=== PATIENT | female | born 1985 | race African-American/Black ===

== ENCOUNTER 2019-12-24 08:39 | Emergency (ER) | payer BC, SELFPAY ==
--- NOTE | 2019-12-24 08:52 | ECG_ITS ---
Test Reason : TACHY Blood Pressure : / mmHG Vent. Rate : 100 BPM Atrial Rate : 100 BPM P-R Int : 132 ms QRS Dur : 088 ms QT Int : 336 ms P-R-T Axes : 047 010 002 degrees QTc Int : 433 ms Sinus tachycardia Minimal voltage criteria for LVH, may be normal variant Nonspecific T wave abnormality RSR' or QR pattern in V1 suggests right ventricular conduction delay Abnormal ECG No previous ECGs available Referred By: Lidya Guo Electronically Signed By:OTIS PHELPS MD
--- NOTE | 2019-12-24 08:58 | ED.DIZZY ---
HPI - Dizziness General Chief Complaint: Dizziness Stated Complaint: TACHYCARDIA AND DIZZINESS X'S 4 HOURS Time Seen by Provider: 12/24/19 08:52 Source: patient Mode of arrival: ambulatory Limitations: no limitations History of Present Illness HPI Narrative: 34-year-old female with a past medical history mental health here with feelings of dizziness, palpitations since waking. The patient on arrival tells me she is feeling improved. Per EMS reports when they arrived the patient had a heart rate of 120 was very anxious appearing. The patient on arrival here has a heart rate of 100. She tells me her dizziness is improved. She had no associated chest pain or shortness of breath or headache with her symptoms. MD elicited complaint: dizziness Onset (ago): hour(s) Timing: awoke with symptoms Severity: mild Description: lightheadedness History of similar symptoms: No Exacerbating factors: change in body position Relieving factors: remaining still, rest and lying down Associated symptoms: palpatations Related Data Allergies Allergy/AdvReac Type Severity Reaction Status Date / Time haloperidol [From HALDOL] AdvReac Unknown EYES Unverified 11/03/19 19:18 ROLLED BACK Review of Systems Review of Systems: Yes all other systems are reviewed and are negative Constitutional: Constitutional: Reports no additional constitutional complaints, Denies body ache(s), Denies chills, Denies fever(s), Denies headache(s) and Denies weakness Eyes: Eyes: Reports no additional eye complaints and Denies change in vision ENT: Reports system reviewed and no additional complaints, except as documented, Reports dizziness, Denies headache(s), Denies nasal congestion, Denies nasal discharge and Denies neck pain Cardiovascular: Cardiovascular: Reports no additional cardiovascular complaints, Denies chest pain, Denies leg edema, Reports palpitations and Denies dyspnea Respiratory: Respiratory: Reports no additional respiratory complaints, Denies cough and Denies dyspnea Gastrointestinal: Gastrointestinal: Reports no additional gastrointestinal complaints, Denies abdominal pain, Denies diarrhea, Denies nausea and Denies vomiting Genitourinary: Genitourinary: Reports no additional female genitourinary complaints and Denies urinary incontinence Musculoskeletal: Musculoskeletal: Reports no additional musculoskeletal complaints, Denies back pain, Denies arthralgias, Denies joint swelling, Denies neck pain, Denies numbness and Denies tingling Integumentary/Breasts: Skin/Breast: Reports system reviewed and no additional complaints, except as docu and Denies rash Neurologic: Reports system reviewed and no additional complaints, except as documented, Denies Abnormal speech present, Reports dizziness, Denies headache(s), Denies numbness, Denies tingling and Denies weakness Endocrine: Endocrine: Reports palpitations PMFSH Past Medical History Attestation statement: The following information was validated with the patient. Source: obtained from family and nursing notes reviewed Medical History Psychosis Social History Social History Smoking Status: Never smoker Use of substances other than those prescribed or required for medical reasons: No Advance Directives: No Advance Directives Information Provided: No Physical Exam Vital Signs: Vital Signs: Last Vital Signs Temp 98.6 F 12/24/19 08:59 Pulse 96 12/24/19 10:20 Resp 20 12/24/19 08:59 BP 112/74 12/24/19 10:20 Pulse Ox 99 12/24/19 10:20 Body Mass Index 34.3 Const: General: cooperative, healthy appearing, comfortable and no acute distress Orientation/consciousness: patient oriented x3 Limitations: no limitations HENMT: Head: Yes normal to inspection Ears: hearing grossly normal bilaterally General nose exam: Normal external nose present Face and sinus: Yes normal facial exam Mouth: Normal oral and palatal mucosa present Throat: Yes posterior oropharynx normal Eyes: General: appearance normal, both eyes and all related structures Pupils: Equal, round and reactive pupils present Neck: Neck: Yes normal visual inspection Chest: Chest palpation & inspection: normal inspection of the chest Resp: Effort & Inspection: normal respiratory effort Auscultation: clear to auscultation bilaterally Cardio: Rate: regular rate Rhythm: regular rhythm Peripheral pulses: Peripheral pulses 2+ throughout GI: Inspection: Yes normal to inspection Palpation (GI): Soft to palpation and nontender Auscultation: normal bowel sounds Back/Spine/Pelvis: Thoracic/Lumbar Spine: thoracic and lumbar spine normal to inspection Skin: General skin exam: no rashes or lesions noted Neuro: General: patient oriented x3, Normal light touch and pain sensation, no focal motor deficits and normal sensation to monofilament Cranial nerves: Yes CN's II-XII intact bilaterally and Yes Equal, round and reactive pupils present Cognition (Neuro): normal cognition Speech: No Abnormal speech present Gait exam (Neuro): Normal gait present Motor exam (neuro): 5/5 motor strength present throughout Sensory Exam: Normal double simultaneous stimulation for sensation Coordination: [id number] test normal, [id number] test normal and tandem gait normal Extrem: General: Yes normal to inspection Course Course Course Narrative: 34-year-old female here with dizziness and palpitations which began with waking. On arrival symptoms are improving. The patient has a normal exam. Stable vital signs. Normal neuro exam. Will check labs, UA, urine , EKG, orthostatic vital signs. 1030- labs reviewed and unremarkable with the exception of mildly elevated TSH. Free T4 pending. UA and negative. EKG shows normal sinus rhythm. Orthostatic vital signs are negative. 1200-free T4 negative. Patient feeling improved and tolerating p.o.. Reviewed findings with the lab with the patient. She can follow-up outpatient with her primary care doctor. Reviewed worrisome signs and symptoms and when to return to the emergency department. Comfortable discharge home. MDM - Dizziness MDM Narrative Medical decision making narrative: ACS, orthostatic hypotension, anxiety, electrolyte abnormality, anemia, thyroid disease, tachycarrythmia Less likely ACS with unremarkable EKG and negative troponin, less likely orthostatic hypotension with negative orthostatics, less likely electrolyte abnormality/anemia with normal labs. Less likely tachyarrhythmia with no tachy or abnormal rhythms noted on machine cementer and folder while in the emergency department for 3-4 hours. May be hypothyroidism with abnormal TSH but free t4 normal so patient can followup with PCP. Medical Records Attestation: I reviewed the patient's medical records. Lab Data Attestation: I reviewed the patient's lab results. Result diagrams: 12/24/19 09:31 12/24/19 09:32 Labs: Lab Results 12/24/19 12/24/19 12/24/19 Range/Units 09:31 09:32 09:32 WBC 7.1 (4.8-10.8) X10*3/uL RBC 4.36 (4.20-5.50) X10*6/uL Hgb 13.1 (12.0-16.0) g/dl Hct 39.7 (37-47) % MCV 91.1 (80-98) fL MCH 30.0 (27.0-33.0) pg MCHC 33.0 (31.0-35.0) g/dl RDW 14.1 (11.0-16.0) % Plt Count 231 (160-400) X10*3/uL MPV 9.9 (9.4-12.3) fL Immature Gran % (Auto) 0.3 (0.0-0.4) % Neut % (Auto) 58.8 (45-73) % Lymph % (Auto) 31.7 (20-40) % [place] % (Auto) 7.1 (2-11) % Eos % (Auto) 1.4 (0-4) % Baso % (Auto) 0.7 (0-2) % Lymph # (Auto) 2.2 (1.2-4.9) X10*3/uL [place] # (Auto) 0.5 (0.1-1.2) X10*3/uL Eos # (Auto) 0.1 (0.0-0.4) X10*3/uL Baso # (Auto) 0.1 (0.0-0.2) X10*3/uL Abs Immat Gran (auto) 0.02 (0.00-0.03) X10*3/uL Absolute Neuts (auto) 4.2 (2.0-8.3) X10*3/uL Absolute Nucleated RBC 0.000 (0.0-0.012) X10*3/uL Nucleated RBC % (auto) 0.0 (0.0-0.2) /100WBC Sodium 139 (135-145) mmol/L Potassium 3.7 (3.3-5.1) mmol/l Chloride 106 (96-108) mmol/L Carbon Dioxide 24 (22-29) mmol/L Anion Gap 13 (12-20) BUN 15 (9-16) mg/dL Creatinine 0.92 (0.5-1.4) mg/dL Estim Creat Clear Calc 94.9 Estimated GFR > 60 Random Glucose 113 (60-115) mg/dL Calcium 8.2 L (8.4-10.2) mg/dL Magnesium 2.1 (1.6-2.6) mg/dL Total Bilirubin 0.3 (0.0-1.0) mg/dL Direct Bilirubin < 0.2 (0.0-0.5) mg/dL AST 12 (5-31) U/L ALT 15 (0-31) U/L Alkaline Phosphatase 72 (39-117) U/L Troponin I High Sens < 3.5 (<3.5-17.0) ng/L Total Protein 6.3 L (6.5-8.0) g/dL Albumin 4.1 (3.5-5.0) g/dL TSH 4.91 H (0.32-4.0) uIU/mL Free T4 0.97 (0.71-1.85) ng/dL Urine Color Urine Appearance Urine pH (5.0-8.0) Ur Specific [place] (1.005-1.025) Urine Protein (NEG-TRACE) MG/DL Urine Glucose (UA) (NEG) MG/DL Urine Ketones (NEG) MG/DL Urine Blood (NEG) Urine Nitrite (NEG) Ur Leukocyte Esterase (NEG) Urine RBC (0) /HPF Urine WBC (0-4) /HPF Ur Squamous Epith Cells /LPF Urine Bacteria /LPF Urine Test (NEGATIVE) 12/24/19 Range/Units 09:51 WBC (4.8-10.8) X10*3/uL RBC (4.20-5.50) X10*6/uL Hgb (12.0-16.0) g/dl Hct (37-47) % MCV (80-98) fL MCH (27.0-33.0) pg MCHC (31.0-35.0) g/dl RDW (11.0-16.0) % Plt Count (160-400) X10*3/uL MPV (9.4-12.3) fL Immature Gran % (Auto) (0.0-0.4) % Neut % (Auto) (45-73) % Lymph % (Auto) (20-40) % [place] % (Auto) (2-11) % Eos % (Auto) (0-4) % Baso % (Auto) (0-2) % Lymph # (Auto) (1.2-4.9) X10*3/uL [place] # (Auto) (0.1-1.2) X10*3/uL Eos # (Auto) (0.0-0.4) X10*3/uL Baso # (Auto) (0.0-0.2) X10*3/uL Abs Immat Gran (auto) (0.00-0.03) X10*3/uL Absolute Neuts (auto) (2.0-8.3) X10*3/uL Absolute Nucleated RBC (0.0-0.012) X10*3/uL Nucleated RBC % (auto) (0.0-0.2) /100WBC Sodium (135-145) mmol/L Potassium (3.3-5.1) mmol/l Chloride (96-108) mmol/L Carbon Dioxide (22-29) mmol/L Anion Gap (12-20) BUN (9-16) mg/dL Creatinine (0.5-1.4) mg/dL Estim Creat Clear Calc Estimated GFR Random Glucose (60-115) mg/dL Calcium (8.4-10.2) mg/dL Magnesium (1.6-2.6) mg/dL Total Bilirubin (0.0-1.0) mg/dL Direct Bilirubin (0.0-0.5) mg/dL AST (5-31) U/L ALT (0-31) U/L Alkaline Phosphatase (39-117) U/L Troponin I High Sens (<3.5-17.0) ng/L Total Protein (6.5-8.0) g/dL Albumin (3.5-5.0) g/dL TSH (0.32-4.0) uIU/mL Free T4 (0.71-1.85) ng/dL Urine Color YELLOW Urine Appearance HAZY Urine pH 5.5 (5.0-8.0) Ur Specific [place] >= 1.030 H (1.005-1.025) Urine Protein NEG (NEG-TRACE) MG/DL Urine Glucose (UA) NEG (NEG) MG/DL Urine Ketones NEG (NEG) MG/DL Urine Blood TRACE (NEG) Urine Nitrite NEG (NEG) Ur Leukocyte Esterase NEG (NEG) Urine RBC 0-2 (0) /HPF Urine WBC 1-4 (0-4) /HPF Ur Squamous Epith Cells 3+ /LPF Urine Bacteria NONE /LPF Urine Test NEGATIVE (NEGATIVE) ECG Data Attestation: I personally reviewed and interpreted this ECG as follows: ECG interpretation date: 12/24/19 Interpretation: Normal sinus rhythm with a rate of 100. Normal p.r., normal QRS, normal QT, nonspecific T-wave abnormality. Discharge Plan Discharge Clinical Impression: Dizziness Patient Disposition: Home, Self-Care Instructions: Dizziness (ED) Additional Instructions: Change positions slowly Your thyroid test today was slightly abnormal. Please follow-up with your PCP in regards to this. Referrals: Lilli Grissom DO [Primary Care Provider] - 2 days Interventions: ED Discharge Assessment Last Done: 12/24/19 11:52
[2019-12-24 08:59] VITALS: BP 114/76; BP 119/75; PULSE 102; RESP 20; TEMP 37; O2SAT 97; O2SAT 98; BMI 34.3
[2019-12-24 09:36] VITALS: BP 106/66; PULSE 98
[2019-12-24 09:37] VITALS: BP 111/79; PULSE 96
[2019-12-24 09:37] LABS: MANUAL DIFF FLAG NO
[2019-12-24 09:38] VITALS: BP 122/74; PULSE 104
[2019-12-24 09:38] LABS: Basophils Absolute Auto 0.1 X10*3/uL (0.0-0.2); Basophils Percent Auto 0.7 % (0-2); Eosinophils Absolute Auto 0.1 X10*3/uL (0.0-0.4); Eosinophils Percent Auto 1.4 % (0-4); Hematocrit 39.7 % (37-47); Hemoglobin 13.1 g/dl (12.0-16.0); Imm Gran Abs Auto 0.02 X10*3/uL (0.00-0.03); Imm Gran Pct Auto 0.3 % (0.0-0.4); Lymphocytes Absolute Auto 2.2 X10*3/uL (1.2-4.9); Lymphocytes Percent Auto 31.7 % (20-40); Mean Corpuscular Volume 91.1 fL (80-98); Mean Platelet Volume 9.9 fL (9.4-12.3); Monocytes Absolute Auto 0.5 X10*3/uL (0.1-1.2); Monocytes Percent Auto 7.1 % (2-11); Neutrophils Absolute Auto 4.2 X10*3/uL (2.0-8.3); Neutrophils Percent Auto 58.8 % (45-73); Platelet Count 231 X10*3/uL (160-400); Red Blood Count 4.36 X10*6/uL (4.20-5.50); Red Cell Distribution Width 14.1 % (11.0-16.0); White Blood Count 7.1 X10*3/uL (4.8-10.8)
[2019-12-24 09:59] LABS: Glucose Urine UA NEG (NEG); Leukocyte Esterase Urine NEG (NEG); Nitrite Urine NEG (NEG); PH 5.5 (5.0-8.0); Specific Gravity - Urine >= 1.030 (1.005-1.025); Urine Blood TRACE (NEG); Urine Ketones NEG (NEG); Urine Protein NEG (NEG-TRACE)
[2019-12-24 10:01] LABS: Alanine Aminotransferase 15 U/L (0-31); Albumin Level 4.1 g/dL (3.5-5.0); Alkaline Phosphatase 72 U/L (39-117); Anion Gap 13 (12-20); Aspartate Amino Transferase 12 U/L (5-31); Bilirubin Direct < 0.2 mg/dL (0.0-0.5); Bilirubin Total 0.3 mg/dL (0.0-1.0); Blood Urea Nitrogen 15 mg/dL (9-16); Calcium 8.2 mg/dL (8.4-10.2); Carbon Dioxide 24 mmol/L (22-29); Chloride 106 mmol/L (96-108); Creatinine Clr Calc Pharmacy 94.9; Estimated Glomerular Filt Rate > 60; Glucose Random 113 mg/dL (60-115); Magnesium 2.1 mg/dL (1.6-2.6); Potassium 3.7 mmol/l (3.3-5.1); Sodium 139 mmol/L (135-145); Total Protein 6.3 g/dL (6.5-8.0)
[2019-12-24 10:04] LABS: Appearance Urine HAZY; Color Urine YELLOW
[2019-12-24 10:06] LABS: UPreg QC Valid YES; Urine Pregnancy NEGATIVE (NEGATIVE)
[2019-12-24 10:08] LABS: Troponin-I High Sensitivity < 3.5 ng/L (<3.5-17.0)
[2019-12-24 10:11] LABS: RBC Urine 0-2 /HPF (0); Squamous Epithelial Cell Urine 3+ /LPF
[2019-12-24 10:20] VITALS: BP 112/74; PULSE 96; O2SAT 99
[2019-12-24 10:22] LABS: Thyroid Stimulating Hormone 4.91 uIU/mL (0.32-4.0)
--- NOTE | 2019-12-24 10:55 | PC.NURSE ---
PT RESTING IN THE STRETCHER, ALERT AND ORIENTED, SKIN PATRICK FOR ETHNICITY. PT DENIES DIXZINESS/PAIN AT THIS TIME.
[2019-12-24 11:43] LABS: Free T4 (Free Thyroxine) 0.97 ng/dL (0.71-1.85)
[2019-12-24 12:00] VITALS: BP 102/58; PULSE 90; RESP 18; O2SAT 100
== END 2019-12-24 12:01 | disposition home or self-care (01) ==
PROVIDERS: Nurse Practitioner Family; Emergency Provider Emergency Medicine; PCP Internal Medicine
DX: R00.0 Tachycardia, unspecified (principal); R42 Dizziness and giddiness; R00.2 Palpitations
CPT/HCPCS: 36415; 80048; 80076; 81001; 81003; 81025; 83735; 84439; 84443; 84484; 85025; 93005; 99283; 99284

== ENCOUNTER 2020-03-16 14:56 | Outpatient (REF) | payer BC, SELFPAY ==
[2020-03-16 17:11] LABS: Hematocrit 43.2 % (37-47); Hemoglobin 14.4 g/dl (12.0-16.0); Mean Corpuscular HGB Conc 33.3 g/dl (31.0-35.0); Mean Corpuscular Hemoglobin 30.6 pg (27.0-33.0); Mean Corpuscular Volume 91.9 fL (80-98); Mean Platelet Volume 10.7 fL (9.4-12.3); NRBC Pct Auto 0.2 /100WBC (0.0-0.2); Neut%MD 37.3 %; Neutrophils Absolute Auto 3.9 X10*3/uL (2.0-8.3); Platelet Count 291 X10*3/uL (160-400); Red Cell Distribution Width 13.6 % (11.0-16.0); WBCANC 10.3 X10*3/uL; White Blood Count 10.3 X10*3/uL (4.8-10.8)
[2020-03-16 17:46] LABS: Atypical Lymph Absolute Manual 0.9 x10*3/uL; Atypical Lymphs Percent Manual 9 % (0-6); Band Neutrophils Percent 0 % (3-5); Lymphocytes Absolute Manual 4.6 X10*3/uL (0.6-4.8); Lymphocytes Percent Manual 45 % (20-40); Monocytes Absolute Manual 0.8 X10*3/uL (0.0-1.2); Monocytes Percent Manual 8 % (2-11); Neutrophils Absolute Manual 3.9 X10*3/uL (2.2-7.9); Neutrophils Percent Manual 38 % (45-73)
[2020-03-16 17:47] LABS: Large Platelet PRESENT; Platelet Estimate NORMAL (NORMAL); Platelet Morphology Comment NOTED; RBC Morphology NORMAL
== END 2020-03-16 14:57 | disposition home or self-care (01) ==
LOC: HO.HMGCLR 14:56
PROVIDERS: PCP Internal Medicine; Visit Provider Psychiatry & Neurology Psychiatry
DX: Z51.81 Encounter for therapeutic drug level monitoring (principal)
CPT/HCPCS: 36415; 85007; 85025; 85027; 85048

== ENCOUNTER 2020-03-23 08:40 | Outpatient (REF) | payer BC, SELFPAY ==
[2020-03-23 11:12] LABS: MANUAL DIFF FLAG NO
[2020-03-23 11:45] LABS: Basophils Absolute Auto 0.1 X10*3/uL (0.0-0.2); Basophils Percent Auto 0.6 % (0-2); Eosinophils Absolute Auto 0.1 X10*3/uL (0.0-0.4); Eosinophils Percent Auto 1.6 % (0-4); Hematocrit 41.7 % (37-47); Hemoglobin 13.7 g/dl (12.0-16.0); Imm Gran Abs Auto 0.03 X10*3/uL (0.00-0.03); Imm Gran Pct Auto 0.3 % (0.0-0.4); Lymphocytes Absolute Auto 4.2 X10*3/uL (1.2-4.9); Lymphocytes Percent Auto 48.8 % (20-40); Mean Corpuscular HGB Conc 32.9 g/dl (31.0-35.0); Mean Corpuscular Volume 91.2 fL (80-98); Mean Platelet Volume 11.1 fL (9.4-12.3); Monocytes Absolute Auto 0.6 X10*3/uL (0.1-1.2); Monocytes Percent Auto 6.6 % (2-11); Neutrophils Absolute Auto 3.6 X10*3/uL (2.0-8.3); Neutrophils Percent Auto 42.1 % (45-73); Platelet Count 270 X10*3/uL (160-400); Red Blood Count 4.57 X10*6/uL (4.20-5.50); Red Cell Distribution Width 14.1 % (11.0-16.0); White Blood Count 8.6 X10*3/uL (4.8-10.8)
== END 2020-03-23 08:41 | disposition home or self-care (01) ==
LOC: HO.HMGCLR 08:40
PROVIDERS: PCP Internal Medicine; Visit Provider Psychiatry & Neurology Psychiatry
DX: Z51.81 Encounter for therapeutic drug level monitoring (principal)
CPT/HCPCS: 36415; 85025; 85048

== ENCOUNTER 2020-03-30 08:42 | Outpatient (REF) | payer BC, SELFPAY ==
[2020-03-30 11:20] LABS: MANUAL DIFF FLAG NO
[2020-03-30 11:28] LABS: Basophils Absolute Auto 0.1 X10*3/uL (0.0-0.2); Basophils Percent Auto 0.7 % (0-2); Eosinophils Absolute Auto 0.2 X10*3/uL (0.0-0.4); Eosinophils Percent Auto 2.9 % (0-4); Hematocrit 39.5 % (37-47); Hemoglobin 12.9 g/dl (12.0-16.0); Imm Gran Abs Auto 0.03 X10*3/uL (0.00-0.03); Imm Gran Pct Auto 0.4 % (0.0-0.4); Lymphocytes Absolute Auto 3.3 X10*3/uL (1.2-4.9); Lymphocytes Percent Auto 46.2 % (20-40); Mean Corpuscular HGB Conc 32.7 g/dl (31.0-35.0); Mean Corpuscular Hemoglobin 29.9 pg (27.0-33.0); Mean Corpuscular Volume 91.4 fL (80-98); Mean Platelet Volume 11.1 fL (9.4-12.3); Monocytes Absolute Auto 0.4 X10*3/uL (0.1-1.2); Monocytes Percent Auto 5.9 % (2-11); NRBC Pct Auto 0.3 /100WBC (0.0-0.2); Neut%MD 43.9 %; Neutrophils Absolute Auto 3.1 X10*3/uL (2.0-8.3); Neutrophils Percent Auto 43.9 % (45-73); Platelet Count 236 X10*3/uL (160-400); Red Blood Count 4.32 X10*6/uL (4.20-5.50); Red Cell Distribution Width 14.8 % (11.0-16.0); WBCANC 7.2 X10*3/uL; White Blood Count 7.2 X10*3/uL (4.8-10.8)
== END 2020-03-30 08:43 | disposition home or self-care (01) ==
LOC: HO.HMGCLR 08:42
PROVIDERS: Visit Provider Psychiatry & Neurology Psychiatry
DX: Z51.81 Encounter for therapeutic drug level monitoring (principal)
CPT/HCPCS: 36415; 85025; 85048

== ENCOUNTER 2020-04-06 09:38 | Outpatient (REF) | payer BC, SELFPAY ==
[2020-04-06 11:08] LABS: MANUAL DIFF FLAG NO
[2020-04-06 11:15] LABS: Basophils Absolute Auto 0.1 X10*3/uL (0.0-0.2); Basophils Percent Auto 0.8 % (0-2); Eosinophils Absolute Auto 0.2 X10*3/uL (0.0-0.4); Eosinophils Percent Auto 2.8 % (0-4); Hemoglobin 13.2 g/dl (12.0-16.0); Imm Gran Abs Auto 0.02 X10*3/uL (0.00-0.03); Imm Gran Pct Auto 0.3 % (0.0-0.4); Lymphocytes Absolute Auto 2.9 X10*3/uL (1.2-4.9); Lymphocytes Percent Auto 45.9 % (20-40); Mean Corpuscular HGB Conc 32.2 g/dl (31.0-35.0); Mean Corpuscular Hemoglobin 29.9 pg (27.0-33.0); Mean Corpuscular Volume 92.8 fL (80-98); Monocytes Absolute Auto 0.5 X10*3/uL (0.1-1.2); Monocytes Percent Auto 7.2 % (2-11); NRBC Pct Auto 0.3 /100WBC (0.0-0.2); Neutrophils Absolute Auto 2.8 X10*3/uL (2.0-8.3); Platelet Count 267 X10*3/uL (160-400); Red Blood Count 4.42 X10*6/uL (4.20-5.50); Red Cell Distribution Width 15.1 % (11.0-16.0); White Blood Count 6.4 X10*3/uL (4.8-10.8)
== END 2020-04-06 09:39 | disposition home or self-care (01) ==
LOC: HO.HMGCLR 09:38
PROVIDERS: PCP Internal Medicine; Visit Provider Psychiatry & Neurology Psychiatry
DX: Z51.81 Encounter for therapeutic drug level monitoring (principal)
CPT/HCPCS: 36415; 85025

== ENCOUNTER 2020-04-13 09:16 | Outpatient (REF) | payer BC, SELFPAY ==
[2020-04-13 11:12] LABS: MANUAL DIFF FLAG NO
[2020-04-13 11:27] LABS: Basophils Absolute Auto 0.1 X10*3/uL (0.0-0.2); Basophils Percent Auto 0.6 % (0-2); Eosinophils Absolute Auto 0.2 X10*3/uL (0.0-0.4); Eosinophils Percent Auto 2.2 % (0-4); Hematocrit 39.5 % (37-47); Hemoglobin 12.9 g/dl (12.0-16.0); Imm Gran Abs Auto 0.03 X10*3/uL (0.00-0.03); Imm Gran Pct Auto 0.4 % (0.0-0.4); Lymphocytes Absolute Auto 3.1 X10*3/uL (1.2-4.9); Lymphocytes Percent Auto 39.9 % (20-40); Mean Corpuscular HGB Conc 32.7 g/dl (31.0-35.0); Mean Corpuscular Hemoglobin 30.4 pg (27.0-33.0); Mean Corpuscular Volume 92.9 fL (80-98); Monocytes Absolute Auto 0.5 X10*3/uL (0.1-1.2); Neutrophils Percent Auto 50.9 % (45-73); Platelet Count 290 X10*3/uL (160-400); Red Blood Count 4.25 X10*6/uL (4.20-5.50); Red Cell Distribution Width 14.7 % (11.0-16.0); White Blood Count 7.8 X10*3/uL (4.8-10.8)
== END 2020-04-13 09:17 | disposition home or self-care (01) ==
LOC: HO.HMGCLR 09:16
PROVIDERS: PCP Internal Medicine; Visit Provider Psychiatry & Neurology Psychiatry
DX: Z51.81 Encounter for therapeutic drug level monitoring (principal)
CPT/HCPCS: 36415; 85025

== ENCOUNTER 2020-04-20 09:00 | Outpatient (REF) | payer BC, SELFPAY ==
[2020-04-20 11:16] LABS: MANUAL DIFF FLAG NO
[2020-04-20 11:30] LABS: Neut%MD 45.5 %; Neutrophils Absolute Auto 3.5 X10*3/uL (2.0-8.3); WBCANC 7.6 X10*3/uL
[2020-04-20 11:34] LABS: Basophils Absolute Auto 0.1 X10*3/uL (0.0-0.2); Basophils Percent Auto 0.8 % (0-2); Eosinophils Absolute Auto 0.2 X10*3/uL (0.0-0.4); Eosinophils Percent Auto 2.4 % (0-4); Hematocrit 40.2 % (37-47); Imm Gran Abs Auto 0.03 X10*3/uL (0.00-0.03); Imm Gran Pct Auto 0.4 % (0.0-0.4); Lymphocytes Absolute Auto 3.3 X10*3/uL (1.2-4.9); Lymphocytes Percent Auto 43.7 % (20-40); Mean Corpuscular HGB Conc 32.3 g/dl (31.0-35.0); Mean Corpuscular Volume 92.6 fL (80-98); Monocytes Absolute Auto 0.6 X10*3/uL (0.1-1.2); Monocytes Percent Auto 7.2 % (2-11); Neutrophils Absolute Auto 3.5 X10*3/uL (2.0-8.3); Neutrophils Percent Auto 45.5 % (45-73); Platelet Count 320 X10*3/uL (160-400); Red Blood Count 4.34 X10*6/uL (4.20-5.50); Red Cell Distribution Width 14.6 % (11.0-16.0); White Blood Count 7.6 X10*3/uL (4.8-10.8)
== END 2020-04-20 09:01 | disposition home or self-care (01) ==
LOC: HO.HMGCLR 09:00
PROVIDERS: PCP Internal Medicine; Visit Provider Psychiatry & Neurology Psychiatry
DX: Z51.81 Encounter for therapeutic drug level monitoring (principal)
CPT/HCPCS: 36415; 85025; 85048

== ENCOUNTER 2020-04-27 08:49 | Outpatient (REF) | payer BC, SELFPAY ==
[2020-04-27 11:02] LABS: MANUAL DIFF FLAG NO
[2020-04-27 11:14] LABS: Basophils Absolute Auto 0.1 X10*3/uL (0.0-0.2); Basophils Percent Auto 0.9 % (0-2); Eosinophils Absolute Auto 0.2 X10*3/uL (0.0-0.4); Eosinophils Percent Auto 2.4 % (0-4); Hematocrit 38.8 % (37-47); Hemoglobin 12.7 g/dl (12.0-16.0); Imm Gran Abs Auto 0.02 X10*3/uL (0.00-0.03); Imm Gran Pct Auto 0.3 % (0.0-0.4); Lymphocytes Absolute Auto 3.5 X10*3/uL (1.2-4.9); Lymphocytes Percent Auto 49.4 % (20-40); Mean Corpuscular HGB Conc 32.7 g/dl (31.0-35.0); Mean Corpuscular Hemoglobin 30.1 pg (27.0-33.0); Mean Corpuscular Volume 91.9 fL (80-98); Mean Platelet Volume 11.2 fL (9.4-12.3); Monocytes Absolute Auto 0.4 X10*3/uL (0.1-1.2); Monocytes Percent Auto 6.2 % (2-11); Neutrophils Absolute Auto 2.9 X10*3/uL (2.0-8.3); Neutrophils Percent Auto 40.8 % (45-73); Platelet Count 288 X10*3/uL (160-400); Red Blood Count 4.22 X10*6/uL (4.20-5.50); Red Cell Distribution Width 14.5 % (11.0-16.0); White Blood Count 7.1 X10*3/uL (4.8-10.8)
== END 2020-04-27 08:50 | disposition home or self-care (01) ==
LOC: HO.HMGCLR 08:49
PROVIDERS: PCP Internal Medicine; Visit Provider Psychiatry & Neurology Psychiatry
DX: Z51.81 Encounter for therapeutic drug level monitoring (principal)
CPT/HCPCS: 36415; 85025

== ENCOUNTER 2020-05-04 10:32 | Outpatient (REF) | payer BC, SELFPAY ==
[2020-05-04 11:43] LABS: MANUAL DIFF FLAG NO
[2020-05-04 11:59] LABS: Basophils Absolute Auto 0.1 X10*3/uL (0.0-0.2); Eosinophils Absolute Auto 0.2 X10*3/uL (0.0-0.4); Eosinophils Percent Auto 2.9 % (0-4); Hematocrit 39.7 % (37-47); Hemoglobin 12.7 g/dl (12.0-16.0); Imm Gran Abs Auto 0.03 X10*3/uL (0.00-0.03); Imm Gran Pct Auto 0.4 % (0.0-0.4); Lymphocytes Percent Auto 41.1 % (20-40); Mean Corpuscular Hemoglobin 29.6 pg (27.0-33.0); Mean Corpuscular Volume 92.5 fL (80-98); Monocytes Absolute Auto 0.4 X10*3/uL (0.1-1.2); Monocytes Percent Auto 5.9 % (2-11); Neut%MD 48.7 %; Neutrophils Absolute Auto 3.5 X10*3/uL (2.0-8.3); Neutrophils Percent Auto 48.7 % (45-73); Platelet Count 273 X10*3/uL (160-400); Red Blood Count 4.29 X10*6/uL (4.20-5.50); Red Cell Distribution Width 14.5 % (11.0-16.0); WBCANC 7.3 X10*3/uL; White Blood Count 7.3 X10*3/uL (4.8-10.8)
== END 2020-05-04 10:33 | disposition home or self-care (01) ==
LOC: HO.HMGCLR 10:32
PROVIDERS: Visit Provider Psychiatry & Neurology Psychiatry
DX: Z51.81 Encounter for therapeutic drug level monitoring (principal)
CPT/HCPCS: 36415; 85025; 85048

== ENCOUNTER 2020-05-11 09:16 | Outpatient (REF) | payer BC, SELFPAY ==
[2020-05-11 11:10] LABS: MANUAL DIFF FLAG NO
[2020-05-11 11:20] LABS: Basophils Absolute Auto 0.1 X10*3/uL (0.0-0.2); Basophils Percent Auto 0.8 % (0-2); Eosinophils Absolute Auto 0.3 X10*3/uL (0.0-0.4); Eosinophils Percent Auto 3.6 % (0-4); Hematocrit 39.4 % (37-47); Hemoglobin 12.7 g/dl (12.0-16.0); Imm Gran Abs Auto 0.02 X10*3/uL (0.00-0.03); Imm Gran Pct Auto 0.3 % (0.0-0.4); Lymphocytes Absolute Auto 3.2 X10*3/uL (1.2-4.9); Lymphocytes Percent Auto 40.7 % (20-40); Mean Corpuscular HGB Conc 32.2 g/dl (31.0-35.0); Mean Corpuscular Hemoglobin 29.9 pg (27.0-33.0); Mean Corpuscular Volume 92.7 fL (80-98); Monocytes Absolute Auto 0.6 X10*3/uL (0.1-1.2); Monocytes Percent Auto 7.9 % (2-11); NRBC Pct Auto 0.4 /100WBC (0.0-0.2); Neutrophils Absolute Auto 3.7 X10*3/uL (2.0-8.3); Neutrophils Percent Auto 46.7 % (45-73); Platelet Count 270 X10*3/uL (160-400); Red Blood Count 4.25 X10*6/uL (4.20-5.50); Red Cell Distribution Width 14.5 % (11.0-16.0); White Blood Count 7.8 X10*3/uL (4.8-10.8)
== END 2020-05-11 09:17 | disposition home or self-care (01) ==
LOC: HO.HMGCLR 09:16
PROVIDERS: PCP Internal Medicine; Visit Provider Psychiatry & Neurology Psychiatry
DX: Z51.81 Encounter for therapeutic drug level monitoring (principal)
CPT/HCPCS: 36415; 85025

== ENCOUNTER 2020-05-18 11:02 | Outpatient (REF) | payer BC, SELFPAY ==
[2020-05-18 13:49] LABS: MANUAL DIFF FLAG NO
[2020-05-18 13:55] LABS: Basophils Absolute Auto 0.1 X10*3/uL (0.0-0.2); Basophils Percent Auto 0.7 % (0-2); Eosinophils Absolute Auto 0.2 X10*3/uL (0.0-0.4); Hematocrit 40.7 % (37-47); Hemoglobin 13.1 g/dl (12.0-16.0); Imm Gran Abs Auto 0.02 X10*3/uL (0.00-0.03); Imm Gran Pct Auto 0.3 % (0.0-0.4); Lymphocytes Absolute Auto 2.8 X10*3/uL (1.2-4.9); Lymphocytes Percent Auto 41.3 % (20-40); Mean Corpuscular HGB Conc 32.2 g/dl (31.0-35.0); Mean Corpuscular Hemoglobin 29.9 pg (27.0-33.0); Mean Corpuscular Volume 92.9 fL (80-98); Mean Platelet Volume 11.2 fL (9.4-12.3); Monocytes Absolute Auto 0.5 X10*3/uL (0.1-1.2); Monocytes Percent Auto 7.9 % (2-11); Neutrophils Absolute Auto 3.1 X10*3/uL (2.0-8.3); Neutrophils Percent Auto 46.8 % (45-73); Platelet Count 279 X10*3/uL (160-400); Red Blood Count 4.38 X10*6/uL (4.20-5.50); Red Cell Distribution Width 14.6 % (11.0-16.0); White Blood Count 6.7 X10*3/uL (4.8-10.8)
== END 2020-05-18 11:03 | disposition home or self-care (01) ==
LOC: HO.HMGCLR 11:02
PROVIDERS: PCP Internal Medicine; Visit Provider Psychiatry & Neurology Psychiatry
DX: Z51.81 Encounter for therapeutic drug level monitoring (principal)
CPT/HCPCS: 36415; 85025

== ENCOUNTER 2020-05-25 08:42 | Outpatient (REF) | payer BC, SELFPAY ==
[2020-05-25 11:17] LABS: MANUAL DIFF FLAG NO
[2020-05-25 11:39] LABS: Basophils Absolute Auto 0.1 X10*3/uL (0.0-0.2); Basophils Percent Auto 0.9 % (0-2); Eosinophils Absolute Auto 0.2 X10*3/uL (0.0-0.4); Eosinophils Percent Auto 2.9 % (0-4); Hemoglobin 13.1 g/dl (12.0-16.0); Imm Gran Abs Auto 0.02 X10*3/uL (0.00-0.03); Imm Gran Pct Auto 0.3 % (0.0-0.4); Lymphocytes Absolute Auto 3.2 X10*3/uL (1.2-4.9); Lymphocytes Percent Auto 49.9 % (20-40); Mean Corpuscular HGB Conc 32.8 g/dl (31.0-35.0); Mean Corpuscular Volume 91.5 fL (80-98); Mean Platelet Volume 11.4 fL (9.4-12.3); Monocytes Absolute Auto 0.5 X10*3/uL (0.1-1.2); Monocytes Percent Auto 6.9 % (2-11); Neutrophils Absolute Auto 2.5 X10*3/uL (2.0-8.3); Neutrophils Percent Auto 39.1 % (45-73); Platelet Count 293 X10*3/uL (160-400); Red Blood Count 4.37 X10*6/uL (4.20-5.50); Red Cell Distribution Width 14.2 % (11.0-16.0); White Blood Count 6.5 X10*3/uL (4.8-10.8)
== END 2020-05-25 08:43 | disposition home or self-care (01) ==
LOC: HO.HMGCLR 08:42
PROVIDERS: Visit Provider Psychiatry & Neurology Psychiatry
DX: Z51.81 Encounter for therapeutic drug level monitoring (principal)
CPT/HCPCS: 36415; 85025; 85048

== ENCOUNTER 2020-06-01 08:37 | Outpatient (REF) | payer BC, SELFPAY ==
[2020-06-01 11:18] LABS: MANUAL DIFF FLAG NO
[2020-06-01 11:28] LABS: Basophils Absolute Auto 0.1 X10*3/uL (0.0-0.2); Basophils Percent Auto 0.8 % (0-2); Eosinophils Absolute Auto 0.2 X10*3/uL (0.0-0.4); Eosinophils Percent Auto 2.5 % (0-4); Hematocrit 41.3 % (37-47); Hemoglobin 13.2 g/dl (12.0-16.0); Imm Gran Abs Auto 0.03 X10*3/uL (0.00-0.03); Imm Gran Pct Auto 0.4 % (0.0-0.4); Lymphocytes Absolute Auto 3.7 X10*3/uL (1.2-4.9); Lymphocytes Percent Auto 48.9 % (20-40); Mean Corpuscular Hemoglobin 29.7 pg (27.0-33.0); Mean Corpuscular Volume 92.8 fL (80-98); Monocytes Absolute Auto 0.5 X10*3/uL (0.1-1.2); Monocytes Percent Auto 7.1 % (2-11); Neutrophils Absolute Auto 3.1 X10*3/uL (2.0-8.3); Neutrophils Percent Auto 40.3 % (45-73); Platelet Count 294 X10*3/uL (160-400); Red Blood Count 4.45 X10*6/uL (4.20-5.50); Red Cell Distribution Width 14.1 % (11.0-16.0); White Blood Count 7.6 X10*3/uL (4.8-10.8)
== END 2020-06-01 08:38 | disposition home or self-care (01) ==
LOC: HO.HMGCLR 08:37
PROVIDERS: Visit Provider Psychiatry & Neurology Psychiatry
DX: Z51.81 Encounter for therapeutic drug level monitoring (principal)
CPT/HCPCS: 36415; 85025

== ENCOUNTER 2020-06-08 11:14 | Outpatient (REF) | payer BC, SELFPAY ==
[2020-06-08 14:03] LABS: MANUAL DIFF FLAG NO
[2020-06-08 14:09] LABS: Basophils Absolute Auto 0.1 X10*3/uL (0.0-0.2); Basophils Percent Auto 0.7 % (0-2); Eosinophils Absolute Auto 0.2 X10*3/uL (0.0-0.4); Eosinophils Percent Auto 2.4 % (0-4); Hematocrit 40.7 % (37-47); Hemoglobin 13.1 g/dl (12.0-16.0); Imm Gran Abs Auto 0.02 X10*3/uL (0.00-0.03); Imm Gran Pct Auto 0.3 % (0.0-0.4); Lymphocytes Absolute Auto 2.6 X10*3/uL (1.2-4.9); Lymphocytes Percent Auto 35.6 % (20-40); Mean Corpuscular HGB Conc 32.2 g/dl (31.0-35.0); Mean Corpuscular Hemoglobin 29.7 pg (27.0-33.0); Mean Corpuscular Volume 92.3 fL (80-98); Mean Platelet Volume 11.1 fL (9.4-12.3); Monocytes Absolute Auto 0.5 X10*3/uL (0.1-1.2); Monocytes Percent Auto 7.2 % (2-11); Neutrophils Absolute Auto 3.9 X10*3/uL (2.0-8.3); Neutrophils Percent Auto 53.8 % (45-73); Platelet Count 281 X10*3/uL (160-400); Red Blood Count 4.41 X10*6/uL (4.20-5.50); Red Cell Distribution Width 14.1 % (11.0-16.0); White Blood Count 7.2 X10*3/uL (4.8-10.8)
== END 2020-06-08 11:15 | disposition home or self-care (01) ==
LOC: HO.HMGCLR 11:14
PROVIDERS: Visit Provider Psychiatry & Neurology Psychiatry
DX: Z51.81 Encounter for therapeutic drug level monitoring (principal); Z79.899 Other long term (current) drug therapy
CPT/HCPCS: 36415; 85025

== ENCOUNTER → 2020-06-12 13:17 | Outpatient (BNVA) | payer BC, SELFPAY | PROVIDERS: PCP Internal Medicine; Visit Provider Dietitian, Registered | DX: E66.9 Obesity, unspecified (principal) | CPT/HCPCS: 97802 ==

== ENCOUNTER 2020-06-15 09:26 | Outpatient (REF) | payer BC, SELFPAY ==
[2020-06-15 11:28] LABS: MANUAL DIFF FLAG NO
[2020-06-15 11:40] LABS: Basophils Absolute Auto 0.1 X10*3/uL (0.0-0.2); Basophils Percent Auto 0.7 % (0-2); Eosinophils Absolute Auto 0.2 X10*3/uL (0.0-0.4); Eosinophils Percent Auto 2.9 % (0-4); Hematocrit 40.8 % (37-47); Hemoglobin 13.2 g/dl (12.0-16.0); Imm Gran Abs Auto 0.04 X10*3/uL (0.00-0.03); Imm Gran Pct Auto 0.5 % (0.0-0.4); Lymphocytes Absolute Auto 2.9 X10*3/uL (1.2-4.9); Mean Corpuscular HGB Conc 32.4 g/dl (31.0-35.0); Mean Corpuscular Hemoglobin 29.9 pg (27.0-33.0); Mean Corpuscular Volume 92.5 fL (80-98); Mean Platelet Volume 11.1 fL (9.4-12.3); Monocytes Absolute Auto 0.5 X10*3/uL (0.1-1.2); Monocytes Percent Auto 6.4 % (2-11); Neutrophils Absolute Auto 3.8 X10*3/uL (2.0-8.3); Neutrophils Percent Auto 50.5 % (45-73); Platelet Count 268 X10*3/uL (160-400); Red Blood Count 4.41 X10*6/uL (4.20-5.50); Red Cell Distribution Width 14.4 % (11.0-16.0); White Blood Count 7.5 X10*3/uL (4.8-10.8)
== END 2020-06-15 09:27 | disposition home or self-care (01) ==
LOC: HO.HMGCLR 09:26
PROVIDERS: PCP Internal Medicine; Visit Provider Psychiatry & Neurology Psychiatry
DX: Z51.81 Encounter for therapeutic drug level monitoring (principal)
CPT/HCPCS: 36415; 85025; 85048

== ENCOUNTER 2020-06-22 08:40 | Outpatient (REF) | payer BC, SELFPAY ==
[2020-06-22 11:39] LABS: MANUAL DIFF FLAG NO
[2020-06-22 12:00] LABS: Basophils Absolute Auto 0.1 X10*3/uL (0.0-0.2); Basophils Percent Auto 0.9 % (0-2); Eosinophils Absolute Auto 0.2 X10*3/uL (0.0-0.4); Eosinophils Percent Auto 2.6 % (0-4); Hematocrit 40.3 % (37-47); Imm Gran Abs Auto 0.02 X10*3/uL (0.00-0.03); Imm Gran Pct Auto 0.3 % (0.0-0.4); Lymphocytes Absolute Auto 3.5 X10*3/uL (1.2-4.9); Lymphocytes Percent Auto 50.6 % (20-40); Mean Corpuscular HGB Conc 32.3 g/dl (31.0-35.0); Mean Corpuscular Hemoglobin 29.7 pg (27.0-33.0); Mean Platelet Volume 11.4 fL (9.4-12.3); Monocytes Absolute Auto 0.4 X10*3/uL (0.1-1.2); Monocytes Percent Auto 5.4 % (2-11); Neutrophils Absolute Auto 2.8 X10*3/uL (2.0-8.3); Neutrophils Percent Auto 40.2 % (45-73); Platelet Count 276 X10*3/uL (160-400); Red Blood Count 4.38 X10*6/uL (4.20-5.50); White Blood Count 6.9 X10*3/uL (4.8-10.8)
== END 2020-06-22 08:41 | disposition home or self-care (01) ==
LOC: HO.HMGCLR 08:40
PROVIDERS: PCP Internal Medicine; Visit Provider Psychiatry & Neurology Psychiatry
DX: Z51.81 Encounter for therapeutic drug level monitoring (principal)
CPT/HCPCS: 36415; 85025; 85048

== ENCOUNTER 2020-06-29 08:23 | Outpatient (REF) | payer BC, SELFPAY ==
[2020-06-29 11:15] LABS: MANUAL DIFF FLAG NO
[2020-06-29 11:26] LABS: Basophils Absolute Auto 0.1 X10*3/uL (0.0-0.2); Basophils Percent Auto 0.9 % (0-2); Eosinophils Absolute Auto 0.2 X10*3/uL (0.0-0.4); Eosinophils Percent Auto 2.8 % (0-4); Hematocrit 40.6 % (37-47); Hemoglobin 12.8 g/dl (12.0-16.0); Imm Gran Abs Auto 0.02 X10*3/uL (0.00-0.03); Imm Gran Pct Auto 0.3 % (0.0-0.4); Lymphocytes Absolute Auto 3.1 X10*3/uL (1.2-4.9); Lymphocytes Percent Auto 48.3 % (20-40); Mean Corpuscular HGB Conc 31.5 g/dl (31.0-35.0); Mean Corpuscular Volume 92.1 fL (80-98); Mean Platelet Volume 11.5 fL (9.4-12.3); Monocytes Absolute Auto 0.4 X10*3/uL (0.1-1.2); Neutrophils Absolute Auto 2.6 X10*3/uL (2.0-8.3); Neutrophils Percent Auto 40.7 % (45-73); Platelet Count 269 X10*3/uL (160-400); Red Blood Count 4.41 X10*6/uL (4.20-5.50); Red Cell Distribution Width 14.1 % (11.0-16.0); White Blood Count 6.3 X10*3/uL (4.8-10.8)
== END 2020-06-29 08:24 | disposition home or self-care (01) ==
LOC: HO.HMGCLR 08:23
PROVIDERS: PCP Internal Medicine; Visit Provider Psychiatry & Neurology Psychiatry
DX: Z51.81 Encounter for therapeutic drug level monitoring (principal); Z79.899 Other long term (current) drug therapy
CPT/HCPCS: 36415; 85025

== ENCOUNTER 2020-07-07 13:17 | Outpatient (REF) | payer BC, SELFPAY ==
[2020-07-07 15:07] LABS: MANUAL DIFF FLAG NO
[2020-07-07 15:10] LABS: Basophils Absolute Auto 0.1 X10*3/uL (0.0-0.2); Basophils Percent Auto 0.8 % (0-2); Eosinophils Absolute Auto 0.2 X10*3/uL (0.0-0.4); Eosinophils Percent Auto 2.9 % (0-4); Hemoglobin 12.8 g/dl (12.0-16.0); Imm Gran Abs Auto 0.02 X10*3/uL (0.00-0.03); Imm Gran Pct Auto 0.3 % (0.0-0.4); Lymphocytes Absolute Auto 3.1 X10*3/uL (1.2-4.9); Mean Corpuscular HGB Conc 32.8 g/dl (31.0-35.0); Mean Corpuscular Volume 91.3 fL (80-98); Mean Platelet Volume 11.3 fL (9.4-12.3); Monocytes Absolute Auto 0.4 X10*3/uL (0.1-1.2); Monocytes Percent Auto 6.4 % (2-11); Neut%MD 42.6 %; Neutrophils Absolute Auto 2.8 X10*3/uL (2.0-8.3); Neutrophils Percent Auto 42.6 % (45-73); Platelet Count 257 X10*3/uL (160-400); Red Blood Count 4.27 X10*6/uL (4.20-5.50); Red Cell Distribution Width 14.2 % (11.0-16.0); WBCANC 6.6 X10*3/uL; White Blood Count 6.6 X10*3/uL (4.8-10.8)
== END 2020-07-07 13:18 | disposition home or self-care (01) ==
LOC: HO.HMGCLR 13:17
PROVIDERS: PCP Internal Medicine; Visit Provider Psychiatry & Neurology Psychiatry
DX: Z51.81 Encounter for therapeutic drug level monitoring (principal); Z79.899 Other long term (current) drug therapy
CPT/HCPCS: 36415; 85025; 85048

== ENCOUNTER 2020-07-13 10:10 | Outpatient (REF) | payer BC, SELFPAY ==
[2020-07-13 11:34] LABS: MANUAL DIFF FLAG NO
[2020-07-13 11:54] LABS: Basophils Percent Auto 0.6 % (0-2); Eosinophils Absolute Auto 0.2 X10*3/uL (0.0-0.4); Eosinophils Percent Auto 2.6 % (0-4); Hematocrit 38.3 % (37-47); Hemoglobin 12.5 g/dl (12.0-16.0); Imm Gran Abs Auto 0.03 X10*3/uL (0.00-0.03); Imm Gran Pct Auto 0.4 % (0.0-0.4); Lymphocytes Absolute Auto 2.9 X10*3/uL (1.2-4.9); Lymphocytes Percent Auto 42.3 % (20-40); Mean Corpuscular HGB Conc 32.6 g/dl (31.0-35.0); Mean Corpuscular Hemoglobin 29.6 pg (27.0-33.0); Mean Corpuscular Volume 90.8 fL (80-98); Mean Platelet Volume 11.3 fL (9.4-12.3); Monocytes Absolute Auto 0.4 X10*3/uL (0.1-1.2); Monocytes Percent Auto 5.4 % (2-11); Neut%MD 48.7 %; Neutrophils Absolute Auto 3.3 X10*3/uL (2.0-8.3); Neutrophils Percent Auto 48.7 % (45-73); Platelet Count 246 X10*3/uL (160-400); Red Blood Count 4.22 X10*6/uL (4.20-5.50); Red Cell Distribution Width 14.5 % (11.0-16.0); WBCANC 6.8 X10*3/uL; White Blood Count 6.8 X10*3/uL (4.8-10.8)
== END 2020-07-13 10:11 | disposition home or self-care (01) ==
LOC: HO.HMGCLR 10:10
PROVIDERS: PCP Internal Medicine; Visit Provider Psychiatry & Neurology Psychiatry
DX: Z79.899 Other long term (current) drug therapy (principal)
CPT/HCPCS: 36415; 85025; 85048

== ENCOUNTER 2020-07-21 13:26 | Outpatient (REF) | payer BC, SELFPAY ==
[2020-07-21 15:09] LABS: MANUAL DIFF FLAG NO
[2020-07-21 15:12] LABS: Basophils Percent Auto 0.6 % (0-2); Eosinophils Absolute Auto 0.2 X10*3/uL (0.0-0.4); Eosinophils Percent Auto 3.3 % (0-4); Hematocrit 39.2 % (37-47); Hemoglobin 12.6 g/dl (12.0-16.0); Imm Gran Abs Auto 0.02 X10*3/uL (0.00-0.03); Imm Gran Pct Auto 0.3 % (0.0-0.4); Lymphocytes Absolute Auto 2.9 X10*3/uL (1.2-4.9); Lymphocytes Percent Auto 43.8 % (20-40); Mean Corpuscular HGB Conc 32.1 g/dl (31.0-35.0); Mean Corpuscular Hemoglobin 29.3 pg (27.0-33.0); Mean Corpuscular Volume 91.2 fL (80-98); Mean Platelet Volume 11.4 fL (9.4-12.3); Monocytes Absolute Auto 0.5 X10*3/uL (0.1-1.2); Monocytes Percent Auto 7.2 % (2-11); Neutrophils Percent Auto 44.8 % (45-73); Platelet Count 247 X10*3/uL (160-400); Red Cell Distribution Width 14.8 % (11.0-16.0); White Blood Count 6.7 X10*3/uL (4.8-10.8)
== END 2020-07-21 13:27 | disposition home or self-care (01) ==
LOC: HO.HMGCLR 13:26
PROVIDERS: Visit Provider Psychiatry & Neurology Psychiatry
DX: Z79.899 Other long term (current) drug therapy (principal)
CPT/HCPCS: 36415; 85025

== ENCOUNTER 2020-07-27 08:17 | Outpatient (REF) | payer BC, SELFPAY ==
[2020-07-27 11:08] LABS: MANUAL DIFF FLAG NO
[2020-07-27 11:31] LABS: Basophils Absolute Auto 0.1 X10*3/uL (0.0-0.2); Basophils Percent Auto 1.1 % (0-2); Eosinophils Absolute Auto 0.3 X10*3/uL (0.0-0.4); Eosinophils Percent Auto 3.5 % (0-4); Hematocrit 41.8 % (37-47); Hemoglobin 13.4 g/dl (12.0-16.0); Imm Gran Abs Auto 0.02 X10*3/uL (0.00-0.03); Imm Gran Pct Auto 0.3 % (0.0-0.4); Lymphocytes Absolute Auto 3.6 X10*3/uL (1.2-4.9); Mean Corpuscular HGB Conc 32.1 g/dl (31.0-35.0); Mean Corpuscular Hemoglobin 29.4 pg (27.0-33.0); Mean Corpuscular Volume 91.7 fL (80-98); Monocytes Absolute Auto 0.5 X10*3/uL (0.1-1.2); Monocytes Percent Auto 6.4 % (2-11); Neutrophils Absolute Auto 3.1 X10*3/uL (2.0-8.3); Neutrophils Percent Auto 40.7 % (45-73); Platelet Count 275 X10*3/uL (160-400); Red Blood Count 4.56 X10*6/uL (4.20-5.50); Red Cell Distribution Width 14.7 % (11.0-16.0); White Blood Count 7.5 X10*3/uL (4.8-10.8)
== END 2020-07-27 08:18 | disposition home or self-care (01) ==
LOC: HO.HMGCLR 08:17
PROVIDERS: PCP Internal Medicine; Visit Provider Psychiatry & Neurology Psychiatry
DX: Z79.899 Other long term (current) drug therapy (principal)
CPT/HCPCS: 36415; 85025

== ENCOUNTER 2020-08-03 10:51 | Outpatient (REF) | payer BC, SELFPAY ==
[2020-08-03 14:00] LABS: MANUAL DIFF FLAG NO
[2020-08-03 14:08] LABS: Basophils Absolute Auto 0.1 X10*3/uL (0.0-0.2); Eosinophils Absolute Auto 0.2 X10*3/uL (0.0-0.4); Eosinophils Percent Auto 2.7 % (0-4); Hematocrit 41.6 % (37-47); Hemoglobin 13.3 g/dl (12.0-16.0); Imm Gran Abs Auto 0.02 X10*3/uL (0.00-0.03); Imm Gran Pct Auto 0.3 % (0.0-0.4); Lymphocytes Absolute Auto 3.4 X10*3/uL (1.2-4.9); Lymphocytes Percent Auto 49.4 % (20-40); Mean Corpuscular Hemoglobin 29.1 pg (27.0-33.0); Mean Platelet Volume 11.3 fL (9.4-12.3); Monocytes Absolute Auto 0.4 X10*3/uL (0.1-1.2); Monocytes Percent Auto 6.3 % (2-11); Neutrophils Absolute Auto 2.8 X10*3/uL (2.0-8.3); Neutrophils Percent Auto 40.3 % (45-73); Platelet Count 320 X10*3/uL (160-400); Red Blood Count 4.57 X10*6/uL (4.20-5.50); Red Cell Distribution Width 14.6 % (11.0-16.0)
== END 2020-08-03 10:52 | disposition home or self-care (01) ==
LOC: HO.HMGCLR 10:51
PROVIDERS: PCP Internal Medicine; Visit Provider Psychiatry & Neurology Psychiatry
DX: Z79.899 Other long term (current) drug therapy (principal)
CPT/HCPCS: 36415; 85025; 85048

== ENCOUNTER 2020-08-10 10:36 | Outpatient (REF) | payer BC, SELFPAY ==
[2020-08-10 14:00] LABS: MANUAL DIFF FLAG NO
[2020-08-10 14:12] LABS: Basophils Absolute Auto 0.1 X10*3/uL (0.0-0.2); Basophils Percent Auto 1.1 % (0-2); Eosinophils Absolute Auto 0.2 X10*3/uL (0.0-0.4); Eosinophils Percent Auto 3.4 % (0-4); Hematocrit 41.4 % (37-47); Hemoglobin 13.4 g/dl (12.0-16.0); Imm Gran Abs Auto 0.03 X10*3/uL (0.00-0.03); Imm Gran Pct Auto 0.4 % (0.0-0.4); Lymphocytes Absolute Auto 3.4 X10*3/uL (1.2-4.9); Lymphocytes Percent Auto 49.1 % (20-40); Mean Corpuscular HGB Conc 32.4 g/dl (31.0-35.0); Mean Corpuscular Hemoglobin 29.6 pg (27.0-33.0); Mean Corpuscular Volume 91.6 fL (80-98); Mean Platelet Volume 11.3 fL (9.4-12.3); Monocytes Absolute Auto 0.5 X10*3/uL (0.1-1.2); Monocytes Percent Auto 6.4 % (2-11); Neutrophils Absolute Auto 2.8 X10*3/uL (2.0-8.3); Neutrophils Percent Auto 39.6 % (45-73); Platelet Count 280 X10*3/uL (160-400); Red Blood Count 4.52 X10*6/uL (4.20-5.50); Red Cell Distribution Width 14.6 % (11.0-16.0)
== END 2020-08-10 10:37 | disposition home or self-care (01) ==
LOC: HO.HMGCLR 10:36
PROVIDERS: PCP Internal Medicine; Visit Provider Psychiatry & Neurology Psychiatry
DX: Z51.81 Encounter for therapeutic drug level monitoring (principal); Z79.899 Other long term (current) drug therapy
CPT/HCPCS: 36415; 85025

== ENCOUNTER 2020-08-17 14:50 | Outpatient (REF) | payer BC, SELFPAY ==
[2020-08-17 16:33] LABS: MANUAL DIFF FLAG NO
[2020-08-17 16:36] LABS: Basophils Absolute Auto 0.1 X10*3/uL (0.0-0.2); Basophils Percent Auto 0.8 % (0-2); Eosinophils Absolute Auto 0.2 X10*3/uL (0.0-0.4); Eosinophils Percent Auto 2.8 % (0-4); Hematocrit 42.1 % (37-47); Hemoglobin 13.4 g/dl (12.0-16.0); Imm Gran Abs Auto 0.04 X10*3/uL (0.00-0.03); Imm Gran Pct Auto 0.6 % (0.0-0.4); Lymphocytes Absolute Auto 2.3 X10*3/uL (1.2-4.9); Lymphocytes Percent Auto 36.3 % (20-40); Mean Corpuscular HGB Conc 31.8 g/dl (31.0-35.0); Mean Corpuscular Hemoglobin 29.1 pg (27.0-33.0); Mean Corpuscular Volume 91.5 fL (80-98); Mean Platelet Volume 10.9 fL (9.4-12.3); Monocytes Absolute Auto 0.4 X10*3/uL (0.1-1.2); Monocytes Percent Auto 5.9 % (2-11); Neutrophils Absolute Auto 3.4 X10*3/uL (2.0-8.3); Neutrophils Percent Auto 53.6 % (45-73); Platelet Count 254 X10*3/uL (160-400); Red Cell Distribution Width 14.6 % (11.0-16.0); White Blood Count 6.4 X10*3/uL (4.8-10.8)
== END 2020-08-17 14:51 | disposition home or self-care (01) ==
LOC: HO.HMGCLR 14:50
PROVIDERS: Visit Provider Psychiatry & Neurology Psychiatry
DX: Z51.81 Encounter for therapeutic drug level monitoring (principal); Z79.899 Other long term (current) drug therapy
CPT/HCPCS: 36415; 85025

== ENCOUNTER 2020-08-24 11:12 | Outpatient (REF) | payer BC, SELFPAY ==
[2020-08-24 13:56] LABS: MANUAL DIFF FLAG NO
[2020-08-24 14:07] LABS: Basophils Absolute Auto 0.1 X10*3/uL (0.0-0.2); Eosinophils Absolute Auto 0.2 X10*3/uL (0.0-0.4); Eosinophils Percent Auto 2.9 % (0-4); Hematocrit 40.6 % (37-47); Hemoglobin 13.1 g/dl (12.0-16.0); Imm Gran Abs Auto 0.01 X10*3/uL (0.00-0.03); Imm Gran Pct Auto 0.2 % (0.0-0.4); Lymphocytes Absolute Auto 2.8 X10*3/uL (1.2-4.9); Lymphocytes Percent Auto 47.5 % (20-40); Mean Corpuscular HGB Conc 32.3 g/dl (31.0-35.0); Mean Corpuscular Hemoglobin 29.4 pg (27.0-33.0); Mean Platelet Volume 11.1 fL (9.4-12.3); Monocytes Absolute Auto 0.4 X10*3/uL (0.1-1.2); Monocytes Percent Auto 6.7 % (2-11); Neut%MD 41.7 %; Neutrophils Absolute Auto 2.5 X10*3/uL (2.0-8.3); Neutrophils Percent Auto 41.7 % (45-73); Platelet Count 259 X10*3/uL (160-400); Red Blood Count 4.46 X10*6/uL (4.20-5.50); Red Cell Distribution Width 14.6 % (11.0-16.0); WBCANC 5.9 X10*3/uL; White Blood Count 5.9 X10*3/uL (4.8-10.8)
== END 2020-08-24 11:13 | disposition home or self-care (01) ==
LOC: HO.HMGCLR 11:12
PROVIDERS: Visit Provider Psychiatry & Neurology Psychiatry
DX: Z51.81 Encounter for therapeutic drug level monitoring (principal); Z79.899 Other long term (current) drug therapy
CPT/HCPCS: 36415; 85025

== ENCOUNTER 2020-08-31 14:08 | Outpatient (REF) | payer BC, SELFPAY ==
[2020-08-31 16:52] LABS: MANUAL DIFF FLAG NO
[2020-08-31 16:55] LABS: Basophils Absolute Auto 0.1 X10*3/uL (0.0-0.2); Basophils Percent Auto 0.8 % (0-2); Eosinophils Absolute Auto 0.2 X10*3/uL (0.0-0.4); Eosinophils Percent Auto 2.5 % (0-4); Hematocrit 40.5 % (37-47); Hemoglobin 13.4 g/dl (12.0-16.0); Imm Gran Abs Auto 0.01 X10*3/uL (0.00-0.03); Imm Gran Pct Auto 0.2 % (0.0-0.4); Lymphocytes Absolute Auto 2.7 X10*3/uL (1.2-4.9); Mean Corpuscular HGB Conc 33.1 g/dl (31.0-35.0); Mean Corpuscular Hemoglobin 29.5 pg (27.0-33.0); Mean Corpuscular Volume 89.2 fL (80-98); Mean Platelet Volume 11.4 fL (9.4-12.3); Monocytes Absolute Auto 0.5 X10*3/uL (0.1-1.2); Monocytes Percent Auto 7.6 % (2-11); Neut%MD 46.9 %; Neutrophils Percent Auto 46.9 % (45-73); Platelet Count 277 X10*3/uL (160-400); Red Blood Count 4.54 X10*6/uL (4.20-5.50); Red Cell Distribution Width 14.4 % (11.0-16.0); WBCANC 6.3 X10*3/uL; White Blood Count 6.3 X10*3/uL (4.8-10.8)
== END 2020-08-31 14:09 | disposition home or self-care (01) ==
LOC: HO.HMGCLR 14:08
PROVIDERS: PCP Internal Medicine; Visit Provider Psychiatry & Neurology Psychiatry
DX: Z51.81 Encounter for therapeutic drug level monitoring (principal)
CPT/HCPCS: 36415; 85025

== ENCOUNTER 2020-09-08 14:13 | Outpatient (REF) | payer BC, SELFPAY ==
[2020-09-08 16:32] LABS: MANUAL DIFF FLAG NO
[2020-09-08 16:41] LABS: Basophils Absolute Auto 0.1 X10*3/uL (0.0-0.2); Basophils Percent Auto 1.1 % (0-2); Eosinophils Absolute Auto 0.2 X10*3/uL (0.0-0.4); Eosinophils Percent Auto 2.8 % (0-4); Hematocrit 40.9 % (37-47); Hemoglobin 13.5 g/dl (12.0-16.0); Imm Gran Abs Auto 0.01 X10*3/uL (0.00-0.03); Imm Gran Pct Auto 0.2 % (0.0-0.4); Lymphocytes Absolute Auto 2.7 X10*3/uL (1.2-4.9); Lymphocytes Percent Auto 41.3 % (20-40); Mean Corpuscular Hemoglobin 29.6 pg (27.0-33.0); Mean Corpuscular Volume 89.7 fL (80-98); Mean Platelet Volume 11.2 fL (9.4-12.3); Monocytes Absolute Auto 0.4 X10*3/uL (0.1-1.2); Monocytes Percent Auto 6.7 % (2-11); Neutrophils Absolute Auto 3.1 X10*3/uL (2.0-8.3); Neutrophils Percent Auto 47.9 % (45-73); Platelet Count 270 X10*3/uL (160-400); Red Blood Count 4.56 X10*6/uL (4.20-5.50); Red Cell Distribution Width 14.4 % (11.0-16.0); White Blood Count 6.5 X10*3/uL (4.8-10.8)
== END 2020-09-08 14:14 | disposition home or self-care (01) ==
LOC: HO.HMGCLR 14:13
PROVIDERS: PCP Internal Medicine; Visit Provider Psychiatry & Neurology Psychiatry
DX: Z51.81 Encounter for therapeutic drug level monitoring (principal)
CPT/HCPCS: 36415; 85025

== ENCOUNTER 2020-09-15 14:25 | Outpatient (REF) | payer BC, SELFPAY ==
[2020-09-15 15:26] LABS: MANUAL DIFF FLAG NO
[2020-09-15 15:29] LABS: Basophils Absolute Auto 0.1 X10*3/uL (0.0-0.2); Basophils Percent Auto 0.7 % (0-2); Eosinophils Absolute Auto 0.2 X10*3/uL (0.0-0.4); Eosinophils Percent Auto 2.8 % (0-4); Hematocrit 40.7 % (37-47); Hemoglobin 13.1 g/dl (12.0-16.0); Imm Gran Abs Auto 0.03 X10*3/uL (0.00-0.03); Imm Gran Pct Auto 0.4 % (0.0-0.4); Lymphocytes Absolute Auto 2.9 X10*3/uL (1.2-4.9); Lymphocytes Percent Auto 38.3 % (20-40); Mean Corpuscular HGB Conc 32.2 g/dl (31.0-35.0); Mean Corpuscular Hemoglobin 28.9 pg (27.0-33.0); Mean Corpuscular Volume 89.6 fL (80-98); Mean Platelet Volume 11.3 fL (9.4-12.3); Monocytes Absolute Auto 0.5 X10*3/uL (0.1-1.2); Monocytes Percent Auto 7.1 % (2-11); Neut%MD 50.7 %; Neutrophils Absolute Auto 3.9 X10*3/uL (2.0-8.3); Neutrophils Percent Auto 50.7 % (45-73); Platelet Count 272 X10*3/uL (160-400); Red Blood Count 4.54 X10*6/uL (4.20-5.50); Red Cell Distribution Width 14.2 % (11.0-16.0); WBCANC 7.6 X10*3/uL; White Blood Count 7.6 X10*3/uL (4.8-10.8)
== END 2020-09-15 14:26 | disposition home or self-care (01) ==
LOC: HO.HMGCLDS 14:25
PROVIDERS: PCP Internal Medicine; Visit Provider Psychiatry & Neurology Psychiatry
DX: Z51.81 Encounter for therapeutic drug level monitoring (principal); Z79.899 Other long term (current) drug therapy
CPT/HCPCS: 36415; 85025

== ENCOUNTER 2020-09-22 14:23 | Outpatient (REF) | payer BC, SELFPAY ==
[2020-09-22 15:40] LABS: MANUAL DIFF FLAG NO
[2020-09-22 15:43] LABS: Basophils Absolute Auto 0.1 X10*3/uL (0.0-0.2); Eosinophils Absolute Auto 0.2 X10*3/uL (0.0-0.4); Hematocrit 37.3 % (37-47); Hemoglobin 12.2 g/dl (12.0-16.0); Imm Gran Abs Auto 0.03 X10*3/uL (0.00-0.03); Imm Gran Pct Auto 0.4 % (0.0-0.4); Lymphocytes Percent Auto 42.8 % (20-40); Mean Corpuscular HGB Conc 32.7 g/dl (31.0-35.0); Mean Corpuscular Hemoglobin 29.6 pg (27.0-33.0); Mean Corpuscular Volume 90.5 fL (80-98); Monocytes Absolute Auto 0.5 X10*3/uL (0.1-1.2); Monocytes Percent Auto 6.9 % (2-11); NRBC Pct Auto 0.4 /100WBC (0.0-0.2); Neut%MD 45.9 %; Neutrophils Absolute Auto 3.2 X10*3/uL (2.0-8.3); Neutrophils Percent Auto 45.9 % (45-73); Platelet Count 278 X10*3/uL (160-400); Red Blood Count 4.12 X10*6/uL (4.20-5.50); Red Cell Distribution Width 15.1 % (11.0-16.0); WBCANC 7.1 X10*3/uL; White Blood Count 7.1 X10*3/uL (4.8-10.8)
== END 2020-09-22 14:24 | disposition home or self-care (01) ==
LOC: HO.HMGCLR 14:23
PROVIDERS: PCP Internal Medicine; Visit Provider Psychiatry & Neurology Psychiatry
DX: Z51.81 Encounter for therapeutic drug level monitoring (principal); Z79.899 Other long term (current) drug therapy
CPT/HCPCS: 36415; 85025

== ENCOUNTER 2020-09-28 14:14 | Outpatient (REF) | payer BC, SELFPAY ==
[2020-09-28 16:22] LABS: MANUAL DIFF FLAG NO
[2020-09-28 16:25] LABS: Basophils Percent Auto 0.6 % (0-2); Eosinophils Absolute Auto 0.2 X10*3/uL (0.0-0.4); Eosinophils Percent Auto 2.4 % (0-4); Hematocrit 38.3 % (37-47); Hemoglobin 12.5 g/dl (12.0-16.0); Imm Gran Abs Auto 0.02 X10*3/uL (0.00-0.03); Imm Gran Pct Auto 0.3 % (0.0-0.4); Lymphocytes Absolute Auto 2.6 X10*3/uL (1.2-4.9); Lymphocytes Percent Auto 37.8 % (20-40); Mean Corpuscular HGB Conc 32.6 g/dl (31.0-35.0); Mean Corpuscular Hemoglobin 29.6 pg (27.0-33.0); Mean Corpuscular Volume 90.5 fL (80-98); Monocytes Absolute Auto 0.5 X10*3/uL (0.1-1.2); Monocytes Percent Auto 6.8 % (2-11); NRBC Pct Auto 0.3 /100WBC (0.0-0.2); Neut%MD 52.1 %; Neutrophils Absolute Auto 3.5 X10*3/uL (2.0-8.3); Neutrophils Percent Auto 52.1 % (45-73); Platelet Count 280 X10*3/uL (160-400); Red Blood Count 4.23 X10*6/uL (4.20-5.50); Red Cell Distribution Width 15.5 % (11.0-16.0); WBCANC 6.8 X10*3/uL; White Blood Count 6.8 X10*3/uL (4.8-10.8)
== END 2020-09-28 14:15 | disposition home or self-care (01) ==
LOC: HO.HMGCLR 14:14
PROVIDERS: PCP Internal Medicine; Visit Provider Psychiatry & Neurology Psychiatry
DX: Z51.81 Encounter for therapeutic drug level monitoring (principal)
CPT/HCPCS: 36415; 85025

== ENCOUNTER 2020-10-06 14:17 | Outpatient (REF) | payer BC, SELFPAY ==
[2020-10-06 15:22] LABS: MANUAL DIFF FLAG NO
[2020-10-06 15:24] LABS: Basophils Absolute Auto 0.1 X10*3/uL (0.0-0.2); Basophils Percent Auto 0.8 % (0-2); Eosinophils Absolute Auto 0.2 X10*3/uL (0.0-0.4); Eosinophils Percent Auto 3.3 % (0-4); Hematocrit 39.1 % (37-47); Hemoglobin 12.7 g/dl (12.0-16.0); Imm Gran Abs Auto 0.02 X10*3/uL (0.00-0.03); Imm Gran Pct Auto 0.3 % (0.0-0.4); Lymphocytes Absolute Auto 2.9 X10*3/uL (1.2-4.9); Lymphocytes Percent Auto 47.8 % (20-40); Mean Corpuscular HGB Conc 32.5 g/dl (31.0-35.0); Mean Corpuscular Hemoglobin 29.5 pg (27.0-33.0); Mean Corpuscular Volume 90.7 fL (80-98); Mean Platelet Volume 11.2 fL (9.4-12.3); Monocytes Absolute Auto 0.4 X10*3/uL (0.1-1.2); Monocytes Percent Auto 6.3 % (2-11); Neutrophils Absolute Auto 2.5 X10*3/uL (2.0-8.3); Neutrophils Percent Auto 41.5 % (45-73); Platelet Count 261 X10*3/uL (160-400); Red Blood Count 4.31 X10*6/uL (4.20-5.50); Red Cell Distribution Width 14.9 % (11.0-16.0)
== END 2020-10-06 14:18 | disposition home or self-care (01) ==
LOC: HO.HMGCLR 14:17
PROVIDERS: PCP Internal Medicine; Visit Provider Psychiatry & Neurology Psychiatry
DX: Z51.81 Encounter for therapeutic drug level monitoring (principal)
CPT/HCPCS: 36415; 85025

== ENCOUNTER 2020-10-12 14:14 | Outpatient (REF) | payer BC, SELFPAY ==
[2020-10-12 16:21] LABS: MANUAL DIFF FLAG NO
[2020-10-12 16:31] LABS: Basophils Absolute Auto 0.1 X10*3/uL (0.0-0.2); Basophils Percent Auto 1.2 % (0-2); Eosinophils Absolute Auto 0.2 X10*3/uL (0.0-0.4); Eosinophils Percent Auto 3.5 % (0-4); Hematocrit 40.9 % (37-47); Hemoglobin 13.2 g/dl (12.0-16.0); Imm Gran Abs Auto 0.02 X10*3/uL (0.00-0.03); Imm Gran Pct Auto 0.3 % (0.0-0.4); Lymphocytes Absolute Auto 2.7 X10*3/uL (1.2-4.9); Lymphocytes Percent Auto 44.6 % (20-40); Mean Corpuscular HGB Conc 32.3 g/dl (31.0-35.0); Mean Corpuscular Hemoglobin 29.2 pg (27.0-33.0); Mean Corpuscular Volume 90.5 fL (80-98); Mean Platelet Volume 11.5 fL (9.4-12.3); Monocytes Absolute Auto 0.4 X10*3/uL (0.1-1.2); Monocytes Percent Auto 6.4 % (2-11); Neutrophils Absolute Auto 2.7 X10*3/uL (2.0-8.3); Platelet Count 275 X10*3/uL (160-400); Red Blood Count 4.52 X10*6/uL (4.20-5.50); Red Cell Distribution Width 14.7 % (11.0-16.0); White Blood Count 6.1 X10*3/uL (4.8-10.8)
== END 2020-10-12 14:15 | disposition home or self-care (01) ==
LOC: HO.HMGCLR 14:14
PROVIDERS: PCP Internal Medicine; Visit Provider Psychiatry & Neurology Psychiatry
DX: Z51.81 Encounter for therapeutic drug level monitoring (principal); Z79.899 Other long term (current) drug therapy
CPT/HCPCS: 36415; 85025

== ENCOUNTER 2020-10-19 08:34 | Outpatient (REF) | payer BC, SELFPAY ==
[2020-10-19 11:19] LABS: MANUAL DIFF FLAG NO
[2020-10-19 11:26] LABS: Basophils Absolute Auto 0.1 X10*3/uL (0.0-0.2); Basophils Percent Auto 0.8 % (0-2); Eosinophils Absolute Auto 0.2 X10*3/uL (0.0-0.4); Eosinophils Percent Auto 2.9 % (0-4); Hematocrit 41.7 % (37-47); Hemoglobin 13.5 g/dl (12.0-16.0); Imm Gran Abs Auto 0.03 X10*3/uL (0.00-0.03); Imm Gran Pct Auto 0.4 % (0.0-0.4); Lymphocytes Absolute Auto 3.5 X10*3/uL (1.2-4.9); Lymphocytes Percent Auto 48.1 % (20-40); Mean Corpuscular HGB Conc 32.4 g/dl (31.0-35.0); Mean Corpuscular Hemoglobin 29.2 pg (27.0-33.0); Mean Corpuscular Volume 90.3 fL (80-98); Mean Platelet Volume 11.4 fL (9.4-12.3); Monocytes Absolute Auto 0.5 X10*3/uL (0.1-1.2); Monocytes Percent Auto 7.1 % (2-11); Neut%MD 40.7 %; Neutrophils Percent Auto 40.7 % (45-73); Platelet Count 281 X10*3/uL (160-400); Red Blood Count 4.62 X10*6/uL (4.20-5.50); Red Cell Distribution Width 14.6 % (11.0-16.0); WBCANC 7.3 X10*3/uL; White Blood Count 7.3 X10*3/uL (4.8-10.8)
== END 2020-10-19 08:35 | disposition home or self-care (01) ==
LOC: HO.HMGCLR 08:34
PROVIDERS: PCP Internal Medicine; Visit Provider Psychiatry & Neurology Psychiatry
DX: Z51.81 Encounter for therapeutic drug level monitoring (principal); Z79.899 Other long term (current) drug therapy
CPT/HCPCS: 36415; 85025

== ENCOUNTER 2020-10-27 14:21 | Outpatient (REF) | payer BC, SELFPAY ==
[2020-10-27 15:24] LABS: MANUAL DIFF FLAG NO
[2020-10-27 15:27] LABS: Basophils Absolute Auto 0.1 X10*3/uL (0.0-0.2); Basophils Percent Auto 0.9 % (0-2); Eosinophils Absolute Auto 0.2 X10*3/uL (0.0-0.4); Eosinophils Percent Auto 2.8 % (0-4); Hematocrit 40.7 % (37-47); Hemoglobin 13.3 g/dl (12.0-16.0); Imm Gran Abs Auto 0.01 X10*3/uL (0.00-0.03); Imm Gran Pct Auto 0.2 % (0.0-0.4); Lymphocytes Absolute Auto 2.9 X10*3/uL (1.2-4.9); Lymphocytes Percent Auto 45.2 % (20-40); Mean Corpuscular HGB Conc 32.7 g/dl (31.0-35.0); Mean Corpuscular Hemoglobin 29.3 pg (27.0-33.0); Mean Corpuscular Volume 89.6 fL (80-98); Mean Platelet Volume 11.4 fL (9.4-12.3); Monocytes Absolute Auto 0.4 X10*3/uL (0.1-1.2); Monocytes Percent Auto 6.6 % (2-11); Neutrophils Absolute Auto 2.8 X10*3/uL (2.0-8.3); Neutrophils Percent Auto 44.3 % (45-73); Platelet Count 271 X10*3/uL (160-400); Red Blood Count 4.54 X10*6/uL (4.20-5.50); Red Cell Distribution Width 14.8 % (11.0-16.0); White Blood Count 6.3 X10*3/uL (4.8-10.8)
== END 2020-10-27 14:22 | disposition home or self-care (01) ==
LOC: HO.HMGCLR 14:21
PROVIDERS: PCP Internal Medicine; Visit Provider Psychiatry & Neurology Psychiatry
DX: Z51.81 Encounter for therapeutic drug level monitoring (principal)
CPT/HCPCS: 36415; 85025

== ENCOUNTER 2020-11-03 14:18 | Outpatient (REF) | payer BC, SELFPAY ==
[2020-11-03 15:28] LABS: MANUAL DIFF FLAG NO
[2020-11-03 15:29] LABS: Basophils Absolute Auto 0.1 X10*3/uL (0.0-0.2); Basophils Percent Auto 0.8 % (0-2); Eosinophils Absolute Auto 0.2 X10*3/uL (0.0-0.4); Eosinophils Percent Auto 2.8 % (0-4); Hematocrit 40.3 % (37-47); Hemoglobin 13.3 g/dl (12.0-16.0); Imm Gran Abs Auto 0.02 X10*3/uL (0.00-0.03); Imm Gran Pct Auto 0.3 % (0.0-0.4); Lymphocytes Absolute Auto 2.8 X10*3/uL (1.2-4.9); Lymphocytes Percent Auto 45.2 % (20-40); Mean Corpuscular Hemoglobin 29.8 pg (27.0-33.0); Mean Corpuscular Volume 90.2 fL (80-98); Mean Platelet Volume 11.1 fL (9.4-12.3); Monocytes Absolute Auto 0.5 X10*3/uL (0.1-1.2); Monocytes Percent Auto 7.8 % (2-11); Neutrophils Absolute Auto 2.6 X10*3/uL (2.0-8.3); Neutrophils Percent Auto 43.1 % (45-73); Platelet Count 248 X10*3/uL (160-400); Red Blood Count 4.47 X10*6/uL (4.20-5.50); Red Cell Distribution Width 14.9 % (11.0-16.0); White Blood Count 6.1 X10*3/uL (4.8-10.8)
== END 2020-11-03 14:19 | disposition home or self-care (01) ==
LOC: HO.HMGCLR 14:18
PROVIDERS: PCP Internal Medicine; Visit Provider Psychiatry & Neurology Psychiatry
DX: Z51.81 Encounter for therapeutic drug level monitoring (principal); Z79.899 Other long term (current) drug therapy
CPT/HCPCS: 36415; 85025

== ENCOUNTER 2020-11-10 14:08 | Outpatient (REF) | payer BC, SELFPAY ==
[2020-11-10 16:04] LABS: MANUAL DIFF FLAG NO
[2020-11-10 16:23] LABS: Basophils Percent Auto 0.6 % (0-2); Eosinophils Absolute Auto 0.2 X10*3/uL (0.0-0.4); Eosinophils Percent Auto 2.8 % (0-4); Hematocrit 40.4 % (37-47); Hemoglobin 13.4 g/dl (12.0-16.0); Imm Gran Abs Auto 0.02 X10*3/uL (0.00-0.03); Imm Gran Pct Auto 0.3 % (0.0-0.4); Lymphocytes Absolute Auto 3.1 X10*3/uL (1.2-4.9); Lymphocytes Percent Auto 47.5 % (20-40); Mean Corpuscular HGB Conc 33.2 g/dl (31.0-35.0); Mean Corpuscular Hemoglobin 29.5 pg (27.0-33.0); Mean Platelet Volume 11.4 fL (9.4-12.3); Monocytes Absolute Auto 0.4 X10*3/uL (0.1-1.2); Monocytes Percent Auto 6.5 % (2-11); Neut%MD 42.3 %; Neutrophils Absolute Auto 2.8 X10*3/uL (2.0-8.3); Neutrophils Percent Auto 42.3 % (45-73); Platelet Count 262 X10*3/uL (160-400); Red Blood Count 4.54 X10*6/uL (4.20-5.50); Red Cell Distribution Width 14.6 % (11.0-16.0); WBCANC 6.5 X10*3/uL; White Blood Count 6.5 X10*3/uL (4.8-10.8)
== END 2020-11-10 14:09 | disposition home or self-care (01) ==
LOC: HO.HMGCLDS 14:08
PROVIDERS: PCP Internal Medicine; Visit Provider Psychiatry & Neurology Psychiatry
DX: Z51.81 Encounter for therapeutic drug level monitoring (principal); Z79.899 Other long term (current) drug therapy
CPT/HCPCS: 36415; 85025

== ENCOUNTER 2020-11-17 14:12 | Outpatient (REF) | payer BC, SELFPAY ==
[2020-11-17 15:42] LABS: MANUAL DIFF FLAG NO
[2020-11-17 15:46] LABS: Basophils Percent Auto 0.6 % (0-2); Eosinophils Absolute Auto 0.2 X10*3/uL (0.0-0.4); Eosinophils Percent Auto 2.8 % (0-4); Hematocrit 40.4 % (37-47); Hemoglobin 13.3 g/dl (12.0-16.0); Imm Gran Abs Auto 0.02 X10*3/uL (0.00-0.03); Imm Gran Pct Auto 0.3 % (0.0-0.4); Lymphocytes Absolute Auto 3.1 X10*3/uL (1.2-4.9); Lymphocytes Percent Auto 46.5 % (20-40); Mean Corpuscular HGB Conc 32.9 g/dl (31.0-35.0); Mean Corpuscular Hemoglobin 29.2 pg (27.0-33.0); Mean Corpuscular Volume 88.6 fL (80-98); Mean Platelet Volume 11.7 fL (9.4-12.3); Monocytes Absolute Auto 0.5 X10*3/uL (0.1-1.2); Neutrophils Absolute Auto 2.9 X10*3/uL (2.0-8.3); Neutrophils Percent Auto 42.8 % (45-73); Platelet Count 266 X10*3/uL (160-400); Red Blood Count 4.56 X10*6/uL (4.20-5.50); Red Cell Distribution Width 14.7 % (11.0-16.0); White Blood Count 6.8 X10*3/uL (4.8-10.8)
== END 2020-11-17 14:13 | disposition home or self-care (01) ==
LOC: HO.HMGCLR 14:12
PROVIDERS: PCP Internal Medicine; Visit Provider Psychiatry & Neurology Psychiatry
DX: Z51.81 Encounter for therapeutic drug level monitoring (principal)
CPT/HCPCS: 36415; 85025

== ENCOUNTER 2020-11-23 08:44 | Outpatient (REF) | payer BC, SELFPAY ==
[2020-11-23 11:26] LABS: MANUAL DIFF FLAG NO
[2020-11-23 11:32] LABS: Basophils Absolute Auto 0.1 X10*3/uL (0.0-0.2); Basophils Percent Auto 0.9 % (0-2); Eosinophils Absolute Auto 0.2 X10*3/uL (0.0-0.4); Eosinophils Percent Auto 2.6 % (0-4); Hematocrit 40.3 % (37-47); Hemoglobin 13.2 g/dl (12.0-16.0); Imm Gran Abs Auto 0.02 X10*3/uL (0.00-0.03); Imm Gran Pct Auto 0.3 % (0.0-0.4); Lymphocytes Absolute Auto 3.2 X10*3/uL (1.2-4.9); Lymphocytes Percent Auto 47.6 % (20-40); Mean Corpuscular HGB Conc 32.8 g/dl (31.0-35.0); Mean Corpuscular Hemoglobin 29.3 pg (27.0-33.0); Mean Corpuscular Volume 89.6 fL (80-98); Mean Platelet Volume 11.5 fL (9.4-12.3); Monocytes Absolute Auto 0.5 X10*3/uL (0.1-1.2); Monocytes Percent Auto 6.9 % (2-11); Neut%MD 41.7 %; Neutrophils Absolute Auto 2.8 X10*3/uL (2.0-8.3); Neutrophils Percent Auto 41.7 % (45-73); Platelet Count 275 X10*3/uL (160-400); Red Cell Distribution Width 14.8 % (11.0-16.0); WBCANC 6.6 X10*3/uL; White Blood Count 6.6 X10*3/uL (4.8-10.8)
== END 2020-11-23 08:45 | disposition home or self-care (01) ==
LOC: HO.HMGCLR 08:44
PROVIDERS: PCP Internal Medicine; Visit Provider Psychiatry & Neurology Psychiatry
DX: Z51.81 Encounter for therapeutic drug level monitoring (principal); Z79.899 Other long term (current) drug therapy
CPT/HCPCS: 36415; 85025

== ENCOUNTER 2020-11-30 08:39 | Outpatient (REF) | payer BC, SELFPAY ==
[2020-11-30 11:25] LABS: MANUAL DIFF FLAG NO
[2020-11-30 11:32] LABS: Basophils Absolute Auto 0.1 X10*3/uL (0.0-0.2); Basophils Percent Auto 0.8 % (0-2); Eosinophils Absolute Auto 0.2 X10*3/uL (0.0-0.4); Eosinophils Percent Auto 2.8 % (0-4); Hematocrit 38.2 % (37-47); Hemoglobin 12.6 g/dl (12.0-16.0); Imm Gran Abs Auto 0.02 X10*3/uL (0.00-0.03); Imm Gran Pct Auto 0.3 % (0.0-0.4); Lymphocytes Percent Auto 46.7 % (20-40); Mean Corpuscular Hemoglobin 29.5 pg (27.0-33.0); Mean Corpuscular Volume 89.5 fL (80-98); Mean Platelet Volume 11.7 fL (9.4-12.3); Monocytes Absolute Auto 0.4 X10*3/uL (0.1-1.2); Monocytes Percent Auto 6.8 % (2-11); Neut%MD 42.6 %; Neutrophils Absolute Auto 2.8 X10*3/uL (2.0-8.3); Neutrophils Percent Auto 42.6 % (45-73); Platelet Count 256 X10*3/uL (160-400); Red Blood Count 4.27 X10*6/uL (4.20-5.50); Red Cell Distribution Width 14.6 % (11.0-16.0); WBCANC 6.5 X10*3/uL; White Blood Count 6.5 X10*3/uL (4.8-10.8)
== END 2020-11-30 08:40 | disposition home or self-care (01) ==
LOC: HO.HMGCLR 08:39
PROVIDERS: PCP Internal Medicine; Visit Provider Psychiatry & Neurology Psychiatry
DX: Z51.81 Encounter for therapeutic drug level monitoring (principal); Z79.899 Other long term (current) drug therapy
CPT/HCPCS: 36415; 85025

== ENCOUNTER 2020-12-07 08:44 | Outpatient (REF) | payer BC, SELFPAY ==
[2020-12-07 11:25] LABS: MANUAL DIFF FLAG NO
[2020-12-07 11:36] LABS: Basophils Absolute Auto 0.1 X10*3/uL (0.0-0.2); Basophils Percent Auto 0.7 % (0-2); Eosinophils Absolute Auto 0.2 X10*3/uL (0.0-0.4); Eosinophils Percent Auto 2.3 % (0-4); Hematocrit 39.9 % (37-47); Hemoglobin 12.8 g/dl (12.0-16.0); Imm Gran Abs Auto 0.03 X10*3/uL (0.00-0.03); Imm Gran Pct Auto 0.4 % (0.0-0.4); Lymphocytes Absolute Auto 3.2 X10*3/uL (1.2-4.9); Lymphocytes Percent Auto 42.6 % (20-40); Mean Corpuscular HGB Conc 32.1 g/dl (31.0-35.0); Mean Corpuscular Volume 90.3 fL (80-98); Mean Platelet Volume 11.8 fL (9.4-12.3); Monocytes Absolute Auto 0.5 X10*3/uL (0.1-1.2); Monocytes Percent Auto 6.4 % (2-11); Neutrophils Absolute Auto 3.6 X10*3/uL (2.0-8.3); Neutrophils Percent Auto 47.6 % (45-73); Platelet Count 244 X10*3/uL (160-400); Red Blood Count 4.42 X10*6/uL (4.20-5.50); Red Cell Distribution Width 14.9 % (11.0-16.0); White Blood Count 7.5 X10*3/uL (4.8-10.8)
== END 2020-12-07 08:45 | disposition home or self-care (01) ==
LOC: HO.HMGCLR 08:44
PROVIDERS: PCP Internal Medicine; Visit Provider Psychiatry & Neurology Psychiatry
DX: Z51.81 Encounter for therapeutic drug level monitoring (principal); Z79.899 Other long term (current) drug therapy
CPT/HCPCS: 36415; 85025

== ENCOUNTER 2020-12-15 14:10 | Outpatient (REF) | payer BC, SELFPAY ==
[2020-12-15 15:12] LABS: MANUAL DIFF FLAG NO
[2020-12-15 15:16] LABS: Basophils Absolute Auto 0.1 X10*3/uL (0.0-0.2); Basophils Percent Auto 0.7 % (0-2); Eosinophils Absolute Auto 0.2 X10*3/uL (0.0-0.4); Eosinophils Percent Auto 2.3 % (0-4); Hematocrit 41.1 % (37.0-47.0); Hemoglobin 13.6 g/dl (12.0-16.0); Imm Gran Abs Auto 0.03 X10*3/uL (0.00-0.03); Imm Gran Pct Auto 0.4 % (0.0-0.4); Lymphocytes Absolute Auto 3.1 X10*3/uL (1.2-4.9); Lymphocytes Percent Auto 40.2 % (20-40); Mean Corpuscular HGB Conc 33.1 g/dl (31.0-35.0); Mean Corpuscular Hemoglobin 29.7 pg (27.0-33.0); Mean Corpuscular Volume 89.7 fL (80.0-98.0); Mean Platelet Volume 11.4 fL (9.4-12.3); Monocytes Absolute Auto 0.6 X10*3/uL (0.1-1.2); Monocytes Percent Auto 7.3 % (2-11); Neut%MD 49.1 %; Neutrophils Absolute Auto 3.76 x10*3/uL (2.0-8.3); Neutrophils Percent Auto 49.1 % (45-73); Platelet Count 262 X10*3/uL (160-400); Red Blood Count 4.58 X10*6/uL (4.20-5.50); Red Cell Distribution Width 14.8 % (11.0-16.0); WBCANC 7.7 X10*3/uL; White Blood Count 7.7 X10*3/uL (4.8-10.8)
== END 2020-12-15 14:11 | disposition home or self-care (01) ==
LOC: HO.HMGCLR 14:10
PROVIDERS: PCP Internal Medicine; Visit Provider Psychiatry & Neurology Psychiatry
DX: Z51.81 Encounter for therapeutic drug level monitoring (principal); Z79.899 Other long term (current) drug therapy
CPT/HCPCS: 36415; 85025

== ENCOUNTER 2020-12-22 14:07 | Outpatient (REF) | payer BC, SELFPAY ==
[2020-12-22 15:26] LABS: MANUAL DIFF FLAG NO
[2020-12-22 15:27] LABS: Basophils Absolute Auto 0.1 X10*3/uL (0.0-0.2); Basophils Percent Auto 0.8 % (0-2); Eosinophils Absolute Auto 0.1 X10*3/uL (0.0-0.4); Eosinophils Percent Auto 2.2 % (0-4); Hematocrit 41.2 % (37.0-47.0); Hemoglobin 13.5 g/dl (12.0-16.0); Imm Gran Abs Auto 0.02 X10*3/uL (0.00-0.03); Imm Gran Pct Auto 0.3 % (0.0-0.4); Lymphocytes Absolute Auto 2.7 X10*3/uL (1.2-4.9); Lymphocytes Percent Auto 42.3 % (20-40); Mean Corpuscular HGB Conc 32.8 g/dl (31.0-35.0); Mean Corpuscular Hemoglobin 29.3 pg (27.0-33.0); Mean Corpuscular Volume 89.4 fL (80.0-98.0); Mean Platelet Volume 11.3 fL (9.4-12.3); Monocytes Absolute Auto 0.4 X10*3/uL (0.1-1.2); Monocytes Percent Auto 6.6 % (2-11); Neut%MD 47.8 %; Neutrophils Absolute Auto 3.1 x10*3/uL (2.0-8.3); Neutrophils Percent Auto 47.8 % (45-73); Platelet Count 282 X10*3/uL (160-400); Red Blood Count 4.61 X10*6/uL (4.20-5.50); Red Cell Distribution Width 14.4 % (11.0-16.0); WBCANC 6.4 X10*3/uL; White Blood Count 6.4 X10*3/uL (4.8-10.8)
== END 2020-12-22 14:08 | disposition home or self-care (01) ==
LOC: HO.HMGCLR 14:07
PROVIDERS: PCP Internal Medicine; Visit Provider Psychiatry & Neurology Psychiatry
DX: Z51.81 Encounter for therapeutic drug level monitoring (principal); Z79.899 Other long term (current) drug therapy
CPT/HCPCS: 36415; 85025

== ENCOUNTER 2020-12-29 12:58 | Outpatient (REF) | payer BC, SELFPAY ==
[2020-12-29 14:11] LABS: MANUAL DIFF FLAG NO
[2020-12-29 14:12] LABS: Basophils Percent Auto 0.4 % (0-2); Eosinophils Absolute Auto 0.1 X10*3/uL (0.0-0.4); Eosinophils Percent Auto 1.2 % (0-4); Hematocrit 38.8 % (37.0-47.0); Imm Gran Abs Auto 0.05 X10*3/uL (0.00-0.03); Imm Gran Pct Auto 0.5 % (0.0-0.4); Lymphocytes Absolute Auto 2.4 X10*3/uL (1.2-4.9); Lymphocytes Percent Auto 22.7 % (20-40); Mean Corpuscular HGB Conc 33.5 g/dl (31.0-35.0); Mean Corpuscular Hemoglobin 29.7 pg (27.0-33.0); Mean Corpuscular Volume 88.8 fL (80.0-98.0); Mean Platelet Volume 11.6 fL (9.4-12.3); Monocytes Absolute Auto 0.5 X10*3/uL (0.1-1.2); Monocytes Percent Auto 5.2 % (2-11); Neutrophils Absolute Auto 7.3 x10*3/uL (2.0-8.3); Platelet Count 270 X10*3/uL (160-400); Red Blood Count 4.37 X10*6/uL (4.20-5.50); Red Cell Distribution Width 14.4 % (11.0-16.0); White Blood Count 10.4 X10*3/uL (4.8-10.8)
== END 2020-12-29 12:59 | disposition home or self-care (01) ==
LOC: HO.HMGCLR 12:58
PROVIDERS: PCP Internal Medicine; Visit Provider Psychiatry & Neurology Psychiatry
DX: Z51.81 Encounter for therapeutic drug level monitoring (principal); Z79.899 Other long term (current) drug therapy
CPT/HCPCS: 36415; 85025

== ENCOUNTER 2021-01-12 14:20 | Outpatient (REF) | payer BC, SELFPAY ==
[2021-01-12 15:28] LABS: MANUAL DIFF FLAG NO
[2021-01-12 15:31] LABS: Basophils Absolute Auto 0.1 X10*3/uL (0.0-0.2); Basophils Percent Auto 0.6 % (0-2); Eosinophils Absolute Auto 0.2 X10*3/uL (0.0-0.4); Eosinophils Percent Auto 2.4 % (0-4); Hematocrit 42.4 % (37.0-47.0); Hemoglobin 13.8 g/dl (12.0-16.0); Imm Gran Abs Auto 0.03 X10*3/uL (0.00-0.03); Imm Gran Pct Auto 0.4 % (0.0-0.4); Lymphocytes Absolute Auto 3.7 X10*3/uL (1.2-4.9); Lymphocytes Percent Auto 43.8 % (20-40); Mean Corpuscular HGB Conc 32.5 g/dl (31.0-35.0); Mean Corpuscular Hemoglobin 29.3 pg (27.0-33.0); Mean Platelet Volume 11.5 fL (9.4-12.3); Monocytes Absolute Auto 0.4 X10*3/uL (0.1-1.2); Monocytes Percent Auto 5.3 % (2-11); NRBC Pct Auto 0.2 /100WBC (0.0-0.2); Neut%MD 47.5 %; Neutrophils Percent Auto 47.5 % (45-73); Platelet Count 263 X10*3/uL (160-400); Red Blood Count 4.71 X10*6/uL (4.20-5.50); Red Cell Distribution Width 14.4 % (11.0-16.0); WBCANC 8.3 X10*3/uL; White Blood Count 8.3 X10*3/uL (4.8-10.8)
== END 2021-01-12 14:21 | disposition home or self-care (01) ==
LOC: HO.HMGCLR 14:20
PROVIDERS: PCP Internal Medicine; Visit Provider Psychiatry & Neurology Psychiatry
DX: Z79.899 Other long term (current) drug therapy (principal)
CPT/HCPCS: 36415; 85025

== ENCOUNTER 2021-01-26 14:14 | Outpatient (REF) | payer BC, SELFPAY ==
[2021-01-26 15:08] LABS: MANUAL DIFF FLAG NO
[2021-01-26 15:34] LABS: Basophils Percent Auto 0.4 % (0-2); Eosinophils Absolute Auto 0.2 X10*3/uL (0.0-0.4); Eosinophils Percent Auto 3.2 % (0-4); Hematocrit 40.5 % (37.0-47.0); Hemoglobin 13.2 g/dl (12.0-16.0); Imm Gran Abs Auto 0.03 X10*3/uL (0.00-0.03); Imm Gran Pct Auto 0.4 % (0.0-0.4); Lymphocytes Percent Auto 43.6 % (20-40); Mean Corpuscular HGB Conc 32.6 g/dl (31.0-35.0); Mean Corpuscular Hemoglobin 29.7 pg (27.0-33.0); Mean Platelet Volume 11.2 fL (9.4-12.3); Monocytes Absolute Auto 0.4 X10*3/uL (0.1-1.2); Monocytes Percent Auto 6.5 % (2-11); Neut%MD 45.9 %; Neutrophils Absolute Auto 3.1 x10*3/uL (2.0-8.3); Neutrophils Percent Auto 45.9 % (45-73); Platelet Count 277 X10*3/uL (160-400); Red Blood Count 4.45 X10*6/uL (4.20-5.50); Red Cell Distribution Width 14.6 % (11.0-16.0); WBCANC 6.8 X10*3/uL; White Blood Count 6.8 X10*3/uL (4.8-10.8)
== END 2021-01-26 14:15 | disposition home or self-care (01) ==
LOC: HO.HMGCLR 14:14
PROVIDERS: PCP Internal Medicine; Visit Provider Psychiatry & Neurology Psychiatry
DX: Z51.81 Encounter for therapeutic drug level monitoring (principal); Z79.899 Other long term (current) drug therapy
CPT/HCPCS: 36415; 85025

== ENCOUNTER 2021-02-11 11:18 | Outpatient (REF) | payer BC, SELFPAY ==
[2021-02-11 14:00] LABS: MANUAL DIFF FLAG NO
[2021-02-11 14:07] LABS: Basophils Percent Auto 0.6 % (0-2); Eosinophils Absolute Auto 0.2 X10*3/uL (0.0-0.4); Hematocrit 39.3 % (37.0-47.0); Hemoglobin 12.6 g/dl (12.0-16.0); Imm Gran Abs Auto 0.07 X10*3/uL (0.00-0.03); Imm Gran Pct Auto 1.1 % (0.0-0.4); Lymphocytes Absolute Auto 2.9 X10*3/uL (1.2-4.9); Lymphocytes Percent Auto 42.9 % (20-40); Mean Corpuscular HGB Conc 32.1 g/dl (31.0-35.0); Mean Corpuscular Hemoglobin 29.1 pg (27.0-33.0); Mean Corpuscular Volume 90.8 fL (80.0-98.0); Mean Platelet Volume 11.6 fL (9.4-12.3); Monocytes Absolute Auto 0.5 X10*3/uL (0.1-1.2); Monocytes Percent Auto 6.8 % (2-11); NRBC Pct Auto 0.3 /100WBC (0.0-0.2); Neutrophils Percent Auto 45.6 % (45-73); Platelet Count 280 X10*3/uL (160-400); Red Blood Count 4.33 X10*6/uL (4.20-5.50); Red Cell Distribution Width 14.1 % (11.0-16.0); White Blood Count 6.6 X10*3/uL (4.8-10.8)
== END 2021-02-11 11:19 | disposition home or self-care (01) ==
LOC: HO.HMGCLR 11:18
PROVIDERS: PCP Internal Medicine; Visit Provider Psychiatry & Neurology Psychiatry
DX: Z51.81 Encounter for therapeutic drug level monitoring (principal); Z79.01 Long term (current) use of anticoagulants
CPT/HCPCS: 36415; 85025

== ENCOUNTER 2021-02-23 14:07 | Outpatient (REF) | payer BC, SELFPAY ==
[2021-02-23 15:12] LABS: MANUAL DIFF FLAG NO
[2021-02-23 15:13] LABS: Basophils Absolute Auto 0.1 X10*3/uL (0.0-0.2); Basophils Percent Auto 0.9 % (0-2); Eosinophils Absolute Auto 0.2 X10*3/uL (0.0-0.4); Eosinophils Percent Auto 2.3 % (0-4); Hematocrit 41.3 % (37.0-47.0); Hemoglobin 13.4 g/dl (12.0-16.0); Imm Gran Abs Auto 0.02 X10*3/uL (0.00-0.03); Imm Gran Pct Auto 0.3 % (0.0-0.4); Lymphocytes Percent Auto 42.5 % (20-40); Mean Corpuscular HGB Conc 32.4 g/dl (31.0-35.0); Mean Corpuscular Hemoglobin 29.4 pg (27.0-33.0); Mean Corpuscular Volume 90.6 fL (80.0-98.0); Mean Platelet Volume 11.3 fL (9.4-12.3); Monocytes Absolute Auto 0.5 X10*3/uL (0.1-1.2); Monocytes Percent Auto 6.4 % (2-11); Neut%MD 47.6 %; Neutrophils Absolute Auto 3.4 x10*3/uL (2.0-8.3); Neutrophils Percent Auto 47.6 % (45-73); Platelet Count 270 X10*3/uL (160-400); Red Blood Count 4.56 X10*6/uL (4.20-5.50); Red Cell Distribution Width 14.4 % (11.0-16.0)
== END 2021-02-23 14:08 | disposition home or self-care (01) ==
LOC: HO.HMGCLDS 14:07
PROVIDERS: PCP Internal Medicine; Visit Provider Psychiatry & Neurology Psychiatry
DX: Z51.81 Encounter for therapeutic drug level monitoring (principal)
CPT/HCPCS: 36415; 85025

== ENCOUNTER 2021-03-23 14:14 | Outpatient (REF) | payer BC, SELFPAY ==
[2021-03-23 15:16] LABS: MANUAL DIFF FLAG NO
[2021-03-23 15:36] LABS: Basophils Absolute Auto 0.1 X10*3/uL (0.0-0.2); Basophils Percent Auto 1.1 % (0-2); Eosinophils Absolute Auto 0.2 X10*3/uL (0.0-0.4); Eosinophils Percent Auto 2.3 % (0-4); Hematocrit 43.1 % (37.0-47.0); Hemoglobin 13.9 g/dl (12.0-16.0); Imm Gran Abs Auto 0.02 X10*3/uL (0.00-0.03); Imm Gran Pct Auto 0.3 % (0.0-0.4); Lymphocytes Absolute Auto 2.8 X10*3/uL (1.2-4.9); Lymphocytes Percent Auto 42.6 % (20-40); Mean Corpuscular HGB Conc 32.3 g/dl (31.0-35.0); Mean Platelet Volume 11.5 fL (9.4-12.3); Monocytes Absolute Auto 0.4 X10*3/uL (0.1-1.2); Monocytes Percent Auto 6.2 % (2-11); Neutrophils Absolute Auto 3.1 x10*3/uL (2.0-8.3); Neutrophils Percent Auto 47.5 % (45-73); Platelet Count 287 X10*3/uL (160-400); Red Blood Count 4.79 X10*6/uL (4.20-5.50); Red Cell Distribution Width 14.3 % (11.0-16.0); White Blood Count 6.5 X10*3/uL (4.8-10.8)
== END 2021-03-23 14:15 | disposition home or self-care (01) ==
LOC: HO.HMGCLDS 14:14
PROVIDERS: Visit Provider Psychiatry & Neurology Psychiatry
DX: Z51.81 Encounter for therapeutic drug level monitoring (principal)
CPT/HCPCS: 36415; 85025

== ENCOUNTER 2021-04-20 14:03 | Outpatient (REF) | payer BC, SELFPAY ==
[2021-04-20 15:31] LABS: MANUAL DIFF FLAG NO
[2021-04-20 15:33] LABS: Basophils Absolute Auto 0.1 X10*3/uL (0.0-0.2); Basophils Percent Auto 0.9 % (0-2); Eosinophils Absolute Auto 0.2 X10*3/uL (0.0-0.4); Eosinophils Percent Auto 2.7 % (0-4); Hematocrit 40.3 % (37.0-47.0); Hemoglobin 13.4 g/dl (12.0-16.0); Imm Gran Abs Auto 0.02 X10*3/uL (0.00-0.03); Imm Gran Pct Auto 0.3 % (0.0-0.4); Lymphocytes Absolute Auto 2.9 X10*3/uL (1.2-4.9); Lymphocytes Percent Auto 44.6 % (20-40); Mean Corpuscular HGB Conc 33.3 g/dl (31.0-35.0); Mean Corpuscular Hemoglobin 29.3 pg (27.0-33.0); Mean Corpuscular Volume 88.2 fL (80.0-98.0); Mean Platelet Volume 11.7 fL (9.4-12.3); Monocytes Absolute Auto 0.4 X10*3/uL (0.1-1.2); Monocytes Percent Auto 6.1 % (2-11); Neutrophils Percent Auto 45.4 % (45-73); Platelet Count 273 X10*3/uL (160-400); Red Blood Count 4.57 X10*6/uL (4.20-5.50); Red Cell Distribution Width 14.6 % (11.0-16.0); White Blood Count 6.6 X10*3/uL (4.8-10.8)
== END 2021-04-20 14:04 | disposition home or self-care (01) ==
LOC: HO.HMGCLR 14:03
PROVIDERS: Visit Provider Psychiatry & Neurology Psychiatry
DX: Z79.899 Other long term (current) drug therapy (principal)
CPT/HCPCS: 36415; 85025

== ENCOUNTER 2021-05-18 13:18 | Outpatient (REF) | payer BC, SELFPAY ==
[2021-05-18 15:55] LABS: MANUAL DIFF FLAG NO
[2021-05-18 15:59] LABS: Basophils Absolute Auto 0.1 X10*3/uL (0.0-0.2); Eosinophils Absolute Auto 0.2 X10*3/uL (0.0-0.4); Eosinophils Percent Auto 2.7 % (0-4); Hematocrit 41.3 % (37.0-47.0); Hemoglobin 13.6 g/dl (12.0-16.0); Imm Gran Abs Auto 0.02 X10*3/uL (0.00-0.03); Imm Gran Pct Auto 0.3 % (0.0-0.4); Lymphocytes Percent Auto 44.2 % (20-40); Mean Corpuscular HGB Conc 32.9 g/dl (31.0-35.0); Mean Corpuscular Hemoglobin 29.8 pg (27.0-33.0); Mean Corpuscular Volume 90.4 fL (80.0-98.0); Mean Platelet Volume 11.9 fL (9.4-12.3); Monocytes Absolute Auto 0.4 X10*3/uL (0.1-1.2); Neutrophils Absolute Auto 3.1 x10*3/uL (2.0-8.3); Neutrophils Percent Auto 45.8 % (45-73); Platelet Count 261 X10*3/uL (160-400); Red Blood Count 4.57 X10*6/uL (4.20-5.50); Red Cell Distribution Width 14.7 % (11.0-16.0); White Blood Count 6.7 X10*3/uL (4.8-10.8)
[2021-05-18 16:10] LABS: Cholesterol 282 mg/dL; HDL Cholesterol 41 mg/dL; LDL Cholesterol Calculated 168 mg/dl; Triglycerides 366 mg/dL
[2021-05-18 16:24] LABS: Estimated Average Glucose 126 mg/dL; Hemoglobin A1C 148.8127 umol/L
== END 2021-05-18 13:19 | disposition home or self-care (01) ==
LOC: HO.HMGCLR 13:18
PROVIDERS: Visit Provider Psychiatry & Neurology Psychiatry
DX: Z51.81 Encounter for therapeutic drug level monitoring (principal); Z79.899 Other long term (current) drug therapy
CPT/HCPCS: 36415; 80061; 83036; 85025

== ENCOUNTER 2021-06-15 14:06 | Outpatient (REF) | payer BC, SELFPAY ==
[2021-06-15 15:47] LABS: MANUAL DIFF FLAG NO
[2021-06-15 16:01] LABS: Basophils Percent Auto 0.7 % (0-2); Eosinophils Absolute Auto 0.2 X10*3/uL (0.0-0.4); Eosinophils Percent Auto 3.6 % (0-4); Hematocrit 41.2 % (37.0-47.0); Hemoglobin 13.6 g/dl (12.0-16.0); Imm Gran Abs Auto 0.03 X10*3/uL (0.00-0.03); Imm Gran Pct Auto 0.5 % (0.0-0.4); Lymphocytes Absolute Auto 2.7 X10*3/uL (1.2-4.9); Mean Corpuscular Hemoglobin 28.9 pg (27.0-33.0); Mean Corpuscular Volume 87.7 fL (80.0-98.0); Mean Platelet Volume 11.2 fL (9.4-12.3); Monocytes Absolute Auto 0.4 X10*3/uL (0.1-1.2); Monocytes Percent Auto 6.4 % (2-11); Neutrophils Absolute Auto 2.4 x10*3/uL (2.0-8.3); Neutrophils Percent Auto 41.8 % (45-73); Platelet Count 291 X10*3/uL (160-400); Red Cell Distribution Width 14.4 % (11.0-16.0); White Blood Count 5.8 X10*3/uL (4.8-10.8)
== END 2021-06-15 14:07 | disposition home or self-care (01) ==
LOC: HO.HMGCLR 14:06
PROVIDERS: PCP Internal Medicine; Visit Provider Psychiatry & Neurology Psychiatry
DX: Z51.81 Encounter for therapeutic drug level monitoring (principal); Z79.899 Other long term (current) drug therapy
CPT/HCPCS: 36415; 85025

== ENCOUNTER 2021-07-16 08:31 | Outpatient (REF) | payer BC, SELFPAY ==
[2021-07-16 11:21] LABS: MANUAL DIFF FLAG NO
[2021-07-16 11:35] LABS: Basophils Absolute Auto 0.1 X10*3/uL (0.0-0.2); Eosinophils Absolute Auto 0.2 X10*3/uL (0.0-0.4); Eosinophils Percent Auto 2.8 % (0-4); Hematocrit 41.3 % (37.0-47.0); Hemoglobin 13.2 g/dl (12.0-16.0); Imm Gran Abs Auto 0.02 X10*3/uL (0.00-0.03); Imm Gran Pct Auto 0.3 % (0.0-0.4); Lymphocytes Absolute Auto 4.3 X10*3/uL (1.2-4.9); Lymphocytes Percent Auto 53.8 % (20-40); Mean Corpuscular Hemoglobin 28.5 pg (27.0-33.0); Mean Corpuscular Volume 89.2 fL (80.0-98.0); Mean Platelet Volume 11.1 fL (9.4-12.3); Monocytes Absolute Auto 0.4 X10*3/uL (0.1-1.2); Monocytes Percent Auto 5.6 % (2-11); Neutrophils Absolute Auto 2.9 x10*3/uL (2.0-8.3); Neutrophils Percent Auto 36.5 % (45-73); Platelet Count 263 X10*3/uL (160-400); Red Blood Count 4.63 X10*6/uL (4.20-5.50); Red Cell Distribution Width 14.9 % (11.0-16.0); White Blood Count 7.9 X10*3/uL (4.8-10.8)
== END 2021-07-16 08:32 | disposition home or self-care (01) ==
LOC: HO.HMGCLR 08:31
PROVIDERS: Visit Provider Psychiatry & Neurology Psychiatry
DX: Z51.81 Encounter for therapeutic drug level monitoring (principal)
CPT/HCPCS: 36415; 85025

== ENCOUNTER 2021-08-10 14:07 | Outpatient (REF) | payer BC, SELFPAY ==
[2021-08-10 15:15] LABS: MANUAL DIFF FLAG NO
[2021-08-10 15:17] LABS: Basophils Absolute Auto 0.1 X10*3/uL (0.0-0.2); Eosinophils Absolute Auto 0.2 X10*3/uL (0.0-0.4); Eosinophils Percent Auto 2.4 % (0-4); Hematocrit 40.9 % (37.0-47.0); Hemoglobin 13.2 g/dl (12.0-16.0); Imm Gran Abs Auto 0.03 X10*3/uL (0.00-0.03); Imm Gran Pct Auto 0.4 % (0.0-0.4); Lymphocytes Absolute Auto 3.1 X10*3/uL (1.2-4.9); Lymphocytes Percent Auto 44.7 % (20-40); Mean Corpuscular HGB Conc 32.3 g/dl (31.0-35.0); Mean Corpuscular Hemoglobin 28.6 pg (27.0-33.0); Mean Corpuscular Volume 88.5 fL (80.0-98.0); Mean Platelet Volume 11.3 fL (9.4-12.3); Monocytes Absolute Auto 0.4 X10*3/uL (0.1-1.2); Neutrophils Absolute Auto 3.2 x10*3/uL (2.0-8.3); Neutrophils Percent Auto 46.5 % (45-73); Platelet Count 277 X10*3/uL (160-400); Red Blood Count 4.62 X10*6/uL (4.20-5.50); Red Cell Distribution Width 14.6 % (11.0-16.0)
== END 2021-08-10 14:08 | disposition home or self-care (01) ==
LOC: HO.HMGCLR 14:07
PROVIDERS: PCP Internal Medicine; Visit Provider Psychiatry & Neurology Psychiatry
DX: Z51.81 Encounter for therapeutic drug level monitoring (principal)
CPT/HCPCS: 36415; 85025

== ENCOUNTER 2021-08-31 21:35 | Inpatient (IN) | payer BC, SELFPAY ==
--- NOTE | ~2021-08-31 | XR_ITS ---
EXAMINATION: XR ABDOMEN KUB CLINICAL INDICATION: Constipation for several days. COMPARISON: None TECHNIQUE: AP view of the abdomen. FINDINGS: There is a nonobstructive bowel gas pattern. Mild to moderate stool seen within the colon distally to the rectum. An IUD is noted overlying the mid pelvis with horizontal orientation. XR/XR KUB IMPRESSION: 1. Nonobstructive bowel gas pattern. Mild to moderate colonic and rectal stool burden. 2. Horizontal orientation of the IUD overlying the mid pelvis. This could be secondary to uterine tilt however the location cannot be determined on this study. Confirmation with pelvic ultrasound is recommended.
[2021-08-31 21:55] VITALS: BP 140/99; PULSE 102; RESP 17; TEMP 36.5; O2SAT 97; BMI 37.8
--- NOTE | 2021-08-31 22:20 | ED.PSYCH ---
HPI - Psych General Chief Complaint: Psychiatric Symptoms Stated Complaint: SI Time Seen by Provider: 08/31/21 22:16 Source: patient Mode of arrival: ambulatory Limitations: no limitations History of Present Illness HPI Narrative: 36-year-old female with history of depression presenting to the emergency department with suicidal ideation, auditory/visual hallucinations. Patient tells me she is hearing a man with a deep voice telling her to hurt herself, along with shadow people in the corner of her eye. She reports that she has missed the last 3 days of her clozapine, non med compliant. Denies tactile hallucinations. Denies drugs, alcohol and tobacco. Denies any medical complaints. Denies homicidal ideation. Related Data Home Medications Medication Instructions Recorded Confirmed clozapine 100 mg tablet 1 tab PO BEDTIME 08/31/21 08/31/21 clozapine 200 mg tablet 1 tab PO BEDTIME 08/31/21 08/31/21 clozapine 50 mg tablet 1 tab PO BEDTIME 08/31/21 08/31/21 lorazepam 1 mg tablet 1 tab PO BID PRN Anxiety 08/31/21 08/31/21 trazodone 100 mg tablet 1 tab PO BEDTIME 08/31/21 08/31/21 Allergies Allergy/AdvReac Type Severity Reaction Status Date / Time haloperidol [From HALDOL] AdvReac Unknown EYES Unverified 11/03/19 19:18 ROLLED BACK Review of Systems Review of Systems: Constitutional : No Weight loss, No Fever, No Chills, No Fatigue, No Malaise ENT/Mouth : No sore throat, No Rhinorrhea Eyes: No Eye Pain, No Swelling, No Redness Cardiovascular : No Chest Pain, No SOB, No Dyspnea on Exertion, No Orthopnea, No Edema, No Palpitations Respiratory : No Cough, No Sputum, No Wheezing Gastrointestinal : No Nausea, No Vomiting, No Diarrhea, No Constipation, No abdominal Pain, No Hematochezia, No Melena Genitourinary : No Dysuria, No Urinary Frequency, No Hematuria, Musculoskeletal : No joint pain, No Myalgias, No Joint Swelling Skin : No Skin Lesions, No rash Neuro : No Weakness, No Numbness, No Dizziness, No Headache Psych : No Anxiety/Panic, + Depression, + SI, No HI, No V, + AH, No TH All other systems reviewed and are negative Yes all other systems are reviewed and are negative [facility] Past Medical History Attestation statement: The following information was validated with the patient. Source: old records reviewed and nursing notes reviewed Medical History Psychosis Social History Social History Advance Directives: No Advance Directives Information Provided: Yes Physical Exam Vital Signs: Vital Signs: Last Vital Signs Temp 97.7 F 08/31/21 21:55 Pulse 102 H 08/31/21 21:55 Resp 17 08/31/21 21:55 BP 140/99 H 08/31/21 21:55 Pulse Ox 97 08/31/21 21:55 O2 Del Method 08/31/21 21:55 BMI result Body Mass Index 37.8 VSS Appearance: Alert.? Oriented X3.? No acute distress.? Head: Normocephalic, atraumatic, no step-offs or deformities Eyes: Pupils equal, round and reactive to light.? CVS: Normal heart rate and rhythm.? Pulses normal.? Respiratory: No respiratory distress.? Breath sounds normal.? Abdomen: Soft and nontender.? Skin: Skin warm and dry.? Normal skin color.? Normal skin turgor.? Extremities: No lower extremity edema.? No calf ttp. 5/5 strength to bilateral upper and lower extremities Back: No midline tenderness, no C-spine tenderness, full range of motion, no CVA tenderness bilaterally Neuro: Oriented X 3.? No motor deficit.? No sensory deficit. CN 2-12 intact Course Reevaluation(s) Reevaluation #1: CBC within normal limits. Chemistry with no acute electrolyte abnormalities requiring intervention. UA negative for infection, trace leukocyte esterases however likely secondary to contamination As patient is not experiencing any urinary symptoms. Urine toxicology negative. Negative for salicylates, acetaminophen and ethanol. COVID negative. At this time patient will be placed into physician observation to allow more time to be evaluated by the behavioral health team. At time observation was started patient common cooperative no acute distress will continue to monitor. Time: 23:53 MDM - Psych MDM Narrative Medical decision making narrative: [id number] 36-year-old female presents to the emergency department with suicidal ideation, visual and auditory hallucinations physical examination benign . Patient does have a flat affect. plan at this time is medical clearance and evaluation by the behavioral health team. Medical Records Attestation: I reviewed the patient's medical records. Lab Data Attestation: I reviewed the patient's lab results. Result diagrams: 08/31/21 22:29 08/31/21 22:29 Labs: Lab Results 08/31/21 08/31/21 08/31/21 Range/Units 22:07 22:13 22:14 WBC (4.8-10.8) X10*3/uL RBC (4.20-5.50) X10*6/uL Hgb (12.0-16.0) g/dl Hct (37.0-47.0) % MCV (80.0-98.0) fL MCH (27.0-33.0) pg MCHC (31.0-35.0) g/dl RDW (11.0-16.0) % Plt Count (160-400) X10*3/uL MPV (9.4-12.3) fL Immature Gran % (Auto) (0.0-0.4) % Neut % (Auto) (45-73) % Lymph % (Auto) (20-40) % [place] % (Auto) (2-11) % Eos % (Auto) (0-4) % Baso % (Auto) (0-2) % Lymph # (Auto) (1.2-4.9) X10*3/uL [place] # (Auto) (0.1-1.2) X10*3/uL Eos # (Auto) (0.0-0.4) X10*3/uL Baso # (Auto) (0.0-0.2) X10*3/uL Abs Immat Gran (auto) (0.00-0.03) X10*3/uL Absolute Neuts (auto) (2.0-8.3) x10*3/uL Absolute Nucleated RBC (0.0-0.012) X10*3/uL Nucleated RBC % (auto) (0.0-0.2) /100WBC Sodium (135-145) mmol/L Potassium (3.3-5.1) mmol/L Chloride (96-108) mmol/L Carbon Dioxide (22-29) mmol/L Anion Gap (12-20) BUN (9-16) mg/dL Creatinine (0.5-1.4) mg/dL Estim Creat Clear Calc Estimated GFR Random Glucose (60-115) mg/dL Calcium (8.4-10.2) mg/dL Urine Color Urine Appearance Urine pH (5.0-8.0) Ur Specific [place] (1.005-1.025) Urine Protein (NEG-TRACE) MG/DL Urine Glucose (UA) (NEG) MG/DL Urine Ketones (NEG) MG/DL Urine Blood (NEG) Urine Nitrite (NEG) Ur Leukocyte Esterase (NEG) Urine RBC (0) /HPF Urine WBC (0-4) /HPF Ur Squamous Epith Cells /LPF Urine Bacteria /LPF Urine Test NEGATIVE (NEGATIVE) Salicylates (15-30) mg/dL Urine Opiates Screen Not Detected (Not Detect) Urine Fentanyl Screen Not Detected (Not Detect) Acetaminophen (<30) mcg/mL Ur Barbiturates Screen Not Detected (Not Detect) Ur Phencyclidine Scrn Not Detected (Not Detect) Ur Amphetamines Screen Not Detected (Not Detect) U Benzodiazepines Scrn Not Detected (Not Detect) Urine Cocaine Screen Not Detected (Not Detect) U Marijuana (THC) Screen Not Detected (Not Detect) Ethyl Alcohol mg/dL COVID-19 (SHIREEN) Negative (Negative) COVID-19 Clin Com See Note 08/31/21 08/31/21 08/31/21 Range/Units 22:14 22:29 22:29 WBC 8.0 (4.8-10.8) X10*3/uL RBC 4.51 (4.20-5.50) X10*6/uL Hgb 13.1 (12.0-16.0) g/dl Hct 39.7 (37.0-47.0) % MCV 88.0 (80.0-98.0) fL MCH 29.0 (27.0-33.0) pg MCHC 33.0 (31.0-35.0) g/dl RDW 14.5 (11.0-16.0) % Plt Count 265 (160-400) X10*3/uL MPV 11.3 (9.4-12.3) fL Immature Gran % (Auto) 0.5 H (0.0-0.4) % Neut % (Auto) 48.8 (45-73) % Lymph % (Auto) 39.7 (20-40) % [place] % (Auto) 8.1 (2-11) % Eos % (Auto) 2.0 (0-4) % Baso % (Auto) 0.9 (0-2) % Lymph # (Auto) 3.2 (1.2-4.9) X10*3/uL [place] # (Auto) 0.6 (0.1-1.2) X10*3/uL Eos # (Auto) 0.2 (0.0-0.4) X10*3/uL Baso # (Auto) 0.1 (0.0-0.2) X10*3/uL Abs Immat Gran (auto) 0.04 H (0.00-0.03) X10*3/uL Absolute Neuts (auto) 3.9 (2.0-8.3) x10*3/uL Absolute Nucleated RBC 0.000 (0.0-0.012) X10*3/uL Nucleated RBC % (auto) 0.0 (0.0-0.2) /100WBC Sodium 140 (135-145) mmol/L Potassium 3.9 (3.3-5.1) mmol/L Chloride 107 (96-108) mmol/L Carbon Dioxide 21 L (22-29) mmol/L Anion Gap 16 (12-20) BUN 10 (9-16) mg/dL Creatinine 0.83 (0.5-1.4) mg/dL Estim Creat Clear Calc 108.5 Estimated GFR > 60 Random Glucose 102 (60-115) mg/dL Calcium 10.5 H D (8.4-10.2) mg/dL Urine Color YELLOW Urine Appearance CLEAR Urine pH 5.5 (5.0-8.0) Ur Specific [place] 1.025 (1.005-1.025) Urine Protein NEG (NEG-TRACE) MG/DL Urine Glucose (UA) NEG (NEG) MG/DL Urine Ketones NEG (NEG) MG/DL Urine Blood 1+ H (NEG) Urine Nitrite NEG (NEG) Ur Leukocyte Esterase TRACE H (NEG) Urine RBC 0-2 (0) /HPF Urine WBC 0-2 (0-4) /HPF Ur Squamous Epith Cells TRACE /LPF Urine Bacteria TRACE /LPF Urine Test (NEGATIVE) Salicylates (15-30) mg/dL Urine Opiates Screen (Not Detect) Urine Fentanyl Screen (Not Detect) Acetaminophen (<30) mcg/mL Ur Barbiturates Screen (Not Detect) Ur Phencyclidine Scrn (Not Detect) Ur Amphetamines Screen (Not Detect) U Benzodiazepines Scrn (Not Detect) Urine Cocaine Screen (Not Detect) U Marijuana (THC) Screen (Not Detect) Ethyl Alcohol mg/dL COVID-19 (SHIREEN) (Negative) COVID-19 Clin Com 08/31/21 Range/Units 22:29 WBC (4.8-10.8) X10*3/uL RBC (4.20-5.50) X10*6/uL Hgb (12.0-16.0) g/dl Hct (37.0-47.0) % MCV (80.0-98.0) fL MCH (27.0-33.0) pg MCHC (31.0-35.0) g/dl RDW (11.0-16.0) % Plt Count (160-400) X10*3/uL MPV (9.4-12.3) fL Immature Gran % (Auto) (0.0-0.4) % Neut % (Auto) (45-73) % Lymph % (Auto) (20-40) % [place] % (Auto) (2-11) % Eos % (Auto) (0-4) % Baso % (Auto) (0-2) % Lymph # (Auto) (1.2-4.9) X10*3/uL [place] # (Auto) (0.1-1.2) X10*3/uL Eos # (Auto) (0.0-0.4) X10*3/uL Baso # (Auto) (0.0-0.2) X10*3/uL Abs Immat Gran (auto) (0.00-0.03) X10*3/uL Absolute Neuts (auto) (2.0-8.3) x10*3/uL Absolute Nucleated RBC (0.0-0.012) X10*3/uL Nucleated RBC % (auto) (0.0-0.2) /100WBC Sodium (135-145) mmol/L Potassium (3.3-5.1) mmol/L Chloride (96-108) mmol/L Carbon Dioxide (22-29) mmol/L Anion Gap (12-20) BUN (9-16) mg/dL Creatinine (0.5-1.4) mg/dL Estim Creat Clear Calc Estimated GFR Random Glucose (60-115) mg/dL Calcium (8.4-10.2) mg/dL Urine Color Urine Appearance Urine pH (5.0-8.0) Ur Specific [place] (1.005-1.025) Urine Protein (NEG-TRACE) MG/DL Urine Glucose (UA) (NEG) MG/DL Urine Ketones (NEG) MG/DL Urine Blood (NEG) Urine Nitrite (NEG) Ur Leukocyte Esterase (NEG) Urine RBC (0) /HPF Urine WBC (0-4) /HPF Ur Squamous Epith Cells /LPF Urine Bacteria /LPF Urine Test (NEGATIVE) Salicylates < 5.0 L (15-30) mg/dL Urine Opiates Screen (Not Detect) Urine Fentanyl Screen (Not Detect) Acetaminophen < 1 (<30) mcg/mL Ur Barbiturates Screen (Not Detect) Ur Phencyclidine Scrn (Not Detect) Ur Amphetamines Screen (Not Detect) U Benzodiazepines Scrn (Not Detect) Urine Cocaine Screen (Not Detect) U Marijuana (THC) Screen (Not Detect) Ethyl Alcohol < 10 mg/dL COVID-19 (SHIREEN) (Negative) COVID-19 Clin Com Critical Care Time Critical Care Time Critical Care Time: No Discharge Plan Discharge Clinical Impression: Suicidal ideation, Depression Patient Disposition: Still a Patient Prescriptions: No Action clozapine 200 mg tablet 1 tab PO BEDTIME clozapine 50 mg tablet 1 tab PO BEDTIME lorazepam 1 mg tablet 1 tab PO BID PRN (Reason: Anxiety) trazodone 100 mg tablet 1 tab PO BEDTIME clozapine 100 mg tablet 1 tab PO BEDTIME
[2021-08-31 22:24] LABS: Appearance Urine CLEAR; Color Urine YELLOW; Glucose Urine UA NEG (NEG); Leukocyte Esterase Urine TRACE (NEG); Nitrite Urine NEG (NEG); PH 5.5 (5.0-8.0); Specific Gravity - Urine 1.025 (1.005-1.025); Urine Blood 1+ (NEG); Urine Ketones NEG (NEG); Urine Protein NEG (NEG-TRACE)
[2021-08-31 22:34] LABS: MANUAL DIFF FLAG NO
[2021-08-31 22:38] LABS: Amphetamine Screen Urine Not Detected (Not Detect); Barbiturates, Urine Not Detected (Not Detect); Benzodiazepines Screen Urine Not Detected (Not Detect); Cannabinoid Screen Urine Not Detected (Not Detect); Cocaine Screen Urine Not Detected (Not Detect); Fentanyl, urine Not Detected (Not Detect); Opiate Screen Urine Not Detected (Not Detect); Phencyclidine Screen Urine Not Detected (Not Detect)
[2021-08-31 22:43] LABS: Bacteria Urine TRACE /LPF; RBC Urine 0-2 /HPF (0); Squamous Epithelial Cell Urine TRACE /LPF; WBC Urine 0-2 /HPF (0-4)
[2021-08-31 22:47] LABS: Basophils Absolute Auto 0.1 X10*3/uL (0.0-0.2); Basophils Percent Auto 0.9 % (0-2); Eosinophils Absolute Auto 0.2 X10*3/uL (0.0-0.4); Hematocrit 39.7 % (37.0-47.0); Hemoglobin 13.1 g/dl (12.0-16.0); Imm Gran Abs Auto 0.04 X10*3/uL (0.00-0.03); Imm Gran Pct Auto 0.5 % (0.0-0.4); Lymphocytes Absolute Auto 3.2 X10*3/uL (1.2-4.9); Lymphocytes Percent Auto 39.7 % (20-40); Mean Platelet Volume 11.3 fL (9.4-12.3); Monocytes Absolute Auto 0.6 X10*3/uL (0.1-1.2); Monocytes Percent Auto 8.1 % (2-11); Neutrophils Absolute Auto 3.9 x10*3/uL (2.0-8.3); Neutrophils Percent Auto 48.8 % (45-73); Platelet Count 265 X10*3/uL (160-400); Red Blood Count 4.51 X10*6/uL (4.20-5.50); Red Cell Distribution Width 14.5 % (11.0-16.0)
[2021-08-31 22:52] LABS: Ethanol < 10 mg/dL
[2021-08-31 22:55] LABS: COVID-19 Test Negative (Negative); IDNOW Serial# 16C4AD1C
[2021-08-31 22:55] LABS: Anion Gap 16 (12-20); Blood Urea Nitrogen 10 mg/dL (9-16); Calcium 10.5 mg/dL (8.4-10.2); Carbon Dioxide 21 mmol/L (22-29); Chloride 107 mmol/L (96-108); Creatinine Clr Calc Pharmacy 108.5; Estimated Glomerular Filt Rate > 60; Glucose Random 102 mg/dL (60-115); Potassium 3.9 mmol/L (3.3-5.1); Sodium 140 mmol/L (135-145)
[2021-08-31 22:56] LABS: Urine Pregnancy NEGATIVE (NEGATIVE)
[2021-08-31 22:57] LABS: UPreg QC Valid YES
[2021-08-31 23:37] LABS: Acetaminophen LAB < 1 mcg/mL (<30); Salicylate < 5.0 mg/dL (15-30)
[2021-09-01 00:31] VITALS: BP 127/88; PULSE 97; RESP 16; TEMP 36.9; O2SAT 97
[2021-09-01] MEDS: LORazepam 1 MG TABLET PO ×2 (00:34→20:03)
[2021-09-01] MEDS: cloZAPine 100 MG TABLET PO (00:34)
[2021-09-01] MEDS: traZODone HCL 100 MG TABLET PO ×2 (00:34→20:03)
[2021-09-01] MEDS: cloZAPine 100 MG TABLET 200 MG PO (00:35)
[2021-09-01] MEDS: cloZAPine 25 MG TABLET 50 MG PO ×2 (00:35→20:04)
[2021-09-01] MEDS: Melatonin 3 MG TABLET PO (01:58)
[2021-09-01] MEDS: Melatonin 3 MG TABLET 6 MG PO (01:59)
--- NOTE | 2021-09-01 07:28 | PC.NURSE ---
Patient slept through the night, no distress observed/reported, behavior non concerning, medication compliant, care team consult ordered/pending care team evaluation, VSS, contracted for the safety, will continue to monitor.
--- NOTE | 2021-09-01 10:44 | PHA.MEDREC ---
Pharmacy Consult ? Medication Reconciliation Pharmacy has completed the medication reconciliation. Spoke with patient in [facility]. Patient was able to tell me all medications she is taking. Patient takes a total of 350 mg of clozaril at bedtime and last took on 08/30.
--- NOTE | 2021-09-01 11:37 | PC.NURSE ---
patient currently sleeping, waiting to be seen by care team
[2021-09-01 12:02] VITALS: BP 108/81; PULSE 88; TEMP 36.6; O2SAT 98
--- NOTE | 2021-09-01 14:36 | PC.NURSE ---
patient sleeping/woke for lunch, pt admits to si without plan at this time, no c/o pain or discomfort, will continue to monitor.
--- NOTE | 2021-09-01 15:31 | MHC.CARE ---
Pt has been evaluated by CARE team and will remain in the ED on a Sect 12a pending inpt psychiatric admission. Pt and are aware of plan.
[2021-09-01 19:11] VITALS: BP 151/89; PULSE 99; RESP 20; TEMP 36.2; O2SAT 97
[2021-09-01] MEDS: cloZAPine 100 MG TABLET 300 MG PO (20:04)
--- NOTE | 2021-09-02 | ECG_ITS ---
Test Reason : cp Blood Pressure : / mmHG Vent. Rate : 097 BPM Atrial Rate : 097 BPM P-R Int : 126 ms QRS Dur : 084 ms QT Int : 362 ms P-R-T Axes : 012 009 022 degrees QTc Int : 459 ms Normal sinus rhythm Minimal voltage criteria for LVH, may be normal variant ( R in aVL ) Nonspecific T wave abnormality Abnormal ECG When compared with ECG of 02-SEP-2021 15:32, No significant change was found Referred By: Safia Stubbs Electronically Signed By:Gutierrez Alex
--- NOTE | 2021-09-02 | ECG_ITS ---
Test Reason : med clearence Blood Pressure : / mmHG Vent. Rate : 108 BPM Atrial Rate : 108 BPM P-R Int : 124 ms QRS Dur : 080 ms QT Int : 318 ms P-R-T Axes : 038 015 046 degrees QTc Int : 426 ms Sinus tachycardia Nonspecific T wave abnormality Abnormal ECG When compared with ECG of 24-DEC-2019 08:51, No significant changes seen Referred By: Iram Adan Electronically Signed By:Gutierrez Alex
[2021-09-02 02:28] VITALS: BP 127/83; PULSE 99; RESP 16; TEMP 36.3; O2SAT 97
--- NOTE | 2021-09-02 05:57 | PC.NURSE ---
Patient slept through the night, no distress observed/reported, medication compliant, behavior appropriate and non concerning, disposition per Care Team is section 12 inpatient bed search, no update on bed search so far, VSS, will continue to monitor.
[2021-09-02 11:55] LABS: COVID-19 Test Negative (Negative); IDNOW Serial# 9DB6401D
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
[2021-09-02 17:26] VITALS: BMI 38.4
[2021-09-02 18:00] VITALS: BP 134/72; PULSE 98; RESP 18; TEMP 36.7; O2SAT 97
[2021-09-02] MEDS: LORazepam 1 MG TABLET PO (18:47)
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
[2021-09-02] MEDS: traZODone HCL 100 MG TABLET PO (20:41)
[2021-09-02] MEDS: cloZAPine 25 MG TABLET 50 MG PO (20:41)
[2021-09-02] MEDS: Magnesium Hydrox/Alum Hydrox 30 ML ORAL.SUSP PO (20:41)
[2021-09-02] MEDS: cloZAPine 100 MG TABLET 300 MG PO (20:41)
--- NOTE | 2021-09-02 21:51 | PC.NURSE ---
Patient c/o #6 CP. Denies radiation, no diaphoresis. Safia Stubbs APRN notified. Maalox administered. VSS 122/67, 18, 97RA.
--- NOTE | 2021-09-02 21:53 | PC.NURSE ---
Patient reported Maalox effective, pain reduced to #1. Reports pain was intermittent comes and goes . No further complaint.
[2021-09-03 06:00] VITALS: BP 138/88; PULSE 102; RESP 18; TEMP 36.5; O2SAT 97
[2021-09-03 08:45] LABS: Estimated Average Glucose 120 mg/dL; Hemoglobin A1c % 5.8 %
[2021-09-03 08:46] LABS: Cholesterol 251 mg/dL; HDL Cholesterol 37 mg/dL; LDL Cholesterol Calculated 149 mg/dl; Magnesium 2.2 mg/dL (1.6-2.6); Triglycerides 329 mg/dL
[2021-09-03 09:08] LABS: Free T4 (Free Thyroxine) 1.08 ng/dL (0.71-1.85); Thyroid Stimulating Hormone 2.42 uIU/mL (0.32-4.0)
[2021-09-03 11:56] LABS: Folate 9.6 ng/mL (> or = 4.0); Vitamin B12 426 pg/mL (200-900)
--- NOTE | 2021-09-03 12:13 | HO.PSYCHPN ---
Subjective Subjective Date of Service: 09/03/21 Reason For Visit: Schizophrenia auditory visual perceptual alteratio Subjective Notes: Conditional Voluntary Healthcare Proxy: No Guardianship: No Medical Problems Affecting Mental Status: No Interim History: Daysi reports Clozapine increase by 50 mg ~2 weeks ago. States she has been compliant with Clozapine, however still with command voices to kill herself along with visual perceptual alterations as well. Message sent to Dr. Leahy regarding his thoughts on medication interventions. Medication Compliance: Yes Side effects from medications: No Attending Groups: Intermittent Review of Systems Acute medical concerns: No Medical Review of Systems: unchanged Review of Systems Psychiatric: Reports auditory hallucinations, Reports visual hallucinations and Reports suicidal ideation Mental Status Exam Mental Status Exam Patient Appearance: Appropriate Patient Orientation: Person, Place, Time and Situation Level of Consciousness: Alert Patient Behavior: Talkative and Good Eye Contact Mood Description: Depressed Affect Description: Flat Patient Cognition Impaired: No Ability to Follow Directions: Good Speech Pattern: Spontaneous Speech Memory Description: Intact Hallucinations: Auditory and Visual Delusions: Paranoid Ideation Thought Process: Distracted and Rumination Thought Content: positive for Suicidal Ideation Depressive Symptoms: Increased Anxiety, Thoughts of /Suicide and Difficulty Concentrating Abnormal Motor Activity Signs and Symptoms: Restlessness Judgement: Fair Diagnostics Vital Signs (24Hr): Vital Signs - 24 hr 09/02/21 18:00 09/03/21 06:00 Temperature 98.1 F 97.7 F Pulse Rate 98 102 H Respiratory Rate 18 18 Blood Pressure 134/72 138/88 Pulse Oximetry 97 97 Oxygen Delivery Method Room Air BMI result Body Mass Index 38.4 Labs Results: 08/31/21 22:29 08/31/21 22:29 Labs: Laboratory Results - last 48 hr 09/02/21 09/03/21 09/03/21 11:26 08:07 08:07 Estimat Average Glucose 120 Hemoglobin A1c % 5.8 Magnesium 2.2 Triglycerides 329 Cholesterol 251 LDL Cholesterol, Calc 149 HDL Cholesterol 37 Vitamin B12 Folate TSH 2.42 Free T4 1.08 COVID-19 (SHIREEN) Negative COVID-19 Clin Com See Note 09/03/21 08:07 Estimat Average Glucose Hemoglobin A1c % Magnesium Triglycerides Cholesterol LDL Cholesterol, Calc HDL Cholesterol Vitamin B12 426 Folate 9.6 TSH Free T4 COVID-19 (SHIREEN) COVID-19 Clin Com Medications Medications Current Medications Acetaminophen (Acetaminophen 325 Mg Tablet) 650 mg PO Q6H PRN PRN Reason: Headache/Pain Mild Scale (1-3) Al Hydroxide/Mg Hydroxide (Magnesium Hydrox/Alum Hydrox 30 Ml Oral.Susp) 30 ml PO Q6H PRN PRN Reason: Heartburn/Nausea Last Admin: 09/02/21 20:41 Dose: 30 ml Clozapine (Clozapine 25 Mg Tablet) 50 mg PO BEDTIME LISANDRA Last Admin: 09/02/21 20:41 Dose: 50 mg Clozapine (Clozapine 100 Mg Tablet) 300 mg PO BEDTIME LISANDRA Last Admin: 09/02/21 20:41 Dose: 300 mg Hydroxyzine HCl (Hydroxyzine Hcl 25 Mg Tablet) 25 mg PO Q6H PRN PRN Reason: Anxiety Lorazepam (Lorazepam 1 Mg Tablet) 1 mg PO BID PRN PRN Reason: Anxiety Last Admin: 09/02/21 18:47 Dose: 1 mg Magnesium Hydroxide (Milk Of Magnesia 30 Ml Oral.Susp) 30 ml PO DAILY PRN PRN Reason: Constipation Melatonin (Melatonin 3 Mg Tablet) 9 mg PO BEDTIME PRN PRN Reason: sleep Trazodone HCl (Trazodone Hcl 100 Mg Tablet) 100 mg PO BEDTIME LISANDRA Last Admin: 09/02/21 20:41 Dose: 100 mg Allergies Allergies Allergy/AdvReac Type Severity Reaction Status Date / Time haloperidol [From HALDOL] AdvReac Unknown EYES Verified 09/01/21 19:59 ROLLED BACK Assessment & Plan Assessment & Plan (1) Schizoaffective disorder, depressive type: Status: Acute Code(s): F25.1 - Schizoaffective disorder, depressive type (2) Polysubstance abuse: Status: Acute Code(s): F19.10 - Other psychoactive substance abuse, uncomplicated Plan Daysi is a 36 y.o. female with history of PTSD and schizoaffective DO, depressive type. She presented to [facility] on 08/31/21 due to SI, paranoia, command AH of a man with a deep voice telling her to hurt herself, and VH of shadow people. Pt is on clozapine 350 mg (recently increased from 300 mg on 08/14/21), had been non-adherent x 3 days but re-started in the ED prior to coming to . No alcohol abuse. Utox negative.?Hx of multiple psych hospitalizations for delusional thought content and PTSD exacerbation. Plan: Pt reports she has utilized melatonin with good effect but if ?Im really anxious and hearing voices it doesnt make a difference.? Will start melatonin 9 mg QHS PRN, as pt typically takes 10 mg at home. Will continue clozapine 350 mg HS, reviewed ANC (which has been between 2.4-3.9 since 01/2021). Will continue trazodone for sleep. Pt has had previous benefit on perphenazine, may consider re-starting.? Q15 min safety checks, CV Monitor response to medications. Monitor for safety in the milieu. Discharge on stabilization. Patient seen. Chart reviewed. Discussed with team. Obtain collateral contact info?as needed 09/03/21 Continue current regime Collateral contacts I spent minutes with the patient and/or on the patient floor today, greater than?50% of which was spent counseling/coordinating care. Patient educated on: therapeutic strategies Informed Consent: understands and further education needed Reason for contiued inpatient stay Substantial Risk for: harm to self, inability to function and rapid decompensation
[2021-09-03 21:00] VITALS: BP 132/77; PULSE 101; TEMP 36.8; O2SAT 97
[2021-09-03] MEDS: cloZAPine 25 MG TABLET 50 MG PO (21:09)
[2021-09-03] MEDS: cloZAPine 100 MG TABLET 300 MG PO (21:09)
[2021-09-03] MEDS: LORazepam 1 MG TABLET PO (21:09)
[2021-09-03] MEDS: traZODone HCL 100 MG TABLET PO (21:12)
[2021-09-04] MEDS: Melatonin 3 MG TABLET 9 MG PO (01:38)
[2021-09-04 06:00] VITALS: BP 100/60; PULSE 84; TEMP 36.3; O2SAT 97
[2021-09-04] MEDS: bisacodyL 5 MG TABLET.DR 10 MG PO (15:43)
--- NOTE | 2021-09-04 16:08 | HO.PSYCHPN ---
Subjective Subjective Date of Service: 09/04/21 Reason For Visit: Schizophrenia auditory visual perceptual alteratio Subjective Notes: Conditional Voluntary Healthcare Proxy: No Guardianship: No Medical Problems Affecting Mental Status: No Interim History: Message received from Dr. Leahy regarding Clozapine who reports by history this agent worked well. Discussed if recent increase helped and was without SE. Reviewed with pt. Will increase dosing to 400 mg HS. Reports ongoing voices to suicide- whispers . Discussed concern about wt gain (hx of 80 lb gain)-will trial low dose Topiramate. Pt reports feeling safe on the unit-asks if her children can visit-ages 6 and 11-this was approved by Clara Fuentes Director of Behavioral Health. Issues of constipation addressed. Medication Compliance: Yes Side effects from medications: No Attending Groups: Yes Review of Systems Acute medical concerns: No Medical Review of Systems: unchanged Review of Systems Psychiatric: Reports anxiety, Reports auditory hallucinations and Reports suicidal ideation Mental Status Exam Mental Status Exam Patient Appearance: Appropriate Patient Orientation: Person, Place, Time and Situation Level of Consciousness: Alert Patient Behavior: Talkative and Good Eye Contact Mood Description: Depressed Affect Description: Flat Patient Cognition Impaired: No Ability to Follow Directions: Good Speech Pattern: Spontaneous Speech Memory Description: Intact Hallucinations: Auditory and Visual Delusions: Paranoid Ideation Thought Process: Distracted and Rumination Thought Content: positive for Suicidal Ideation Depressive Symptoms: Increased Anxiety, Thoughts of /Suicide and Difficulty Concentrating Abnormal Motor Activity Signs and Symptoms: Restlessness Judgement: Fair Diagnostics Vital Signs (24Hr): Vital Signs - 24 hr 09/03/21 21:00 09/04/21 06:00 Temperature 98.2 F 97.3 F Pulse Rate 101 H 84 Blood Pressure 132/77 100/60 Pulse Oximetry 97 97 Oxygen Delivery Method Room Air Room Air BMI result Body Mass Index 38.4 Labs Results: 08/31/21 22:29 08/31/21 22:29 Labs: Laboratory Results - last 48 hr 09/03/21 09/03/21 09/03/21 08:07 08:07 08:07 Estimat Average Glucose 120 Hemoglobin A1c % 5.8 Magnesium 2.2 Triglycerides 329 Cholesterol 251 LDL Cholesterol, Calc 149 HDL Cholesterol 37 Vitamin B12 426 Folate 9.6 TSH 2.42 Free T4 1.08 Medications Medications Current Medications Acetaminophen (Acetaminophen 325 Mg Tablet) 650 mg PO Q6H PRN PRN Reason: Headache/Pain Mild Scale (1-3) Al Hydroxide/Mg Hydroxide (Magnesium Hydrox/Alum Hydrox 30 Ml Oral.Susp) 30 ml PO Q6H PRN PRN Reason: Heartburn/Nausea Last Admin: 09/02/21 20:41 Dose: 30 ml Clozapine (Clozapine 100 Mg Tablet) 400 mg PO BEDTIME LISANDRA Hydroxyzine HCl (Hydroxyzine Hcl 25 Mg Tablet) 25 mg PO Q6H PRN PRN Reason: Anxiety Lorazepam (Lorazepam 1 Mg Tablet) 1 mg PO BID PRN PRN Reason: Anxiety Last Admin: 09/03/21 21:09 Dose: 1 mg Magnesium Hydroxide (Milk Of Magnesia 30 Ml Oral.Susp) 30 ml PO DAILY PRN PRN Reason: Constipation Melatonin (Melatonin 3 Mg Tablet) 9 mg PO BEDTIME PRN PRN Reason: sleep Last Admin: 09/04/21 01:38 Dose: 9 mg Topiramate (Topiramate 25 Mg Tablet) 25 mg PO DAILY LISANDRA Trazodone HCl (Trazodone Hcl 100 Mg Tablet) 100 mg PO BEDTIME LISANDRA Last Admin: 09/03/21 21:12 Dose: 100 mg Allergies Allergies Allergy/AdvReac Type Severity Reaction Status Date / Time haloperidol [From HALDOL] AdvReac Unknown EYES Verified 09/01/21 19:59 ROLLED BACK Assessment & Plan Assessment & Plan (1) Schizoaffective disorder, depressive type: Status: Acute Code(s): F25.1 - Schizoaffective disorder, depressive type (2) Polysubstance abuse: Status: Acute Code(s): F19.10 - Other psychoactive substance abuse, uncomplicated Plan Daysi is a 36 y.o. female with history of PTSD and schizoaffective DO, depressive type. She presented to [facility] on 08/31/21 due to SI, paranoia, command AH of a man with a deep voice telling her to hurt herself, and VH of shadow people. Pt is on clozapine 350 mg (recently increased from 300 mg on 08/14/21), had been non-adherent x 3 days but re-started in the ED prior to coming to . No alcohol abuse. Utox negative.?Hx of multiple psych hospitalizations for delusional thought content and PTSD exacerbation. Plan: Pt reports she has utilized melatonin with good effect but if ?Im really anxious and hearing voices it doesnt make a difference.? Will start melatonin 9 mg QHS PRN, as pt typically takes 10 mg at home. Will continue clozapine 350 mg HS, reviewed ANC (which has been between 2.4-3.9 since 01/2021). Will continue trazodone for sleep. Pt has had previous benefit on perphenazine, may consider re-starting.? Q15 min safety checks, CV Monitor response to medications. Monitor for safety in the milieu. Discharge on stabilization. Patient seen. Chart reviewed. Discussed with team. Obtain collateral contact info?as needed 09/04/21- Increase Clozapine to 400 mg HS Topiramate 25 mg daily I spent minutes with the patient and/or on the patient floor today, greater than?50% of which was spent counseling/coordinating care. Patient educated on: medication risk/benefits and therapeutic strategies Informed Consent: understands and further education needed Reason for contiued inpatient stay Substantial Risk for: harm to self, inability to function and rapid decompensation
[2021-09-04] MEDS: Magnesium Hydrox/Alum Hydrox 30 ML ORAL.SUSP PO (17:33)
[2021-09-04 18:00] VITALS: BP 122/76; PULSE 81; RESP 18; TEMP 36.7; O2SAT 99
[2021-09-04] MEDS: cloZAPine 100 MG TABLET 400 MG PO (21:26)
[2021-09-04] MEDS: traZODone HCL 100 MG TABLET PO (21:27)
[2021-09-04] MEDS: LORazepam 1 MG TABLET PO (21:53)
[2021-09-04] MEDS: hydrOXYzine HCL 25 MG TABLET PO (22:50)
[2021-09-05] MEDS: Topiramate 25 MG TABLET PO (08:42)
--- NOTE | 2021-09-05 09:17 | HO.PSYCHPN ---
Subjective Subjective Date of Service: 09/05/21 Reason For Visit: Schizophrenia auditory visual perceptual alteratio Subjective Notes: Conditional Voluntary Healthcare Proxy: No Guardianship: No Medical Problems Affecting Mental Status: No Interim History: Tolerating Clozapine increase to 400 mg HS Continues to hear voices pretty bad . Prefers not to share what they say-they are telling her to self harm. Discussed adding prn Chlorpromazine. Reports she is able to sleep (did sleep in the group room per team report) States she believes she can inform the team if she needs extra assistance with safety mgt. Visable in milieu and interactive with peers Medication Compliance: Yes Side effects from medications: No Attending Groups: Yes Review of Systems Acute medical concerns: No Medical Review of Systems: unchanged Review of Systems Psychiatric: Reports anxiety, Reports auditory hallucinations and Reports suicidal ideation Mental Status Exam Mental Status Exam Patient Appearance: Appropriate Patient Orientation: Person, Place, Time and Situation Level of Consciousness: Alert Patient Behavior: Talkative and Good Eye Contact Mood Description: Depressed Affect Description: Flat Patient Cognition Impaired: No Ability to Follow Directions: Good Speech Pattern: Spontaneous Speech Memory Description: Intact Hallucinations: Auditory and Visual Delusions: Paranoid Ideation Thought Process: Distracted and Rumination Thought Content: positive for Suicidal Ideation Depressive Symptoms: Increased Anxiety, Thoughts of /Suicide and Difficulty Concentrating Abnormal Motor Activity Signs and Symptoms: Restlessness Judgement: Fair Diagnostics Vital Signs (24Hr): Vital Signs - 24 hr 09/04/21 18:00 Temperature 98.1 F Pulse Rate 81 Respiratory Rate 18 Blood Pressure 122/76 Pulse Oximetry 99 Oxygen Delivery Method Room Air BMI result Body Mass Index 38.4 Labs Results: 08/31/21 22:29 08/31/21 22:29 Labs: Laboratory Results - last 48 hr 09/03/21 08:07 Vitamin B12 426 Folate 9.6 Medications Medications Current Medications Acetaminophen (Acetaminophen 325 Mg Tablet) 650 mg PO Q6H PRN PRN Reason: Headache/Pain Mild Scale (1-3) Al Hydroxide/Mg Hydroxide (Magnesium Hydrox/Alum Hydrox 30 Ml Oral.Susp) 30 ml PO Q6H PRN PRN Reason: Heartburn/Nausea Last Admin: 09/04/21 17:33 Dose: 30 ml Clozapine (Clozapine 100 Mg Tablet) 400 mg PO BEDTIME [facility] Last Admin: 09/04/21 21:26 Dose: 400 mg Hydroxyzine HCl (Hydroxyzine Hcl 25 Mg Tablet) 25 mg PO Q6H PRN PRN Reason: Anxiety Last Admin: 09/04/21 22:50 Dose: 25 mg Lorazepam (Lorazepam 1 Mg Tablet) 1 mg PO BID PRN PRN Reason: Anxiety Last Admin: 09/04/21 21:53 Dose: 1 mg Magnesium Hydroxide (Milk Of Magnesia 30 Ml Oral.Susp) 30 ml PO DAILY PRN PRN Reason: Constipation Melatonin (Melatonin 3 Mg Tablet) 9 mg PO BEDTIME PRN PRN Reason: sleep Last Admin: 09/04/21 01:38 Dose: 9 mg Topiramate (Topiramate 25 Mg Tablet) 25 mg PO DAILY [facility] Last Admin: 09/05/21 08:42 Dose: 25 mg Trazodone HCl (Trazodone Hcl 100 Mg Tablet) 100 mg PO BEDTIME [facility] Last Admin: 09/04/21 21:27 Dose: 100 mg Allergies Allergies Allergy/AdvReac Type Severity Reaction Status Date / Time haloperidol [From HALDOL] AdvReac Unknown EYES Verified 09/01/21 19:59 ROLLED BACK Assessment & Plan Assessment & Plan (1) Schizoaffective disorder, depressive type: Status: Acute Code(s): F25.1 - Schizoaffective disorder, depressive type (2) Polysubstance abuse: Status: Acute Code(s): F19.10 - Other psychoactive substance abuse, uncomplicated Plan Daysi is a 36 y.o. female with history of PTSD and schizoaffective DO, depressive type. She presented to [facility] ED on 08/31/21 due to SI, paranoia, command AH of a man with a deep voice telling her to hurt herself, and VH of shadow people. Pt is on clozapine 350 mg (recently increased from 300 mg on 08/14/21), had been non-adherent x 3 days but re-started in the ED prior to coming to . No alcohol abuse. Utox negative.?Hx of multiple psych hospitalizations for delusional thought content and PTSD exacerbation. Plan: Pt reports she has utilized melatonin with good effect but if ?Im really anxious and hearing voices it doesnt make a difference.? Will start melatonin 9 mg QHS PRN, as pt typically takes 10 mg at home. Will continue clozapine 350 mg HS, reviewed ANC (which has been between 2.4-3.9 since 01/2021). Will continue trazodone for sleep. Pt has had previous benefit on perphenazine, may consider re-starting.? Q15 min safety checks, CV Monitor response to medications. Monitor for safety in the milieu. Discharge on stabilization. Patient seen. Chart reviewed. Discussed with team. Obtain collateral contact info?as needed 09/04/21- Increase Clozapine to 400 mg HS Topiramate 25 mg daily 09/05/21- Chlorpromazine 25 mg qid Benztropine 1 mg bid I spent minutes with the patient and/or on the patient floor today, greater than?50% of which was spent counseling/coordinating care. Patient educated on: medication risk/benefits and therapeutic strategies Informed Consent: understands and further education needed Reason for contiued inpatient stay Substantial Risk for: harm to self, inability to function and rapid decompensation
[2021-09-05 18:00] VITALS: BP 113/89; PULSE 78; TEMP 36.8; O2SAT 99
[2021-09-05] MEDS: LORazepam 1 MG TABLET PO ×2 (18:49→21:48)
[2021-09-05] MEDS: traZODone HCL 100 MG TABLET PO (21:46)
[2021-09-05] MEDS: cloZAPine 100 MG TABLET 400 MG PO (21:47)
[2021-09-06 06:00] VITALS: BP 111/85; PULSE 97; RESP 16; TEMP 36.2; O2SAT 99
[2021-09-06] MEDS: Topiramate 25 MG TABLET PO (08:49)
--- NOTE | 2021-09-06 09:18 | P.PNPSI_ITS ---
Subjective Subjective Date of Service: 09/06/21 Reason For Visit: Schizophrenia auditory visual perceptual alteratio Subjective Notes: Conditional Voluntary Healthcare Proxy: No Guardianship: No Medical Problems Affecting Mental Status: No Interim History: Pt reports not using Chlorpromazine/Cogentin prn. Asked for help later in the day taking these as voices were increasing. She was able to take both with support. Family visited today. Pt continues to struggle with sx-Clozapine increase has not helped pt yet she reports however she does report intensity of symptoms having decreased. Fortunately, she is milieu, peer and team connected. She is interactive, asking for help and working hard to manage current sx. Medication Compliance: Yes Side effects from medications: No Attending Groups: Yes Review of Systems Acute medical concerns: No Medical Review of Systems: unchanged Review of Systems Psychiatric: Reports anxiety, Reports depression, Reports difficulty concentrating, Reports auditory hallucinations, Reports anhedonia, Reports paranoia and Reports suicidal ideation (denies) Mental Status Exam Mental Status Exam Patient Appearance: Appropriate Patient Orientation: Person, Place, Time and Situation Level of Consciousness: Alert Patient Behavior: Appropriate, Guarded, Talkative, Suspicious, Anxious, Fearful, Resistive to Care, Distractible and Good Eye Contact Mood Description: Depressed, Fearful and Anxious Affect Description: Anxious and Flat Patient Cognition Impaired: No Ability to Follow Directions: Good Speech Pattern: Spontaneous Speech Memory Description: Intact Hallucinations: Auditory Delusions: Paranoid Ideation and Present Perceptual Disturbances: Depersonalization and Derealization Thought Process: Distracted Thought Content: positive for [place], positive for Obsessional Thoughts, positive for Perseveration, positive for Preoccupation and positive for Suicidal Ideation (denies) Depressive Symptoms: Diff. Making Decisions, Thoughts of /Suicide (denies) and Difficulty Concentrating Judgement: Fair Diagnostics Vital Signs (24Hr): Vital Signs - 24 hr 09/05/21 18:00 09/06/21 06:00 Temperature 98.2 F 97.1 F Pulse Rate 78 97 Respiratory Rate 16 Blood Pressure 113/89 111/85 Pulse Oximetry 99 99 Oxygen Delivery Method Room Air BMI result Body Mass Index 38.4 Labs Results: 08/31/21 22:29 08/31/21 22:29 Medications Medications Current Medications Acetaminophen (Acetaminophen 325 Mg Tablet) 650 mg PO Q6H PRN PRN Reason: Headache/Pain Mild Scale (1-3) Al Hydroxide/Mg Hydroxide (Magnesium Hydrox/Alum Hydrox 30 Ml Oral.Susp) 30 ml PO Q6H PRN PRN Reason: Heartburn/Nausea Last Admin: 09/04/21 17:33 Dose: 30 ml Benztropine Mesylate (Benztropine Mesylate 1 Mg Tablet) 1 mg PO BID [facility] Last Admin: 09/06/21 08:56 Dose: Not Given Chlorpromazine HCl (Chlorpromazine Hcl 25 Mg Tablet) 25 mg PO QID [facility] Last Admin: 09/06/21 08:56 Dose: Not Given Clozapine (Clozapine 100 Mg Tablet) 400 mg PO BEDTIME [facility] Last Admin: 09/05/21 21:47 Dose: 400 mg Hydroxyzine HCl (Hydroxyzine Hcl 25 Mg Tablet) 25 mg PO Q6H PRN PRN Reason: Anxiety Last Admin: 09/04/21 22:50 Dose: 25 mg Magnesium Hydroxide (Milk Of Magnesia 30 Ml Oral.Susp) 30 ml PO DAILY PRN PRN Reason: Constipation Melatonin (Melatonin 3 Mg Tablet) 9 mg PO BEDTIME PRN PRN Reason: sleep Last Admin: 09/04/21 01:38 Dose: 9 mg Topiramate (Topiramate 25 Mg Tablet) 25 mg PO DAILY [facility] Last Admin: 09/06/21 08:49 Dose: 25 mg Trazodone HCl (Trazodone Hcl 100 Mg Tablet) 100 mg PO BEDTIME [facility] Last Admin: 09/05/21 21:46 Dose: 100 mg Allergies Allergies Allergy/AdvReac Type Severity Reaction Status Date / Time haloperidol [From HALDOL] AdvReac Unknown EYES Verified 09/01/21 19:59 ROLLED BACK Assessment & Plan Assessment & Plan (1) Schizoaffective disorder, depressive type: Status: Acute Code(s): F25.1 - Schizoaffective disorder, depressive type (2) Polysubstance abuse: Status: Acute Code(s): F19.10 - Other psychoactive substance abuse, uncomplicated Plan Daysi is a 36 y.o. female with history of PTSD and schizoaffective DO, depressive type. She presented [place] [facility] [place]/21 due to SI, paranoia, command AH of a man with a deep voice telling her to hurt herself, and VH of shadow people. Pt is on clozapine 350 mg (recently increased from 300 mg on 08/14/21), had been non-adherent x 3 days but re-started in the ED prior to coming to [facility]. No alcohol abuse. Utox negative.?Hx of multiple psych hospitalizations for delusional thought content and PTSD exacerbation. Plan: Pt reports she has utilized melatonin with good effect but if ?Im really anxious and hearing voices it doesnt make a difference.? Will start melatonin 9 mg QHS PRN, as pt typically takes 10 mg at home. Will continue clozapine 350 mg HS, reviewed ANC (which has been between 2.4-3.9 since 01/2021). Will continue trazodone for sleep. Pt has had previous benefit on perphenazine, may consider re-starting.? Q15 min safety checks, CV Monitor response to medications. Monitor for safety in the milieu. Discharge on stabilization. Patient seen. Chart reviewed. Discussed with team. Obtain collateral contact info?as needed 09/04/21- Increase Clozapine to 400 mg HS Topiramate 25 mg daily 09/05/21- Chlorpromazine 25 mg qid Benztropine 1 mg bid 09/06/21- Change Chlorpromazine and Benztropine to prn. I spent minutes with the patient and/or on the patient floor today, greater than?50% of which was spent counseling/coordinating care. Patient educated on: medication risk/benefits and therapeutic strategies Informed Consent: understands and further education needed Reason for contiued inpatient stay Substantial Risk for: inability to function and rapid decompensation
[2021-09-06] MEDS: chlorproMAZINE HCl 25 MG TABLET PO (16:16)
[2021-09-06 18:00] VITALS: BP 147/75; PULSE 112; RESP 16; TEMP 36.8
[2021-09-06] MEDS: traZODone HCL 100 MG TABLET PO (21:40)
[2021-09-06] MEDS: cloZAPine 100 MG TABLET 400 MG PO (21:40)
[2021-09-06] MEDS: hydrOXYzine HCL 25 MG TABLET PO (21:44)
[2021-09-07 06:00] VITALS: BP 118/86; PULSE 86; RESP 16; TEMP 36.7; O2SAT 99
--- NOTE | 2021-09-07 08:09 | PC.NURSE ---
pt refused bloodwork
[2021-09-07] MEDS: Topiramate 25 MG TABLET PO (08:54)
[2021-09-07] MEDS: Milk of Magnesia 30 ML ORAL.SUSP PO (09:44)
--- NOTE | 2021-09-07 11:35 | P.PNPSI_ITS ---
Subjective Subjective Date of Service: 09/07/21 Reason For Visit: Schizophrenia auditory visual perceptual alteratio Subjective Notes: Conditional Voluntary Healthcare Proxy: No Guardianship: No Medical Problems Affecting Mental Status: No Interim History: Patient was seen and discussed in rounds today. Records and plans were reviewed. She continues to be withdrawn with flat affect. She does hear some auditory hallucinations, whispers. The medications specially the PRNs which she has reluctantly taken have been helpful. Eating and sleeping adequately. The p.r.n. Thorazine has been taken intermittently and refused at times. No complaints or side effects. No changes were made today Review of Systems Review of Systems Yes all other systems are reviewed and are negative Psychiatric: Reports anxiety, Reports depression, Reports difficulty concentrating, Reports auditory hallucinations, Reports anhedonia, Reports paranoia and Reports suicidal ideation (denies) Mental Status Exam Mental Status Exam Patient Appearance: Appropriate Patient Orientation: Person, Place, Time and Situation Level of Consciousness: Alert Patient Behavior: Appropriate, Guarded, Talkative, Suspicious, Anxious, Fearful, Resistive to Care, Distractible and Good Eye Contact Mood Description: Depressed, Fearful and Anxious Affect Description: Anxious and Flat Patient Cognition Impaired: No Ability to Follow Directions: Good Speech Pattern: Spontaneous Speech Memory Description: Intact Hallucinations: Auditory Delusions: Paranoid Ideation and Present Perceptual Disturbances: Depersonalization and Derealization Thought Process: Distracted Thought Content: positive for [place], positive for Obsessional Thoughts, positive for Perseveration, positive for Preoccupation and positive for Suicidal Ideation (denies) Depressive Symptoms: Diff. Making Decisions, Thoughts of /Suicide (denies) and Difficulty Concentrating Judgement: Fair Diagnostics Vital Signs (24Hr): Vital Signs - 24 hr 09/06/21 18:00 09/07/21 06:00 Temperature 98.2 F 98.0 F Pulse Rate 112 H 86 Respiratory Rate 16 16 Blood Pressure 147/75 H 118/86 Pulse Oximetry 99 Oxygen Delivery Method Room Air BMI result Body Mass Index 38.4 Labs Results: 08/31/21 22:29 08/31/21 22:29 Medications Medications Current Medications Acetaminophen (Acetaminophen 325 Mg Tablet) 650 mg PO Q6H PRN PRN Reason: Headache/Pain Mild Scale (1-3) Al Hydroxide/Mg Hydroxide (Magnesium Hydrox/Alum Hydrox 30 Ml Oral.Susp) 30 ml PO Q6H PRN PRN Reason: Heartburn/Nausea Last Admin: 09/04/21 17:33 Dose: 30 ml Benztropine Mesylate (Benztropine Mesylate 1 Mg Tablet) 1 mg PO BID PRN PRN Reason: EPS Chlorpromazine HCl (Chlorpromazine Hcl 25 Mg Tablet) 25 mg PO QID PRN PRN Reason: psychosis Last Admin: 09/06/21 16:16 Dose: 25 mg Clozapine (Clozapine 100 Mg Tablet) 400 mg PO BEDTIME [facility] Last Admin: 09/06/21 21:40 Dose: 400 mg Hydroxyzine HCl (Hydroxyzine Hcl 25 Mg Tablet) 25 mg PO Q6H PRN PRN Reason: Anxiety Last Admin: 09/06/21 21:44 Dose: 25 mg Magnesium Hydroxide (Milk Of Magnesia 30 Ml Oral.Susp) 30 ml PO DAILY PRN PRN Reason: Constipation Last Admin: 09/07/21 09:44 Dose: 30 ml Melatonin (Melatonin 3 Mg Tablet) 9 mg PO BEDTIME PRN PRN Reason: sleep Last Admin: 09/04/21 01:38 Dose: 9 mg Topiramate (Topiramate 25 Mg Tablet) [address] [facility] Last Admin: 09/07/21 08:54 Dose: 25 mg Trazodone HCl (Trazodone Hcl 100 Mg Tablet) [address] [facility] Last Admin: 09/06/21 21:40 Dose: 100 mg Allergies Allergies Allergy/AdvReac Type Severity Reaction Status Date / Time haloperidol [From HALDOL] AdvReac Unknown EYES Verified 09/01/21 19:59 ROLLED BACK Assessment & Plan Assessment & Plan (1) Schizoaffective disorder, depressive type: Status: Acute Code(s): F25.1 - Schizoaffective disorder, depressive type (2) Polysubstance abuse: Status: Acute Code(s): F19.10 - Other psychoactive substance abuse, uncomplicated Plan Daysi is a 36 y.o. female with history of PTSD and schizoaffective DO, depressive type. She presented to [facility] ED on 08/31/21 due to SI, paranoia, command AH of a man with a deep voice telling her to hurt herself, and VH of shadow people. Pt is on clozapine 350 mg (recently increased from 300 mg on 08/14/21), had been non-adherent x 3 days but re-started in the ED prior to coming to [facility]. No alcohol abuse. Utox negative.?Hx of multiple psych hospitalizations for delusional thought content and PTSD exacerbation. Plan: Pt reports she has utilized melatonin with good effect but if ?Im really anxious and hearing voices it doesnt make a difference.? Will start melatonin 9 mg QHS PRN, as pt typically takes 10 mg at home. Will continue clozapine 350 mg HS, reviewed ANC (which has been between 2.4-3.9 since 01/2021). Will continue trazodone for sleep. Pt has had previous benefit on perphenazine, may consider re-starting.? Q15 min safety checks, CV Monitor response to medications. Monitor for safety in the milieu. Discharge on stabilization. Patient seen. Chart reviewed. Discussed with team. Obtain collateral contact info?as needed 09/04/21- Increase Clozapine to 400 mg HS Topiramate 25 mg daily 09/05/21- Chlorpromazine 25 mg qid Benztropine 1 mg bid 09/06/21- Change Chlorpromazine and Benztropine to prn. 09/07: Continue current regimen and plans I spent minutes with the patient and/or on the patient floor today, greater than?50% of which was spent counseling/coordinating care. Reason for contiued inpatient stay Substantial Risk for: med/psych decompensation
[2021-09-07] MEDS: Benztropine Mesylate 1 MG TABLET PO (14:40)
[2021-09-07] MEDS: chlorproMAZINE HCl 25 MG TABLET PO (14:40)
[2021-09-07 16:52] VITALS: BP 119/85; PULSE 98; RESP 20; TEMP 36.7; O2SAT 97
[2021-09-07] MEDS: cloZAPine 100 MG TABLET 400 MG PO (21:38)
[2021-09-07] MEDS: hydrOXYzine HCL 25 MG TABLET PO (21:38)
[2021-09-07] MEDS: traZODone HCL 100 MG TABLET PO (21:38)
[2021-09-07] MEDS: Melatonin 3 MG TABLET 9 MG PO (22:58)
[2021-09-08 06:00] VITALS: BP 129/79; PULSE 88; RESP 18; TEMP 36.6; O2SAT 99
[2021-09-08 07:16] LABS: Neut%MD 45.5 %; Neutrophils Absolute Auto 3.7 x10*3/uL (2.0-8.3); WBCANC 8.1 X10*3/uL
[2021-09-08] MEDS: Topiramate 25 MG TABLET PO (08:32)
--- NOTE | 2021-09-08 09:13 | HO.PSYCHPN ---
Subjective Subjective Date of Service: 09/08/21 Reason For Visit: Schizophrenia auditory visual perceptual alteratio Subjective Notes: Conditional Voluntary Healthcare Proxy: No Guardianship: No Medical Problems Affecting Mental Status: No Interim History: Patient was seen and discussed in rounds today. Records and plans were reviewed. She is mostly isolative. Some reports of visual and auditory hallucinations, hearing whispers. No head banging or self-destructive behaviors. Moderate anxiety. Eating and sleeping adequately. No complaints or side effects. No changes were made today Review of Systems Review of Systems Yes all other systems are reviewed and are negative Diagnostics Vital Signs (24Hr): Vital Signs - 24 hr 09/07/21 16:52 09/08/21 06:00 Temperature 98.1 F 97.9 F Pulse Rate 98 88 Respiratory Rate 20 18 Blood Pressure 119/85 129/79 Pulse Oximetry 97 99 Oxygen Delivery Method Room Air BMI result Body Mass Index 38.4 Labs Results: 08/31/21 22:29 08/31/21 22:29 Labs: Laboratory Results - last 48 hr 09/08/21 07:04 Absolute Neuts (auto) 3.7 Medications Medications Current Medications Acetaminophen (Acetaminophen 325 Mg Tablet) 650 mg PO Q6H PRN PRN Reason: Headache/Pain Mild Scale (1-3) Al Hydroxide/Mg Hydroxide (Magnesium Hydrox/Alum Hydrox 30 Ml Oral.Susp) 30 ml PO Q6H PRN PRN Reason: Heartburn/Nausea Last Admin: 09/04/21 17:33 Dose: 30 ml Benztropine Mesylate (Benztropine Mesylate 1 Mg Tablet) 1 mg PO BID PRN PRN Reason: EPS Last Admin: 09/07/21 14:40 Dose: 1 mg Chlorpromazine HCl (Chlorpromazine Hcl 25 Mg Tablet) 25 mg PO QID PRN PRN Reason: psychosis Last Admin: 09/07/21 14:40 Dose: 25 mg Clozapine (Clozapine 100 Mg Tablet) 400 mg PO BEDTIME [facility] Last Admin: 09/07/21 21:38 Dose: 400 mg Hydroxyzine HCl (Hydroxyzine Hcl 25 Mg Tablet) 25 mg PO Q6H PRN PRN Reason: Anxiety Last Admin: 09/07/21 21:38 Dose: 25 mg Magnesium Hydroxide (Milk Of Magnesia 30 Ml Oral.Susp) 30 ml PO DAILY PRN PRN Reason: Constipation Last Admin: 09/07/21 09:44 Dose: 30 ml Melatonin (Melatonin 3 Mg Tablet) 9 mg PO BEDTIME PRN PRN Reason: sleep Last Admin: 09/07/21 22:58 Dose: 9 mg Topiramate (Topiramate 25 Mg Tablet) 25 mg PO DAILY [facility] Last Admin: 09/08/21 08:32 Dose: 25 mg Trazodone HCl (Trazodone Hcl 100 Mg Tablet) 100 mg PO BEDTIME [facility] Last Admin: 09/07/21 21:38 Dose: 100 mg Allergies Allergies Allergy/AdvReac Type Severity Reaction Status Date / Time haloperidol [From HALDOL] AdvReac Unknown EYES Verified 09/01/21 19:59 ROLLED BACK Assessment & Plan Assessment & Plan (1) Schizoaffective disorder, depressive type: Status: Acute Code(s): F25.1 - Schizoaffective disorder, depressive type (2) Polysubstance abuse: Status: Acute Code(s): F19.10 - Other psychoactive substance abuse, uncomplicated Plan Daysi is a 36 y.o. female with history of PTSD and schizoaffective DO, depressive type. She presented to [facility] on 08/31/21 due to SI, paranoia, command AH of a man with a deep voice telling her to hurt herself, and VH of shadow people. Pt is on clozapine 350 mg (recently increased from 300 mg on 08/14/21), had been non-adherent x 3 days but re-started in the ED prior to coming to . No alcohol abuse. Utox negative.?Hx of multiple psych hospitalizations for delusional thought content and PTSD exacerbation. Plan: Pt reports she has utilized melatonin with good effect but if ?Im really anxious and hearing voices it doesnt make a difference.? Will start melatonin 9 mg QHS PRN, as pt typically takes 10 mg at home. Will continue clozapine 350 mg HS, reviewed ANC (which has been between 2.4-3.9 since 01/2021). Will continue trazodone for sleep. Pt has had previous benefit on perphenazine, may consider re-starting.? Q15 min safety checks, CV Monitor response to medications. Monitor for safety in the milieu. Discharge on stabilization. Patient seen. Chart reviewed. Discussed with team. Obtain collateral contact info?as needed 09/04/21- Increase Clozapine to 400 mg HS Topiramate 25 mg daily 09/05/21- Chlorpromazine 25 mg qid Benztropine 1 mg bid 09/06/21- Change Chlorpromazine and Benztropine to prn. 09/07: Continue current regimen and plans 09/08: Continue current plans and regimen I spent minutes with the patient and/or on the patient floor today, greater than?50% of which was spent counseling/coordinating care. Reason for contiued inpatient stay Substantial Risk for: med/psych decompensation
[2021-09-08] MEDS: Benztropine Mesylate 1 MG TABLET PO (13:34)
[2021-09-08] MEDS: chlorproMAZINE HCl 25 MG TABLET PO (13:34)
[2021-09-08 16:31] VITALS: BP 133/69; PULSE 89; RESP 20; TEMP 36.7; O2SAT 99
[2021-09-08 19:01] VITALS: BP 131/94; PULSE 95
[2021-09-08] MEDS: traZODone HCL 100 MG TABLET PO (21:33)
[2021-09-08] MEDS: cloZAPine 100 MG TABLET 400 MG PO (21:33)
[2021-09-08] MEDS: hydrOXYzine HCL 25 MG TABLET PO (21:33)
[2021-09-09 06:00] VITALS: BP 127/86; PULSE 91; RESP 18; TEMP 36.8; O2SAT 99
[2021-09-09] MEDS: Topiramate 25 MG TABLET PO (08:44)
[2021-09-09] MEDS: Docusate Sodium 100 MG CAPSULE PO ×2 (12:43→21:41)
[2021-09-09] MEDS: Magnesium Citrate 300 ML SOLUTION PO (16:32)
[2021-09-09 18:00] VITALS: BP 114/75; PULSE 99; TEMP 36.5
--- NOTE | 2021-09-09 19:59 | P.PNPSI_ITS ---
Subjective Subjective Date of Service: 09/09/21 Reason For Visit: Schizophrenia auditory visual perceptual alteratio Subjective Notes: Conditional Voluntary Healthcare Proxy: No Guardianship: No Medical Problems Affecting Mental Status: No Interim History: Team reports pt reports ongoing sx of perceptual alterations and feeling sedation from medications. Pt reports voices are whispers or nothing . States prn has been helpful. Discussed some dissociative type feelings, feeling like I am not inside my body . Finds it difficult to focus, think. Team reports pt is beginning to discuss her feelings about parenting with current symptoms and describes feeling self-conscious when in public with the children, asking herself how she can be more present for the children. Medication Compliance: Yes Side effects from medications: Yes (reports some sedation) Attending Groups: Yes Review of Systems Acute medical concerns: No Medical Review of Systems: unchanged Review of Systems Psychiatric: Reports anxiety, Reports depression, Reports difficulty concentrating, Reports auditory hallucinations (whispers), Reports anhedonia and Reports paranoia Mental Status Exam Mental Status Exam Patient Appearance: Appropriate Patient Orientation: Person, Place, Time and Situation Level of Consciousness: Alert Patient Behavior: Talkative and Good Eye Contact Mood Description: Withdrawn and Flat Affect Description: Flat Patient Cognition Impaired: No Ability to Follow Directions: Good Speech Pattern: Spontaneous Speech Memory Description: Intact Hallucinations: Auditory (whispers) Perceptual Disturbances: Depersonalization and Derealization Thought Process: Rumination Thought Content: positive for Perseveration and positive for Suicidal Ideation (denies) Depressive Symptoms: Thoughts of /Suicide (denies) and Difficulty Concentrating Judgement: Good Diagnostics Vital Signs (24Hr): Vital Signs - 24 hr 09/09/21 06:00 Temperature 98.2 F Pulse Rate 91 Respiratory Rate 18 Blood Pressure 127/86 Pulse Oximetry 99 BMI result Body Mass Index 38.4 Labs Results: 08/31/21 22:29 08/31/21 22:29 Labs: Laboratory Results - last 48 hr 09/08/21 07:04 Absolute Neuts (auto) 3.7 Medications Medications Current Medications Acetaminophen (Acetaminophen 325 Mg Tablet) 650 mg PO Q6H PRN PRN Reason: Headache/Pain Mild Scale (1-3) Al Hydroxide/Mg Hydroxide (Magnesium Hydrox/Alum Hydrox 30 Ml Oral.Susp) 30 ml PO Q6H PRN PRN Reason: Heartburn/Nausea Last Admin: 09/04/21 17:33 Dose: 30 ml Benztropine Mesylate (Benztropine Mesylate 1 Mg Tablet) 1 mg PO BID PRN PRN Reason: EPS Last Admin: 09/08/21 13:34 Dose: 1 mg Chlorpromazine HCl (Chlorpromazine Hcl 25 Mg Tablet) 25 mg PO QID PRN PRN Reason: psychosis Last Admin: 09/08/21 13:34 Dose: 25 mg Clozapine (Clozapine 100 Mg Tablet) 400 mg PO BEDTIME LISANDRA Last Admin: 09/08/21 21:33 Dose: 400 mg Docusate Sodium (Docusate Sodium 100 Mg Capsule) 100 mg PO BID LISANDRA Last Admin: 09/09/21 12:43 Dose: 100 mg Hydroxyzine HCl (Hydroxyzine Hcl 25 Mg Tablet) 25 mg PO Q6H PRN PRN Reason: Anxiety Last Admin: 09/08/21 21:33 Dose: 25 mg Magnesium Hydroxide (Milk Of Magnesia 30 Ml Oral.Susp) 30 ml PO DAILY PRN PRN Reason: Constipation Last Admin: 09/07/21 09:44 Dose: 30 ml Melatonin (Melatonin 3 Mg Tablet) 9 mg PO BEDTIME PRN PRN Reason: sleep Last Admin: 09/07/21 22:58 Dose: 9 mg Topiramate (Topiramate 25 Mg Tablet) 25 mg PO DAILY LISANDRA Last Admin: 09/09/21 08:44 Dose: 25 mg Trazodone HCl (Trazodone Hcl 100 Mg Tablet) 100 mg PO BEDTIME LISANDRA Last Admin: 09/08/21 21:33 Dose: 100 mg Allergies Allergies Allergy/AdvReac Type Severity Reaction Status Date / Time haloperidol [From HALDOL] AdvReac Unknown EYES Verified 09/01/21 19:59 ROLLED BACK Assessment & Plan Assessment & Plan (1) Schizoaffective disorder, depressive type: Status: Acute Code(s): F25.1 - Schizoaffective disorder, depressive type (2) Polysubstance abuse: Status: Acute Code(s): F19.10 - Other psychoactive substance abuse, uncomplicated Plan Daysi is a 36 y.o. female with history of PTSD and schizoaffective DO, depressive type. She presented to [facility] [place] ED on 08/31/21 due to SI, paranoia, command AH of a man with a deep voice telling her to hurt herself, and VH of shadow people. Pt is on clozapine 350 mg (recently increased from 300 mg on 08/14/21), had been non-adherent x 3 days but re-started in the ED prior to coming to . No alcohol abuse. Utox negative.?Hx of multiple psych hospitalizations for delusional thought content and PTSD exacerbation. Plan: Pt reports she has utilized melatonin with good effect but if ?Im really anxious and hearing voices it doesnt make a difference.? Will start melatonin 9 mg QHS PRN, as pt typically takes 10 mg at home. Will continue clozapine 350 mg HS, reviewed ANC (which has been between 2.4-3.9 since 01/2021). Will continue trazodone for sleep. Pt has had previous benefit on perphenazine, may consider re-starting.? Q15 min safety checks, CV Monitor response to medications. Monitor for safety in the milieu. Discharge on stabilization. Patient seen. Chart reviewed. Discussed with team. Obtain collateral contact info?as needed 09/04/21- Increase Clozapine to 400 mg HS Topiramate 25 mg daily 09/05/21- Chlorpromazine 25 mg qid Benztropine 1 mg bid 09/06/21- Change Chlorpromazine and Benztropine to prn. 09/07: Continue current regimen and plans 09/08: Continue current plans and regimen 09/09/21: Continue current regime I spent minutes with the patient and/or on the patient floor today, greater than?50% of which was spent counseling/coordinating care. Reason for contiued inpatient stay Substantial Risk for: rapid decompensation
[2021-09-09] MEDS: cloZAPine 100 MG TABLET 400 MG PO (21:41)
[2021-09-09] MEDS: chlorproMAZINE HCl 25 MG TABLET PO (21:42)
[2021-09-09] MEDS: Benztropine Mesylate 1 MG TABLET PO (21:44)
[2021-09-09] MEDS: traZODone HCL 100 MG TABLET PO (21:44)
[2021-09-10 06:39] VITALS: BP 97/53; PULSE 90; RESP 16; TEMP 36.3; O2SAT 96
[2021-09-10] MEDS: Docusate Sodium 100 MG CAPSULE PO ×2 (09:30→21:37)
[2021-09-10] MEDS: Topiramate 25 MG TABLET PO (09:30)
[2021-09-10] MEDS: Magnesium Hydrox/Alum Hydrox 30 ML ORAL.SUSP PO (15:30)
[2021-09-10] MEDS: Milk of Magnesia 30 ML ORAL.SUSP PO (15:30)
[2021-09-10] MEDS: LORazepam 1 MG TABLET PO (16:53)
[2021-09-10 18:00] VITALS: BP 126/82; PULSE 81; RESP 16; TEMP 36.6; O2SAT 99
--- NOTE | 2021-09-10 18:31 | P.PNPSI_ITS ---
Subjective Subjective Date of Service: 09/10/21 Reason For Visit: Schizophrenia auditory visual perceptual alteratio Subjective Notes: Conditional Voluntary Healthcare Proxy: No Guardianship: No Medical Problems Affecting Mental Status: No Interim History: Pt discussed less SE of sedation from Chlorpromazine, reports efficacy, also believes recent increases in Clozapine are beginning to take effect. Discussing discharge-she is feeling some improvement she reports. Team reports pt continues to be guarded in presentation. Medication Compliance: Yes Side effects from medications: Yes (decreasing sedation) Attending Groups: Yes Review of Systems Acute medical concerns: No Medical Review of Systems: unchanged Review of Systems Psychiatric: Reports anxiety, Reports depression, Reports difficulty concentrating, Reports auditory hallucinations (whispers), Reports anhedonia and Reports paranoia Mental Status Exam Mental Status Exam Patient Appearance: Appropriate Patient Orientation: Person, Place, Time and Situation Level of Consciousness: Alert Patient Behavior: Talkative and Good Eye Contact Mood Description: Withdrawn and Flat Affect Description: Flat Patient Cognition Impaired: No Ability to Follow Directions: Good Speech Pattern: Spontaneous Speech Memory Description: Intact Hallucinations: Auditory (whispers) Perceptual Disturbances: Depersonalization and Derealization Thought Process: Rumination Thought Content: positive for Perseveration and positive for Suicidal Ideation (denies) Depressive Symptoms: Thoughts of /Suicide (denies) and Difficulty Concentrating Judgement: Good Diagnostics Vital Signs (24Hr): Vital Signs - 24 hr 09/10/21 06:39 Temperature 97.3 F Pulse Rate 90 Respiratory Rate 16 Blood Pressure 97/53 L Pulse Oximetry 96 Oxygen Delivery Method Room Air BMI result Body Mass Index 38.4 Labs Results: 08/31/21 22:29 08/31/21 22:29 Medications Medications Current Medications Acetaminophen (Acetaminophen 325 Mg Tablet) 650 mg PO Q6H PRN PRN Reason: Headache/Pain Mild Scale (1-3) Al Hydroxide/Mg Hydroxide (Magnesium Hydrox/Alum Hydrox 30 Ml Oral.Susp) 30 ml PO Q6H PRN PRN Reason: Heartburn/Nausea Last Admin: 09/10/21 15:30 Dose: 30 ml Benztropine Mesylate (Benztropine Mesylate 1 Mg Tablet) 1 mg PO BID PRN PRN Reason: EPS Last Admin: 09/09/21 21:44 Dose: 1 mg Chlorpromazine HCl (Chlorpromazine Hcl 25 Mg Tablet) 25 mg PO QID PRN PRN Reason: psychosis Last Admin: 09/09/21 21:42 Dose: 25 mg Clozapine (Clozapine 100 Mg Tablet) 400 mg PO BEDTIME [facility] Last Admin: 09/09/21 21:41 Dose: 400 mg Docusate Sodium (Docusate Sodium 100 Mg Capsule) 100 mg PO BID [facility] Last Admin: 09/10/21 09:30 Dose: 100 mg Hydroxyzine HCl (Hydroxyzine Hcl 25 Mg Tablet) 25 mg PO Q6H PRN PRN Reason: Anxiety Last Admin: 09/08/21 21:33 Dose: 25 mg Lorazepam (Lorazepam 1 Mg Tablet) 1 mg PO Q4H PRN PRN Reason: Anxiety Last Admin: 09/10/21 16:53 Dose: 1 mg Magnesium Hydroxide (Milk Of Magnesia 30 Ml Oral.Susp) 30 ml PO DAILY PRN PRN Reason: Constipation Last Admin: 09/10/21 15:30 Dose: 30 ml Melatonin (Melatonin 3 Mg Tablet) 9 mg PO BEDTIME PRN PRN Reason: sleep Last Admin: 09/07/21 22:58 Dose: 9 mg Topiramate (Topiramate 25 Mg Tablet) 25 mg PO DAILY [facility] Last Admin: 09/10/21 09:30 Dose: 25 mg Trazodone HCl (Trazodone Hcl 100 Mg Tablet) 100 mg PO BEDTIME [facility] Last Admin: 09/09/21 21:44 Dose: 100 mg Allergies Allergies Allergy/AdvReac Type Severity Reaction Status Date / Time haloperidol [From HALDOL] AdvReac Unknown EYES Verified 09/01/21 19:59 ROLLED BACK Assessment & Plan Assessment & Plan (1) Schizoaffective disorder, depressive type: Status: Acute Code(s): F25.1 - Schizoaffective disorder, depressive type (2) Polysubstance abuse: Status: Acute Code(s): F19.10 - Other psychoactive substance abuse, uncomplicated Plan Daysi is a 36 y.o. female with history of PTSD and schizoaffective DO, depressive type. She presented to [facility] [place] ED on 08/31/21 due to SI, paranoia, command AH of a man with a deep voice telling her to hurt herself, and VH of shadow people. Pt is on clozapine 350 mg (recently increased from 300 mg on 08/14/21), had been non-adherent x 3 days but re-started in the ED prior to coming to [facility]. No alcohol abuse. Utox negative.?Hx of multiple psych hospitalizations for delusional thought content and PTSD exacerbation. Plan: Pt reports she has utilized melatonin with good effect but if ?Im really anxious and hearing voices it doesnt make a difference.? Will start melatonin 9 mg QHS PRN, as pt typically takes 10 mg at home. Will continue clozapine 350 mg HS, reviewed ANC (which has been between 2.4-3.9 since 01/2021). Will continue trazodone for sleep. Pt has had previous benefit on perphenazine, may consider re-starting.? Q15 min safety checks, CV Monitor response to medications. Monitor for safety in the milieu. Discharge on stabilization. Patient seen. Chart reviewed. Discussed with team. Obtain collateral contact info?as needed 09/04/21- Increase Clozapine to 400 mg HS Topiramate 25 mg daily 09/05/21- Chlorpromazine 25 mg qid Benztropine 1 mg bid 09/06/21- Change Chlorpromazine and Benztropine to prn. 09/07: Continue current regimen and plans 09/08: Continue current plans and regimen 09/10/21: Continue current regime I spent minutes with the patient and/or on the patient floor today, greater than?50% of which was spent counseling/coordinating care. Reason for contiued inpatient stay Substantial Risk for: inability to function and rapid decompensation
[2021-09-10] MEDS: traZODone HCL 100 MG TABLET PO (21:37)
[2021-09-10] MEDS: cloZAPine 100 MG TABLET 400 MG PO (21:37)
[2021-09-10] MEDS: Docusate Sodium 100 MG CAPSULE 50 MG PO (22:31)
[2021-09-10] MEDS: polyethylene glycoL 3350 17 GM POWD.PACK PO (22:31)
[2021-09-10] MEDS: Melatonin 3 MG TABLET 9 MG PO (22:40)
[2021-09-11 06:00] VITALS: BP 114/59; PULSE 90; RESP 18; TEMP 36.6; O2SAT 97
[2021-09-11] MEDS: Topiramate 25 MG TABLET PO (08:53)
[2021-09-11] MEDS: Docusate Sodium 100 MG CAPSULE PO ×2 (10:33→21:32)
[2021-09-11] MEDS: chlorproMAZINE HCl 25 MG TABLET PO (15:56)
[2021-09-11] MEDS: Benztropine Mesylate 1 MG TABLET PO (15:56)
[2021-09-11] MEDS: traZODone HCL 100 MG TABLET PO (21:32)
[2021-09-11] MEDS: cloZAPine 100 MG TABLET 400 MG PO (21:32)
[2021-09-11] MEDS: LORazepam 1 MG TABLET PO (21:37)
[2021-09-11 21:40] VITALS: BP 119/74; PULSE 102; TEMP 37.1; O2SAT 99
--- NOTE | 2021-09-11 23:00 | P.PNPSI_ITS ---
Subjective Subjective Date of Service: 09/11/21 Reason For Visit: Schizophrenia auditory visual perceptual alteratio Subjective Notes: Noble Warning Interim History: Patient seen and discussed with team. Patient evaluated today and upon interview she reports she had a BM this morning. Feeling pretty good. Notices she has a Zombie brain sometimes. On Topamax for appetite x 3-4 days, still notices urge to eat at night. Energy is okay. Sleep is good. Says thorazine helps. States her whispers dont bother me, I just deal with it. Says her voices are saying things like people are talking about me, hears sirens, paranoid about swage toolsetter, sometimes thinks staff ta lking about her behind the desk. Feels safe. Denies SI/SIB/HI upon inquiry. Denies irritability or assaultive ideation. Medication Compliance: Yes Side effects from medications: No Attending Groups: Intermittent Review of Systems Acute medical concerns: No Medical Review of Systems: unchanged Mental Status Exam Mental Status Exam Narrative: Patient Appearance: Appropriate Patient Orientation: Person, Place, Time and Situation Level of Consciousness: Alert Patient Behavior: Talkative and Good Eye Contact Mood Description: Withdrawn and Flat Affect Description: Flat Patient Cognition Impaired: No Ability to Follow Directions: Good Speech Pattern: Spontaneous Speech Memory Description: Intact Hallucinations: Auditory (whispers) Perceptual Disturbances: Depersonalization and Derealization Thought Process: Rumination Thought Content: positive for Perseveration and positive for Suicidal Ideation (denies) Depressive Symptoms: Thoughts of /Suicide (denies) and Difficulty Concentrating Judgement: Good Diagnostics Vital Signs (24Hr): Vital Signs - 24 hr 09/11/21 06:00 09/11/21 21:40 Temperature 97.9 F 98.7 F Pulse Rate 90 102 H Respiratory Rate 18 Blood Pressure 114/59 L 119/74 Pulse Oximetry 97 99 Oxygen Delivery Method Room Air Room Air BMI result Body Mass Index 38.4 Labs Results: 08/31/21 22:29 08/31/21 22:29 Imaging Radiology Impressions: ITS Impressions KUB X-Ray 09/10/21 22:32 IMPRESSION: 1. Nonobstructive bowel gas pattern. Mild to moderate colonic and rectal stool burden. 2. Horizontal orientation of the IUD overlying the mid pelvis. This could be secondary to uterine tilt however the location cannot be determined on this study. Confirmation with pelvic ultrasound is recommended. Medications Medications Current Medications Acetaminophen (Acetaminophen 325 Mg Tablet) 650 mg PO Q6H PRN PRN Reason: Headache/Pain Mild Scale (1-3) Al Hydroxide/Mg Hydroxide (Magnesium Hydrox/Alum Hydrox 30 Ml Oral.Susp) 30 ml PO Q6H PRN PRN Reason: Heartburn/Nausea Last Admin: 09/10/21 15:30 Dose: 30 ml Benztropine Mesylate (Benztropine Mesylate 1 Mg Tablet) 1 mg PO BID PRN PRN Reason: EPS Last Admin: 09/11/21 15:56 Dose: 1 mg Chlorpromazine HCl (Chlorpromazine Hcl 25 Mg Tablet) 25 mg PO QID PRN PRN Reason: psychosis Last Admin: 09/11/21 15:56 Dose: 25 mg Clozapine (Clozapine 100 Mg Tablet) 400 mg PO BEDTIME LISANDRA Last Admin: 09/11/21 21:32 Dose: 400 mg Docusate Sodium (Docusate Sodium 100 Mg Capsule) 100 mg PO BID LISANDRA Last Admin: 09/11/21 21:32 Dose: 100 mg Hydroxyzine HCl (Hydroxyzine Hcl 25 Mg Tablet) 25 mg PO Q6H PRN PRN Reason: Anxiety Last Admin: 09/08/21 21:33 Dose: 25 mg Lorazepam (Lorazepam 1 Mg Tablet) 1 mg PO Q4H PRN PRN Reason: Anxiety Last Admin: 09/11/21 21:37 Dose: 1 mg Magnesium Hydroxide (Milk Of Magnesia 30 Ml Oral.Susp) 30 ml PO DAILY PRN PRN Reason: Constipation Last Admin: 09/10/21 15:30 Dose: 30 ml Melatonin (Melatonin 3 Mg Tablet) 9 mg PO BEDTIME PRN PRN Reason: sleep Last Admin: 09/10/21 22:40 Dose: 9 mg Polyethylene Glycol (Polyethylene Glycol 3350 17 Gm Powd.Pack) 17 gm PO BID LISANDRA Last Admin: 09/11/21 21:39 Dose: Not Given Trazodone HCl (Trazodone Hcl 100 Mg Tablet) 100 mg PO BEDTIME LISANDRA Last Admin: 09/11/21 21:32 Dose: 100 mg Allergies Allergies Allergy/AdvReac Type Severity Reaction Status Date / Time haloperidol [From HALDOL] AdvReac Unknown EYES Verified 09/01/21 19:59 ROLLED BACK Assessment & Plan Assessment & Plan (1) Schizoaffective disorder, depressive type: Status: Acute Code(s): F25.1 - Schizoaffective disorder, depressive type (2) Polysubstance abuse: Status: Acute Code(s): F19.10 - Other psychoactive substance abuse, uncomplicated Plan Daysi is a 36 y.o. female with history of PTSD and schizoaffective DO, depressive type. She presented to [facility] [place] ED on 08/31/21 due to SI, paranoia, command AH of a man with a deep voice telling her to hurt herself, and VH of shadow people. Pt is on clozapine 350 mg (recently increased from 300 mg on 08/14/21), had been non-adherent x 3 days but re-started in the ED prior to coming to . No alcohol abuse. Utox negative.?Hx of multiple psych hospitalizations for delusional thought content and PTSD exacerbation. Plan: Pt reports she has utilized melatonin with good effect but if ?Im really anxious and hearing voices it doesnt make a difference.? Will start melatonin 9 mg QHS PRN, as pt typically takes 10 mg at home. Will continue clozapine 350 mg HS, reviewed ANC (which has been between 2.4-3.9 since 01/2021). Will continue trazodone for sleep. Pt has had previous benefit on perphenazine, may consider re-starting.? Q15 min safety checks, CV Monitor response to medications. Monitor for safety in the milieu. Discharge on stabilization. Patient seen. Chart reviewed. Discussed with team. Obtain collateral contact info?as needed 09/04/21- Increase Clozapine to 400 mg HS ? Topiramate 25 mg daily 09/05/21- Chlorpromazine 25 mg qid ? Benztropine 1 mg bid 09/06/21- Change Chlorpromazine and Benztropine to prn. 09/07:? Continue current regimen and plans 09/08: Continue current plans and regimen 09/10/21: Continue current regime 09/11/21: D/C topamax, denies efficacy, notices feeling like a zombie I spent minutes with the patient and/or on the patient floor today, greater than?50% of which was spent counseling/coordinating care. Patient educated on: medication risk/benefits Reason for contiued inpatient stay Substantial Risk for: med/psych decompensation
[2021-09-12 06:28] VITALS: BP 109/56; PULSE 94; RESP 18; TEMP 36.3; O2SAT 96
[2021-09-12 07:00] VITALS: BMI 39.1
[2021-09-12] MEDS: Docusate Sodium 100 MG CAPSULE PO ×2 (13:21→21:27)
[2021-09-12] MEDS: Benztropine Mesylate 1 MG TABLET PO (13:21)
[2021-09-12] MEDS: chlorproMAZINE HCl 25 MG TABLET PO (13:21)
--- NOTE | 2021-09-12 16:16 | HO.PSYCHPN ---
Subjective Subjective Date of Service: 09/12/21 Reason For Visit: Schizophrenia auditory visual perceptual alteratio Subjective Notes: Conditional Voluntary Healthcare Proxy: No Guardianship: No Medical Problems Affecting Mental Status: No Interim History: Reports increase in anxiety, seeing shadows, hearing voices to self-harm, episode of head banging per team 09/10 lester. Voices telling her not to take medications. Reports night time shadow people . Fears children and will while sleeping. Night is a difficult time. Fears outings-with increase in paranoia, overwhelmed with excess stimuli, feeling police are coming after her if she is out (knows it is not valid but feels it in her body). Unable to tolerate large outings. Discussed augmentation of Clozapine as recent increases have not seemed to help. Review of JOSEFINA Zaidi Risperdal. Will trial Abilify Medication Compliance: Yes Side effects from medications: No Attending Groups: Yes Review of Systems Acute medical concerns: No Medical Review of Systems: unchanged Review of Systems Reports behavioral changes Psychiatric: Reports anxiety, Reports behavioral changes, Reports difficulty concentrating, Reports auditory hallucinations, Reports hopelessness, Reports anhedonia, Reports paranoia, Reports visual hallucinations and Reports hallucinations Mental Status Exam Mental Status Exam Patient Appearance: Appropriate Patient Orientation: Person, Place, Time and Situation Level of Consciousness: Alert Patient Behavior: Guarded, Talkative, Suspicious and Good Eye Contact Mood Description: Constricted, Fearful, Anxious and Apprehensive Affect Description: Constricted Patient Cognition Impaired: No Ability to Follow Directions: Good Speech Pattern: Spontaneous Speech Memory Description: Intact Hallucinations: Auditory and Visual Delusions: Paranoid Ideation and Present Perceptual Disturbances: Depersonalization, Derealization and Hallucinations Thought Process: Distracted and Rumination Thought Content: positive for [place], positive for Circumstantial, positive for Perseveration, positive for Preoccupation and positive for Thought Blocking Depressive Symptoms: Increased Anxiety, Diff. Making Decisions, Low Self Esteem and Difficulty Concentrating Abnormal Motor Activity Signs and Symptoms: Restlessness Judgement: Poor Diagnostics Vital Signs (24Hr): Vital Signs - 24 hr 09/11/21 21:40 09/12/21 06:28 Temperature 98.7 F 97.3 F Pulse Rate 102 H 94 Respiratory Rate 18 Blood Pressure 119/74 109/56 L Pulse Oximetry 99 96 Oxygen Delivery Method Room Air Room Air BMI result Body Mass Index 39.1 Labs Results: 08/31/21 22:29 08/31/21 22:29 Imaging Radiology Impressions: ITS Impressions KUB X-Ray 09/10/21 22:32 IMPRESSION: 1. Nonobstructive bowel gas pattern. Mild to moderate colonic and rectal stool burden. 2. Horizontal orientation of the IUD overlying the mid pelvis. This could be secondary to uterine tilt however the location cannot be determined on this study. Confirmation with pelvic ultrasound is recommended. Medications Medications Current Medications Acetaminophen (Acetaminophen 325 Mg Tablet) 650 mg PO Q6H PRN PRN Reason: Headache/Pain Mild Scale (1-3) Al Hydroxide/Mg Hydroxide (Magnesium Hydrox/Alum Hydrox 30 Ml Oral.Susp) 30 ml PO Q6H PRN PRN Reason: Heartburn/Nausea Last Admin: 09/10/21 15:30 Dose: 30 ml Aripiprazole (Aripiprazole 5 Mg Tablet) 5 mg PO BEDTIME LISANDRA Benztropine Mesylate (Benztropine Mesylate 1 Mg Tablet) 1 mg PO BID PRN PRN Reason: EPS Last Admin: 09/12/21 13:21 Dose: 1 mg Chlorpromazine HCl (Chlorpromazine Hcl 25 Mg Tablet) 25 mg PO QID PRN PRN Reason: psychosis Last Admin: 09/12/21 13:21 Dose: 25 mg Clozapine (Clozapine 100 Mg Tablet) 400 mg PO BEDTIME LISANDRA Last Admin: 09/11/21 21:32 Dose: 400 mg Docusate Sodium (Docusate Sodium 100 Mg Capsule) 100 mg PO BID LISANDRA Last Admin: 09/12/21 13:21 Dose: 100 mg Hydroxyzine HCl (Hydroxyzine Hcl 25 Mg Tablet) 25 mg PO Q6H PRN PRN Reason: Anxiety Last Admin: 09/08/21 21:33 Dose: 25 mg Lorazepam (Lorazepam 1 Mg Tablet) 1 mg PO Q4H PRN PRN Reason: Anxiety Last Admin: 09/11/21 21:37 Dose: 1 mg Magnesium Hydroxide (Milk Of Magnesia 30 Ml Oral.Susp) 30 ml PO DAILY PRN PRN Reason: Constipation Last Admin: 09/10/21 15:30 Dose: 30 ml Melatonin (Melatonin 3 Mg Tablet) 9 mg PO BEDTIME PRN PRN Reason: sleep Last Admin: 09/10/21 22:40 Dose: 9 mg Polyethylene Glycol (Polyethylene Glycol 3350 17 Gm Powd.Pack) 17 gm PO BID [facility] Last Admin: 09/12/21 08:37 Dose: Not Given Trazodone HCl (Trazodone Hcl 100 Mg Tablet) 100 mg PO BEDTIME [facility] Last Admin: 09/11/21 21:32 Dose: 100 mg Allergies Allergies Allergy/AdvReac Type Severity Reaction Status Date / Time haloperidol [From HALDOL] AdvReac Unknown EYES Verified 09/01/21 19:59 ROLLED BACK Assessment & Plan Assessment & Plan (1) Schizoaffective disorder, depressive type: Status: Acute Code(s): F25.1 - Schizoaffective disorder, depressive type (2) Polysubstance abuse: Status: Acute Code(s): F19.10 - Other psychoactive substance abuse, uncomplicated Plan Daysi is a 36 y.o. female with history of PTSD and schizoaffective DO, depressive type. [place] [facility] [place] due to SI, paranoia, command AH of a man with a deep voice telling her to hurt herself, and VH of shadow people. Pt is on clozapine 350 mg (recently increased from 300 mg on 08/14/21), had been non-adherent x 3 days but re-started in the ED prior to coming to . No alcohol abuse. Utox negative.?Hx of multiple psych hospitalizations for delusional thought content and PTSD exacerbation. Plan: Pt reports she has utilized melatonin with good effect but if ?Im really anxious and hearing voices it doesnt make a difference.? Will start melatonin 9 mg QHS PRN, as pt typically takes 10 mg at home. Will continue clozapine 350 mg HS, reviewed ANC (which has been between 2.4-3.9 since 01/2021). Will continue trazodone for sleep. Pt has had previous benefit on perphenazine, may consider re-starting.? Q15 min safety checks, CV Monitor response to medications. Monitor for safety in the milieu. Discharge on stabilization. Patient seen. Chart reviewed. Discussed with team. Obtain collateral contact info?as needed 09/04/21- Increase Clozapine to 400 mg HS Topiramate 25 mg daily 09/05/21- Chlorpromazine 25 mg qid Benztropine 1 mg bid 09/06/21- Change Chlorpromazine and Benztropine to prn. 09/07: Continue current regimen and plans 09/08: Continue current plans and regimen 09/10/21: Continue current regime 09/12/21: Abilify 10 mg hs I spent minutes with the patient and/or on the patient floor today, greater than?50% of which was spent counseling/coordinating care. Patient educated on: medication risk/benefits and therapeutic strategies Informed Consent: understands and further education needed Reason for contiued inpatient stay Substantial Risk for: rapid decompensation
--- NOTE | 2021-09-12 17:54 | HO.PSYCHPN ---
Subjective Subjective Reason For Visit: Schizophrenia auditory visual perceptual alteratio Diagnostics Vital Signs (24Hr): Vital Signs - 24 hr 09/11/21 21:40 09/12/21 06:28 Temperature 98.7 F 97.3 F Pulse Rate 102 H 94 Respiratory Rate 18 Blood Pressure 119/74 109/56 L Pulse Oximetry 99 96 Oxygen Delivery Method Room Air Room Air BMI result Body Mass Index 39.1 Labs Results: 08/31/21 22:29 08/31/21 22:29 Imaging Radiology Impressions: ITS Impressions KUB X-Ray 09/10/21 22:32 IMPRESSION: 1. Nonobstructive bowel gas pattern. Mild to moderate colonic and rectal stool burden. 2. Horizontal orientation of the IUD overlying the mid pelvis. This could be secondary to uterine tilt however the location cannot be determined on this study. Confirmation with pelvic ultrasound is recommended. Medications Medications Current Medications Acetaminophen (Acetaminophen 325 Mg Tablet) 650 mg PO Q6H PRN PRN Reason: Headache/Pain Mild Scale (1-3) Al Hydroxide/Mg Hydroxide (Magnesium Hydrox/Alum Hydrox 30 Ml Oral.Susp) 30 ml PO Q6H PRN PRN Reason: Heartburn/Nausea Last Admin: 09/10/21 15:30 Dose: 30 ml Aripiprazole (Aripiprazole 5 Mg Tablet) 5 mg PO BEDTIME LISANDRA Benztropine Mesylate (Benztropine Mesylate 1 Mg Tablet) 1 mg PO BID PRN PRN Reason: EPS Last Admin: 09/12/21 13:21 Dose: 1 mg Chlorpromazine HCl (Chlorpromazine Hcl 25 Mg Tablet) 25 mg PO QID PRN PRN Reason: psychosis Last Admin: 09/12/21 13:21 Dose: 25 mg Clozapine (Clozapine 100 Mg Tablet) 400 mg PO BEDTIME LISANDRA Last Admin: 09/11/21 21:32 Dose: 400 mg Docusate Sodium (Docusate Sodium 100 Mg Capsule) 100 mg PO BID LISANDRA Last Admin: 09/12/21 13:21 Dose: 100 mg Hydroxyzine HCl (Hydroxyzine Hcl 25 Mg Tablet) 25 mg PO Q6H PRN PRN Reason: Anxiety Last Admin: 09/08/21 21:33 Dose: 25 mg Lorazepam (Lorazepam 1 Mg Tablet) 1 mg PO Q4H PRN PRN Reason: Anxiety Last Admin: 09/11/21 21:37 Dose: 1 mg Magnesium Hydroxide (Milk Of Magnesia 30 Ml Oral.Susp) 30 ml PO DAILY PRN PRN Reason: Constipation Last Admin: 09/10/21 15:30 Dose: 30 ml Melatonin (Melatonin 3 Mg Tablet) 9 mg PO BEDTIME PRN PRN Reason: sleep Last Admin: 09/10/21 22:40 Dose: 9 mg Polyethylene Glycol (Polyethylene Glycol 3350 17 Gm Powd.Pack) 17 gm PO BID LISANDRA Last Admin: 09/12/21 08:37 Dose: Not Given Trazodone HCl (Trazodone Hcl 100 Mg Tablet) 100 mg PO BEDTIME LISANDRA Last Admin: 09/11/21 21:32 Dose: 100 mg Allergies Allergies Allergy/AdvReac Type Severity Reaction Status Date / Time haloperidol [From HALDOL] AdvReac Unknown EYES Verified 09/01/21 19:59 ROLLED BACK Assessment & Plan Assessment & Plan (1) Schizoaffective disorder, depressive type: Status: Acute Code(s): F25.1 - Schizoaffective disorder, depressive type (2) Polysubstance abuse: Status: Acute Code(s): F19.10 - Other psychoactive substance abuse, uncomplicated Plan Daysi is a 36 y.o. female with history of PTSD and schizoaffective DO, depressive type. She presented to [facility] [place] [facility] on 08/31/21 due to SI, paranoia, command AH of a man with a deep voice telling her to hurt herself, and VH of shadow people. Pt is on clozapine 350 mg (recently increased from 300 mg on 08/14/21), had been non-adherent x 3 days but re-started in the ED prior to coming to . No alcohol abuse. Utox negative.?Hx of multiple psych hospitalizations for delusional thought content and PTSD exacerbation. Plan: Pt reports she has utilized melatonin with good effect but if ?Im really anxious and hearing voices it doesnt make a difference.? Will start melatonin 9 mg QHS PRN, as pt typically takes 10 mg at home. Will continue clozapine 350 mg HS, reviewed ANC (which has been between 2.4-3.9 since 01/2021). Will continue trazodone for sleep. Pt has had previous benefit on perphenazine, may consider re-starting.? Q15 min safety checks, CV Monitor response to medications. Monitor for safety in the milieu. Discharge on stabilization. Patient seen. Chart reviewed. Discussed with team. Obtain collateral contact info?as needed 09/04/21- Increase Clozapine to 400 mg HS Topiramate 25 mg daily 09/05/21- Chlorpromazine 25 mg qid Benztropine 1 mg bid 09/06/21- Change Chlorpromazine and Benztropine to prn. 09/07: Continue current regimen and plans 09/08: Continue current plans and regimen 09/10/21: Continue current regime I spent minutes with the patient and/or on the patient floor today, greater than?50% of which was spent counseling/coordinating care.
[2021-09-12 18:52] VITALS: BP 121/82; PULSE 99; TEMP 36.8
[2021-09-12] MEDS: cloZAPine 100 MG TABLET 400 MG PO (21:26)
[2021-09-12] MEDS: metFORMIN HCl ER 500 MG TAB.ER.24H PO (21:26)
[2021-09-12] MEDS: LORazepam 1 MG TABLET PO (21:27)
[2021-09-12] MEDS: traZODone HCL 100 MG TABLET PO (21:27)
[2021-09-13 06:00] VITALS: BP 116/62; PULSE 95; RESP 18; TEMP 36.7; O2SAT 98
[2021-09-13] MEDS: Docusate Sodium 100 MG CAPSULE PO (08:04)
[2021-09-13] MEDS: ARIPiprazole 5 MG TABLET PO (08:05)
[2021-09-13] MEDS: chlorproMAZINE HCl 25 MG TABLET PO (12:37)
[2021-09-13] MEDS: Benztropine Mesylate 1 MG TABLET PO (12:37)
--- NOTE | 2021-09-13 19:05 | PM.PSYDC ---
DS: Providers Provider Date of Service: 09/13/21 Date of admission: 09/02/21 14:01 Date of discharge: 09/13/21 Primary care physician: Carlos Degroot III, MD Admitting clinician: Safia Stubbs Attending physician on admission: Eddie Thomas Attending physician on discharge: Eddie Thomas Discharging clinician: Iram Adan DS: Diagnosis Discharge Diagnosis (1) Schizoaffective disorder, depressive type: Status: Acute DS: Medications Discharge Medications Home Medications: Home Medications Medication Instructions Recorded Confirmed melatonin 3 mg tablet 6 mg PO BEDTIME 09/01/21 09/01/21 Previous Rx's Medication Instructions Recorded aripiprazole 5 mg tablet (Abilify) 5 mg PO DAILY #30 tabs 09/13/21 benztropine 1 mg tablet 1 mg PO BID PRN EPS #60 tabs 09/13/21 chlorpromazine 25 mg tablet 25 mg PO BID PRN voices #30 tabs 09/13/21 clozapine 100 mg tablet 400 mg PO BEDTIME #30 tabs 09/13/21 docusate sodium 100 mg capsule 100 mg PO BID #60 caps 09/13/21 lorazepam 1 mg tablet 1 tab PO BID PRN Anxiety #14 tabs 09/13/21 metformin 500 mg tablet,extended 500 mg PO DAILY@1700 #30 tabs 09/13/21 release 24 hr trazodone 100 mg tablet 100 mg PO BEDTIME #30 tabs 09/13/21 Mental Status Exam Mental Status Exam Patient Appearance: Appropriate Patient Orientation: Person, Place, Time and Situation Level of Consciousness: Alert Patient Behavior: Talkative and Good Eye Contact Mood Description: Anxious and Apprehensive Affect Description: Constricted Patient Cognition Impaired: No Ability to Follow Directions: Good Speech Pattern: Spontaneous Speech Memory Description: Intact Hallucinations: Auditory (whispers at times, non command) Delusions: Not Present Perceptual Disturbances: Depersonalization Thought Process: Goal Oriented Thought Content: positive for Goal Oriented Depressive Symptoms: Increased Anxiety Judgement: Good Data Data Completed and Pending Completed studies during hospitalization [Text1]: 09/08/21 07:04 Absolute Neuts (auto) 3.7 Imaging Diagnostic Imaging Impressions KUB X-Ray 09/10/21 22:32 IMPRESSION: 1. Nonobstructive bowel gas pattern. Mild to moderate colonic and rectal stool burden. 2. Horizontal orientation of the IUD overlying the mid pelvis. This could be secondary to uterine tilt however the location cannot be determined on this study. Confirmation with pelvic ultrasound is recommended. DS: Summary Hospital Course Hospital Course: Admission to adult psychiatry for exacerbation of symptoms of schizoaffective disorder, depressed type. Out pt prescriber was consulted with. Clozapine was increased to 350 mg prior to admission without symptom relief. Clozapine was increased to 400 mg. Abilify was added for augmentation. Chlorpromazine was offered as a prn for symptoms of perceptual alterations, which she found very useful, along with Benztropine and standing Metformin as pt is concerned about weight gain. As she settled into milieu she began to discuss her feelings of guilt in having this illness and how it has effected her role as a mother and partner. Pt was discharged with some improvement and symptom relief, she will taper off prn chlorprmazaine and continue to focus on issues in psychotherapy. She did not want to trial antidepressant therapy during the hospitalization. She does identify chronic issues with medicine compliance and education was completed throughout her admission regarding meds, efficacy, and symptom mgt along with the importance of compliance. Time spent discussing smoking cessation with patient: 3 to 10 minutes Status at Discharge Functional status at discharge: independent ambulation Overall status at discharge: patient is progressing back to baseline Time Spent with Patient Time attestation: Total time spent providing and/or coordinating discharge services: 40 Time spent: Greater than 30 minutes Discharge Plan Discharge Patient Disposition: Home, Self-Care Discharge Diagnosis: Schizoaffective Disorder, depressed Referrals: Dr. Leahy [Other] - 10/09/21 9:30 am (Follow-up psychiatric appointment by tele-health ) Amira Quesada [Other] - 09/19/21 3:15 pm (Follow-up appointment with outpatient therapist after [place] [facility] [place] Carlos Degroot III, MD [Primary Care Provider] - 1 Week (left message to give us a call back with f/u appt. or reach put to pt. with f/u appt/) Discharge Medications: New aripiprazole [Abilify] 5 mg Tablet 5 mg PO DAILY Qty: 30 0RF benztropine 1 mg Tablet 1 mg PO BID PRN (Reason: EPS) Qty: 60 0RF clozapine 100 mg Tablet 400 mg PO BEDTIME Qty: 30 0RF docusate sodium 100 mg Capsule 100 mg PO BID Qty: 60 0RF metformin 500 mg Tablet Extended Release 24 Hr 500 mg PO DAILY@1700 Qty: 30 0RF chlorpromazine 25 mg tablet 25 mg PO BID PRN (Reason: voices) Qty: 30 0RF Continued melatonin 3 mg Tablet 6 mg PO BEDTIME lorazepam 1 mg tablet 1 tab PO BID PRN (Reason: Anxiety) Qty: 14 1RF Changed trazodone 100 mg tablet 100 mg PO BEDTIME Qty: 30 0RF Discontinued clozapine 200 mg tablet 1 tab PO BEDTIME clozapine 50 mg tablet 1 tab PO BEDTIME clozapine 100 mg tablet 1 tab PO BEDTIME Rx Instructions: total dose of 350 mg Discharge Orders: Discharge Order (Routine); Ordered 09/13/21 Ordered By: Iram Adan Diet: Advance to usual diet Activity on Discharge: As tolerated Stand Alone Forms: Patient Portal Discharge page, Community Support Care Plan Goals: Mood stabilization Clarity of thought process Health Concerns: Schizoaffective Disorder, depressed Plan of Treatment: Attend follow up appointments Take medications as directed Practice coping skills Crisis Services if needed [phone] Call/Return as needed Assessment: non-psychotic, non-suicidal. Discharge Date/Time: 09/13/21 16:06
== END 2021-09-13 16:06 | disposition home or self-care (01) | DRG 750 ==
LOC: HO.ED 23:55 → HO.PM5 09-02 14:09
PROVIDERS: Physician Assistant; Admitting Provider Psychiatry & Neurology Psychiatry; Emergency Provider Emergency Medicine; PCP Internal Medicine; Visit Provider Clinical Nurse Specialist Psychiatric/Mental Health, Adult
DX: F25.1 Schizoaffective disorder, depressive type (principal); F19.10 Other psychoactive substance abuse, uncomplicated; F43.10 Post-traumatic stress disorder, unspecified; Z20.822 Contact with and (suspected) exposure to COVID-19; Z87.891 Personal history of nicotine dependence; Z79.84 Long term (current) use of oral hypoglycemic drugs; Z79.899 Other long term (current) drug therapy
CPT/HCPCS: 36415; 74018; 80048; 80061; 80143; 80179; 80307; 81001; 81025; 82077; 82607; 82746; 83036; 83735; 84439; 84443; 85025; 85048; 87635; 93005; 99285

== ENCOUNTER 2021-09-14 10:54 | Outpatient (REF) | payer BC, SELFPAY ==
[2021-09-14 13:30] LABS: MANUAL DIFF FLAG NO
[2021-09-14 13:33] LABS: Basophils Absolute Auto 0.1 X10*3/uL (0.0-0.2); Basophils Percent Auto 0.8 % (0-2); Eosinophils Absolute Auto 0.2 X10*3/uL (0.0-0.4); Eosinophils Percent Auto 2.3 % (0-4); Hematocrit 39.9 % (37.0-47.0); Imm Gran Abs Auto 0.03 X10*3/uL (0.00-0.03); Imm Gran Pct Auto 0.4 % (0.0-0.4); Lymphocytes Absolute Auto 3.2 X10*3/uL (1.2-4.9); Mean Corpuscular HGB Conc 32.6 g/dl (31.0-35.0); Mean Corpuscular Volume 88.9 fL (80.0-98.0); Mean Platelet Volume 11.3 fL (9.4-12.3); Monocytes Absolute Auto 0.5 X10*3/uL (0.1-1.2); Monocytes Percent Auto 6.4 % (2-11); Neutrophils Absolute Auto 3.4 x10*3/uL (2.0-8.3); Neutrophils Percent Auto 46.1 % (45-73); Platelet Count 269 X10*3/uL (160-400); Red Blood Count 4.49 X10*6/uL (4.20-5.50); Red Cell Distribution Width 14.7 % (11.0-16.0); White Blood Count 7.3 X10*3/uL (4.8-10.8)
== END 2021-09-14 10:55 | disposition home or self-care (01) ==
LOC: HO.HMGCLR 10:54
PROVIDERS: PCP Internal Medicine; Visit Provider Psychiatry & Neurology Psychiatry
DX: Z79.899 Other long term (current) drug therapy (principal)
CPT/HCPCS: 36415; 85025

== ENCOUNTER 2021-10-05 14:22 | Outpatient (REF) | payer BC, SELFPAY ==
[2021-10-05 15:14] LABS: MANUAL DIFF FLAG NO
[2021-10-05 15:18] LABS: Basophils Absolute Auto 0.1 X10*3/uL (0.0-0.2); Basophils Percent Auto 0.9 % (0-2); Eosinophils Absolute Auto 0.2 X10*3/uL (0.0-0.4); Eosinophils Percent Auto 2.7 % (0-4); Hematocrit 41.6 % (37.0-47.0); Hemoglobin 13.7 g/dl (12.0-16.0); Imm Gran Abs Auto 0.04 X10*3/uL (0.00-0.03); Imm Gran Pct Auto 0.5 % (0.0-0.4); Lymphocytes Absolute Auto 3.4 X10*3/uL (1.2-4.9); Lymphocytes Percent Auto 41.5 % (20-40); Mean Corpuscular HGB Conc 32.9 g/dl (31.0-35.0); Mean Corpuscular Hemoglobin 29.2 pg (27.0-33.0); Mean Corpuscular Volume 88.7 fL (80.0-98.0); Mean Platelet Volume 11.4 fL (9.4-12.3); Monocytes Absolute Auto 0.5 X10*3/uL (0.1-1.2); Monocytes Percent Auto 5.7 % (2-11); Neutrophils Absolute Auto 3.9 x10*3/uL (2.0-8.3); Neutrophils Percent Auto 48.7 % (45-73); Platelet Count 278 X10*3/uL (160-400); Red Blood Count 4.69 X10*6/uL (4.20-5.50); Red Cell Distribution Width 14.6 % (11.0-16.0); White Blood Count 8.1 X10*3/uL (4.8-10.8)
== END 2021-10-05 14:23 | disposition home or self-care (01) ==
LOC: HO.HMGCLDS 14:22
PROVIDERS: PCP Internal Medicine; Visit Provider Psychiatry & Neurology Psychiatry
DX: Z79.899 Other long term (current) drug therapy (principal)
CPT/HCPCS: 36415; 85025; 85048

== ENCOUNTER 2021-10-07 16:04 | Inpatient (IN) | payer BC, SELFPAY ==
--- NOTE | 2021-10-07 16:13 | ED.PSYCH ---
HPI - Psych General Chief Complaint: Psychiatric Symptoms Stated Complaint: SI Time Seen by Provider: 10/07/21 16:13 Source: patient and old records reviewed Mode of arrival: ambulatory Limitations: no limitations History of Present Illness HPI Narrative: 36 yo female with history of schizoaffective disorder, depressed type, on Clozaril, obesity with recent admission to 09/02-09/13 with auditory, visual, perceptual alterations who presents to the ER for evaluation of suicidal ideation with plan to overdose on her medications. She reports for the last few weeks she has felt suicidal thoughts due to worsening auditory hallucinations. She states there are voices that are telling her she is worthless and that she should drive her car off a bridge. She reports sometimes they are only whispers and can be controlled with her p.r.n. medications, however sometimes it is the man with a deep and controlling voices telling her bad things. She reports she has been taking her medications and talking to her therapist. She talked to her today who told her she it may be a good idea if she came to the hospital for evaluation. She denies any alcohol or illicit drug use. MD complaint: suicidal ideation and feels depressed Onset (ago): week(s) (2-3) Duration: getting worse History of same: Yes Relieving factors: medication and therapy Exacerbating factors: none Associated psychiatric symptoms: depression, suicidal ideation and auditory hallucinations Associated symptoms: denies other symptoms Treatments prior to arrival: none If self harm: admits thoughts of self harm and has plan Details of plan: overdose on meds Related Data Home Medications Medication Instructions Recorded Confirmed melatonin 3 mg tablet 6 mg PO BEDTIME 09/01/21 09/01/21 Previous Rx's Medication Instructions Recorded aripiprazole 5 mg tablet (Abilify) 5 mg PO DAILY #30 tabs 09/13/21 benztropine 1 mg tablet 1 mg PO BID PRN EPS #60 tabs 09/13/21 chlorpromazine 25 mg tablet 25 mg PO BID PRN voices #30 tabs 09/13/21 clozapine 100 mg tablet 400 mg PO BEDTIME #30 tabs 09/13/21 docusate sodium 100 mg capsule 100 mg PO BID #60 caps 09/13/21 lorazepam 1 mg tablet 1 tab PO BID PRN Anxiety #14 tabs 09/13/21 metformin 500 mg tablet,extended 500 mg PO DAILY@1700 #30 tabs 09/13/21 release 24 hr trazodone 100 mg tablet 100 mg PO BEDTIME #30 tabs 09/13/21 Allergies Allergy/AdvReac Type Severity Reaction Status Date / Time haloperidol [From HALDOL] AdvReac Unknown EYES Verified 10/07/21 16:11 ROLLED BACK Review of Systems Review of Systems: Constitutional: No Fever, No Chills ENT/Mouth: No sore throat, No Rhinorrhea, No Swallowing Difficulty Eyes: No Eye Pain, No Swelling, No Redness Cardiovascular: No Chest Pain, No SOB, No Orthopnea, No Edema Respiratory: No Cough, No Sputum, No Wheezing, No dyspnea Gastrointestinal: No Nausea, No Vomiting, No Diarrhea, No abdominal Pain, No Hematochezia, No Melena Genitourinary: No Dysuria, No Urinary Frequency, No Hematuria Musculoskeletal: No joint pain, No Myalgias Skin: No Skin Lesions, No rash Neuro: No Weakness, No Numbness, No Dizziness, No Headache Psych: + Anxiety/Panic, + Depression, +AH, No VH, +SI, No HI Heme/Lymph: No Bruising, No Lymphadenopathy Endocrine: No Polyuria, No Polydipsia PMFSH Past Medical History Medical History Psychosis Social History Social History Household Members: Spouse and Children Housing: Other Housing Other:: [facility] Do you presently have visiting nurse or other home services: No Patient Tobacco Use Status: Former Tobacco user e-Cigarette/Vaping Use: Former Use Second Hand Smoke Exposure: No Substance Use Type: Caffiene Advance Directives: No Advance Directives Information Provided: Yes service: No Sexual orientation: Straight/Heterosexual Physical Exam Vital Signs: Vital Signs: Last Vital Signs Temp 98.0 F 10/07/21 16:25 Pulse 107 H 10/07/21 16:25 Resp 16 10/07/21 16:25 BP 123/89 10/07/21 16:25 Pulse Ox 99 10/07/21 16:25 O2 Del Method 10/07/21 16:25 BMI result Body Mass Index 39.4 Appearance: Alert. Oriented X3. No acute distress. Eyes: Pupils equal, round and reactive to light. ENT: Pharynx normal. Neck: Normal inspection. Neck supple. CVS: Normal heart rate and rhythm. Pulses normal. Respiratory: No respiratory distress. Breath sounds normal. Abdomen: Soft and nontender. +BS x4 Skin: Skin warm and dry. Normal skin color. Normal skin turgor. No rashes. Extremities: No lower extremity edema. Neuro/psych Oriented X 3. No motor deficit. No sensory deficit. CN II-XII intact. Flat affect, depressed, suicidal. +AH. Course Course Course Narrative: 36-year-old female with a history of schizoaffective disorder, depressive type with auditory hallucinations who presents to the ER for worsening auditory hallucinations causing her to be suicidal. She is a mother of 2 and is worried about her children. There with her currently. She cannot say any significant life stressors that have contributed to her psychiatric decline. She has been taking her medications appropriately. She reports her recent admission here was helpful. Will plan to get lab workup, check her blood counts given she is on Clozaril. Will have crisis team evaluate her when she is medically cleared. Reevaluation(s) Reevaluation #1: CBC is unremarkable. Labs showing some mild hypercalcemia, improved from prior, otherwise unremarkable. Her urinalysis is negative for infection. Her drug U tox is positive for fentanyl. She is adamant against using any illicit drugs, question if there is any cross-reactivity with Clozaril or any of her psych medications. Physician observation started at 18:02. Patient placed in physician observation because patient is awaiting [facility] evaluation for the possible need of inpatient psych admission. At the time observation was started patient's vital signs were stable. Patient is alert and oriented. Neuro exam is non-focal. CV: RRR and lungs are clear. Will continue to monitor. [facility] - Psych Lab Data Result diagrams: 10/07/21 17:28 10/07/21 17:28 Labs: Lab Results 10/07/21 10/07/21 10/07/21 Range/Units 17:14 17:14 17:14 WBC (4.8-10.8) X10*3/uL RBC (4.20-5.50) X10*6/uL Hgb (12.0-16.0) g/dl Hct (37.0-47.0) % MCV (80.0-98.0) fL MCH (27.0-33.0) pg MCHC (31.0-35.0) g/dl RDW (11.0-16.0) % Plt Count (160-400) X10*3/uL MPV (9.4-12.3) fL Immature Gran % (Auto) (0.0-0.4) % Neut % (Auto) (45-73) % Lymph % (Auto) (20-40) % Carbon % (Auto) (2-11) % Eos % (Auto) (0-4) % Baso % (Auto) (0-2) % Lymph # (Auto) (1.2-4.9) X10*3/uL Carbon # (Auto) (0.1-1.2) X10*3/uL Eos # (Auto) (0.0-0.4) X10*3/uL Baso # (Auto) (0.0-0.2) X10*3/uL Abs Immat Gran (auto) (0.00-0.03) X10*3/uL Absolute Neuts (auto) (2.0-8.3) x10*3/uL Absolute Nucleated RBC (0.0-0.012) X10*3/uL Nucleated RBC % (auto) (0.0-0.2) /100WBC Sodium (135-145) mmol/L Potassium (3.3-5.1) mmol/L Chloride (96-108) mmol/L Carbon Dioxide (22-29) mmol/L Anion Gap (12-20) BUN (9-16) mg/dL Creatinine (0.5-1.4) mg/dL Estim Creat Clear Calc Estimated GFR Random Glucose (60-115) mg/dL Calcium (8.4-10.2) mg/dL Magnesium (1.6-2.6) mg/dL Total Bilirubin (0.0-1.0) mg/dL Direct Bilirubin (0.0-0.5) mg/dL AST (5-31) U/L ALT (0-31) U/L Alkaline Phosphatase (39-117) U/L Total Protein (6.5-8.0) g/dL Albumin (3.5-5.0) g/dL Urine Color Yellow Urine Appearance Cloudy Urine pH 5.5 (5.0-8.0) Ur Specific [place] 1.010 (1.005-1.025) Urine Protein Negative (Neg-Trace) mg/dL Urine Glucose (UA) Negative (Negative) mg/dL Urine Ketones Trace (Negative) mg/dL Urine Blood Trace (Negative) Urine Nitrite Negative (Negative) Ur Leukocyte Esterase Trace H (Negative) Urine RBC 0-2 (0-2) /HPF Urine WBC 0-5 (0-5) /HPF Ur Squamous Epith Cells 6-10 (0-2) /HPF Urine Bacteria None Seen (None Seen) Hyaline Casts 0-2 (0-2) /LPF Urine Opiates Screen Not Detected (Not Detect) Urine Fentanyl Screen POSITIVE H (Not Detect) Ur Barbiturates Screen Not Detected (Not Detect) Ur Phencyclidine Scrn Not Detected (Not Detect) Ur Amphetamines Screen Not Detected (Not Detect) U Benzodiazepines Scrn Not Detected (Not Detect) Urine Cocaine Screen Not Detected (Not Detect) U Marijuana (THC) Screen Not Detected (Not Detect) Ethyl Alcohol mg/dL COVID-19 (SHIREEN) Negative (Negative) COVID-19 Clin Com See Note 10/07/21 10/07/21 Range/Units 17:28 17:28 WBC 7.5 (4.8-10.8) X10*3/uL RBC 4.79 (4.20-5.50) X10*6/uL Hgb 13.7 (12.0-16.0) g/dl Hct 41.8 (37.0-47.0) % MCV 87.3 (80.0-98.0) fL MCH 28.6 (27.0-33.0) pg MCHC 32.8 (31.0-35.0) g/dl RDW 14.3 (11.0-16.0) % Plt Count 273 (160-400) X10*3/uL MPV 10.9 (9.4-12.3) fL Immature Gran % (Auto) 0.5 H (0.0-0.4) % Neut % (Auto) 66.7 (45-73) % Lymph % (Auto) 25.7 (20-40) % Carbon % (Auto) 5.0 (2-11) % Eos % (Auto) 1.2 (0-4) % Baso % (Auto) 0.9 (0-2) % Lymph # (Auto) 1.9 (1.2-4.9) X10*3/uL Carbon # (Auto) 0.4 (0.1-1.2) X10*3/uL Eos # (Auto) 0.1 (0.0-0.4) X10*3/uL Baso # (Auto) 0.1 (0.0-0.2) X10*3/uL Abs Immat Gran (auto) 0.04 H (0.00-0.03) X10*3/uL Absolute Neuts (auto) 5.0 (2.0-8.3) x10*3/uL Absolute Nucleated RBC 0.000 (0.0-0.012) X10*3/uL Nucleated RBC % (auto) 0.0 (0.0-0.2) /100WBC Sodium 141 (135-145) mmol/L Potassium 4.2 (3.3-5.1) mmol/L Chloride 106 (96-108) mmol/L Carbon Dioxide 21 L (22-29) mmol/L Anion Gap 18 (12-20) BUN 8 L (9-16) mg/dL Creatinine 0.91 (0.5-1.4) mg/dL Estim Creat Clear Calc 101.5 Estimated GFR > 60 Random Glucose 117 H (60-115) mg/dL Calcium 10.4 H (8.4-10.2) mg/dL Magnesium 2.0 (1.6-2.6) mg/dL Total Bilirubin 0.6 (0.0-1.0) mg/dL Direct Bilirubin 0.2 (0.0-0.5) mg/dL AST 22 D (5-31) U/L ALT 28 (0-31) U/L Alkaline Phosphatase 93 D (39-117) U/L Total Protein 7.6 D (6.5-8.0) g/dL Albumin 5.0 D (3.5-5.0) g/dL Urine Color Urine Appearance Urine pH (5.0-8.0) Ur Specific [place] (1.005-1.025) Urine Protein (Neg-Trace) mg/dL Urine Glucose (UA) (Negative) mg/dL Urine Ketones (Negative) mg/dL Urine Blood (Negative) Urine Nitrite (Negative) Ur Leukocyte Esterase (Negative) Urine RBC (0-2) /HPF Urine WBC (0-5) /HPF Ur Squamous Epith Cells (0-2) /HPF Urine Bacteria (None Seen) Hyaline Casts (0-2) /LPF Urine Opiates Screen (Not Detect) Urine Fentanyl Screen (Not Detect) Ur Barbiturates Screen (Not Detect) Ur Phencyclidine Scrn (Not Detect) Ur Amphetamines Screen (Not Detect) U Benzodiazepines Scrn (Not Detect) Urine Cocaine Screen (Not Detect) U Marijuana (THC) Screen (Not Detect) Ethyl Alcohol < 10 mg/dL COVID-19 (SHIREEN) (Negative) COVID-19 Clin Com Critical Care Time Critical Care Time Critical Care Time: No Discharge Plan Discharge Clinical Impression: Suicidal ideation, Auditory hallucination Patient Disposition: Still a Patient Prescriptions: No Action melatonin 3 mg Tablet 6 mg PO BEDTIME aripiprazole [Abilify] 5 mg Tablet 5 mg PO DAILY Qty: 30 0RF benztropine 1 mg Tablet 1 mg PO BID PRN (Reason: EPS) Qty: 60 0RF clozapine 100 mg Tablet 400 mg PO BEDTIME Qty: 30 0RF docusate sodium 100 mg Capsule 100 mg PO BID Qty: 60 0RF metformin 500 mg Tablet Extended Release 24 Hr 500 mg PO DAILY@1700 Qty: 30 0RF trazodone 100 mg tablet 100 mg PO BEDTIME Qty: 30 0RF lorazepam 1 mg tablet 1 tab PO BID PRN (Reason: Anxiety) Qty: 14 1RF chlorpromazine 25 mg tablet 25 mg PO BID PRN (Reason: voices) Qty: 30 0RF
[2021-10-07 16:25] VITALS: BP 123/89; PULSE 107; RESP 16; TEMP 36.7; O2SAT 99; BMI 39.4
[2021-10-07 17:26] LABS: Appearance Urine Cloudy; Color Urine Yellow; Glucose Urine UA Negative (Negative); Leukocyte Esterase Urine Trace (Negative); Nitrite Urine Negative (Negative); PH 5.5 (5.0-8.0); Urine Blood Trace (Negative); Urine Ketones Trace mg/dL (Negative); Urine Protein Negative (Neg-Trace)
[2021-10-07 17:33] LABS: MANUAL DIFF FLAG NO
[2021-10-07 17:35] LABS: Basophils Absolute Auto 0.1 X10*3/uL (0.0-0.2); Basophils Percent Auto 0.9 % (0-2); Eosinophils Absolute Auto 0.1 X10*3/uL (0.0-0.4); Eosinophils Percent Auto 1.2 % (0-4); Hematocrit 41.8 % (37.0-47.0); Hemoglobin 13.7 g/dl (12.0-16.0); Imm Gran Abs Auto 0.04 X10*3/uL (0.00-0.03); Imm Gran Pct Auto 0.5 % (0.0-0.4); Lymphocytes Absolute Auto 1.9 X10*3/uL (1.2-4.9); Lymphocytes Percent Auto 25.7 % (20-40); Mean Corpuscular HGB Conc 32.8 g/dl (31.0-35.0); Mean Corpuscular Hemoglobin 28.6 pg (27.0-33.0); Mean Corpuscular Volume 87.3 fL (80.0-98.0); Mean Platelet Volume 10.9 fL (9.4-12.3); Monocytes Absolute Auto 0.4 X10*3/uL (0.1-1.2); Neutrophils Percent Auto 66.7 % (45-73); Platelet Count 273 X10*3/uL (160-400); Red Blood Count 4.79 X10*6/uL (4.20-5.50); Red Cell Distribution Width 14.3 % (11.0-16.0); White Blood Count 7.5 X10*3/uL (4.8-10.8)
[2021-10-07 17:38] LABS: Amphetamine Screen Urine Not Detected (Not Detect); Bacteria Urine None Seen (None Seen); Barbiturates, Urine Not Detected (Not Detect); Benzodiazepines Screen Urine Not Detected (Not Detect); COVID-19 Test Negative (Negative); Cannabinoid Screen Urine Not Detected (Not Detect); Cocaine Screen Urine Not Detected (Not Detect); Fentanyl, urine POSITIVE (Not Detect); Hyaline Casts Urine 0-2 /LPF (0-2); IDNOW Serial# 16C4AD1C; Opiate Screen Urine Not Detected (Not Detect); Phencyclidine Screen Urine Not Detected (Not Detect); RBC Urine 0-2 /HPF (0-2); WBC Urine 0-5 /HPF (0-5)
[2021-10-07 17:52] LABS: Alanine Aminotransferase 28 U/L (0-31); Alkaline Phosphatase 93 U/L (39-117); Anion Gap 18 (12-20); Aspartate Amino Transferase 22 U/L (5-31); Bilirubin Direct 0.2 mg/dL (0.0-0.5); Bilirubin Total 0.6 mg/dL (0.0-1.0); Blood Urea Nitrogen 8 mg/dL (9-16); Calcium 10.4 mg/dL (8.4-10.2); Carbon Dioxide 21 mmol/L (22-29); Chloride 106 mmol/L (96-108); Creatinine Clr Calc Pharmacy 101.5; Estimated Glomerular Filt Rate > 60; Ethanol < 10 mg/dL; Glucose Random 117 mg/dL (60-115); Potassium 4.2 mmol/L (3.3-5.1); Sodium 141 mmol/L (135-145); Total Protein 7.6 g/dL (6.5-8.0)
--- NOTE | 2021-10-07 18:12 | PC.NURSE ---
Anthony sent to [facility]
--- NOTE | 2021-10-07 18:13 | PHA.MEDREC ---
Pharmacy Consult ? Medication Reconciliation Pharmacy has completed the medication reconciliation Patient was excellent historian.
[2021-10-07] MEDS: Melatonin 3 MG TABLET 9 MG PO (19:58)
[2021-10-07] MEDS: traZODone HCL 100 MG TABLET PO (19:59)
[2021-10-07] MEDS: LORazepam 1 MG TABLET PO (19:59)
[2021-10-07] MEDS: Docusate Sodium 100 MG CAPSULE PO (19:59)
[2021-10-07] MEDS: cloZAPine 100 MG TABLET 400 MG PO (20:26)
--- NOTE | 2021-10-08 | ECG_ITS ---
Test Reason : med clearance Blood Pressure : / mmHG Vent. Rate : 090 BPM Atrial Rate : 090 BPM P-R Int : 128 ms QRS Dur : 088 ms QT Int : 362 ms P-R-T Axes : 005 -01 013 degrees QTc Int : 442 ms Normal sinus rhythm Minimal voltage criteria for LVH, may be normal variant ( R in aVL ) Nonspecific T wave abnormality Abnormal ECG When compared with ECG of 02-SEP-2021 23:16, No significant change was found Referred By: Iram Adan Electronically Signed By:HARSHA REID
[2021-10-08 00:03] VITALS: BP 121/78; PULSE 97; RESP 16; TEMP 36.5; O2SAT 98
[2021-10-08 00:35] LABS: UPreg QC Valid YES; Urine Pregnancy NEGATIVE (NEGATIVE)
--- NOTE | 2021-10-08 06:46 | PC.NURSE ---
Patient slept through the night, no distress observed/reported, disposition per care team is section 12 inpatient bed search, medication compliant, behavior appropriate, VSS, will continue to monitor.
--- NOTE | 2021-10-08 07:20 | PC.NURSE ---
patient appears to remain asleep at present respirations are even and unlabored patient appears in no distress
[2021-10-08] MEDS: Docusate Sodium 100 MG CAPSULE PO ×2 (11:16→20:08)
[2021-10-08] MEDS: ARIPiprazole 5 MG TABLET PO (11:16)
[2021-10-08] MEDS: Benztropine Mesylate 1 MG TABLET PO (14:45)
[2021-10-08] MEDS: chlorproMAZINE HCl 25 MG TABLET PO (14:45)
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
[2021-10-08 18:00] VITALS: BP 122/80; PULSE 91; RESP 16; TEMP 36.6; O2SAT 100
[2021-10-08] MEDS: cloZAPine 100 MG TABLET 400 MG PO (20:08)
[2021-10-08] MEDS: Melatonin 3 MG TABLET 9 MG PO (20:08)
[2021-10-08] MEDS: traZODone HCL 100 MG TABLET PO (20:08)
[2021-10-09] MEDS: Acetaminophen 325 MG TABLET 650 MG PO (05:39)
[2021-10-09 05:40] VITALS: BP 121/70; PULSE 103; RESP 17; TEMP 36.5; O2SAT 97
--- NOTE | 2021-10-09 08:16 | PC.NURSE ---
Pt refused labs this AM
[2021-10-09] MEDS: ARIPiprazole 5 MG TABLET PO (08:43)
[2021-10-09] MEDS: Docusate Sodium 100 MG CAPSULE PO ×2 (08:44→21:20)
[2021-10-09] MEDS: Milk of Magnesia 30 ML ORAL.SUSP PO (12:01)
[2021-10-09] MEDS: LORazepam 1 MG TABLET PO (14:12)
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
[2021-10-09] MEDS: chlorproMAZINE HCl 25 MG TABLET PO ×2 (16:26→21:20)
[2021-10-09] MEDS: Benztropine Mesylate 1 MG TABLET PO ×2 (16:27→21:20)
[2021-10-09 18:00] VITALS: BP 130/81; PULSE 99; TEMP 36.6; O2SAT 97
[2021-10-09] MEDS: Melatonin 3 MG TABLET 9 MG PO (21:20)
[2021-10-09] MEDS: cloZAPine 100 MG TABLET 400 MG PO (21:20)
[2021-10-09] MEDS: traZODone HCL 100 MG TABLET PO (21:20)
[2021-10-10 06:00] VITALS: BP 144/67; PULSE 86; RESP 18
[2021-10-10] MEDS: Docusate Sodium 100 MG CAPSULE PO ×2 (08:33→20:34)
[2021-10-10] MEDS: Escitalopram Oxalate 5 MG TABLET PO (08:33)
[2021-10-10] MEDS: chlorproMAZINE HCl 25 MG TABLET PO ×3 (08:33→20:35)
[2021-10-10] MEDS: Benztropine Mesylate 1 MG TABLET PO ×2 (08:33→20:35)
--- NOTE | 2021-10-10 15:44 | HO.PSYCHPN ---
Subjective Subjective Date of Service: 10/10/21 Reason For Visit: Schizoaffective D/O Depressed SI w/plan to OD Subjective Notes: Conditional Voluntary Healthcare Proxy: No Guardianship: No Medical Problems Affecting Mental Status: No Interim History: Reports a decrease in appetite and some bloating due to constipation. No BM for ~4 days. Discussed options for laxatives. Tolerating medications thus far-voices are diminished with scheduled Chlorpromazine. Medication Compliance: Yes Side effects from medications: No Attending Groups: Intermittent Review of Systems Acute medical concerns: No Medical Review of Systems: unchanged Review of Systems Gastrointestinal: Reports constipation Reports memory loss Psychiatric: Reports anxiety, Reports depression, Reports difficulty concentrating, Reports auditory hallucinations, Reports anhedonia, Reports memory loss and Reports panic attacks Mental Status Exam Mental Status Exam Patient Appearance: Appropriate Patient Orientation: Person, Place, Time and Situation Level of Consciousness: Alert Patient Behavior: Appropriate, Talkative, Cooperative and Good Eye Contact Mood Description: Depressed, Anxious and Apprehensive Affect Description: Flat Patient Cognition Impaired: No Ability to Follow Directions: Good Speech Pattern: Spontaneous Speech Memory Description: Intact Hallucinations: Auditory Delusions: Paranoid Ideation Perceptual Disturbances: Depersonalization and Derealization Thought Process: Distracted Thought Content: positive for Perseveration and positive for Suicidal Ideation Depressive Symptoms: Increased Anxiety, Diff. Making Decisions, Thoughts of /Suicide and Difficulty Concentrating Judgement: Fair Diagnostics Vital Signs (24Hr): Vital Signs - 24 hr 10/09/21 18:00 10/10/21 06:00 Temperature 97.9 F Pulse Rate 99 86 Respiratory Rate 18 Blood Pressure 130/81 144/67 H Pulse Oximetry 97 Oxygen Delivery Method Room Air BMI result Body Mass Index 39.4 Labs Results: 10/07/21 17:28 10/07/21 17:28 Medications Medications Current Medications Acetaminophen (Acetaminophen 325 Mg Tablet) 650 mg PO Q6H PRN PRN Reason: Headache/Pain Mild Scale (1-3) Last Admin: 10/09/21 05:39 Dose: 650 mg Al Hydroxide/Mg Hydroxide (Magnesium Hydrox/Alum Hydrox 30 Ml Oral.Susp) 30 ml PO Q6H PRN PRN Reason: Heartburn/Nausea Benztropine Mesylate (Benztropine Mesylate 1 Mg Tablet) 1 mg PO BID [facility] Last Admin: 10/10/21 08:33 Dose: 1 mg Benztropine Mesylate (Benztropine Mesylate 1 Mg Tablet) 1 mg PO DAILY PRN PRN Reason: akathesia Chlorpromazine HCl (Chlorpromazine Hcl 25 Mg Tablet) 25 mg PO BID PRN PRN Reason: voices Last Admin: 10/09/21 16:26 Dose: 25 mg Chlorpromazine HCl (Chlorpromazine Hcl 25 Mg Tablet) 25 mg PO BID [facility] Last Admin: 10/10/21 08:33 Dose: 25 mg Clozapine (Clozapine 100 Mg Tablet) 400 mg PO BEDTIME [facility] Last Admin: 10/09/21 21:20 Dose: 400 mg Docusate Sodium (Docusate Sodium 100 Mg Capsule) 100 mg PO BID [facility] Last Admin: 10/10/21 08:33 Dose: 100 mg Escitalopram Oxalate (Escitalopram Oxalate 5 Mg Tablet) 5 mg PO DAILY [facility] Last Admin: 10/10/21 08:33 Dose: 5 mg Hydroxyzine HCl (Hydroxyzine Hcl 25 Mg Tablet) 25 mg PO Q6H PRN PRN Reason: Anxiety Lorazepam (Lorazepam 1 Mg Tablet) 1 mg PO BID PRN PRN Reason: Anxiety Last Admin: 10/09/21 14:12 Dose: 1 mg Magnesium Hydroxide (Milk Of Magnesia 30 Ml Oral.Susp) 30 ml PO DAILY PRN PRN Reason: Constipation Last Admin: 10/09/21 12:01 Dose: 30 ml Melatonin (Melatonin 3 Mg Tablet) 9 mg PO BEDTIME [facility] Last Admin: 10/09/21 21:20 Dose: 9 mg Pharmacy Consult (Consult Rx Perform Med Rec) 1 each MISCELLANE ONCE PRN PRN Reason: Consult order Trazodone HCl (Trazodone Hcl 100 Mg Tablet) 100 mg PO BEDTIME [facility] Last Admin: 10/09/21 21:20 Dose: 100 mg Allergies Allergies Allergy/AdvReac Type Severity Reaction Status Date / Time haloperidol [From HALDOL] AdvReac Unknown EYES Verified 10/07/21 16:11 ROLLED BACK Assessment & Plan Assessment & Plan (1) Schizoaffective disorder, depressive type: Status: Acute Code(s): F25.1 - Schizoaffective disorder, depressive type (2) PTSD (post-traumatic stress disorder): Status: Acute Code(s): F43.10 - Post-traumatic stress disorder, unspecified Plan 36 yo female, hx of schizoaffective disorder, depressed and PTSD. Pt recently discharged, stating she left too early as she missed her children and wanted to get home to them. She returns reporting medication compliance, no relief from sx, SI, anxiety, AH and depressive sx. Possible stressors include mother in law who has dementia needing to leave her home as she is progressing and has had more agitation within her illness and brother in [place] who is on trial this week for child molestation, which appears to have exacerbated PTSD sx. Plan: Thorazine 25 mg bid Benztropine 1 mg bid Discontinue Abilify Lexapro 5 mg daily 10/10/21 Colace bid Dulcolax 10 mg HS prn I spent minutes with the patient and/or on the patient floor today, greater than?50% of which was spent counseling/coordinating care. Patient educated on: medication risk/benefits and therapeutic strategies Informed Consent: understands and further education needed Reason for contiued inpatient stay Substantial Risk for: inability to function and rapid decompensation
[2021-10-10 18:00] VITALS: BP 127/75; PULSE 88; RESP 18; TEMP 36.9; O2SAT 96
[2021-10-10] MEDS: cloZAPine 100 MG TABLET 400 MG PO (20:35)
[2021-10-10] MEDS: Melatonin 3 MG TABLET 9 MG PO (21:29)
[2021-10-10] MEDS: traZODone HCL 100 MG TABLET PO (21:29)
[2021-10-11 06:00] VITALS: BP 115/81; PULSE 98; RESP 18; TEMP 36.6; O2SAT 98
[2021-10-11] MEDS: chlorproMAZINE HCl 25 MG TABLET PO ×3 (08:17→20:51)
[2021-10-11] MEDS: Escitalopram Oxalate 5 MG TABLET PO (08:17)
[2021-10-11] MEDS: Docusate Sodium 100 MG CAPSULE PO ×2 (08:17→20:51)
[2021-10-11] MEDS: Benztropine Mesylate 1 MG TABLET PO ×2 (08:17→18:50)
[2021-10-11 16:19] VITALS: BP 113/75; PULSE 92
--- NOTE | 2021-10-11 17:40 | HO.PSYCHPN ---
Subjective Subjective Date of Service: 10/11/21 Reason For Visit: Schizoaffective D/O Depressed SI w/plan to OD Subjective Notes: Conditional Voluntary Healthcare Proxy: No Guardianship: No Medical Problems Affecting Mental Status: No Interim History: Reports some sx relief. Will increase Radhamesaprtonny Asks if her children may visit. Visable, quietly engaged in milieu. 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 No SE from chlorpromazine Medication Compliance: Yes Side effects from medications: No Attending Groups: Yes Review of Systems Acute medical concerns: No Medical Review of Systems: unchanged Mental Status Exam Mental Status Exam Patient Appearance: Appropriate Patient Orientation: Person, Place, Time and Situation Level of Consciousness: Alert Patient Behavior: Appropriate, Talkative, Cooperative and Good Eye Contact Mood Description: Depressed, Anxious and Apprehensive Affect Description: Flat Patient Cognition Impaired: No Ability to Follow Directions: Good Speech Pattern: Spontaneous Speech Memory Description: Intact Hallucinations: Auditory Delusions: Paranoid Ideation Perceptual Disturbances: Depersonalization and Derealization Thought Process: Distracted Thought Content: positive for Perseveration and positive for Suicidal Ideation Depressive Symptoms: Increased Anxiety, Diff. Making Decisions, Thoughts of /Suicide and Difficulty Concentrating Judgement: Fair Diagnostics Vital Signs (24Hr): Vital Signs - 24 hr 10/10/21 18:00 10/11/21 06:00 10/11/21 16:19 Temperature 98.4 F 98 F Pulse Rate 88 98 92 Respiratory Rate 18 18 Blood Pressure 127/75 115/81 113/75 Pulse Oximetry 96 98 Oxygen Delivery Method Room Air Room Air BMI result Body Mass Index 39.4 Labs Results: 10/07/21 17:28 10/07/21 17:28 Medications Medications Current Medications Acetaminophen (Acetaminophen 325 Mg Tablet) 650 mg PO Q6H PRN PRN Reason: Headache/Pain Mild Scale (1-3) Last Admin: 10/09/21 05:39 Dose: 650 mg Al Hydroxide/Mg Hydroxide (Magnesium Hydrox/Alum Hydrox 30 Ml Oral.Susp) 30 ml PO Q6H PRN PRN Reason: Heartburn/Nausea Benztropine Mesylate (Benztropine Mesylate 1 Mg Tablet) 1 mg PO BID [facility] Last Admin: 10/11/21 08:17 Dose: 1 mg Benztropine Mesylate (Benztropine Mesylate 1 Mg Tablet) 1 mg PO DAILY PRN PRN Reason: akathesia Bisacodyl (Bisacodyl 5 Mg Tablet.Dr) 10 mg PO BEDTIME PRN PRN Reason: constipation Chlorpromazine HCl (Chlorpromazine Hcl 25 Mg Tablet) 25 mg PO BID PRN PRN Reason: voices Last Admin: 10/10/21 20:35 Dose: 25 mg Chlorpromazine HCl (Chlorpromazine Hcl 25 Mg Tablet) 25 mg PO BID [facility] Last Admin: 10/11/21 08:17 Dose: 25 mg Clozapine (Clozapine 100 Mg Tablet) 400 mg PO BEDTIME [facility] Last Admin: 10/10/21 20:35 Dose: 400 mg Docusate Sodium (Docusate Sodium 100 Mg Capsule) 100 mg PO BID [facility] Last Admin: 10/11/21 08:17 Dose: 100 mg Escitalopram Oxalate (Escitalopram Oxalate 10 Mg Tablet) 10 mg PO DAILY [facility] Hydroxyzine HCl (Hydroxyzine Hcl 25 Mg Tablet) 25 mg PO Q6H PRN PRN Reason: Anxiety Lorazepam (Lorazepam 1 Mg Tablet) 1 mg PO BID PRN PRN Reason: Anxiety Last Admin: 10/09/21 14:12 Dose: 1 mg Magnesium Hydroxide (Milk Of Magnesia 30 Ml Oral.Susp) 30 ml PO DAILY PRN PRN Reason: Constipation Last Admin: 10/09/21 12:01 Dose: 30 ml Melatonin (Melatonin 3 Mg Tablet) 9 mg PO BEDTIME [facility] Last Admin: 10/10/21 21:29 Dose: 9 mg Pharmacy Consult (Consult Rx Perform Med Rec) 1 each MISCELLANE ONCE PRN PRN Reason: Consult order Trazodone HCl (Trazodone Hcl 100 Mg Tablet) 100 mg PO BEDTIME [facility] Last Admin: 10/10/21 21:29 Dose: 100 mg Allergies Allergies Allergy/AdvReac Type Severity Reaction Status Date / Time haloperidol [From HALDOL] AdvReac Unknown EYES Verified 10/07/21 16:11 ROLLED BACK Assessment & Plan Assessment & Plan (1) Schizoaffective disorder, depressive type: Status: Acute Code(s): F25.1 - Schizoaffective disorder, depressive type (2) PTSD (post-traumatic stress disorder): Status: Acute Code(s): F43.10 - Post-traumatic stress disorder, unspecified Plan 36 yo female, hx of schizoaffective disorder, depressed and PTSD. Pt recently discharged, stating she left too early as she missed her children and wanted to get home to them. She returns reporting medication compliance, no relief from sx, SI, anxiety, AH and depressive sx. Possible stressors include mother in law who has dementia needing to leave her home as she is progressing and has had more agitation within her illness and brother in [place] who is on trial this week for child molestation, which appears to have exacerbated PTSD sx. Plan: Thorazine 25 mg bid Benztropine 1 mg bid Discontinue Abilify Lexapro 5 mg daily 10/10/21 Colace bid Dulcolax 10 mg HS prn 10/11/21 Increase Lexapro to 10 mg daily I spent minutes with the patient and/or on the patient floor today, greater than?50% of which was spent counseling/coordinating care. Patient educated on: therapeutic strategies Informed Consent: understands Reason for contiued inpatient stay Substantial Risk for: rapid decompensation
[2021-10-11] MEDS: Melatonin 3 MG TABLET 9 MG PO (20:51)
[2021-10-11] MEDS: cloZAPine 100 MG TABLET 400 MG PO (20:51)
[2021-10-11] MEDS: traZODone HCL 100 MG TABLET PO (20:51)
[2021-10-12 09:54] VITALS: BP 96/52; PULSE 94; TEMP 36.6
[2021-10-12] MEDS: Escitalopram Oxalate 10 MG TABLET PO (09:58)
[2021-10-12] MEDS: chlorproMAZINE HCl 25 MG TABLET PO ×3 (09:58→21:09)
[2021-10-12] MEDS: Benztropine Mesylate 1 MG TABLET PO ×3 (09:58→21:09)
[2021-10-12] MEDS: Docusate Sodium 100 MG CAPSULE PO ×2 (09:58→21:09)
[2021-10-12 15:50] VITALS: BP 121/78; PULSE 92; TEMP 36.8; O2SAT 96
--- NOTE | 2021-10-12 20:28 | HO.PSYCHPN ---
Subjective Subjective Date of Service: 10/12/21 Reason For Visit: Schizoaffective D/O Depressed SI w/plan to OD Subjective Notes: Conditional Voluntary Healthcare Proxy: No Guardianship: No Interim History: Pt shares today that brother's trial is postponed until Sept. Discussed concerns about last evenings incident on the unit-reviewed process and concerns. Later in the day, pt asks to sw tw to inform her that she is worried about tw as the voices tell her they are coming for tw. She reviewed how tw should self-protect and cautioned tw on being careful. Quietly visable in the milieu. Medication Compliance: Yes Side effects from medications: No Attending Groups: Yes Review of Systems Acute medical concerns: No Medical Review of Systems: unchanged Mental Status Exam Mental Status Exam Patient Appearance: Appropriate Patient Orientation: Person, Place, Time and Situation Level of Consciousness: Alert Patient Behavior: Appropriate, Talkative, Cooperative and Good Eye Contact Mood Description: Depressed, Anxious and Apprehensive Affect Description: Flat Patient Cognition Impaired: No Ability to Follow Directions: Good Speech Pattern: Spontaneous Speech Memory Description: Intact Hallucinations: Auditory Delusions: Paranoid Ideation Perceptual Disturbances: Depersonalization and Derealization Thought Process: Distracted Thought Content: positive for Perseveration and positive for Suicidal Ideation Depressive Symptoms: Increased Anxiety, Diff. Making Decisions, Thoughts of /Suicide and Difficulty Concentrating Judgement: Fair Diagnostics Vital Signs (24Hr): Vital Signs - 24 hr 10/12/21 09:54 10/12/21 15:50 Temperature 97.9 F 98.3 F Pulse Rate 94 92 Blood Pressure 96/52 L 121/78 Pulse Oximetry 96 Oxygen Delivery Method Room Air BMI result Body Mass Index 39.4 Labs Results: 10/07/21 17:28 10/07/21 17:28 Medications Medications Current Medications Acetaminophen (Acetaminophen 325 Mg Tablet) 650 mg PO Q6H PRN PRN Reason: Headache/Pain Mild Scale (1-3) Last Admin: 10/09/21 05:39 Dose: 650 mg Al Hydroxide/Mg Hydroxide (Magnesium Hydrox/Alum Hydrox 30 Ml Oral.Susp) 30 ml PO Q6H PRN PRN Reason: Heartburn/Nausea Benztropine Mesylate (Benztropine Mesylate 1 Mg Tablet) 1 mg PO BID [facility] Last Admin: 10/12/21 09:58 Dose: 1 mg Benztropine Mesylate (Benztropine Mesylate 1 Mg Tablet) 1 mg PO DAILY PRN PRN Reason: akathesia Last Admin: 10/12/21 11:33 Dose: 1 mg Bisacodyl (Bisacodyl 5 Mg Tablet.Dr) 10 mg PO BEDTIME PRN PRN Reason: constipation Chlorpromazine HCl (Chlorpromazine Hcl 25 Mg Tablet) 25 mg PO BID PRN PRN Reason: voices Last Admin: 10/12/21 11:33 Dose: 25 mg Chlorpromazine HCl (Chlorpromazine Hcl 25 Mg Tablet) 25 mg PO BID [facility] Last Admin: 10/12/21 09:58 Dose: 25 mg Clozapine (Clozapine 100 Mg Tablet) 400 mg PO BEDTIME [facility] Last Admin: 10/11/21 20:51 Dose: 400 mg Docusate Sodium (Docusate Sodium 100 Mg Capsule) 100 mg PO BID [facility] Last Admin: 10/12/21 09:58 Dose: 100 mg Escitalopram Oxalate (Escitalopram Oxalate 10 Mg Tablet) 10 mg PO DAILY [facility] Last Admin: 10/12/21 09:58 Dose: 10 mg Hydroxyzine HCl (Hydroxyzine Hcl 25 Mg Tablet) 25 mg PO Q6H PRN PRN Reason: Anxiety Magnesium Hydroxide (Milk Of Magnesia 30 Ml Oral.Susp) 30 ml PO DAILY PRN PRN Reason: Constipation Last Admin: 10/09/21 12:01 Dose: 30 ml Melatonin (Melatonin 3 Mg Tablet) 9 mg PO BEDTIME [facility] Last Admin: 10/11/21 20:51 Dose: 9 mg Pharmacy Consult (Consult Rx Perform Med Rec) 1 each MISCELLANE ONCE PRN PRN Reason: Consult order Trazodone HCl (Trazodone Hcl 100 Mg Tablet) 100 mg PO BEDTIME [facility] Last Admin: 10/11/21 20:51 Dose: 100 mg Allergies Allergies Allergy/AdvReac Type Severity Reaction Status Date / Time haloperidol [From HALDOL] AdvReac Unknown EYES Verified 10/07/21 16:11 ROLLED BACK Assessment & Plan Assessment & Plan (1) Schizoaffective disorder, depressive type: Status: Acute Code(s): F25.1 - Schizoaffective disorder, depressive type (2) PTSD (post-traumatic stress disorder): Status: Acute Code(s): F43.10 - Post-traumatic stress disorder, unspecified Plan 36 yo female, hx of schizoaffective disorder, depressed and PTSD. Pt recently discharged, stating she left too early as she missed her children and wanted to get home to them. She returns reporting medication compliance, no relief from sx, SI, anxiety, AH and depressive sx. Possible stressors include mother in law who has dementia needing to leave her home as she is progressing and has had more agitation within her illness and brother in [place] who is on trial this week for child molestation, which appears to have exacerbated PTSD sx. Plan: Thorazine 25 mg bid Benztropine 1 mg bid Discontinue Abilify Lexapro 5 mg daily 10/10/21 Colace bid Dulcolax 10 mg HS prn 10/12/21 Continue current regime I spent minutes with the patient and/or on the patient floor today, greater than?50% of which was spent counseling/coordinating care. Patient educated on: therapeutic strategies Informed Consent: understands Reason for contiued inpatient stay Substantial Risk for: inability to function and rapid decompensation
[2021-10-12] MEDS: cloZAPine 100 MG TABLET 400 MG PO (21:09)
[2021-10-12] MEDS: traZODone HCL 100 MG TABLET PO (21:10)
[2021-10-13 09:43] VITALS: BP 117/74; PULSE 91; TEMP 36.2
[2021-10-13] MEDS: Benztropine Mesylate 1 MG TABLET PO ×2 (09:49→15:13)
[2021-10-13] MEDS: Docusate Sodium 100 MG CAPSULE PO ×2 (09:49→21:03)
[2021-10-13] MEDS: Escitalopram Oxalate 10 MG TABLET PO (09:49)
[2021-10-13] MEDS: chlorproMAZINE HCl 25 MG TABLET PO ×2 (15:13→21:03)
[2021-10-13 18:00] VITALS: BP 131/79; PULSE 98; RESP 20; TEMP 36.9; O2SAT 98
--- NOTE | 2021-10-13 19:18 | HO.PSYCHPN ---
Subjective Subjective Date of Service: 10/13/21 Reason For Visit: Schizoaffective D/O Depressed SI w/plan to OD Subjective Notes: Conditional Voluntary Healthcare Proxy: No Guardianship: No Medical Problems Affecting Mental Status: No Interim History: Today Daysi reports that her jaw is tight. Discussed increasing Benztropine. She agrees. Reports she is feeling better today. Discussed upcoming visit with her children. Medication Compliance: Yes Side effects from medications: No Attending Groups: Yes Review of Systems Acute medical concerns: No Medical Review of Systems: unchanged Mental Status Exam Mental Status Exam Patient Appearance: Appropriate Patient Orientation: Person, Place, Time and Situation Level of Consciousness: Alert Patient Behavior: Appropriate, Talkative, Cooperative and Good Eye Contact Mood Description: Depressed, Anxious and Apprehensive Affect Description: Flat Patient Cognition Impaired: No Ability to Follow Directions: Good Speech Pattern: Spontaneous Speech Memory Description: Intact Hallucinations: Auditory Delusions: Paranoid Ideation Perceptual Disturbances: Depersonalization and Derealization Thought Process: Distracted Thought Content: positive for Perseveration and positive for Suicidal Ideation Depressive Symptoms: Increased Anxiety, Diff. Making Decisions, Thoughts of /Suicide and Difficulty Concentrating Judgement: Fair Diagnostics Vital Signs (24Hr): Vital Signs - 24 hr 10/13/21 09:43 10/13/21 18:00 Temperature 97.2 F 98.5 F Pulse Rate 91 98 Respiratory Rate 20 Blood Pressure 117/74 131/79 Pulse Oximetry 98 Oxygen Delivery Method Room Air BMI result Body Mass Index 39.4 Labs Results: 10/07/21 17:28 10/07/21 17:28 Medications Medications Current Medications Acetaminophen (Acetaminophen 325 Mg Tablet) 650 mg PO Q6H PRN PRN Reason: Headache/Pain Mild Scale (1-3) Last Admin: 10/09/21 05:39 Dose: 650 mg Al Hydroxide/Mg Hydroxide (Magnesium Hydrox/Alum Hydrox 30 Ml Oral.Susp) 30 ml PO Q6H PRN PRN Reason: Heartburn/Nausea Benztropine Mesylate (Benztropine Mesylate 1 Mg Tablet) 1 mg PO DAILY PRN PRN Reason: akathesia Last Admin: 10/13/21 15:13 Dose: 1 mg Benztropine Mesylate (Benztropine Mesylate 1 Mg Tablet) 2 mg PO BID [facility] Bisacodyl (Bisacodyl 5 Mg Tablet.Dr) 10 mg PO BEDTIME PRN PRN Reason: constipation Chlorpromazine HCl (Chlorpromazine Hcl 25 Mg Tablet) 25 mg PO BID PRN PRN Reason: voices Last Admin: 10/13/21 15:13 Dose: 25 mg Chlorpromazine HCl (Chlorpromazine Hcl 25 Mg Tablet) 25 mg PO BID [facility] Last Admin: 10/13/21 10:55 Dose: Not Given Clozapine (Clozapine 100 Mg Tablet) 400 mg PO BEDTIME [facility] Last Admin: 10/12/21 21:09 Dose: 400 mg Docusate Sodium (Docusate Sodium 100 Mg Capsule) 100 mg PO BID [facility] Last Admin: 10/13/21 09:49 Dose: 100 mg Escitalopram Oxalate (Escitalopram Oxalate 10 Mg Tablet) 10 mg PO DAILY [facility] Last Admin: 10/13/21 09:49 Dose: 10 mg Hydroxyzine HCl (Hydroxyzine Hcl 25 Mg Tablet) 25 mg PO Q6H PRN PRN Reason: Anxiety Magnesium Hydroxide (Milk Of Magnesia 30 Ml Oral.Susp) 30 ml PO DAILY PRN PRN Reason: Constipation Last Admin: 10/09/21 12:01 Dose: 30 ml Melatonin (Melatonin 3 Mg Tablet) 9 mg PO BEDTIME [facility] Last Admin: 10/12/21 22:50 Dose: Not Given Pharmacy Consult (Consult Rx Perform Med Rec) 1 each MISCELLANE ONCE PRN PRN Reason: Consult order Trazodone HCl (Trazodone Hcl 100 Mg Tablet) 100 mg PO BEDTIME [facility] Last Admin: 10/12/21 21:10 Dose: 100 mg Allergies Allergies Allergy/AdvReac Type Severity Reaction Status Date / Time haloperidol [From HALDOL] AdvReac Unknown EYES Verified 10/07/21 16:11 ROLLED BACK Assessment & Plan Assessment & Plan (1) Schizoaffective disorder, depressive type: Status: Acute Code(s): F25.1 - Schizoaffective disorder, depressive type (2) PTSD (post-traumatic stress disorder): Status: Acute Code(s): F43.10 - Post-traumatic stress disorder, unspecified Plan 36 yo female, hx of schizoaffective disorder, depressed and PTSD. Pt recently discharged, stating she left too early as she missed her children and wanted to get home to them. She returns reporting medication compliance, no relief from sx, SI, anxiety, AH and depressive sx. Possible stressors include mother in law who has dementia needing to leave her home as she is progressing and has had more agitation within her illness and brother in [place] who is on trial this week for child molestation, which appears to have exacerbated PTSD sx. Plan: Thorazine 25 mg bid Benztropine 1 mg bid Discontinue Abilify Lexapro 5 mg daily 10/10/21 Colace bid Dulcolax 10 mg HS prn 10/13/21 Increase Benztropine to 2 mg bid I spent minutes with the patient and/or on the patient floor today, greater than?50% of which was spent counseling/coordinating care. Patient educated on: therapeutic strategies Informed Consent: understands Reason for contiued inpatient stay Substantial Risk for: rapid decompensation
[2021-10-13] MEDS: traZODone HCL 100 MG TABLET PO (21:03)
[2021-10-13] MEDS: Benztropine Mesylate 1 MG TABLET 2 MG PO (21:03)
[2021-10-13] MEDS: cloZAPine 100 MG TABLET 400 MG PO (21:03)
[2021-10-14 06:00] VITALS: BP 118/64; PULSE 16; RESP 16; TEMP 36.6; O2SAT 98
[2021-10-14] MEDS: Docusate Sodium 100 MG CAPSULE PO ×2 (08:33→21:48)
[2021-10-14] MEDS: Benztropine Mesylate 1 MG TABLET 2 MG PO ×2 (08:34→21:49)
[2021-10-14] MEDS: chlorproMAZINE HCl 25 MG TABLET PO ×3 (08:34→21:48)
[2021-10-14] MEDS: Escitalopram Oxalate 10 MG TABLET PO (08:34)
[2021-10-14 08:54] LABS: Neut%MD 44.6 %; Neutrophils Absolute Auto 3.3 x10*3/uL (2.0-8.3); WBCANC 7.3 X10*3/uL
[2021-10-14] MEDS: Benztropine Mesylate 1 MG TABLET PO (12:41)
--- NOTE | 2021-10-14 16:57 | HO.PSYCHPN ---
Subjective Subjective Date of Service: 10/14/21 Reason For Visit: Schizoaffective D/O Depressed SI w/plan to OD Subjective Notes: Conditional Voluntary Healthcare Proxy: No Guardianship: No Medical Problems Affecting Mental Status: No Interim History: Reports continued depressed mood with whispers, shadows. Thoughts of self harm with no current plan-believes she can approach team if feeling unsafe. Discussed efficacy of chlorpromazine and options to augment Clozapine including Abilify, Olanzapine, Risperdal, Seroquel-discussed efficacy data. Pt would like to keep chlorpromazine and possibly increase the dose. She has a current prn and will utilize that. Tolerating Lexapro and states she would like to keep it as she believes it is just beginning to take effect. Afternoon sx are the issue she reports. Discussed using prn chlorpromazine or we could schedule it tid-states she prefers to begin with prn. Reports jaw stiffening sx have decreased and she is not experiencing discomfort. Medication Compliance: Yes Side effects from medications: No Attending Groups: Yes Review of Systems Acute medical concerns: No Medical Review of Systems: unchanged Mental Status Exam Mental Status Exam Patient Appearance: Appropriate Patient Orientation: Person, Place, Time and Situation Level of Consciousness: Alert Patient Behavior: Appropriate, Talkative, Cooperative and Good Eye Contact Mood Description: Depressed, Anxious and Apprehensive Affect Description: Flat Patient Cognition Impaired: No Ability to Follow Directions: Good Speech Pattern: Spontaneous Speech Memory Description: Intact Hallucinations: Auditory Delusions: Paranoid Ideation Perceptual Disturbances: Depersonalization and Derealization Thought Process: Distracted Thought Content: positive for Perseveration and positive for Suicidal Ideation Depressive Symptoms: Increased Anxiety, Diff. Making Decisions, Thoughts of /Suicide and Difficulty Concentrating Judgement: Fair Diagnostics Vital Signs (24Hr): Vital Signs - 24 hr 10/13/21 18:00 10/14/21 06:00 Temperature 98.5 F 97.9 F Pulse Rate 98 16 L Respiratory Rate 20 16 Blood Pressure 131/79 118/64 Pulse Oximetry 98 98 Oxygen Delivery Method Room Air Room Air BMI result Body Mass Index 39.4 Labs Results: 10/07/21 17:28 10/07/21 17:28 Labs: Laboratory Results - last 48 hr 10/14/21 08:10 Absolute Neuts (auto) 3.3 Medications Medications Current Medications Acetaminophen (Acetaminophen 325 Mg Tablet) 650 mg PO Q6H PRN PRN Reason: Headache/Pain Mild Scale (1-3) Last Admin: 10/09/21 05:39 Dose: 650 mg Al Hydroxide/Mg Hydroxide (Magnesium Hydrox/Alum Hydrox 30 Ml Oral.Susp) 30 ml PO Q6H PRN PRN Reason: Heartburn/Nausea Benztropine Mesylate (Benztropine Mesylate 1 Mg Tablet) 1 mg PO DAILY PRN PRN Reason: akathesia Last Admin: 10/14/21 12:41 Dose: 1 mg Benztropine Mesylate (Benztropine Mesylate 1 Mg Tablet) 2 mg PO BID [facility] Last Admin: 10/14/21 08:34 Dose: 2 mg Bisacodyl (Bisacodyl 5 Mg Tablet.Dr) 10 mg PO BEDTIME PRN PRN Reason: constipation Chlorpromazine HCl (Chlorpromazine Hcl 25 Mg Tablet) 25 mg PO BID PRN PRN Reason: voices Last Admin: 10/14/21 12:34 Dose: 25 mg Chlorpromazine HCl (Chlorpromazine Hcl 25 Mg Tablet) 25 mg PO BID [facility] Last Admin: 10/14/21 08:34 Dose: 25 mg Clozapine (Clozapine 100 Mg Tablet) 400 mg PO BEDTIME [facility] Last Admin: 10/13/21 21:03 Dose: 400 mg Docusate Sodium (Docusate Sodium 100 Mg Capsule) 100 mg PO BID [facility] Last Admin: 10/14/21 08:33 Dose: 100 mg Escitalopram Oxalate (Escitalopram Oxalate 10 Mg Tablet) 10 mg PO DAILY [facility] Last Admin: 10/14/21 08:34 Dose: 10 mg Hydroxyzine HCl (Hydroxyzine Hcl 25 Mg Tablet) 25 mg PO Q6H PRN PRN Reason: Anxiety Magnesium Hydroxide (Milk Of Magnesia 30 Ml Oral.Susp) 30 ml PO DAILY PRN PRN Reason: Constipation Last Admin: 10/09/21 12:01 Dose: 30 ml Melatonin (Melatonin 3 Mg Tablet) 9 mg PO BEDTIME [facility] Last Admin: 10/13/21 22:54 Dose: Not Given Pharmacy Consult (Consult Rx Perform Med Rec) 1 each MISCELLANE ONCE PRN PRN Reason: Consult order Trazodone HCl (Trazodone Hcl 100 Mg Tablet) 100 mg PO BEDTIME [facility] Last Admin: 10/13/21 21:03 Dose: 100 mg Allergies Allergies Allergy/AdvReac Type Severity Reaction Status Date / Time haloperidol [From HALDOL] AdvReac Unknown EYES Verified 10/07/21 16:11 ROLLED BACK Assessment & Plan Assessment & Plan (1) Schizoaffective disorder, depressive type: Status: Acute Code(s): F25.1 - Schizoaffective disorder, depressive type (2) PTSD (post-traumatic stress disorder): Status: Acute Code(s): F43.10 - Post-traumatic stress disorder, unspecified Plan 36 yo female, hx of schizoaffective disorder, depressed and PTSD. Pt recently discharged, stating she left too early as she missed her children and wanted to get home to them. She returns reporting medication compliance, no relief from sx, SI, anxiety, AH and depressive sx. Possible stressors include mother in law who has dementia needing to leave her home as she is progressing and has had more agitation within her illness and brother in [place] who is on trial this week for child molestation, which appears to have exacerbated PTSD sx. Plan: Thorazine 25 mg bid Benztropine 1 mg bid Discontinue Abilify Lexapro 5 mg daily 10/10/21 Colace bid Dulcolax 10 mg HS prn 10/13/21 Increase Benztropine to 2 mg bid 10/14/21 Continue current plan. I spent minutes with the patient and/or on the patient floor today, greater than?50% of which was spent counseling/coordinating care. Patient educated on: medication risk/benefits and therapeutic strategies Informed Consent: understands and further education needed Reason for contiued inpatient stay Substantial Risk for: harm to self, inability to function and rapid decompensation
[2021-10-14 21:35] VITALS: BP 131/90; PULSE 96; RESP 16; TEMP 37.2; O2SAT 98
[2021-10-14] MEDS: cloZAPine 100 MG TABLET 400 MG PO (21:48)
[2021-10-14] MEDS: Melatonin 3 MG TABLET 9 MG PO (21:49)
[2021-10-14] MEDS: traZODone HCL 100 MG TABLET PO (21:49)
[2021-10-14] MEDS: LORazepam 0.5 MG TABLET PO (21:58)
[2021-10-15 06:00] VITALS: BP 122/76; PULSE 98; RESP 18; TEMP 36.5; O2SAT 98
[2021-10-15] MEDS: Docusate Sodium 100 MG CAPSULE PO ×2 (09:37→21:38)
[2021-10-15] MEDS: chlorproMAZINE HCl 25 MG TABLET PO ×3 (09:37→21:38)
[2021-10-15] MEDS: Benztropine Mesylate 1 MG TABLET 2 MG PO ×2 (09:37→21:38)
[2021-10-15] MEDS: Escitalopram Oxalate 10 MG TABLET PO (09:37)
[2021-10-15] MEDS: Milk of Magnesia 30 ML ORAL.SUSP PO (12:03)
[2021-10-15] MEDS: Benztropine Mesylate 1 MG TABLET PO (16:37)
[2021-10-15 18:00] VITALS: BP 142/82; PULSE 96; TEMP 36.7; O2SAT 96
--- NOTE | 2021-10-15 18:38 | P.PNPSI_ITS ---
Subjective Subjective Date of Service: 10/15/21 Reason For Visit: Schizoaffective D/O Depressed SI w/plan to OD Subjective Notes: Conditional Voluntary Healthcare Proxy: No Guardianship: No Medical Problems Affecting Mental Status: No Interim History: Daysi reports sx of depression, some AH, some shadows. Concerned about work and questions if she should resign, take FMLA or not respond to employer. We will attempt FMLA for this admission and August 2021 admission. Reports that medicines are tolerated and help, will increase chlorpromazine to assist with sx mgt. No EPS, denies jaw feeling tight. Medication Compliance: Yes Side effects from medications: No Attending Groups: Yes Review of Systems Acute medical concerns: No Medical Review of Systems: unchanged Mental Status Exam Mental Status Exam Patient Appearance: Appropriate Patient Orientation: Person, Place, Time and Situation Level of Consciousness: Alert Patient Behavior: Appropriate, Talkative, Cooperative and Good Eye Contact Mood Description: Depressed, Anxious and Apprehensive Affect Description: Flat Patient Cognition Impaired: No Ability to Follow Directions: Good Speech Pattern: Spontaneous Speech Memory Description: Intact Hallucinations: Auditory Delusions: Paranoid Ideation Perceptual Disturbances: Depersonalization and Derealization Thought Process: Distracted Thought Content: positive for Perseveration and positive for Suicidal Ideation Depressive Symptoms: Increased Anxiety, Diff. Making Decisions, Thoughts of /Suicide and Difficulty Concentrating Judgement: Fair Diagnostics Vital Signs (24Hr): Vital Signs - 24 hr 10/14/21 21:35 10/15/21 06:00 Temperature 99 F 97.7 F Pulse Rate 96 98 Respiratory Rate 16 18 Blood Pressure 131/90 H 122/76 Pulse Oximetry 98 98 Oxygen Delivery Method Room Air BMI result Body Mass Index 39.4 Labs Results: 10/07/21 17:28 10/07/21 17:28 Labs: Laboratory Results - last 48 hr 10/14/21 08:10 Absolute Neuts (auto) 3.3 Medications Medications Current Medications Acetaminophen (Acetaminophen 325 Mg Tablet) 650 mg PO Q6H PRN PRN Reason: Headache/Pain Mild Scale (1-3) Last Admin: 10/09/21 05:39 Dose: 650 mg Al Hydroxide/Mg Hydroxide (Magnesium Hydrox/Alum Hydrox 30 Ml Oral.Susp) 30 ml PO Q6H PRN PRN Reason: Heartburn/Nausea Benztropine Mesylate (Benztropine Mesylate 1 Mg Tablet) 1 mg PO DAILY PRN PRN Reason: akathesia Last Admin: 10/15/21 16:37 Dose: 1 mg Benztropine Mesylate (Benztropine Mesylate 1 Mg Tablet) 2 mg PO BID [facility] Last Admin: 10/15/21 09:37 Dose: 2 mg Bisacodyl (Bisacodyl 5 Mg Tablet.Dr) 10 mg PO BEDTIME PRN PRN Reason: constipation Chlorpromazine HCl (Chlorpromazine Hcl 25 Mg Tablet) 25 mg PO BID PRN PRN Reason: voices Last Admin: 10/15/21 16:37 Dose: 25 mg Chlorpromazine HCl (Chlorpromazine Hcl 25 Mg Tablet) 25 mg PO TID [facility] Clozapine (Clozapine 100 Mg Tablet) 400 mg PO BEDTIME [facility] Last Admin: 10/14/21 21:48 Dose: 400 mg Docusate Sodium (Docusate Sodium 100 Mg Capsule) 100 mg PO BID [facility] Last Admin: 10/15/21 09:37 Dose: 100 mg Escitalopram Oxalate (Escitalopram Oxalate 10 Mg Tablet) 10 mg PO DAILY [facility] Last Admin: 10/15/21 09:37 Dose: 10 mg Hydroxyzine HCl (Hydroxyzine Hcl 25 Mg Tablet) 25 mg PO Q6H PRN PRN Reason: Anxiety Lorazepam (Lorazepam 0.5 Mg Tablet) 0.5 mg PO BEDTIME [facility] Magnesium Hydroxide (Milk Of Magnesia 30 Ml Oral.Susp) 30 ml PO DAILY PRN PRN Reason: Constipation Last Admin: 10/15/21 12:03 Dose: 30 ml Melatonin (Melatonin 3 Mg Tablet) 9 mg PO BEDTIME [facility] Last Admin: 10/14/21 21:49 Dose: 9 mg Pharmacy Consult (Consult Rx Perform Med Rec) 1 each MISCELLANE ONCE PRN PRN Reason: Consult order Trazodone HCl (Trazodone Hcl 100 Mg Tablet) 100 mg PO BEDTIME [facility] Last Admin: 10/14/21 21:49 Dose: 100 mg Allergies Allergies Allergy/AdvReac Type Severity Reaction Status Date / Time haloperidol [From HALDOL] AdvReac Unknown EYES Verified 10/07/21 16:11 ROLLED BACK Assessment & Plan Assessment & Plan (1) Schizoaffective disorder, depressive type: Status: Acute Code(s): F25.1 - Schizoaffective disorder, depressive type (2) PTSD (post-traumatic stress disorder): Status: Acute Code(s): F43.10 - Post-traumatic stress disorder, unspecified Plan 36 yo female, hx of schizoaffective disorder, depressed and PTSD. Pt recently discharged, stating she left too early as she missed her children and wanted to get home to them. She returns reporting medication compliance, no relief from sx, SI, anxiety, AH and depressive sx. Possible stressors include mother in law who has dementia needing to leave her home as she is progressing and has had more agitation within her illness and brother in [place] who is on trial this week for child molestation, which appears to have exacerbated PTSD sx. Plan: Thorazine 25 mg bid Benztropine 1 mg bid Discontinue Abilify Lexapro 5 mg daily 10/10/21 Colace bid Dulcolax 10 mg HS prn 10/13/21 Increase Benztropine to 2 mg bid 10/15/21 Increase Chlorpromazine to 25 mg tid to assist with reported afternoon increase in symptoms. I spent minutes with the patient and/or on the patient floor today, grea ter than?50% of which was spent counseling/coordinating care. Patient educated on: medication risk/benefits and therapeutic strategies Informed Consent: understands and further education needed Reason for contiued inpatient stay Substantial Risk for: harm to self, inability to function and med/psych decompensation
[2021-10-15] MEDS: cloZAPine 100 MG TABLET 400 MG PO (21:38)
[2021-10-15] MEDS: traZODone HCL 100 MG TABLET PO (21:38)
[2021-10-15] MEDS: LORazepam 0.5 MG TABLET PO (21:38)
[2021-10-16] MEDS: chlorproMAZINE HCl 25 MG TABLET PO ×3 (09:16→16:03)
[2021-10-16] MEDS: Escitalopram Oxalate 10 MG TABLET PO (09:17)
[2021-10-16] MEDS: Benztropine Mesylate 1 MG TABLET 2 MG PO ×2 (09:17→23:14)
[2021-10-16] MEDS: Docusate Sodium 100 MG CAPSULE PO ×2 (09:17→23:14)
[2021-10-16] MEDS: Lactulose 20 GM/30 ML SOLUTION PO (11:32)
[2021-10-16] MEDS: Benztropine Mesylate 1 MG TABLET PO (14:11)
[2021-10-16 18:00] VITALS: BP 144/76; PULSE 98; TEMP 36.4; O2SAT 97
[2021-10-16] MEDS: LORazepam 1 MG TABLET PO (19:06)
--- NOTE | 2021-10-16 19:17 | P.PNPSI_ITS ---
Subjective Subjective Date of Service: 10/16/21 Reason For Visit: Schizoaffective D/O Depressed SI w/plan to OD Subjective Notes: Conditional Voluntary Healthcare Proxy: No Guardianship: No Medical Problems Affecting Mental Status: No Interim History: Reports constipation. Lactulose prn ordered (Magnesium Citrate is effected currently by pandemic shortage). No relief with afternoon sx-Chlorpromazine discontinued, Risperdal prn and 2 mg scheduled at [facility] to improve sx mgt. Reports to team that shadow people are coming and chlorpromazine not helping. Medication Compliance: Yes Side effects from medications: No Attending Groups: Yes Review of Systems Acute medical concerns: Yes Medical Review of Systems: unchanged Mental Status Exam Mental Status Exam Patient Appearance: Appropriate Patient Orientation: Person, Place, Time and Situation Level of Consciousness: Alert Patient Behavior: Appropriate, Talkative, Cooperative and Good Eye Contact Mood Description: Depressed, Anxious and Apprehensive Affect Description: Flat Patient Cognition Impaired: No Ability to Follow Directions: Good Speech Pattern: Spontaneous Speech Memory Description: Intact Hallucinations: Auditory Delusions: Paranoid Ideation Perceptual Disturbances: Depersonalization and Derealization Thought Process: Distracted Thought Content: positive for Perseveration and positive for Suicidal Ideation Depressive Symptoms: Increased Anxiety, Diff. Making Decisions, Thoughts of /Suicide and Difficulty Concentrating Judgement: Fair Diagnostics Vital Signs (24Hr): BMI result Body Mass Index 39.4 Labs Results: 10/07/21 17:28 10/07/21 17:28 Medications Medications Current Medications Acetaminophen (Acetaminophen 325 Mg Tablet) 650 mg PO Q6H PRN PRN Reason: Headache/Pain Mild Scale (1-3) Last Admin: 10/09/21 05:39 Dose: 650 mg Al Hydroxide/Mg Hydroxide (Magnesium Hydrox/Alum Hydrox 30 Ml Oral.Susp) 30 ml PO Q6H PRN PRN Reason: Heartburn/Nausea Benztropine Mesylate (Benztropine Mesylate 1 Mg Tablet) 1 mg PO DAILY PRN PRN Reason: akathesia Last Admin: 10/16/21 14:11 Dose: 1 mg Benztropine Mesylate (Benztropine Mesylate 1 Mg Tablet) 2 mg PO BID [facility] Last Admin: 10/16/21 09:17 Dose: 2 mg Bisacodyl (Bisacodyl 5 Mg Tablet.Dr) 10 mg PO BEDTIME PRN PRN Reason: constipation Clozapine (Clozapine 100 Mg Tablet) 400 mg PO BEDTIME [facility] Last Admin: 10/15/21 21:38 Dose: 400 mg Docusate Sodium (Docusate Sodium 100 Mg Capsule) 100 mg PO BID [facility] Last Admin: 10/16/21 09:17 Dose: 100 mg Escitalopram Oxalate (Escitalopram Oxalate 10 Mg Tablet) 10 mg PO DAILY [facility] Last Admin: 10/16/21 09:17 Dose: 10 mg Hydroxyzine HCl (Hydroxyzine Hcl 25 Mg Tablet) 25 mg PO Q6H PRN PRN Reason: Anxiety Lactulose (Lactulose 20 Gm/30 Ml Solution) 20 gm PO Q24H PRN PRN Reason: Constipation Last Admin: 10/16/21 11:32 Dose: 20 gm Lorazepam (Lorazepam 0.5 Mg Tablet) 0.5 mg PO BEDTIME [facility] Last Admin: 10/15/21 21:38 Dose: 0.5 mg Lorazepam (Lorazepam 1 Mg Tablet) 1 mg PO BID PRN PRN Reason: anxiety, agitation Last Admin: 10/16/21 19:06 Dose: 1 mg Magnesium Hydroxide (Milk Of Magnesia 30 Ml Oral.Susp) 30 ml PO DAILY PRN PRN Reason: Constipation Last Admin: 10/15/21 12:03 Dose: 30 ml Melatonin (Melatonin 3 Mg Tablet) 9 mg PO BEDTIME [facility] Last Admin: 10/16/21 00:24 Dose: Not Given Pharmacy Consult (Consult Rx Perform Med Rec) 1 each MISCELLANE ONCE PRN PRN Reason: Consult order Risperidone (Risperidone 2 Mg Tablet) 2 mg PO BEDTIME [facility] Risperidone (Risperidone 1 Mg Tablet) 1 mg PO BID PRN PRN Reason: psychotic symptomatology Trazodone HCl (Trazodone Hcl 100 Mg Tablet) 100 mg PO BEDTIME [facility] Last Admin: 10/15/21 21:38 Dose: 100 mg Allergies Allergies Allergy/AdvReac Type Severity Reaction Status Date / Time haloperidol [From HALDOL] AdvReac Unknown EYES Verified 10/07/21 16:11 ROLLED BACK Assessment & Plan Assessment & Plan (1) Schizoaffective disorder, depressive type: Status: Acute Code(s): F25.1 - Schizoaffective disorder, depressive type (2) PTSD (post-traumatic stress disorder): Status: Acute Code(s): F43.10 - Post-traumatic stress disorder, unspecified Plan 36 yo female, hx of schizoaffective disorder, depressed and PTSD. Pt recently discharged, stating she left too early as she missed her children and wanted to get home to them. She returns reporting medication compliance, no relief from sx, SI, anxiety, AH and depressive sx. Possible stressors include mother in law who has dementia needing to leave her home as she is progressing and has had more agitation within her illness and brother in [place] who is on trial this week for child molestation, which appears to have exacerbated PTSD sx. Plan: Thorazine 25 mg bid Benztropine 1 mg bid Discontinue Abilify Lexapro 5 mg daily 10/10/21 Colace bid Dulcolax 10 mg HS prn 10/13/21 Increase Benztropine to 2 mg bid 10/14/21 Continue current plan. 10/16/21 Discontinue chlorpromazine Risperdal 2 mg HS and prn I spent minutes with the patient and/or on the patient floor today, greater than?50% of which was spent counseling/coordinating care. Patient educated on: medication risk/benefits and therapeutic strategies Informed Consent: understands and further education needed Reason for contiued inpatient stay Substantial Risk for: harm to self, inability to function and rapid decompensation
[2021-10-16] MEDS: cloZAPine 100 MG TABLET 400 MG PO (23:13)
[2021-10-16] MEDS: LORazepam 0.5 MG TABLET PO (23:14)
[2021-10-16] MEDS: risperiDONE 2 MG TABLET PO (23:15)
[2021-10-16] MEDS: traZODone HCL 100 MG TABLET PO (23:15)
[2021-10-17 06:36] VITALS: BP 100/60; PULSE 85; TEMP 36.9; O2SAT 97
[2021-10-17] MEDS: Benztropine Mesylate 1 MG TABLET 2 MG PO ×2 (08:29→21:33)
[2021-10-17] MEDS: Docusate Sodium 100 MG CAPSULE PO ×2 (08:29→21:33)
[2021-10-17] MEDS: Escitalopram Oxalate 10 MG TABLET PO (08:29)
[2021-10-17] MEDS: Benztropine Mesylate 1 MG TABLET PO (15:17)
[2021-10-17] MEDS: risperiDONE 1 MG TABLET PO (15:17)
--- NOTE | 2021-10-17 16:18 | HO.PSYCHPN ---
Subjective Subjective Date of Service: 10/17/21 Reason For Visit: Schizoaffective D/O Depressed SI w/plan to OD Subjective Notes: Conditional Voluntary Interim History: Continues with voices and shadow people who are tormenting. Chlorpromazine discontinued, Risperdal augment initiated Completed FMLA for pt review. Sometimes I feel outside of myself. Medication Compliance: Yes Side effects from medications: No Attending Groups: Yes Review of Systems Acute medical concerns: No Medical Review of Systems: unchanged Mental Status Exam Mental Status Exam Patient Appearance: Appropriate Patient Orientation: Person, Place, Time and Situation Level of Consciousness: Alert Patient Behavior: Appropriate, Talkative, Cooperative and Good Eye Contact Mood Description: Depressed, Anxious and Apprehensive Affect Description: Flat Patient Cognition Impaired: No Ability to Follow Directions: Good Speech Pattern: Spontaneous Speech Memory Description: Intact Hallucinations: Auditory Delusions: Paranoid Ideation Perceptual Disturbances: Depersonalization and Derealization Thought Process: Distracted Thought Content: positive for Perseveration and positive for Suicidal Ideation Depressive Symptoms: Increased Anxiety, Diff. Making Decisions, Thoughts of /Suicide and Difficulty Concentrating Judgement: Fair Diagnostics Vital Signs (24Hr): Vital Signs - 24 hr 10/16/21 18:00 10/17/21 06:36 Temperature 97.6 F 98.5 F Pulse Rate 98 85 Blood Pressure 144/76 H 100/60 Pulse Oximetry 97 97 Oxygen Delivery Method Room Air Room Air BMI result Body Mass Index 39.4 Labs Results: 10/07/21 17:28 10/07/21 17:28 Medications Medications Current Medications Acetaminophen (Acetaminophen 325 Mg Tablet) 650 mg PO Q6H PRN PRN Reason: Headache/Pain Mild Scale (1-3) Last Admin: 10/09/21 05:39 Dose: 650 mg Al Hydroxide/Mg Hydroxide (Magnesium Hydrox/Alum Hydrox 30 Ml Oral.Susp) 30 ml PO Q6H PRN PRN Reason: Heartburn/Nausea Benztropine Mesylate (Benztropine Mesylate 1 Mg Tablet) 1 mg PO DAILY PRN PRN Reason: akathesia Last Admin: 10/17/21 15:17 Dose: 1 mg Benztropine Mesylate (Benztropine Mesylate 1 Mg Tablet) 2 mg PO BID [facility] Last Admin: 10/17/21 08:29 Dose: 2 mg Bisacodyl (Bisacodyl 5 Mg Tablet.Dr) 10 mg PO BEDTIME PRN PRN Reason: constipation Clozapine (Clozapine 100 Mg Tablet) 400 mg PO BEDTIME [facility] Last Admin: 10/16/21 23:13 Dose: 400 mg Docusate Sodium (Docusate Sodium 100 Mg Capsule) 100 mg PO BID [facility] Last Admin: 10/17/21 08:29 Dose: 100 mg Escitalopram Oxalate (Escitalopram Oxalate 10 Mg Tablet) 10 mg PO DAILY [facility] Last Admin: 10/17/21 08:29 Dose: 10 mg Hydroxyzine HCl (Hydroxyzine Hcl 25 Mg Tablet) 25 mg PO Q6H PRN PRN Reason: Anxiety Lactulose (Lactulose 20 Gm/30 Ml Solution) 20 gm PO Q24H PRN PRN Reason: Constipation Last Admin: 10/16/21 11:32 Dose: 20 gm Lorazepam (Lorazepam 0.5 Mg Tablet) 0.5 mg PO BEDTIME [facility] Last Admin: 10/16/21 23:14 Dose: 0.5 mg Lorazepam (Lorazepam 1 Mg Tablet) 1 mg PO BID PRN PRN Reason: anxiety, agitation Last Admin: 10/16/21 19:06 Dose: 1 mg Magnesium Hydroxide (Milk Of Magnesia 30 Ml Oral.Susp) 30 ml PO DAILY PRN PRN Reason: Constipation Last Admin: 10/15/21 12:03 Dose: 30 ml Melatonin (Melatonin 3 Mg Tablet) 9 mg PO BEDTIME [facility] Last Admin: 10/16/21 23:15 Dose: Not Given Pharmacy Consult (Consult Rx Perform Med Rec) 1 each MISCELLANE ONCE PRN PRN Reason: Consult order Risperidone (Risperidone 2 Mg Tablet) 2 mg PO BEDTIME [facility] Last Admin: 10/16/21 23:15 Dose: 2 mg Risperidone (Risperidone 1 Mg Tablet) 1 mg PO BID PRN PRN Reason: psychotic symptomatology Last Admin: 10/17/21 15:17 Dose: 1 mg Trazodone HCl (Trazodone Hcl 100 Mg Tablet) 100 mg PO BEDTIME [facility] Last Admin: 10/16/21 23:15 Dose: 100 mg Allergies Allergies Allergy/AdvReac Type Severity Reaction Status Date / Time haloperidol [From HALDOL] AdvReac Unknown EYES Verified 10/07/21 16:11 ROLLED BACK Assessment & Plan Assessment & Plan (1) Schizoaffective disorder, depressive type: Status: Acute Code(s): F25.1 - Schizoaffective disorder, depressive type (2) PTSD (post-traumatic stress disorder): Status: Acute Code(s): F43.10 - Post-traumatic stress disorder, unspecified Plan 36 yo female, hx of schizoaffective disorder, depressed and PTSD. Pt recently discharged, stating she left too early as she missed her children and wanted to get home to them. She returns reporting medication compliance, no relief from sx, SI, anxiety, AH and depressive sx. Possible stressors include mother in law who has dementia needing to leave her home as she is progressing and has had more agitation within her illness and brother in [place] who is on trial this week for child molestation, which appears to have exacerbated PTSD sx. Plan: Thorazine 25 mg bid Benztropine 1 mg bid Discontinue Abilify Lexapro 5 mg daily 10/10/21 Colace bid Dulcolax 10 mg HS prn 10/13/21 Increase Benztropine to 2 mg bid 10/17/21 Risperdal titration to augment Clozapine I spent minutes with the patient and/or on the patient floor today, greater than?50% of which was spent counseling/coordinating care. Patient educated on: medication risk/benefits and therapeutic strategies Informed Consent: understands and further education needed Reason for contiued inpatient stay Substantial Risk for: harm to self, inability to function and rapid decompensation
[2021-10-17 16:34] VITALS: BP 125/89; PULSE 100
[2021-10-17] MEDS: risperiDONE 2 MG TABLET PO (19:23)
[2021-10-17] MEDS: cloZAPine 100 MG TABLET 400 MG PO (21:34)
[2021-10-17] MEDS: LORazepam 0.5 MG TABLET PO (21:34)
[2021-10-17] MEDS: Melatonin 3 MG TABLET 9 MG PO ×2 (21:34→22:31)
[2021-10-17] MEDS: traZODone HCL 100 MG TABLET PO (21:34)
[2021-10-18 08:55] VITALS: BP 118/58; PULSE 80; RESP 16; TEMP 36.7; O2SAT 96
[2021-10-18] MEDS: Docusate Sodium 100 MG CAPSULE PO ×2 (09:04→21:21)
[2021-10-18] MEDS: Benztropine Mesylate 1 MG TABLET 2 MG PO ×2 (09:04→21:20)
[2021-10-18] MEDS: Escitalopram Oxalate 10 MG TABLET PO (09:04)
[2021-10-18] MEDS: risperiDONE 2 MG TABLET PO (09:04)
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
[2021-10-18] MEDS: Benztropine Mesylate 1 MG TABLET PO (14:26)
[2021-10-18] MEDS: risperiDONE 1 MG TABLET PO (14:26)
[2021-10-18 16:13] VITALS: BP 123/91; PULSE 98; RESP 18; TEMP 36.8; O2SAT 97
[2021-10-18] MEDS: risperiDONE 3 MG TABLET PO (19:58)
[2021-10-18] MEDS: Melatonin 3 MG TABLET 9 MG PO (21:21)
[2021-10-18] MEDS: traZODone HCL 100 MG TABLET PO (21:21)
[2021-10-18] MEDS: LORazepam 0.5 MG TABLET PO (21:21)
[2021-10-18] MEDS: cloZAPine 100 MG TABLET 400 MG PO (21:21)
[2021-10-18] MEDS: hydrOXYzine HCL 25 MG TABLET PO (22:19)
[2021-10-19 09:02] VITALS: BP 131/79; PULSE 93; TEMP 36.4
[2021-10-19] MEDS: Benztropine Mesylate 1 MG TABLET 2 MG PO ×2 (09:04→19:20)
[2021-10-19] MEDS: Escitalopram Oxalate 10 MG TABLET PO (09:05)
[2021-10-19] MEDS: Docusate Sodium 100 MG CAPSULE PO ×2 (09:05→21:35)
[2021-10-19] MEDS: Acetaminophen 325 MG TABLET 650 MG PO (09:05)
[2021-10-19] MEDS: risperiDONE 3 MG TABLET PO (09:05)
[2021-10-19 16:17] VITALS: BP 124/74; PULSE 74; TEMP 36.7; O2SAT 97
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
[2021-10-19] MEDS: hydrOXYzine HCL 25 MG TABLET PO (18:43)
[2021-10-19] MEDS: Melatonin 3 MG TABLET 9 MG PO ×2 (19:20→21:36)
[2021-10-19] MEDS: cloZAPine 25 MG TABLET 425 MG PO (19:20)
[2021-10-19] MEDS: LORazepam 0.5 MG TABLET PO (21:35)
[2021-10-19] MEDS: traZODone HCL 100 MG TABLET PO (21:36)
--- NOTE | 2021-10-20 08:15 | PC.NURSE ---
pt refused morning labs.
[2021-10-20 09:26] VITALS: BP 130/72; PULSE 101; TEMP 36.4; O2SAT 99
[2021-10-20] MEDS: Docusate Sodium 100 MG CAPSULE PO ×2 (09:30→21:10)
[2021-10-20] MEDS: Benztropine Mesylate 1 MG TABLET 2 MG PO ×2 (09:30→21:10)
[2021-10-20] MEDS: Escitalopram Oxalate 10 MG TABLET PO (09:30)
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
[2021-10-20 18:00] VITALS: BP 140/92; PULSE 105; TEMP 37.1; O2SAT 97
[2021-10-20] MEDS: cloZAPine 100 MG TABLET 450 MG PO (21:09)
[2021-10-20] MEDS: LORazepam 0.5 MG TABLET PO (21:10)
[2021-10-20] MEDS: Melatonin 3 MG TABLET 9 MG PO (21:10)
[2021-10-20] MEDS: traZODone HCL 100 MG TABLET PO (21:10)
[2021-10-21 06:00] VITALS: BP 108/59; PULSE 97; RESP 18
[2021-10-21 07:41] LABS: Neut%MD 50.4 %
[2021-10-21] MEDS: Escitalopram Oxalate 10 MG TABLET PO (08:52)
[2021-10-21] MEDS: Docusate Sodium 100 MG CAPSULE PO ×2 (08:52→21:08)
[2021-10-21] MEDS: Benztropine Mesylate 1 MG TABLET 2 MG PO ×2 (08:52→21:08)
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
[2021-10-21 16:06] VITALS: BP 121/70; PULSE 105; TEMP 36.7; O2SAT 94
[2021-10-21] MEDS: risperiDONE 1 MG TABLET PO (18:44)
[2021-10-21] MEDS: Benztropine Mesylate 1 MG TABLET PO (18:45)
[2021-10-21] MEDS: LORazepam 0.5 MG TABLET PO (21:07)
[2021-10-21] MEDS: Melatonin 3 MG TABLET 9 MG PO (21:07)
[2021-10-21] MEDS: traZODone HCL 100 MG TABLET PO (21:08)
[2021-10-21] MEDS: cloZAPine 100 MG TABLET 450 MG PO (21:08)
[2021-10-22 06:00] VITALS: BP 111/68; PULSE 91; RESP 18
[2021-10-22] MEDS: Escitalopram Oxalate 10 MG TABLET PO (08:40)
[2021-10-22] MEDS: Benztropine Mesylate 1 MG TABLET 2 MG PO ×2 (08:40→21:40)
[2021-10-22] MEDS: Docusate Sodium 100 MG CAPSULE PO ×2 (08:40→21:41)
[2021-10-22] MEDS: risperiDONE 1 MG TABLET PO (16:14)
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
[2021-10-22] MEDS: cloZAPine 100 MG TABLET 450 MG PO (21:36)
[2021-10-22] MEDS: Melatonin 3 MG TABLET 9 MG PO (21:39)
[2021-10-22] MEDS: traZODone HCL 100 MG TABLET PO (21:41)
[2021-10-22] MEDS: LORazepam 0.5 MG TABLET PO (21:42)
[2021-10-23 08:02] VITALS: BP 97/69; PULSE 98; TEMP 36.4; O2SAT 98
[2021-10-23] MEDS: Docusate Sodium 100 MG CAPSULE PO ×2 (08:11→21:42)
[2021-10-23] MEDS: LORazepam 1 MG TABLET PO ×2 (08:11→17:38)
[2021-10-23] MEDS: Escitalopram Oxalate 10 MG TABLET PO (08:11)
[2021-10-23] MEDS: Benztropine Mesylate 1 MG TABLET 2 MG PO ×2 (08:11→21:42)
[2021-10-23 15:59] LABS: Neut%MD 64.7 %; Neutrophils Absolute Auto 6.2 x10*3/uL (2.0-8.3); WBCANC 9.5 X10*3/uL
[2021-10-23] MEDS: risperiDONE 1 MG TABLET PO (16:13)
[2021-10-23] MEDS: Benztropine Mesylate 1 MG TABLET PO (16:13)
[2021-10-23 21:30] VITALS: BP 121/62; PULSE 102; TEMP 36.6; O2SAT 99
[2021-10-23] MEDS: cloZAPine 100 MG TABLET 450 MG PO (21:40)
[2021-10-23] MEDS: LORazepam 0.5 MG TABLET PO (21:41)
[2021-10-23] MEDS: traZODone HCL 100 MG TABLET PO (21:42)
[2021-10-23] MEDS: Melatonin 3 MG TABLET 9 MG PO (21:43)
--- NOTE | 2021-10-24 | ECG_ITS ---
Test Reason : medication Blood Pressure : / mmHG Vent. Rate : 102 BPM Atrial Rate : 102 BPM P-R Int : 126 ms QRS Dur : 092 ms QT Int : 348 ms P-R-T Axes : 051 009 012 degrees QTc Int : 453 ms Sinus tachycardia Minimal voltage criteria for LVH, may be normal variant ( R in aVL ) T wave abnormality, consider anterior ischemia Abnormal ECG When compared with ECG of 08-OCT-2021 11:50, Inverted T waves have replaced nonspecific T wave abnormality in Anterior leads Heart rate has increased Referred By: Iram Adan Electronically Signed By:HARSHA REID
[2021-10-24 04:18] LABS: Norclozapine 668 mcg/L (25-400)
[2021-10-24 06:00] VITALS: BP 113/66; PULSE 94; RESP 18; TEMP 37.1; O2SAT 98
[2021-10-24] MEDS: Benztropine Mesylate 1 MG TABLET 2 MG PO ×2 (08:10→21:10)
[2021-10-24] MEDS: Docusate Sodium 100 MG CAPSULE PO ×2 (08:10→21:11)
[2021-10-24] MEDS: Escitalopram Oxalate 10 MG TABLET PO (08:10)
[2021-10-24] MEDS: risperiDONE 1 MG TABLET PO ×2 (08:39→16:30)
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
--- NOTE | 2021-10-24 13:15 | PC.NURSE ---
tiger text to celie re elevated norclozapine level 668. clozapine level still pending.
[2021-10-24 16:20] VITALS: BP 118/74; PULSE 105; TEMP 37.1
[2021-10-24] MEDS: LORazepam 1 MG TABLET PO (16:30)
[2021-10-24] MEDS: Benztropine Mesylate 1 MG TABLET PO (16:33)
[2021-10-24] MEDS: traZODone HCL 100 MG TABLET PO (21:10)
[2021-10-24] MEDS: Melatonin 3 MG TABLET 9 MG PO (21:10)
[2021-10-24] MEDS: LORazepam 0.5 MG TABLET PO (21:11)
[2021-10-24] MEDS: lamoTRIgine 25 MG TABLET PO (21:11)
[2021-10-24] MEDS: cloZAPine 100 MG TABLET 450 MG PO (21:12)
[2021-10-25 06:00] VITALS: BP 109/64; PULSE 97; RESP 18; TEMP 36.7; O2SAT 98
[2021-10-25] MEDS: Docusate Sodium 100 MG CAPSULE PO ×2 (08:49→21:34)
[2021-10-25] MEDS: Escitalopram Oxalate 5 MG TABLET PO (08:49)
[2021-10-25] MEDS: Benztropine Mesylate 1 MG TABLET 2 MG PO ×2 (08:49→21:33)
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
[2021-10-25 16:56] VITALS: BP 118/79; PULSE 102
[2021-10-25] MEDS: Magnesium Hydrox/Alum Hydrox 30 ML ORAL.SUSP PO (18:11)
[2021-10-25] MEDS: LORazepam 0.5 MG TABLET PO (21:33)
[2021-10-25] MEDS: traZODone HCL 100 MG TABLET PO (21:33)
[2021-10-25] MEDS: Atorvastatin Calcium 20 MG TABLET PO (21:34)
[2021-10-25] MEDS: lamoTRIgine 25 MG TABLET PO (21:34)
[2021-10-25] MEDS: cloZAPine 25 MG TABLET 450 MG PO (21:34)
[2021-10-25] MEDS: Melatonin 3 MG TABLET 9 MG PO (22:42)
[2021-10-26] MEDS: Docusate Sodium 100 MG CAPSULE PO ×2 (09:33→21:29)
[2021-10-26] MEDS: Benztropine Mesylate 1 MG TABLET 2 MG PO ×2 (09:33→21:28)
[2021-10-26] MEDS: Escitalopram Oxalate 5 MG TABLET PO (09:33)
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
[2021-10-26 18:00] VITALS: BP 112/74; PULSE 96; RESP 16; TEMP 37; O2SAT 98
[2021-10-26] MEDS: Melatonin 3 MG TABLET 9 MG PO (21:28)
[2021-10-26] MEDS: lamoTRIgine 25 MG TABLET PO (21:28)
[2021-10-26] MEDS: cloZAPine 100 MG TABLET 450 MG PO (21:30)
[2021-10-26] MEDS: traZODone HCL 100 MG TABLET PO (21:31)
[2021-10-26] MEDS: Atorvastatin Calcium 20 MG TABLET PO (21:31)
[2021-10-26] MEDS: LORazepam 0.5 MG TABLET PO (21:32)
[2021-10-27] MEDS: Benztropine Mesylate 1 MG TABLET 2 MG PO ×2 (09:28→21:24)
[2021-10-27] MEDS: Escitalopram Oxalate 5 MG TABLET PO (09:28)
[2021-10-27] MEDS: Docusate Sodium 100 MG CAPSULE PO ×2 (09:28→21:24)
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
[2021-10-27] MEDS: risperiDONE 1 MG TABLET PO (17:14)
[2021-10-27 18:00] VITALS: BP 127/74; PULSE 112; RESP 16; TEMP 36.9; O2SAT 97
[2021-10-27] MEDS: Melatonin 3 MG TABLET 9 MG PO (21:23)
[2021-10-27] MEDS: cloZAPine 100 MG TABLET 450 MG PO (21:23)
[2021-10-27] MEDS: traZODone HCL 100 MG TABLET PO (21:23)
[2021-10-27] MEDS: lamoTRIgine 25 MG TABLET PO (21:23)
[2021-10-27] MEDS: Atorvastatin Calcium 20 MG TABLET PO (21:23)
[2021-10-28 06:00] VITALS: BP 110/67; PULSE 99; RESP 18; TEMP 36.8; O2SAT 98
[2021-10-28] MEDS: Docusate Sodium 100 MG CAPSULE PO ×2 (08:39→21:35)
[2021-10-28] MEDS: Escitalopram Oxalate 5 MG TABLET PO (08:39)
[2021-10-28] MEDS: Benztropine Mesylate 1 MG TABLET 2 MG PO ×2 (08:39→21:36)
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
[2021-10-28 11:13] LABS: MANUAL DIFF FLAG NO
[2021-10-28 11:21] LABS: Basophils Absolute Auto 0.1 X10*3/uL (0.0-0.2); Basophils Percent Auto 0.7 % (0-2); Eosinophils Absolute Auto 0.2 X10*3/uL (0.0-0.4); Eosinophils Percent Auto 2.3 % (0-4); Hematocrit 40.3 % (37.0-47.0); Hemoglobin 13.1 g/dl (12.0-16.0); Imm Gran Abs Auto 0.07 X10*3/uL (0.00-0.03); Imm Gran Pct Auto 0.9 % (0.0-0.4); Lymphocytes Absolute Auto 2.9 X10*3/uL (1.2-4.9); Lymphocytes Percent Auto 35.2 % (20-40); Mean Corpuscular HGB Conc 32.5 g/dl (31.0-35.0); Mean Corpuscular Hemoglobin 28.7 pg (27.0-33.0); Mean Corpuscular Volume 88.4 fL (80.0-98.0); Mean Platelet Volume 10.8 fL (9.4-12.3); Monocytes Absolute Auto 0.5 X10*3/uL (0.1-1.2); Monocytes Percent Auto 5.8 % (2-11); Neutrophils Absolute Auto 4.5 x10*3/uL (2.0-8.3); Neutrophils Percent Auto 55.1 % (45-73); Platelet Count 280 X10*3/uL (160-400); Red Blood Count 4.56 X10*6/uL (4.20-5.50); Red Cell Distribution Width 14.3 % (11.0-16.0); White Blood Count 8.2 X10*3/uL (4.8-10.8)
[2021-10-28] MEDS: risperiDONE 1 MG TABLET PO (19:42)
[2021-10-28 21:35] VITALS: BP 124/77; PULSE 105; TEMP 36.3
[2021-10-28] MEDS: Melatonin 3 MG TABLET 9 MG PO (21:35)
[2021-10-28] MEDS: Atorvastatin Calcium 20 MG TABLET PO (21:36)
[2021-10-28] MEDS: lamoTRIgine 25 MG TABLET PO (21:36)
[2021-10-28] MEDS: traZODone HCL 100 MG TABLET PO (21:36)
[2021-10-28] MEDS: cloZAPine 100 MG TABLET 450 MG PO (21:37)
[2021-10-29 06:00] VITALS: BP 117/79; PULSE 104; RESP 18; TEMP 36.6; O2SAT 97
[2021-10-29] MEDS: Docusate Sodium 100 MG CAPSULE PO (09:19)
[2021-10-29] MEDS: Benztropine Mesylate 1 MG TABLET 2 MG PO (09:19)
[2021-10-29] MEDS: Escitalopram Oxalate 5 MG TABLET PO (09:19)
[2021-10-29] MEDS: risperiDONE 1 MG TABLET PO (13:22)
--- NOTE | 2021-10-29 13:51 | PM.PSYDC ---
DS: Providers Provider Date of Service: 10/29/21 Date of admission: 10/08/21 10:27 Date of discharge: 10/29/21 Primary care physician: Carlos Degroot III, MD Admitting clinician: Iram Adan Attending physician on discharge: Emil Donis DS: Diagnosis Discharge Diagnosis (1) Schizoaffective disorder, depressive type: Status: Acute (2) PTSD (post-traumatic stress disorder): Status: Acute DS: Medications Discharge Medications Home Medications: Home Medications Medication Instructions Recorded Confirmed melatonin 3 mg tablet 10 mg PO BEDTIME 09/01/21 10/07/21 Previous Rx's Medication Instructions Recorded docusate sodium 100 mg capsule 100 mg PO BID #60 caps 09/13/21 atorvastatin 20 mg tablet 20 mg PO BEDTIME 30 days #30 tabs 10/29/21 benztropine 2 mg tablet 2 mg PO BID 30 days #60 tabs 10/29/21 clozapine 100 mg tablet 450 mg PO BEDTIME 30 days #135 tabs 10/29/21 escitalopram oxalate 5 mg tablet 5 mg PO DAILY 30 days #30 tabs 10/29/21 lamotrigine 25 mg tablet See Rx Instructions .Route 10/29/21 .COMPLEX #52 tabs lorazepam 1 mg tablet 1 mg PO BID PRN Anxiety 30 days 10/29/21 #60 tabs risperidone 1 mg tablet 1 mg PO Q4H PRN auditory 10/29/21 hallucinations 30 days #30 tabs senna leaf extract 176 mg/5 mL 15 ml PO BEDTIME 30 days #450 mL 10/29/21 oral syrup (senna) trazodone 100 mg tablet 100 mg PO BEDTIME 30 days #30 tabs 10/29/21 Data Data Completed and Pending Completed studies during hospitalization [Text1]: 10/20/21 10/23/21 10/28/21 15:27 15:49 11:08 WBC 8.2 RBC 4.56 Hgb 13.1 Hct 40.3 MCV 88.4 MCH 28.7 MCHC 32.5 RDW 14.3 Plt Count 280 MPV 10.8 Immature Gran % (Auto) 0.9 H Neut % (Auto) 55.1 Lymph % (Auto) 35.2 [place] % (Auto) 5.8 Eos % (Auto) 2.3 Baso % (Auto) 0.7 Lymph # (Auto) 2.9 [place] # (Auto) 0.5 Eos # (Auto) 0.2 Baso # (Auto) 0.1 Abs Immat Gran (auto) 0.07 H Absolute Neuts (auto) 6.2 4.5 Absolute Nucleated RBC 0.000 Nucleated RBC % (auto) 0.0 Clozapine Norclozapine 668 H 10/28/21 11:08 WBC RBC Hgb Hct MCV MCH MCHC RDW Plt Count MPV Immature Gran % (Auto) Neut % (Auto) Lymph % (Auto) [place] % (Auto) Eos % (Auto) Baso % (Auto) Lymph # (Auto) [place] # (Auto) Eos # (Auto) Baso # (Auto) Abs Immat Gran (auto) Absolute Neuts (auto) Absolute Nucleated RBC Nucleated RBC % (auto) Clozapine Pending Norclozapine Pending DS: Summary Time Spent with Patient Time attestation: Total time spent providing and/or coordinating discharge services: Discharge Plan Discharge Patient Disposition: Home, Self-Care Discharge Diagnosis: Schizoaffective disorder, depressed type Referrals: Carlos Degroot III, MD [Primary Care Provider] - 1 Week (PT REFUSE TO SIGN FOR PCP APPOINTMENT.) Discharge Medications: New atorvastatin 20 mg Tablet 20 mg PO BEDTIME 30 Days Qty: 30 0RF benztropine 2 mg tablet 2 mg PO BID 30 Days Qty: 60 0RF clozapine 100 mg Tablet 450 mg PO BEDTIME 30 Days Qty: 135 0RF escitalopram oxalate 5 mg Tablet 5 mg PO DAILY 30 Days Qty: 30 0RF lamotrigine 25 mg Tablet See Rx Instructions .ROUTE .COMPLEX Qty: 52 0RF Rx Instructions: take 1 tab at bedtime for 8 days; then take 1 tab BID risperidone 1 mg Tablet 1 mg PO Q4H PRN (Reason: auditory hallucinations) 30 Days Qty: 30 0RF senna leaf extract [senna] 176 mg/5 mL Syrup 15 ml PO BEDTIME 30 Days Qty: 450 0RF Rx Instructions: hold for loose stool Continued melatonin 3 mg Tablet 10 mg PO BEDTIME docusate sodium 100 mg Capsule 100 mg PO BID Qty: 60 0RF trazodone 100 mg tablet 100 mg PO BEDTIME 30 Days Qty: 30 0RF Changed lorazepam 1 mg tablet 1 mg PO BID PRN (Reason: Anxiety) 30 Days Qty: 60 0RF Discontinued aripiprazole [Abilify] 5 mg Tablet 5 mg PO DAILY Qty: 30 0RF benztropine 1 mg Tablet 1 mg PO BID PRN (Reason: EPS) Qty: 60 0RF clozapine 100 mg Tablet 400 mg PO BEDTIME Qty: 30 0RF chlorpromazine 25 mg tablet 25 mg PO BID PRN (Reason: voices) Qty: 30 0RF Discharge Orders: Discharge Order (Routine); Ordered 10/29/21 Ordered By: Emil Donis Diet: Regular diet Activity on Discharge: As tolerated Stand Alone Forms: Patient Portal Discharge page Care Plan Goals: Maintain mood and safe behaviors Take medications as prescribed Practice coping skills Continue with outpatient providers and reach out to them as needed Health Concerns: Mood stability and behaviors High Cholesterol Plan of Treatment: Follow up with your PCP, psychiatric provider and other outpatient providers regarding above concerns Take medications as prescribed Assessment: Risk assessment at time of discharge:? Patient was interviewed prior to discharge and found to be fully oriented and without any SI or HI. Patient has insight and demonstrates good judgment in terms of wanting to pursue treatment. Patient is not in imminent risk of harm to self or others and has a safety plan that includes presenting to the closest ER or calling 911 if feeling unsafe.? Patient has been observed closely by nursing and unit staff throughout admission; patient has not engaged in any behaviors that suggest dangerousness to self or others and has demonstrated appropriate behaviors and impulse control
[2021-10-30 07:27] LABS: Clozapine (Clozaril) 990
[2021-10-31 17:13] LABS: Norclozapine 682 mcg/L (25-400)
[2021-11-01 07:38] LABS: Clozapine (Clozaril) 1044
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
== END 2021-10-29 17:02 | disposition home or self-care (01) | DRG 750 ==
LOC: HO.ED 18:04 → HO.PM5 10-08 11:37
PROVIDERS: Physician Assistant; Psychiatry & Neurology Psychiatry; Admitting Provider Psychiatry & Neurology Psychiatry; Emergency Provider Internal Medicine; PCP Internal Medicine; Visit Provider Clinical Nurse Specialist Psychiatric/Mental Health, Adult
DX: F25.1 Schizoaffective disorder, depressive type (principal); R45.851 Suicidal ideations; F43.10 Post-traumatic stress disorder, unspecified; E66.9 Obesity, unspecified; K59.00 Constipation, unspecified; Z68.39 Body mass index [BMI] 39.0-39.9, adult; Z20.822 Contact with and (suspected) exposure to COVID-19; Z87.891 Personal history of nicotine dependence; Z88.8 Allergy status to other drugs, medicaments and biological substances; Z79.899 Other long term (current) drug therapy
CPT/HCPCS: 36415; 80048; 80076; 80159; 80307; 81001; 81025; 82077; 83735; 85025; 85048; 87635; 93005; 99285

== ENCOUNTER 2021-11-26 12:20 | Outpatient (REF) | payer BC, SELFPAY ==
[2021-11-26 13:59] LABS: MANUAL DIFF FLAG NO
[2021-11-26 14:06] LABS: Basophils Absolute Auto 0.1 X10*3/uL (0.0-0.2); Basophils Percent Auto 0.9 % (0-2); Eosinophils Absolute Auto 0.2 X10*3/uL (0.0-0.4); Eosinophils Percent Auto 2.3 % (0-4); Hematocrit 41.3 % (37.0-47.0); Hemoglobin 13.4 g/dl (12.0-16.0); Imm Gran Abs Auto 0.03 X10*3/uL (0.00-0.03); Imm Gran Pct Auto 0.4 % (0.0-0.4); Lymphocytes Percent Auto 39.2 % (20-40); Mean Corpuscular HGB Conc 32.4 g/dl (31.0-35.0); Mean Corpuscular Hemoglobin 28.6 pg (27.0-33.0); Mean Corpuscular Volume 88.2 fL (80.0-98.0); Mean Platelet Volume 11.2 fL (9.4-12.3); Monocytes Absolute Auto 0.4 X10*3/uL (0.1-1.2); Monocytes Percent Auto 5.7 % (2-11); Neutrophils Absolute Auto 3.9 x10*3/uL (2.0-8.3); Neutrophils Percent Auto 51.5 % (45-73); Platelet Count 286 X10*3/uL (160-400); Red Blood Count 4.68 X10*6/uL (4.20-5.50); Red Cell Distribution Width 14.3 % (11.0-16.0); White Blood Count 7.7 X10*3/uL (4.8-10.8)
== END 2021-11-26 12:21 | disposition home or self-care (01) ==
LOC: HO.LABR 12:20
PROVIDERS: PCP Internal Medicine; Visit Provider Psychiatry & Neurology Psychiatry
DX: Z79.899 Other long term (current) drug therapy (principal)
CPT/HCPCS: 36415; 85025

== ENCOUNTER 2021-12-21 14:09 | Outpatient (REF) | payer BC, SELFPAY ==
[2021-12-21 15:33] LABS: MANUAL DIFF FLAG NO
[2021-12-21 15:35] LABS: Basophils Absolute Auto 0.1 X10*3/uL (0.0-0.2); Eosinophils Absolute Auto 0.2 X10*3/uL (0.0-0.4); Hematocrit 42.6 % (37.0-47.0); Hemoglobin 13.8 g/dl (12.0-16.0); Imm Gran Abs Auto 0.03 X10*3/uL (0.00-0.03); Imm Gran Pct Auto 0.4 % (0.0-0.4); Lymphocytes Absolute Auto 3.3 X10*3/uL (1.2-4.9); Lymphocytes Percent Auto 44.7 % (20-40); Mean Corpuscular HGB Conc 32.4 g/dl (31.0-35.0); Mean Corpuscular Hemoglobin 28.9 pg (27.0-33.0); Mean Corpuscular Volume 89.1 fL (80.0-98.0); Mean Platelet Volume 11.5 fL (9.4-12.3); Monocytes Absolute Auto 0.4 X10*3/uL (0.1-1.2); Monocytes Percent Auto 5.9 % (2-11); Neutrophils Absolute Auto 3.3 x10*3/uL (2.0-8.3); Platelet Count 263 X10*3/uL (160-400); Red Blood Count 4.78 X10*6/uL (4.20-5.50); Red Cell Distribution Width 14.5 % (11.0-16.0); White Blood Count 7.3 X10*3/uL (4.8-10.8)
== END 2021-12-21 14:10 | disposition home or self-care (01) ==
LOC: HO.HMGCLR 14:09
PROVIDERS: PCP Internal Medicine; Visit Provider Psychiatry & Neurology Psychiatry
DX: Z79.899 Other long term (current) drug therapy (principal)
CPT/HCPCS: 36415; 85025

== ENCOUNTER 2022-01-25 14:17 | Outpatient (REF) | payer BC, SELFPAY ==
[2022-01-25 15:33] LABS: MANUAL DIFF FLAG NO
[2022-01-25 15:35] LABS: Basophils Absolute Auto 0.1 X10*3/uL (0.0-0.2); Basophils Percent Auto 1.1 % (0-2); Eosinophils Absolute Auto 0.1 X10*3/uL (0.0-0.4); Hematocrit 39.9 % (37.0-47.0); Hemoglobin 13.1 g/dl (12.0-16.0); Imm Gran Abs Auto 0.01 X10*3/uL (0.00-0.03); Imm Gran Pct Auto 0.2 % (0.0-0.4); Lymphocytes Absolute Auto 2.5 X10*3/uL (1.2-4.9); Mean Corpuscular HGB Conc 32.8 g/dl (31.0-35.0); Mean Corpuscular Hemoglobin 28.7 pg (27.0-33.0); Mean Corpuscular Volume 87.5 fL (80.0-98.0); Mean Platelet Volume 11.3 fL (9.4-12.3); Monocytes Absolute Auto 0.6 X10*3/uL (0.1-1.2); Monocytes Percent Auto 10.9 % (2-11); Neut%MD 41.8 %; Neutrophils Absolute Auto 2.3 x10*3/uL (2.0-8.3); Neutrophils Percent Auto 41.8 % (45-73); Platelet Count 258 X10*3/uL (160-400); Red Blood Count 4.56 X10*6/uL (4.20-5.50); Red Cell Distribution Width 14.4 % (11.0-16.0); WBCANC 5.6 X10*3/uL; White Blood Count 5.6 X10*3/uL (4.8-10.8)
== END 2022-01-25 14:18 | disposition home or self-care (01) ==
LOC: HO.HMGCLR 14:17
PROVIDERS: PCP Internal Medicine; Visit Provider Psychiatry & Neurology Psychiatry
DX: Z51.81 Encounter for therapeutic drug level monitoring (principal)
CPT/HCPCS: 36415; 85025

== ENCOUNTER 2022-03-08 14:12 | Outpatient (REF) | payer BC, SELFPAY ==
[2022-03-08 15:07] LABS: MANUAL DIFF FLAG NO
[2022-03-08 15:08] LABS: Basophils Absolute Auto 0.1 X10*3/uL (0.0-0.2); Basophils Percent Auto 1.1 % (0-2); Eosinophils Absolute Auto 0.2 X10*3/uL (0.0-0.4); Eosinophils Percent Auto 2.4 % (0-4); Hematocrit 41.2 % (37.0-47.0); Hemoglobin 13.6 g/dl (12.0-16.0); Imm Gran Abs Auto 0.04 X10*3/uL (0.00-0.03); Imm Gran Pct Auto 0.5 % (0.0-0.4); Lymphocytes Absolute Auto 3.3 X10*3/uL (1.2-4.9); Lymphocytes Percent Auto 43.5 % (20-40); Mean Corpuscular Hemoglobin 29.1 pg (27.0-33.0); Mean Platelet Volume 11.1 fL (9.4-12.3); Monocytes Absolute Auto 0.5 X10*3/uL (0.1-1.2); Monocytes Percent Auto 6.2 % (2-11); Neutrophils Absolute Auto 3.5 x10*3/uL (2.0-8.3); Neutrophils Percent Auto 46.3 % (45-73); Platelet Count 263 X10*3/uL (160-400); Red Blood Count 4.68 X10*6/uL (4.20-5.50); White Blood Count 7.6 X10*3/uL (4.8-10.8)
== END 2022-03-08 14:13 | disposition home or self-care (01) ==
LOC: HO.HMGCLR 14:12
PROVIDERS: PCP Internal Medicine; Visit Provider Psychiatry & Neurology Psychiatry
DX: Z79.899 Other long term (current) drug therapy (principal)
CPT/HCPCS: 36415; 85025

== ENCOUNTER 2022-04-18 14:27 | Outpatient (REF) | payer BC, SELFPAY ==
[2022-04-18 16:35] LABS: MANUAL DIFF FLAG NO
[2022-04-18 16:43] LABS: Basophils Absolute Auto 0.1 X10*3/uL (0.0-0.2); Basophils Percent Auto 0.9 % (0-2); Eosinophils Absolute Auto 0.1 X10*3/uL (0.0-0.4); Eosinophils Percent Auto 2.1 % (0-4); Hematocrit 42.7 % (37.0-47.0); Hemoglobin 13.9 g/dl (12.0-16.0); Imm Gran Abs Auto 0.02 X10*3/uL (0.00-0.03); Imm Gran Pct Auto 0.3 % (0.0-0.4); Lymphocytes Absolute Auto 3.5 X10*3/uL (1.2-4.9); Lymphocytes Percent Auto 51.3 % (20-40); Mean Corpuscular HGB Conc 32.6 g/dl (31.0-35.0); Mean Corpuscular Hemoglobin 29.4 pg (27.0-33.0); Mean Corpuscular Volume 90.5 fL (80.0-98.0); Mean Platelet Volume 11.5 fL (9.4-12.3); Monocytes Absolute Auto 0.4 X10*3/uL (0.1-1.2); Monocytes Percent Auto 6.1 % (2-11); Neutrophils Absolute Auto 2.7 x10*3/uL (2.0-8.3); Neutrophils Percent Auto 39.3 % (45-73); Platelet Count 271 X10*3/uL (160-400); Red Blood Count 4.72 X10*6/uL (4.20-5.50); Red Cell Distribution Width 14.4 % (11.0-16.0); White Blood Count 6.7 X10*3/uL (4.8-10.8)
== END 2022-04-18 14:28 | disposition home or self-care (01) ==
LOC: HO.HMGCLR 14:27
PROVIDERS: Visit Provider Psychiatry & Neurology Psychiatry
DX: Z51.81 Encounter for therapeutic drug level monitoring (principal)
CPT/HCPCS: 36415; 85025; 85048

== ENCOUNTER 2022-04-21 19:06 | Inpatient (IN) | payer BC, SELFPAY ==
--- NOTE | 2022-04-21 19:14 | ED_ITS ---
HPI - Psych General Chief Complaint: Psychiatric Symptoms <ANSELMO Yoo - Last Filed: 04/21/22 19:19> Stated Complaint: SI <ANSELMO Yoo - Last Filed: 04/21/22 19:19> Time Seen by Provider: 04/21/22 19:33 <ANSELMO Yoo - Last Filed: 04/21/22 19:19> Source: patient <Jennifer Albert MD - Last Filed: 04/21/22 21:44> Mode of arrival: ambulatory <Jennifer Albert MD - Last Filed: 04/21/22 21:44> Limitations: no limitations <Jennifer Albert MD - Last Filed: 04/21/22 21:44> History of Present Illness HPI Narrative: Patient comes in the emergency room complaining of visual and auditory hallucinations. Patient states that the voices are telling her to hurt herself. Patient states that she is not homicidal. Patient states that she did not ingest any medications or tried hurting herself in any way prior to arrival. Patient has had this hallucinations in the past. <Jennifer Albert MD - Last Filed: 04/21/22 21:44> Related Data Home Medications: Home Medications Medication Instructions Recorded Confirmed melatonin 3 mg tablet 9 mg PO BEDTIME 09/01/21 04/21/22 clozapine 100 mg tablet 500 mg PO BEDTIME 04/21/22 04/21/22 Previous Rx's Medication Instructions Recorded benztropine 2 mg tablet 2 mg PO BID 30 days #60 tabs 10/29/21 lamotrigine 25 mg tablet See Rx Instructions .Route 10/29/21 .COMPLEX #52 tabs lorazepam 1 mg tablet 1 mg PO BID PRN Anxiety 30 days 10/29/21 #60 tabs risperidone 1 mg tablet 1 mg PO Q4H PRN auditory 10/29/21 hallucinations 30 days #30 tabs trazodone 100 mg tablet 100 mg PO BEDTIME 30 days #30 tabs 10/29/21 <ANSELMO Yoo - Last Filed: 04/21/22 19:19> Allergies/Adverse Reactions: Allergies Allergy/AdvReac Type Severity Reaction Status Date / Time haloperidol [From HALDOL] AdvReac Unknown EYES Verified 10/07/21 16:11 ROLLED BACK <ANSELMO Yoo - Last Filed: 04/21/22 19:19> Review of Systems Review of Systems: Constitutional : No Weight loss, No Fever, No Chills, No Night Sweats, No Fatigue, No Malaise ENT/Mouth : No Hearing loss, No Ear Pain, No Nasal Congestion, No Sinus Pain, No Hoarseness, No sore throat, No Rhinorrhea, No Swallowing Difficulty Eyes: No Eye Pain, No Swelling, No Redness, No Foreign Body, No Discharge, No Vision Changes Cardiovascular : No Chest Pain, No SOB, No Dyspnea on Exertion, No Orthopnea, No Edema, No Palpitations Respiratory : No Cough, No Sputum, No Wheezing, No Smoke Exposure, No Dyspnea Gastrointestinal : No Nausea, No Vomiting, No Diarrhea, No Constipation, No abdominal Pain, No Hematochezia, No Melena Genitourinary : no irregular bleeding, No Dysuria, No Urinary Frequency, No Hematuria, No Urinary Incontinence, No Urgency, No Flank Pain, No Urinary Flow Changes, No Hesitancy Musculoskeletal : No joint pain, No Myalgias, No Joint Swelling Skin : No Skin Lesions, No rash Neuro : No Weakness, No Numbness, No Paresthesias, No Loss of Consciousness, No Dizziness, No Headache Psych : No Anxiety/Panic, No Depression, complaining of suicidal ideation secondary to hearing voices telling her to hurt herself. Denies homicidal i deation Heme/Lymph: No Bruising, No Bleeding,No Lymphadenopathy Endocrine : No Polyuria, No Polydipsia, No Temperature Intolerance <Jennifer Albert MD - Last Filed: 04/21/22 21:44> [facility] Past Medical History Medical History: Medical History (Updated 04/21/22 @ 20:31 by Camille Rivers) Polysubstance abuse Psychosis PTSD (post-traumatic stress disorder) Schizophrenia <ANSELMO Yoo - Last Filed: 04/21/22 19:19> Social History Social History: Social History Household Members: Spouse and Children Housing: House Housing Other:: [facility] [address] Do you presently have visiting nurse or other home services: No Alcohol intake: current Alcohol intake frequency: holidays/special occasions only Patient Tobacco Use Status: Former Tobacco user Smoked in Last 30 Days: No e-Cigarette/Vaping Use: Former Use Second Hand Smoke Exposure: No Use of substances other than those prescribed or required for medical reasons: No Substance Use Type: Caffiene Advance Directives: No Advance Directives Information Provided: Yes Patient : No service: No Sexual orientation: Straight/Heterosexual <ANSELMO Yoo - Last Filed: 04/21/22 19:19> Physical Exam Vital Signs: Vital Signs: Last Vital Signs Temp 98.0 F 04/22/22 07:05 Pulse 88 04/22/22 07:05 Resp 16 04/22/22 07:05 BP 100/64 04/22/22 07:05 Pulse Ox 98 04/22/22 07:05 O2 Del Method 04/22/22 03:37 BMI result Body Mass Index 36.0 <ANSELMO Yoo - Last Filed: 04/21/22 19:19> Vital Signs: Last Vital Signs Temp 98.0 F 04/22/22 07:05 Pulse 88 04/22/22 07:05 Resp 16 04/22/22 07:05 BP 100/64 04/22/22 07:05 Pulse Ox 98 04/22/22 07:05 O2 Del Method 04/22/22 03:37 BMI result Body Mass Index 36.0 <Jennifer Albert MD - Last Filed: 04/21/22 21:44> Const: Other: Appearance: Alert. Oriented X3. No acute distress. Eyes: Pupils equal, round and reactive to light. ENT: Pharynx normal. Neck: Normal inspection. Neck supple. No lymph nodes noted. No crepitus CVS: Normal heart rate and rhythm. Pulses normal. Normal S1 and S2 Respiratory: No respiratory distress. Breath sounds normal. No Wheezing. No rales Abdomen: Soft and nontender. No rigidity. No distention. Skin: Skin warm and dry. Normal skin color. Normal skin turgor. Extremities: No lower extremity edema. No Lacerations. No Rash Neuro: Oriented X 3. No motor deficit. No sensory deficit. Moving all extremities. No slurred speech. CN 2 through 12 grossly intact Psych: calm, cooperative, flat affect, coherent <Jennifer Albert MD - Last Filed: 04/21/22 21:44> Course Course Course Narrative: RME - 37 yo female with history of schizoaffective disorder, PTSD who presents to the ER from home for evaluations of auditory & visual hallucinations telling her to hurt herself that started 2 weeks ago. Outpatient psychiatrist uptitrated some of her meds without effect as of yet. Last admission here was in October and was doing well for a while. Feels like she may need admission again. Plan: labs and CARE team evaluation once medically cleared <ANSELMO Yoo - Last Filed: 04/21/22 19:19> Medications Administered Generic Name Dose Route Start Last Admin Trade Name Freq PRN Reason Stop Dose Admin Benztropine Mesylate 2 mg 04/22/22 09:00 04/22/22 11:24 Benztropine Mesylate 1 Mg Tablet PO 2 mg BID LISANDRA Administration Clozapine 500 mg 04/21/22 23:00 04/22/22 00:02 Clozapine 100 Mg Tablet PO 500 mg BEDTIME LISANDRA Administration Melatonin 9 mg 04/21/22 23:00 04/22/22 00:02 Melatonin 3 Mg Tablet PO 9 mg BEDTIME LISANDRA Administration Trazodone HCl 100 mg 04/21/22 23:00 04/22/22 00:02 Trazodone Hcl 100 Mg Tablet PO 100 mg BEDTIME LISANDRA Administration <ANSELMO Yoo - Last Filed: 04/21/22 19:19> Medications Administered Generic Name Dose Route Start Last Admin Trade Name Freq PRN Reason Stop Dose Admin Benztropine Mesylate 2 mg 04/22/22 09:00 04/22/22 11:24 Benztropine Mesylate 1 Mg Tablet PO 2 mg BID LISANDRA Administration Clozapine 500 mg 04/21/22 23:00 04/22/22 00:02 Clozapine 100 Mg Tablet PO 500 mg BEDTIME LISANDRA Administration Melatonin 9 mg 04/21/22 23:00 04/22/22 00:02 Melatonin 3 Mg Tablet PO 9 mg BEDTIME LISANDRA Administration Trazodone HCl 100 mg 04/21/22 23:00 04/22/22 00:02 Trazodone Hcl 100 Mg Tablet PO 100 mg BEDTIME LISANDRA Administration -on the patient's labs are pending. -patient is calm, cooperative <Jennifer Albert MD - Last Filed: 04/21/22 21:44> Medical Decision Making Medical Decision Making MDM Narrative: -patient is medically cleared to be seen by the care team -care team consult pending -physician observation started at 21:40 <Jennifer Albert MD - Last Filed: 04/21/22 21:44> Differential Diagnosis Differential Diagnoses: The differential diagnosis associated with the presentation includes (Sc hizophrenia, schizoaffective disorder) <Jennifer Albert MD - Last Filed: 04/21/22 21:44> Admission/Observation Consideration of admission/observation: Escalation of care including admission/observation considered <Jennifer Albert MD - Last Filed: 04/21/22 21:44> Lab Data MDM Lab Attestation statement: I reviewed the patient's lab results. <Jennifer Albert MD - Last Filed: 04/21/22 21:44> Result Diagrams: 04/21/22 19:57 04/21/22 19:57 <ANSELMO Yoo - Last Filed: 04/21/22 19:19> Labs: Lab Results 04/21/22 04/21/22 04/21/22 Range/Units 19:51 19:51 19:51 WBC (4.8-10.8) X10*3/uL RBC (4.20-5.50) X10*6/uL Hgb (12.0-16.0) g/dl Hct (37.0-47.0) % MCV (80.0-98.0) fL MCH (27.0-33.0) pg MCHC (31.0-35.0) g/dl RDW (11.0-16.0) % Plt Count (160-400) X10*3/uL MPV (9.4-12.3) fL Immature Gran % (Auto) (0.0-0.4) % Neut % (Auto) (45-73) % Lymph % (Auto) (20-40) % [place] % (Auto) (2-11) % Eos % (Auto) (0-4) % Baso % (Auto) (0-2) % Lymph # (Auto) (1.2-4.9) X10*3/uL [place] # (Auto) (0.1-1.2) X10*3/uL Eos # (Auto) (0.0-0.4) X10*3/uL Baso # (Auto) (0.0-0.2) X10*3/uL Abs Immat Gran (auto) (0.00-0.03) X10*3/uL Absolute Neuts (auto) (2.0-8.3) x10*3/uL Absolute Nucleated RBC (0.0-0.012) X10*3/uL Nucleated RBC % (auto) (0.0-0.2) /100WBC Sodium (135-145) mmol/L Potassium (3.3-5.1) mmol/L Chloride (96-108) mmol/L Carbon Dioxide (22-29) mmol/L Anion Gap (12-20) BUN (9-16) mg/dL Creatinine (0.5-1.4) mg/dL Estim Creat Clear Calc Estimated GFR Random Glucose (60-115) mg/dL Calcium (8.4-10.2) mg/dL Magnesium (1.6-2.6) mg/dL Total Bilirubin (0.0-1.0) mg/dL Direct Bilirubin (0.0-0.5) mg/dL AST (5-31) U/L ALT (0-31) U/L Alkaline Phosphatase (39-117) U/L Total Protein (6.5-8.0) g/dL Albumin (3.5-5.0) g/dL Urine Color Yellow Urine Appearance Clear Urine pH 5.5 (5.0-9.0) Ur Specific [place] >= 1.030 H (1.005-1.025) Urine Protein 30 (1+) H (Neg-Trace) mg/dL Urine Glucose (UA) Negative (Negative) mg/dL Urine Ketones 15 (Negative) mg/dL Urine Blood Trace H (Negative) Urine Nitrite Negative (Negative) Ur Leukocyte Esterase Negative (Negative) Urine RBC 3-5 H (0-2) /HPF Urine WBC 0-5 (0-5) /HPF Ur Squamous Epith Cells 3-5 (0-2) /HPF Urine Bacteria None Seen (None Seen) Hyaline Casts 0-2 (0-2) /LPF Urine Test NEGATIVE (NEGATIVE) Urine Opiates Screen (Not Detect) Urine Fentanyl Screen (Not Detect) Ur Barbiturates Screen (Not Detect) Ur Phencyclidine Scrn (Not Detect) Ur Amphetamines Screen (Not Detect) U Benzodiazepines Scrn (Not Detect) Urine Cocaine Screen (Not Detect) U Marijuana (THC) Screen (Not Detect) Ethyl Alcohol mg/dL COVID-19 (SHIREEN) Negative (Negative) COVID-19 Clin Com See Note 04/21/22 04/21/22 04/21/22 Range/Units 19:56 19:57 19:57 WBC 6.7 (4.8-10.8) X10*3/uL RBC 4.67 (4.20-5.50) X10*6/uL Hgb 13.7 (12.0-16.0) g/dl Hct 41.1 (37.0-47.0) % MCV 88.0 (80.0-98.0) fL MCH 29.3 (27.0-33.0) pg MCHC 33.3 (31.0-35.0) g/dl RDW 14.1 (11.0-16.0) % Plt Count 284 (160-400) X10*3/uL MPV 11.1 (9.4-12.3) fL Immature Gran % (Auto) 0.3 (0.0-0.4) % Neut % (Auto) 61.5 (45-73) % Lymph % (Auto) 30.7 (20-40) % [place] % (Auto) 5.6 (2-11) % Eos % (Auto) 0.9 (0-4) % Baso % (Auto) 1.0 (0-2) % Lymph # (Auto) 2.1 (1.2-4.9) X10*3/uL [place] # (Auto) 0.4 (0.1-1.2) X10*3/uL Eos # (Auto) 0.1 (0.0-0.4) X10*3/uL Baso # (Auto) 0.1 (0.0-0.2) X10*3/uL Abs Immat Gran (auto) 0.02 (0.00-0.03) X10*3/uL Absolute Neuts (auto) 4.1 (2.0-8.3) x10*3/uL Absolute Nucleated RBC 0.000 (0.0-0.012) X10*3/uL Nucleated RBC % (auto) 0.0 (0.0-0.2) /100WBC Sodium 143 (135-145) mmol/L Potassium 4.0 (3.3-5.1) mmol/L Chloride 109 H (96-108) mmol/L Carbon Dioxide 21 L (22-29) mmol/L Anion Gap 17 (12-20) BUN 9 (9-16) mg/dL Creatinine 0.80 (0.5-1.4) mg/dL Estim Creat Clear Calc 108.8 Estimated GFR > 60 Random Glucose 145 H (60-115) mg/dL Calcium 10.6 H (8.4-10.2) mg/dL Magnesium 2.0 (1.6-2.6) mg/dL Total Bilirubin 0.5 (0.0-1.0) mg/dL Direct Bilirubin < 0.2 (0.0-0.5) mg/dL AST 14 (5-31) U/L ALT 23 (0-31) U/L Alkaline Phosphatase 82 (39-117) U/L Total Protein 7.5 (6.5-8.0) g/dL Albumin 5.0 (3.5-5.0) g/dL Urine Color Urine Appearance Urine pH (5.0-9.0) Ur Specific [place] (1.005-1.025) Urine Protein (Neg-Trace) mg/dL Urine Glucose (UA) (Negative) mg/dL Urine Ketones (Negative) mg/dL Urine Blood (Negative) Urine Nitrite (Negative) Ur Leukocyte Esterase (Negative) Urine RBC (0-2) /HPF Urine WBC (0-5) /HPF Ur Squamous Epith Cells (0-2) /HPF Urine Bacteria (None Seen) Hyaline Casts (0-2) /LPF Urine Test (NEGATIVE) Urine Opiates Screen Not Detected (Not Detect) Urine Fentanyl Screen Not Detected (Not Detect) Ur Barbiturates Screen Not Detected (Not Detect) Ur Phencyclidine Scrn Not Detected (Not Detect) Ur Amphetamines Screen Not Detected (Not Detect) U Benzodiazepines Scrn Not Detected (Not Detect) Urine Cocaine Screen Not Detected (Not Detect) U Marijuana (THC) Screen Not Detected (Not Detect) Ethyl Alcohol < 10 mg/dL COVID-19 (SHIREEN) (Negative) COVID-19 Clin Com <ANSELMO Yoo - Last Filed: 04/21/22 19:19> Lab Results 04/21/22 04/21/2223 Range/Units 19:51 19:51 19:51 WBC (4.8-10.8) X10*3/uL RBC (4.20-5.50) X10*6/uL Hgb (12.0-16.0) g/dl Hct (37.0-47.0) % MCV (80.0-98.0) fL MCH (27.0-33.0) pg MCHC (31.0-35.0) g/dl RDW (11.0-16.0) % Plt Count (160-400) X10*3/uL MPV (9.4-12.3) fL Immature Gran % (Auto) (0.0-0.4) % Neut % (Auto) (45-73) % Lymph % (Auto) (20-40) % [place] % (Auto) (2-11) % Eos % (Auto) (0-4) % Baso % (Auto) (0-2) % Lymph # (Auto) (1.2-4.9) X10*3/uL [place] # (Auto) (0.1-1.2) X10*3/uL Eos # (Auto) (0.0-0.4) X10*3/uL Baso # (Auto) (0.0-0.2) X10*3/uL Abs Immat Gran (auto) (0.00-0.03) X10*3/uL Absolute Neuts (auto) (2.0-8.3) x10*3/uL Absolute Nucleated RBC (0.0-0.012) X10*3/uL Nucleated RBC % (auto) (0.0-0.2) /100WBC Sodium (135-145) mmol/L Potassium (3.3-5.1) mmol/L Chloride (96-108) mmol/L Carbon Dioxide (22-29) mmol/L Anion Gap (12-20) BUN (9-16) mg/dL Creatinine (0.5-1.4) mg/dL Estim Creat Clear Calc Estimated GFR Random Glucose (60-115) mg/dL Calcium (8.4-10.2) mg/dL Magnesium (1.6-2.6) mg/dL Total Bilirubin (0.0-1.0) mg/dL Direct Bilirubin (0.0-0.5) mg/dL AST (5-31) U/L ALT (0-31) U/L Alkaline Phosphatase (39-117) U/L Total Protein (6.5-8.0) g/dL Albumin (3.5-5.0) g/dL Urine Color Yellow Urine Appearance Clear Urine pH 5.5 (5.0-9.0) Ur Specific [place] >= 1.030 H (1.005-1.025) Urine Protein 30 (1+) H (Neg-Trace) mg/dL Urine Glucose (UA) Negative (Negative) mg/dL Urine Ketones 15 (Negative) mg/dL Urine Blood Trace H (Negative) Urine Nitrite Negative (Negative) Ur Leukocyte Esterase Negative (Negative) Urine RBC 3-5 H (0-2) /HPF Urine WBC 0-5 (0-5) /HPF Ur Squamous Epith Cells 3-5 (0-2) /HPF Urine Bacteria None Seen (None Seen) Hyaline Casts 0-2 (0-2) /LPF Urine Test NEGATIVE (NEGATIVE) Urine Opiates Screen (Not Detect) Urine Fentanyl Screen (Not Detect) Ur Barbiturates Screen (Not Detect) Ur Phencyclidine Scrn (Not Detect) Ur Amphetamines Screen (Not Detect) U Benzodiazepines Scrn (Not Detect) Urine Cocaine Screen (Not Detect) U Marijuana (THC) Screen (Not Detect) Ethyl Alcohol mg/dL COVID-19 (SHIREEN) Negative (Negative) COVID-19 Clin Com See Note 04/21/22 04/21/22 04/21/22 Range/Units 19:56 19:57 19:57 WBC 6.7 (4.8-10.8) X10*3/uL RBC 4.67 (4.20-5.50) X10*6/uL Hgb 13.7 (12.0-16.0) g/dl Hct 41.1 (37.0-47.0) % MCV 88.0 (80.0-98.0) fL MCH 29.3 (27.0-33.0) pg MCHC 33.3 (31.0-35.0) g/dl RDW 14.1 (11.0-16.0) % Plt Count 284 (160-400) X10*3/uL MPV 11.1 (9.4-12.3) fL Immature Gran % (Auto) 0.3 (0.0-0.4) % Neut % (Auto) 61.5 (45-73) % Lymph % (Auto) 30.7 (20-40) % [place] % (Auto) 5.6 (2-11) % Eos % (Auto) 0.9 (0-4) % Baso % (Auto) 1.0 (0-2) % Lymph # (Auto) 2.1 (1.2-4.9) X10*3/uL [place] # (Auto) 0.4 (0.1-1.2) X10*3/uL Eos # (Auto) 0.1 (0.0-0.4) X10*3/uL Baso # (Auto) 0.1 (0.0-0.2) X10*3/uL Abs Immat Gran (auto) 0.02 (0.00-0.03) X10*3/uL Absolute Neuts (auto) 4.1 (2.0-8.3) x10*3/uL Absolute Nucleated RBC 0.000 (0.0-0.012) X10*3/uL Nucleated RBC % (auto) 0.0 (0.0-0.2) /100WBC Sodium 143 (135-145) mmol/L Potassium 4.0 (3.3-5.1) mmol/L Chloride 109 H (96-108) mmol/L Carbon Dioxide 21 L (22-29) mmol/L Anion Gap 17 (12-20) BUN 9 (9-16) mg/dL Creatinine 0.80 (0.5-1.4) mg/dL Estim Creat Clear Calc 108.8 Estimated GFR > 60 Random Glucose 145 H (60-115) mg/dL Calcium 10.6 H (8.4-10.2) mg/dL Magnesium 2.0 (1.6-2.6) mg/dL Total Bilirubin 0.5 (0.0-1.0) mg/dL Direct Bilirubin < 0.2 (0.0-0.5) mg/dL AST 14 (5-31) U/L ALT 23 (0-31) U/L Alkaline Phosphatase 82 (39-117) U/L Total Protein 7.5 (6.5-8.0) g/dL Albumin 5.0 (3.5-5.0) g/dL Urine Color Urine Appearance Urine pH (5.0-9.0) Ur Specific [place] (1.005-1.025) Urine Protein (Neg-Trace) mg/dL Urine Glucose (UA) (Negative) mg/dL Urine Ketones (Negative) mg/dL Urine Blood (Negative) Urine Nitrite (Negative) Ur Leukocyte Esterase (Negative) Urine RBC (0-2) /HPF Urine WBC (0-5) /HPF Ur Squamous Epith Cells (0-2) /HPF Urine Bacteria (None Seen) Hyaline Casts (0-2) /LPF Urine Test (NEGATIVE) Urine Opiates Screen Not Detected (Not Detect) Urine Fentanyl Screen Not Detected (Not Detect) Ur Barbiturates Screen Not Detected (Not Detect) Ur Phencyclidine Scrn Not Detected (Not Detect) Ur Amphetamines Screen Not Detected (Not Detect) U Benzodiazepines Scrn Not Detected (Not Detect) Urine Cocaine Screen Not Detected (Not Detect) U Marijuana (THC) Screen Not Detected (Not Detect) Ethyl Alcohol < 10 mg/dL COVID-19 (SHIREEN) (Negative) COVID-19 Clin Com <Jennifer Albert MD - Last Filed: 04/21/22 21:44> Discharge Plan Discharge Clinical Impression: Auditory hallucination <ANSELMO Yoo - Last Filed: 04/21/22 19:19> Patient Disposition: Still a Patient <ANSELMO Yoo - Last Filed: 04/21/22 19:19> Prescriptions: No Action melatonin 3 mg Tablet 9 mg PO BEDTIME benztropine 2 mg tablet 2 mg PO BID 30 Days Qty: 60 0RF lamotrigine 25 mg Tablet See Rx Instructions .ROUTE .COMPLEX Qty: 52 0RF Rx Instructions: take 1 tab at bedtime for 8 days; then take 1 tab BID risperidone 1 mg Tablet 1 mg PO Q4H PRN (Reason: auditory hallucinations) 30 Days Qty: 30 0RF trazodone 100 mg tablet 100 mg PO BEDTIME 30 Days Qty: 30 0RF lorazepam 1 mg tablet 1 mg PO BID PRN (Reason: Anxiety) 30 Days Qty: 60 0RF clozapine 100 mg tablet 500 mg PO BEDTIME <ANSELMO Yoo - Last Filed: 04/21/22 19:19> Interventions: [place]-Suicide Risk Severity Scale Last Done: 04/21/22 19:46 <ANSELMO Yoo - Last Filed: 04/21/22 19:19>
[2022-04-21 19:18] VITALS: BP 150/96; PULSE 121; RESP 16; TEMP 36.8; O2SAT 98; BMI 36.0
[2022-04-21 19:42] VITALS: BP 129/94; PULSE 116; RESP 16; TEMP 37; O2SAT 97
--- NOTE | 2022-04-21 19:57 | PC.NURSE ---
Addendum entered by Camille Rivers 04/21/22 20:30: pt states that SI plan involves either taking all of my pills or hanging myself in the basement Original Note: pt reports feelings of SI over the past couple of weeks. Has a history of self harm as a child but before recent SI has not had recent self harm or thoughts of self harm. Current SI includes a plan, yet details have not been completely worked out. Urine sent to lab.
[2022-04-21 20:04] LABS: MANUAL DIFF FLAG NO
[2022-04-21 20:07] LABS: Basophils Absolute Auto 0.1 X10*3/uL (0.0-0.2); Eosinophils Absolute Auto 0.1 X10*3/uL (0.0-0.4); Eosinophils Percent Auto 0.9 % (0-4); Hematocrit 41.1 % (37.0-47.0); Hemoglobin 13.7 g/dl (12.0-16.0); Imm Gran Abs Auto 0.02 X10*3/uL (0.00-0.03); Imm Gran Pct Auto 0.3 % (0.0-0.4); Lymphocytes Absolute Auto 2.1 X10*3/uL (1.2-4.9); Lymphocytes Percent Auto 30.7 % (20-40); Mean Corpuscular HGB Conc 33.3 g/dl (31.0-35.0); Mean Corpuscular Hemoglobin 29.3 pg (27.0-33.0); Mean Platelet Volume 11.1 fL (9.4-12.3); Monocytes Absolute Auto 0.4 X10*3/uL (0.1-1.2); Monocytes Percent Auto 5.6 % (2-11); Neutrophils Absolute Auto 4.1 x10*3/uL (2.0-8.3); Neutrophils Percent Auto 61.5 % (45-73); Platelet Count 284 X10*3/uL (160-400); Red Blood Count 4.67 X10*6/uL (4.20-5.50); Red Cell Distribution Width 14.1 % (11.0-16.0); White Blood Count 6.7 X10*3/uL (4.8-10.8)
[2022-04-21 20:09] LABS: Appearance Urine Clear; Color Urine Yellow; Glucose Urine UA Negative (Negative); Leukocyte Esterase Urine Negative (Negative); Nitrite Urine Negative (Negative); PH 5.5 (5.0-9.0); Specific Gravity - Urine >= 1.030 (1.005-1.025); UMIC TRIGGER UACC YES; Urine Blood Trace (Negative); Urine Ketones 15 mg/dL (Negative); Urine Protein 30 (1+) mg/dL (Neg-Trace)
[2022-04-21 20:10] LABS: UPreg QC Valid YES; Urine Pregnancy NEGATIVE (NEGATIVE)
[2022-04-21 20:14] LABS: Bacteria Urine None Seen (None Seen); Hyaline Casts Urine 0-2 /LPF (0-2); WBC Urine 0-5 /HPF (0-5)
[2022-04-21 20:18] LABS: COVID-19 Test Negative (Negative); IDNOW Serial# 16C4AD1C
[2022-04-21 20:19] LABS: Amphetamine Screen Urine Not Detected (Not Detect); Barbiturates, Urine Not Detected (Not Detect); Benzodiazepines Screen Urine Not Detected (Not Detect); Cannabinoid Screen Urine Not Detected (Not Detect); Cocaine Screen Urine Not Detected (Not Detect); Fentanyl, urine Not Detected (Not Detect); Opiate Screen Urine Not Detected (Not Detect); Phencyclidine Screen Urine Not Detected (Not Detect)
[2022-04-21 20:26] LABS: Alanine Aminotransferase 23 U/L (0-31); Alkaline Phosphatase 82 U/L (39-117); Anion Gap 17 (12-20); Aspartate Amino Transferase 14 U/L (5-31); Bilirubin Direct < 0.2 mg/dL (0.0-0.5); Bilirubin Total 0.5 mg/dL (0.0-1.0); Blood Urea Nitrogen 9 mg/dL (9-16); Calcium 10.6 mg/dL (8.4-10.2); Carbon Dioxide 21 mmol/L (22-29); Chloride 109 mmol/L (96-108); Creatinine Clr Calc Pharmacy 108.8; Estimated Glomerular Filt Rate > 60; Ethanol < 10 mg/dL; Glucose Random 145 mg/dL (60-115); Sodium 143 mmol/L (135-145); Total Protein 7.5 g/dL (6.5-8.0)
--- NOTE | 2022-04-21 20:29 | PC.NURSE ---
pt indicates that she is hearing voices and that they tell her that she is worthless .
--- NOTE | 2022-04-21 22:42 | PHA.MEDREC ---
Pharmacy Consult ? Medication Reconciliation Pharmacy has completed the medication reconciliation. SPOKE WITH PT
[2022-04-21 23:50] VITALS: BP 131/95; PULSE 106; RESP 16; TEMP 36.6; O2SAT 97
--- NOTE | 2022-04-22 | ECG_ITS ---
Test Reason : CHECK QT INTERVAL Blood Pressure : / mmHG Vent. Rate : 099 BPM Atrial Rate : 099 BPM P-R Int : 132 ms QRS Dur : 088 ms QT Int : 346 ms P-R-T Axes : 043 022 -51 degrees QTc Int : 444 ms Normal sinus rhythm T wave abnormality, consider lateral ischemia Abnormal ECG When compared with ECG of 24-OCT-2021 21:04, No significant change was found Referred By: Niyah Stephenson Electronically Signed By:MARSHA DAVIS
[2022-04-22] MEDS: traZODone HCL 100 MG TABLET PO ×2 (00:02→21:23)
[2022-04-22] MEDS: Melatonin 3 MG TABLET 9 MG PO ×2 (00:02→22:18)
[2022-04-22] MEDS: cloZAPine 100 MG TABLET 500 MG PO ×2 (00:02→21:22)
[2022-04-22 03:37] VITALS: BP 132/93; PULSE 107; RESP 16; TEMP 36.5; O2SAT 97
[2022-04-22 06:14] VITALS: RESP 185
[2022-04-22 07:05] VITALS: BP 100/64; PULSE 88; RESP 16; TEMP 36.7; O2SAT 98
--- NOTE | 2022-04-22 07:49 | PC.NURSE ---
Pt resting, respirations even and unlabored. Patient observer at bedside. Awaiting care team evaluation, medically cleared.
[2022-04-22] MEDS: Benztropine Mesylate 1 MG TABLET 2 MG PO ×2 (11:24→21:22)
--- NOTE | 2022-04-22 11:30 | PC.NURSE ---
Continues to rest in bed, sleeping on and off. Patient observer at bedside.
--- NOTE | 2022-04-22 11:44 | PC.NURSE ---
Per care team, pt is inpatient bedsearch
--- NOTE | 2022-04-22 14:43 | P.PNPSI_ITS ---
Subjective Subjective Date of Service: 04/22/22 Reason For Visit: SI Diagnostics Vital Signs (24Hr): Vital Signs - 24 hr 04/21/22 19:18 04/21/22 19:42 04/21/22 23:50 Temperature 98.3 F 98.6 F 97.8 F Pulse Rate 121 H 116 H 106 H Respiratory Rate 16 16 16 Blood Pressure 150/96 H 129/94 H 131/95 H Pulse Oximetry 98 97 97 Oxygen Delivery Method Room Air Room Air Room Air 04/22/22 03:37 04/22/22 06:14 04/22/22 07:05 Temperature 97.7 F 98.0 F Pulse Rate 107 H 88 Respiratory Rate 16 185 H 16 Blood Pressure 132/93 H 100/64 Pulse Oximetry 97 98 Oxygen Delivery Method Room Air BMI result Body Mass Index 36.0 Labs 04/21/22 19:57 04/21/22 19:57 Labs: Laboratory Results - last 48 hr 04/21/22 04/21/22 04/21/22 19:51 19:51 19:51 WBC RBC Hgb Hct MCV MCH MCHC RDW Plt Count MPV Immature Gran % (Auto) Neut % (Auto) Lymph % (Auto) [place] % (Auto) Eos % (Auto) Baso % (Auto) Lymph # (Auto) [place] # (Auto) Eos # (Auto) Baso # (Auto) Abs Immat Gran (auto) Absolute Neuts (auto) Absolute Nucleated RBC Nucleated RBC % (auto) Sodium Potassium Chloride Carbon Dioxide Anion Gap BUN Creatinine Estim Creat Clear Calc Estimated GFR Random Glucose Calcium Magnesium Total Bilirubin Direct Bilirubin AST ALT Alkaline Phosphatase Total Protein Albumin Urine Color Yellow Urine Appearance Clear Urine pH 5.5 Ur Specific [place] >= 1.030 H Urine Protein 30 (1+) H Urine Glucose (UA) Negative Urine Ketones 15 Urine Blood Trace H Urine Nitrite Negative Ur Leukocyte Esterase Negative Urine RBC 3-5 H Urine WBC 0-5 Ur Squamous Epith Cells 3-5 Urine Bacteria None Seen Hyaline Casts 0-2 Urine Test NEGATIVE Urine Opiates Screen Urine Fentanyl Screen Ur Barbiturates Screen Ur Phencyclidine Scrn Ur Amphetamines Screen U Benzodiazepines Scrn Urine Cocaine Screen U Marijuana (THC) Screen Ethyl Alcohol COVID-19 (SHIREEN) Negative COVID-19 Clin Com See Note 04/21/22 04/21/22 04/21/22 19:56 19:57 19:57 WBC 6.7 RBC 4.67 Hgb 13.7 Hct 41.1 MCV 88.0 MCH 29.3 MCHC 33.3 RDW 14.1 Plt Count 284 MPV 11.1 Immature Gran % (Auto) 0.3 Neut % (Auto) 61.5 Lymph % (Auto) 30.7 [place] % (Auto) 5.6 Eos % (Auto) 0.9 Baso % (Auto) 1.0 Lymph # (Auto) 2.1 [place] # (Auto) 0.4 Eos # (Auto) 0.1 Baso # (Auto) 0.1 Abs Immat Gran (auto) 0.02 Absolute Neuts (auto) 4.1 Absolute Nucleated RBC 0.000 Nucleated RBC % (auto) 0.0 Sodium 143 Potassium 4.0 Chloride 109 H Carbon Dioxide 21 L Anion Gap 17 BUN 9 Creatinine 0.80 Estim Creat Clear Calc 108.8 Estimated GFR > 60 Random Glucose 145 H Calcium 10.6 H Magnesium 2.0 Total Bilirubin 0.5 Direct Bilirubin < 0.2 AST 14 ALT 23 Alkaline Phosphatase 82 Total Protein 7.5 Albumin 5.0 Urine Color Urine Appearance Urine pH Ur Specific [place] Urine Protein Urine Glucose (UA) Urine Ketones Urine Blood Urine Nitrite Ur Leukocyte Esterase Urine RBC Urine WBC Ur Squamous Epith Cells Urine Bacteria Hyaline Casts Urine Test Urine Opiates Screen Not Detected Urine Fentanyl Screen Not Detected Ur Barbiturates Screen Not Detected Ur Phencyclidine Scrn Not Detected Ur Amphetamines Screen Not Detected U Benzodiazepines Scrn Not Detected Urine Cocaine Screen Not Detected U Marijuana (THC) Screen Not Detected Ethyl Alcohol < 10 COVID-19 ([facility]) COVID-19 [facility] Medications Medications Current Medications Benztropine Mesylate (Benztropine Mesylate 1 Mg Tablet) 2 mg PO BID [facility] Last Admin: 04/22/22 11:24 Dose: 2 mg Clozapine (Clozapine 100 Mg Tablet) 500 mg PO BEDTIME [facility] Last Admin: 04/22/22 00:02 Dose: 500 mg Lamotrigine (Lamotrigine 25 Mg Tablet) 0 mg PO .COMPLEX [facility] Lorazepam (Lorazepam 1 Mg Tablet) 1 mg PO BID PRN PRN Reason: Anxiety Melatonin (Melatonin 3 Mg Tablet) 9 mg PO BEDTIME [facility] Last Admin: 04/22/22 00:02 Dose: 9 mg Pharmacy Consult (Consult Rx Perform Med Rec) 1 each MISCELLANE ONCE PRN PRN Reason: Consult order Risperidone (Risperidone 1 Mg Tablet) 1 mg PO Q4H PRN PRN Reason: auditory hallucinations Trazodone HCl (Trazodone Hcl 100 Mg Tablet) 100 mg PO BEDTIME [facility] Last Admin: 04/22/22 00:02 Dose: 100 mg Allergies Allergies Allergy/AdvReac Type Severity Reaction Status Date / Time haloperidol [From HALDOL] AdvReac Unknown EYES Verified 10/07/21 16:11 ROLLED BACK Assessment & Plan Time Spent With Patient Time: Total time managing care of this patient today ____ minutes.
[2022-04-22 15:35] VITALS: RESP 16
--- NOTE | 2022-04-22 16:01 | MHC.CARE ---
Pt seen by CARE team and psych consult done, Pt to be discharged to [facility] per his requests.
--- NOTE | 2022-04-22 16:05 | MHC.CARE ---
Pt seen by CARE team and meets criteria for inpatient level of care, currently a bedsearch.
[2022-04-22 19:23] VITALS: BP 132/82; PULSE 100; TEMP 36.2; O2SAT 98
[2022-04-22] MEDS: Magnesium Hydrox/Alum Hydrox 30 ML ORAL.SUSP PO (20:19)
[2022-04-22] MEDS: risperiDONE 1 MG TABLET PO (20:19)
[2022-04-22] MEDS: lamoTRIgine 25 MG TABLET PO (21:22)
--- NOTE | 2022-04-23 00:06 | PC.ADMIT ---
Patient is a 37 year old , , Maltese speaking female who arrived on M5 at 1945 as a CV admission. Patient was medically cleared in the [facility] after she self presented with command AH and VH which have intensified over the last two weeks. She was seen by the CARE team. The AH are command in nature and the male voices tell her to harm herself or jump off a bridge because she is not a good person. Patient has a psychiatrist who recently titrated some of her medications. However the titration has not been successful and the patient reported she is not only having AH and VH but is really paranoid and has SI. The patient has been on M5 in the past, with her most recent admission here, 10/09/21. Patient was relatively calm during the admission process and was able to sign all of the legals and answer assessment questions. Patient was able to sit in the kitchen and watch tv, but did not interact with peers. No current SI but patient did report AH and was given a Risperdal as a prn with positive effect. Treatment plan and safety tool need to be signed. Patient med compliant.
[2022-04-23 08:55] LABS: Estimated Average Glucose 128 mg/dL; Hemoglobin A1C 148.6205 umol/L; Hemoglobin A1c % 6.1 %
[2022-04-23 09:08] LABS: Alanine Aminotransferase 23 U/L (0-31); Albumin Level 4.3 g/dL (3.5-5.0); Alkaline Phosphatase 74 U/L (39-117); Anion Gap 14 (12-20); Aspartate Amino Transferase 15 U/L (5-31); Bilirubin Total 0.5 mg/dL (0.0-1.0); Blood Urea Nitrogen 8 mg/dL (9-16); Calcium 9.9 mg/dL (8.4-10.2); Carbon Dioxide 24 mmol/L (22-29); Chloride 109 mmol/L (96-108); Cholesterol 276 mg/dL; Creatinine Clr Calc Pharmacy 106.2; Estimated Glomerular Filt Rate > 60; Glucose Fasting 117 mg/dL (60-99); HDL Cholesterol 37 mg/dL; LDL Cholesterol Calculated 164 mg/dl; Potassium 4.4 mmol/L (3.3-5.1); Sodium 143 mmol/L (135-145); Total Protein 6.4 g/dL (6.5-8.0); Triglycerides 376 mg/dL
[2022-04-23 09:26] LABS: Thyroid Stimulating Hormone 1.87 uIU/mL (0.32-4.0)
[2022-04-23] MEDS: lamoTRIgine 25 MG TABLET PO ×2 (09:27→21:48)
[2022-04-23] MEDS: Benztropine Mesylate 1 MG TABLET 2 MG PO ×2 (09:27→21:48)
[2022-04-23 09:37] VITALS: BP 119/74; PULSE 91; RESP 16; TEMP 36.2; O2SAT 94
[2022-04-23] MEDS: cloNIDine HCL 0.1 MG TABLET PO ×2 (12:30→21:48)
[2022-04-23] MEDS: Clindamycin HCL 300 MG CAPSULE PO ×2 (12:30→21:48)
[2022-04-23 12:33] VITALS: BP 120/88; PULSE 100
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
[2022-04-23 18:00] VITALS: BP 127/84; PULSE 97; TEMP 36.7; O2SAT 96
[2022-04-23] MEDS: traZODone HCL 100 MG TABLET PO (21:48)
[2022-04-23] MEDS: Acetaminophen 325 MG TABLET 650 MG PO (21:48)
[2022-04-23] MEDS: cloZAPine 100 MG TABLET 500 MG PO (21:58)
[2022-04-23] MEDS: Melatonin 3 MG TABLET 9 MG PO (22:32)
[2022-04-24] MEDS: cloNIDine HCL 0.1 MG TABLET PO (09:11)
[2022-04-24] MEDS: Benztropine Mesylate 1 MG TABLET 2 MG PO ×2 (09:11→22:03)
[2022-04-24] MEDS: Clindamycin HCL 300 MG CAPSULE PO ×2 (09:11→22:03)
[2022-04-24] MEDS: lamoTRIgine 25 MG TABLET PO ×2 (09:11→22:03)
[2022-04-24 09:13] VITALS: BP 115/77; PULSE 76; RESP 16; TEMP 36.2; O2SAT 96
[2022-04-24 16:10] VITALS: BP 120/71; PULSE 84; TEMP 36.4
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
[2022-04-24] MEDS: hydrOXYzine HCL 25 MG TABLET PO (19:05)
[2022-04-24 19:45] VITALS: BP 118/71; PULSE 101; TEMP 36.1
[2022-04-24] MEDS: traZODone HCL 100 MG TABLET PO (22:04)
[2022-04-24] MEDS: cloZAPine 100 MG TABLET 500 MG PO (22:04)
[2022-04-24] MEDS: Melatonin 3 MG TABLET 9 MG PO (23:02)
[2022-04-25 06:00] VITALS: BP 95/50; PULSE 81; RESP 14; TEMP 35.9; O2SAT 94
[2022-04-25] MEDS: lamoTRIgine 25 MG TABLET PO ×2 (09:05→19:14)
[2022-04-25] MEDS: Clindamycin HCL 300 MG CAPSULE PO ×2 (09:05→19:12)
[2022-04-25] MEDS: Benztropine Mesylate 1 MG TABLET 2 MG PO ×2 (09:05→19:14)
[2022-04-25 09:07] VITALS: BP 126/75; PULSE 89
--- NOTE | 2022-04-25 13:42 | HO.PSYCHPN ---
Subjective Subjective Date of Service: 04/25/22 Reason For Visit: psychosis Subjective Notes: Conditional Voluntary Interim History: Pt reports she continues to have intrusive thoughts, hearing voices telling her derogatory statements. Pt reports passive SI. She reports stress related to situation with mother in law. She reports sleeping and eating well. Per nursing, pt has been visible on the unit and going to delmis Medication Compliance: Yes Review of Systems Constitutional: Reports no additional constitutional complaints Eyes: Reports no additional eye complaints Reports system reviewed and no additional complaints, except as documented Cardiovascular: Reports no additional cardiovascular complaints Respiratory: Reports no additional respiratory complaints Gastrointestinal: Reports no additional gastrointestinal complaints Musculoskeletal: Reports no additional musculoskeletal complaints Skin/Breast: Reports system reviewed and no additional complaints, except as docu Reports system reviewed and no additional complaints, except as documented Psychiatric: Reports anxiety, Reports depression, Reports difficulty concentrating, Reports auditory hallucinations, Reports hopelessness, Reports irritability, Reports anhedonia, Reports visual hallucinations, Reports hallucinations and Reports suicidal ideation Endocrine: Reports no additional endocrine complaints Hematologic/Lymphatic: Reports no additional hematologic/lymphatic complaints Allergic/Immunologic: Reports no additional allergic/immunologic complaints Mental Status Exam Mental Status Exam Narrative: Pt is alert and oriented; behavior is cooperative, cautious; patient is not in distress; dressed in hospital attire adequately groomed; mood is described as anxious but better and affect congruent; eye contact appropriate; Speech is normal a little quiet; normal rate and prosody and not pressured; some psychomotor retardation present; thought process is goal directed; Thought content is on dealing with AH; otherwise pertinent to relevant topics; does not want to harm self but thoughts of SI; no HI; positive for AH. Patients insight and judgment are fair x 2. Patient Appearance: Appropriate Patient Orientation: Person, Place, Time and Situation Level of Consciousness: Alert Patient Behavior: Talkative, Cooperative and Good Eye Contact Mood Description: Depressed Affect Description: Flat Patient Cognition Impaired: No Ability to Follow Directions: Good Speech Pattern: Spontaneous Speech Memory Description: Intact Diagnostics Vital Signs (24Hr): Vital Signs - 24 hr 04/24/22 16:10 04/24/22 19:45 04/25/22 06:00 Temperature 97.5 F 97.0 F 96.7 F L Pulse Rate 84 101 H 81 Respiratory Rate 14 Blood Pressure 120/71 118/71 95/50 L Pulse Oximetry 94 Oxygen Delivery Method Room Air 04/25/22 09:07 Temperature Pulse Rate 89 Respiratory Rate Blood Pressure 126/75 Pulse Oximetry Oxygen Delivery Method BMI result Body Mass Index 36.0 Labs 04/21/22 19:57 04/23/22 08:11 Medications Medications Current Medications Acetaminophen (Acetaminophen 325 Mg Tablet) 650 mg PO Q6H PRN PRN Reason: Headache/Pain Mild Scale (1-3) Last Admin: 04/23/22 21:48 Dose: 650 mg Al Hydroxide/Mg Hydroxide (Magnesium Hydrox/Alum Hydrox 30 Ml Oral.Susp) 30 ml PO Q6H PRN PRN Reason: Heartburn/Nausea Last Admin: 04/22/22 20:19 Dose: 30 ml Benztropine Mesylate (Benztropine Mesylate 1 Mg Tablet) 2 mg PO BID [facility] Last Admin: 04/25/22 09:05 Dose: 2 mg Clindamycin HCl (Clindamycin Hcl 300 Mg Capsule) 300 mg PO BID [facility] Stop: 04/30/22 21:00 Last Admin: 04/25/22 09:05 Dose: 300 mg Clonidine HCl (Clonidine Hcl 0.1 Mg Tablet) 0.1 mg PO DAILY@1900 [facility]; Protocol Last Admin: 04/24/22 19:50 Dose: Not Given Clonidine HCl (Clonidine Hcl 0.1 Mg Tablet) 0.1 mg PO DAILY PRN; Protocol PRN Reason: anxiety Clozapine (Clozapine 100 Mg Tablet) 500 mg PO BEDTIME [facility] Last Admin: 04/24/22 22:04 Dose: 500 mg Hydroxyzine HCl (Hydroxyzine Hcl 25 Mg Tablet) 25 mg PO Q6H PRN PRN Reason: Anxiety Last Admin: 04/24/22 19:05 Dose: 25 mg Lamotrigine (Lamotrigine 25 Mg Tablet) 25 mg PO BID [facility] Last Admin: 04/25/22 09:05 Dose: 25 mg Lorazepam (Lorazepam 1 Mg Tablet) 1 mg PO BID PRN PRN Reason: Anxiety Magnesium Hydroxide (Milk Of Magnesia 30 Ml Oral.Susp) 30 ml PO DAILY PRN PRN Reason: Constipation Melatonin (Melatonin 3 Mg Tablet) 9 mg PO BEDTIME [facility] Last Admin: 04/24/22 23:02 Dose: 9 mg Pharmacy Consult (Consult Rx Perform Med Rec) 1 each MISCELLANE ONCE PRN PRN Reason: Consult order Risperidone (Risperidone 1 Mg Tablet) 1 mg PO Q4H PRN PRN Reason: auditory hallucinations Last Admin: 04/22/22 20:19 Dose: 1 mg Trazodone HCl (Trazodone Hcl 100 Mg Tablet) 100 mg PO BEDTIME [facility] Last Admin: 04/24/22 22:04 Dose: 100 mg Trazodone HCl (Trazodone Hcl 50 Mg Tablet) 50 mg PO BEDTIME PRN PRN Reason: Insomnia Allergies Allergies Allergy/AdvReac Type Severity Reaction Status Date / Time haloperidol [From HALDOL] AdvReac Unknown EYES Verified 10/07/21 16:11 ROLLED BACK Assessment & Plan Assessment & Plan (1) Schizoaffective disorder, depressive type: Status: Acute Code(s): F25.1 - Schizoaffective disorder, depressive type (2) PTSD (post-traumatic stress disorder): Status: Acute Code(s): F43.10 - Post-traumatic stress disorder, unspecified Plan 37 yo female, known to our service, with reports of CAH to kill herself. Recent medication increases not effective, prn Risperdal continues with effect however shadow people are telling her this is a conspiracy and meds will make her feel out of her body. Discussed med effects-she reports they calm voices and numb her at times, offering relief. Also reports significant anxiety. Plan: Clindamycin 300 mg bid- 04/23-04/30 to address bacterial vaginosis Clonidine 0.1 mg bid to address anxiety Continue other regime meds as they were just increased Process concerns about mother in law. 04/24/22: Change Clonidine to 0.1 mg HS and 0.1 mg daily prn anxiety. 04/25/22 continue tx. Reason for contiued inpatient stay Substantial Risk for: harm to self Time Spent With Patient Time: Total time managing care of this patient today ____ minutes.
[2022-04-25 18:00] VITALS: BP 121/74; PULSE 75; RESP 16; TEMP 36.4; O2SAT 98
[2022-04-25] MEDS: cloNIDine HCL 0.1 MG TABLET PO ×2 (19:04→19:13)
[2022-04-25] MEDS: cloZAPine 100 MG TABLET 500 MG PO (19:13)
[2022-04-25] MEDS: traZODone HCL 100 MG TABLET PO (19:13)
[2022-04-25] MEDS: Melatonin 3 MG TABLET 9 MG PO (19:14)
[2022-04-26] MEDS: Benztropine Mesylate 1 MG TABLET 2 MG PO ×2 (08:45→20:28)
[2022-04-26] MEDS: lamoTRIgine 25 MG TABLET PO ×2 (08:45→20:29)
[2022-04-26] MEDS: Clindamycin HCL 300 MG CAPSULE PO ×2 (08:45→20:27)
[2022-04-26 08:53] VITALS: BP 112/68; PULSE 88; RESP 18; TEMP 36.1; O2SAT 98
[2022-04-26] MEDS: risperiDONE 1 MG TABLET PO (12:20)
--- NOTE | 2022-04-26 14:36 | HO.PSYCHPN ---
Subjective Subjective Date of Service: 04/26/22 Reason For Visit: psychosis Interim History: Met with patient; discussed with team Patient reports that she is feeling a little better today. Auditory hallucinations are little lower than they were. However although suicidal ideation is less, it remains and she says she feels safe only because she is on the unit. At this time she does not want to change her medications further hoping that recently increased dose will continue to confer increasing benefit. Mental Status Exam Mental Status Exam Narrative: Pt is alert and oriented; behavior is cooperative, cautious but not un-friendly; patient is not in distress; dressed in causal attire adequately groomed; mood is described as anxious and affect congruent; eye contact appropriate; Speech is a little quiet; normal rate and prosody and not pressured; some psychomotor retardation present; thought process is goal directed; Thought content is on dealing with AH, thoughts of self-harm; otherwise pertinent to relevant topics; does not want to harm self but thoughts of SI; no HI; postive for AH. Patients insight and judgment are impaired. Diagnostics Vital Signs (24Hr): Vital Signs - 24 hr 04/25/22 18:00 04/26/22 08:53 Temperature 97.6 F 96.9 F Pulse Rate 75 88 Respiratory Rate 16 18 Blood Pressure 121/74 112/68 Pulse Oximetry 98 98 Oxygen Delivery Method Room Air Room Air BMI result Body Mass Index 36.0 Labs 04/21/22 19:57 04/23/22 08:11 Medications Medications Current Medications Acetaminophen (Acetaminophen 325 Mg Tablet) 650 mg PO Q6H PRN PRN Reason: Headache/Pain Mild Scale (1-3) Last Admin: 04/23/22 21:48 Dose: 650 mg Al Hydroxide/Mg Hydroxide (Magnesium Hydrox/Alum Hydrox 30 Ml Oral.Susp) 30 ml PO Q6H PRN PRN Reason: Heartburn/Nausea Last Admin: 04/22/22 20:19 Dose: 30 ml Benztropine Mesylate (Benztropine Mesylate 1 Mg Tablet) 2 mg PO BID [facility] Last Admin: 04/26/22 08:45 Dose: 2 mg Clindamycin HCl (Clindamycin Hcl 300 Mg Capsule) 300 mg PO BID [facility] Stop: 04/30/22 21:00 Last Admin: 04/26/22 08:45 Dose: 300 mg Clonidine HCl (Clonidine Hcl 0.1 Mg Tablet) 0.1 mg PO DAILY@1900 [facility]; Protocol Last Admin: 04/25/22 19:13 Dose: 0.1 mg Clonidine HCl (Clonidine Hcl 0.1 Mg Tablet) 0.1 mg PO DAILY PRN; Protocol PRN Reason: anxiety Clozapine (Clozapine 100 Mg Tablet) 500 mg PO BEDTIME [facility] Last Admin: 04/25/22 19:13 Dose: 500 mg Hydroxyzine HCl (Hydroxyzine Hcl 25 Mg Tablet) 25 mg PO Q6H PRN PRN Reason: Anxiety Last Admin: 04/24/22 19:05 Dose: 25 mg Lamotrigine (Lamotrigine 25 Mg Tablet) 25 mg PO BID [facility] Last Admin: 04/26/22 08:45 Dose: 25 mg Lorazepam (Lorazepam 1 Mg Tablet) 1 mg PO BID PRN PRN Reason: Anxiety Magnesium Hydroxide (Milk Of Magnesia 30 Ml Oral.Susp) 30 ml PO DAILY PRN PRN Reason: Constipation Melatonin (Melatonin 3 Mg Tablet) 9 mg PO BEDTIME [facility] Last Admin: 04/25/22 19:14 Dose: 9 mg Pharmacy Consult (Consult Rx Perform Med Rec) 1 each MISCELLANE ONCE PRN PRN Reason: Consult order Risperidone (Risperidone 1 Mg Tablet) 1 mg PO Q4H PRN PRN Reason: auditory hallucinations Last Admin: 04/26/22 12:20 Dose: 1 mg Trazodone HCl (Trazodone Hcl 100 Mg Tablet) 100 mg PO BEDTIME [facility] Last Admin: 04/25/22 19:13 Dose: 100 mg Trazodone HCl (Trazodone Hcl 50 Mg Tablet) 50 mg PO BEDTIME PRN PRN Reason: Insomnia Allergies Allergies Allergy/AdvReac Type Severity Reaction Status Date / Time haloperidol [From HALDOL] AdvReac Unknown EYES Verified 10/07/21 16:11 ROLLED BACK Assessment & Plan Assessment & Plan (1) Schizoaffective disorder, depressive type: Status: Acute Code(s): F25.1 - Schizoaffective disorder, depressive type (2) PTSD (post-traumatic stress disorder): Status: Acute Code(s): F43.10 - Post-traumatic stress disorder, unspecified Plan 37 yo female, known to our service, with reports of CAH to kill herself. Recent medication increases not effective, prn Risperdal continues with effect however shadow people are telling her this is a conspiracy and meds will make her feel out of her body. Discussed med effects-she reports they calm voices and numb her at times, offering relief. Also reports significant anxiety. 04/24/22: Change Clonidine to 0.1 mg HS and 0.1 mg daily prn anxiety. 04/25/22 continue tx. 04/26/2022 some small improvement but remains bothered by AH and SI; does not want medication increased at this time; continue current plan Plan: Clindamycin 300 mg bid- 04/23-04/30 to address bacterial vaginosis Clonidine 0.1 mg bid to address anxiety Continue other regime meds as they were just increased Process concerns about mother in law. Patient educated on: diagnosis and medication risk/benefits Informed Consent: understands Reason for contiued inpatient stay Substantial Risk for: harm to self Time Spent With Patient Time: Total time managing care of this patient today ____ minutes.
[2022-04-26 18:00] VITALS: BP 118/78; PULSE 88; RESP 16; TEMP 36.6; O2SAT 99
[2022-04-26] MEDS: cloNIDine HCL 0.1 MG TABLET PO (20:27)
[2022-04-26] MEDS: traZODone HCL 100 MG TABLET PO (20:27)
[2022-04-26] MEDS: cloZAPine 100 MG TABLET 500 MG PO (20:27)
[2022-04-26] MEDS: Melatonin 3 MG TABLET 9 MG PO (20:28)
[2022-04-27 06:00] VITALS: BP 117/78; PULSE 103; RESP 16; TEMP 36.7; O2SAT 97
[2022-04-27] MEDS: lamoTRIgine 25 MG TABLET PO ×2 (09:38→20:22)
[2022-04-27] MEDS: Clindamycin HCL 300 MG CAPSULE PO ×2 (09:38→20:21)
[2022-04-27] MEDS: Benztropine Mesylate 1 MG TABLET 2 MG PO ×2 (09:38→20:22)
[2022-04-27] MEDS: Magnesium Hydrox/Alum Hydrox 30 ML ORAL.SUSP PO (14:09)
[2022-04-27 17:29] VITALS: BP 107/71; PULSE 91; RESP 16; TEMP 36.7; O2SAT 96
--- NOTE | 2022-04-27 17:31 | HO.PSYCHPN ---
Subjective Subjective Date of Service: 04/27/22 Reason For Visit: psychosis Interim History: Met with patient; discussed with nursing Patient says she is feeling the same as yesterday. AH is better but still quite bothersome and patient still struggling with SI not feeling safe to leave the unit. Discussed possible triggers and patient agreed that home life has become much more stressful recently ([id number] now lives there and patient defaulted caregiver). Pt not quite ready to have clozapine increased to which director underwriter sales agrees as it was recently titrated about a week ago. Will get clozapine level which she agrees Mental Status Exam Mental Status Exam Narrative: Pt is alert and oriented; behavior is cooperative, cautious but not un-friendly; patient is not in distress; dressed in causal attire adequately groomed; mood is described as anxious and affect congruent; eye contact appropriate; Speech is a little quiet; normal rate and prosody and not pressured; some psychomotor retardation present; thought process is goal directed; Thought content is on dealing with AH, thoughts of self-harm; otherwise pertinent to relevant topics; does not want to harm self but thoughts of SI; no HI; postive for AH. Patients insight and judgment are impaired. Diagnostics Vital Signs (24Hr): Vital Signs - 24 hr 04/26/22 18:00 04/27/22 06:00 04/27/22 17:29 Temperature 97.9 F 98.1 F 98.1 F Pulse Rate 88 103 H 91 Respiratory Rate 16 16 16 Blood Pressure 118/78 117/78 107/71 Pulse Oximetry 99 97 96 Oxygen Delivery Method Room Air Room Air Room Air BMI result Body Mass Index 36.0 Labs 04/21/22 19:57 04/23/22 08:11 Medications Medications Current Medications Acetaminophen (Acetaminophen 325 Mg Tablet) 650 mg PO Q6H PRN PRN Reason: Headache/Pain Mild Scale (1-3) Last Admin: 04/23/22 21:48 Dose: 650 mg Al Hydroxide/Mg Hydroxide (Magnesium Hydrox/Alum Hydrox 30 Ml Oral.Susp) 30 ml PO Q6H PRN PRN Reason: Heartburn/Nausea Last Admin: 04/27/22 14:09 Dose: 30 ml Benztropine Mesylate (Benztropine Mesylate 1 Mg Tablet) 2 mg PO BID [facility] Last Admin: 04/27/22 09:38 Dose: 2 mg Clindamycin HCl (Clindamycin Hcl 300 Mg Capsule) 300 mg PO BID [facility] Stop: 04/30/22 21:00 Last Admin: 04/27/22 09:38 Dose: 300 mg Clonidine HCl (Clonidine Hcl 0.1 Mg Tablet) 0.1 mg PO DAILY@1900 [facility]; Protocol Last Admin: 04/26/22 20:27 Dose: 0.1 mg Clonidine HCl (Clonidine Hcl 0.1 Mg Tablet) 0.1 mg PO DAILY PRN; Protocol PRN Reason: anxiety Clozapine (Clozapine 100 Mg Tablet) 500 mg PO BEDTIME [facility] Last Admin: 04/26/22 20:27 Dose: 500 mg Hydroxyzine HCl (Hydroxyzine Hcl 25 Mg Tablet) 25 mg PO Q6H PRN PRN Reason: Anxiety Last Admin: 04/24/22 19:05 Dose: 25 mg Lamotrigine (Lamotrigine 25 Mg Tablet) 25 mg PO BID [facility] Last Admin: 04/27/22 09:38 Dose: 25 mg Magnesium Hydroxide (Milk Of Magnesia 30 Ml Oral.Susp) 30 ml PO DAILY PRN PRN Reason: Constipation Melatonin (Melatonin 3 Mg Tablet) 9 mg PO BEDTIME [facility] Last Admin: 04/26/22 20:28 Dose: 9 mg Pharmacy Consult (Consult Rx Perform Med Rec) 1 each MISCELLANE ONCE PRN PRN Reason: Consult order Risperidone (Risperidone 1 Mg Tablet) 1 mg PO Q4H PRN PRN Reason: auditory hallucinations Last Admin: 04/26/22 12:20 Dose: 1 mg Trazodone HCl (Trazodone Hcl 100 Mg Tablet) 100 mg PO BEDTIME [facility] Last Admin: 04/26/22 20:27 Dose: 100 mg Trazodone HCl (Trazodone Hcl 50 Mg Tablet) 50 mg PO BEDTIME PRN PRN Reason: Insomnia Allergies Allergies Allergy/AdvReac Type Severity Reaction Status Date / Time haloperidol [From HALDOL] AdvReac Unknown EYES Verified 10/07/21 16:11 ROLLED BACK Assessment & Plan Assessment & Plan (1) Schizoaffective disorder, depressive type: Status: Acute Code(s): F25.1 - Schizoaffective disorder, depressive type (2) PTSD (post-traumatic stress disorder): Status: Acute Code(s): F43.10 - Post-traumatic stress disorder, unspecified Plan 37 yo female, known to our service, with reports of CAH to kill herself. Recent medication increases not effective, prn Risperdal continues with effect however shadow people are telling her this is a conspiracy and meds will make her feel out of her body. Discussed med effects-she reports they calm voices and numb her at times, offering relief. Also reports significant anxiety. 04/24/22: Change Clonidine to 0.1 mg HS and 0.1 mg daily prn anxiety. 04/25/22 continue tx. 04/26/2022 some small improvement but remains bothered by AH and SI; does not want medication increased at this time; continue current plan 04/27 continue current treatment plan; will get clozapine level Plan: CV Q 15 minute checks Ordered clozapine level Continue current clozapine dose (recently increased about a week ago) Clindamycin 300 mg bid- 04/23-04/30 to address bacterial vaginosis Clonidine 0.1 mg bid to address anxiety Continue other regime meds as they were just increased Process concerns about mother in law. Patient educated on: diagnosis and medication risk/benefits Informed Consent: understands Reason for contiued inpatient stay Substantial Risk for: rapid decompensation Time Spent With Patient Time: Total time managing care of this patient today ____ minutes.
[2022-04-27] MEDS: risperiDONE 1 MG TABLET PO (17:42)
[2022-04-27] MEDS: cloZAPine 100 MG TABLET 500 MG PO (20:21)
[2022-04-27] MEDS: traZODone HCL 100 MG TABLET PO (20:21)
[2022-04-27] MEDS: Melatonin 3 MG TABLET 9 MG PO (20:22)
[2022-04-28] MEDS: Clindamycin HCL 300 MG CAPSULE PO ×2 (08:03→22:17)
[2022-04-28] MEDS: lamoTRIgine 25 MG TABLET PO ×2 (08:03→22:18)
[2022-04-28] MEDS: Benztropine Mesylate 1 MG TABLET 2 MG PO ×2 (08:03→22:17)
[2022-04-28 08:23] VITALS: BP 105/61; PULSE 77; RESP 14; TEMP 36.8; O2SAT 99
--- NOTE | 2022-04-28 13:13 | PC.NURSE ---
pt refused bloodwork
[2022-04-28] MEDS: hydrOXYzine HCL 25 MG TABLET PO (14:51)
--- NOTE | 2022-04-28 16:49 | HO.PSYCHPN ---
Subjective Subjective Date of Service: 04/28/22 Reason For Visit: psychosis Subjective Notes: Conditional Voluntary Interim History: Reports a difficult weekend- no improvement . Voices tell her medicines are poison. Team reports an episode of chest pain on 04/27 with Maalox prn with positive results. Discussed difficulty in asking for prns with voices-discussed scheduling Risperdal for a trial period to assess efficacy on sx mgt and anxiety with her response to CAH. She concurs. Medication Compliance: Yes Side effects from medications: No Attending Groups: Yes Review of Systems Acute medical concerns: No Medical Review of Systems: unchanged Mental Status Exam Mental Status Exam Patient Appearance: Appropriate Patient Orientation: Person, Place, Time and Situation Level of Consciousness: Alert Patient Behavior: Appropriate, Talkative, Cooperative and Good Eye Contact Mood Description: Apprehensive Affect Description: Apprehensive Patient Cognition Impaired: No Ability to Follow Directions: Good Speech Pattern: Spontaneous Speech Memory Description: Intact Hallucinations: Auditory and Visual Delusions: Paranoid Ideation and Present Perceptual Disturbances: Depersonalization and Derealization Thought Process: Distracted and Rumination Thought Content: positive for Perseveration Depressive Symptoms: Increased Anxiety, Diff. Making Decisions and Low Self Esteem Judgement: Fair Diagnostics Vital Signs (24Hr): Vital Signs - 24 hr 04/27/22 17:29 04/28/22 08:23 Temperature 98.1 F 98.3 F Pulse Rate 91 77 Respiratory Rate 16 14 Blood Pressure 107/71 105/61 Pulse Oximetry 96 99 Oxygen Delivery Method Room Air Room Air BMI result Body Mass Index 36.0 Labs 04/21/22 19:57 04/23/22 08:11 Medications Medications Current Medications Acetaminophen (Acetaminophen 325 Mg Tablet) 650 mg PO Q6H PRN PRN Reason: Headache/Pain Mild Scale (1-3) Last Admin: 04/23/22 21:48 Dose: 650 mg Al Hydroxide/Mg Hydroxide (Magnesium Hydrox/Alum Hydrox 30 Ml Oral.Susp) 30 ml PO Q6H PRN PRN Reason: Heartburn/Nausea Last Admin: 04/27/22 14:09 Dose: 30 ml Benztropine Mesylate (Benztropine Mesylate 1 Mg Tablet) 2 mg PO BID [facility] Last Admin: 04/28/22 08:03 Dose: 2 mg Clindamycin HCl (Clindamycin Hcl 300 Mg Capsule) 300 mg PO BID [facility] Stop: 04/30/22 21:00 Last Admin: 04/28/22 08:03 Dose: 300 mg Clonidine HCl (Clonidine Hcl 0.1 Mg Tablet) 0.1 mg PO DAILY@1900 [facility]; Protocol Last Admin: 04/26/22 20:27 Dose: 0.1 mg Clonidine HCl (Clonidine Hcl 0.1 Mg Tablet) 0.1 mg PO DAILY PRN; Protocol PRN Reason: anxiety Clozapine (Clozapine 100 Mg Tablet) 500 mg PO BEDTIME [facility] Last Admin: 04/27/22 20:21 Dose: 500 mg Hydroxyzine HCl (Hydroxyzine Hcl 25 Mg Tablet) 25 mg PO Q6H PRN PRN Reason: Anxiety Last Admin: 04/28/22 14:51 Dose: 25 mg Lamotrigine (Lamotrigine 25 Mg Tablet) 25 mg PO BID [facility] Last Admin: 04/28/22 08:03 Dose: 25 mg Magnesium Hydroxide (Milk Of Magnesia 30 Ml Oral.Susp) 30 ml PO DAILY PRN PRN Reason: Constipation Melatonin (Melatonin 3 Mg Tablet) 9 mg PO BEDTIME [facility] Last Admin: 04/27/22 20:22 Dose: 9 mg Pharmacy Consult (Consult Rx Perform Med Rec) 1 each MISCELLANE ONCE PRN PRN Reason: Consult order Risperidone (Risperidone 1 Mg Tablet) 1 mg PO Q4H PRN PRN Reason: auditory hallucinations Last Admin: 04/27/22 17:42 Dose: 1 mg Trazodone HCl (Trazodone Hcl 100 Mg Tablet) 100 mg PO BEDTIME [facility] Last Admin: 04/27/22 20:21 Dose: 100 mg Trazodone HCl (Trazodone Hcl 50 Mg Tablet) 50 mg PO BEDTIME PRN PRN Reason: Insomnia Allergies Allergies Allergy/AdvReac Type Severity Reaction Status Date / Time haloperidol [From HALDOL] AdvReac Unknown EYES Verified 10/07/21 16:11 ROLLED BACK Assessment & Plan Assessment & Plan (1) Schizoaffective disorder, depressive type: Status: Acute Code(s): F25.1 - Schizoaffective disorder, depressive type (2) PTSD (post-traumatic stress disorder): Status: Acute Code(s): F43.10 - Post-traumatic stress disorder, unspecified Plan 37 yo female, known to our service, with reports of CAH to kill herself. Recent medication increases not effective, prn Risperdal continues with effect however shadow people are telling her this is a conspiracy and meds will make her feel out of her body. Discussed med effects-she reports they calm voices and numb her at times, offering relief. Also reports significant anxiety. 04/24/22: Change Clonidine to 0.1 mg HS and 0.1 mg daily prn anxiety. 04/25/22 continue tx. 04/26/2022 some small improvement but remains bothered by AH and SI; does not want medication increased at this time; continue current plan 04/27 continue current treatment plan; will get clozapine level 04/28/22: Risperdal 1 mg bid Plan: CV Q 15 minute checks Ordered clozapine level Continue current clozapine dose (recently increased about a week ago) Clindamycin 300 mg bid- 04/23-04/30 to address bacterial vaginosis Clonidine 0.1 mg bid to address anxiety Continue other regime meds as they were just increased Process concerns about mother in law. Patient educated on: medication risk/benefits Informed Consent: understands Reason for contiued inpatient stay Substantial Risk for: inability to function and rapid decompensation Time Spent With Patient Time: Total time managing care of this patient today ____ minutes.
[2022-04-28 18:00] VITALS: BP 126/74; PULSE 106; TEMP 36.3; O2SAT 96
[2022-04-28] MEDS: cloNIDine HCL 0.1 MG TABLET PO (18:50)
[2022-04-28] MEDS: risperiDONE 1 MG TABLET PO ×2 (20:32→22:17)
[2022-04-28] MEDS: cloZAPine 100 MG TABLET 500 MG PO (22:17)
[2022-04-28] MEDS: traZODone HCL 100 MG TABLET PO (22:18)
[2022-04-28] MEDS: Melatonin 3 MG TABLET 9 MG PO (22:18)
[2022-04-29 08:43] VITALS: BP 97/55; PULSE 82; RESP 18; TEMP 36.8; O2SAT 95
[2022-04-29] MEDS: Benztropine Mesylate 1 MG TABLET 2 MG PO ×2 (08:45→22:16)
[2022-04-29] MEDS: risperiDONE 1 MG TABLET PO ×4 (08:45→22:16)
[2022-04-29] MEDS: lamoTRIgine 25 MG TABLET PO ×2 (08:45→22:15)
[2022-04-29] MEDS: Clindamycin HCL 300 MG CAPSULE PO ×2 (08:45→22:13)
[2022-04-29] MEDS: bisacodyL 5 MG TABLET.DR 10 MG PO (11:03)
[2022-04-29 12:11] LABS: Neutrophils Absolute Auto 3.4 x10*3/uL (2.0-8.3); WBCANC 7.4 X10*3/uL
[2022-04-29] MEDS: hydrOXYzine HCL 25 MG TABLET PO (13:47)
[2022-04-29] MEDS: Magnesium Hydrox/Alum Hydrox 30 ML ORAL.SUSP PO (18:29)
[2022-04-29 18:32] VITALS: BP 123/69; PULSE 106; RESP 16; TEMP 36.5; O2SAT 96
[2022-04-29 21:05] VITALS: BP 127/86; PULSE 107; TEMP 36.6
[2022-04-29] MEDS: cloNIDine HCL 0.1 MG TABLET PO (21:15)
--- NOTE | 2022-04-29 21:22 | P.PNPSI_ITS ---
Subjective Subjective Date of Service: 04/29/22 Reason For Visit: psychosis Subjective Notes: Conditional Voluntary Interim History: Review of issues with constipation. Marisa regime initiated-colace, senna, miralax Discussed anxiety sx and mgt. Will re-start clonidine bid Pt looking forward to a visit with her children Voices continue to be a problematic sx. Discussion of a stronger augment vs Risperdal. She will consider. Medication Compliance: Yes Side effects from medications: No Attending Groups: Yes Review of Systems Acute medical concerns: No Medical Review of Systems: unchanged Mental Status Exam Mental Status Exam Patient Appearance: Appropriate Patient Orientation: Person, Place, Time and Situation Level of Consciousness: Alert Patient Behavior: Appropriate, Talkative, Cooperative and Good Eye Contact Mood Description: Apprehensive Affect Description: Apprehensive Patient Cognition Impaired: No Ability to Follow Directions: Good Speech Pattern: Spontaneous Speech Memory Description: Intact Hallucinations: Auditory and Visual Delusions: Paranoid Ideation and Present Perceptual Disturbances: Depersonalization and Derealization Thought Process: Distracted and Rumination Thought Content: positive for Perseveration Depressive Symptoms: Increased Anxiety, Diff. Making Decisions and Low Self Esteem Judgement: Fair Diagnostics Vital Signs (24Hr): Vital Signs - 24 hr 04/29/22 08:43 04/29/22 18:32 Temperature 98.3 F 97.7 F Pulse Rate 82 106 H Respiratory Rate 18 16 Blood Pressure 97/55 L 123/69 Pulse Oximetry 95 96 Oxygen Delivery Method Room Air Room Air BMI result Body Mass Index 36.0 Labs 04/21/22 19:57 04/23/22 08:11 Labs: Laboratory Results - last 48 hr 04/29/22 12:05 Absolute Neuts (auto) 3.4 Medications Medications Current Medications Acetaminophen (Acetaminophen 325 Mg Tablet) 650 mg PO Q6H PRN PRN Reason: Headache/Pain Mild Scale (1-3) Last Admin: 04/23/22 21:48 Dose: 650 mg Al Hydroxide/Mg Hydroxide (Magnesium Hydrox/Alum Hydrox 30 Ml Oral.Susp) 30 ml PO Q6H PRN PRN Reason: Heartburn/Nausea Last Admin: 04/29/22 18:29 Dose: 30 ml Benztropine Mesylate (Benztropine Mesylate 1 Mg Tablet) 2 mg PO BID [facility] Last Admin: 04/29/22 08:45 Dose: 2 mg Clindamycin HCl (Clindamycin Hcl 300 Mg Capsule) 300 mg PO BID [facility] Stop: 04/30/22 21:00 Last Admin: 04/29/22 08:45 Dose: 300 mg Clonidine HCl (Clonidine Hcl 0.1 Mg Tablet) 0.1 mg PO DAILY PRN; Protocol PRN Reason: anxiety Clonidine HCl (Clonidine Hcl 0.1 Mg Tablet) 0.1 mg PO BID@0900,1900 [facility]; Protocol Last Admin: 04/29/22 21:15 Dose: 0.1 mg Clozapine (Clozapine 100 Mg Tablet) 500 mg PO BEDTIME [facility] Last Admin: 04/28/22 22:17 Dose: 500 mg Docusate Sodium (Docusate Sodium 100 Mg Capsule) 100 mg PO BID [facility] Hydroxyzine HCl (Hydroxyzine Hcl 25 Mg Tablet) 25 mg PO Q6H PRN PRN Reason: Anxiety Last Admin: 04/29/22 13:47 Dose: 25 mg Lamotrigine (Lamotrigine 25 Mg Tablet) 25 mg PO BID [facility] Last Admin: 04/29/22 08:45 Dose: 25 mg Magnesium Hydroxide (Milk Of Magnesia 30 Ml Oral.Susp) 30 ml PO DAILY PRN PRN Reason: Constipation Melatonin (Melatonin 3 Mg Tablet) 9 mg PO BEDTIME [facility] Last Admin: 04/28/22 22:18 Dose: 9 mg Pharmacy Consult (Consult Rx Perform Med Rec) 1 each MISCELLANE ONCE PRN PRN Reason: Consult order Polyethylene Glycol (Polyethylene Glycol 3350 17 Gm Powd.Pack) 17 gm PO DAILY [facility] Risperidone (Risperidone 1 Mg Tablet) 1 mg PO Q4H PRN PRN Reason: auditory hallucinations Last Admin: 04/29/22 21:17 Dose: 1 mg Risperidone (Risperidone 1 Mg Tablet) 1 mg PO BID [facility] Last Admin: 04/29/22 08:45 Dose: 1 mg Senna (Sennosides 8.6 Mg Tablet) 17.2 mg PO BEDTIME [facility] Trazodone HCl (Trazodone Hcl 100 Mg Tablet) 100 mg PO BEDTIME [facility] Last Admin: 04/28/22 22:18 Dose: 100 mg Trazodone HCl (Trazodone Hcl 50 Mg Tablet) 50 mg PO BEDTIME PRN PRN Reason: Insomnia Allergies Allergies Allergy/AdvReac Type Severity Reaction Status Date / Time haloperidol [From HALDOL] AdvReac Unknown EYES Verified 10/07/21 16:11 ROLLED BACK Assessment & Plan Assessment & Plan (1) Schizoaffective disorder, depressive type: Status: Acute Code(s): F25.1 - Schizoaffective disorder, depressive type (2) PTSD (post-traumatic stress disorder): Status: Acute Code(s): F43.10 - Post-traumatic stress disorder, unspecified Plan 37 yo female, known to our service, with reports of CAH to kill herself. Recent medication increases not effective, prn Risperdal continues with effect however shadow people are telling her this is a conspiracy and meds will make her feel out of her body. Discussed med effects-she reports they calm voices and numb her at times, offering relief. Also reports significant anxiety. 04/24/22: Change Clonidine to 0.1 mg HS and 0.1 mg daily prn anxiety. 04/25/22 continue tx. 04/26/2022 some small improvement but remains bothered by AH and SI; does not want medication increased at this time; continue current plan 04/27 continue current treatment plan; will get clozapine level 04/29/22 Bowel regime-colace, senna, miralax Increase clonidine to bid 0.1 mg Plan: CV Q 15 minute checks Ordered clozapine level Continue current clozapine dose (recently increased about a week ago) Clindamycin 300 mg bid- 04/23-04/30 to address bacterial vaginosis Clonidine 0.1 mg bid to address anxiety Continue other regime meds as they were just increased Process concerns about mother in law. Patient educated on: medication risk/benefits Informed Consent: understands and further education needed Reason for contiued inpatient stay Substantial Risk for: rapid decompensation Time Spent With Patient Time: Total time managing care of this patient today ____ minutes.
[2022-04-29] MEDS: Melatonin 3 MG TABLET 9 MG PO (22:13)
[2022-04-29] MEDS: cloZAPine 100 MG TABLET 500 MG PO (22:14)
[2022-04-29] MEDS: Docusate Sodium 100 MG CAPSULE PO (22:15)
[2022-04-29] MEDS: traZODone HCL 100 MG TABLET PO (22:16)
[2022-04-29] MEDS: Sennosides 8.6 MG TABLET 17.2 MG PO (22:16)
[2022-04-30] MEDS: Benztropine Mesylate 1 MG TABLET 2 MG PO ×2 (08:52→21:35)
[2022-04-30] MEDS: lamoTRIgine 25 MG TABLET PO ×2 (08:52→21:37)
[2022-04-30] MEDS: cloNIDine HCL 0.1 MG TABLET PO ×2 (08:52→18:34)
[2022-04-30] MEDS: risperiDONE 1 MG TABLET PO ×2 (08:52→21:37)
[2022-04-30] MEDS: Clindamycin HCL 300 MG CAPSULE PO ×2 (08:52→21:36)
[2022-04-30] MEDS: Docusate Sodium 100 MG CAPSULE PO ×2 (08:52→21:37)
[2022-04-30 09:00] VITALS: BP 105/60; PULSE 71; RESP 18; TEMP 36.6; O2SAT 97
[2022-04-30 18:30] VITALS: BP 123/76; PULSE 96; TEMP 36.7; O2SAT 99
--- NOTE | 2022-04-30 18:37 | HO.PSYCHPN ---
Subjective Subjective Date of Service: 04/30/22 Reason For Visit: psychosis Subjective Notes: Conditional Voluntary Healthcare Proxy: No Guardianship: No Medical Problems Affecting Mental Status: No Interim History: Pt reports head banging to relieve voices at times. Identifies Thursday evenings as the worst time for her. the voices fuel the anxiety Identifies the sources of the anxiety on Thursday to needing to drive the children to school, worry the family will have an accident when she drives, worry that she is not doing enough and is a bad parent, . As a result, when driving she often has panic attacks. States she would like to be at her best-go to the [employer], [place], have her hair and nails done, go out with friends, but cannot-voices stop her from this. Discussed working on anxiety mgt. Medication Compliance: Yes Side effects from medications: No Attending Groups: Yes Review of Systems Acute medical concerns: No Medical Review of Systems: unchanged Mental Status Exam Mental Status Exam Patient Appearance: Appropriate Patient Orientation: Person, Place, Time and Situation Level of Consciousness: Alert Patient Behavior: Appropriate, Talkative, Cooperative and Good Eye Contact Mood Description: Apprehensive Affect Description: Apprehensive Patient Cognition Impaired: No Ability to Follow Directions: Good Speech Pattern: Spontaneous Speech Memory Description: Intact Hallucinations: Auditory and Visual Delusions: Paranoid Ideation and Present Perceptual Disturbances: Depersonalization and Derealization Thought Process: Distracted and Rumination Thought Content: positive for Perseveration Depressive Symptoms: Increased Anxiety, Diff. Making Decisions and Low Self Esteem Judgement: Fair Diagnostics Vital Signs (24Hr): Vital Signs - 24 hr 04/29/22 21:05 04/30/22 09:00 Temperature 97.9 F 97.8 F Pulse Rate 107 H 71 Respiratory Rate 18 Blood Pressure 127/86 105/60 Pulse Oximetry 97 Oxygen Delivery Method Room Air BMI result Body Mass Index 36.0 Labs 04/21/22 19:57 04/23/22 08:11 Labs: Laboratory Results - last 48 hr 04/29/22 12:05 Absolute Neuts (auto) 3.4 Medications Medications Current Medications Acetaminophen (Acetaminophen 325 Mg Tablet) 650 mg PO Q6H PRN PRN Reason: Headache/Pain Mild Scale (1-3) Last Admin: 04/23/22 21:48 Dose: 650 mg Al Hydroxide/Mg Hydroxide (Magnesium Hydrox/Alum Hydrox 30 Ml Oral.Susp) 30 ml PO Q6H PRN PRN Reason: Heartburn/Nausea Last Admin: 04/29/22 18:29 Dose: 30 ml Benztropine Mesylate (Benztropine Mesylate 1 Mg Tablet) 2 mg PO BID [facility] Last Admin: 04/30/22 08:52 Dose: 2 mg Clindamycin HCl (Clindamycin Hcl 300 Mg Capsule) 300 mg PO BID [facility] Stop: 04/30/22 21:00 Last Admin: 04/30/22 08:52 Dose: 300 mg Clonidine HCl (Clonidine Hcl 0.1 Mg Tablet) 0.1 mg PO DAILY PRN; Protocol PRN Reason: anxiety Clonidine HCl (Clonidine Hcl 0.1 Mg Tablet) 0.1 mg PO BID@0900,1900 [facility]; Protocol Last Admin: 04/30/22 18:34 Dose: 0.1 mg Clozapine (Clozapine 100 Mg Tablet) 500 mg PO BEDTIME [facility] Last Admin: 04/29/22 22:14 Dose: 500 mg Docusate Sodium (Docusate Sodium 100 Mg Capsule) 100 mg PO BID [facility] Last Admin: 04/30/22 08:52 Dose: 100 mg Hydroxyzine HCl (Hydroxyzine Hcl 25 Mg Tablet) 25 mg PO Q6H PRN PRN Reason: Anxiety Last Admin: 04/29/22 13:47 Dose: 25 mg Lamotrigine (Lamotrigine 25 Mg Tablet) 25 mg PO BID [facility] Last Admin: 04/30/22 08:52 Dose: 25 mg Magnesium Hydroxide (Milk Of Magnesia 30 Ml Oral.Susp) 30 ml PO DAILY PRN PRN Reason: Constipation Melatonin (Melatonin 3 Mg Tablet) 9 mg PO BEDTIME [facility] Last Admin: 04/29/22 22:13 Dose: 9 mg Pharmacy Consult (Consult Rx Perform Med Rec) 1 each MISCELLANE ONCE PRN PRN Reason: Consult order Polyethylene Glycol (Polyethylene Glycol 3350 17 Gm Powd.Pack) 17 gm PO DAILY [facility] Last Admin: 04/30/22 08:52 Dose: Not Given Risperidone (Risperidone 1 Mg Tablet) 1 mg PO Q4H PRN PRN Reason: auditory hallucinations Last Admin: 04/29/22 21:17 Dose: 1 mg Risperidone (Risperidone 1 Mg Tablet) 1 mg PO BID [facility] Last Admin: 04/30/22 08:52 Dose: 1 mg Senna (Sennosides 8.6 Mg Tablet) 17.2 mg PO BEDTIME [facility] Last Admin: 04/29/22 22:16 Dose: 17.2 mg Trazodone HCl (Trazodone Hcl 100 Mg Tablet) 100 mg PO BEDTIME [facility] Last Admin: 04/29/22 22:16 Dose: 100 mg Trazodone HCl (Trazodone Hcl 50 Mg Tablet) 50 mg PO BEDTIME PRN PRN Reason: Insomnia Allergies Allergies Allergy/AdvReac Type Severity Reaction Status Date / Time haloperidol [From HALDOL] AdvReac Unknown EYES Verified 10/07/21 16:11 ROLLED BACK Assessment & Plan Assessment & Plan (1) Schizoaffective disorder, depressive type: Status: Acute Code(s): F25.1 - Schizoaffective disorder, depressive type (2) PTSD (post-traumatic stress disorder): Status: Acute Code(s): F43.10 - Post-traumatic stress disorder, unspecified Plan 37 yo female, known to our service, with reports of CAH to kill herself. Recent medication increases not effective, prn Risperdal continues with effect however shadow people are telling her this is a conspiracy and meds will make her feel out of her body. Discussed med effects-she reports they calm voices and numb her at times, offering relief. Also reports significant anxiety. 04/24/22: Change Clonidine to 0.1 mg HS and 0.1 mg daily prn anxiety. 04/25/22 continue tx. 04/26/2022 some small improvement but remains bothered by AH and SI; does not want medication increased at this time; continue current plan 04/27 continue current treatment plan; will get clozapine level 04/28/22: Risperdal 1 mg bid 04/30/33: Change clonidine to 0.1 mg 0900, 1900 Bowel regime-colace, miralax, senna Clozaril level pending still Plan: CV Q 15 minute checks Ordered clozapine level Continue current clozapine dose (recently increased about a week ago) Clindamycin 300 mg bid- 04/23-04/30 to address bacterial vaginosis Clonidine 0.1 mg bid to address anxiety Continue other regime meds as they were just increased Process concerns about mother in law. Patient educated on: therapeutic strategies Informed Consent: understands and further education needed Reason for contiued inpatient stay Substantial Risk for: rapid decompensation Time Spent With Patient Time: Total time managing care of this patient today ____ minutes.
[2022-04-30] MEDS: Melatonin 3 MG TABLET 9 MG PO (21:35)
[2022-04-30] MEDS: cloZAPine 100 MG TABLET 500 MG PO (21:36)
[2022-04-30] MEDS: Sennosides 8.6 MG TABLET 17.2 MG PO (21:37)
[2022-04-30] MEDS: traZODone HCL 100 MG TABLET PO (21:37)
[2022-05-01 09:05] VITALS: BP 106/60; PULSE 74; RESP 16; TEMP 36.3; O2SAT 95
[2022-05-01] MEDS: cloNIDine HCL 0.1 MG TABLET PO ×3 (09:30→19:26)
[2022-05-01] MEDS: lamoTRIgine 25 MG TABLET PO ×2 (09:30→20:30)
[2022-05-01] MEDS: Benztropine Mesylate 1 MG TABLET 2 MG PO ×2 (09:30→20:31)
[2022-05-01] MEDS: risperiDONE 1 MG TABLET PO ×2 (09:30→20:31)
[2022-05-01] MEDS: polyethylene glycoL 3350 17 GM POWD.PACK PO (09:30)
[2022-05-01] MEDS: Docusate Sodium 100 MG CAPSULE PO ×2 (09:30→20:31)
--- NOTE | 2022-05-01 14:15 | HO.PSYCHPN ---
Subjective Subjective Date of Service: 05/01/22 Reason For Visit: psychosis Subjective Notes: Conditional Voluntary Interim History: Reports voices are decreased to whispers, anxiety is managable, and she is presenting with an increase in calmness and relief. Reports sleep is appropriate. States regime changes have been useful Medication Compliance: Yes Side effects from medications: No Attending Groups: Yes Review of Systems Acute medical concerns: No Medical Review of Systems: unchanged Mental Status Exam Mental Status Exam Patient Appearance: Appropriate Patient Orientation: Person, Place, Time and Situation Level of Consciousness: Alert Patient Behavior: Appropriate, Talkative, Cooperative and Good Eye Contact Mood Description: Appropriate Affect Description: Appropriate Patient Cognition Impaired: No Ability to Follow Directions: Good Speech Pattern: Spontaneous Speech Memory Description: Intact Hallucinations: Auditory (marked decrease) Delusions: Paranoid Ideation and Present Perceptual Disturbances: Depersonalization and Derealization Thought Process: Intact Thought Content: positive for Intact Depressive Symptoms: Increased Anxiety, Diff. Making Decisions and Low Self Esteem Judgement: Fair Diagnostics Vital Signs (24Hr): Vital Signs - 24 hr 04/30/22 18:30 05/01/22 09:05 Temperature 98.1 F 97.4 F Pulse Rate 96 74 Respiratory Rate 16 Blood Pressure 123/76 106/60 Pulse Oximetry 99 95 Oxygen Delivery Method Room Air Room Air BMI result Body Mass Index 36.0 Labs 04/21/22 19:57 04/23/22 08:11 Medications Medications Current Medications Acetaminophen (Acetaminophen 325 Mg Tablet) 650 mg PO Q6H PRN PRN Reason: Headache/Pain Mild Scale (1-3) Last Admin: 04/23/22 21:48 Dose: 650 mg Al Hydroxide/Mg Hydroxide (Magnesium Hydrox/Alum Hydrox 30 Ml Oral.Susp) 30 ml PO Q6H PRN PRN Reason: Heartburn/Nausea Last Admin: 04/29/22 18:29 Dose: 30 ml Benztropine Mesylate (Benztropine Mesylate 1 Mg Tablet) 2 mg PO BID [facility] Last Admin: 05/01/22 09:30 Dose: 2 mg Clonidine HCl (Clonidine Hcl 0.1 Mg Tablet) 0.1 mg PO DAILY PRN; Protocol PRN Reason: anxiety Clonidine HCl (Clonidine Hcl 0.1 Mg Tablet) 0.1 mg PO BID@0900,1900 [facility]; Protocol Last Admin: 05/01/22 09:30 Dose: 0.1 mg Clozapine (Clozapine 100 Mg Tablet) 500 mg PO BEDTIME [facility] Last Admin: 04/30/22 21:36 Dose: 500 mg Docusate Sodium (Docusate Sodium 100 Mg Capsule) 100 mg PO BID [facility] Last Admin: 05/01/22 09:30 Dose: 100 mg Hydroxyzine HCl (Hydroxyzine Hcl 25 Mg Tablet) 25 mg PO Q6H PRN PRN Reason: Anxiety Last Admin: 04/29/22 13:47 Dose: 25 mg Lamotrigine (Lamotrigine 25 Mg Tablet) 25 mg PO BID [facility] Last Admin: 05/01/22 09:30 Dose: 25 mg Magnesium Hydroxide (Milk Of Magnesia 30 Ml Oral.Susp) 30 ml PO DAILY PRN PRN Reason: Constipation Melatonin (Melatonin 3 Mg Tablet) 9 mg PO BEDTIME [facility] Last Admin: 04/30/22 21:35 Dose: 9 mg Pharmacy Consult (Consult Rx Perform Med Rec) 1 each MISCELLANE ONCE PRN PRN Reason: Consult order Polyethylene Glycol (Polyethylene Glycol 3350 17 Gm Powd.Pack) 17 gm PO DAILY [facility] Last Admin: 05/01/22 09:30 Dose: 17 gm Risperidone (Risperidone 1 Mg Tablet) 1 mg PO Q4H PRN PRN Reason: auditory hallucinations Last Admin: 04/29/22 21:17 Dose: 1 mg Risperidone (Risperidone 1 Mg Tablet) 1 mg PO BID [facility] Last Admin: 05/01/22 09:30 Dose: 1 mg Senna (Sennosides 8.6 Mg Tablet) 17.2 mg PO BEDTIME [facility] Last Admin: 04/30/22 21:37 Dose: 17.2 mg Trazodone HCl (Trazodone Hcl 100 Mg Tablet) 100 mg PO BEDTIME [facility] Last Admin: 04/30/22 21:37 Dose: 100 mg Trazodone HCl (Trazodone Hcl 50 Mg Tablet) 50 mg PO BEDTIME PRN PRN Reason: Insomnia Allergies Allergies Allergy/AdvReac Type Severity Reaction Status Date / Time haloperidol [From HALDOL] AdvReac Unknown EYES Verified 10/07/21 16:11 ROLLED BACK Assessment & Plan Assessment & Plan (1) Schizoaffective disorder, depressive type: Status: Acute Code(s): F25.1 - Schizoaffective disorder, depressive type (2) PTSD (post-traumatic stress disorder): Status: Acute Code(s): F43.10 - Post-traumatic stress disorder, unspecified Plan 37 yo female, known to our service, with reports of CAH to kill herself. Recent medication increases not effective, prn Risperdal continues with effect however shadow people are telling her this is a conspiracy and meds will make her feel out of her body. Discussed med effects-she reports they calm voices and numb her at times, offering relief. Also reports significant anxiety. 04/24/22: Change Clonidine to 0.1 mg HS and 0.1 mg daily prn anxiety. 04/25/22 continue tx. 04/26/2022 some small improvement but remains bothered by AH and SI; does not want medication increased at this time; continue current plan 04/27 continue current treatment plan; will get clozapine level 04/29/22 Bowel regime-colace, senna, miralax Increase clonidine to bid 0.1 mg 05/01/22 Continue current regime Plan: CV Q 15 minute checks Ordered clozapine level Continue current clozapine dose (recently increased about a week ago) Clindamycin 300 mg bid- 04/23-04/30 to address bacterial vaginosis Clonidine 0.1 mg bid to address anxiety Continue other regime meds as they were just increased Process concerns about mother in law. Patient educated on: medication risk/benefits and therapeutic strategies Informed Consent: understands Reason for contiued inpatient stay Substantial Risk for: rapid decompensation Time Spent With Patient Time: Total time managing care of this patient today ____ minutes.
[2022-05-01 17:44] LABS: Norclozapine 908 mcg/L (25-400)
[2022-05-01 18:00] VITALS: BP 132/80; PULSE 106; RESP 18; TEMP 36.8; O2SAT 98
[2022-05-01 18:12] LABS: Clozapine (Clozaril) 1302
[2022-05-01] MEDS: Sennosides 8.6 MG TABLET 17.2 MG PO (20:30)
[2022-05-01] MEDS: traZODone HCL 100 MG TABLET PO (20:30)
[2022-05-01] MEDS: cloZAPine 100 MG TABLET 500 MG PO (20:30)
[2022-05-01] MEDS: Melatonin 3 MG TABLET 9 MG PO (20:31)
[2022-05-02] MEDS: risperiDONE 1 MG TABLET PO ×2 (09:12→21:30)
[2022-05-02] MEDS: Benztropine Mesylate 1 MG TABLET 2 MG PO ×2 (09:12→21:29)
[2022-05-02] MEDS: Docusate Sodium 100 MG CAPSULE PO ×2 (09:12→21:29)
[2022-05-02] MEDS: cloNIDine HCL 0.1 MG TABLET PO ×2 (09:12→20:13)
[2022-05-02] MEDS: lamoTRIgine 25 MG TABLET PO ×2 (09:12→21:29)
[2022-05-02 09:16] VITALS: BP 104/56; PULSE 86; RESP 18; TEMP 36.5; O2SAT 98
--- NOTE | 2022-05-02 10:35 | P.PNPSI_ITS ---
Subjective Subjective Date of Service: 05/02/22 Reason For Visit: psychosis Subjective Notes: Conditional Voluntary Healthcare Proxy: No Guardianship: No Medical Problems Affecting Mental Status: No Interim History: Pt continues to report feeling improvement, less anxiety, less voices. Appears more relaxed. Clozapine decreased to 400 mg daily as clozapine level 1302 norclozapine 908. EKG ordered. Pt asymptomatic at this time. Medication Compliance: Yes Side effects from medications: No Attending Groups: Yes Review of Systems Acute medical concerns: No Medical Review of Systems: unchanged Mental Status Exam Mental Status Exam Patient Appearance: Appropriate Patient Orientation: Person, Place, Time and Situation Level of Consciousness: Alert Patient Behavior: Appropriate, Talkative, Cooperative and Good Eye Contact Mood Description: Appropriate Affect Description: Appropriate Patient Cognition Impaired: No Ability to Follow Directions: Good Speech Pattern: Spontaneous Speech Memory Description: Intact Hallucinations: Auditory (marked decrease) Thought Process: Intact Thought Content: positive for Intact Depressive Symptoms: Low Self Esteem Judgement: Good Diagnostics Vital Signs (24Hr): Vital Signs - 24 hr 05/01/22 18:00 05/02/22 09:16 Temperature 98.3 F 97.7 F Pulse Rate 106 H 86 Respiratory Rate 18 18 Blood Pressure 132/80 104/56 L Pulse Oximetry 98 98 Oxygen Delivery Method Room Air Room Air BMI result Body Mass Index 36.0 Labs 04/21/22 19:57 04/23/22 08:11 Labs: Laboratory Results - last 48 hr 04/27/22 18:43 Clozapine 1302 Norclozapine 908 H Medications Medications Current Medications Acetaminophen (Acetaminophen 325 Mg Tablet) 650 mg PO Q6H PRN PRN Reason: Headache/Pain Mild Scale (1-3) Last Admin: 04/23/22 21:48 Dose: 650 mg Al Hydroxide/Mg Hydroxide (Magnesium Hydrox/Alum Hydrox 30 Ml Oral.Susp) 30 ml PO Q6H PRN PRN Reason: Heartburn/Nausea Last Admin: 04/29/22 18:29 Dose: 30 ml Benztropine Mesylate (Benztropine Mesylate 1 Mg Tablet) 2 mg PO BID LISANDRA Last Admin: 05/02/22 09:12 Dose: 2 mg Clonidine HCl (Clonidine Hcl 0.1 Mg Tablet) 0.1 mg PO DAILY PRN; Protocol PRN Reason: anxiety Last Admin: 05/01/22 16:52 Dose: 0.1 mg Clonidine HCl (Clonidine Hcl 0.1 Mg Tablet) 0.1 mg PO BID@0900,1900 [facility]; Protocol Last Admin: 05/02/22 09:12 Dose: 0.1 mg Clozapine (Clozapine 100 Mg Tablet) 400 mg PO BEDTIME [facility] Docusate Sodium (Docusate Sodium 100 Mg Capsule) 100 mg PO BID [facility] Last Admin: 05/02/22 09:12 Dose: 100 mg Hydroxyzine HCl (Hydroxyzine Hcl 25 Mg Tablet) 25 mg PO Q6H PRN PRN Reason: Anxiety Last Admin: 04/29/22 13:47 Dose: 25 mg Lamotrigine (Lamotrigine 25 Mg Tablet) 25 mg PO BID [facility] Last Admin: 05/02/22 09:12 Dose: 25 mg Magnesium Hydroxide (Milk Of Magnesia 30 Ml Oral.Susp) 30 ml PO DAILY PRN PRN Reason: Constipation Melatonin (Melatonin 3 Mg Tablet) 9 mg PO BEDTIME [facility] Last Admin: 05/01/22 20:31 Dose: 9 mg Pharmacy Consult (Consult Rx Perform Med Rec) 1 each MISCELLANE ONCE PRN PRN Reason: Consult order Polyethylene Glycol (Polyethylene Glycol 3350 17 Gm Powd.Pack) 17 gm PO DAILY [facility] Last Admin: 05/02/22 09:15 Dose: Not Given Risperidone (Risperidone 1 Mg Tablet) 1 mg PO Q4H PRN PRN Reason: auditory hallucinations Last Admin: 04/29/22 21:17 Dose: 1 mg Risperidone (Risperidone 1 Mg Tablet) 1 mg PO BID [facility] Last Admin: 05/02/22 09:12 Dose: 1 mg Senna (Sennosides 8.6 Mg Tablet) 17.2 mg PO BEDTIME [facility] Last Admin: 05/01/22 20:30 Dose: 17.2 mg Trazodone HCl (Trazodone Hcl 100 Mg Tablet) 100 mg PO BEDTIME [facility] Last Admin: 05/01/22 20:30 Dose: 100 mg Trazodone HCl (Trazodone Hcl 50 Mg Tablet) 50 mg PO BEDTIME PRN PRN Reason: Insomnia Allergies Allergies Allergy/AdvReac Type Severity Reaction Status Date / Time haloperidol [From HALDOL] AdvReac Unknown EYES Verified 10/07/21 16:11 ROLLED BACK Assessment & Plan Assessment & Plan (1) Schizoaffective disorder, depressive type: Status: Acute Code(s): F25.1 - Schizoaffective disorder, depressive type (2) PTSD (post-traumatic stress disorder): Status: Acute Code(s): F43.10 - Post-traumatic stress disorder, unspecified Plan 37 yo female, known to our service, with reports of CAH to kill herself. Recent medication increases not effective, prn Risperdal continues with effect however shadow people are telling her this is a conspiracy and meds will make her feel out of her body. Discussed med effects-she reports they calm voices and numb her at times, offering relief. Also reports significant anxiety. 04/24/22: Change Clonidine to 0.1 mg HS and 0.1 mg daily prn anxiety. 04/25/22 continue tx. 04/26/2022 some small improvement but remains bothered by AH and SI; does not want medication increased at this time; continue current plan 04/27 continue current treatment plan; will get clozapine level 04/29/22 Bowel regime-colace, senna, miralax Increase clonidine to bid 0.1 mg 05/01/22 Continue current regime 05/02/22 Decrease clozapine to 400 mg daily. Monitor for SE as levels are high Plan: CV Q 15 minute checks Ordered clozapine level Continue current clozapine dose (recently increased about a week ago) Clindamycin 300 mg bid- 04/23-04/30 to address bacterial vaginosis Clonidine 0.1 mg bid to address anxiety Continue other regime meds as they were just increased Process concerns about mother in law. Patient educated on: medication risk/benefits and therapeutic strategies Informed Consent: understands and further education needed Reason for contiued inpatient stay Substantial Risk for: rapid decompensation Time Spent With Patient Time: Total time managing care of this patient today ____ minutes.
[2022-05-02 18:00] VITALS: BP 113/76; PULSE 93; RESP 18; TEMP 36.9; O2SAT 98
[2022-05-02] MEDS: Melatonin 3 MG TABLET 9 MG PO (21:29)
[2022-05-02] MEDS: Sennosides 8.6 MG TABLET 17.2 MG PO (21:29)
[2022-05-02] MEDS: traZODone HCL 100 MG TABLET PO (21:30)
[2022-05-02] MEDS: cloZAPine 100 MG TABLET 400 MG PO (21:31)
[2022-05-03] MEDS: lamoTRIgine 25 MG TABLET PO ×2 (08:51→21:50)
[2022-05-03] MEDS: Benztropine Mesylate 1 MG TABLET 2 MG PO ×2 (08:51→21:50)
[2022-05-03] MEDS: risperiDONE 1 MG TABLET PO ×2 (08:51→21:51)
[2022-05-03] MEDS: Docusate Sodium 100 MG CAPSULE PO ×2 (08:51→21:50)
[2022-05-03] MEDS: cloNIDine HCL 0.1 MG TABLET PO ×2 (08:51→18:40)
[2022-05-03 08:57] VITALS: BP 117/78; PULSE 86; RESP 16; TEMP 36.6; O2SAT 97
--- NOTE | 2022-05-03 16:49 | P.PNPSI_ITS ---
Subjective Subjective Date of Service: 05/03/22 Reason For Visit: psychosis Subjective Notes: Conditional Voluntary Medical Problems Affecting Mental Status: No Interim History: discussed with Nursing. Hallucinations appear less intense. Noted Clozaril dose lowered from 500 mg and 400 mg. Patient has been spending a lot of time in bed. Dump Motor Operator made multiple attempts to interview patient, but they were sleeping and declined interview when attempt to wake them. Medication Compliance: Yes Side effects from medications: No Attending Groups: No Review of Systems Acute medical concerns: No Review of Systems Review of Systems Yes Unobtainable due to mental status Mental Status Exam Mental Status Exam Narrative: In bed. Declined interview on waking. Diagnostics Vital Signs (24Hr): Vital Signs - 24 hr 05/02/22 18:00 05/03/22 08:57 Temperature 98.4 F 97.8 F Pulse Rate 93 86 Respiratory Rate 18 16 Blood Pressure 113/76 117/78 Pulse Oximetry 98 97 Oxygen Delivery Method Room Air Room Air BMI result Body Mass Index 36.0 Labs 04/21/22 19:57 04/23/22 08:11 Labs: Laboratory Results - last 48 hr 04/27/22 18:43 Clozapine 1302 Norclozapine 908 H Medications Medications Current Medications Acetaminophen (Acetaminophen 325 Mg Tablet) 650 mg PO Q6H PRN PRN Reason: Headache/Pain Mild Scale (1-3) Last Admin: 04/23/22 21:48 Dose: 650 mg Al Hydroxide/Mg Hydroxide (Magnesium Hydrox/Alum Hydrox 30 Ml Oral.Susp) 30 ml PO Q6H PRN PRN Reason: Heartburn/Nausea Last Admin: 04/29/22 18:29 Dose: 30 ml Benztropine Mesylate (Benztropine Mesylate 1 Mg Tablet) 2 mg PO BID [facility] Last Admin: 05/03/22 08:51 Dose: 2 mg Clonidine HCl (Clonidine Hcl 0.1 Mg Tablet) 0.1 mg PO DAILY PRN; Protocol PRN Reason: anxiety Last Admin: 05/01/22 16:52 Dose: 0.1 mg Clonidine HCl (Clonidine Hcl 0.1 Mg Tablet) 0.1 mg PO BID@0900,1900 [facility]; Protocol Last Admin: 05/03/22 08:51 Dose: 0.1 mg Clozapine (Clozapine 100 Mg Tablet) 400 mg PO BEDTIME [facility] Last Admin: 05/02/22 21:31 Dose: 400 mg Docusate Sodium (Docusate Sodium 100 Mg Capsule) 100 mg PO BID [facility] Last Admin: 05/03/22 08:51 Dose: 100 mg Hydroxyzine HCl (Hydroxyzine Hcl 25 Mg Tablet) 25 mg PO Q6H PRN PRN Reason: Anxiety Last Admin: 04/29/22 13:47 Dose: 25 mg Lamotrigine (Lamotrigine 25 Mg Tablet) 25 mg PO BID [facility] Last Admin: 05/03/22 08:51 Dose: 25 mg Magnesium Hydroxide (Milk Of Magnesia 30 Ml Oral.Susp) 30 ml PO DAILY PRN PRN Reason: Constipation Melatonin (Melatonin 3 Mg Tablet) 9 mg PO BEDTIME [facility] Last Admin: 05/02/22 21:29 Dose: 9 mg Pharmacy Consult (Consult Rx Perform Med Rec) 1 each MISCELLANE ONCE PRN PRN Reason: Consult order Polyethylene Glycol (Polyethylene Glycol 3350 17 Gm Powd.Pack) 17 gm PO DAILY S Last Admin: 05/03/22 08:52 Dose: Not Given Risperidone (Risperidone 1 Mg Tablet) 1 mg PO Q4H PRN PRN Reason: auditory hallucinations Last Admin: 04/29/22 21:17 Dose: 1 mg Risperidone (Risperidone 1 Mg Tablet) 1 mg PO BID [facility] Last Admin: 05/03/22 08:51 Dose: 1 mg Senna (Sennosides 8.6 Mg Tablet) 17.2 mg PO BEDTIME [facility] Last Admin: 05/02/22 21:29 Dose: 17.2 mg Trazodone HCl (Trazodone Hcl 100 Mg Tablet) 100 mg PO BEDTIME [facility] Last Admin: 05/02/22 21:30 Dose: 100 mg Trazodone HCl (Trazodone Hcl 50 Mg Tablet) 50 mg PO BEDTIME PRN PRN Reason: Insomnia Allergies Allergies Allergy/AdvReac Type Severity Reaction Status Date / Time haloperidol [From HALDOL] AdvReac Unknown EYES Verified 10/07/21 16:11 ROLLED BACK Assessment & Plan Assessment & Plan (1) Schizoaffective disorder, depressive type: Status: Acute Code(s): F25.1 - Schizoaffective disorder, depressive type (2) PTSD (post-traumatic stress disorder): Status: Acute Code(s): F43.10 - Post-traumatic stress disorder, unspecified Plan 37 yo female, known to our service, with reports of CAH to kill herself. Recent medication increases not effective, prn Risperdal continues with effect however shadow people are telling her this is a conspiracy and meds will make her feel out of her body. Discussed med effects-she reports they calm voices and numb her at times, offering relief. Also reports significant anxiety. 04/24/22: Change Clonidine to 0.1 mg HS and 0.1 mg daily prn anxiety. 04/25/22 continue tx. 04/26/2022 some small improvement but remains bothered by AH and SI; does not want medication increased at this time; continue current plan 04/27 continue current treatment plan; will get clozapine level 04/29/22 Bowel regime-colace, senna, miralax Increase clonidine to bid 0.1 mg 05/01/22 Continue current regime 05/02/22 Decrease clozapine to 400 mg daily. Monitor for SE as levels are high 05/03/22: Noted recent decrease of clozapine dosing. Will continue to monitor Plan: CV Q 15 minute checks Ordered clozapine level Continue current clozapine dose (recently increased about a week ago) Clindamycin 300 mg bid- 04/23-04/30 to address bacterial vaginosis Clonidine 0.1 mg bid to address anxiety Continue other regime meds as they were just increased Process concerns about mother in law. Reason for contiued inpatient stay Substantial Risk for: rapid decompensation Time Spent With Patient Time: Total time managing care of this patient today ____ minutes.
[2022-05-03 18:41] VITALS: BP 118/78
[2022-05-03 21:00] VITALS: BP 109/73; PULSE 86; TEMP 36.7
[2022-05-03] MEDS: Melatonin 3 MG TABLET 9 MG PO (21:49)
[2022-05-03] MEDS: Sennosides 8.6 MG TABLET 17.2 MG PO (21:50)
[2022-05-03] MEDS: traZODone HCL 100 MG TABLET PO (21:51)
[2022-05-03] MEDS: cloZAPine 100 MG TABLET 400 MG PO (21:51)
[2022-05-04 09:55] VITALS: BP 129/77; PULSE 88; RESP 14; TEMP 36.1; O2SAT 98
[2022-05-04] MEDS: Benztropine Mesylate 1 MG TABLET 2 MG PO ×2 (09:59→21:30)
[2022-05-04] MEDS: lamoTRIgine 25 MG TABLET PO ×2 (09:59→21:30)
[2022-05-04] MEDS: Docusate Sodium 100 MG CAPSULE PO ×2 (10:00→21:30)
[2022-05-04] MEDS: risperiDONE 1 MG TABLET PO ×4 (10:01→21:30)
[2022-05-04] MEDS: cloNIDine HCL 0.1 MG TABLET PO ×2 (10:01→19:14)
--- NOTE | 2022-05-04 17:22 | HO.PSYCHPN ---
Subjective Subjective Date of Service: 05/04/22 Reason For Visit: psychosis Interim History: Overall patient reports hallucinations are slightly less intense. Denies feeling over-sedated. S however spending a lot of time in her room napping during the daytime. Denies feeling depressed. Denied SI. Medication Compliance: Yes Side effects from medications: No Attending Groups: No Review of Systems Acute medical concerns: No Review of Systems Review of Systems Unremarkable Mental Status Exam Mental Status Exam Narrative: in bed. Hospital clothing. Self-care okay. Alert and oriented on wakening. Denied depression. Affect flat. Denied SI or HI. Did report hallucinations were less intense. Feels safe. Insight judgment fair Diagnostics Vital Signs (24Hr): Vital Signs - 24 hr 05/03/22 18:41 05/03/22 21:00 05/04/22 09:55 Temperature 98.1 F 97.0 F Pulse Rate 86 88 Respiratory Rate 14 Blood Pressure 118/78 109/73 129/77 Pulse Oximetry 98 Oxygen Delivery Method Room Air BMI result Body Mass Index 36.0 Labs 04/21/22 19:57 04/23/22 08:11 Medications Medications Current Medications Acetaminophen (Acetaminophen 325 Mg Tablet) 650 mg PO Q6H PRN PRN Reason: Headache/Pain Mild Scale (1-3) Last Admin: 04/23/22 21:48 Dose: 650 mg Al Hydroxide/Mg Hydroxide (Magnesium Hydrox/Alum Hydrox 30 Ml Oral.Susp) 30 ml PO Q6H PRN PRN Reason: Heartburn/Nausea Last Admin: 04/29/22 18:29 Dose: 30 ml Benztropine Mesylate (Benztropine Mesylate 1 Mg Tablet) 2 mg PO BID [facility] Last Admin: 05/04/22 09:59 Dose: 2 mg Clonidine HCl (Clonidine Hcl 0.1 Mg Tablet) 0.1 mg PO DAILY PRN; Protocol PRN Reason: anxiety Last Admin: 05/01/22 16:52 Dose: 0.1 mg Clonidine HCl (Clonidine Hcl 0.1 Mg Tablet) 0.1 mg PO BID@0900,1900 [facility]; Protocol Last Admin: 05/04/22 10:01 Dose: 0.1 mg Clozapine (Clozapine 100 Mg Tablet) 400 mg PO BEDTIME [facility] Last Admin: 05/03/22 21:51 Dose: 400 mg Docusate Sodium (Docusate Sodium 100 Mg Capsule) 100 mg PO BID [facility] Last Admin: 05/04/22 10:00 Dose: 100 mg Hydroxyzine HCl (Hydroxyzine Hcl 25 Mg Tablet) 25 mg PO Q6H PRN PRN Reason: Anxiety Last Admin: 04/29/22 13:47 Dose: 25 mg Lamotrigine (Lamotrigine 25 Mg Tablet) 25 mg PO BID [facility] Last Admin: 05/04/22 09:59 Dose: 25 mg Magnesium Hydroxide (Milk Of Magnesia 30 Ml Oral.Susp) 30 ml PO DAILY PRN PRN Reason: Constipation Melatonin (Melatonin 3 Mg Tablet) 9 mg PO BEDTIME [facility] Last Admin: 05/03/22 21:49 Dose: 9 mg Pharmacy Consult (Consult Rx Perform Med Rec) 1 each MISCELLANE ONCE PRN PRN Reason: Consult order Polyethylene Glycol (Polyethylene Glycol 3350 17 Gm Powd.Pack) 17 gm PO DAILY [facility] Last Admin: 05/04/22 10:03 Dose: Not Given Risperidone (Risperidone 1 Mg Tablet) 1 mg PO Q4H PRN PRN Reason: auditory hallucinations Last Admin: 05/04/22 14:27 Dose: 1 mg Risperidone (Risperidone 1 Mg Tablet) 1 mg PO BID [facility] Last Admin: 05/04/22 10:01 Dose: 1 mg Senna (Sennosides 8.6 Mg Tablet) 17.2 mg PO BEDTIME [facility] Last Admin: 05/03/22 21:50 Dose: 17.2 mg Trazodone HCl (Trazodone Hcl 100 Mg Tablet) 100 mg PO BEDTIME [facility] Last Admin: 05/03/22 21:51 Dose: 100 mg Trazodone HCl (Trazodone Hcl 50 Mg Tablet) 50 mg PO BEDTIME PRN PRN Reason: Insomnia Allergies Allergies Allergy/AdvReac Type Severity Reaction Status Date / Time haloperidol [From HALDOL] AdvReac Unknown EYES Verified 10/07/21 16:11 ROLLED BACK Assessment & Plan Assessment & Plan (1) Schizoaffective disorder, depressive type: Status: Acute Code(s): F25.1 - Schizoaffective disorder, depressive type (2) PTSD (post-traumatic stress disorder): Status: Acute Code(s): F43.10 - Post-traumatic stress disorder, unspecified Plan 37 yo female, known to our service, with reports of CAH to kill herself. Recent medication increases not effective, prn Risperdal continues with effect however shadow people are telling her this is a conspiracy and meds will make her feel out of her body. Discussed med effects-she reports they calm voices and numb her at times, offering relief. Also reports significant anxiety. 04/24/22: Change Clonidine to 0.1 mg HS and 0.1 mg daily prn anxiety. 04/25/22 continue tx. 04/26/2022 some small improvement but remains bothered by AH and SI; does not want medication increased at this time; continue current plan 04/27 continue current treatment plan; will get clozapine level 04/29/22 Bowel regime-colace, senna, miralax Increase clonidine to bid 0.1 mg 05/01/22 Continue current regime 05/02/22 Decrease clozapine to 400 mg daily. Monitor for SE as levels are high 05/04/22: Noted recent decrease of clozapine dosing. Will continue to monitor Plan: CV Q 15 minute checks Ordered clozapine level Continue current clozapine dose (recently increased about a week ago) Clindamycin 300 mg bid- 04/23-04/30 to address bacterial vaginosis Clonidine 0.1 mg bid to address anxiety Continue other regime meds as they were just increased Process concerns about mother in law. Reason for contiued inpatient stay Substantial Risk for: inability to function Time Spent With Patient Time: Total time managing care of this patient today ____ minutes.
[2022-05-04 19:26] VITALS: BP 129/76; PULSE 76; RESP 16; TEMP 36.8; O2SAT 96
[2022-05-04] MEDS: cloZAPine 100 MG TABLET 400 MG PO (21:29)
[2022-05-04] MEDS: Sennosides 8.6 MG TABLET 17.2 MG PO (21:30)
[2022-05-04] MEDS: traZODone HCL 100 MG TABLET PO (21:30)
[2022-05-04] MEDS: Melatonin 3 MG TABLET 9 MG PO (21:30)
--- NOTE | 2022-05-04 21:37 | PC.NURSE ---
pt came to nurse to report command AH telling her to hurt herself and she had the urge to punch herself in the head. pt advocated for self by coming to nurse and asking for prn medications to help with AH instead of acting upon command AH.
--- NOTE | 2022-05-05 | ECG_ITS ---
Test Reason : high med level Blood Pressure : / mmHG Vent. Rate : 092 BPM Atrial Rate : 092 BPM P-R Int : 132 ms QRS Dur : 084 ms QT Int : 320 ms P-R-T Axes : 055 -01 023 degrees QTc Int : 395 ms Normal sinus rhythm Minimal voltage criteria for LVH, may be normal variant ( R in aVL ) Nonspecific T wave abnormality Abnormal ECG When compared with ECG of 22-APR-2022 14:05, QT has shortened Referred By: Iram Adan Electronically Signed By:LEANNA TAI MD
[2022-05-05] MEDS: lamoTRIgine 25 MG TABLET PO ×2 (08:18→21:50)
[2022-05-05] MEDS: Benztropine Mesylate 1 MG TABLET 2 MG PO ×2 (08:18→21:53)
[2022-05-05] MEDS: risperiDONE 1 MG TABLET PO ×3 (08:19→22:57)
[2022-05-05] MEDS: Docusate Sodium 100 MG CAPSULE PO ×2 (08:19→21:42)
[2022-05-05] MEDS: cloNIDine HCL 0.1 MG TABLET PO ×2 (10:55→18:39)
[2022-05-05 11:23] VITALS: BP 116/69; BP 95/54; PULSE 80; RESP 14; TEMP 36.6; O2SAT 100
[2022-05-05 16:25] VITALS: BP 120/79; PULSE 92; TEMP 36.8; O2SAT 97
--- NOTE | 2022-05-05 16:41 | P.PNPSI_ITS ---
Subjective Subjective Date of Service: 05/05/22 Reason For Visit: psychosis Subjective Notes: Conditional Voluntary Healthcare Proxy: No Guardianship: No Medical Problems Affecting Mental Status: No Interim History: Sx increase per pt report. Asks, why do you bother, you know, we are all going to anyway. Discussion with pt. Anxiety has increased when she thinks about going home. Shadow people and voices are present, providing these ideas and concepts. She reports the weekend was boring-family visited on Thursday. Medication Compliance: Yes Side effects from medications: No Attending Groups: Yes Review of Systems Acute medical concerns: No EKG QT 320 from 346 on 04/22/22. QTC 395 Medical Review of Systems: unchanged Mental Status Exam Mental Status Exam Patient Appearance: Appropriate Patient Orientation: Person, Place, Time and Situation Level of Consciousness: Alert Patient Behavior: Appropriate, Talkative, Cooperative and Good Eye Contact Mood Description: Depressed, Anxious and Angry Affect Description: Flat Patient Cognition Impaired: No Ability to Follow Directions: Good Speech Pattern: Spontaneous Speech Memory Description: Intact Hallucinations: Auditory (marked decrease) and Visual Delusions: Paranoid Ideation Perceptual Disturbances: Depersonalization and Derealization Thought Process: Intact Thought Content: positive for [place] and positive for Perseveration Depressive Symptoms: Increased Anxiety, Increased Irritability and Low Self Rose em Abnormal Motor Activity Signs and Symptoms: Agitation Judgement: Fair Diagnostics Vital Signs (24Hr): Vital Signs - 24 hr 05/04/22 19:26 05/05/22 11:23 05/05/22 11:23 Temperature 98.2 F 97.9 F Pulse Rate 76 80 Respiratory Rate 16 14 Blood Pressure 129/76 95/54 L 116/69 Pulse Oximetry 96 100 Oxygen Delivery Method Room Air Room Air 05/05/22 16:25 Temperature 98.3 F Pulse Rate 92 Respiratory Rate Blood Pressure 120/79 Pulse Oximetry 97 Oxygen Delivery Method Room Air BMI result Body Mass Index 36.0 Labs 04/21/22 19:57 04/23/22 08:11 Medications Medications Current Medications Acetaminophen (Acetaminophen 325 Mg Tablet) 650 mg PO Q6H PRN PRN Reason: Headache/Pain Mild Scale (1-3) Last Admin: 04/23/22 21:48 Dose: 650 mg Al Hydroxide/Mg Hydroxide (Magnesium Hydrox/Alum Hydrox 30 Ml Oral.Susp) 30 ml PO Q6H PRN PRN Reason: Heartburn/Nausea Last Admin: 04/29/22 18:29 Dose: 30 ml Benztropine Mesylate (Benztropine Mesylate 1 Mg Tablet) 2 mg PO BID [facility] Last Admin: 05/05/22 08:18 Dose: 2 mg Clonidine HCl (Clonidine Hcl 0.1 Mg Tablet) 0.1 mg PO DAILY PRN; Protocol PRN Reason: anxiety Last Admin: 05/01/22 16:52 Dose: 0.1 mg Clonidine HCl (Clonidine Hcl 0.1 Mg Tablet) 0.1 mg PO BID@0900,1900 [facility]; Protocol Last Admin: 05/05/22 10:55 Dose: 0.1 mg Clozapine (Clozapine 100 Mg Tablet) 400 mg PO BEDTIME [facility] Clozapine (Clozapine 25 Mg Tablet) 25 mg PO BEDTIME [facility] Docusate Sodium (Docusate Sodium 100 Mg Capsule) 100 mg PO BID [facility] Last Admin: 05/05/22 08:19 Dose: 100 mg Hydroxyzine HCl (Hydroxyzine Hcl 25 Mg Tablet) 25 mg PO Q6H PRN PRN Reason: Anxiety Last Admin: 04/29/22 13:47 Dose: 25 mg Lamotrigine (Lamotrigine 25 Mg Tablet) 25 mg PO BID [facility] Last Admin: 05/05/22 08:18 Dose: 25 mg Magnesium Hydroxide (Milk Of Magnesia 30 Ml Oral.Susp) 30 ml PO DAILY PRN PRN Reason: Constipation Melatonin (Melatonin 3 Mg Tablet) 9 mg PO BEDTIME [facility] Last Admin: 05/04/22 21:30 Dose: 9 mg Pharmacy Consult (Consult Rx Perform Med Rec) 1 each MISCELLANE ONCE PRN PRN Reason: Consult order Polyethylene Glycol (Polyethylene Glycol 3350 17 Gm Powd.Pack) 17 gm PO DAILY [facility] Last Admin: 05/05/22 08:21 Dose: Not Given Risperidone (Risperidone 1 Mg Tablet) 1 mg PO Q4H PRN PRN Reason: auditory hallucinations Last Admin: 05/05/22 16:26 Dose: 1 mg Risperidone (Risperidone 1 Mg Tablet) 1 mg PO BID [facility] Last Admin: 05/05/22 08:19 Dose: 1 mg Senna (Sennosides 8.6 Mg Tablet) 17.2 mg PO BEDTIME [facility] Last Admin: 05/04/22 21:30 Dose: 17.2 mg Trazodone HCl (Trazodone Hcl 100 Mg Tablet) 100 mg PO BEDTIME [facility] Last Admin: 05/04/22 21:30 Dose: 100 mg Trazodone HCl (Trazodone Hcl 50 Mg Tablet) 50 mg PO BEDTIME PRN PRN Reason: Insomnia Allergies Allergies Allergy/AdvReac Type Severity Reaction Status Date / Time haloperidol [From HALDOL] AdvReac Unknown EYES Verified 10/07/21 16:11 ROLLED BACK Assessment & Plan Assessment & Plan (1) Schizoaffective disorder, depressive type: Status: Acute Code(s): F25.1 - Schizoaffective disorder, depressive type (2) PTSD (post-traumatic stress disorder): Status: Acute Code(s): F43.10 - Post-traumatic stress disorder, unspecified Plan 37 yo female, known to our service, with reports of CAH to kill herself. Recent medication increases not effective, prn Risperdal continues with effect however shadow people are telling her this is a conspiracy and meds will make her feel out of her body. Discussed med effects-she reports they calm voices and numb her at times, offering relief. Also reports significant anxiety. 04/24/22: Change Clonidine to 0.1 mg HS and 0.1 mg daily prn anxiety. 04/25/22 continue tx. 04/26/2022 some small improvement but remains bothered by AH and SI; does not want medication increased at this time; continue current plan 04/27 continue current treatment plan; will get clozapine level 04/29/22 Bowel regime-colace, senna, miralax Increase clonidine to bid 0.1 mg 05/01/22 Continue current regime 05/02/22 Decrease clozapine to 400 mg daily. Monitor for SE as levels are high 05/04/22: Noted recent decrease of clozapine dosing. Will continue to monitor 05/05/22: Sx breakthrough with decrease Clozapine. Discussed with pt. Increase Clozapine to 425 mg Plan: CV Q 15 minute checks Ordered clozapine level Continue current clozapine dose (recently increased about a week ago) Clindamycin 300 mg bid- 04/23-04/30 to address bacterial vaginosis Clonidine 0.1 mg bid to address anxiety Continue other regime meds as they were just increased Process concerns about mother in law. Patient educated on: medication risk/benefits and therapeutic strategies Informed Consent: understands and further education needed Reason for contiued inpatient stay Substantial Risk for: harm to self and rapid decompensation Time Spent With Patient Time: Total time managing care of this patient today ____ minutes.
[2022-05-05 18:35] VITALS: BP 140/89; PULSE 101
[2022-05-05] MEDS: cloZAPine 100 MG TABLET 400 MG PO (21:43)
[2022-05-05] MEDS: cloZAPine 25 MG TABLET PO (21:43)
[2022-05-05] MEDS: Sennosides 8.6 MG TABLET 17.2 MG PO (21:49)
[2022-05-05] MEDS: traZODone HCL 100 MG TABLET PO (21:50)
[2022-05-05] MEDS: Melatonin 3 MG TABLET 9 MG PO (21:52)
[2022-05-06 06:00] VITALS: BP 131/80; PULSE 94; RESP 14; TEMP 36.3
[2022-05-06 08:55] LABS: Neut%MD 48.4 %; Neutrophils Absolute Auto 3.8 x10*3/uL (2.0-8.3); WBCANC 7.8 X10*3/uL
[2022-05-06] MEDS: Docusate Sodium 100 MG CAPSULE PO ×2 (09:34→21:33)
[2022-05-06] MEDS: Benztropine Mesylate 1 MG TABLET 2 MG PO ×2 (09:34→21:32)
[2022-05-06] MEDS: lamoTRIgine 25 MG TABLET PO ×2 (09:34→21:34)
[2022-05-06] MEDS: cloNIDine HCL 0.1 MG TABLET PO ×2 (09:37→21:31)
[2022-05-06] MEDS: risperiDONE 1 MG TABLET PO ×3 (09:41→17:28)
--- NOTE | 2022-05-06 16:24 | P.PNPSI_ITS ---
Subjective Subjective Date of Service: 05/06/22 Reason For Visit: psychosis Subjective Notes: Conditional Voluntary Healthcare Proxy: No Guardianship: No Medical Problems Affecting Mental Status: No Interim History: Asked by team to make a room change- it increases my paranoia Discussed presence of shadow people, paranoia, voices, fears of leaving the hospital, agoraphobia when at home. Discussed difficulty swallowing meds at times, drooling which she has decided not to medicate with her OP team. Review of options-she will consider. Review of medications with Days[place] as well. Medication Compliance: Yes Side effects from medications: Yes (as noted) Attending Groups: Intermittent Review of Systems Acute medical concerns: No Medical Review of Systems: unchanged Mental Status Exam Mental Status Exam Patient Appearance: Appropriate Patient Orientation: Person, Place, Time and Situation Level of Consciousness: Alert Patient Behavior: Appropriate, Talkative, Cooperative and Good Eye Contact Mood Description: Depressed and Anxious Affect Description: Flat Patient Cognition Impaired: No Ability to Follow Directions: Good Speech Pattern: Spontaneous Speech Memory Description: Intact Hallucinations: Auditory and Visual Delusions: Paranoid Ideation Perceptual Disturbances: Depersonalization and Derealization Thought Process: Intact Thought Content: positive for [place] and positive for Persever[place] Depressive Symptoms: Increased Anxiety, Increased Irritability and Low Self Esteem Abnormal Motor Activity Signs and Symptoms: Agitation Judgement: Fair Diagnostics Vital Signs (24Hr): Vital Signs - 24 hr 05/05/22 16:25 05/05/22 18:35 05/06/22 06:00 Temperature 98.3 F 97.3 F Pulse Rate 92 101 H 94 Respiratory Rate 14 Blood Pressure 120/79 140/89 H 131/80 Pulse Oximetry 97 Oxygen Delivery Method Room Air BMI result Body Mass Index 36.0 Labs 04/21/22 19:57 04/23/22 08:11 Labs: Laboratory Results - last 48 hr 05/06/22 08:14 Absolute Neuts (auto) 3.8 Medications Medications Current Medications Acetaminophen (Acetaminophen 325 Mg Tablet) 650 mg PO Q6H PRN PRN Reason: Headache/Pain Mild Scale (1-3) Last Admin: 04/23/22 21:48 Dose: 650 mg Al Hydroxide/Mg Hydroxide (Magnesium Hydrox/Alum Hydrox 30 Ml Oral.Susp) 30 ml PO Q6H PRN PRN Reason: Heartburn/Nausea Last Admin: 04/29/22 18:29 Dose: 30 ml Benztropine Mesylate (Benztropine Mesylate 1 Mg Tablet) 2 mg PO BID [facility] Last Admin: 05/06/22 09:34 Dose: 2 mg Clonidine HCl (Clonidine Hcl 0.1 Mg Tablet) 0.1 mg PO DAILY PRN; Protocol PRN Reason: anxiety Last Admin: 05/01/22 16:52 Dose: 0.1 mg Clonidine HCl (Clonidine Hcl 0.1 Mg Tablet) 0.1 mg PO BID@0900,1900 [facility]; Protocol Last Admin: 05/06/22 09:37 Dose: 0.1 mg Clozapine (Clozapine 100 Mg Tablet) 400 mg PO BEDTIME [facility] Last Admin: 05/05/22 21:43 Dose: 400 mg Clozapine (Clozapine 25 Mg Tablet) 25 mg PO BEDTIME [facility] Last Admin: 05/05/22 21:43 Dose: 25 mg Docusate Sodium (Docusate Sodium 100 Mg Capsule) 100 mg PO BID [facility] Last Admin: 05/06/22 09:34 Dose: 100 mg Hydroxyzine HCl (Hydroxyzine Hcl 25 Mg Tablet) 25 mg PO Q6H PRN PRN Reason: Anxiety Last Admin: 04/29/22 13:47 Dose: 25 mg Lamotrigine (Lamotrigine 25 Mg Tablet) 25 mg PO BID [facility] Last Admin: 05/06/22 09:34 Dose: 25 mg Magnesium Hydroxide (Milk Of Magnesia 30 Ml Oral.Susp) 30 ml PO DAILY PRN PRN Reason: Constipation Melatonin (Melatonin 3 Mg Tablet) 9 mg PO BEDTIME [facility] Last Admin: 05/05/22 21:52 Dose: 9 mg Pharmacy Consult (Consult Rx Perform Med Rec) 1 each MISCELLANE ONCE PRN PRN Reason: Consult order Polyethylene Glycol (Polyethylene Glycol 3350 17 Gm Powd.Pack) 17 gm PO DAILY [facility] Last Admin: 05/06/22 10:04 Dose: Not Given Risperidone (Risperidone 1 Mg Tablet) 1 mg PO Q4H PRN PRN Reason: auditory hallucinations Last Admin: 05/06/22 13:15 Dose: 1 mg Risperidone (Risperidone 0.5 Mg Tablet) 0.5 mg PO BID [facility] Senna (Sennosides 8.6 Mg Tablet) 17.2 mg PO BEDTIME [facility] Last Admin: 05/05/22 21:49 Dose: 17.2 mg Trazodone HCl (Trazodone Hcl 100 Mg Tablet) 100 mg PO BEDTIME [facility] Last Admin: 05/05/22 21:50 Dose: 100 mg Trazodone HCl (Trazodone Hcl 50 Mg Tablet) 50 mg PO BEDTIME PRN PRN Reason: Insomnia Allergies Allergies Allergy/AdvReac Type Severity Reaction Status Date / Time haloperidol [From HALDOL] AdvReac Unknown EYES Verified 10/07/21 16:11 ROLLED BACK Assessment & Plan Assessment & Plan (1) Schizoaffective disorder, depressive type: Status: Acute Code(s): F25.1 - Schizoaffective disorder, depressive type (2) PTSD (post-traumatic stress disorder): Status: Acute Code(s): F43.10 - Post-traumatic stress disorder, unspecified Plan 37 yo female, known to our service, with reports of CAH to kill herself. Recent medication increases not effective, prn Risperdal continues with effect however shadow people are telling her this is a conspiracy and meds will make her feel out of her body. Discussed med effects-she reports they calm voices and numb her at times, offering relief. Also reports significant anxiety. 04/24/22: Change Clonidine to 0.1 mg HS and 0.1 mg daily prn anxiety. 04/25/22 continue tx. 04/26/2022 some small improvement but remains bothered by AH and SI; does not want medication increased at this time; continue current plan 04/27 continue current treatment plan; will get clozapine level 04/29/22 Bowel regime-colace, senna, miralax Increase clonidine to bid 0.1 mg 05/01/22 Continue current regime 05/02/22 Decrease clozapine to 400 mg daily. Monitor for SE as levels are high 05/04/22: Noted recent decrease of clozapine dosing. Will continue to monitor 05/05/22: Sx breakthrough with decrease Clozapine. Discussed with pt. Increase Clozapine to 425 mg 05/06/22: Continue current plan Plan: CV Q 15 minute checks Ordered clozapine level Continue current clozapine dose (recently increased about a week ago) Clindamycin 300 mg bid- 04/23-04/30 to address bacterial vaginosis Clonidine 0.1 mg bid to address anxiety Continue other regime meds as they were just increased Process concerns about mother in law. Patient educated on: medication risk/benefits and therapeutic strategies Informed Consent: understands and further education needed Reason for contiued inpatient stay Substantial Risk for: rapid decompensation Time Spent With Patient Time: Total time managing care of this patient today ____ minutes.
[2022-05-06 18:00] VITALS: BP 118/72; PULSE 90; RESP 18; TEMP 36.8; O2SAT 97
[2022-05-06] MEDS: cloZAPine 100 MG TABLET 400 MG PO (21:33)
[2022-05-06] MEDS: cloZAPine 25 MG TABLET PO (21:33)
[2022-05-06] MEDS: risperiDONE 0.5 MG TABLET PO (21:34)
[2022-05-06] MEDS: Sennosides 8.6 MG TABLET 17.2 MG PO (21:34)
[2022-05-06] MEDS: Melatonin 3 MG TABLET 9 MG PO (21:34)
[2022-05-06] MEDS: traZODone HCL 50 MG TABLET PO (21:34)
[2022-05-06] MEDS: traZODone HCL 100 MG TABLET PO (21:35)
[2022-05-07 09:25] VITALS: BP 124/60; PULSE 89; RESP 14; TEMP 36.3
[2022-05-07] MEDS: lamoTRIgine 25 MG TABLET PO ×2 (09:26→21:44)
[2022-05-07] MEDS: risperiDONE 0.5 MG TABLET PO ×2 (09:26→21:43)
[2022-05-07] MEDS: Docusate Sodium 100 MG CAPSULE PO ×2 (09:26→21:44)
[2022-05-07] MEDS: Benztropine Mesylate 1 MG TABLET 2 MG PO ×2 (09:26→21:45)
[2022-05-07] MEDS: cloNIDine HCL 0.1 MG TABLET PO ×2 (09:33→19:41)
[2022-05-07] MEDS: risperiDONE 1 MG TABLET PO (15:44)
--- NOTE | 2022-05-07 17:59 | P.PNPSI_ITS ---
Subjective Subjective Date of Service: 05/07/22 Reason For Visit: psychosis Subjective Notes: Conditional Voluntary Healthcare Proxy: No Guardianship: No Medical Problems Affecting Mental Status: No Interim History: How will I be able to do this family trip in August? I [place] need [place], get on a plane then get on a ship. I don't think I can. I want to be happy again-see my friends, go to a restaurant, take the kids to [employer], return to work. A day pt describes with increase in sx of paranoia, despair. Last week, with Clozapine at 500 mg, Risperdal 1 mg bid and Clonidine 0.1 mg bid she does recall feeling good with minimal anxiety. Consulted with Dr. Thomas about clozapine levels, diagnostic variations and options. He will review. She is in agreement. Discussed discharge for Thursday- what if I am not ready to go . Fears shadow people meddling in her life and in others lives as well. Medication Compliance: Yes Side effects from medications: No Attending Groups: Yes Review of Systems Acute medical concerns: No Medical Review of Systems: unchanged Mental Status Exam Mental Status Exam Patient Appearance: Appropriate Patient Orientation: Person, Place, Time and Situation Level of Consciousness: Alert Patient Behavior: Appropriate, Talkative, Cooperative and Good Eye Contact Mood Description: Depressed and Anxious Affect Description: Flat Patient Cognition Impaired: No Ability to Follow Directions: Good Speech Pattern: Spontaneous Speech Memory Description: Intact Hallucinations: Auditory and Visual Delusions: Paranoid Ideation Perceptual Disturbances: Depersonalization and Derealization Thought Process: Intact Thought Content: positive for [place] and positive for [place] Depressive Symptoms: Increased Anxiety, Increased Irritability and Low Self Esteem Abnormal Motor Activity Signs and Symptoms: Agitation Judgement: Fair Diagnostics Vital Signs (24Hr): Vital Signs - 24 hr 05/06/22 18:00 05/07/22 09:25 Temperature 98.2 F 97.4 F Pulse Rate 90 89 Respiratory Rate 18 14 Blood Pressure 118/72 124/60 Pulse Oximetry 97 Oxygen Delivery Method Room Air BMI result Body Mass Index 36.0 Labs 04/21/22 19:57 04/23/22 08:11 Labs: Laboratory Results - last 48 hr 05/06/22 08:14 Absolute Neuts (auto) 3.8 Medications Medications Current Medications Acetaminophen (Acetaminophen 325 Mg Tablet) 650 mg PO Q6H PRN PRN Reason: Headache/Pain Mild Scale (1-3) Last Admin: 04/23/22 21:48 Dose: 650 mg Al Hydroxide/Mg Hydroxide (Magnesium Hydrox/Alum Hydrox 30 Ml Oral.Susp) 30 ml PO Q6H PRN PRN Reason: Heartburn/Nausea Last Admin: 04/29/22 18:29 Dose: 30 ml Benztropine Mesylate (Benztropine Mesylate 1 Mg Tablet) 2 mg PO BID [facility] Last Admin: 05/07/22 09:26 Dose: 2 mg Clonidine HCl (Clonidine Hcl 0.1 Mg Tablet) 0.1 mg PO DAILY PRN; Protocol PRN Reason: anxiety Last Admin: 05/01/22 16:52 Dose: 0.1 mg Clonidine HCl (Clonidine Hcl 0.1 Mg Tablet) 0.1 mg PO BID@0900,1900 [facility]; Protocol Last Admin: 05/07/22 09:33 Dose: 0.1 mg Clozapine (Clozapine 100 Mg Tablet) 400 mg PO BEDTIME [facility] Last Admin: 05/06/22 21:33 Dose: 400 mg Clozapine (Clozapine 25 Mg Tablet) 25 mg PO BEDTIME [facility] Last Admin: 05/06/22 21:33 Dose: 25 mg Docusate Sodium (Docusate Sodium 100 Mg Capsule) 100 mg PO BID [facility] Last Admin: 05/07/22 09:26 Dose: 100 mg Hydroxyzine HCl (Hydroxyzine Hcl 25 Mg Tablet) 25 mg PO Q6H PRN PRN Reason: Anxiety Last Admin: 04/29/22 13:47 Dose: 25 mg Lamotrigine (Lamotrigine 25 Mg Tablet) 25 mg PO BID [facility] Last Admin: 05/07/22 09:26 Dose: 25 mg Magnesium Hydroxide (Milk Of Magnesia 30 Ml Oral.Susp) 30 ml PO DAILY PRN PRN Reason: Constipation Melatonin (Melatonin 3 Mg Tablet) 9 mg PO BEDTIME [facility] Last Admin: 05/06/22 21:34 Dose: 9 mg Pharmacy Consult (Consult Rx Perform Med Rec) 1 each MISCELLANE ONCE PRN PRN Reason: Consult order Polyethylene Glycol (Polyethylene Glycol 3350 17 Gm Powd.Pack) 17 gm PO DAILY [facility] Last Admin: 05/07/22 09:36 Dose: Not Given Risperidone (Risperidone 1 Mg Tablet) 1 mg PO Q4H PRN PRN Reason: auditory hallucinations Last Admin: 05/07/22 15:44 Dose: 1 mg Risperidone (Risperidone 0.5 Mg Tablet) 0.5 mg PO BID [facility] Last Admin: 05/07/22 09:26 Dose: 0.5 mg Senna (Sennosides 8.6 Mg Tablet) 17.2 mg PO BEDTIME [facility] Last Admin: 05/06/22 21:34 Dose: 17.2 mg Trazodone HCl (Trazodone Hcl 100 Mg Tablet) 100 mg PO BEDTIME [facility] Last Admin: 05/06/22 21:35 Dose: 100 mg Trazodone HCl (Trazodone Hcl 50 Mg Tablet) 50 mg PO BEDTIME PRN PRN Reason: Insomnia Last Admin: 05/06/22 21:34 Dose: 50 mg Allergies Allergies Allergy/AdvReac Type Severity Reaction Status Date / Time haloperidol [From HALDOL] AdvReac Unknown EYES Verified 10/07/21 16:11 ROLLED BACK Assessment & Plan Assessment & Plan (1) Schizoaffective disorder, depressive type: Status: Acute Code(s): F25.1 - Schizoaffective disorder, depressive type (2) PTSD (post-traumatic stress disorder): Status: Acute Code(s): F43.10 - Post-traumatic stress disorder, unspecified Plan 37 yo female, known to our service, with reports of CAH to kill herself. Recent medication increases not effective, prn Risperdal continues with effect however shadow people are telling her this is a conspiracy and meds will make her feel out of her body. Discussed med effects-she reports they calm voices and numb her at times, offering relief. Also reports significant anxiety. 04/24/22: Change Clonidine to 0.1 mg HS and 0.1 mg daily prn anxiety. 04/25/22 continue tx. 04/26/2022 some small improvement but remains bothered by AH and SI; does not want medication increased at this time; continue current plan 04/27 continue current treatment plan; will get clozapine level 04/29/22 Bowel regime-colace, senna, miralax Increase clonidine to bid 0.1 mg 05/01/22 Continue current regime 05/02/22 Decrease clozapine to 400 mg daily. Monitor for SE as levels are high 05/04/22: Noted recent decrease of clozapine dosing. Will continue to monitor 05/05/22: Sx breakthrough with decrease Clozapine. Discussed with pt. Increase Clozapine to 425 mg 05/06/22: Continue current plan 05/07/22: Continue current plan/ regime Plan: CV Q 15 minute checks Ordered clozapine level Continue current clozapine dose (recently increased about a week ago) Clindamycin 300 mg bid- 04/23-04/30 to address bacterial vaginosis Clonidine 0.1 mg bid to address anxiety Continue other regime meds as they were just increased Process concerns about mother in law. Patient educated on: medication risk/benefits and therapeutic strategies Informed Consent: understands Reason for contiued inpatient stay Substantial Risk for: rapid decompensation Time Spent With Patient Time: Total time managing care of this patient today ____ minutes.
[2022-05-07 19:35] VITALS: BP 120/77; PULSE 90; RESP 17; TEMP 36.8; O2SAT 99
[2022-05-07] MEDS: cloZAPine 100 MG TABLET 400 MG PO (21:41)
[2022-05-07] MEDS: cloZAPine 25 MG TABLET PO (21:42)
[2022-05-07] MEDS: Sennosides 8.6 MG TABLET 17.2 MG PO (21:43)
[2022-05-07] MEDS: traZODone HCL 100 MG TABLET PO (21:44)
[2022-05-07] MEDS: Melatonin 3 MG TABLET 9 MG PO (21:45)
[2022-05-08] MEDS: lamoTRIgine 25 MG TABLET PO (09:03)
[2022-05-08] MEDS: Docusate Sodium 100 MG CAPSULE PO ×2 (09:04→20:53)
[2022-05-08] MEDS: cloNIDine HCL 0.1 MG TABLET PO ×3 (09:04→19:19)
[2022-05-08] MEDS: risperiDONE 0.5 MG TABLET PO ×2 (09:04→20:53)
[2022-05-08] MEDS: Benztropine Mesylate 1 MG TABLET 2 MG PO ×2 (09:04→20:52)
[2022-05-08 09:34] VITALS: BP 111/68; PULSE 88; RESP 18; TEMP 36.7; O2SAT 98
--- NOTE | 2022-05-08 15:44 | P.PNPSI_ITS ---
Subjective Subjective Date of Service: 05/08/22 Reason For Visit: psychosis Subjective Notes: Conditional Voluntary Interim History: Patient somewhat depressed withdrawn sad looking anxious. Case reviewed with Dr. Jay Naik off her outpatient psychiatrist. Patient states she was having command voices of self-harm. She has taken a downward turn of last few months. Patient did tolerate higher doses despite elevated blood levels no evidence of respiratory or cardiac difficulties patient was scheduled for discharge tomorrow Mental Status Exam Mental Status Exam Patient Appearance: Appropriate Patient Orientation: Person, Place, Time and Situation Level of Consciousness: Alert Patient Behavior: Appropriate, Talkative, Cooperative and Good Eye Contact Mood Description: Depressed and Anxious Affect Description: Flat and Apprehensive Patient Cognition Impaired: No Ability to Follow Directions: Good Speech Pattern: Spontaneous Speech Memory Description: Intact Hallucinations: Auditory and Visual Delusions: Paranoid Ideation Perceptual Disturbances: Depersonalization and Derealization Thought Process: Intact Thought Content: positive for [place] and positive for [place] Depressive Symptoms: Increased Anxiety, Increased Irritability and Low Self Esteem Abnormal Motor Activity Signs and Symptoms: Agitation Judgement: Fair Judgement and Insight: Increased psychotic preoccupation Diagnostics Vital Signs (24Hr): Vital Signs - 24 hr 05/07/22 19:35 05/08/22 09:34 Temperature 98.2 F 98.0 F Pulse Rate 90 88 Respiratory Rate 17 18 Blood Pressure 120/77 111/68 Pulse Oximetry 99 98 Oxygen Delivery Method Room Air Room Air BMI result Body Mass Index 36.0 Labs 04/21/22 19:57 04/23/22 08:11 Medications Medications Current Medications Acetaminophen (Acetaminophen 325 Mg Tablet) 650 mg PO Q6H PRN PRN Reason: Headache/Pain Mild Scale (1-3) Last Admin: 04/23/22 21:48 Dose: 650 mg Al Hydroxide/Mg Hydroxide (Magnesium Hydrox/Alum Hydrox 30 Ml Oral.Susp) 30 ml PO Q6H PRN PRN Reason: Heartburn/Nausea Last Admin: 04/29/22 18:29 Dose: 30 ml Benztropine Mesylate (Benztropine Mesylate 1 Mg Tablet) 2 mg PO BID [facility]ANDR[facility] Last Admin: 05/08/22 09:04 Dose: 2 mg Clonidine HCl (Clonidine Hcl 0.1 Mg Tablet) 0.1 mg PO DAILY PRN; Protocol PRN Reason: anxiety Last Admin: 05/01/22 16:52 Dose: 0.1 mg Clonidine HCl (Clonidine Hcl 0.1 Mg Tablet) 0.1 mg PO BID@0900,1900 [facility]; Protocol Last Admin: 05/08/22 09:04 Dose: 0.1 mg Clozapine (Clozapine 100 Mg Tablet) 400 mg PO BEDTIME [facility] Last Admin: 05/07/22 21:41 Dose: 400 mg Clozapine (Clozapine 25 Mg Tablet) 25 mg PO BEDTIME [facility] Last Admin: 05/07/22 21:42 Dose: 25 mg Docusate Sodium (Docusate Sodium 100 Mg Capsule) 100 mg PO BID [facility] Last Admin: 05/08/22 09:04 Dose: 100 mg Hydroxyzine HCl (Hydroxyzine Hcl 25 Mg Tablet) 25 mg PO Q6H PRN PRN Reason: Anxiety Last Admin: 04/29/22 13:47 Dose: 25 mg Lamotrigine (Lamotrigine 25 Mg Tablet) 25 mg PO BID [facility] Last Admin: 05/08/22 09:03 Dose: 25 mg Magnesium Hydroxide (Milk Of Magnesia 30 Ml Oral.Susp) 30 ml PO DAILY PRN PRN Reason: Constipation Melatonin (Melatonin 3 Mg Tablet) 9 mg PO BEDTIME [facility] Last Admin: 05/07/22 21:45 Dose: 9 mg Pharmacy Consult (Consult Rx Perform Med Rec) 1 each MISCELLANE ONCE PRN PRN Reason: Consult order Polyethylene Glycol (Polyethylene Glycol 3350 17 Gm Powd.Pack) 17 gm PO DAILY [facility] Last Admin: 05/08/22 09:04 Dose: Not Given Risperidone (Risperidone 1 Mg Tablet) 1 mg PO Q4H PRN PRN Reason: auditory hallucinations Last Admin: 05/07/22 15:44 Dose: 1 mg Risperidone (Risperidone 0.5 Mg Tablet) 0.5 mg PO BID [facility] Last Admin: 05/08/22 09:04 Dose: 0.5 mg Senna (Sennosides 8.6 Mg Tablet) 17.2 mg PO BEDTIME [facility] Last Admin: 05/07/22 21:43 Dose: 17.2 mg Trazodone HCl (Trazodone Hcl 100 Mg Tablet) 100 mg PO BEDTIME [facility] Last Admin: 05/07/22 21:44 Dose: 100 mg Trazodone HCl (Trazodone Hcl 50 Mg Tablet) 50 mg PO BEDTIME PRN PRN Reason: Insomnia Last Admin: 05/06/22 21:34 Dose: 50 mg Allergies Allergies Allergy/AdvReac Type Severity Reaction Status Date / Time haloperidol [From HALDOL] AdvReac Unknown EYES Verified 10/07/21 16:11 ROLLED BACK Assessment & Plan Assessment & Plan (1) Schizoaffective disorder, depressive type: Status: Acute Code(s): F25.1 - Schizoaffective disorder, depressive type (2) PTSD (post-traumatic stress disorder): Status: Acute Code(s): F43.10 - Post-traumatic stress disorder, unspecified Plan 37 yo female, known to our service, with reports of CAH to kill herself. Recent medication increases not effective, prn Risperdal continues with effect however shadow people are telling her this is a conspiracy and meds will make her feel out of her body. Discussed med effects-she reports they calm voices and numb her at times, offering relief. Also reports significant anxiety. 04/24/22: Change Clonidine to 0.1 mg HS and 0.1 mg daily prn anxiety. 04/25/22 continue tx. 04/26/2022 some small improvement but remains bothered by AH and SI; does not want medication increased at this time; continue current plan 04/27 continue current treatment plan; will get clozapine level 04/29/22 Bowel regime-colace, senna, miralax Increase clonidine to bid 0.1 mg 05/01/22 Continue current regime 05/02/22 Decrease clozapine to 400 mg daily. Monitor for SE as levels are high 05/04/22: Noted recent decrease of clozapine dosing. Will continue to monitor 05/05/22: Sx breakthrough with decrease Clozapine. Discussed with pt. Increase Clozapine to 425 mg 05/06/22: Continue current plan 05/07/22: Continue current plan/ regime 05/08/2022 Case reviewed extensively with outpatient psychiatrist On day but often states patient normally has been a better baseline. Did do better at higher dose of clozapine overall levels were quite high over 1000 no clear cardiac or pulmonary difficulties. Dr. Ni felt patient had tolerated higher doses and would benefit. Patient has difficulty with self-esteem intrusive voices at times telling her to harm herself. Will increase Lamictal 37.5 b.i.d. includes clozapine 450 on Risperdal. Patient with chronic self-esteem issues related to being a mother and dealing with psychiatric illness. Hold off on discharge increase clozapine will try and make this brief patient does wish to get back to family soon as possible Plan: CV Q 15 minute checks Ordered clozapine level Continue current clozapine dose (recently increased about a week ago) Clindamycin 300 mg bid- 04/23-04/30 to address bacterial vaginosis Clonidine 0.1 mg bid to address anxiety Continue other regime meds as they were just increased Process concerns about mother in law. Reason for contiued inpatient stay Substantial Risk for: harm to self and rapid decompensation Time Spent With Patient Time: Total time managing care of this patient today ____ minutes.
[2022-05-08] MEDS: risperiDONE 1 MG TABLET PO (15:55)
[2022-05-08 16:00] VITALS: BP 154/97; PULSE 110; RESP 14; TEMP 36.9; O2SAT 97
[2022-05-08] MEDS: hydrOXYzine HCL 25 MG TABLET PO (17:01)
[2022-05-08 19:18] VITALS: BP 137/92; PULSE 107; RESP 14
[2022-05-08] MEDS: Melatonin 3 MG TABLET 9 MG PO (20:51)
[2022-05-08] MEDS: Sennosides 8.6 MG TABLET 17.2 MG PO (20:51)
[2022-05-08] MEDS: traZODone HCL 100 MG TABLET PO (20:52)
[2022-05-08] MEDS: cloZAPine 25 MG TABLET 50 MG PO (20:52)
[2022-05-08] MEDS: cloZAPine 100 MG TABLET 400 MG PO (20:52)
[2022-05-08] MEDS: lamoTRIgine 25 MG TABLET 37.5 MG PO (20:53)
[2022-05-08] MEDS: traZODone HCL 50 MG TABLET PO (22:36)
[2022-05-09 06:00] VITALS: BP 115/59; PULSE 81; TEMP 36.6; O2SAT 96
[2022-05-09] MEDS: lamoTRIgine 25 MG TABLET 37.5 MG PO ×2 (08:20→20:06)
[2022-05-09] MEDS: cloNIDine HCL 0.1 MG TABLET PO ×2 (08:20→19:23)
[2022-05-09] MEDS: Benztropine Mesylate 1 MG TABLET 2 MG PO ×2 (08:20→20:09)
[2022-05-09] MEDS: Docusate Sodium 100 MG CAPSULE PO ×2 (08:20→20:09)
[2022-05-09] MEDS: risperiDONE 0.5 MG TABLET PO ×2 (08:20→20:09)
[2022-05-09] MEDS: risperiDONE 1 MG TABLET PO (12:15)
[2022-05-09] MEDS: cloZAPine 25 MG TABLET 75 MG PO (20:08)
[2022-05-09] MEDS: Melatonin 3 MG TABLET 9 MG PO (20:08)
[2022-05-09] MEDS: cloZAPine 100 MG TABLET 400 MG PO (20:08)
[2022-05-09] MEDS: traZODone HCL 100 MG TABLET PO (20:09)
[2022-05-09] MEDS: Sennosides 8.6 MG TABLET 17.2 MG PO (20:09)
[2022-05-09 20:35] VITALS: BP 117/79; PULSE 89; RESP 16; TEMP 36.8; O2SAT 98
--- NOTE | 2022-05-10 00:20 | P.PNPSI_ITS ---
Subjective Subjective Date of Service: 05/09/22 Reason For Visit: psychosis Subjective Notes: Conditional Voluntary Interim History: The patient feels somewhat guilty being in the hospital reticent to talk about intrusive hallucinations have times are command telling her to hurt herself. Feels guilty about not being with her children feeling and worried that she will not be good mother. No significant complaints of side effects as Clozaril is increased back up she is aware that this is an elevated blood level but EKG is unremarkable outside of sialorrhea no other complaints Patient has anxiety and dysphoria Medication Compliance: Yes Side effects from medications: Yes Attending Groups: Yes Review of Systems Acute medical concerns: No Mental Status Exam Mental Status Exam Patient Appearance: Appropriate Patient Orientation: Person, Place, Time and Situation Level of Consciousness: Alert Patient Behavior: Appropriate, Talkative, Cooperative and Good Eye Contact Mood Description: Depressed and Anxious Affect Description: Flat and Apprehensive Patient Cognition Impaired: No Ability to Follow Directions: Good Speech Pattern: Spontaneous Speech Memory Description: Intact Hallucinations: Auditory and Visual Delusions: Paranoid Ideation Perceptual Disturbances: Depersonalization and Derealization Thought Process: Intact Thought Content: positive for [place] and positive for Perseveration Depressive Symptoms: Increased Anxiety, Increased Irritability and Low Self Esteem Abnormal Motor Activity Signs and Symptoms: Agitation Judgement: Fair Judgement and Insight: Increased psychotic preoccupation Diagnostics Vital Signs (24Hr): Vital Signs - 24 hr 05/09/22 06:00 05/09/22 20:35 Temperature 97.9 F 98.2 F Pulse Rate 81 89 Respiratory Rate 16 Blood Pressure 115/59 L 117/79 Pulse Oximetry 96 98 Oxygen Delivery Method Room Air BMI result Body Mass Index 36.0 Labs 04/21/22 19:57 04/23/22 08:11 Medications Medications Current Medications Acetaminophen (Acetaminophen 325 Mg Tablet) 650 mg PO Q6H PRN PRN Reason: Headache/Pain Mild Scale (1-3) Last Admin: 04/23/22 21:48 Dose: 650 mg Al Hydroxide/Mg Hydroxide (Magnesium Hydrox/Alum Hydrox 30 Ml Oral.Susp) 30 ml PO Q6H PRN PRN Reason: Heartburn/Nausea Last Admin: 04/29/22 18:29 Dose: 30 ml Benztropine Mesylate (Benztropine Mesylate 1 Mg Tablet) 2 mg PO BID LISANDRA Last Admin: 03/24/23 20:09 Dose: 2 mg Clonidine HCl (Clonidine Hcl 0.1 Mg Tablet) 0.1 mg PO DAILY PRN; Protocol PRN Reason: anxiety Last Admin: 05/08/22 15:55 Dose: 0.1 mg Clonidine HCl (Clonidine Hcl 0.1 Mg Tablet) 0.1 mg PO BID@0900,1900 [facility]; Protocol Last Admin: 05/09/22 19:23 Dose: 0.1 mg Clozapine (Clozapine 100 Mg Tablet) 400 mg PO BEDTIME [facility] Last Admin: 05/09/22 20:08 Dose: 400 mg Clozapine (Clozapine 25 Mg Tablet) 75 mg PO BEDTIME [facility] Last Admin: 05/09/22 20:08 Dose: 75 mg Docusate Sodium (Docusate Sodium 100 Mg Capsule) 100 mg PO BID [facility] Last Admin: 05/09/22 20:09 Dose: 100 mg Hydroxyzine HCl (Hydroxyzine Hcl 25 Mg Tablet) 25 mg PO Q6H PRN PRN Reason: Anxiety Last Admin: 05/08/22 17:01 Dose: 25 mg Lamotrigine (Lamotrigine 25 Mg Tablet) 37.5 mg PO BID [facility] Last Admin: 05/09/22 20:06 Dose: 37.5 mg Lorazepam (Lorazepam 0.5 Mg Tablet) 0.5 mg PO BID PRN PRN Reason: Anxiety Magnesium Hydroxide (Milk Of Magnesia 30 Ml Oral.Susp) 30 ml PO DAILY PRN PRN Reason: Constipation Melatonin (Melatonin 3 Mg Tablet) 9 mg PO BEDTIME [facility] Last Admin: 05/09/22 20:08 Dose: 9 mg Pharmacy Consult (Consult Rx Perform Med Rec) 1 each MISCELLANE ONCE PRN PRN Reason: Consult order Polyethylene Glycol (Polyethylene Glycol 3350 17 Gm Powd.Pack) 17 gm PO DAILY [facility] Last Admin: 05/09/22 08:19 Dose: Not Given Risperidone (Risperidone 1 Mg Tablet) 1 mg PO Q4H PRN PRN Reason: auditory hallucinations Last Admin: 05/09/22 12:15 Dose: 1 mg Risperidone (Risperidone 0.5 Mg Tablet) 0.5 mg PO BID [facility] Last Admin: 05/09/22 20:09 Dose: 0.5 mg Senna (Sennosides 8.6 Mg Tablet) 17.2 mg PO BEDTIME [facility] Last Admin: 05/09/22 20:09 Dose: 17.2 mg Trazodone HCl (Trazodone Hcl 100 Mg Tablet) 100 mg PO BEDTIME [facility] Last Admin: 05/09/22 20:09 Dose: 100 mg Trazodone HCl (Trazodone Hcl 50 Mg Tablet) 50 mg PO BEDTIME PRN PRN Reason: Insomnia Last Admin: 05/08/22 22:36 Dose: 50 mg Allergies Allergies Allergy/AdvReac Type Severity Reaction Status Date / Time haloperidol [From HALDOL] AdvReac Unknown EYES Verified 10/07/21 16:11 ROLLED BACK Assessment & Plan Assessment & Plan (1) Schizoaffective disorder, depressive type: Status: Acute Code(s): F25.1 - Schizoaffective disorder, depressive type (2) PTSD (post-traumatic stress disorder): Status: Acute Code(s): F43.10 - Post-traumatic stress disorder, unspecified Plan 37 yo female, known to our service, with reports of CAH to kill herself. Recent medication increases not effective, prn Risperdal continues with effect however shadow people are telling her this is a conspiracy and meds will make her feel out of her body. Discussed med effects-she reports they calm voices and numb her at times, offering relief. Also reports significant anxiety. 04/24/22: Change Clonidine to 0.1 mg HS and 0.1 mg daily prn anxiety. 04/25/22 continue tx. 04/26/2022 some small improvement but remains bothered by AH and SI; does not want medication increased at this time; continue current plan 04/27 continue current treatment plan; will get clozapine level 04/29/22 Bowel regime-colace, senna, miralax Increase clonidine to bid 0.1 mg 05/01/22 Continue current regime 05/02/22 Decrease clozapine to 400 mg daily. Monitor for SE as levels are high 05/04/22: Noted recent decrease of clozapine dosing. Will continue to monitor 05/05/22: Sx breakthrough with decrease Clozapine. Discussed with pt. Increase Clozapine to 425 mg 05/06/22: Continue current plan 05/07/22: Continue current plan/ regime 05/08/2022 Case reviewed extensively with outpatient psychiatrist On day but often states patient normally has been a better baseline. Did do better at higher dose of clozapine overall levels were quite high over 1000 no clear cardiac or pulmonary difficulties. Dr. Ni felt patient had tolerated higher doses and would benefit. Patient has difficulty with self-esteem intrusive voices at times telling her to harm herself. Will increase Lamictal 37.5 b.i.d. includes clozapine 450 on Risperdal. Patient with chronic self-esteem issues related to being a mother and dealing with psychiatric illness. Hold off on discharge increase clozapine will try and make this brief patient does wish to get back to family soon as possible Plan: CV Q 15 minute checks Ordered clozapine level Continue current clozapine dose (recently increased about a week ago) Clindamycin 300 mg bid- 04/23-04/30 to address bacterial vaginosis Clonidine 0.1 mg bid to address anxiety Continue other regime meds as they were just increased Process concerns about mother in law. 05/09/2022 Clozapine being increased back to higher levels unclear if she had a better response on 500 versus 400 with this appears to be the case. Risperdal has been added for augmentation unclear if patient has had a trial 1st generation antipsychotic such as perphenazine Haldol for augmentation patient on lamotrigine increase as tolerated to therapeutic levels monitor white blood count patient cannot really explain if there is a clear trigger to her elevated psychotic symptoms. She had been able to manage them previously and work more recently this became not sustainable Patient educated on: diagnosis and medication risk/benefits Informed Consent: understands Reason for contiued inpatient stay Substantial Risk for: harm to self and rapid decompensation Time Spent With Patient Time: Total time managing care of this patient today ____ minutes.
[2022-05-10] MEDS: cloNIDine HCL 0.1 MG TABLET PO ×2 (09:55→18:12)
[2022-05-10] MEDS: Benztropine Mesylate 1 MG TABLET 2 MG PO ×2 (09:56→19:41)
[2022-05-10] MEDS: risperiDONE 0.5 MG TABLET PO ×2 (09:56→19:40)
[2022-05-10] MEDS: lamoTRIgine 25 MG TABLET 37.5 MG PO ×2 (09:56→19:40)
[2022-05-10] MEDS: Docusate Sodium 100 MG CAPSULE PO ×2 (09:56→19:42)
[2022-05-10 09:59] VITALS: BP 121/62; PULSE 87; RESP 18; TEMP 37; O2SAT 97
[2022-05-10] MEDS: LORazepam 0.5 MG TABLET PO (13:24)
--- NOTE | 2022-05-10 16:23 | HO.PSYCHPN ---
Subjective Subjective Date of Service: 05/10/22 Reason For Visit: psychosis Subjective Notes: Conditional Voluntary Healthcare Proxy: No Guardianship: No Medical Problems Affecting Mental Status: No Interim History: Review with team/nursing. Pt reports some sx improvement. Discussed consultations received and outcome Pt is comfortable with Clozapine re-titration. Medication Compliance: Yes Side effects from medications: No Attending Groups: Yes Review of Systems Acute medical concerns: No Medical Review of Systems: unchanged Mental Status Exam Mental Status Exam Patient Appearance: Appropriate Patient Orientation: Person, Place, Time and Situation Level of Consciousness: Alert Patient Behavior: Appropriate, Talkative, Cooperative and Good Eye Contact Mood Description: Depressed Affect Description: Flat and Apprehensive Patient Cognition Impaired: No Ability to Follow Directions: Good Speech Pattern: Spontaneous Speech Memory Description: Intact Hallucinations: Auditory and Visual Perceptual Disturbances: Depersonalization and Derealization Thought Process: Intact Thought Content: positive for [place] Depressive Symptoms: Increased Anxiety and Low Self Esteem Judgement: Good Diagnostics Vital Signs (24Hr): Vital Signs - 24 hr 05/09/22 20:35 05/10/22 09:59 Temperature 98.2 F 98.6 F Pulse Rate 89 87 Respiratory Rate 16 18 Blood Pressure 117/79 121/62 Pulse Oximetry 98 97 Oxygen Delivery Method Room Air Room Air BMI result Body Mass Index 36.0 Labs 04/21/22 19:57 04/23/22 08:11 Medications Medications Current Medications Acetaminophen (Acetaminophen 325 Mg Tablet) 650 mg PO Q6H PRN PRN Reason: Headache/Pain Mild Scale (1-3) Last Admin: 04/23/22 21:48 Dose: 650 mg Al Hydroxide/Mg Hydroxide (Magnesium Hydrox/Alum Hydrox 30 Ml Oral.Susp) 30 ml PO Q6H PRN PRN Reason: Heartburn/Nausea Last Admin: 04/29/22 18:29 Dose: 30 ml Benztropine Mesylate (Benztropine Mesylate 1 Mg Tablet) 2 mg PO BID [facility]ANDR[facility] Last Admin: 05/10/22 09:56 Dose: 2 mg Clonidine HCl (Clonidine Hcl 0.1 Mg Tablet) 0.1 mg PO DAILY PRN; Protocol PRN Reason: anxiety Last Admin: 05/08/22 15:55 Dose: 0.1 mg Clonidine HCl (Clonidine Hcl 0.1 Mg Tablet) 0.1 mg PO BID@0900,1900 [facility]; Protocol Last Admin: 05/10/22 09:55 Dose: 0.1 mg Clozapine (Clozapine 100 Mg Tablet) 500 mg PO BEDTIME [facility] Docusate Sodium (Docusate Sodium 100 Mg Capsule) 100 mg PO BID [facility] Last Admin: 05/10/22 09:56 Dose: 100 mg Hydroxyzine HCl (Hydroxyzine Hcl 25 Mg Tablet) 25 mg PO Q6H PRN PRN Reason: Anxiety Last Admin: 05/08/22 17:01 Dose: 25 mg Lamotrigine (Lamotrigine 25 Mg Tablet) 37.5 mg PO BID [facility] Last Admin: 05/10/22 09:56 Dose: 37.5 mg Lorazepam (Lorazepam 0.5 Mg Tablet) 0.5 mg PO BID PRN PRN Reason: Anxiety Last Admin: 05/10/22 13:24 Dose: 0.5 mg Magnesium Hydroxide (Milk Of Magnesia 30 Ml Oral.Susp) 30 ml PO DAILY PRN PRN Reason: Constipation Melatonin (Melatonin 3 Mg Tablet) 9 mg PO BEDTIME [facility] Last Admin: 05/09/22 20:08 Dose: 9 mg Pharmacy Consult (Consult Rx Perform Med Rec) 1 each MISCELLANE ONCE PRN PRN Reason: Consult order Polyethylene Glycol (Polyethylene Glycol 3350 17 Gm Powd.Pack) 17 gm PO DAILY [facility] Last Admin: 05/10/22 09:55 Dose: Not Given Risperidone (Risperidone 1 Mg Tablet) 1 mg PO Q4H PRN PRN Reason: auditory hallucinations Last Admin: 05/09/22 12:15 Dose: 1 mg Risperidone (Risperidone 0.5 Mg Tablet) 0.5 mg PO BID [facility] Last Admin: 05/10/22 09:56 Dose: 0.5 mg Senna (Sennosides 8.6 Mg Tablet) 17.2 mg PO BEDTIME [facility] Last Admin: 05/09/22 20:09 Dose: 17.2 mg Trazodone HCl (Trazodone Hcl 100 Mg Tablet) 100 mg PO BEDTIME [facility] Last Admin: 05/09/22 20:09 Dose: 100 mg Trazodone HCl (Trazodone Hcl 50 Mg Tablet) 50 mg PO BEDTIME PRN PRN Reason: Insomnia Last Admin: 05/08/22 22:36 Dose: 50 mg Allergies Allergies Allergy/AdvReac Type Severity Reaction Status Date / Time haloperidol [From HALDOL] AdvReac Unknown EYES Verified 10/07/21 16:11 ROLLED BACK Assessment & Plan Assessment & Plan (1) Schizoaffective disorder, depressive type: Status: Acute Code(s): F25.1 - Schizoaffective disorder, depressive type (2) PTSD (post-traumatic stress disorder): Status: Acute Code(s): F43.10 - Post-traumatic stress disorder, unspecified Plan 37 yo female, known to our service, with reports of CAH to kill herself. Recent medication increases not effective, prn Risperdal continues with effect however shadow people are telling her this is a conspiracy and meds will make her feel out of her body. Discussed med effects-she reports they calm voices and numb her at times, offering relief. Also reports significant anxiety. 04/24/22: Change Clonidine to 0.1 mg HS and 0.1 mg daily prn anxiety. 04/25/22 continue tx. 04/26/2022 some small improvement but remains bothered by AH and SI; does not want medication increased at this time; continue current plan 04/27 continue current treatment plan; will get clozapine level 04/29/22 Bowel regime-colace, senna, miralax Increase clonidine to bid 0.1 mg 05/01/22 Continue current regime 05/02/22 Decrease clozapine to 400 mg daily. Monitor for SE as levels are high 05/04/22: Noted recent decrease of clozapine dosing. Will continue to monitor 05/05/22: Sx breakthrough with decrease Clozapine. Discussed with pt. Increase Clozapine to 425 mg 05/06/22: Continue current plan 05/07/22: Continue current plan/ regime 05/08/2022 Case reviewed extensively with outpatient psychiatrist On day but often states patient normally has been a better baseline. Did do better at higher dose of clozapine overall levels were quite high over 1000 no clear cardiac or pulmonary difficulties. Dr. Ni felt patient had tolerated higher doses and would benefit. Patient has difficulty with self-esteem intrusive voices at times telling her to harm herself. Will increase Lamictal 37.5 b.i.d. includes clozapine 450 on Risperdal. Patient with chronic self-esteem issues related to being a mother and dealing with psychiatric illness. Hold off on discharge increase clozapine will try and make this brief patient does wish to get back to family soon as possible 05/10/22 Continue current plan Plan: CV Q 15 minute checks Ordered clozapine level Continue current clozapine dose (recently increased about a week ago) Clindamycin 300 mg bid- 04/23-04/30 to address bacterial vaginosis Clonidine 0.1 mg bid to address anxiety Continue other regime meds as they were just increased Process concerns about mother in law. Patient educated on: medication risk/benefits Informed Consent: understands Reason for contiued inpatient stay Substantial Risk for: rapid decompensation Time Spent With Patient Time: Total time managing care of this patient today ____ minutes.
[2022-05-10 18:00] VITALS: BP 108/74; PULSE 97; RESP 16; TEMP 36.5; O2SAT 97
[2022-05-10] MEDS: Sennosides 8.6 MG TABLET 17.2 MG PO (19:40)
[2022-05-10] MEDS: cloZAPine 100 MG TABLET 500 MG PO (19:41)
[2022-05-10] MEDS: traZODone HCL 100 MG TABLET PO (19:41)
[2022-05-10] MEDS: Melatonin 3 MG TABLET 9 MG PO (19:42)
[2022-05-10] MEDS: traZODone HCL 50 MG TABLET PO (22:49)
[2022-05-11] MEDS: lamoTRIgine 25 MG TABLET 37.5 MG PO ×2 (08:34→21:21)
[2022-05-11] MEDS: risperiDONE 0.5 MG TABLET PO ×2 (08:35→21:22)
[2022-05-11] MEDS: Benztropine Mesylate 1 MG TABLET 2 MG PO ×2 (08:35→21:20)
[2022-05-11] MEDS: Docusate Sodium 100 MG CAPSULE PO ×2 (08:35→21:20)
[2022-05-11 08:38] VITALS: BP 96/52; PULSE 77; RESP 18; TEMP 36.4; O2SAT 97
[2022-05-11] MEDS: LORazepam 0.5 MG TABLET PO (13:05)
[2022-05-11] MEDS: metroNIDAZOLE 500 MG TABLET PO (15:19)
[2022-05-11] MEDS: risperiDONE 1 MG TABLET PO (16:38)
[2022-05-11 18:00] VITALS: BP 119/85; PULSE 95; RESP 16; TEMP 36.9; O2SAT 98
[2022-05-11] MEDS: hydrOXYzine HCL 25 MG TABLET PO (19:04)
[2022-05-11] MEDS: cloNIDine HCL 0.1 MG TABLET PO (19:05)
[2022-05-11] MEDS: cloZAPine 100 MG TABLET 500 MG PO (21:20)
[2022-05-11] MEDS: Sennosides 8.6 MG TABLET 17.2 MG PO (21:22)
[2022-05-11] MEDS: Melatonin 3 MG TABLET 9 MG PO (21:22)
[2022-05-11] MEDS: traZODone HCL 100 MG TABLET PO (21:23)
[2022-05-11] MEDS: traZODone HCL 50 MG TABLET PO (22:47)
--- NOTE | 2022-05-12 04:06 | HO.PSYCHPN ---
Subjective Subjective Date of Service: 05/11/22 Reason For Visit: psychosis Subjective Notes: Conditional Voluntary Healthcare Proxy: No Guardianship: No Medical Problems Affecting Mental Status: No Interim History: Review with team/nursing. Reports to team sx of vaginitis. Medication ordered Discussed setting limits with room-mate. Pt is frustrated and attempting to distance. Planning discharge for this week. Medication Compliance: Yes Side effects from medications: No Attending Groups: Yes Review of Systems Acute medical concerns: No Medical Review of Systems: unchanged Mental Status Exam Mental Status Exam Patient Appearance: Appropriate Patient Orientation: Person, Place, Time and Situation Level of Consciousness: Alert Patient Behavior: Appropriate, Talkative, Cooperative and Good Eye Contact Mood Description: Depressed Affect Description: Flat and Apprehensive Patient Cognition Impaired: No Ability to Follow Directions: Good Speech Pattern: Spontaneous Speech Memory Description: Intact Hallucinations: Auditory and Visual Perceptual Disturbances: Depersonalization and Derealization Thought Process: Intact Thought Content: positive for [place] Depressive Symptoms: Increased Anxiety and Low Self Esteem Judgement: Good Diagnostics Vital Signs (24Hr): Vital Signs - 24 hr 05/11/22 08:38 05/11/22 18:00 Temperature 97.5 F 98.5 F Pulse Rate 77 95 Respiratory Rate 18 16 Blood Pressure 96/52 L 119/85 Pulse Oximetry 97 98 Oxygen Delivery Method Room Air Room Air BMI result Body Mass Index 36.0 Labs 04/21/22 19:57 04/23/22 08:11 Medications Medications Current Medications Acetaminophen (Acetaminophen 325 Mg Tablet) 650 mg PO Q6H PRN PRN Reason: Headache/Pain Mild Scale (1-3) Last Admin: 04/23/22 21:48 Dose: 650 mg Al Hydroxide/Mg Hydroxide (Magnesium Hydrox/Alum Hydrox 30 Ml Oral.Susp) 30 ml PO Q6H PRN PRN Reason: Heartburn/Nausea Last Admin: 04/29/22 18:29 Dose: 30 ml Benztropine Mesylate (Benztropine Mesylate 1 Mg Tablet) 2 mg PO BID [facility] Last Admin: 05/11/22 21:20 Dose: 2 mg Clonidine HCl (Clonidine Hcl 0.1 Mg Tablet) 0.1 mg PO DAILY PRN; Protocol PRN Reason: anxiety Last Admin: 05/11/22 19:05 Dose: 0.1 mg Clonidine HCl (Clonidine Hcl 0.1 Mg Tablet) 0.1 mg PO BID@0900,1900 [facility]; Protocol Last Admin: 05/11/22 20:18 Dose: Not Given Clozapine (Clozapine 100 Mg Tablet) 500 mg PO BEDTIME [facility] Last Admin: 05/11/22 21:20 Dose: 500 mg Docusate Sodium (Docusate Sodium 100 Mg Capsule) 100 mg PO BID [facility] Last Admin: 05/11/22 21:20 Dose: 100 mg Hydroxyzine HCl (Hydroxyzine Hcl 25 Mg Tablet) 25 mg PO Q6H PRN PRN Reason: Anxiety Last Admin: 05/11/22 19:04 Dose: 25 mg Lamotrigine (Lamotrigine 25 Mg Tablet) 37.5 mg PO BID [facility] Last Admin: 05/11/22 21:21 Dose: 37.5 mg Lorazepam (Lorazepam 0.5 Mg Tablet) 0.5 mg PO BID PRN PRN Reason: Anxiety Last Admin: 05/11/22 13:05 Dose: 0.5 mg Magnesium Hydroxide (Milk Of Magnesia 30 Ml Oral.Susp) 30 ml PO DAILY PRN PRN Reason: Constipation Melatonin (Melatonin 3 Mg Tablet) 9 mg PO BEDTIME [facility] Last Admin: 05/11/22 21:22 Dose: 9 mg Metronidazole (Metronidazole 500 Mg Tablet) 500 mg PO Q12H [facility] Stop: 05/18/22 21:00 Pharmacy Consult (Consult Rx Perform Med Rec) 1 each MISCELLANE ONCE PRN PRN Reason: Consult order Polyethylene Glycol (Polyethylene Glycol 3350 17 Gm Powd.Pack) 17 gm PO DAILY [facility] Last Admin: 05/11/22 10:19 Dose: Not Given Risperidone (Risperidone 1 Mg Tablet) 1 mg PO Q4H PRN PRN Reason: auditory hallucinations Last Admin: 05/11/22 16:38 Dose: 1 mg Risperidone (Risperidone 0.5 Mg Tablet) 0.5 mg PO BID [facility] Last Admin: 05/11/22 21:22 Dose: 0.5 mg Senna (Sennosides 8.6 Mg Tablet) 17.2 mg PO BEDTIME [facility] Last Admin: 05/11/22 21:22 Dose: 17.2 mg Trazodone HCl (Trazodone Hcl 100 Mg Tablet) 100 mg PO BEDTIME [facility] Last Admin: 05/11/22 21:23 Dose: 100 mg Trazodone HCl (Trazodone Hcl 50 Mg Tablet) 50 mg PO BEDTIME PRN PRN Reason: Insomnia Last Admin: 05/11/22 22:47 Dose: 50 mg Allergies Allergies Allergy/AdvReac Type Severity Reaction Status Date / Time haloperidol [From HALDOL] AdvReac Unknown EYES Verified 10/07/21 16:11 ROLLED BACK Assessment & Plan Assessment & Plan (1) Schizoaffective disorder, depressive type: Status: Acute Code(s): F25.1 - Schizoaffective disorder, depressive type (2) PTSD (post-traumatic stress disorder): Status: Acute Code(s): F43.10 - Post-traumatic stress disorder, unspecified Plan 37 yo female, known to our service, with reports of CAH to kill herself. Recent medication increases not effective, prn Risperdal continues with effect however shadow people are telling her this is a conspiracy and meds will make her feel out of her body. Discussed med effects-she reports they calm voices and numb her at times, offering relief. Also reports significant anxiety. 04/24/22: Change Clonidine to 0.1 mg HS and 0.1 mg daily prn anxiety. 04/25/22 continue tx. 04/26/2022 some small improvement but remains bothered by AH and SI; does not want medication increased at this time; continue current plan 04/27 continue current treatment plan; will get clozapine level 04/29/22 Bowel regime-colace, senna, miralax Increase clonidine to bid 0.1 mg 05/01/22 Continue current regime 05/02/22 Decrease clozapine to 400 mg daily. Monitor for SE as levels are high 05/04/22: Noted recent decrease of clozapine dosing. Will continue to monitor 05/05/22: Sx breakthrough with decrease Clozapine. Discussed with pt. Increase Clozapine to 425 mg 05/06/22: Continue current plan 05/07/22: Continue current plan/ regime 05/08/2022 Case reviewed extensively with outpatient psychiatrist On day but often states patient normally has been a better baseline. Did do better at higher dose of clozapine overall levels were quite high over 1000 no clear cardiac or pulmonary difficulties. Dr. Ni felt patient had tolerated higher doses and would benefit. Patient has difficulty with self-esteem intrusive voices at times telling her to harm herself. Will increase Lamictal 37.5 b.i.d. includes clozapine 450 on Risperdal. Patient with chronic self-esteem issues related to being a mother and dealing with psychiatric illness. Hold off on discharge increase clozapine will try and make this brief patient does wish to get back to family soon as possible Plan: CV Q 15 minute checks Ordered clozapine level Continue current clozapine dose (recently increased about a week ago) Clindamycin 300 mg bid- 04/23-04/30 to address bacterial vaginosis Clonidine 0.1 mg bid to address anxiety Continue other regime meds as they were just increased Process concerns about mother in law. 05/09/2022 Clozapine being increased back to higher levels unclear if she had a better response on 500 versus 400 with this appears to be the case. Risperdal has been added for augmentation unclear if patient has had a trial 1st generation antipsychotic such as perphenazine Haldol for augmentation patient on lamotrigine increase as tolerated to therapeutic levels monitor white blood count patient cannot really explain if there is a clear trigger to her elevated psychotic symptoms. She had been able to manage them previously and work more recently this became not sustainable. 05/11- Continue current regime and plan of care. Informed Consent: further education needed Reason for contiued inpatient stay Substantial Risk for: rapid decompensation Time Spent With Patient Time: Total time managing care of this patient today ____ minutes.
[2022-05-12 08:39] VITALS: BP 98/53; PULSE 82; RESP 18; TEMP 36.1; O2SAT 97
[2022-05-12] MEDS: lamoTRIgine 25 MG TABLET 37.5 MG PO ×2 (08:42→21:41)
[2022-05-12] MEDS: risperiDONE 0.5 MG TABLET PO ×2 (08:42→21:41)
[2022-05-12] MEDS: cloNIDine HCL 0.1 MG TABLET PO ×2 (08:42→19:26)
[2022-05-12] MEDS: Docusate Sodium 100 MG CAPSULE PO ×2 (08:43→21:40)
[2022-05-12] MEDS: metroNIDAZOLE 500 MG TABLET PO ×2 (08:43→21:41)
[2022-05-12] MEDS: Benztropine Mesylate 1 MG TABLET 2 MG PO ×2 (08:44→21:41)
[2022-05-12] MEDS: LORazepam 0.5 MG TABLET PO (12:11)
[2022-05-12] MEDS: risperiDONE 1 MG TABLET PO ×2 (12:11→16:56)
[2022-05-12 16:15] VITALS: BP 138/90; PULSE 99; TEMP 36.6; O2SAT 98
--- NOTE | 2022-05-12 16:32 | HO.PSYCHPN ---
Subjective Subjective Date of Service: 05/12/22 Reason For Visit: psychosis Subjective Notes: Conditional Voluntary Healthcare Proxy: No Guardianship: No Medical Problems Affecting Mental Status: No Interim History: Pt preparing for discharge 05/13. Review of medications, dosages, diagnostics Questions addressed. Pt reports feeling happy to return to her family, children. Discussed concerns with a peer confrontation on the unit. Review of strategies for approach. Medication Compliance: Yes Side effects from medications: No Attending Groups: Yes Review of Systems Acute medical concerns: No Medical Review of Systems: unchanged Mental Status Exam Mental Status Exam Patient Appearance: Appropriate Patient Orientation: Person, Place, Time and Situation Level of Consciousness: Alert Patient Behavior: Appropriate, Talkative, Cooperative and Good Eye Contact Mood Description: Depressed Affect Description: Flat and Apprehensive Patient Cognition Impaired: No Ability to Follow Directions: Good Speech Pattern: Spontaneous Speech Memory Description: Intact Hallucinations: Auditory and Visual Perceptual Disturbances: Depersonalization and Derealization Thought Process: Intact Thought Content: positive for [place] Depressive Symptoms: Increased Anxiety and Low Self Esteem Judgement: Good Diagnostics Vital Signs (24Hr): Vital Signs - 24 hr 05/11/22 18:00 05/12/22 08:39 Temperature 98.5 F 96.9 F Pulse Rate 95 82 Respiratory Rate 16 18 Blood Pressure 119/85 98/53 L Pulse Oximetry 98 97 Oxygen Delivery Method Room Air Room Air BMI result Body Mass Index 36.0 Labs 04/21/22 19:57 04/23/22 08:11 Medications Medications Current Medications Acetaminophen (Acetaminophen 325 Mg Tablet) 650 mg PO Q6H PRN PRN Reason: Headache/Pain Mild Scale (1-3) Last Admin: 04/23/22 21:48 Dose: 650 mg Al Hydroxide/Mg Hydroxide (Magnesium Hydrox/Alum Hydrox 30 Ml Oral.Susp) 30 ml PO Q6H PRN PRN Reason: Heartburn/Nausea Last Admin: 04/29/22 18:29 Dose: 30 ml Benztropine Mesylate (Benztropine Mesylate 1 Mg Tablet) 2 mg PO BID [facility] Last Admin: 05/12/22 08:44 Dose: 2 mg Clonidine HCl (Clonidine Hcl 0.1 Mg Tablet) 0.1 mg PO DAILY PRN; Protocol PRN Reason: anxiety Last Admin: 05/11/22 19:05 Dose: 0.1 mg Clonidine HCl (Clonidine Hcl 0.1 Mg Tablet) 0.1 mg PO BID@0900,1900 [facility]; Protocol Last Admin: 05/12/22 08:42 Dose: 0.1 mg Clozapine (Clozapine 100 Mg Tablet) 500 mg PO BEDTIME [facility] Last Admin: 05/11/22 21:20 Dose: 500 mg Docusate Sodium (Docusate Sodium 100 Mg Capsule) 100 mg PO BID [facility] Last Admin: 05/12/22 08:43 Dose: 100 mg Hydroxyzine HCl (Hydroxyzine Hcl 25 Mg Tablet) 25 mg PO Q6H PRN PRN Reason: Anxiety Last Admin: 05/11/22 19:04 Dose: 25 mg Lamotrigine (Lamotrigine 25 Mg Tablet) 37.5 mg PO BID [facility] Last Admin: 05/12/22 08:42 Dose: 37.5 mg Lorazepam (Lorazepam 0.5 Mg Tablet) 0.5 mg PO BID PRN PRN Reason: Anxiety Last Admin: 05/12/22 12:11 Dose: 0.5 mg Magnesium Hydroxide (Milk Of Magnesia 30 Ml Oral.Susp) 30 ml PO DAILY PRN PRN Reason: Constipation Melatonin (Melatonin 3 Mg Tablet) 9 mg PO BEDTIME [facility] Last Admin: 05/11/22 21:22 Dose: 9 mg Metronidazole (Metronidazole 500 Mg Tablet) 500 mg PO Q12H [facility] Stop: 05/18/22 21:00 Last Admin: 05/12/22 08:43 Dose: 500 mg Pharmacy Consult (Consult Rx Perform Med Rec) 1 each MISCELLANE ONCE PRN PRN Reason: Consult order Polyethylene Glycol (Polyethylene Glycol 3350 17 Gm Powd.Pack) 17 gm PO DAILY [facility] Last Admin: 05/12/22 08:43 Dose: Not Given Risperidone (Risperidone 1 Mg Tablet) 1 mg PO Q4H PRN PRN Reason: auditory hallucinations Last Admin: 05/12/22 12:11 Dose: 1 mg Risperidone (Risperidone 0.5 Mg Tablet) 0.5 mg PO BID [facility] Last Admin: 05/12/22 08:42 Dose: 0.5 mg Senna (Sennosides 8.6 Mg Tablet) 17.2 mg PO BEDTIME [facility] Last Admin: 05/11/22 21:22 Dose: 17.2 mg Trazodone HCl (Trazodone Hcl 100 Mg Tablet) 100 mg PO BEDTIME [facility] Last Admin: 05/11/22 21:23 Dose: 100 mg Trazodone HCl (Trazodone Hcl 50 Mg Tablet) 50 mg PO BEDTIME PRN PRN Reason: Insomnia Last Admin: 05/11/22 22:47 Dose: 50 mg Allergies Allergies Allergy/AdvReac Type Severity Reaction Status Date / Time haloperidol [From HALDOL] AdvReac Unknown EYES Verified 10/07/21 16:11 ROLLED BACK Assessment & Plan Assessment & Plan (1) Schizoaffective disorder, depressive type: Status: Acute Code(s): F25.1 - Schizoaffective disorder, depressive type (2) PTSD (post-traumatic stress disorder): Status: Acute Code(s): F43.10 - Post-traumatic stress disorder, unspecified Plan 37 yo female, known to our service, with reports of CAH to kill herself. Recent medication increases not effective, prn Risperdal continues with effect however shadow people are telling her this is a conspiracy and meds will make her feel out of her body. Discussed med effects-she reports they calm voices and numb her at times, offering relief. Also reports significant anxiety. 04/24/22: Change Clonidine to 0.1 mg HS and 0.1 mg daily prn anxiety. 04/25/22 continue tx. 04/26/2022 some small improvement but remains bothered by AH and SI; does not want medication increased at this time; continue current plan 04/27 continue current treatment plan; will get clozapine level 04/29/22 Bowel regime-colace, senna, miralax Increase clonidine to bid 0.1 mg 05/01/22 Continue current regime 05/02/22 Decrease clozapine to 400 mg daily. Monitor for SE as levels are high 05/04/22: Noted recent decrease of clozapine dosing. Will continue to monitor 05/05/22: Sx breakthrough with decrease Clozapine. Discussed with pt. Increase Clozapine to 425 mg 05/06/22: Continue current plan 05/07/22: Continue current plan/ regime 05/08/2022 Case reviewed extensively with outpatient psychiatrist On day but often states patient normally has been a better baseline. Did do better at higher dose of clozapine overall levels were quite high over 1000 no clear cardiac or pulmonary difficulties. Dr. Ni felt patient had tolerated higher doses and would benefit. Patient has difficulty with self-esteem intrusive voices at times telling her to harm herself. Will increase Lamictal 37.5 b.i.d. includes clozapine 450 on Risperdal. Patient with chronic self-esteem issues related to being a mother and dealing with psychiatric illness. Hold off on discharge increase clozapine will try and make this brief patient does wish to get back to family soon as possible Plan: CV Q 15 minute checks Ordered clozapine level Continue current clozapine dose (recently increased about a week ago) Clindamycin 300 mg bid- 04/23-04/30 to address bacterial vaginosis Clonidine 0.1 mg bid to address anxiety Continue other regime meds as they were just increased Process concerns about mother in law. 05/09/2022 Clozapine being increased back to higher levels unclear if she had a better response on 500 versus 400 with this appears to be the case. Risperdal has been added for augmentation unclear if patient has had a trial 1st generation antipsychotic such as perphenazine Haldol for augmentation patient on lamotrigine increase as tolerated to therapeutic levels monitor white blood count patient cannot really explain if there is a clear trigger to her elevated psychotic symptoms. She had been able to manage them previously and work more recently this became not sustainable. 05/11- Continue current regime and plan of care. 05/12/22- Discharge 05/13 Patient educated on: medication risk/benefits and therapeutic strategies Informed Consent: understands Reason for contiued inpatient stay Substantial Risk for: rapid decompensation Time Spent With Patient Time: Total time managing care of this patient today ____ minutes.
[2022-05-12 19:24] VITALS: BP 127/75; PULSE 97
[2022-05-12] MEDS: Melatonin 3 MG TABLET 9 MG PO (21:40)
[2022-05-12] MEDS: traZODone HCL 100 MG TABLET PO (21:41)
[2022-05-12] MEDS: cloZAPine 100 MG TABLET 500 MG PO (21:41)
[2022-05-12] MEDS: Sennosides 8.6 MG TABLET 17.2 MG PO (21:41)
--- NOTE | 2022-05-12 23:03 | PC.NURSE ---
Patient expressed ambivalence about going home. She continues to have AH to harm herself. Prn Risperdal is moderately effective per pt report.
[2022-05-13 08:25] VITALS: BP 103/58; PULSE 78; RESP 18; TEMP 36.4; O2SAT 99
[2022-05-13] MEDS: risperiDONE 0.5 MG TABLET PO (08:26)
[2022-05-13] MEDS: Benztropine Mesylate 1 MG TABLET 2 MG PO (08:26)
[2022-05-13] MEDS: cloNIDine HCL 0.1 MG TABLET PO (08:26)
[2022-05-13] MEDS: lamoTRIgine 25 MG TABLET 37.5 MG PO (08:26)
[2022-05-13] MEDS: metroNIDAZOLE 500 MG TABLET PO (08:27)
[2022-05-13] MEDS: Docusate Sodium 100 MG CAPSULE PO (08:27)
[2022-05-13 08:48] LABS: Neut%MD 49.4 %; Neutrophils Absolute Auto 3.4 x10*3/uL (2.0-8.3)
[2022-05-13] MEDS: LORazepam 0.5 MG TABLET PO (14:40)
[2022-05-13] MEDS: risperiDONE 1 MG TABLET PO (15:06)
--- NOTE | 2022-05-13 15:41 | PC.NURSE ---
Patient easily engaged. Reports depression has improved, continues with anxiety. Requested and received PRN medications prior to discharge. Reports AH persist although improved. Thoughts linear and organized. Denies SI/HI plan or intent. Planning to return to home. Appointments reviewed with patient, reports understanding. Medications reviewed with patient reports understanding. All belongings taken with patient. Crisis numbers provided.
--- NOTE | 2022-05-24 17:56 | P.DS_ITS ---
DS: Providers Provider Date of Service: 05/13/22 Date of admission: 04/22/22 19:00 Date of discharge: 05/13/22 Primary care physician: Carlos Degroot III, MD Admitting clinician: Iarm Adan Attending physician on admission: Eddie Thomas Attending physician on discharge: Eddie Thomas Discharging clinician: Iram Adan DS: Diagnosis Discharge Diagnosis (1) Schizoaffective disorder, depressive type: Status: Acute (2) PTSD (post-traumatic stress disorder): Status: Acute DS: Medications Discharge Medications Home Medications: Previous Rx's Medication Instructions Recorded benztropine 2 mg tablet 2 mg PO BID 30 days #60 tabs 05/13/22 clonidine HCl 0.1 mg tablet 0.1 mg PO BID@0900,1900 #90 tabs 05/13/22 clonidine HCl 0.1 mg tablet 0.1 mg PO DAILY PRN anxiety #0 tabs 05/13/22 clozapine 100 mg tablet 500 mg PO BEDTIME #35 tabs 05/13/22 docusate sodium 100 mg capsule 100 mg PO BID #60 caps 05/13/22 lamotrigine 25 mg tablet 37.5 mg PO BID #90 tabs 05/13/22 lorazepam 1 mg tablet 1 mg PO BID PRN Anxiety 30 days 05/13/22 #14 tabs melatonin 3 mg tablet 9 mg PO BEDTIME #90 tabs 05/13/22 metronidazole 500 mg tablet 500 mg PO Q12H #14 tabs 05/13/22 polyethylene glycol 3350 17 gram 17 g PO DAILY #30 ea 05/13/22 oral powder packet risperidone 0.5 mg tablet 0.5 mg PO BID #60 tabs 05/13/22 risperidone 1 mg tablet 1 mg PO Q4H PRN auditory 05/13/22 hallucinations 30 days #30 tabs sennosides 8.6 mg tablet (Senna 17.2 mg PO BEDTIME #30 tabs 05/13/22 Lax) trazodone 100 mg tablet 100 mg PO BEDTIME 30 days #30 tabs 05/13/22 trazodone 50 mg tablet 50 mg PO BEDTIME PRN Insomnia #30 05/13/22 tabs Mental Status Exam Mental Status Exam Patient Appearance: Appropriate Patient Orientation: Person, Place, Time and Situation Level of Consciousness: Alert Patient Behavior: Appropriate, Talkative, Cooperative and Good Eye Contact Mood Description: Depressed Affect Description: Flat and Apprehensive Patient Cognition Impaired: No Ability to Follow Directions: Good Speech Pattern: Spontaneous Speech Memory Description: Intact Hallucinations: None Delusions: Not Present Perceptual Disturbances: Depersonalization Thought Process: Intact Thought Content: positive for [place] Depressive Symptoms: Increased Anxiety and Low Self Esteem Judgement: Good DS: Summary Hospital Course Hospital Course: Admission to adult psychiatry for exacerbation of schizoaffective disorder, depressed. Pt reported auditory and visual perceptual alterations. Risperdal was scheduled to augment Clozapine, Clonidine was added along with Lamictal. Daysi was able to participate in the milieu with symptom relief and found this combination useful. Clozaril dosage was decreased due to high levels with symptoms recurring. As a result, retitration to 500 mg daily was effective. Status at Discharge Functional status at discharge: independent ambulation Overall status at discharge: patient is progressing back to baseline Time Spent with Patient Time attestation: Total time managing care of this patient today ____ minutes. Time spent: Greater than 30 minutes Discharge Plan Discharge Anticipated Discharge Date/Time: 05/13/22 12:41 Patient Disposition: Home, Self-Care Discharge Diagnosis: PTSD Schizoaffective Disorder, Depressed. Referrals: Dr. Leahy: [facility] [Other] - 05/14/22 12:00 pm (Follow-up discharge appointment for medication management Appointment is by tele-health) Amirabarbara Santacruz: [facility] [Other] - 05/15/22 1:45 pm (Follow-up discharge appointment with therapist Appointment is by tele-health) Carlos Degroot III, MD [Primary Care Provider] - 1 Week (LEFT MESSAGE TO CALL US OR CALL PT. WITH F/U APPOINMENT.) Discharge Medications: New metronidazole 500 mg Tablet 500 mg PO Q12H Qty: 14 0RF clonidine HCl 0.1 mg Tablet 0.1 mg PO BID@0900,1900 Qty: 90 0RF Protocol: Hold for SBP< HOLD for SBP < : 90 Rx Instructions: 1 tab bid and 1 tab daily prn anxiety clonidine HCl 0.1 mg Tablet 0.1 mg PO DAILY PRN (Reason: anxiety) Qty: 0 0RF Protocol: Hold for SBP< HOLD for SBP < : 90 lamotrigine 25 mg Tablet 37.5 mg PO BID Qty: 90 0RF risperidone 0.5 mg Tablet 0.5 mg PO BID Qty: 60 0RF trazodone 50 mg Tablet 50 mg PO BEDTIME PRN (Reason: Insomnia) Qty: 30 0RF docusate sodium 100 mg Capsule 100 mg PO BID Qty: 60 0RF polyethylene glycol 3350 17 gram Powder In Packet 17 g PO DAILY Qty: 30 0RF sennosides [Senna Lax] 8.6 mg Tablet 17.2 mg PO BEDTIME Qty: 30 0RF Continued melatonin 3 mg Tablet 9 mg PO BEDTIME Qty: 90 0RF trazodone 100 mg tablet 100 mg PO BEDTIME 30 Days Qty: 30 0RF benztropine 2 mg tablet 2 mg PO BID 30 Days Qty: 60 0RF lorazepam 1 mg tablet 1 mg PO BID PRN (Reason: Anxiety) 30 Days Qty: 14 3RF risperidone 1 mg Tablet 1 mg PO Q4H PRN (Reason: auditory hallucinations) 30 Days Qty: 30 0RF Changed clozapine 100 mg tablet 500 mg PO BEDTIME Qty: 35 0RF Discontinued lamotrigine 25 mg Tablet See Rx Instructions .ROUTE .COMPLEX Qty: 52 0RF Rx Instructions: take 1 tab at bedtime for 8 days; then take 1 tab BID Discharge Orders: Discharge Order (Routine); Ordered 05/13/22 Ordered By: Iram Adan Diet: Advance to usual diet Activity on Discharge: As tolerated Stand Alone Forms: Patient Portal Discharge page, Community Support Care Plan Goals: Mood and behavioral stabilization Health Concerns: Mood and behavioral stabilization Plan of Treatment: Connect with out patient providers Attend follow up appointments Take medications as directed Call/return as needed Assessment: Pt interviewed prior to discharge and found to be fully oriented and without SI/HI. Pt has insight and demonstrates good judgment in terms of wanting to pursue treatment. Pt is not in imminent risk of harm to self or others and has a safety plan that includes presenting to the closest ER or calling 911 if feeling unsafe. Pt has been observed closely by nursing and unit staff throughout admission. Pt has not engaged in any behaviors that suggest dangerousness to self or others and has demonstrated appropriate behaviors and impulse control. Discharge Date/Time: 05/13/22 15:20
== END 2022-05-13 15:20 | disposition home or self-care (01) | DRG 750 ==
LOC: HO.ED 04-22 13:26 → HO.PM5 04-22 19:08
PROVIDERS: Physician Assistant; Psychiatry & Neurology Psychiatry; Admitting Provider Social Worker; Emergency Provider Emergency Medicine; PCP Internal Medicine; Visit Provider Clinical Nurse Specialist Psychiatric/Mental Health, Adult
DX: F25.1 Schizoaffective disorder, depressive type (principal); R45.851 Suicidal ideations; F43.10 Post-traumatic stress disorder, unspecified; Z20.822 Contact with and (suspected) exposure to COVID-19; Z87.891 Personal history of nicotine dependence; Z88.8 Allergy status to other drugs, medicaments and biological substances; Z79.899 Other long term (current) drug therapy; Z62.810 Personal history of physical and sexual abuse in childhood; N76.0 Acute vaginitis
CPT/HCPCS: 36415; 80048; 80053; 80061; 80076; 80159; 80307; 81001; 81025; 82077; 83036; 83735; 84443; 85025; 85048; 87635; 93005; 99285; S9485

== ENCOUNTER 2022-05-24 11:34 | Outpatient (REF) | payer BC, SELFPAY ==
[2022-05-24 13:36] LABS: MANUAL DIFF FLAG NO
[2022-05-24 13:37] LABS: Basophils Absolute Auto 0.1 X10*3/uL (0.0-0.2); Basophils Percent Auto 1.1 % (0-2); Eosinophils Absolute Auto 0.1 X10*3/uL (0.0-0.4); Eosinophils Percent Auto 1.9 % (0-4); Hematocrit 43.6 % (37.0-47.0); Hemoglobin 14.2 g/dl (12.0-16.0); Imm Gran Abs Auto 0.03 X10*3/uL (0.00-0.03); Imm Gran Pct Auto 0.4 % (0.0-0.4); Lymphocytes Absolute Auto 3.6 X10*3/uL (1.2-4.9); Lymphocytes Percent Auto 49.4 % (20-40); Mean Corpuscular HGB Conc 32.6 g/dl (31.0-35.0); Mean Corpuscular Hemoglobin 28.9 pg (27.0-33.0); Mean Corpuscular Volume 88.8 fL (80.0-98.0); Mean Platelet Volume 11.4 fL (9.4-12.3); Monocytes Absolute Auto 0.4 X10*3/uL (0.1-1.2); Monocytes Percent Auto 5.9 % (2-11); Neutrophils Percent Auto 41.3 % (45-73); Platelet Count 288 X10*3/uL (160-400); Red Blood Count 4.91 X10*6/uL (4.20-5.50); Red Cell Distribution Width 14.1 % (11.0-16.0); White Blood Count 7.3 X10*3/uL (4.8-10.8)
[2022-05-28 10:04] LABS: Norclozapine 1069 mcg/L (25-400)
== END 2022-05-24 11:35 | disposition home or self-care (01) ==
LOC: HO.HMGCLR 11:34
PROVIDERS: PCP Internal Medicine; Visit Provider Psychiatry & Neurology Psychiatry
DX: Z79.899 Other long term (current) drug therapy (principal)
CPT/HCPCS: 36415; 80159; 85025

== ENCOUNTER → 2022-05-30 15:39 | Outpatient (REF) | payer BC, SELFPAY ==
--- NOTE | 2022-05-30 15:45 | ECG_ITS ---
Test Reason : r/o conduction delay Blood Pressure : / mmHG Vent. Rate : 102 BPM Atrial Rate : 102 BPM P-R Int : 128 ms QRS Dur : 082 ms QT Int : 318 ms P-R-T Axes : 053 010 044 degrees QTc Int : 414 ms Sinus tachycardia Minimal voltage criteria for LVH, may be normal variant ( R in aVL ) Nonspecific T wave abnormality Abnormal ECG When compared with ECG of 05-MAY-2022 12:13, No significant change was found Referred By: Kevin Leahy Electronically Signed By:LEANNA TAI MD
== END ==
LOC: HO.CARD 15:39
PROVIDERS: PCP Internal Medicine; Visit Provider Psychiatry & Neurology Psychiatry
DX: Z79.899 Other long term (current) drug therapy (principal)
CPT/HCPCS: 93005

== ENCOUNTER 2022-06-25 08:45 | Outpatient (REF) | payer BC, SELFPAY ==
[2022-06-25 11:39] LABS: Hemoglobin 12.7 g/dl (12.0-16.0); Mean Corpuscular HGB Conc 32.6 g/dl (31.0-35.0); Mean Corpuscular Hemoglobin 28.9 pg (27.0-33.0); Mean Corpuscular Volume 88.8 fL (80.0-98.0); Mean Platelet Volume 10.7 fL (9.4-12.3); NRBC Pct Auto 0.4 /100WBC (0.0-0.2); Platelet Count 341 X10*3/uL (160-400); Red Blood Count 4.39 X10*6/uL (4.20-5.50); Red Cell Distribution Width 13.8 % (11.0-16.0); White Blood Count 9.6 X10*3/uL (4.8-10.8)
[2022-06-25 13:00] LABS: Band Neutrophils Percent 3 % (3-5); Basophils Abs Manual 0.1 X10*3/uL (0.0-0.2); Basophils Percent Manual 1 % (0-2); Eosinophils Absolute Manual 0.4 X10*3/uL (0.0-0.4); Eosinophils Percent Manual 4 % (0-4); Lymphocytes Absolute Manual 2.1 X10*3/uL (1.2-4.9); Lymphocytes Percent Manual 22 % (20-40); Metamyelocytes Absolute 0.2 X10*3/uL; Metamyelocytes Percent 2 %; Monocytes Absolute Manual 0.5 X10*3/uL (0.1-1.2); Monocytes Percent Manual 5 % (2-11); Neutrophils Absolute Manual 6.3 X10*3/uL (2.0-8.3); Neutrophils Percent Manual 63 % (45-73)
[2022-06-25 13:01] LABS: Nucleated Red Blood Cells 1 /100WBC (0-0); Platelet Estimate NORMAL (NORMAL); Platelet Morphology Comment NORMAL; RBC Morphology NORMAL
== END 2022-06-25 08:46 | disposition home or self-care (01) ==
LOC: HO.HMGCLR 08:45
PROVIDERS: PCP Psychiatry & Neurology Psychiatry; Visit Provider Psychiatry & Neurology Psychiatry
DX: Z79.899 Other long term (current) drug therapy (principal)
CPT/HCPCS: 36415; 85007; 85027

== ENCOUNTER 2022-07-23 08:37 | Outpatient (REF) | payer BC, SELFPAY ==
[2022-07-23 11:11] LABS: MANUAL DIFF FLAG NO
[2022-07-23 11:24] LABS: Basophils Absolute Auto 0.1 X10*3/uL (0.0-0.2); Eosinophils Absolute Auto 0.3 X10*3/uL (0.0-0.4); Eosinophils Percent Auto 3.1 % (0-4); Hematocrit 41.1 % (37.0-47.0); Hemoglobin 13.3 g/dl (12.0-16.0); Imm Gran Abs Auto 0.05 X10*3/uL (0.00-0.03); Imm Gran Pct Auto 0.6 % (0.0-0.4); Lymphocytes Absolute Auto 3.5 X10*3/uL (1.2-4.9); Lymphocytes Percent Auto 42.2 % (20-40); Mean Corpuscular HGB Conc 32.4 g/dl (31.0-35.0); Mean Corpuscular Hemoglobin 29.8 pg (27.0-33.0); Mean Corpuscular Volume 91.9 fL (80.0-98.0); Mean Platelet Volume 11.1 fL (9.4-12.3); Monocytes Absolute Auto 0.6 X10*3/uL (0.1-1.2); Monocytes Percent Auto 6.7 % (2-11); Neut%MD 46.4 %; Neutrophils Absolute Auto 3.8 x10*3/uL (2.0-8.3); Neutrophils Percent Auto 46.4 % (45-73); Platelet Count 320 X10*3/uL (160-400); Red Blood Count 4.47 X10*6/uL (4.20-5.50); Red Cell Distribution Width 15.9 % (11.0-16.0); WBCANC 8.2 X10*3/uL; White Blood Count 8.2 X10*3/uL (4.8-10.8)
== END 2022-07-23 08:38 | disposition home or self-care (01) ==
LOC: HO.HMGCLR 08:37
PROVIDERS: PCP Internal Medicine; Visit Provider Psychiatry & Neurology Psychiatry
DX: Z51.81 Encounter for therapeutic drug level monitoring (principal)
CPT/HCPCS: 36415; 85025

== ENCOUNTER 2022-08-20 14:16 | Outpatient (REF) | payer BC, SELFPAY ==
[2022-08-20 16:24] LABS: MANUAL DIFF FLAG NO
[2022-08-20 16:29] LABS: Basophils Absolute Auto 0.1 X10*3/uL (0.0-0.2); Basophils Percent Auto 0.8 % (0-2); Eosinophils Absolute Auto 0.1 X10*3/uL (0.0-0.4); Eosinophils Percent Auto 1.9 % (0-4); Hematocrit 40.5 % (37.0-47.0); Imm Gran Abs Auto 0.03 X10*3/uL (0.00-0.03); Imm Gran Pct Auto 0.4 % (0.0-0.4); Lymphocytes Absolute Auto 2.8 X10*3/uL (1.2-4.9); Lymphocytes Percent Auto 38.5 % (20-40); Mean Corpuscular HGB Conc 32.1 g/dl (31.0-35.0); Mean Corpuscular Volume 90.2 fL (80.0-98.0); Mean Platelet Volume 11.6 fL (9.4-12.3); Monocytes Absolute Auto 0.5 X10*3/uL (0.1-1.2); Monocytes Percent Auto 6.5 % (2-11); Neutrophils Absolute Auto 3.8 x10*3/uL (2.0-8.3); Neutrophils Percent Auto 51.9 % (45-73); Platelet Count 309 X10*3/uL (160-400); Red Blood Count 4.49 X10*6/uL (4.20-5.50); Red Cell Distribution Width 14.7 % (11.0-16.0); White Blood Count 7.4 X10*3/uL (4.8-10.8)
== END 2022-08-20 14:17 | disposition home or self-care (01) ==
LOC: HO.HMGCLDS 14:16
PROVIDERS: Visit Provider Psychiatry & Neurology Psychiatry
DX: Z51.81 Encounter for therapeutic drug level monitoring (principal)
CPT/HCPCS: 36415; 85025; 85048

== ENCOUNTER 2022-09-17 14:17 | Outpatient (REF) | payer BC, SELFPAY ==
[2022-09-17 16:14] LABS: MANUAL DIFF FLAG NO
[2022-09-17 16:16] LABS: Basophils Absolute Auto 0.1 X10*3/uL (0.0-0.2); Basophils Percent Auto 1.1 % (0-2); Eosinophils Absolute Auto 0.2 X10*3/uL (0.0-0.4); Eosinophils Percent Auto 2.6 % (0-4); Hematocrit 42.9 % (37.0-47.0); Imm Gran Abs Auto 0.02 X10*3/uL (0.00-0.03); Imm Gran Pct Auto 0.3 % (0.0-0.4); Lymphocytes Absolute Auto 2.6 X10*3/uL (1.2-4.9); Lymphocytes Percent Auto 39.4 % (20-40); Mean Corpuscular HGB Conc 32.6 g/dl (31.0-35.0); Mean Corpuscular Hemoglobin 28.7 pg (27.0-33.0); Mean Corpuscular Volume 87.9 fL (80.0-98.0); Mean Platelet Volume 11.2 fL (9.4-12.3); Monocytes Absolute Auto 0.4 X10*3/uL (0.1-1.2); Monocytes Percent Auto 5.9 % (2-11); Neutrophils Absolute Auto 3.3 x10*3/uL (2.0-8.3); Neutrophils Percent Auto 50.7 % (45-73); Platelet Count 308 X10*3/uL (160-400); Red Blood Count 4.88 X10*6/uL (4.20-5.50); White Blood Count 6.6 X10*3/uL (4.8-10.8)
== END 2022-09-17 14:18 | disposition home or self-care (01) ==
LOC: HO.HMGCLR 14:17
PROVIDERS: PCP Internal Medicine; Visit Provider Psychiatry & Neurology Psychiatry
DX: Z79.899 Other long term (current) drug therapy (principal)
CPT/HCPCS: 36415; 85025; 85048

== ENCOUNTER 2022-10-10 12:36 | Outpatient (REF) | payer BC, SELFPAY ==
[2022-10-10 15:58] LABS: MANUAL DIFF FLAG NO
[2022-10-10 16:01] LABS: Basophils Absolute Auto 0.1 X10*3/uL (0.0-0.2); Basophils Percent Auto 0.9 % (0-2); Eosinophils Absolute Auto 0.1 X10*3/uL (0.0-0.4); Eosinophils Percent Auto 1.2 % (0-4); Hematocrit 40.7 % (37.0-47.0); Hemoglobin 13.3 g/dl (12.0-16.0); Imm Gran Abs Auto 0.03 X10*3/uL (0.00-0.03); Imm Gran Pct Auto 0.4 % (0.0-0.4); Lymphocytes Absolute Auto 2.2 X10*3/uL (1.2-4.9); Lymphocytes Percent Auto 28.6 % (20-40); Mean Corpuscular HGB Conc 32.7 g/dl (31.0-35.0); Mean Corpuscular Hemoglobin 29.3 pg (27.0-33.0); Mean Corpuscular Volume 89.6 fL (80.0-98.0); Mean Platelet Volume 11.6 fL (9.4-12.3); Monocytes Absolute Auto 0.6 X10*3/uL (0.1-1.2); Monocytes Percent Auto 8.3 % (2-11); Neutrophils Absolute Auto 4.6 x10*3/uL (2.0-8.3); Neutrophils Percent Auto 60.6 % (45-73); Platelet Count 289 X10*3/uL (160-400); Red Blood Count 4.54 X10*6/uL (4.20-5.50); Red Cell Distribution Width 14.6 % (11.0-16.0); White Blood Count 7.6 X10*3/uL (4.8-10.8)
== END 2022-10-10 12:37 | disposition home or self-care (01) ==
LOC: HO.HMGCLR 12:36
PROVIDERS: Visit Provider Psychiatry & Neurology Psychiatry
DX: Z79.899 Other long term (current) drug therapy (principal)
CPT/HCPCS: 36415; 85025; 85048

== ENCOUNTER 2022-11-13 14:09 | Inpatient (IN) | payer BC, SELFPAY ==
[2022-11-13 14:18] VITALS: BP 137/104; BP 152/80; PULSE 109; PULSE 112; RESP 16; TEMP 36.6; O2SAT 96; O2SAT 98; BMI 38.6
--- NOTE | 2022-11-13 14:31 | PC.NURSE ---
addendum, patient is voluntary, patient lives with and 2 kids, increasing AH in last two weeks. uses [facility] pharmacy states current w medications
--- NOTE | 2022-11-13 14:36 | ED_ITS ---
HPI - Psych General Chief Complaint: Psychiatric Symptoms Stated Complaint: +SI,RACING THOUGHTS X'S WEEKS PER EMS Time Seen by Provider: 11/13/22 14:09 Source: patient Mode of arrival: ambulatory Limitations: no limitations History of Present Illness HPI Narrative: Patient is a 37-year-old female with history of schizophrenia, PTSD, psychosis, polysubstance abuse presenting to the emergency department with report of auditory and visual hallucinations for the past several weeks. Patient states that she is hearing voices to hurt herself and hang herself in the basement. She also reports visual hallucinations of shadows as well as beetles. She denies any command hallucinations as to hurt anyone else beside herself. She states that she has been taking her medications as prescribed and denies any new medications or recent medication changes. She denies any physical complaints. She denies any ingestion or self-inflicted trauma. MD complaint: suicidal ideation and hallucinations Onset (ago): week(s) Duration: constant and getting worse History of same: Yes Relieving factors: none Exacerbating factors: none Associated psychiatric symptoms: suicidal ideation, auditory hallucinations and visual hallucinations Associated symptoms: denies other symptoms Treatments prior to arrival: none If self harm: admits thoughts of self harm and has plan Details of plan: Hang self in basement Related Data Home Medications Medication Instructions Recorded Confirmed clonidine HCl 0.1 mg tablet 0.1 mg PO BEDTIME anxiety 11/13/22 11/13/22 lamotrigine 100 mg tablet 100 mg PO BEDTIME 11/13/22 11/13/22 melatonin 3 mg tablet 9 mg PO BEDTIME PRN Insomnia 11/13/22 11/13/22 risperidone 1 mg tablet 1 mg PO BID auditory hallucinations 11/13/22 11/13/22 Previous Rx's Medication Instructions Recorded clozapine 100 mg tablet 500 mg (5 x 100 mg) PO BEDTIME #35 05/13/22 tabs lorazepam 1 mg tablet 1 mg PO BID PRN Anxiety 30 days 05/13/22 #14 tabs trazodone 100 mg tablet 100 mg PO BEDTIME 30 days #30 tabs 05/13/22 Allergies Allergy/AdvReac Type Severity Reaction Status Date / Time haloperidol [From HALDOL] AdvReac Unknown EYES Verified 10/07/21 16:11 ROLLED BACK Review of Systems 2 Review of Systems: As per HPI. Yes all other systems are reviewed and are negative Constitutional: Constitutional: Reports as per [facility] Past Medical History Medical History Polysubstance abuse Psychosis PTSD (post-traumatic stress disorder) Schizophrenia Social History Social History Household Members: Family Housing: Apartment Housing Other:: [facility] Do you presently have visiting nurse or other home services: No Alcohol intake: current Alcohol intake frequency: holidays/special occasions only Patient Tobacco Use Status: Never used Tobacco Smoked in Last 30 Days: No e-Cigarette/Vaping Use: Never Used Second Hand Smoke Exposure: No Use of substances other than those prescribed or required for medical reasons: No Substance Use Type: Caffiene Currently Displaying Signs/Symptoms of Drug Intoxication Withdrawal: No Any prior treatment program specific to substance use: No Have you been hit, kicked, punched, or otherwise hurt by someone within the past year? If so, by whom?: No Do you feel safe in your current relationship?: Yes Is there a partner from a previous relationship who is making you feel unsafe now?: No Are you made to feel afraid or neglected: No Advance Directives: No Advance Directives Information Provided: No Do you have thoughts of harming others: None Do you have a plan to hurt others: No Plan Recently lost weight without trying: No Nutrition Risks: No Nutritional Risk Patient : No : No Poor oral hygiene: No service: No Sexual orientation: Straight/Heterosexual Physical Exam 2 Vital Signs: Vital Signs: Last Vital Signs Temp 97.4 F 11/14/22 09:20 Pulse 81 11/14/22 09:20 Resp 18 11/14/22 09:20 BP 113/70 11/14/22 09:20 Pulse Ox 97 11/14/22 09:20 O2 Del Method Room Air 11/14/22 09:20 BMI result Body Mass Index 38.6 Vital signs have been reviewed and appear to be correct. Blood pressure elevated. Heart rate normal. Respiratory rate normal. Temperature normal. Oxygen saturation normal. Const: General: cooperative, healthy appearing and no acute distress O rientation/consciousness: oriented to person, oriented to place, oriented to time and patient oriented x3 Limitations: no limitations HEENT: Head: Yes normocephalic and Yes atraumatic Ears: external ears normal General nose exam: Normal external nose present Face and sinus: Yes face symmetric Mouth: oropharynx normal and moist mucous membranes Throat: Yes uvula midline Eyes: Pupils: Equal, round and reactive pupils present Neck: Neck: Yes normal visual inspection and Yes supple Resp: Effort & Inspection: normal respiratory effort and able to speak in complete sentences Auscultation: clear to auscultation bilaterally Cardio: Rate: regular rate Rhythm: regular rhythm Heart sounds: S1 normal heart sound present and S2 normal heart sound present GI: Palpation (GI): Soft to palpation and nontender Auscultation: n ormoactive bowel sounds : General: Yes no CVA tenderness Back/Spine/Pelvis: Back: no CVA tenderness Skin: General skin exam: elasticity normal and turgor normal Neuro: General: oriented to person, oriented to place, oriented to time, patient oriented x3, moves all extremities, no focal motor deficits and CN's II- XI intact bilaterally Cranial nerves: Yes Equal, round and reactive pupils present Cognition (Neuro): normal cognition Extrem: General: Yes full ROM, Yes no pedal edema and Yes no calf tenderness Psych: Other: Appears to be responding to internal stimuli during assessment Mental Status: mental status grossly normal Affect: Blunted affect present Attitude: cooperative Thought process: Normal thought process present Thought content: Suicidality present, no homicidality and Hallucination(s) present auditory and visual Insight: Fair insight present (Psych) Judgement: Fair judgement present (Psych) Medications Administered Generic Name Dose Route Start Last Admin Trade Name eBanq PRN Reason Stop Dose Admin Clonazepam 0.5 mg 11/14/22 12:05 11/14/22 12:16 Clonazepam 0.5 Mg Tablet PO 0.5 mg BID LISANDRA Administration Clonidine HCl 0.1 mg 11/13/22 21:38 11/13/22 22:36 Clonidine Hcl 0.1 Mg Tablet PO 0.1 mg BEDTIME LISANDRA Administration Protocol Clozapine 500 mg 11/13/22 21:38 11/13/22 22:31 Clozapine 100 Mg Tablet PO 500 mg BEDTIME LISANDRA Administration Lamotrigine 100 mg 11/13/22 21:38 11/13/22 22:37 Lamotrigine 100 Mg Tablet PO 100 mg BEDTIME LISANDRA Administration Melatonin 9 mg 11/13/22 21:38 11/13/22 23:37 Melatonin 3 Mg Tablet PO 9 mg BEDTIME PRN Administration Insomnia Risperidone 1 mg 11/13/22 21:38 11/14/22 09:53 Risperidone 1 Mg Tablet PO 1 mg BID LISANDRA Administration Trazodone HCl 100 mg 11/13/22 21:38 11/13/22 22:38 Trazodone Hcl 100 Mg Tablet PO 100 mg BEDTIME LISANDRA Administration Discontinued Medications Generic Name Dose Route Start Last Admin Trade Name [place] PRN Reason Stop Dose Admin Lorazepam 1 mg 11/13/22 21:38 11/14/22 09:53 Lorazepam 1 Mg Tablet PO 1 mg BID PRN Administration Anxiety Medical Decision Making Medical Decision Making [facility] Narrative: Patient is a 37-year-old female with history of schizophrenia, PTSD, psychosis, polysubstance abuse presenting to the emergency department with report of auditory and visual hallucinations for the past several weeks. On exam patient is awake, A+Ox3, BP elevated, VS otherwise WNL, afebrile, normal neurological exam without focal deficits, reporting auditory hallucinations to kill herself, visual hallucinations, physical exam as above. Given reported symptoms and physical exam findings, initial differential includes auditory hallucination, visual hallucination, schizophrenia, schizoaffective disorder. Plan for care team eval once medically cleared. 16:01 patient medically cleared at this time for care team evaluation, placed on physician observation pending disposition. Differential Diagnosis Differential Diagnoses: The differential diagnosis associated with the presentation includes As per MDM. Admission/Observation Consideration of admission/observation: Escalation of care including admission/observation considered Lab Data [facility] Lab Attestation statement: I reviewed the patient's lab results. No acute abnormalities. 11/13/22 15:23 11/13/22 15:23 Labs: Lab Results 11/13/22 11/13/22 11/13/22 Range/Units 14:41 15:23 15:34 WBC 6.3 (4.8-10.8) X10*3/uL RBC 4.42 (4.20-5.50) X10*6/uL Hgb 12.8 (12.0-16.0) g/dl Hct 39.7 (37.0-47.0) % MCV 89.8 (80.0-98.0) fL MCH 29.0 (27.0-33.0) pg MCHC 32.2 (31.0-35.0) g/dl RDW 14.7 (11.0-16.0) % Plt Count 279 (160-400) X10*3/uL MPV 11.1 (9.4-12.3) fL Immature Gran % (Auto) 0.6 H (0.0-0.4) % Neut % (Auto) 65.2 (45-73) % Lymph % (Auto) 27.6 (20-40) % [place] % (Auto) 4.9 (2-11) % Eos % (Auto) 0.6 (0-4) % Baso % (Auto) 1.1 (0-2) % Lymph # (Auto) 1.7 (1.2-4.9) X10*3/uL [place] # (Auto) 0.3 (0.1-1.2) X10*3/uL Eos # (Auto) 0.0 (0.0-0.4) X10*3/uL Baso # (Auto) 0.1 (0.0-0.2) X10*3/uL Abs Immat Gran (auto) 0.04 H (0.00-0.03) X10*3/uL Absolute Neuts (auto) 4.1 (2.0-8.3) x10*3/uL Absolute Nucleated RBC 0.000 (0.0-0.012) X10*3/uL Nucleated RBC % (auto) 0.0 (0.0-0.2) /100WBC Sodium 141 (135-145) mmol/L Potassium 4.0 (3.3-5.1) mmol/L Chloride 107 (96-108) mmol/L Carbon Dioxide 19 L (22-29) mmol/L Anion Gap 19 (12-20) BUN 9 (9-16) mg/dL Creatinine 0.88 (0.5-1.4) mg/dL Estim Creat Clear Calc 102.7 Estimated GFR > 60 Random Glucose 208 H (60-115) mg/dL Calcium 10.9 H D (8.4-10.2) mg/dL Total Bilirubin 0.3 (0.0-1.0) mg/dL AST 14 (5-31) U/L ALT 14 (0-31) U/L Alkaline Phosphatase 83 (39-117) U/L Total Protein 7.5 (6.5-8.0) g/dL Albumin 4.9 (3.5-5.0) g/dL Urine Color Yellow Urine Appearance Clear Urine pH 6.0 (5.0-9.0) Ur Specific [place] 1.020 (1.005-1.025) Urine Protein Trace (Neg-Trace) mg/dL Urine Glucose (UA) Negative (Negative) mg/dL Urine Ketones 15 (Negative) mg/dL Urine Blood Trace H (Negative) Urine Nitrite Negative (Negative) Ur Leukocyte Esterase Trace H (Negative) Urine RBC 6-10 H (0-2) /HPF Urine WBC 0-5 (0-5) /HPF Ur Squamous Epith Cells 3-5 (0-2) /HPF Urine Bacteria Trace (None Seen) Hyaline Casts 0-2 (0-2) /LPF Urine Test NEGATIVE (NEGATIVE) Salicylates < 5.0 L (15-30) mg/dL Urine Opiates Screen Not Detected (Not Detect) Urine Fentanyl Screen Not Detected (Not Detect) Acetaminophen < 17 (<30) mcg/mL Ur Barbiturates Screen Not Detected (Not Detect) Ur Phencyclidine Scrn Not Detected (Not Detect) Ur Amphetamines Screen Not Detected (Not Detect) U Benzodiazepines Scrn Not Detected (Not Detect) Urine Cocaine Screen Not Detected (Not Detect) U Marijuana (THC) Screen Not Detected (Not Detect) Ethyl Alcohol < 10 mg/dL COVID-19 (SHIREEN) Negative (Negative) COVID-19 Clin Com See Note External Record Review External record reviewed: Inpatient record, Office record and Outpatient record Discharge Plan Discharge Clinical Impression: Auditory hallucinations Patient Disposition: Admitted As Inpatient Interventions: [place]-Suicide Risk Severity Scale Last Done: 11/14/22 04:37 Admission Worksheet (ED) Last Done: 11/13/22 21:32 Discharge Date/Time: 11/13/22 21:34
[2022-11-13 14:48] LABS: Appearance Urine Clear; Color Urine Yellow; Glucose Urine UA Negative (Negative); Leukocyte Esterase Urine Trace (Negative); Nitrite Urine Negative (Negative); UMIC TRIGGER UACC YES; Urine Blood Trace (Negative); Urine Ketones 15 mg/dL (Negative); Urine Protein Trace mg/dL (Neg-Trace)
[2022-11-13 14:54] LABS: Amphetamine Screen Urine Not Detected (Not Detect); Barbiturates, Urine Not Detected (Not Detect); Benzodiazepines Screen Urine Not Detected (Not Detect); Cannabinoid Screen Urine Not Detected (Not Detect); Cocaine Screen Urine Not Detected (Not Detect); Fentanyl, urine Not Detected (Not Detect); Opiate Screen Urine Not Detected (Not Detect); Phencyclidine Screen Urine Not Detected (Not Detect)
[2022-11-13 15:03] LABS: Bacteria Urine Trace (None Seen); Hyaline Casts Urine 0-2 /LPF (0-2); WBC Urine 0-5 /HPF (0-5)
[2022-11-13 15:34] LABS: MANUAL DIFF FLAG NO
[2022-11-13 15:35] LABS: Basophils Absolute Auto 0.1 X10*3/uL (0.0-0.2); Basophils Percent Auto 1.1 % (0-2); Eosinophils Percent Auto 0.6 % (0-4); Hematocrit 39.7 % (37.0-47.0); Hemoglobin 12.8 g/dl (12.0-16.0); Imm Gran Abs Auto 0.04 X10*3/uL (0.00-0.03); Imm Gran Pct Auto 0.6 % (0.0-0.4); Lymphocytes Absolute Auto 1.7 X10*3/uL (1.2-4.9); Lymphocytes Percent Auto 27.6 % (20-40); Mean Corpuscular HGB Conc 32.2 g/dl (31.0-35.0); Mean Corpuscular Volume 89.8 fL (80.0-98.0); Mean Platelet Volume 11.1 fL (9.4-12.3); Monocytes Absolute Auto 0.3 X10*3/uL (0.1-1.2); Monocytes Percent Auto 4.9 % (2-11); Neutrophils Absolute Auto 4.1 x10*3/uL (2.0-8.3); Neutrophils Percent Auto 65.2 % (45-73); Platelet Count 279 X10*3/uL (160-400); Red Blood Count 4.42 X10*6/uL (4.20-5.50); Red Cell Distribution Width 14.7 % (11.0-16.0); White Blood Count 6.3 X10*3/uL (4.8-10.8)
[2022-11-13 15:52] LABS: Acetaminophen LAB < 17 mcg/mL (<30); Salicylate < 5.0 mg/dL (15-30)
[2022-11-13 15:56] LABS: Alanine Aminotransferase 14 U/L (0-31); Albumin Level 4.9 g/dL (3.5-5.0); Alkaline Phosphatase 83 U/L (39-117); Anion Gap 19 (12-20); Aspartate Amino Transferase 14 U/L (5-31); Bilirubin Total 0.3 mg/dL (0.0-1.0); Blood Urea Nitrogen 9 mg/dL (9-16); Calcium 10.9 mg/dL (8.4-10.2); Carbon Dioxide 19 mmol/L (22-29); Chloride 107 mmol/L (96-108); Creatinine Clr Calc Pharmacy 102.7; Estimated Glomerular Filt Rate > 60; Ethanol < 10 mg/dL; Glucose Random 208 mg/dL (60-115); Sodium 141 mmol/L (135-145); Total Protein 7.5 g/dL (6.5-8.0)
[2022-11-13 15:56] LABS: COVID-19 Test Negative (Negative); IDNOW Serial# BCCEAD1C
[2022-11-13 17:19] LABS: UPreg QC Valid YES; Urine Pregnancy NEGATIVE (NEGATIVE)
--- NOTE | 2022-11-13 18:30 | PHA.MEDREC ---
Pharmacy Consult ? Medication Reconciliation Pharmacy has completed the medication reconciliation. SPOKE TO PT TO CONFIRM MEDICATIONS. SHE WAS ABLE TO LIST NAMES OF MEDICATIONS AND WHEN SHE TAKES THEM.
--- OUTSIDE RECORDS SUMMARY | 2022-11-13 18:39 | XMS_ITS | Continuity of Care Document ---
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 Name Role Phone Not on Staff, PCP Primary Care Physician Unavail able [place] [facility] [place]/22 [facility] [address] [place] [id number]- Allergies, Adverse Reactions, Alerts Substance Reaction Severity Status Haldol Active Medications ARIPiprazole 30 mg oral tablet 1 tablet = 30 mg, By Mouth, Daily, 0 Refills, Maintenance, 03/06/17 11:19:35 Start Date: 03/06/17 Status: Ordered benztropine 1 mg oral tablet 1 mg, 1, tablet, By Mouth, 2 times a day, Refills 0, Maintenance, 03/06/17 11:21:17 Start Date: 03/06/17 Status: Ordered FLUoxetine 20 mg oral capsule 20 mg, 1, capsule, By Mouth, Daily, Refills 0, Maintenance, 03/06/17 11:18:13 Start Date: 03/06/17 Status: Ordered hydrOXYzine pamoate 50 mg oral capsule 1 capsule = 50 mg, By Mouth, 2 times a day, PRN as needed for anxiety, 0 Refills, Maintenance, 03/06/17 11:50:29 Start Date: 03/06/17 Status: Ordered LORazepam 1 mg oral tablet 1 tablet = 1 mg, By Mouth, 2 times a day, PRN as needed for anxiety, 0 Refills, Maintenance, 03/06/17 11:52:28 Start Date: 03/06/17 Status: Ordered Mirena 52 mg intrauteral device 1 each = 52 mg, Once, For contraception, 0 Refills, Maintenance, 03/06/17 12:18:15 Start Date: 03/06/17 Status: Ordered perphenazine 4 mg oral tablet 6 mg, 1.5, tablet, By Mouth, 2 times a day, PRN, # 90 tablet, Refills 0, Tot. Refills 0, Maintenance, Psychosis, 03/10/17 14:20:04, Route to Pharmacy Electronically, [id number], [facility]/pharmacy #[id number] Start Date: 03/10/17 Status: Ordered prazosin 2 mg oral capsule 1 capsule = 2 mg, By Mouth, Daily at bedtime, # 30 capsule, 0 Refills, Maintenance, 03/19/17 11:29:12, Capsule Start Date: 03/19/17 Status: Ordered traZODone 100 mg oral tablet 150 mg, 1.5, tablet, By Mouth, Daily at bedtime, PRN, # 45 tablet, Refills 0, Tot. Refills 0, Maintenance, Insomnia, 03/19/17 11:30:09, Route to Pharmacy Electronically, [id number], [facility]/pharmacy #[id number] Start Date: 03/19/17 Status: Ordered Social History Social History Type Response Smoking Status Never smoker entered on: 03/06/17 Sex Patient Care team information Care Team Personnel Name: Not on Staff, PCP Position: [facility] Physician (General Medicine) Member Role: PCP Care Team Related Persons Name: CESIA SWANSON Address: home [address] [place] [id number]
[2022-11-13] MEDS: cloZAPine 100 MG TABLET 500 MG PO (22:31)
[2022-11-13] MEDS: cloNIDine HCL 0.1 MG TABLET PO (22:36)
[2022-11-13] MEDS: risperiDONE 1 MG TABLET PO (22:37)
[2022-11-13] MEDS: lamoTRIgine 100 MG TABLET PO (22:37)
[2022-11-13] MEDS: traZODone HCL 100 MG TABLET PO (22:38)
[2022-11-13 23:03] VITALS: BP 124/92; PULSE 99; RESP 18; TEMP 36.5; O2SAT 16
[2022-11-13 23:11] VITALS: BMI 37.8
[2022-11-13] MEDS: Melatonin 3 MG TABLET 9 MG PO (23:37)
--- NOTE | 2022-11-14 01:43 | PC.ADMIT ---
Daysi Abdi is a 37yo female who presented to [facility] due to hearing voices[ auditory hallucination] that are telling her to harm herself. Pt reported feeling depressed, anxious and overwhelmed. Pt states I am hearing a man with a deep voice that is telling me to harm myself and I also sees shadows of people who are trying to take my brain and turn me into an AI . She reported self harm by banging her head on the wall because the voices told her to do so. She disclosed that the voices are telling her to end her life by hanging herself in the basement, OD on medications, or jump off the bridge. She is alert, oriented x4, calm and cooperative with admission process. Pt still hear voices to hurt self but will not act on it, but denies HI. She is Meds compliant and verbalized being safe on the unit. Treatment plan and safety tools initiated.
[2022-11-14 09:20] VITALS: BP 113/70; PULSE 81; RESP 18; TEMP 36.3; O2SAT 97
[2022-11-14] MEDS: risperiDONE 1 MG TABLET PO ×2 (09:53→21:36)
[2022-11-14] MEDS: LORazepam 1 MG TABLET PO (09:53)
[2022-11-14] MEDS: clonazePAM 0.5 MG TABLET PO ×2 (12:16→21:36)
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
[2022-11-14 18:00] VITALS: BP 117/76; PULSE 95; RESP 18; TEMP 36.9; O2SAT 98
[2022-11-14] MEDS: cloNIDine HCL 0.1 MG TABLET PO (20:48)
[2022-11-14] MEDS: lamoTRIgine 100 MG TABLET PO (21:37)
[2022-11-14] MEDS: cloZAPine 100 MG TABLET 500 MG PO (21:37)
[2022-11-14] MEDS: traZODone HCL 100 MG TABLET PO (21:37)
[2022-11-15] MEDS: risperiDONE 1 MG TABLET PO ×2 (09:38→21:28)
[2022-11-15] MEDS: clonazePAM 0.5 MG TABLET PO ×3 (09:38→21:29)
[2022-11-15 10:52] VITALS: BP 111/78; PULSE 91; TEMP 36.6; O2SAT 98
[2022-11-15] MEDS: bisacodyL 5 MG TABLET.DR 10 MG PO (16:06)
[2022-11-15] MEDS: Acetaminophen 325 MG TABLET 650 MG PO (19:40)
[2022-11-15] MEDS: Magnesium Hydrox/Alum Hydrox 30 ML ORAL.SUSP PO (19:40)
[2022-11-15 21:16] VITALS: BP 121/73; PULSE 95; RESP 16; TEMP 36.9; O2SAT 97
[2022-11-15] MEDS: cloZAPine 100 MG TABLET 500 MG PO (21:28)
[2022-11-15] MEDS: cloNIDine HCL 0.1 MG TABLET PO (21:29)
[2022-11-15] MEDS: lamoTRIgine 100 MG TABLET PO (21:29)
[2022-11-15] MEDS: traZODone HCL 100 MG TABLET PO (21:29)
--- NOTE | 2022-11-15 22:50 | HO.PSYCHPN ---
Subjective Subjective Date of Service: 11/15/22 Reason For Visit: psychosis Interim History: scheduled klonopin helping her feel calmer. slows everything down. states they are now just whispers, background noise. she adds, the man with the deep voice is not talking anymore. asks to have her and 7 and 12 yo children visit, which is denied per protocol (kids, not ). per staff, flat, guarded, anxious. med-compliant. not attending groups. Mental Status Exam Mental Status Exam Narrative: Adequately dressed and groomed.? Cooperative. PMR.? Speech decr rate, amount, loudness, tone. incr latency.? Thoughts linear.? Affect blunted, hypo-intense, non-labile.? Diagnostics Vital Signs (24Hr): Vital Signs - 24 hr 11/15/22 10:52 11/15/22 21:16 Temperature 97.8 F 98.5 F Pulse Rate 91 95 Respiratory Rate 16 Blood Pressure 111/78 121/73 Pulse Oximetry 98 97 Oxygen Delivery Method Room Air Room Air BMI result Body Mass Index 37.8 Labs 11/13/22 15:23 11/13/22 15:23 Medications Medications Current Medications Acetaminophen (Acetaminophen 325 Mg Tablet) 650 mg PO Q6H PRN PRN Reason: Headache/Pain Mild Scale (1-3) Last Admin: 11/15/22 19:40 Dose: 650 mg Al Hydroxide/Mg Hydroxide (Magnesium Hydrox/Alum Hydrox 30 Ml Oral.Susp) 30 ml PO Q6H PRN PRN Reason: Heartburn/Nausea Last Admin: 11/15/22 19:40 Dose: 30 ml Bisacodyl (Bisacodyl 5 Mg Tablet.) 10 mg PO DAILY PRN PRN Reason: Constipation Last Admin: 11/15/22 16:06 Dose: 10 mg Clonazepam (Clonazepam 0.5 Mg Tablet) 0.5 mg PO BID LISANDRA Last Admin: 11/15/22 21:29 Dose: 0.5 mg Clonazepam (Clonazepam 0.5 Mg Tablet) 0.5 mg PO DAILY PRN PRN Reason: severe anxiety Last Admin: 11/15/22 16:12 Dose: 0.5 mg Clonidine HCl (Clonidine Hcl 0.1 Mg Tablet) 0.1 mg PO BEDTIME LISANDRA; Protocol Last Admin: 11/15/22 21:29 Dose: 0.1 mg Clozapine (Clozapine 100 Mg Tablet) 500 mg PO BEDTIME LISANDRA Last Admin: 11/15/22 21:28 Dose: 500 mg Lamotrigine (Lamotrigine 100 Mg Tablet) 100 mg PO BEDTIME LISANDRA Last Admin: 11/15/22 21:29 Dose: 100 mg Magnesium Hydroxide (Milk Of Magnesia 30 Ml Oral.Susp) 30 ml PO DAILY PRN PRN Reason: Constipation Melatonin (Melatonin 3 Mg Tablet) 9 mg PO BEDTIME PRN PRN Reason: Insomnia Last Admin: 11/13/22 23:37 Dose: 9 mg Nicotine Polacrilex (Nicotine Polacrilex 2 Mg Gum) 4 mg BUCCAL Q2H PRN PRN Reason: Nicotine Cravings Risperidone (Risperidone 1 Mg Tablet) 1 mg PO BID LISANDRA Last Admin: 11/15/22 21:28 Dose: 1 mg Trazodone HCl (Trazodone Hcl 100 Mg Tablet) 100 mg PO BEDTIME LISANDRA Last Admin: 11/15/22 21:29 Dose: 100 mg Trazodone HCl (Trazodone Hcl 50 Mg Tablet) 50 mg PO BEDTIME MRX1 PRN PRN Reason: Insomnia Allergies Allergies Allergy/AdvReac Type Severity Reaction Status Date / Time haloperidol [From HALDOL] AdvReac Unknown EYES Verified 10/07/21 16:11 ROLLED BACK Assessment & Plan Assessment & Plan (1) PTSD (post-traumatic stress disorder): Status: Acute Code(s): F43.10 - Post-traumatic stress disorder, unspecified (2) Obesity: Status: Acute Code(s): E66.9 - Obesity, unspecified Plan 11/14: continue home meds aside from the following: DC ativan. start klonopin 0.5 BID with 0.5 mg daily PRN. 11/15: continue current mgmt. stable, anxiety improved, AH improved, psychic distress improved. Reason for continued inpatient stay Substantial Risk for: harm to self, inability to function and rapid decompensation Time Spent With Patient Time: Total time managing care of this patient today ____ minutes.
[2022-11-16 09:15] VITALS: BP 106/67; PULSE 88; RESP 16; TEMP 37.1; O2SAT 96
[2022-11-16] MEDS: clonazePAM 0.5 MG TABLET PO ×2 (09:16→20:16)
[2022-11-16] MEDS: risperiDONE 1 MG TABLET PO ×2 (09:16→20:16)
--- NOTE | 2022-11-16 16:27 | HO.PSYCHPN ---
Subjective Subjective Date of Service: 11/16/22 Reason For Visit: psychosis Interim History: calm, cooperative. states she is depressed, having SI independent of AH. they are just whispers now. feels the klonopin is quite helpful. per staff, irritable, negative. CAH to hurt self. declining PRNs. Mental Status Exam Mental Status Exam Narrative: Adequately dressed and groomed.? Cooperative. PMR.? Speech decr rate, amount, loudness, tone. incr latency.? Thoughts linear.? Affect blunted, hypo-intense, non-labile.? Diagnostics Vital Signs (24Hr): Vital Signs - 24 hr 11/15/22 21:16 11/16/22 09:15 Temperature 98.5 F 98.7 F Pulse Rate 95 88 Respiratory Rate 16 16 Blood Pressure 121/73 106/67 Pulse Oximetry 97 96 Oxygen Delivery Method Room Air Room Air BMI result Body Mass Index 37.8 Labs 11/13/22 15:23 11/13/22 15:23 Medications Medications Current Medications Acetaminophen (Acetaminophen 325 Mg Tablet) 650 mg PO Q6H PRN PRN Reason: Headache/Pain Mild Scale (1-3) Last Admin: 11/15/22 19:40 Dose: 650 mg Al Hydroxide/Mg Hydroxide (Magnesium Hydrox/Alum Hydrox 30 Ml Oral.Susp) 30 ml PO Q6H PRN PRN Reason: Heartburn/Nausea Last Admin: 11/15/22 19:40 Dose: 30 ml Bisacodyl (Bisacodyl 5 Mg Tablet.Dr) 10 mg PO DAILY PRN PRN Reason: Constipation Last Admin: 11/15/22 16:06 Dose: 10 mg Clonazepam (Clonazepam 0.5 Mg Tablet) 0.5 mg PO BID LISANDRA Last Admin: 11/16/22 09:16 Dose: 0.5 mg Clonazepam (Clonazepam 0.5 Mg Tablet) 0.5 mg PO DAILY PRN PRN Reason: severe anxiety Last Admin: 11/15/22 16:12 Dose: 0.5 mg Clonidine HCl (Clonidine Hcl 0.1 Mg Tablet) 0.1 mg PO BEDTIME LISANDRA; Protocol Last Admin: 11/15/22 21:29 Dose: 0.1 mg Clozapine (Clozapine 100 Mg Tablet) 500 mg PO BEDTIME LISANDRA Last Admin: 11/15/22 21:28 Dose: 500 mg Lamotrigine (Lamotrigine 100 Mg Tablet) 100 mg PO BEDTIME LISANDRA Last Admin: 11/15/22 21:29 Dose: 100 mg Magnesium Hydroxide (Milk Of Magnesia 30 Ml Oral.Susp) 30 ml PO DAILY PRN PRN Reason: Constipation Melatonin (Melatonin 3 Mg Tablet) 9 mg PO BEDTIME PRN PRN Reason: Insomnia Last Admin: 11/13/22 23:37 Dose: 9 mg Nicotine Polacrilex (Nicotine Polacrilex 2 Mg Gum) 4 mg BUCCAL Q2H PRN PRN Reason: Nicotine Cravings Risperidone (Risperidone 1 Mg Tablet) 1 mg PO BID [facility] Last Admin: 11/16/22 09:16 Dose: 1 mg Trazodone HCl (Trazodone Hcl 100 Mg Tablet) 100 mg PO BEDTIME LISANDRA Last Admin: 11/15/22 21:29 Dose: 100 mg Trazodone HCl (Trazodone Hcl 50 Mg Tablet) 50 mg PO BEDTIME MRX1 PRN PRN Reason: Insomnia Allergies Allergies Allergy/AdvReac Type Severity Reaction Status Date / Time haloperidol [From HALDOL] AdvReac Unknown EYES Verified 10/07/21 16:11 ROLLED BACK Assessment & Plan Assessment & Plan (1) PTSD (post-traumatic stress disorder): Status: Acute Code(s): F43.10 - Post-traumatic stress disorder, unspecified (2) Obesity: Status: Acute Code(s): E66.9 - Obesity, unspecified Plan 11/14: continue home meds aside from the following: DC ativan. start klonopin 0.5 BID with 0.5 mg daily PRN. 11/15: continue current mgmt. stable, anxiety improved, AH improved, psychic distress improved. 11/16: stable. depressed, SI. CAH improved very much, however, with klonopin. Reason for continued inpatient stay Substantial Risk for: harm to self, inability to function and rapid decompensation Time Spent With Patient Time: Total time managing care of this patient today ____ minutes.
[2022-11-16 18:00] VITALS: BP 118/72; PULSE 100; RESP 15; TEMP 36.6; O2SAT 97
[2022-11-16] MEDS: cloZAPine 100 MG TABLET 500 MG PO (20:15)
[2022-11-16] MEDS: lamoTRIgine 100 MG TABLET PO (20:16)
[2022-11-16] MEDS: traZODone HCL 100 MG TABLET PO (20:16)
[2022-11-16] MEDS: cloNIDine HCL 0.1 MG TABLET PO (20:17)
[2022-11-17 08:52] VITALS: BP 134/88; PULSE 85; RESP 16; TEMP 36.8; O2SAT 98
[2022-11-17] MEDS: risperiDONE 1 MG TABLET PO ×2 (08:53→21:03)
[2022-11-17] MEDS: clonazePAM 0.5 MG TABLET PO ×2 (08:53→21:03)
--- NOTE | 2022-11-17 14:37 | HO.PSYCHPN ---
Subjective Subjective Date of Service: 11/17/22 Reason For Visit: psychosis Interim History: pt reports she is doing not too good. she says, sometimes i get tired of seeing shadow people and hearing voices. it gets too loud and i need a break. she is unable to describe what this break might be and how it might be helpful for her. she then asks, did nurse kirby ask about me moving to ? MD informs her that moving [facility] that way is very unusual and only done for compelling clinical reasons. she was informed there was no such reason for her to move to , and therefore there would be no such plans. she denied any change in medications mgmt and indicated she would need time to convalesce. per staff, anx/dep 11/25. CAH to bang head. remained safe. Mental Status Exam Mental Status Exam Narrative: Adequately dressed and groomed.? Cooperative. PMR.? Speech decr rate, amount, loudness, tone. incr latency.? Thoughts linear.? Affect blunted, hypo-intense, non-labile.? Diagnostics Vital Signs (24Hr): Vital Signs - 24 hr 11/16/22 18:00 11/17/22 08:52 Temperature 97.8 F 98.3 F Pulse Rate 100 85 Respiratory Rate 15 16 Blood Pressure 118/72 134/88 Pulse Oximetry 97 98 Oxygen Delivery Method Room Air Room Air BMI result Body Mass Index 37.8 Labs 11/13/22 15:23 11/13/22 15:23 Medications Medications Current Medications Acetaminophen (Acetaminophen 325 Mg Tablet) 650 mg PO Q6H PRN PRN Reason: Headache/Pain Mild Scale (1-3) Last Admin: 11/15/22 19:40 Dose: 650 mg Al Hydroxide/Mg Hydroxide (Magnesium Hydrox/Alum Hydrox 30 Ml Oral.Susp) 30 ml PO Q6H PRN PRN Reason: Heartburn/Nausea Last Admin: 11/15/22 19:40 Dose: 30 ml Bisacodyl (Bisacodyl 5 Mg Tablet.Dr) 10 mg PO DAILY PRN PRN Reason: Constipation Last Admin: 11/15/22 16:06 Dose: 10 mg Clonazepam (Clonazepam 0.5 Mg Tablet) 0.5 mg PO BID LISANDRA Last Admin: 11/17/22 08:53 Dose: 0.5 mg Clonazepam (Clonazepam 0.5 Mg Tablet) 0.5 mg PO DAILY PRN PRN Reason: severe anxiety Last Admin: 11/15/22 16:12 Dose: 0.5 mg Clonidine HCl (Clonidine Hcl 0.1 Mg Tablet) 0.1 mg PO BEDTIME LISANDRA; Protocol Last Admin: 11/16/22 20:17 Dose: 0.1 mg Clozapine (Clozapine 100 Mg Tablet) 500 mg PO BEDTIME LISANDRA Last Admin: 11/16/22 20:15 Dose: 500 mg Lamotrigine (Lamotrigine 100 Mg Tablet) 100 mg PO BEDTIME LISANDRA Last Admin: 11/16/22 20:16 Dose: 100 mg Magnesium Hydroxide (Milk Of Magnesia 30 Ml Oral.Susp) 30 ml PO DAILY PRN PRN Reason: Constipation Melatonin (Melatonin 3 Mg Tablet) 9 mg PO BEDTIME PRN PRN Reason: Insomnia Last Admin: 11/13/22 23:37 Dose: 9 mg Nicotine Polacrilex (Nicotine Polacrilex 2 Mg Gum) 4 mg BUCCAL Q2H PRN PRN Reason: Nicotine Cravings Risperidone (Risperidone 1 Mg Tablet) 1 mg PO BID LISANDRA Last Admin: 11/17/22 08:53 Dose: 1 mg Trazodone HCl (Trazodone Hcl 100 Mg Tablet) 100 mg PO BEDTIME LISANDRA Last Admin: 11/16/22 20:16 Dose: 100 mg Trazodone HCl (Trazodone Hcl 50 Mg Tablet) 50 mg PO BEDTIME MRX1 PRN PRN Reason: Insomnia Allergies Allergies Allergy/AdvReac Type Severity Reaction Status Date / Time haloperidol [From HALDOL] AdvReac Unknown EYES Verified 10/07/21 16:11 ROLLED BACK Assessment & Plan Assessment & Plan (1) PTSD (post-traumatic stress disorder): Status: Acute Code(s): F43.10 - Post-traumatic stress disorder, unspecified (2) Obesity: Status: Acute Code(s): E66.9 - Obesity, unspecified Plan 11/14: continue home meds aside from the following: DC ativan. start klonopin 0.5 BID with 0.5 mg daily PRN. 11/15: continue current mgmt. stable, anxiety improved, AH improved, psychic distress improved. 11/16: stable. depressed, SI. CAH improved very much, however, with klonopin. 11/17: reporting as if worse than prior, appears as prior. declines change in medications. asking for transfer to , which is declined. planning for thursday discharge. Reason for continued inpatient stay Substantial Risk for: inability to function and rapid decompensation Time Spent With Patient Time: Total time managing care of this patient today __25__ minutes.
[2022-11-17 20:03] VITALS: BP 156/68; PULSE 99; RESP 18; TEMP 36.6; O2SAT 98
[2022-11-17] MEDS: cloZAPine 100 MG TABLET 500 MG PO (21:02)
[2022-11-17] MEDS: cloNIDine HCL 0.1 MG TABLET PO (21:03)
[2022-11-17] MEDS: lamoTRIgine 100 MG TABLET PO (21:03)
[2022-11-17] MEDS: traZODone HCL 100 MG TABLET PO (21:03)
[2022-11-17 21:04] VITALS: BP 119/81; PULSE 96
[2022-11-18] MEDS: clonazePAM 0.5 MG TABLET PO ×3 (08:40→21:08)
[2022-11-18] MEDS: risperiDONE 1 MG TABLET PO ×2 (08:40→21:09)
[2022-11-18 08:42] VITALS: BP 102/59; PULSE 81; RESP 20; TEMP 36.6; O2SAT 95
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
[2022-11-18 21:05] VITALS: BP 119/80; PULSE 96; RESP 18; TEMP 36.8; O2SAT 96
[2022-11-18] MEDS: cloZAPine 100 MG TABLET 500 MG PO (21:08)
[2022-11-18] MEDS: lamoTRIgine 100 MG TABLET PO (21:08)
[2022-11-18] MEDS: Melatonin 3 MG TABLET 9 MG PO (21:08)
[2022-11-18] MEDS: traZODone HCL 100 MG TABLET PO (21:08)
[2022-11-18] MEDS: cloNIDine HCL 0.1 MG TABLET PO (21:09)
[2022-11-19 08:00] VITALS: BP 110/74; PULSE 85; RESP 16; TEMP 36.2; O2SAT 94
[2022-11-19] MEDS: clonazePAM 0.5 MG TABLET PO (08:05)
[2022-11-19] MEDS: risperiDONE 1 MG TABLET PO (08:05)
== END 2022-11-19 08:54 | disposition home or self-care (01) | DRG 755 ==
LOC: HO.ED 16:03 → HO.PADLT16 18:37
PROVIDERS: Registered Nurse Emergency; Admitting Provider Psychiatry & Neurology Psychiatry; Emergency Provider Emergency Medicine; PCP Internal Medicine; Visit Provider Psychiatry & Neurology Psychiatry
DX: F43.12 Post-traumatic stress disorder, chronic (principal); R45.851 Suicidal ideations; E66.9 Obesity, unspecified; Z68.37 Body mass index [BMI] 37.0-37.9, adult; Z20.822 Contact with and (suspected) exposure to COVID-19; Z79.899 Other long term (current) drug therapy
CPT/HCPCS: 36415; 80053; 80143; 80179; 80307; 81001; 81025; 85025; 87635; 99285

== ENCOUNTER → 2022-11-13 18:33 | Outpatient (BNV) | payer BC, SELFPAY | PROVIDERS: Admitting Provider Psychiatry & Neurology Psychiatry; Emergency Provider Emergency Medicine; PCP Internal Medicine; Visit Provider Psychiatry & Neurology Psychiatry | DX: F43.11 Post-traumatic stress disorder, acute (principal); E66.9 Obesity, unspecified | CPT/HCPCS: 90792; 99231; 99239 ==

== ENCOUNTER 2022-12-13 12:19 | Outpatient (REF) | payer BC, SELFPAY ==
[2022-12-13 13:43] LABS: MANUAL DIFF FLAG NO
[2022-12-13 14:08] LABS: Basophils Absolute Auto 0.1 X10*3/uL (0.0-0.2); Basophils Percent Auto 1.2 % (0-2); Eosinophils Absolute Auto 0.1 X10*3/uL (0.0-0.4); Eosinophils Percent Auto 1.6 % (0-4); Hematocrit 39.8 % (37.0-47.0); Hemoglobin 13.4 g/dl (12.0-16.0); Imm Gran Abs Auto 0.02 X10*3/uL (0.00-0.03); Imm Gran Pct Auto 0.3 % (0.0-0.4); Lymphocytes Absolute Auto 2.1 X10*3/uL (1.2-4.9); Lymphocytes Percent Auto 31.3 % (20-40); Mean Corpuscular HGB Conc 33.7 g/dl (31.0-35.0); Mean Corpuscular Hemoglobin 29.8 pg (27.0-33.0); Mean Corpuscular Volume 88.4 fL (80.0-98.0); Mean Platelet Volume 11.4 fL (9.4-12.3); Monocytes Absolute Auto 0.4 X10*3/uL (0.1-1.2); Monocytes Percent Auto 6.2 % (2-11); Neutrophils Percent Auto 59.4 % (45-73); Platelet Count 291 X10*3/uL (160-400); Red Cell Distribution Width 14.7 % (11.0-16.0); White Blood Count 6.8 X10*3/uL (4.8-10.8)
== END 2022-12-13 12:20 | disposition home or self-care (01) ==
LOC: HO.HMGCLR 12:19
PROVIDERS: Visit Provider Psychiatry & Neurology Psychiatry
DX: Z79.899 Other long term (current) drug therapy (principal)
CPT/HCPCS: 36415; 85025

== ENCOUNTER 2023-01-13 11:54 | Outpatient (REF) | payer BC, SELFPAY ==
[2023-01-13 13:27] LABS: MANUAL DIFF FLAG NO
[2023-01-13 13:45] LABS: Basophils Absolute Auto 0.1 X10*3/uL (0.0-0.2); Basophils Percent Auto 0.7 % (0-2); Eosinophils Absolute Auto 0.1 X10*3/uL (0.0-0.4); Eosinophils Percent Auto 1.8 % (0-4); Hematocrit 40.4 % (37.0-47.0); Hemoglobin 13.1 g/dl (12.0-16.0); Imm Gran Abs Auto 0.03 X10*3/uL (0.00-0.03); Imm Gran Pct Auto 0.4 % (0.0-0.4); Lymphocytes Absolute Auto 3.3 X10*3/uL (1.2-4.9); Lymphocytes Percent Auto 45.8 % (20-40); Mean Corpuscular HGB Conc 32.4 g/dl (31.0-35.0); Mean Corpuscular Hemoglobin 29.2 pg (27.0-33.0); Mean Corpuscular Volume 90.2 fL (80.0-98.0); Mean Platelet Volume 11.4 fL (9.4-12.3); Monocytes Absolute Auto 0.5 X10*3/uL (0.1-1.2); Monocytes Percent Auto 6.5 % (2-11); Neutrophils Absolute Auto 3.2 x10*3/uL (2.0-8.3); Neutrophils Percent Auto 44.8 % (45-73); Platelet Count 281 X10*3/uL (160-400); Red Blood Count 4.48 X10*6/uL (4.20-5.50); Red Cell Distribution Width 14.8 % (11.0-16.0); White Blood Count 7.1 X10*3/uL (4.8-10.8)
== END 2023-01-13 11:55 | disposition home or self-care (01) ==
LOC: HO.HMGCLR 11:54
PROVIDERS: PCP Internal Medicine; Visit Provider Psychiatry & Neurology Psychiatry
DX: Z79.899 Other long term (current) drug therapy (principal)
CPT/HCPCS: 36415; 85025

== ENCOUNTER → 2023-01-30 08:45 | Outpatient (BNV) | payer BC, SELFPAY | PROVIDERS: Visit Provider Psychiatry & Neurology Psychiatry | DX: F25.1 Schizoaffective disorder, depressive type (principal); F43.10 Post-traumatic stress disorder, unspecified | CPT/HCPCS: 90792; 99213; 99214; 99499 ==

== ENCOUNTER 2023-01-30 09:09 | Outpatient (REF) | payer BC, SELFPAY ==
[2023-01-30 10:32] LABS: Estimated Average Glucose 128 mg/dL; Hemoglobin A1c % 6.1 % (<6.0)
[2023-01-30 10:39] LABS: Alanine Aminotransferase 21 U/L (0-31); Albumin Level 4.9 g/dL (3.5-5.0); Alkaline Phosphatase 87 U/L (39-117); Anion Gap 16 (12-20); Aspartate Amino Transferase 17 U/L (5-31); Bilirubin Total 0.4 mg/dL (0.0-1.0); Blood Urea Nitrogen 11 mg/dL (9-16); Calcium 10.7 mg/dL (8.4-10.2); Carbon Dioxide 23 mmol/L (22-29); Chloride 107 mmol/L (96-108); Cholesterol 280 mg/dL (<200); Estimated Glomerular Filt Rate > 60; Glucose Fasting 170 mg/dL (60-99); HDL Cholesterol 43 mg/dL (>40); Sodium 142 mmol/L (135-145); Total Protein 7.7 g/dL (6.5-8.0); Triglycerides 401 mg/dL (<150)
[2023-01-30 10:51] LABS: Syphilis Screen Nonreactive (Nonreactive)
[2023-01-30 10:56] LABS: Free T4 (Free Thyroxine) 1.05 ng/dL (0.71-1.85); Thyroid Stimulating Hormone 2.07 uIU/mL (0.32-4.0); Vitamin D 25-OH Total 9.6 ng/mL (>30)
[2023-01-30 10:58] LABS: Vitamin B12 457 pg/mL (200-900)
[2023-02-03 09:53] LABS: Lamotrigine Lamictal 3.9 mcg/mL (2.5-15.0)
[2023-02-05 06:14] LABS: Norclozapine 1304 mcg/L (25-400)
== END 2023-01-30 09:10 | disposition home or self-care (01) ==
LOC: HO.LAB 09:09
PROVIDERS: Visit Provider Psychiatry & Neurology Psychiatry
DX: F20.9 Schizophrenia, unspecified (principal); Z79.899 Other long term (current) drug therapy
CPT/HCPCS: 36415; 80053; 80061; 80159; 80175; 82306; 82607; 83036; 84439; 84443; 86780

== ENCOUNTER 2023-02-10 09:00 | Outpatient (RCR) | payer BC, SELFPAY ==
[2023-01-26 11:29] VITALS: BP 117/90; PULSE 97; TEMP 37.1
[2023-01-26 11:30] VITALS: BMI 39.1
--- NOTE | 2023-01-26 12:24 | PC.ADMIT ---
Patient is a 37 year old female who was referred to [facility] by her therapist. Patient holds a dx of Schizoaffective d/o and has a history of psychosis, paranoia, AH, VH. Patient has a history of inpatient level of care, Last hospitalization in 11/2022. According to Integrative Assessment prior to patient's last hospitalization she was experiencing command hallucinations to kill herself and was banging her head as the voices were telling her to. See integrative Assessment for more information. Patient currently is alert and oriented x4. She stated she is at [facility] because, I need something to get me up and going because i have been sleeping all day. I have been really depressed lately. Sometimes I hear voices that keep me up all night, they tell me negative things about myself things I should be doing and not doing . Asked if she was hearing vices now and she stated, I rather not say . Reports VH of shadow people . Reports paranoid thoughts when she hears an ambulance or people talking in a group. She denied SI or HI. I gave her a copy of her safety plan and reviewed it with her. On her safety plan she stated ways to make her environment safe is to get rid of extra medications. I asked her about this and she stated she gave them to her . Stated she has been spending much time in bed. She is calm and cooperative. Medications reconciled with patient's phamacy and per patient. She reports taking her medications as prescribed with the exception on Lamictal as she ran out of it. Last filled per pharmacy as 12/08/22 for one month supply. Pharmacy stated they deliver her medications to her home couldn't state why she did not get new prescription on Lamictal delivered however stated she sometimes does not answer her phone. Dr Johnson is aware.
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
--- NOTE | 2023-01-28 14:06 | HO.PHP ---
After the 11:35 group today, pt reported she was experiencing an increase in command auditory hallucinations telling her to jump off the [place] bridge. Pt denied intent, stated she was not going to act on it, I have kids . Pt acknowledged the voices are louder then previous days, believes the increase may be due to the large group discussion with peers, stating a lot of people talking at once has increased her symptoms in the past. Pt reports she is taking her medication as prescribed and has a supportive who also makes sure she takes her medication. Tank Farm Attendant met with patient again at 2:00pm to assess safety before leaving [facility] for the day. Pt reported feeling worried I would report her to the 'police' for telling me about the command hallucinations. With prompting pt described her AH's. Expressed the ability to reality test before acting on thoughts and concerns, and can distinguish the voices from people in her environment. Pt expressed insight into her illness and identified coping skills. Pt said she did not feel she needed a crisis evaluation at this time, stating she would let us know if her symptoms continued to increase and worsen. Pt was open with staff contacting her to inform him of her increase in symptoms. Tank Farm Attendant called North her while with Daysi. North wanted to know which symptoms increased and stated he would be with Daysi for the rest of the day and night and would support her in calling crisis if she needed it. Pt contracted with property underwriter to call crisis should she feel increased symptoms or intent to act on the commands. Pt stated it is her 's birthday today and they have plans to order-in food and spend time together at home. Pt was picked up my her friend Mahi who pt identifies as a support and will be dropped off at home.
--- NOTE | 2023-01-29 13:51 | HO.PHP ---
PHP staff member observed Daysi out in the hallway during group two, in which PHP staff member approached her to make sure she was well. Daysi disclosed that she is having auditory hallucinations at this time and just needed space. PHP staff explored SI,plan or intent. Daysi noted no concerns around SI,plan or intent and stated she just needs space and will rejoin the group when ready. PHP staff member was receptive.
--- NOTE | 2023-01-29 14:18 | HO.PHP ---
The client's case was reviewed and opened in treatment team.
--- NOTE | 2023-01-29 17:58 | P.PNPSP_ITS ---
Subjective Subjective Date of Service: 01/29/23 Reason For Visit: schizophrenia Interim History: Patient reports having struggles today with mood and voices. Her mood has been down, today she feels particularly tired. She reports that her functioning weighs heavily on her, and when she is not able to help out around the house or with the children, this causes more depression. Yesterday she had some trouble helping the children get ready for school, and subsequently was feeling suicidal due to CT-AH telling her she is unworthy and a stupid person and I should just kill myself or jump from a bridge . She admits the voices are still there today on and off . She denies any SI today but says the voices still mention that she is not a deserving . When asked if she can hear them presently she responds I'd rather not say . Upon inquiry she endorses that the voices tell her not to talk about them . She denies any suicidal intention or plan, she cites her and children as protective factors. She believes the AH and paranoia have been worse since she started the program. She says there are a lot of people here and that the groups can be overwhelming. We discuss whether PHP is the right place for her; or if she is feeling overstimulated by the environment, which may be destabilizing. She was able to pros and cons of being in the program. She feels she gains a lot from groups, she finds even being around the other people and listening to their issues as helpful. SHe also finds the daily structure helpful. On the other hand, being around unfamiliar people sets off a ot of social anxiety and experiences a lot of chatter around me...I keep thinking they (the other clients) are talking about me... I know it's just voices . She is apprehensive about making any changes to her antipsychotic medications. She notes she is already just managing the side effects from the medications and if we were to increase the dose she would be unable to control drooling all over myself . SHe also notes there were some issues with my blood in the past in regards to the CLozaril and is reluctant to make any changes. I assure her her ANC was wnl on her last lab draw in Dec. She is agreeable to rechecking labwork as I would also like to obtain HbA1c and other metabolic labs that were not ordered recently. For now she is agreeable to increasing the dose of Lexapro to help with the anxiety and depression, hopefully this will indirectly address the paranoia and voices. We agree to give her some more time to see if she can settle into the program and get more comfortable as she becomes with familiar with the new faces of clients and staff and adjust to the daily routines. She could also see about taking an addition 1/4 - 1/2 tablet of clonazepam in addition to the 1 tablet she takes in the morning which helps her feel calmer and perhaps could be furt her optimized. Patient says she is able to contract for safety and would not hesitate to reach out if she felt unsafe. She also notes having a very supportive who is very helpful to her. She reports beign compliant on medications. She contiues with Lamcital titration and is still at 25 mg/d. Sleep is fair.. Appetite intact but diet is variable. Energy often is low. ROS negative. Rates her depression at a 5 out 10 in severity and anxiety at a 4 out of 10 in severity (experiences both generalized and somatic type anxiety). Medication Compliance: Yes Side effects from medications: No Attending Groups: Yes Review of Systems Acute medical concerns: No Mental Status Exam Mental Status Exam Narrative: Alert, oriented, in no acute distress. Sweat pants, t-short. Adequate grooming.? Normal gait, no tics, tremors, dyskinesia, no psychomotor agitation or neurovegetative retardation. Calm, cooperative, anxious, guarded.? Intermittent eye contact. Mood is depressed. Affect flat. Speech is normal rate, low volume, low prosody. mild latency. Thought process is circumstantial, scattered, but? without illogicality or FOI/STEPHANIE. Thought content relevant to stressors, +paranoid ideation, no delusional content elicited or shared. +AH, +VH. ?Internally preoccupied and responding to internal stimuli. No thoughts of harming self or others. Cognition with remote and scattered memory impairment.. Sensorium clear. Insight fair. Judgment fair but adequate. Diagnostics Vital Signs (24Hr): BMI result Body Mass Index 39.1 Assessment & Plan Assessment & Plan (1) Schizoaffective disorder, depressive type: Status: Acute Code(s): F25.1 - Schizoaffective disorder, depressive type (2) PTSD (post-traumatic stress disorder): Status: Acute Code(s): F43.10 - Post-traumatic stress disorder, unspecified Plan Increase Lexapro to 15 mg qd cont risperidone 2 mg BID cont Clozaril 500 mg qhs cont Lamictal 25 mg qd (will incr by 25 mg/d q 2wks - previous dose of 200 mg/d) cont clonazepam 0.5 mg BID prn cont clonidine 0.1 mg qhs continue other regular medications Patient given lab slip, will check routine labs including metabolic labs HbA1c, lipid panel and vitamin D level continue to monitor Patient educated on: diagnosis, medication risk/benefits and substance abuse Informed Consent: understands Reason for contiued partial hosp. stay Substantial Risk for: inability to function, rapid decompensation and med/psych decompensation Certification I certify that partial hospital treatment is medically necessary due to the symptoms and problems resulting from the patient's mental illness and the failure to treat the patient at the partial hospital level of care would likely result in the patient requiring inpatient psychiatric care which could not be prevented at a less intensive level of care. Total time managing care of this patient today __30__ minutes. Discharge Plan Discharge Attending provider: Polina Johnson Medications: New metformin 500 mg tablet 500 mg PO DAILY Qty: 20 0RF lamotrigine 25 mg tablet See Rx Instructions .ROUTE .COMPLEX 14 Days Qty: 14 0RF Rx Instructions: take 1 tablet po daily for 2 weeks, then increase to 2 tablets po daily for 2 weeks, then increase to 3 tablets po daily ergocalciferol (vitamin D2) [Vitamin D2] 1,250 mcg (50,000 unit) capsule 1,250 mcg PO QWEEK Qty: 12 0RF niacinamide 750 mg tablet extended release 750 mg PO DAILY Qty: 30 0RF lamotrigine 25 mg tablet See Rx Instructions .ROUTE .COMPLEX 28 Days Qty: 60 0RF Rx Instructions: take 2 tablets (= 50 mg) po daily for 14 days, then increase to 3 tablets (= 75 mg) daily for 14 days Continued clozapine 100 mg tablet 100 mg PO DAILY Rx Instructions: Take with two 200 mg tabs for a total dose of 500 mg at HS. risperidone 2 mg tablet 2 mg PO BID clozapine 200 mg tablet 400 mg PO BEDTIME clonazepam 0.5 mg tablet 0.5 mg PO BID PRN (Reason: Anxiety) clonidine HCl 0.1 mg tablet 0.1 mg PO BEDTIME 7 Days Qty: 7 0RF Protocol: Hold for SBP< HOLD for SBP < : 90 trazodone 100 mg tablet 100 mg PO BEDTIME 30 Days Qty: 30 0RF Changed escitalopram oxalate 10 mg tablet 15 mg PO DAILY 30 Days Qty: 45 0RF No Action lamotrigine 200 mg tablet 200 mg PO DAILY Patient Comments: Last filled 12/09/22. When asked when last took she stated last night however when I asked her if she needed a refill as she last filled on 12/09/22 she stated she ran out of the medication. Dr Johnson is aware.
--- NOTE | 2023-02-02 20:52 | P.PNPSP_ITS ---
Subjective Subjective Date of Service: 02/02/23 Reason For Visit: schizophrenia Interim History: Patient seen for follow-up today. SHe reports an uneventful weekend. She reports her mood has pretty stable...feeling a little less depressed . She has been tolerating the increase in Lexapro last week to 15 mg qd, she denies any adverse effects. She also took an extra 1/2 tablet of the Klonopin, both at night and this AM. She says at night it makes her fall asleep. She says she is noticing that she is not as anxious this morning at the program and is also feeling like things are starting to become more familiar. She reports AH is OK, I think it's getting better, because I can better distinguish what's real and what's not real (voices). Groups are going ok she is not minding being in there with other people and enjoys listening . Overall she feels things are fine and although she recognizes she is not perfect she feels she has come a long way, noting that well before this screenplay writer met her, she used to really struggle with her mental health, compared to now. She reports sleep the past few nights was good and appetite is still okay but would like to start eating healthier. Endorses some passive SI earlier this morning, just a passing thought nothing serious... just the voices saying I shouldnt be here . She denies feeling they are overwhelming or overly problematic, she tries to focus on group discussion and ignores them. Medication Compliance: Yes Side effects from medications: No Attending Groups: Yes Review of Systems Acute medical concerns: No Mental Status Exam Mental Status Exam Narrative: Alert, oriented, in no acute distress. Sweat pants, t-short. Adequate grooming.? Normal gait, no tics, tremors, dyskinesia, no psychomotor agitation or neurovegetative retardation. Calm, cooperative, anxious, guarded.? Intermittent eye contact. Mood is depressed. Affect flat. Speech is normal rate, low volume, low prosody. mild latency. Thought process is circumstantial, scattered, but? without illogicality or FOI/STEPHANIE. Thought content relevant to stressors, +paranoid ideation, no delusional content elicited or shared. +AH, +VH. ?Internally preoccupied and responding to internal stimuli. No thoughts of harming self or others. Cognition with remote and scattered memory impairment.. Sensorium clear. Insight fair. Judgment fair but adequate. Diagnostics Vital Signs (24Hr): BMI result Body Mass Index 39.1 Assessment & Plan Assessment & Plan (1) Schizoaffective disorder, depressive type: Status: Acute Code(s): F25.1 - Schizoaffective disorder, depressive type (2) PTSD (post-traumatic stress disorder): Status: Acute Code(s): F43.10 - Post-traumatic stress disorder, unspecified (3) Vitamin D deficiency: Status: Acute Code(s): E55.9 - Vitamin D deficiency, unspecified (4) Pre-diabetes: Status: Acute Code(s): R73.03 - Prediabetes Plan continue with current treatment pending lab work continue to monitor Patient educated on: diagnosis and medication risk/benefits Informed Consent: understands Reason for contiued partial hosp. stay Substantial Risk for: inability to function, rapid decompensation and med/psych decompensation Certification I certify that partial hospital treatment is medically necessary due to the symptoms and problems resulting from the patient's mental illness and the failure to treat the patient at the partial hospital level of care would likely result in the patient requiring inpatient psychiatric care which could not be prevented at a less intensive level of care. Total time managing care of this patient today _30___ minutes. Discharge Plan Discharge Attending provider: Polina Johnson Medications: New metformin 500 mg tablet 500 mg PO DAILY Qty: 20 0RF lamotrigine 25 mg tablet See Rx Instructions .ROUTE .COMPLEX 14 Days Qty: 14 0RF Rx Instructions: take 1 tablet po daily for 2 weeks, then increase to 2 tablets po daily for 2 weeks, then increase to 3 tablets po daily ergocalciferol (vitamin D2) [Vitamin D2] 1,250 mcg (50,000 unit) capsule 1,250 mcg PO QWEEK Qty: 12 0RF niacinamide 750 mg tablet extended release 750 mg PO DAILY Qty: 30 0RF lamotrigine 25 mg tablet See Rx Instructions .ROUTE .COMPLEX 28 Days Qty: 60 0RF Rx Instructions: take 2 tablets (= 50 mg) po daily for 14 days, then increase to 3 tablets (= 75 mg) daily for 14 days Continued clozapine 100 mg tablet 100 mg PO DAILY Rx Instructions: Take with two 200 mg tabs for a total dose of 500 mg at HS. risperidone 2 mg tablet 2 mg PO BID clozapine 200 mg tablet 400 mg PO BEDTIME clonazepam 0.5 mg tablet 0.5 mg PO BID PRN (Reason: Anxiety) clonidine HCl 0.1 mg tablet 0.1 mg PO BEDTIME 7 Days Qty: 7 0RF Protocol: Hold for SBP< HOLD for SBP < : 90 trazodone 100 mg tablet 100 mg PO BEDTIME 30 Days Qty: 30 0RF Changed escitalopram oxalate 10 mg tablet 15 mg PO DAILY 30 Days Qty: 45 0RF No Action lamotrigine 200 mg tablet 200 mg PO DAILY Patient Comments: Last filled 12/09/22. When asked when last took she stated last night however when I asked her if she needed a refill as she last filled on 12/09/22 she stated she ran out of the medication. Dr Johnson is aware. Telehealth Telehealth Location of provider rendering services: other (private office) Location of patient: other ([facility]) Patient Identification confirmed using: Name, : Yes Telehealth method: video Patient verbally consented to treatment: Yes Minutes spent on Phone/Video with Pt.: 30
--- NOTE | 2023-02-03 21:20 | HO.PHPPROGNO ---
Subjective Subjective Date of Service: 02/03/23 Reason For Visit: schizophrenia Interim History: Daysi complaining of fatigue, feeling sleepy in groups this AM. SHe took a whole tablet of clonazepam which does help with anxiety, however overall she says her anxiety is a little better as she becomes more familiar with her surroundings here at [facility]. We discuss halfing the dose to see if this helps, and if that doesn't help she could try moving the escitalopram to later in the day (since we recently increased the dose to 15 mg, perhaps this has caused some sedation). She says she will take notice and will review later in the week, to see if we can remedy this problem, otherwise we may need to reorganize her risperidone dosing schedule. Her mood is ok , denies any SI. she still presents as flat, but responding with a bit more spontaneity and less distrability to environment. She says she gets a lot out of groups, even when she is just listening. Today she is planning to leave early and spoke with stafff about this. Lab work reviewed from 01/30/23 with elevated FBG 170 and HbA1c 6.1. Dyslipidemia, LDL unreadable due to TG >400. TG disproportionately elevated which may be due to severe vitamin D deficiency. Will start supplementation with vit D2 and vit B3. CBC was not obtained. Last ANC 3.2 on 01/13/23. Medication Compliance: Yes Side effects from medications: Yes (perhaps, as noted above) Attending Groups: Yes Review of Systems Acute medical concerns: No no acute complaints, labs as noted above Mental Status Exam Mental Status Exam Narrative: Alert, oriented, in no acute distress.? Slow gait, no tics, tremors. Cooperative, less anxious, less guarded.? Intermittent eye contact. Mood is depressed. Affect flat. Speech is normal rate, low volume, low prosody. mild latency. Thought process linear, coherent, without illogicality or FOI/STEPHANIE. Thought content relevant to stressors, +negative symptoms +paranoia, +AH, +internal preoccupation but more attentive today, less distracted by internal stimuli. No delusional content elicited or shared. denies VH today. No thoughts of harming self or others. Cognition with remote and scattered memory impairment. Sensorium clear. Insight fair/good. Judgment fair but adequate. Diagnostics Vital Signs (24Hr): BMI result Body Mass Index 39.1 Assessment & Plan Assessment & Plan (1) Schizoaffective disorder, depressive type: Status: Acute Code(s): F25.1 - Schizoaffective disorder, depressive type (2) PTSD (post-traumatic stress disorder): Status: Acute Code(s): F43.10 - Post-traumatic stress disorder, unspecified Plan reduce dose of clonazepam to 1/2 tablet during day (due to tiredness) - will consider further med adjustments (such as switching risperidone to 1mg in AM and 3 mg in PM) if reducing clonazepam doesn't remedy the problem start vitamin D2 50,000IU weekly (with food) for severe vit D deficiency start niacinamide ER 750 mg qd (better tolerated with food) preferably in evening to target hypertriglyceridemia continue metformin 500 mg qd (if tolerated may increase to BID) continue escitalopram 15 mg qd (may consider further titration to 20 mg/d) - to target depression, anxiety, ?negative symptoms continue lamotrigine 200 mg qd continue risperidone 2 mg BID continue clozapine 500 mg qhs continue trazodone 100 mg qhs PRN Lab work reviewed as noted above will review lifestyle and diet next visit will encourage patient to schedule PCP appointment for 8-12 weeks follow-up on vit d defic, dylipidemia, diabetes concerns Certification I certify that partial hospital treatment is medically necessary due to the symptoms and problems resulting from the patient's mental illness and the failure to treat the patient at the partial hospital level of care would likely result in the patient requiring inpatient psychiatric care which could not be prevented at a less intensive level of care. Total time managing care of this patient today ____ minutes. Discharge Plan Discharge Attending provider: Polina Johnson Medications: New metformin 500 mg tablet 500 mg PO DAILY Qty: 20 0RF lamotrigine 25 mg tablet See Rx Instructions .ROUTE .COMPLEX 14 Days Qty: 14 0RF Rx Instructions: take 1 tablet po daily for 2 weeks, then increase to 2 tablets po daily for 2 weeks, then increase to 3 tablets po daily ergocalciferol (vitamin D2) [Vitamin D2] 1,250 mcg (50,000 unit) capsule 1,250 mcg PO QWEEK Qty: 12 0RF niacinamide 750 mg tablet extended release 750 mg PO DAILY Qty: 30 0RF Continued clozapine 100 mg tablet 100 mg PO DAILY Rx Instructions: Take with two 200 mg tabs for a total dose of 500 mg at HS. risperidone 2 mg tablet 2 mg PO BID clozapine 200 mg tablet 400 mg PO BEDTIME clonazepam 0.5 mg tablet 0.5 mg PO BID PRN (Reason: Anxiety) clonidine HCl 0.1 mg tablet 0.1 mg PO BEDTIME 7 Days Qty: 7 0RF Protocol: Hold for SBP< HOLD for SBP < : 90 trazodone 100 mg tablet 100 mg PO BEDTIME 30 Days Qty: 30 0RF Changed escitalopram oxalate 10 mg tablet 15 mg PO DAILY 30 Days Qty: 45 0RF No Action lamotrigine 200 mg tablet 200 mg PO DAILY Patient Comments: Last filled 12/09/22. When asked when last took she stated last night however when I asked her if she needed a refill as she last filled on 12/09/22 she stated she ran out of the medication. Dr Johnson is aware.
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
--- NOTE | 2023-02-06 21:53 | HO.PHPPROGNO ---
Subjective Subjective Date of Service: 02/06/23 Reason For Visit: schizophrenia Interim History: Patient seen to follow-up on medication changes form yesterday. She reports no decisions have been made in regards to her [id number] and where she is going to go. She is being evicted from her current place. is trying but the court has not been helpful in finding placement for his mother. He is considering bringing his mother to the ED and asking there. She reports that the voices have been loud and intrusive, especially since she is feeling distressed about current situation. She did receive the Seroquel and started on the Seroquel and so far she feels it has been helpful but only took it last night. She is encouraged to continue taking the Seroquel XR 50 mg twice a day, (in AM and evening). She can take an additional 50 mg XR as needed for agitation/voices. She agrees to do so. I also discuss bumping her Lamictal up to 50 mg, and informed her a refill was sent yesterday because she should almost be out of the 14 days of Lamictal I sent on admission when we had to restart the Lamictal after being off the medicaiton for at least 2 weeks on day of admission to [facility] and was noted to last fill the Abilify back in November (over 6 weeks ago). She says she did not receive the Lamictal from the pharmacy yesterday, but says she has plenty of tablets still. I question which bottle she is using and she reads that this is a bottle of Lamictal 200 mg tablets. She is unsure when she started back on them but had been taking one tablet a day like we discussed (presuming they were 25 mg tablets) I remind her that she should be on one tablet daily of 25 mg. I will call pharmacy and have the send her the 25 mg tablets and that she needs to stop the 200 mg tablets and take 25 mg tablets instead. She denies any rashes, she is aware of concerns for rash with restarting Lamictal at a high dose, and says she simply was unaware that she received 200 mg tablets instead of 25 mg tabs. I spoke with pharmacist at [facility] to inquire about the status on the Lamictal 25 mg #75 and to inform them that patient did not receive this script yesterday. Pharmacy reports that they received a refill for 200 mg tablets from patient's PCP on the same day they receive the initial order this ticket writer sent for 25 mg tabs #14 (from 2 weeks ago). Pharmacist says they did not fill the 25 mg tablet at the time since patient's PCP already ordered the 200 mg tablets and said they were familiar with Dr. Leahy, but did not know who I was. I asked why they did not clarify and Pharmacist said they could not locate a phone number to reach me (I checked with [facility] staff, email, tiger text, I never received a single message from [facility] in the past 2 weeks) so pharmacist refilled the 200 mg rx rather than filling the 25 mg tablet rx, even though Lamictal had not been filled since November (over 6 or 7 weeks ago). There was some pushback as I insisted pharmacy send patient the 25 mg tablets today, clarifying that I am the provider currently managing her medications at [facility], and that she should have been restarted on Lamictal at 25 mg when I sent the script 2 weeks ago since at the time she had been off the Lamcital for a number of weeks prior. [facility], again failed to send patient the 50 mg script I sent yesterday. If they had questions or concerns they could have called me, however they did not, despite, in fact, having my information including that [place] [facility] [place] Currently, there remains >3 hours before the end of the day when the pharmacy closes for the long holiday weekend and I informed them that I expect the patient to receive this script for 25 mg tablets by the end of the day. Pharmacist reluctantly agreed and said they will call patient and let them know as well. Medication Compliance: Yes Side effects from medications: No Attending Groups: Yes Review of Systems Acute medical concerns: No Mental Status Exam Mental Status Exam Narrative: Alert, oriented, in no acute distress.? Slow gait, no tics, tremors. Cooperative, less anxious, less guarded.? Intermittent eye contact. Mood is depressed. Affect flat. Speech is normal rate, low volume, low prosody. mild latency. Thought process linear, coherent, without illogicality or FOI/STEPHANIE. Thought content relevant to stressors, +negative symptoms +paranoia, +AH, +internal preoccupation but more attentive today, less distracted by internal stimuli. No delusional content elicited or shared. denies VH today. No thoughts of harming self or others. Cognition with remote and scattered memory impairment. Sensorium clear. Insight fair/good. Judgment fair but adequate. Diagnostics Vital Signs (24Hr): BMI result Body Mass Index 39.1 Assessment & Plan Assessment & Plan (1) Schizoaffective disorder, depressive type: Status: Acute Code(s): F25.1 - Schizoaffective disorder, depressive type (2) PTSD (post-traumatic stress disorder): Status: Acute Code(s): F43.10 - Post-traumatic stress disorder, unspecified Plan Patient is waiting to receive Lamcital 25 mg tablet and should start back at 25 mg /d. in lieu of 200 mg tablets. Encouraged to continue on Seroquel XR 50 mg BID-TID Continue on other medications Will plan to get trough level on clozapine next Thursday. Pt agrees to take CLozaril early on Thursday around 5pm, and will follow up with getting blookd work drawn at the end of the day around 4pm on Thursday. Continue to monitor closely Patient educated on: diagnosis, medication risk/benefits and substance abuse Informed Consent: understands Reason for contiued partial hosp. stay Substantial Risk for: inability to function, rapid decompensation and med/psych decompensation Certification I certify that partial hospital treatment is medically necessary due to the symptoms and problems resulting from the patient's mental illness and the failure to treat the patient at the partial hospital level of care would likely result in the patient requiring inpatient psychiatric care which could not be prevented at a less intensive level of care. Total time managing care of this patient today ____ minutes. Discharge Plan Discharge Attending provider: Polina Johnson Additional Instructions: [facility]: Dr Leahy 03/17/23, Malinda 02/18/23 Medications: New metformin 500 mg tablet 500 mg PO DAILY Qty: 20 0RF ergocalciferol (vitamin D2) [Vitamin D2] 1,250 mcg (50,000 unit) capsule 1,250 mcg PO QWEEK Qty: 12 0RF niacinamide 750 mg tablet extended release 750 mg PO DAILY Qty: 30 0RF Continued clozapine 100 mg tablet 100 mg PO DAILY Rx Instructions: Take with two 200 mg tabs for a total dose of 500 mg at HS. risperidone 2 mg tablet 2 mg PO BID clozapine 200 mg tablet 400 mg PO BEDTIME clonazepam 0.5 mg tablet 0.5 mg PO BID PRN (Reason: Anxiety) clonidine HCl 0.1 mg tablet 0.1 mg PO BEDTIME 7 Days Qty: 7 0RF Protocol: Hold for SBP< HOLD for SBP < : 90 trazodone 100 mg tablet 100 mg PO BEDTIME 30 Days Qty: 30 0RF Changed escitalopram oxalate 10 mg tablet 15 mg PO DAILY 30 Days Qty: 45 0RF quetiapine 50 mg tablet extended release 24 hr 50 mg PO TID PRN (Reason: agitation) Qty: 45 0RF Discontinued lamotrigine 200 mg tablet 200 mg PO DAILY Hold Instructions: until dose titrated back to 200 mg/d Patient Comments: Last filled 12/09/22. When asked when last took she stated last night however when I asked her if she needed a refill as she last filled on 12/09/22 she stated she ran out of the medication. Dr Johnson is aware. Stand Alone Forms: Patient Portal Discharge page Patient Education: Schizoaffective Disorder (DC)
--- NOTE | 2023-02-10 11:39 | PC.NURSE ---
Veronika is scheduled for discharge today. She met with Dr Johnson, who I spoke to, and reported she is stopping Lamictal d/t rash under Daysi's nose. Rash area is small one quarter the size of a dime and crusted over. She is covering it with a band aid. She reports she has had it for the past few days. Dr Johnson to reach out to Veronika's prescriber Dr Leahy to review. I reviewed Veronika's discharge medications with her and gave her a copy of her discharge paperwork. She appears to understand the medication instructions and reports taking them as prescribed. Denied SI or any safety concerns. Feels ready for discharge. She stated she hopes she doesn't fall into bad habits when she leaves, anxious regarding discharge. Talked about using coping skills that she has learned in the program.
--- NOTE | 2023-02-10 21:08 | HO.PHPPROGNO ---
Subjective Subjective Date of Service: 02/10/23 Reason For Visit: schizophrenia Interim History: Patient seen for follow-up. She anticipates discharge at the end of the program today. She reports having a good holiday with family, was relaxing and uneventful. She reports doing well with the addition of Seroquel. thanks it's been helpful SHe is taking it twice a day and diminishes the AH, less intrusive and sometimes not noticable for a short while. She took the CLozaril early yesterday, in the afternoon around 5pm, as we discussed and plans to get to the lab for blood draw today as close to 4pm when they close, to get a true trough level. She has no complaints. Currently she denies any hopelessness or SI, she notes that SI depends of the day..today it's been ok! She reports sleep, appetite are stable. ENergy still running low. She has her next appointment with Dr. Leahy sometime in February, she thinks. She will need to call and get the appointment date. SHe has a new PCP appointment in April. Patient is noted to have a bandaid under her nose on, on upper lip on right. She reveals a crusted sore, she is not sure how she got this and supposed it is a cold core. It has been present for past 2 days. We review her medication list and she reports being compliant on all her medications. When asked if she received the 25 mg tablets she said the pharmacy did not send her any. Unfortunately patient continued with taking 200 mg tablet because she simply didn't remember to stop them. I share my concern that she may have now developed a rash from yanna lamotrigine, certainly is suspicious with itchy lesion on face. She denies feeling unwell, denies any fever, chills, sore throat, cough, malaise. She agrees to stop the Lamcital and I ask that she collects it all and put it in a bag and tape it up and put it out of the way. She will likely remain off of the lamcital for some time, and will need to follow up with Dr. Leahy preferably in the next few days, to continue monitoring the rash, and for any emerging symptoms. She will also need to lab work to be followed up on. Fortunately she seems to be tolerating and benefitting from the Seroquel and this may provide some options should the Clozaril need to be reduced. I attempted to reach med per diem physical therapist assistant Candida at Dr. Leahy's office ([phone]). UNfortuantely they are off for the holiday. I left a VM message with updates regarding holding Lamcital for rash, and f/u on labwork. Refills sent. Patient was advised to reach out to her provider for a sooner appointment. She was encouraged to reach out to this provider for any questions, or concerns given her provider is away for the next couple of days. She is aware to go to urgent care, PCP or emergency room should rash worsen (I suggest she takes photos daily and keep bandaid off her face), or should patient develop flu-like symptoms. Instructions were written down. Patient agrees with plan. Medication Compliance: Yes Side effects from medications: Yes (as noted above (facial rash - concerning for SJS)) Attending Groups: Yes Review of Systems Acute medical concerns: Yes Mental Status Exam Mental Status Exam Narrative: Alert, oriented, in no acute distress.? Slow gait, no tics, tremors. Cooperative, less anxious, less guarded.? Intermittent eye contact. Mood is less depressed. Affect flat. Speech is normal rate, low volume, low prosody. mild latency. Thought process linear, coherent, without illogicality or FOI/STEPHANIE. Thought content relevant to stressors, +negative symptoms endorses less paranoia, less AH, more attentive today, less distracted by internal stimuli. No delusional content elicited or shared. denies VH today. No thoughts of harming self or others. Cognition with remote and scattered memory impairment. Sensorium clear. Insight fair/good. Judgment fair but adequate. Diagnostics Vital Signs (24Hr): BMI result Body Mass Index 39.1 Assessment & Plan Assessment & Plan (1) Schizoaffective disorder, depressive type: Status: Acute Code(s): F25.1 - Schizoaffective disorder, depressive type (2) PTSD (post-traumatic stress disorder): Status: Acute Code(s): F43.10 - Post-traumatic stress disorder, unspecified Plan Discharge from [facility] Hold Lamictal given facial rash concerning for SJS - patient is aware Patient will seek immediate medical attention if rash worsening or emerging symptoms fever, flu-like symptoms Pt encouraged to reach out to Dr. Leahy's office for earlier appointment to follow-up I left VM message for Dr. Leahy as well regarding updates about rash, holding Lamcital and pending labwork WIll defer ongoing medication management to outpatient provider For now will continue on remaining medications (other than Lamictal) continue Seroquel 50 mg TID continue Risperdal 2 mg BID continue Clozaril 500 mg qhs continue escitalopram 15 mg qd continue clonidine 0.05 mg BID (AM and afternoon) conitnue clonidine 0.1 mg qhs contiune trazodone 100 mg qhs PRN sleep continue metformin 500 mg qd niacinamide 750 mg qd vitamin d2 50,000 IU will be having blood draw this later afternoon for Clozaril level, ANC Patient educated on: diagnosis, medication risk/benefits and substance abuse Informed Consent: understands Reason for contiued partial hosp. stay Substantial Risk for: stable for discharge Certification I certify that partial hospital treatment is medically necessary due to the symptoms and problems resulting from the patient's mental illness and the failure to treat the patient at the partial hospital level of care would likely result in the patient requiring inpatient psychiatric care which could not be prevented at a less intensive level of care. Total time managing care of this patient today ____ minutes. Discharge Plan Discharge Attending provider: Polina Johnson Additional Instructions: [facility]: Dr Leahy 03/17/23, Malinda 02/18/23 Medications: New metformin 500 mg tablet 500 mg PO DAILY Qty: 20 0RF ergocalciferol (vitamin D2) [Vitamin D2] 1,250 mcg (50,000 unit) capsule 1,250 mcg PO QWEEK Qty: 12 0RF niacinamide 750 mg tablet extended release 750 mg PO DAILY Qty: 30 0RF Continued clozapine 100 mg tablet 100 mg PO DAILY Rx Instructions: Take with two 200 mg tabs for a total dose of 500 mg at HS. risperidone 2 mg tablet 2 mg PO BID clozapine 200 mg tablet 400 mg PO BEDTIME clonazepam 0.5 mg tablet 0.5 mg PO BID PRN (Reason: Anxiety) clonidine HCl 0.1 mg tablet 0.1 mg PO BEDTIME 7 Days Qty: 7 0RF Protocol: Hold for SBP< HOLD for SBP < : 90 trazodone 100 mg tablet 100 mg PO BEDTIME 30 Days Qty: 30 0RF Changed escitalopram oxalate 10 mg tablet 15 mg PO DAILY 30 Days Qty: 45 0RF quetiapine 50 mg tablet extended release 24 hr 50 mg PO TID PRN (Reason: agitation) Qty: 45 0RF Discontinued lamotrigine 200 mg tablet 200 mg PO DAILY Hold Instructions: until dose titrated back to 200 mg/d Patient Comments: Last filled 12/09/22. When asked when last took she stated last night however when I asked her if she needed a refill as she last filled on 12/09/22 she stated she ran out of the medication. Dr Johnson is aware. Stand Alone Forms: Patient Portal Discharge page Patient Education: Schizoaffective Disorder (DC) Telehealth Telehealth Location of provider rendering services: other (private office) Location of patient: other ([facility]) Patient Identification confirmed using: Name, : Yes Telehealth method: video
--- NOTE | 2023-02-15 09:05 | P.EN_ITS ---
Event Note Date of Service: 02/15/23 Event Note: Received notification from house [facility] regarding critical value of 1273 for patient's Clozapine, (which was drawn later in the day to more accurately reflect trough level). ANC is wnl 3.9. Dr. Leahy's office is closed for long Holiday weekend. Spoke with patient regarding labs, she agreed starting tonight to decrease dose of Clozaril to 300 mg qhs and increase HS dose of Seroquel to 200 mg. She is also encouraged to take an additional 50-100 mg Seroquel qhs PRN as needed for agitation. (I had her write this down on a paper). She has an appointment with Dr. Leahy next week. Also checked in regarding rash on her face, which has not changed or improved. She has picked at it. It is not worse. Denies pruritis or drainage. She keeps a bandaid on it periodically to avoid picking at it. Encouraged to use an antibiotic ointment. She assures me she has not been taking the lamotrigine and did remove them from her other medicaitons and put them in a seperate bag to avoid confusion. Aside from rash, she is otherwise feeling well. She has a new PCP appointment in April with Dr. Adams at [facility] and does not believe she can get in earlier. [facility] is aware is she develops any fever or flu-like symptoms to go to urgent care. I called Dr. Hollingsworth's office and left him a VM message regarding labwork and medication changes and ask that he follows up with patient on Thursday. Time Spent With Patient Time: Total time managing care of this patient today __15__ minutes.
== END 2023-02-10 23:59 | disposition home or self-care (01) ==
LOC: HO.PHPA 09:00
PROVIDERS: Visit Provider Psychiatry & Neurology Psychiatry
DX: F25.1 Schizoaffective disorder, depressive type (principal); F43.10 Post-traumatic stress disorder, unspecified; Z79.899 Other long term (current) drug therapy
CPT/HCPCS: 90791; 90853

== ENCOUNTER 2023-02-11 15:08 | Outpatient (REF) | payer BC, SELFPAY ==
[2023-02-11 16:10] LABS: MANUAL DIFF FLAG NO
[2023-02-11 16:22] LABS: Basophils Absolute Auto 0.1 X10*3/uL (0.0-0.2); Basophils Percent Auto 0.8 % (0-2); Eosinophils Absolute Auto 0.2 X10*3/uL (0.0-0.4); Eosinophils Percent Auto 2.2 % (0-4); Hematocrit 41.4 % (37.0-47.0); Hemoglobin 13.6 g/dl (12.0-16.0); Imm Gran Abs Auto 0.03 X10*3/uL (0.00-0.03); Imm Gran Pct Auto 0.4 % (0.0-0.4); Lymphocytes Absolute Auto 3.3 X10*3/uL (1.2-4.9); Lymphocytes Percent Auto 41.9 % (20-40); Mean Corpuscular HGB Conc 32.9 g/dl (31.0-35.0); Mean Corpuscular Hemoglobin 29.5 pg (27.0-33.0); Mean Corpuscular Volume 89.8 fL (80.0-98.0); Mean Platelet Volume 11.6 fL (9.4-12.3); Monocytes Absolute Auto 0.4 X10*3/uL (0.1-1.2); Monocytes Percent Auto 5.1 % (2-11); Neutrophils Absolute Auto 3.9 x10*3/uL (2.0-8.3); Neutrophils Percent Auto 49.6 % (45-73); Platelet Count 298 X10*3/uL (160-400); Red Blood Count 4.61 X10*6/uL (4.20-5.50); Red Cell Distribution Width 14.6 % (11.0-16.0); White Blood Count 7.8 X10*3/uL (4.8-10.8)
[2023-02-15 05:25] LABS: Norclozapine 1273 mcg/L (25-400)
--- NOTE | 2023-02-15 08:57 | PC.NURSE ---
Critical lab result received a call from chemistry at 0817 on 02/15/23 stating they were unable to get in touch with Dr. Kevin Leahy in regards to a critical clozapine level of [phone] left message with answering service at the counseling center to have provider call back patient discharged from our psych unit by wild [facility] and provider was contacted via [employer] at 0824 wild called back at 0833 stating she will contact patient and make med adjustments and leave a note for the provider
== END 2023-02-11 15:09 | disposition home or self-care (01) ==
LOC: HO.HMGCLDS 15:08
PROVIDERS: PCP Psychiatry & Neurology Psychiatry; Visit Provider Psychiatry & Neurology Psychiatry
DX: F25.9 Schizoaffective disorder, unspecified (principal); Z51.81 Encounter for therapeutic drug level monitoring
CPT/HCPCS: 80159; 85025

== ENCOUNTER 2023-03-16 11:24 | Outpatient (REF) | payer BC, SELFPAY ==
[2023-03-16 13:03] LABS: MANUAL DIFF FLAG NO
[2023-03-16 13:24] LABS: Basophils Absolute Auto 0.1 X10*3/uL (0.0-0.2); Basophils Percent Auto 0.7 % (0-2); Eosinophils Absolute Auto 0.1 X10*3/uL (0.0-0.4); Eosinophils Percent Auto 1.7 % (0-4); Hematocrit 38.4 % (37.0-47.0); Hemoglobin 12.8 g/dl (12.0-16.0); Imm Gran Abs Auto 0.03 X10*3/uL (0.00-0.03); Imm Gran Pct Auto 0.4 % (0.0-0.4); Lymphocytes Percent Auto 40.6 % (20-40); Mean Corpuscular HGB Conc 33.3 g/dl (31.0-35.0); Mean Corpuscular Hemoglobin 29.2 pg (27.0-33.0); Mean Corpuscular Volume 87.7 fL (80.0-98.0); Mean Platelet Volume 12.1 fL (9.4-12.3); Monocytes Absolute Auto 0.5 X10*3/uL (0.1-1.2); Monocytes Percent Auto 6.8 % (2-11); Neutrophils Absolute Auto 3.7 x10*3/uL (2.0-8.3); Neutrophils Percent Auto 49.8 % (45-73); Platelet Count 255 X10*3/uL (160-400); Red Blood Count 4.38 X10*6/uL (4.20-5.50); Red Cell Distribution Width 14.3 % (11.0-16.0); White Blood Count 7.5 X10*3/uL (4.8-10.8)
== END 2023-03-16 11:25 | disposition home or self-care (01) ==
LOC: HO.HMGCLR 11:24
PROVIDERS: Visit Provider Psychiatry & Neurology Psychiatry
DX: F25.0 Schizoaffective disorder, bipolar type (principal); Z79.899 Other long term (current) drug therapy
CPT/HCPCS: 36415; 85025

== ENCOUNTER 2023-04-11 13:05 | Outpatient (REF) | payer BC, SELFPAY ==
[2023-04-11 15:13] LABS: MANUAL DIFF FLAG NO
[2023-04-11 15:14] LABS: Basophils Absolute Auto 0.1 X10*3/uL (0.0-0.2); Eosinophils Absolute Auto 0.1 X10*3/uL (0.0-0.4); Eosinophils Percent Auto 1.8 % (0-4); Hematocrit 41.5 % (37.0-47.0); Hemoglobin 13.7 g/dl (12.0-16.0); Imm Gran Abs Auto 0.02 X10*3/uL (0.00-0.03); Imm Gran Pct Auto 0.3 % (0.0-0.4); Lymphocytes Absolute Auto 3.4 X10*3/uL (1.2-4.9); Lymphocytes Percent Auto 53.3 % (20-40); Mean Corpuscular Hemoglobin 29.1 pg (27.0-33.0); Mean Corpuscular Volume 88.3 fL (80.0-98.0); Mean Platelet Volume 11.6 fL (9.4-12.3); Monocytes Absolute Auto 0.4 X10*3/uL (0.1-1.2); Monocytes Percent Auto 5.9 % (2-11); Neutrophils Absolute Auto 2.4 x10*3/uL (2.0-8.3); Neutrophils Percent Auto 37.7 % (45-73); Platelet Count 267 X10*3/uL (160-400); Red Cell Distribution Width 14.6 % (11.0-16.0); White Blood Count 6.3 X10*3/uL (4.8-10.8)
== END 2023-04-11 13:06 | disposition home or self-care (01) ==
LOC: HO.HMGCLR 13:05
PROVIDERS: Visit Provider Psychiatry & Neurology Psychiatry
DX: F25.0 Schizoaffective disorder, bipolar type (principal); Z79.899 Other long term (current) drug therapy
CPT/HCPCS: 36415; 85025

== ENCOUNTER 2023-04-27 12:16 | Outpatient (REF) | payer BC, SELFPAY ==
[2023-04-27 13:03] LABS: MANUAL DIFF FLAG NO
[2023-04-27 13:23] LABS: Basophils Absolute Auto 0.1 X10*3/uL (0.0-0.2); Basophils Percent Auto 0.8 % (0-2); Eosinophils Absolute Auto 0.2 X10*3/uL (0.0-0.4); Eosinophils Percent Auto 2.1 % (0-4); Hematocrit 40.5 % (37.0-47.0); Hemoglobin 13.2 g/dl (12.0-16.0); Imm Gran Abs Auto 0.02 X10*3/uL (0.00-0.03); Imm Gran Pct Auto 0.3 % (0.0-0.4); Lymphocytes Absolute Auto 3.5 X10*3/uL (1.2-4.9); Lymphocytes Percent Auto 48.9 % (20-40); Mean Corpuscular HGB Conc 32.6 g/dl (31.0-35.0); Mean Corpuscular Hemoglobin 28.9 pg (27.0-33.0); Mean Corpuscular Volume 88.6 fL (80.0-98.0); Mean Platelet Volume 11.3 fL (9.4-12.3); Monocytes Absolute Auto 0.5 X10*3/uL (0.1-1.2); Monocytes Percent Auto 6.4 % (2-11); Neutrophils Percent Auto 41.5 % (45-73); Platelet Count 257 X10*3/uL (160-400); Red Blood Count 4.57 X10*6/uL (4.20-5.50); Red Cell Distribution Width 14.6 % (11.0-16.0); White Blood Count 7.2 X10*3/uL (4.8-10.8)
== END 2023-04-27 12:17 | disposition home or self-care (01) ==
LOC: HO.HMGCLR 12:16
PROVIDERS: Visit Provider Psychiatry & Neurology Psychiatry
DX: F25.0 Schizoaffective disorder, bipolar type (principal); Z79.899 Other long term (current) drug therapy
CPT/HCPCS: 36415; 85025

== ENCOUNTER 2023-05-11 18:37 | Inpatient (IN) | payer BC, SELFPAY ==
--- NOTE | 2023-05-11 18:54 | ED_ITS ---
HPI - General Adult General Chief complaint: Psychiatric Symptoms Stated complaint: suicidal Time Seen by Provider: 05/11/23 18:54 Source: patient Mode of arrival: ambulatory Limitations: no limitations History of Present Illness HPI narrative: Patient is a 38 year old assigned female at with a history of PTSD and schizoaffective disorder presenting to the emergency department today with suicidal ideation. Patient states that she is suicidal and has multiple plans. Patient was seen by [facility] in the community and they recommended the patient come here to be admitted inpatient. Patient denies any dizziness, lightheadedness, abdominal pain, nausea, vomiting, fever, chills, blurry vision, double vision, loss of vision, chest pain, difficulty breathing, shortness of breath, back pain, night sweats, pain with urination, increased urinary frequency, increased urinary urgency, blood in her urine or stool, syncope or a near syncopal episode, recent trauma or falls, bowel incontinence, bladder incontinence, bowel retention, bladder retention, or any other complaints at this time. Relieving factors: none Exacerbating factors: none Associated symptoms: denies other symptoms Treatments prior to arrival: none Related Data Home Medications Medication Instructions Recorded Confirmed clonazepam 0.5 mg tablet 0.5 mg PO BID PRN Anxiety 01/26/23 01/26/23 clozapine 100 mg tablet 100 mg PO DAILY 01/26/23 01/26/23 clozapine 200 mg tablet 400 mg PO BEDTIME 01/26/23 01/26/23 risperidone 2 mg tablet 2 mg PO BID 01/26/23 01/26/23 Previous Rx's Medication Instructions Recorded clonidine HCl 0.1 mg tablet 0.1 mg PO BEDTIME anxiety 7 days 11/19/22 #7 tabs trazodone 100 mg tablet 100 mg PO BEDTIME 30 days #30 tabs 11/19/22 ergocalciferol (vitamin D2) 1,250 1,250 mcg PO QWEEK #12 caps 02/04/23 mcg (50,000 unit) capsule (Vitamin D2) niacinamide 750 mg tablet,extended 750 mg PO DAILY with food #30 tabs 02/04/23 release quetiapine 50 mg tablet,extended 50 mg PO TID PRN agitation #45 tabs 02/10/23 release 24 hr Allergies Allergy/AdvReac Type Severity Reaction Status Date / Time haloperidol [From HALDOL] AdvReac Unknown EYES Verified 10/07/21 16:11 ROLLED BACK Review of Systems 2 Constitutional: Constitutional: Reports no additional constitutional complaints, Denies chills, Denies fever(s) and Denies night sweats Eyes: Eyes: Reports no additional eye complaints, Denies blurry vision, Denies change in vision, Denies diplopia, Denies eye discharge, Denies loss of vision and Denies eye pain ENT: Denies dizziness Cardiovascular: Cardiovascular: Reports no additional cardiovascular complaints, Denies chest pain, Denies lightheadedness, Denies Loss of Consciousness and Denies dyspnea Respiratory: Respiratory: Reports no additional respiratory complaints and Denies dyspnea Gastrointestinal: Gastrointestinal: Reports no additional gastrointestinal complaints, Denies abdominal pain, Denies melena, Denies hematochezia, Denies change in bowel habits and Denies change in stool character Genitourinary: Genitourinary: Denies hematuria, Denies urinary frequency, Denies dysuria, Denies urinary incontinence, Denies urinary hesitancy and Denies urinary urgency Musculoskeletal: Musculoskeletal: Reports no additional musculoskeletal complaints, Denies numbness and Denies tingling Neurologic: Denies dizziness, Denies loss of vision, Denies numbness and Denies tingling Psychiatric: Psychiatric: Reports no additional psychiatric complaints, Denies homicidal ideation and Reports suicidal ideation Endocrine: Endocrine: Reports no additional endocrine complaints Hematologic/Lymphatic: Hematologic/Lymphatic: Reports no additional hematologic/lymphatic complaints Allergic/Immunologic: Allergic/Immunologic: Reports no additional allergic/immunologic complaints [facility] Past Medical History Attestation statement: The following information was validated with the patient. Source: old records reviewed and nursing notes reviewed Medical History IBS (irritable bowel syndrome) Schizophrenia PTSD (post-traumatic stress disorder) Polysubstance abuse Psychosis Social History Social History Household Members: Spouse and Children Housing: Apartment Housing Other:: [facility] Do you presently have visiting nurse or other home services: No Alcohol intake: current Alcohol intake frequency: holidays/special occasions only Patient Tobacco Use Status: Never used Tobacco e-Cigarette/Vaping Use: Never Used Second Hand Smoke Exposure: No Substance Use Type: Caffiene Advance Directives: No Advance Directives Information Provided: No service: No Sexual orientation: Straight/Heterosexual Physical Exam ED Vital Signs: Vital Signs - 24 hr 05/11/23 19:20 Temperature 97.9 F Pulse Rate 110 H Respiratory Rate 18 Blood Pressure 147/100 H Pulse Oximetry 98 Oxygen Delivery Method Room Air BMI result Body Mass Index 29.0 Const General: cooperative, no acute distress, alert and awake Nutritional Appearance: well nourished Orientation/consciousness: patient oriented x3 Limitations: no limitations HENMT Head: Yes normal to inspection and Yes atraumatic Ears: hearing grossly normal bilaterally and external ears normal General nose exam: Normal external nose present, no nasal discharge noted and no epistaxis Face and sinus: Yes normal facial exam, No abrasion and No laceration Mouth: Normal oral and palatal mucosa present, no drooling and no muffled voice Eyes General: appearance normal, both eyes and all related structures Periorbital: periorbital findings normal Eyelids: Yes eyelids normal Conjunctivae: conjunctivae normal Pupils: Equal, round and reactive pupils present EOM: EOMs intact bilaterally Neck Neck: Yes normal visual inspection, Yes full ROM and Yes no lymphadenopathy Chest Chest palpation & inspection: normal inspection of the chest Resp Effort & Inspection: normal respiratory effort and able to speak in complete sentences GI Inspection: Yes normal to inspection Neuro General: patient oriented x3 and moves all extremities Cranial nerves: Yes Equal, round and reactive pupils present Cognition (Neuro): normal cognition Motor exam (neuro): 5/5 motor strength present throughout Sensory Exam: Normal double simultaneous stimulation for sensation Coordination: [id number] test normal Extrem General: Yes normal to inspection, Yes full ROM and Yes capillary refill normal Psych Appearance: grossly normal Mental Status: mental status grossly normal Attitude: Guarded attititude/behavior present and Avoids eye contact (attititude/behavior) Thought content: Suicidality present Medical Decision Making Medical Decision Making MDM Narrative: Patient is a 38 year old assigned female at with a history of schizoaffective disorder and PTSD presenting to the emergency department today with suicidal ideation. Patient's physical exam was as noted in the physical exam portion of this note. Patient's blood work was unremarkable. Patient's urine showed a possible UTI however, the patient has no complaints at this time. Will await treatment until culture returns. I explained my physical exam findings as well as all test results to the patient. I answered all questions asked by the patient. Patient awaiting CARE team evaluation. Differential Diagnosis Differential Diagnoses: The differential diagnosis associated with the presentation includes Suicidal ideation Psychosis Admission/Observation Consideration of admission/observation: Escalation of care including admission/observation considered Patient's disposition will be determined after CARE team evaluation. Lab Data [facility] Lab Attestation statement: I reviewed the patient's lab results. My interpretation of these results are in the [facility] Rationale portion of this note. 05/11/23 19:10 05/11/23 19:10 Labs: Lab Results 05/11/23 05/11/23 Range/Units 19:10 19:13 WBC 7.4 (4.8-10.8) X10*3/uL RBC 4.50 (4.20-5.50) X10*6/uL Hgb 12.9 (12.0-16.0) g/dl Hct 38.9 (37.0-47.0) % MCV 86.4 (80.0-98.0) fL MCH 28.7 (27.0-33.0) pg MCHC 33.2 (31.0-35.0) g/dl RDW 14.4 (11.0-16.0) % Plt Count 263 (160-400) X10*3/uL MPV 11.3 (9.4-12.3) fL Immature Gran % (Auto) 0.5 H (0.0-0.4) % Neut % (Auto) 63.1 (45-73) % Lymph % (Auto) 29.1 (20-40) % [place] % (Auto) 5.9 (2-11) % Eos % (Auto) 0.7 (0-4) % Baso % (Auto) 0.7 (0-2) % Lymph # (Auto) 2.2 (1.2-4.9) X10*3/uL [place] # (Auto) 0.4 (0.1-1.2) X10*3/uL Eos # (Auto) 0.1 (0.0-0.4) X10*3/uL Baso # (Auto) 0.1 (0.0-0.2) X10*3/uL Abs Immat Gran (auto) 0.04 H (0.00-0.03) X10*3/uL Absolute Neuts (auto) 4.7 (2.0-8.3) x10*3/uL Absolute Nucleated RBC 0.000 (0.0-0.012) X10*3/uL Nucleated RBC % (auto) 0.0 (0.0-0.2) /100WBC Sodium 143 (135-145) mmol/L Potassium 3.8 (3.3-5.1) mmol/L Chloride 109 H (96-108) mmol/L Carbon Dioxide 22 (22-29) mmol/L Anion Gap 16 (12-20) BUN 11 (9-16) mg/dL Creatinine 0.93 (0.5-1.4) mg/dL Estim Creat Clear Calc 89.2 Estimated GFR > 60 Random Glucose 230 H (60-115) mg/dL Calcium 10.8 H (8.4-10.2) mg/dL Total Bilirubin 0.4 (0.0-1.0) mg/dL AST 15 (5-31) U/L ALT 22 (0-31) U/L Alkaline Phosphatase 86 (39-117) U/L Total Protein 8.0 (6.5-8.0) g/dL Albumin 5.1 H (3.5-5.0) g/dL Beta HCG, Quant < 2 mIU/mL Urine Color Yellow Urine Appearance Clear Urine pH 5.5 (5.0-9.0) Ur Specific [place] >= 1.030 H (1.005-1.025) Urine Protein 30 (1+) H (Neg-Trace) mg/dL Urine Glucose (UA) 500 H (Negative) mg/dL Urine Ketones 15 (Negative) mg/dL Urine Blood Moderate (2+) H (Negative) Urine Nitrite Negative (Negative) Ur Leukocyte Esterase Trace H (Negative) Urine RBC 3-5 H (0-2) /HPF Urine WBC 6-10 H (0-5) /HPF Ur Squamous Epith Cells 6-10 (0-2) /HPF Urine Bacteria 1+ (None Seen) Hyaline Casts 0-2 (0-2) /LPF Salicylates < 5.0 L (15-30) mg/dL Urine Opiates Screen Not Detected (Not Detect) Urine Fentanyl Screen Not Detected (Not Detect) Acetaminophen < 3 (<30) mcg/mL Ur Barbiturates Screen Not Detected (Not Detect) Ur Phencyclidine Scrn Not Detected (Not Detect) Ur Amphetamines Screen Not Detected (Not Detect) U Benzodiazepines Scrn Not Detected (Not Detect) Urine Cocaine Screen Not Detected (Not Detect) U Marijuana (THC) Screen Not Detected (Not Detect) Ethyl Alcohol < 10 mg/dL COVID-19 (SHIREEN) Negative (Negative) COVID-19 Clin Com See Note Discharge Plan Discharge Clinical Impression: Suicidal ideation Patient Disposition: Still a Patient Prescriptions: No Action clozapine 100 mg tablet 100 mg PO DAILY Rx Instructions: Take with two 200 mg tabs for a total dose of 500 mg at HS. risperidone 2 mg tablet 2 mg PO BID clozapine 200 mg tablet 400 mg PO BEDTIME clonazepam 0.5 mg tablet 0.5 mg PO BID PRN (Reason: Anxiety) ergocalciferol (vitamin D2) [Vitamin D2] 1,250 mcg (50,000 unit) capsule 1,250 mcg PO QWEEK Qty: 12 0RF niacinamide 750 mg tablet extended release 750 mg PO DAILY Qty: 30 0RF quetiapine 50 mg tablet extended release 24 hr 50 mg PO TID PRN (Reason: agitation) Qty: 45 0RF clonidine HCl 0.1 mg tablet 0.1 mg PO BEDTIME 7 Days Qty: 7 0RF Protocol: Hold for SBP< HOLD for SBP < : 90 trazodone 100 mg tablet 100 mg PO BEDTIME 30 Days Qty: 30 0RF
[2023-05-11 19:17] LABS: MANUAL DIFF FLAG NO
[2023-05-11 19:20] VITALS: BP 147/100; PULSE 110; RESP 18; TEMP 36.6; O2SAT 98; BMI 29.0
[2023-05-11 19:23] LABS: Basophils Absolute Auto 0.1 X10*3/uL (0.0-0.2); Basophils Percent Auto 0.7 % (0-2); Eosinophils Absolute Auto 0.1 X10*3/uL (0.0-0.4); Eosinophils Percent Auto 0.7 % (0-4); Hematocrit 38.9 % (37.0-47.0); Hemoglobin 12.9 g/dl (12.0-16.0); Imm Gran Abs Auto 0.04 X10*3/uL (0.00-0.03); Imm Gran Pct Auto 0.5 % (0.0-0.4); Lymphocytes Absolute Auto 2.2 X10*3/uL (1.2-4.9); Lymphocytes Percent Auto 29.1 % (20-40); Mean Corpuscular HGB Conc 33.2 g/dl (31.0-35.0); Mean Corpuscular Hemoglobin 28.7 pg (27.0-33.0); Mean Corpuscular Volume 86.4 fL (80.0-98.0); Mean Platelet Volume 11.3 fL (9.4-12.3); Monocytes Absolute Auto 0.4 X10*3/uL (0.1-1.2); Monocytes Percent Auto 5.9 % (2-11); Neutrophils Absolute Auto 4.7 x10*3/uL (2.0-8.3); Neutrophils Percent Auto 63.1 % (45-73); Platelet Count 263 X10*3/uL (160-400); Red Cell Distribution Width 14.4 % (11.0-16.0); White Blood Count 7.4 X10*3/uL (4.8-10.8)
[2023-05-11 19:30] LABS: Appearance Urine Clear; Color Urine Yellow; Glucose Urine UA 500 mg/dL (Negative); Leukocyte Esterase Urine Trace (Negative); Nitrite Urine Negative (Negative); PH 5.5 (5.0-9.0); Specific Gravity - Urine >= 1.030 (1.005-1.025); UMIC TRIGGER UA YES; Urine Blood Moderate (2+) (Negative); Urine Ketones 15 mg/dL (Negative); Urine Protein 30 (1+) mg/dL (Neg-Trace)
[2023-05-11 19:36] LABS: Amphetamine Screen Urine Not Detected (Not Detect); Barbiturates, Urine Not Detected (Not Detect); Benzodiazepines Screen Urine Not Detected (Not Detect); Cannabinoid Screen Urine Not Detected (Not Detect); Cocaine Screen Urine Not Detected (Not Detect); Fentanyl, urine Not Detected (Not Detect); Opiate Screen Urine Not Detected (Not Detect); Phencyclidine Screen Urine Not Detected (Not Detect)
[2023-05-11 19:37] LABS: Acetaminophen LAB < 3 mcg/mL (<30); Salicylate < 5.0 mg/dL (15-30)
[2023-05-11 19:39] LABS: COVID-19 Test Negative (Negative); IDNOW Serial# 08D9AD1C
[2023-05-11 19:44] LABS: Alanine Aminotransferase 22 U/L (0-31); Albumin Level 5.1 g/dL (3.5-5.0); Alkaline Phosphatase 86 U/L (39-117); Anion Gap 16 (12-20); Aspartate Amino Transferase 15 U/L (5-31); Bilirubin Total 0.4 mg/dL (0.0-1.0); Blood Urea Nitrogen 11 mg/dL (9-16); Calcium 10.8 mg/dL (8.4-10.2); Carbon Dioxide 22 mmol/L (22-29); Chloride 109 mmol/L (96-108); Creatinine Clr Calc Pharmacy 89.2; Estimated Glomerular Filt Rate > 60; Ethanol < 10 mg/dL; Glucose Random 230 mg/dL (60-115); HCG Quantitative < 2 mIU/mL; Potassium 3.8 mmol/L (3.3-5.1); Sodium 143 mmol/L (135-145)
[2023-05-11 19:47] LABS: Bacteria Urine 1+ (None Seen); Hyaline Casts Urine 0-2 /LPF (0-2)
--- NOTE | 2023-05-11 20:58 | PHA.MEDREC ---
Pharmacy Consult ? Medication Reconciliation Pharmacy has reviewed the medication reconciliation completed by Pinky. Deepali Balbuena, AngelaD
[2023-05-11] MEDS: Ergocalciferol (Vitamin D2) 1,250 MCG CAPSULE 1250 MCG PO (21:13)
[2023-05-11] MEDS: cloZAPine 100 MG TABLET 500 MG PO (21:13)
[2023-05-11] MEDS: risperiDONE 2 MG TABLET PO (21:13)
[2023-05-11] MEDS: traZODone HCL 100 MG TABLET PO (21:14)
[2023-05-11] MEDS: clonazePAM 0.5 MG TABLET PO (22:55)
--- NOTE | 2023-05-12 07:36 | ECG_ITS ---
Test Reason : PRONLONG QTC Blood Pressure : / mmHG Vent. Rate : 091 BPM Atrial Rate : 091 BPM P-R Int : 126 ms QRS Dur : 090 ms QT Int : 350 ms P-R-T Axes : 042 015 013 degrees QTc Int : 430 ms Normal sinus rhythm Nonspecific T wave abnormality Abnormal ECG When compared with ECG of 13-NOV-2022 16:39, No significant change was found Referred By: Lalito Pennington Electronically Signed By:Gutierrez Alex
[2023-05-12] MEDS: risperiDONE 2 MG TABLET PO ×2 (08:36→21:36)
[2023-05-12 13:35] VITALS: BP 124/87; PULSE 93; RESP 16; TEMP 36.6; O2SAT 98
--- NOTE | 2023-05-12 16:00 | PC.NURSE ---
Pt refused Flu vaccine
[2023-05-12 16:17] VITALS: BMI 38.0
--- NOTE | 2023-05-12 16:19 | PC.ADMIT ---
Daysi is a 38 year old female that was admitted to at 1330 from [facility] pod on a 12b up on 05/14 for treatment of MDD unspecified. Per crisis evaluation pt reported that she was suicidal and had planned to take all her medication, jump off a bridge or hang herself in her basement. Upon arrival to the unit pt was calm, cooperative, alert and oriented. She was cooperative with admission process. Skin check was complete. Patient appeared guarded when answering assessment questions. When asked if she was experiencing hallucinations pt stated I'd rather not say. Affect is flat. Pt self reported medical hx of pre diabetes but is not taking any medication. Tox screen was negative. Pt denies SI while on the unit but will reach out to staff if thoughts occur. Pt placed on 15 minute checks for safety.
[2023-05-12] MEDS: Magnesium Hydrox/Alum Hydrox 30 ML ORAL.SUSP PO (19:12)
--- NOTE | 2023-05-12 19:29 | PC.NURSE ---
Addendum entered by Jeanette Rob RN 05/12/23 19:32: Per Dr. Ugarte repeat ekg ordered Original Note: Pt began complaining of chest discomfort. Vitals 130/70 HR 103 O2 97%, aware.
--- NOTE | 2023-05-12 19:30 | ECG_ITS ---
Test Reason : new onset chest pain Blood Pressure : / mmHG Vent. Rate : 101 BPM Atrial Rate : 101 BPM P-R Int : 124 ms QRS Dur : 082 ms QT Int : 326 ms P-R-T Axes : 054 017 026 degrees QTc Int : 422 ms Sinus tachycardia Nonspecific T wave abnormality Abnormal ECG When compared with ECG of 12-MAY-2023 11:45, No significant change was found Referred By: Lacho Ugarte Electronically Signed By:Gutierrez Alex
[2023-05-12 20:00] VITALS: BP 120/79; PULSE 102; RESP 18; TEMP 36.6; O2SAT 98
[2023-05-12] MEDS: cloZAPine 100 MG TABLET 500 MG PO (21:33)
[2023-05-12] MEDS: traZODone HCL 100 MG TABLET PO (21:35)
[2023-05-12] MEDS: clonazePAM 0.5 MG TABLET PO (21:35)
[2023-05-13] MEDS: risperiDONE 2 MG TABLET PO ×2 (08:36→21:06)
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
[2023-05-13] MEDS: hydrOXYzine HCL 25 MG TABLET PO (15:46)
[2023-05-13] MEDS: Milk of Magnesia 30 ML ORAL.SUSP PO (17:52)
[2023-05-13 20:30] VITALS: BP 125/91; PULSE 97; RESP 18; TEMP 36.6; O2SAT 98
[2023-05-13] MEDS: cloZAPine 100 MG TABLET 500 MG PO (21:05)
[2023-05-13] MEDS: traZODone HCL 100 MG TABLET PO (21:06)
[2023-05-13] MEDS: clonazePAM 0.5 MG TABLET PO (21:06)
[2023-05-14 06:00] VITALS: BP 95/52; PULSE 81; RESP 16; O2SAT 96
[2023-05-14] MEDS: clonazePAM 0.5 MG TABLET PO ×2 (08:46→21:33)
[2023-05-14] MEDS: risperiDONE 2 MG TABLET PO ×2 (08:46→21:33)
[2023-05-14] MEDS: PARoxetine HCL 20 MG TABLET PO (12:53)
[2023-05-14] MEDS: Docusate Sodium 100 MG CAPSULE PO ×2 (13:48→21:33)
--- NOTE | 2023-05-14 15:34 | P.PNPSI_ITS ---
Subjective Subjective Date of Service: 05/14/23 Reason For Visit: SI Interim History: calm, cooperative. c/o depression, options reviewed, including lithium, SSRI, wellbutrin. pt reports prior positive experience with paxil, agrees to restart at 20 mg daily. agrees to sign CV. per staff, 12b up tomorrow. Mental Status Exam Mental Status Exam Narrative: Adequately dressed and groomed.? Cooperative. PMR.? Speech decr rate, amount, loudness, tone. incr latency.? Thoughts linear.? Affect blunted, hypo-intense, non-labile.? endorsing AH. no SI/SIBI/VH expressed. Diagnostics Vital Signs (24Hr): Vital Signs - 24 hr 05/13/23 20:30 05/14/23 06:00 Temperature 97.8 F Pulse Rate 97 81 Respiratory Rate 18 16 Blood Pressure 125/91 H 95/52 L Pulse Oximetry 98 96 Oxygen Delivery Method Room Air Room Air BMI result Body Mass Index 38.0 Labs 05/11/23 19:10 05/11/23 19:10 Medications Medications Current Medications Acetaminophen (Acetaminophen 325 Mg Tablet) 650 mg PO Q6H PRN PRN Reason: Headache/Pain Mild Scale (1-3) Al Hydroxide/Mg Hydroxide (Magnesium Hydrox/Alum Hydrox 30 Ml Oral.Susp) 30 ml PO Q6H PRN PRN Reason: Heartburn/Nausea Last Admin: 05/12/23 19:12 Dose: 30 ml Clonazepam (Clonazepam 0.5 Mg Tablet) 0.5 mg PO BID [facility] Last Admin: 05/14/23 08:46 Dose: 0.5 mg Clozapine (Clozapine 100 Mg Tablet) 500 mg PO BEDTIME [facility] Last Admin: 05/13/23 21:05 Dose: 500 mg Docusate Sodium (Docusate Sodium 100 Mg Capsule) 100 mg PO BID [facility] Last Admin: 05/14/23 13:48 Dose: 100 mg Ergocalciferol (Ergocalciferol (Vitamin D2) 1,250 Mcg Capsule) 1,250 mcg PO Mo [facility] Last Admin: 05/11/23 21:13 Dose: 1,250 mcg Hydroxyzine HCl (Hydroxyzine Hcl 25 Mg Tablet) 25 mg PO Q6H PRN PRN Reason: Anxiety Last Admin: 05/13/23 15:46 Dose: 25 mg Magnesium Hydroxide (Milk Of Magnesia 30 Ml Oral.Susp) 30 ml PO DAILY PRN PRN Reason: Constipation Last Admin: 05/13/23 17:52 Dose: 30 ml Paroxetine HCl (Paroxetine Hcl 20 Mg Tablet) 20 mg PO DAILY [facility] Last Admin: 05/14/23 12:53 Dose: 20 mg Risperidone (Risperidone 2 Mg Tablet) 2 mg PO BID [facility] Last Admin: 05/14/23 08:46 Dose: 2 mg Trazodone HCl (Trazodone Hcl 100 Mg Tablet) 100 mg PO BEDTIME [facility] Last Admin: 05/13/23 21:06 Dose: 100 mg Trazodone HCl (Trazodone Hcl 50 Mg Tablet) 50 mg PO BEDTIME MRX1 PRN PRN Reason: Insomnia Allergies Allergies Allergy/AdvReac Type Severity Reaction Status Date / Time haloperidol [From HALDOL] AdvReac Unknown EYES Verified 10/07/21 16:11 ROLLED BACK Assessment & Plan Assessment & Plan (1) Suicidal ideation: Status: Acute Code(s): R45.851 - Suicidal ideations (2) Auditory hallucinations: Status: Acute Code(s): R44.0 - Auditory hallucinations (3) Schizoaffective disorder, depressive type: Status: Acute Code(s): F25.1 - Schizoaffective disorder, depressive type (4) PTSD (post-traumatic stress disorder): Status: Acute Code(s): F43.10 - Post-traumatic stress disorder, unspecified Plan 05/12: continue home medications regimen. allow time for reconstitution. discharge to home once stabilized. keep safe. 05/13: start paxil 20 mg daily for depression, as pt reports h/o good prior experience on it. pt reported she intended to sign CV, otherwise 12b up tomorrow and she will need to discharge. stable. modest improvement in Sx. Reason for continued inpatient stay Substantial Risk for: harm to self, inability to function and rapid decompensation Time Spent With Patient Time: Total time managing care of this patient today __25__ minutes.
[2023-05-14 20:30] VITALS: BP 141/74; PULSE 101; RESP 18; TEMP 36.7; O2SAT 97
[2023-05-14] MEDS: cloZAPine 100 MG TABLET 500 MG PO (21:32)
[2023-05-14] MEDS: traZODone HCL 100 MG TABLET PO (21:33)
[2023-05-15 06:00] VITALS: BP 115/66; PULSE 91; RESP 18; TEMP 36.8; O2SAT 97
[2023-05-15] MEDS: Docusate Sodium 100 MG CAPSULE PO ×2 (09:07→22:06)
[2023-05-15] MEDS: risperiDONE 2 MG TABLET PO (09:07)
[2023-05-15] MEDS: PARoxetine HCL 20 MG TABLET PO (09:07)
[2023-05-15] MEDS: clonazePAM 0.5 MG TABLET PO ×2 (09:07→22:06)
--- NOTE | 2023-05-15 16:29 | HO.PSYCHPN ---
Subjective Subjective Date of Service: 05/15/23 Reason For Visit: SI Interim History: appears much more tired today. medications interactions reviewed, decision made to DC paxil and start trial of zoloft instead to simplify regimen and minimize chances of complex drug-drug interactions causing confounding Sx. also discuss role of risperidone in pt's regimen, lack of change since it's addition, and risperidone taper begun. per staff, rather not say re SI. taking meds, appeared to have slept overnight. Mental Status Exam Mental Status Exam Narrative: Adequately dressed and groomed.? Cooperative. PMR.? Speech decr rate, amount, loudness, tone. incr latency.? Thoughts linear.? Affect blunted, hypo-intense, non-labile.? endorsing AH. no SI/SIBI/VH expressed. Diagnostics Vital Signs (24Hr): Vital Signs - 24 hr 05/14/23 20:30 05/15/23 06:00 Temperature 98.0 F 98.2 F Pulse Rate 101 H 91 Respiratory Rate 18 18 Blood Pressure 141/74 H 115/66 Pulse Oximetry 97 97 Oxygen Delivery Method Room Air Room Air BMI result Body Mass Index 38.0 Labs 05/11/23 19:10 05/11/23 19:10 Medications Medications Current Medications Acetaminophen (Acetaminophen 325 Mg Tablet) 650 mg PO Q6H PRN PRN Reason: Headache/Pain Mild Scale (1-3) Al Hydroxide/Mg Hydroxide (Magnesium Hydrox/Alum Hydrox 30 Ml Oral.Susp) 30 ml PO Q6H PRN PRN Reason: Heartburn/Nausea Last Admin: 05/12/23 19:12 Dose: 30 ml Clonazepam (Clonazepam 0.5 Mg Tablet) 0.5 mg PO BID [facility] Last Admin: 05/15/23 09:07 Dose: 0.5 mg Clozapine (Clozapine 100 Mg Tablet) 500 mg PO BEDTIME [facility] Last Admin: 05/14/23 21:32 Dose: 500 mg Docusate Sodium (Docusate Sodium 100 Mg Capsule) 100 mg PO BID [facility] Last Admin: 05/15/23 09:07 Dose: 100 mg Ergocalciferol (Ergocalciferol (Vitamin D2) 1,250 Mcg Capsule) 1,250 mcg PO Mo [facility] Last Admin: 05/11/23 21:13 Dose: 1,250 mcg Hydroxyzine HCl (Hydroxyzine Hcl 25 Mg Tablet) 25 mg PO Q6H PRN PRN Reason: Anxiety Last Admin: 05/13/23 15:46 Dose: 25 mg Magnesium Hydroxide (Milk Of Magnesia 30 Ml Oral.Susp) 30 ml PO DAILY PRN PRN Reason: Constipation Last Admin: 05/13/23 17:52 Dose: 30 ml Risperidone (Risperidone 1 Mg Tablet) 1 mg PO BID [facility] Sertraline HCl (Sertraline Hcl 25 Mg Tablet) 25 mg PO DAILY [facility] Trazodone HCl (Trazodone Hcl 100 Mg Tablet) 100 mg PO BEDTIME [facility] Last Admin: 05/14/23 21:33 Dose: 100 mg Trazodone HCl (Trazodone Hcl 50 Mg Tablet) 50 mg PO BEDTIME MRX1 PRN PRN Reason: Insomnia Allergies Allergies Allergy/AdvReac Type Severity Reaction Status Date / Time haloperidol [From HALDOL] AdvReac Unknown EYES Verified 10/07/21 16:11 ROLLED BACK Assessment & Plan Assessment & Plan (1) Suicidal ideation: Status: Acute Code(s): R45.851 - Suicidal ideations (2) Auditory hallucinations: Status: Acute Code(s): R44.0 - Auditory hallucinations (3) Schizoaffective disorder, depressive type: Status: Acute Code(s): F25.1 - Schizoaffective disorder, depressive type (4) PTSD (post-traumatic stress disorder): Status: Acute Code(s): F43.10 - Post-traumatic stress disorder, unspecified Plan 05/12: continue home medications regimen. allow time for reconstitution. discharge to home once stabilized. keep safe. 05/13: start paxil 20 mg daily for depression, as pt reports h/o good prior experience on it. pt reported she intended to sign CV, otherwise 12b up tomorrow and she will need to discharge. stable. modest improvement in Sx. 05/14: signed CV yesterday. slept late into afternoon today, paxil DCed and zoloft started to minimize problematic drug-drug interactions. begin risperidone taper by changing 2 BID to 1 BID as of tonight; pt perceives minimal benefit from it since it was added to regimen. Reason for continued inpatient stay Substantial Risk for: harm to self and inability to function Time Spent With Patient Time: Total time managing care of this patient today __35__ minutes.
[2023-05-15 20:05] VITALS: BP 125/80; PULSE 97; TEMP 36.6; O2SAT 96
[2023-05-15] MEDS: traZODone HCL 100 MG TABLET PO (22:05)
[2023-05-15] MEDS: cloZAPine 100 MG TABLET 500 MG PO (22:05)
[2023-05-15] MEDS: risperiDONE 1 MG TABLET PO (22:05)
[2023-05-16 06:00] VITALS: BP 113/72; PULSE 81; RESP 14; TEMP 36.4; O2SAT 95
[2023-05-16] MEDS: clonazePAM 0.5 MG TABLET PO ×2 (12:40→21:17)
[2023-05-16] MEDS: Docusate Sodium 100 MG CAPSULE PO ×2 (12:40→21:18)
[2023-05-16] MEDS: risperiDONE 1 MG TABLET PO ×2 (12:40→21:18)
[2023-05-16] MEDS: Sertraline HCL 25 MG TABLET PO (12:40)
--- NOTE | 2023-05-16 14:38 | P.PNPSI_ITS ---
Subjective Subjective Date of Service: 05/16/23 Reason For Visit: SI Subjective Notes: Conditional Voluntary Interim History: 38 yo reports ongoing AH, some si no plan will let staff know if feels unsafe lying in bed, back to provider- head turned- reports eating ok - slept 6 hrs according to nursing- so napping now REports recent change in medication so doesn't want any further change today even though ongoing sys- Medication Compliance: Yes Side effects from medications: No Attending Groups: No Review of Systems Acute medical concerns: No Mental Status Exam Mental Status Exam Patient Appearance: Fatigued and Inappropriate Patient Orientation: Person, Place and Situation Level of Consciousness: Drowsy Patient Behavior: Passive, Avoidant, Fatigued and Poor Eye Contact Mood Description: Withdrawn Affect Description: Blunted Patient Cognition Impaired: No Ability to Follow Directions: Fair Speech Pattern: Mumbled Hallucinations: Auditory Thought Process: Intact and Goal Oriented Thought Content: positive for [place] Depressive Symptoms: Thoughts of /Suicide Judgement: Fair Diagnostics Vital Signs (24Hr): Vital Signs - 24 hr 05/15/23 20:05 05/16/23 06:00 Temperature 97.8 F 97.5 F Pulse Rate 97 81 Respiratory Rate 14 Blood Pressure 125/80 113/72 Pulse Oximetry 96 95 Oxygen Delivery Method Room Air Room Air BMI result Body Mass Index 38.0 Labs 05/11/23 19:10 05/11/23 19:10 Medications Medications Current Medications Acetaminophen (Acetaminophen 325 Mg Tablet) 650 mg PO Q6H PRN PRN Reason: Headache/Pain Mild Scale (1-3) Al Hydroxide/Mg Hydroxide (Magnesium Hydrox/Alum Hydrox 30 Ml Oral.Susp) 30 ml PO Q6H PRN PRN Reason: Heartburn/Nausea Last Admin: 05/12/23 19:12 Dose: 30 ml Clonazepam (Clonazepam 0.5 Mg Tablet) 0.5 mg PO BID [facility] Last Admin: 05/16/23 12:40 Dose: 0.5 mg Clozapine (Clozapine 100 Mg Tablet) 500 mg PO BEDTIME [facility] Last Admin: 05/15/23 22:05 Dose: 500 mg Docusate Sodium (Docusate Sodium 100 Mg Capsule) 100 mg PO BID [facility] Last Admin: 05/16/23 12:40 Dose: 100 mg Ergocalciferol (Ergocalciferol (Vitamin D2) 1,250 Mcg Capsule) 1,250 mcg PO Mo [facility] Last Admin: 05/11/23 21:13 Dose: 1,250 mcg Hydroxyzine HCl (Hydroxyzine Hcl 25 Mg Tablet) 25 mg PO Q6H PRN PRN Reason: Anxiety Last Admin: 05/13/23 15:46 Dose: 25 mg Magnesium Hydroxide (Milk Of Magnesia 30 Ml Oral.Susp) 30 ml PO DAILY PRN PRN Reason: Constipation Last Admin: 05/13/23 17:52 Dose: 30 ml Risperidone (Risperidone 1 Mg Tablet) 1 mg PO BID [facility] Last Admin: 05/16/23 12:40 Dose: 1 mg Sertraline HCl (Sertraline Hcl 25 Mg Tablet) 25 mg PO DAILY [facility] Last Admin: 05/16/23 12:40 Dose: 25 mg Trazodone HCl (Trazodone Hcl 100 Mg Tablet) 100 mg PO BEDTIME [facility] Last Admin: 05/15/23 22:05 Dose: 100 mg Trazodone HCl (Trazodone Hcl 50 Mg Tablet) 50 mg PO BEDTIME MRX1 PRN PRN Reason: Insomnia Allergies Allergies Allergy/AdvReac Type Severity Reaction Status Date / Time haloperidol [From HALDOL] AdvReac Unknown EYES Verified 10/07/21 16:11 ROLLED BACK Assessment & Plan Assessment & Plan (1) Suicidal ideation: Status: Acute Code(s): R45.851 - Suicidal ideations Assessment and Plan: 05/16/23 agrees to let staff know if feels will act on thoughts (2) Auditory hallucinations: Status: Acute Code(s): R44.0 - Auditory hallucinations Assessment and Plan: 05/17/23 ongoing - discussed distraction strategies I tried (3) Schizoaffective disorder, depressive type: Status: Acute Code(s): F25.1 - Schizoaffective disorder, depressive type (4) PTSD (post-traumatic stress disorder): Status: Acute Code(s): F43.10 - Post-traumatic stress disorder, unspecified Plan 05/12: continue home medications regimen. allow time for reconstitution. discharge to home once stabilized. keep safe. 05/13: start paxil 20 mg daily for depression, as pt reports h/o good prior experience on it. pt reported she intended to sign CV, otherwise 12b up tomorrow and she will need to discharge. stable. modest improvement in Sx. 05/14: signed CV yesterday. slept late into afternoon today, paxil DCed and zoloft started to minimize problematic drug-drug interactions. begin risperidone taper by changing 2 BID to 1 BID as of tonight; pt perceives minimal benefit from it since it was added to regimen. 05/16/23 CTP Patient educated on: therapeutic strategies (re ) Informed Consent: understands (though may not understand that has to keep trying) Reason for continued inpatient stay Substantial Risk for: harm to self and rapid decompensation Time Spent With Patient Time: Total time managing care of this patient today ____ minutes.
[2023-05-16] MEDS: hydrOXYzine HCL 25 MG TABLET PO (16:21)
[2023-05-16 19:30] VITALS: BP 135/85; PULSE 98; RESP 15; TEMP 36.4; O2SAT 96
[2023-05-16] MEDS: cloZAPine 100 MG TABLET 500 MG PO (21:17)
[2023-05-16] MEDS: traZODone HCL 100 MG TABLET PO (21:18)
[2023-05-17 07:30] VITALS: BP 106/62; PULSE 83; RESP 14; TEMP 36.5; O2SAT 95
[2023-05-17] MEDS: risperiDONE 1 MG TABLET PO ×2 (08:01→21:01)
[2023-05-17] MEDS: Docusate Sodium 100 MG CAPSULE PO ×2 (08:01→21:01)
[2023-05-17] MEDS: clonazePAM 0.5 MG TABLET PO ×2 (08:01→21:01)
[2023-05-17] MEDS: Sertraline HCL 25 MG TABLET PO (08:02)
--- NOTE | 2023-05-17 13:58 | P.PNPSI_ITS ---
Subjective Subjective Date of Service: 05/17/23 Reason For Visit: SI Subjective Notes: Conditional Voluntary Interim History: 38 yo who continues to struggle with psychosis and si - felt some si yesterday afternoon due to ongoing shadows and voices took some vistaril with partial effect- visible today eating and dressed in main area - Continues to not want med changes awaiting effect from changes just made-Slept Medication Compliance: Yes Side effects from medications: No Attending Groups: Intermittent Review of Systems Acute medical concerns: No Medical Review of Systems: unchanged Review of Systems Review of Systems Yes all other systems are reviewed and are negative Mental Status Exam Mental Status Exam Patient Appearance: Well Grooomed and Appropriate Patient Orientation: Person, Place, Time and Situation Level of Consciousness: Awake Patient Behavior: Appropriate, Cooperative, Passive, Timid and Good Eye Contact Mood Description: Apprehensive Affect Description: Blunted Patient Cognition Impaired: No Ability to Follow Directions: Good Hallucinations: Auditory and Visual Thought Process: Intact and Goal Oriented Thought Content: positive for [place] and positive for Poverty of Content Depressive Symptoms: Increased Fatigue and Difficulty Concentrating Judgement: Fair Diagnostics Vital Signs (24Hr): Vital Signs - 24 hr 05/16/23 19:30 05/17/23 07:30 Temperature 97.6 F 97.7 F Pulse Rate 98 83 Respiratory Rate 15 14 Blood Pressure 135/85 106/62 Pulse Oximetry 96 95 Oxygen Delivery Method Room Air Room Air BMI result Body Mass Index 38.0 Labs 05/11/23 19:10 05/11/23 19:10 Medications Medications Current Medications Acetaminophen (Acetaminophen 325 Mg Tablet) 650 mg PO Q6H PRN PRN Reason: Headache/Pain Mild Scale (1-3) Al Hydroxide/Mg Hydroxide (Magnesium Hydrox/Alum Hydrox 30 Ml Oral.Susp) 30 ml PO Q6H PRN PRN Reason: Heartburn/Nausea Last Admin: 05/12/23 19:12 Dose: 30 ml Clonazepam (Clonazepam 0.5 Mg Tablet) 0.5 mg PO BID [facility] Last Admin: 05/17/23 08:01 Dose: 0.5 mg Clozapine (Clozapine 100 Mg Tablet) 500 mg PO BEDTIME [facility] Last Admin: 05/16/23 21:17 Dose: 500 mg Docusate Sodium (Docusate Sodium 100 Mg Capsule) 100 mg PO BID [facility] Last Admin: 05/17/23 08:01 Dose: 100 mg Ergocalciferol (Ergocalciferol (Vitamin D2) 1,250 Mcg Capsule) 1,250 mcg PO Mo [facility] Last Admin: 05/11/23 21:13 Dose: 1,250 mcg Hydroxyzine HCl (Hydroxyzine Hcl 25 Mg Tablet) 25 mg PO Q6H PRN PRN Reason: Anxiety Last Admin: 05/16/23 16:21 Dose: 25 mg Magnesium Hydroxide (Milk Of Magnesia 30 Ml Oral.Susp) 30 ml PO DAILY PRN PRN Reason: Constipation Last Admin: 05/13/23 17:52 Dose: 30 ml Risperidone (Risperidone 1 Mg Tablet) 1 mg PO BID [facility] Last Admin: 05/17/23 08:01 Dose: 1 mg Sertraline HCl (Sertraline Hcl 25 Mg Tablet) 25 mg PO DAILY [facility] Last Admin: 05/17/23 08:02 Dose: 25 mg Trazodone HCl (Trazodone Hcl 100 Mg Tablet) 100 mg PO BEDTIME [facility] Last Admin: 05/16/23 21:18 Dose: 100 mg Trazodone HCl (Trazodone Hcl 50 Mg Tablet) 50 mg PO BEDTIME MRX1 PRN PRN Reason: Insomnia Allergies Allergies Allergy/AdvReac Type Severity Reaction Status Date / Time haloperidol [From HALDOL] AdvReac Unknown EYES Verified 10/07/21 16:11 ROLLED BACK Assessment & Plan Assessment & Plan (1) Suicidal ideation: Status: Acute Code(s): R45.851 - Suicidal ideations Assessment and Plan: 05/16/23 agrees to let staff know if feels will act on thoughts (2) Auditory hallucinations: Status: Acute Code(s): R44.0 - Auditory hallucinations Assessment and Plan: 05/17/23 ongoing - discussed distraction strategies I tried (3) Schizoaffective disorder, depressive type: Status: Acute Code(s): F25.1 - Schizoaffective disorder, depressive type (4) PTSD (post-traumatic stress disorder): Status: Acute Code(s): F43.10 - Post-traumatic stress disorder, unspecified Plan 05/12: continue home medications regimen. allow time for reconstitution. discharge to home once stabilized. keep safe. 05/13: start paxil 20 mg daily for depression, as pt reports h/o good prior experience on it. pt reported she intended to sign CV, otherwise 12b up tomorrow and she will need to discharge. stable. modest improvement in Sx. 05/14: signed CV yesterday. slept late into afternoon today, paxil DCed and zoloft started to minimize problematic drug-drug interactions. begin risperidone taper by changing 2 BID to 1 BID as of tonight; pt perceives minimal benefit from it since it was added to regimen. 05/16/23 CTP 05/17/23 Patient educated on: medication risk/benefits and therapeutic strategies Informed Consent: understands Reason for continued inpatient stay Substantial Risk for: harm to self and rapid decompensation Time Spent With Patient Time: Total time managing care of this patient today ____ minutes.
[2023-05-17] MEDS: cloZAPine 100 MG TABLET 500 MG PO (20:59)
[2023-05-17] MEDS: traZODone HCL 100 MG TABLET PO (21:00)
[2023-05-17 21:05] VITALS: BP 133/83; PULSE 107; RESP 16; TEMP 36.4; O2SAT 97
[2023-05-18 05:03] LABS: Norclozapine 977 mcg/L (25-400)
[2023-05-18 07:55] VITALS: BP 106/58; PULSE 89; RESP 16; TEMP 36.4; O2SAT 96
[2023-05-18 08:56] LABS: Clozapine (Clozaril) 1619
[2023-05-18] MEDS: clonazePAM 0.5 MG TABLET PO ×2 (08:59→21:27)
[2023-05-18] MEDS: Docusate Sodium 100 MG CAPSULE PO ×2 (08:59→21:27)
[2023-05-18] MEDS: risperiDONE 1 MG TABLET PO (08:59)
[2023-05-18] MEDS: Sertraline HCL 25 MG TABLET PO (08:59)
--- NOTE | 2023-05-18 15:54 | P.PNPSI_ITS ---
Subjective Subjective Date of Service: 05/18/23 Reason For Visit: SI Interim History: calm, cooperative. reports AH have moved to the background, as have the SI. amenable to continue risperidone taper. reviewed cloz/norcloz levels, pt informed they are elevated. per staff, not attending groups. mod anx/dep. +AVH. sat +SIBI, but told staff and did not engage in SIB. Mental Status Exam Mental Status Exam Narrative: Adequately dressed and groomed.? Cooperative. PMR.? Speech decr rate, amount, loudness, tone. incr latency.? Thoughts linear.? Affect blunted, hypo-intense, non-labile.? SI and AH in the background and pretty manageable. no HI/VH expressed. Diagnostics Vital Signs (24Hr): Vital Signs - 24 hr 05/17/23 21:05 05/18/23 07:55 Temperature 97.5 F 97.5 F Pulse Rate 107 H 89 Respiratory Rate 16 16 Blood Pressure 133/83 106/58 L Pulse Oximetry 97 96 Oxygen Delivery Method Room Air Room Air BMI result Body Mass Index 38.0 Labs 05/11/23 19:10 05/11/23 19:10 Labs: Laboratory Results - last 48 hr 05/13/23 18:08 Clozapine 1619 Norclozapine 977 H Medications Medications Current Medications Acetaminophen (Acetaminophen 325 Mg Tablet) 650 mg PO Q6H PRN PRN Reason: Headache/Pain Mild Scale (1-3) Al Hydroxide/Mg Hydroxide (Magnesium Hydrox/Alum Hydrox 30 Ml Oral.Susp) 30 ml PO Q6H PRN PRN Reason: Heartburn/Nausea Last Admin: 05/12/23 19:12 Dose: 30 ml Clonazepam (Clonazepam 0.5 Mg Tablet) 0.5 mg PO BID [facility] Last Admin: 05/18/23 08:59 Dose: 0.5 mg Clozapine (Clozapine 100 Mg Tablet) 500 mg PO BEDTIME [facility] Last Admin: 05/17/23 20:59 Dose: 500 mg Docusate Sodium (Docusate Sodium 100 Mg Capsule) 100 mg PO BID [facility] Last Admin: 05/18/23 08:59 Dose: 100 mg Ergocalciferol (Ergocalciferol (Vitamin D2) 1,250 Mcg Capsule) 1,250 mcg PO Mo [facility] Last Admin: 05/11/23 21:13 Dose: 1,250 mcg Hydroxyzine HCl (Hydroxyzine Hcl 25 Mg Tablet) 25 mg PO Q6H PRN PRN Reason: Anxiety Last Admin: 05/16/23 16:21 Dose: 25 mg Magnesium Hydroxide (Milk Of Magnesia 30 Ml Oral.Susp) 30 ml PO DAILY PRN PRN Reason: Constipation Last Admin: 05/13/23 17:52 Dose: 30 ml Risperidone (Risperidone 0.5 Mg Tablet) 0.5 mg PO BID [facility] Sertraline HCl (Sertraline Hcl 25 Mg Tablet) 25 mg PO DAILY [facility] Last Admin: 05/18/23 08:59 Dose: 25 mg Trazodone HCl (Trazodone Hcl 100 Mg Tablet) 100 mg PO BEDTIME [facility] Last Admin: 05/17/23 21:00 Dose: 100 mg Trazodone HCl (Trazodone Hcl 50 Mg Tablet) 50 mg PO BEDTIME MRX1 PRN PRN Reason: Insomnia Allergies Allergies Allergy/AdvReac Type Severity Reaction Status Date / Time haloperidol [From HALDOL] AdvReac Unknown EYES Verified 10/07/21 16:11 ROLLED BACK Assessment & Plan Assessment & Plan (1) Suicidal ideation: Status: Acute Code(s): R45.851 - Suicidal ideations Assessment and Plan: 05/16/23 agrees to let staff know if feels will act on thoughts (2) Auditory hallucinations: Status: Acute Code(s): R44.0 - Auditory hallucinations Assessment and Plan: 05/17/23 ongoing - discussed distraction strategies I tried (3) Schizoaffective disorder, depressive type: Status: Acute Code(s): F25.1 - Schizoaffective disorder, depressive type (4) PTSD (post-traumatic stress disorder): Status: Acute Code(s): F43.10 - Post-traumatic stress disorder, unspecified Plan 05/12: continue home medications regimen. allow time for reconstitution. discharge to home once stabilized. keep safe. 05/13: start paxil 20 mg daily for depression, as pt reports h/o good prior experience on it. pt reported she intended to sign CV, otherwise 12b up tomorrow and she will need to discharge. stable. modest improvement in Sx. 05/14: signed CV yesterday. slept late into afternoon today, paxil DCed and zoloft started to minimize problematic drug-drug interactions. begin risperidone taper by changing 2 BID to 1 BID as of tonight; pt perceives minimal benefit from it since it was added to regimen. 05/16/23 CTP 05/17/2305/17: clozapine level 1619 (toxicity may occur over 900), norclozapine 977 (nml range 25-400). pt reports she has been informed that as long as she is not having signs of toxicity these elevated levels are OK. no signs or Sx of toxicity noted. Sx improved. continue risperidone taper, down to 0.5 mg BID as of tonight. Reason for continued inpatient stay Substantial Risk for: harm to self, inability to function and rapid decompensation Time Spent With Patient Time: Total time managing care of this patient today __25__ minutes.
[2023-05-18 19:09] LABS: Neut%MD 56.7 %; Neutrophils Absolute Auto 4.6 x10*3/uL (2.0-8.3); WBCANC 8.1 X10*3/uL
[2023-05-18 19:30] VITALS: BP 124/75; PULSE 105; RESP 15; TEMP 36.6; O2SAT 97
[2023-05-18] MEDS: traZODone HCL 100 MG TABLET PO (21:26)
[2023-05-18] MEDS: risperiDONE 0.5 MG TABLET PO (21:26)
[2023-05-18] MEDS: cloZAPine 100 MG TABLET 500 MG PO (21:27)
[2023-05-18] MEDS: Ergocalciferol (Vitamin D2) 1,250 MCG CAPSULE 1250 MCG PO (21:36)
[2023-05-19 07:46] VITALS: BP 89/51; PULSE 64; RESP 14; TEMP 36.4; O2SAT 99
[2023-05-19] MEDS: Sertraline HCL 25 MG TABLET PO (08:50)
[2023-05-19] MEDS: clonazePAM 0.5 MG TABLET PO ×2 (08:50→21:41)
[2023-05-19] MEDS: Docusate Sodium 100 MG CAPSULE PO ×2 (08:50→21:40)
[2023-05-19] MEDS: risperiDONE 0.5 MG TABLET PO ×2 (08:50→21:41)
--- NOTE | 2023-05-19 15:31 | HO.PSYCHPN ---
Subjective Subjective Date of Service: 05/19/23 Reason For Visit: SI Interim History: tired, napping after lunch. no requests or complaints. mood back and forth. per staff, dep 6 anx 8. intermittent SI. paranoid. feels like people are talking about her. +AVH. slept 7 hours. Mental Status Exam Mental Status Exam Narrative: Adequately dressed and groomed.? Cooperative. PMR.? Speech decr rate, amount, loudness, tone. incr latency.? Thoughts linear.? Affect blunted, hypo-intense, non-labile.? mood back and forth. no SI/SIBI/HI/AVH expressed. Diagnostics Vital Signs (24Hr): Vital Signs - 24 hr 05/18/23 19:30 05/19/23 07:46 Temperature 98 F 97.6 F Pulse Rate 105 H 64 Respiratory Rate 15 14 Blood Pressure 124/75 89/51 L Pulse Oximetry 97 99 Oxygen Delivery Method Room Air Room Air BMI result Body Mass Index 38.0 Labs 05/11/23 19:10 05/11/23 19:10 Labs: Laboratory Results - last 48 hr 05/13/23 05/18/23 18:08 18:58 Absolute Neuts (auto) 4.6 Clozapine 1619 Norclozapine 977 H Medications Medications Current Medications Acetaminophen (Acetaminophen 325 Mg Tablet) 650 mg PO Q6H PRN PRN Reason: Headache/Pain Mild Scale (1-3) Al Hydroxide/Mg Hydroxide (Magnesium Hydrox/Alum Hydrox 30 Ml Oral.Susp) 30 ml PO Q6H PRN PRN Reason: Heartburn/Nausea Last Admin: 05/12/23 19:12 Dose: 30 ml Clonazepam (Clonazepam 0.5 Mg Tablet) 0.5 mg PO BID [facility] Last Admin: 05/19/23 08:50 Dose: 0.5 mg Clozapine (Clozapine 100 Mg Tablet) 500 mg PO BEDTIME [facility] Last Admin: 05/18/23 21:27 Dose: 500 mg Docusate Sodium (Docusate Sodium 100 Mg Capsule) 100 mg PO BID [facility] Last Admin: 05/19/23 08:50 Dose: 100 mg Ergocalciferol (Ergocalciferol (Vitamin D2) 1,250 Mcg Capsule) 1,250 mcg PO Mo [facility] Last Admin: 05/18/23 21:36 Dose: 1,250 mcg Hydroxyzine HCl (Hydroxyzine Hcl 25 Mg Tablet) 25 mg PO Q6H PRN PRN Reason: Anxiety Last Admin: 05/16/23 16:21 Dose: 25 mg Magnesium Hydroxide (Milk Of Magnesia 30 Ml Oral.Susp) 30 ml PO DAILY PRN PRN Reason: Constipation Last Admin: 05/13/23 17:52 Dose: 30 ml Risperidone (Risperidone 0.5 Mg Tablet) 0.5 mg PO BID [facility] Last Admin: 05/19/23 08:50 Dose: 0.5 mg Sertraline HCl (Sertraline Hcl 25 Mg Tablet) 25 mg PO DAILY [facility] Last Admin: 05/19/23 08:50 Dose: 25 mg Trazodone HCl (Trazodone Hcl 100 Mg Tablet) 100 mg PO BEDTIME [facility] Last Admin: 05/18/23 21:26 Dose: 100 mg Trazodone HCl (Trazodone Hcl 50 Mg Tablet) 50 mg PO BEDTIME MRX1 PRN PRN Reason: Insomnia Allergies Allergies Allergy/AdvReac Type Severity Reaction Status Date / Time haloperidol [From HALDOL] AdvReac Unknown EYES Verified 10/07/21 16:11 ROLLED BACK Assessment & Plan Assessment & Plan (1) Suicidal ideation: Status: Acute Code(s): R45.851 - Suicidal ideations Assessment and Plan: 05/16/23 agrees to let staff know if feels will act on thoughts (2) Auditory hallucinations: Status: Acute Code(s): R44.0 - Auditory hallucinations Assessment and Plan: 05/17/23 ongoing ah- discussed distraction strategies I tried (3) Schizoaffective disorder, depressive type: Status: Acute Code(s): F25.1 - Schizoaffective disorder, depressive type (4) PTSD (post-traumatic stress disorder): Status: Acute Code(s): F43.10 - Post-traumatic stress disorder, unspecified Plan 05/12: continue home medications regimen. allow time for reconstitution. discharge to home once stabilized. keep safe. 05/13: start paxil 20 mg daily for depression, as pt reports h/o good prior experience on it. pt reported she intended to sign CV, otherwise 12b up tomorrow and she will need to discharge. stable. modest improvement in Sx. 05/14: signed CV yesterday. slept late into afternoon today, paxil DCed and zoloft started to minimize problematic drug-drug interactions. begin risperidone taper by changing 2 BID to 1 BID as of tonight; pt perceives minimal benefit from it since it was added to regimen. 05/16/23 CTP 05/17/2305/17: clozapine level 1619 (toxicity may occur over 900), norclozapine 977 (nml range 25-400). pt reports she has been informed that as long as she is not having signs of toxicity these elevated levels are OK. no signs or Sx of toxicity noted. Sx improved. continue risperidone taper, down to 0.5 mg BID as of tonight. 05/18: vacillating mood. continue current mgmt. pt supportive of continuing risperidone taper, which will be advanced tomorrow. Reason for continued inpatient stay Substantial Risk for: harm to self, inability to function and rapid decompensation Time Spent With Patient Time: Total time managing care of this patient today _25___ minutes.
[2023-05-19] MEDS: hydrOXYzine HCL 25 MG TABLET PO (19:06)
[2023-05-19] MEDS: cloZAPine 100 MG TABLET 500 MG PO (21:40)
[2023-05-19] MEDS: traZODone HCL 100 MG TABLET PO (21:42)
[2023-05-19 21:45] VITALS: BP 127/81; PULSE 100; RESP 16; TEMP 36.8; O2SAT 97
[2023-05-20] MEDS: Sertraline HCL 25 MG TABLET PO (08:32)
[2023-05-20] MEDS: Docusate Sodium 100 MG CAPSULE PO ×2 (08:32→21:38)
[2023-05-20] MEDS: clonazePAM 0.5 MG TABLET PO ×2 (08:32→21:38)
[2023-05-20] MEDS: risperiDONE 0.5 MG TABLET PO (08:32)
[2023-05-20 11:00] VITALS: BP 105/57; PULSE 99; RESP 20; TEMP 36.9; O2SAT 94
--- NOTE | 2023-05-20 12:46 | HO.PSYCHPN ---
Subjective Subjective Date of Service: 05/20/23 Reason For Visit: SI Interim History: in bed, somnolent. rousable, calm, cooperative. c/o intermittent troublesome AH, agrees to DC scheduled risperidone and use 1 mg BID PRN upsetting AH. in general feeling slightly improved from admission. reported a period of agitation last night with SI but was able to talk it through with staff and not react. would like to continue current Tx otherwise. per staff, dep 4 anx 5. less SI. +AVH. +meds. no CAH. whispers. +grps. +SI last night with racing heart, sweaty hands; able to remain in behavioral control. Mental Status Exam Mental Status Exam Narrative: Adequately dressed and groomed.? Cooperative. PMR.? Speech decr rate, amount, loudness, tone. incr latency.? Thoughts linear.? Affect blunted, hypo-intense, non-labile.? mood slightly improved from admission. no SI/SIBI/HI/AVH expressed; period of SI last night. Diagnostics Vital Signs (24Hr): Vital Signs - 24 hr 05/19/23 21:45 05/20/23 11:00 Temperature 98.2 F 98.5 F Pulse Rate 100 99 Respiratory Rate 16 20 Blood Pressure 127/81 105/57 L Pulse Oximetry 97 94 Oxygen Delivery Method Room Air Room Air BMI result Body Mass Index 38.0 Labs 05/11/23 19:10 05/11/23 19:10 Labs: Laboratory Results - last 48 hr 05/18/23 18:58 Absolute Neuts (auto) 4.6 Medications Medications Current Medications Acetaminophen (Acetaminophen 325 Mg Tablet) 650 mg PO Q6H PRN PRN Reason: Headache/Pain Mild Scale (1-3) Al Hydroxide/Mg Hydroxide (Magnesium Hydrox/Alum Hydrox 30 Ml Oral.Susp) 30 ml PO Q6H PRN PRN Reason: Heartburn/Nausea Last Admin: 05/12/23 19:12 Dose: 30 ml Clonazepam (Clonazepam 0.5 Mg Tablet) 0.5 mg PO BID [facility] Last Admin: 05/20/23 08:32 Dose: 0.5 mg Clozapine (Clozapine 100 Mg Tablet) 500 mg PO BEDTIME [facility] Last Admin: 05/19/23 21:40 Dose: 500 mg Docusate Sodium (Docusate Sodium 100 Mg Capsule) 100 mg PO BID [facility] Last Admin: 05/20/23 08:32 Dose: 100 mg Ergocalciferol (Ergocalciferol (Vitamin D2) 1,250 Mcg Capsule) 1,250 mcg PO Mo [facility] Last Admin: 05/18/23 21:36 Dose: 1,250 mcg Hydroxyzine HCl (Hydroxyzine Hcl 25 Mg Tablet) 25 mg PO Q6H PRN PRN Reason: Anxiety Last Admin: 05/19/23 19:06 Dose: 25 mg Magnesium Hydroxide (Milk Of Magnesia 30 Ml Oral.Susp) 30 ml PO DAILY PRN PRN Reason: Constipation Last Admin: 05/13/23 17:52 Dose: 30 ml Risperidone (Risperidone 1 Mg Tablet) 1 mg PO BID PRN PRN Reason: auditory hallucinations Sertraline HCl (Sertraline Hcl 25 Mg Tablet) 25 mg PO DAILY [facility] Last Admin: 05/20/23 08:32 Dose: 25 mg Trazodone HCl (Trazodone Hcl 100 Mg Tablet) 100 mg PO BEDTIME [facility] Last Admin: 05/19/23 21:42 Dose: 100 mg Trazodone HCl (Trazodone Hcl 50 Mg Tablet) 50 mg PO BEDTIME MRX1 PRN PRN Reason: Insomnia Allergies Allergies Allergy/AdvReac Type Severity Reaction Status Date / Time haloperidol [From HALDOL] AdvReac Unknown EYES Verified 10/07/21 16:11 ROLLED BACK Assessment & Plan Assessment & Plan (1) Suicidal ideation: Status: Acute Code(s): R45.851 - Suicidal ideations Assessment and Plan: 05/16/23 agrees to let staff know if feels will act on thoughts (2) Auditory hallucinations: Status: Acute Code(s): R44.0 - Auditory hallucinations Assessment and Plan: 05/17/23 ongoing - discussed distraction strategies I tried (3) Schizoaffective disorder, depressive type: Status: Acute Code(s): F25.1 - Schizoaffective disorder, depressive type (4) PTSD (post-traumatic stress disorder): Status: Acute Code(s): F43.10 - Post-traumatic stress disorder, unspecified Plan 05/12: continue home medications regimen. allow time for reconstitution. discharge to home once stabilized. keep safe. 05/13: start paxil 20 mg daily for depression, as pt reports h/o good prior experience on it. pt reported she intended to sign CV, otherwise 12b up tomorrow and she will need to discharge. stable. modest improvement in Sx. 05/14: signed CV yesterday. slept late into afternoon today, paxil DCed and zoloft started to minimize problematic drug-drug interactions. begin risperidone taper by changing 2 BID to 1 BID as of tonight; pt perceives minimal benefit from it since it was added to regimen. 05/16/23 CTP 05/17/2305/17: clozapine level 1619 (toxicity may occur over 900), norclozapine 977 (nml range 25-400). pt reports she has been informed that as long as she is not having signs of toxicity these elevated levels are OK. no signs or Sx of toxicity noted. Sx improved. continue risperidone taper, down to 0.5 mg BID as of tonight. 05/18: vacillating mood. continue current mgmt. pt supportive of continuing risperidone taper, which will be advanced tomorrow. 05/19: DC scheduled risperidone, add back risperidone 1 mg BID PRN AH per pt request. moderate improvement in mood and psychotic Sx since admission. continue current mgmt otherwise. Reason for continued inpatient stay Substantial Risk for: harm to self and inability to function Time Spent With Patient Time: Total time managing care of this patient today __25__ minutes.
[2023-05-20 20:09] VITALS: BP 135/76; PULSE 101; RESP 16; TEMP 37; O2SAT 96
[2023-05-20] MEDS: traZODone HCL 100 MG TABLET PO (21:38)
[2023-05-20] MEDS: cloZAPine 100 MG TABLET 500 MG PO (21:38)
[2023-05-21 06:00] VITALS: BP 112/72; PULSE 86; RESP 14; TEMP 36.8; O2SAT 97
[2023-05-21 07:00] VITALS: BMI 38.0
[2023-05-21] MEDS: clonazePAM 0.5 MG TABLET PO ×2 (09:58→21:33)
[2023-05-21] MEDS: Docusate Sodium 100 MG CAPSULE PO ×2 (09:58→21:33)
[2023-05-21] MEDS: Sertraline HCL 25 MG TABLET PO (09:58)
--- NOTE | 2023-05-21 15:09 | P.PNPSI_ITS ---
Subjective Subjective Date of Service: 05/21/23 Reason For Visit: SI Interim History: calm, cooperative. up and about the unit. similar presentation to yesterday asking for melatonin for sleep. per staff, flat affect. isolative. slept 8-9 hours. Mental Status Exam Mental Status Exam Narrative: Adequately dressed and groomed.? Cooperative. PMR.? Speech decr rate, amount, loudness, tone. incr latency.? Thoughts linear.? Affect blunted, hypo-intense, non-labile.? mood fluctuates. no SI/SIBI/HI/VH expressed; AH OK. Diagnostics Vital Signs (24Hr): Vital Signs - 24 hr 05/20/23 20:09 05/21/23 06:00 Temperature 98.6 F 98.2 F Pulse Rate 101 H 86 Respiratory Rate 16 14 Blood Pressure 135/76 112/72 Pulse Oximetry 96 97 Oxygen Delivery Method Room Air Room Air BMI result Body Mass Index 38.0 Labs 05/11/23 19:10 05/11/23 19:10 Medications Medications Current Medications Acetaminophen (Acetaminophen 325 Mg Tablet) 650 mg PO Q6H PRN PRN Reason: Headache/Pain Mild Scale (1-3) Al Hydroxide/Mg Hydroxide (Magnesium Hydrox/Alum Hydrox 30 Ml Oral.Susp) 30 ml PO Q6H PRN PRN Reason: Heartburn/Nausea Last Admin: 05/12/23 19:12 Dose: 30 ml Clonazepam (Clonazepam 0.5 Mg Tablet) 0.5 mg PO BID [facility] Last Admin: 05/21/23 09:58 Dose: 0.5 mg Clozapine (Clozapine 100 Mg Tablet) 500 mg PO BEDTIME [facility] Last Admin: 05/20/23 21:38 Dose: 500 mg Docusate Sodium (Docusate Sodium 100 Mg Capsule) 100 mg PO BID [facility] Last Admin: 05/21/23 09:58 Dose: 100 mg Ergocalciferol (Ergocalciferol (Vitamin D2) 1,250 Mcg Capsule) 1,250 mcg PO Mo [facility] Last Admin: 05/18/23 21:36 Dose: 1,250 mcg Hydroxyzine HCl (Hydroxyzine Hcl 25 Mg Tablet) 25 mg PO Q6H PRN PRN Reason: Anxiety Last Admin: 05/19/23 19:06 Dose: 25 mg Magnesium Hydroxide (Milk Of Magnesia 30 Ml Oral.Susp) 30 ml PO DAILY PRN PRN Reason: Constipation Last Admin: 05/13/23 17:52 Dose: 30 ml Melatonin (Melatonin 3 Mg Tablet) 9 mg PO BEDTIME PRN PRN Reason: insomnia Risperidone (Risperidone 1 Mg Tablet) 1 mg PO BID PRN PRN Reason: auditory hallucinations Sertraline HCl (Sertraline Hcl 25 Mg Tablet) 25 mg PO DAILY [facility] Last Admin: 05/21/23 09:58 Dose: 25 mg Trazodone HCl (Trazodone Hcl 100 Mg Tablet) 100 mg PO BEDTIME [facility] Last Admin: 05/20/23 21:38 Dose: 100 mg Trazodone HCl (Trazodone Hcl 50 Mg Tablet) 50 mg PO BEDTIME MRX1 PRN PRN Reason: Insomnia Allergies Allergies Allergy/AdvReac Type Severity Reaction Status Date / Time haloperidol [From HALDOL] AdvReac Unknown EYES Verified 10/07/21 16:11 ROLLED BACK Assessment & Plan Assessment & Plan (1) Suicidal ideation: Status: Acute Code(s): R45.851 - Suicidal ideations Assessment and Plan: 05/16/23 agrees to let staff know if feels will act on thoughts (2) Auditory hallucinations: Status: Acute Code(s): R44.0 - Auditory hallucinations Assessment and Plan: 05/17/23 ongoing - discussed distraction strategies I tried (3) Schizoaffective disorder, depressive type: Status: Acute Code(s): F25.1 - Schizoaffective disorder, depressive type (4) PTSD (post-traumatic stress disorder): Status: Acute Code(s): F43.10 - Post-traumatic stress disorder, unspecified Plan 05/12: continue home medications regimen. allow time for reconstitution. discharge to home once stabilized. keep safe. 05/13: start paxil 20 mg daily for depression, as pt reports h/o good prior experience on it. pt reported she intended to sign CV, otherwise 12b up tomorrow and she will need to discharge. stable. modest improvement in Sx. 05/14: signed CV yesterday. slept late into afternoon today, paxil DCed and zoloft started to minimize problematic drug-drug interactions. begin risperidone taper by changing 2 BID to 1 BID as of tonight; pt perceives minimal benefit from it since it was added to regimen. 05/16/23 CTP 05/17/2305/17: clozapine level 1619 (toxicity may occur over 900), norclozapine 977 (nml range 25-400). pt reports she has been informed that as long as she is not having signs of toxicity these elevated levels are OK. no signs or Sx of toxicity noted. Sx improved. continue risperidone taper, down to 0.5 mg BID as of tonight. 05/18: vacillating mood. continue current mgmt. pt supportive of continuing risperidone taper, which will be advanced tomorrow. 05/19: DC scheduled risperidone, add back risperidone 1 mg BID PRN AH per pt request. moderate improvement in mood and psychotic Sx since admission. continue current mgmt otherwise. 05/20: add melatonin per pt request, otherwise continue current mgmt. mood fluctuating, AH OK. vague but indicating some improvement. Reason for continued inpatient stay Substantial Risk for: harm to self, inability to function and rapid decompensation Time Spent With Patient Time: Total time managing care of this patient today __25__ minutes.
[2023-05-21] MEDS: risperiDONE 1 MG TABLET PO (16:25)
[2023-05-21 21:15] VITALS: BP 121/82; PULSE 92; RESP 18; TEMP 36.9; O2SAT 98
[2023-05-21] MEDS: traZODone HCL 50 MG TABLET PO (21:33)
[2023-05-21] MEDS: Melatonin 3 MG TABLET 9 MG PO (21:33)
[2023-05-21] MEDS: Milk of Magnesia 30 ML ORAL.SUSP PO (21:33)
[2023-05-21] MEDS: traZODone HCL 100 MG TABLET PO (21:33)
[2023-05-21] MEDS: cloZAPine 100 MG TABLET 500 MG PO (21:33)
[2023-05-22 06:00] VITALS: BP 99/55; PULSE 86; RESP 14; TEMP 36.4; O2SAT 95
[2023-05-22] MEDS: Docusate Sodium 100 MG CAPSULE PO ×2 (10:17→21:37)
[2023-05-22] MEDS: Sertraline HCL 25 MG TABLET PO (10:18)
[2023-05-22] MEDS: clonazePAM 0.5 MG TABLET PO ×2 (10:18→21:37)
--- NOTE | 2023-05-22 12:48 | HO.PSYCHPN ---
Subjective Subjective Date of Service: 05/22/23 Reason For Visit: SI Interim History: reports AH OK this morning, mood stable. took risperidone 1 mg PRN yesterday, which she reports was helpful. no other requests or complaints. per staff, blunted affect. +AH. no socialization. depressed. withdrawn, guarded. watching TV in eves. attending all groups. Mental Status Exam Mental Status Exam Narrative: Adequately dressed and groomed.? Cooperative. PMR.? Speech decr rate, amount, loudness, tone. incr latency.? Thoughts linear.? Affect blunted, hypo-intense, non-labile.? mood stable. no SI/SIBI/HI/VH expressed; AH OK. Diagnostics Vital Signs (24Hr): Vital Signs - 24 hr 05/21/23 21:15 05/22/23 06:00 Temperature 98.4 F 97.6 F Pulse Rate 92 86 Respiratory Rate 18 14 Blood Pressure 121/82 99/55 L Pulse Oximetry 98 95 Oxygen Delivery Method Room Air Room Air BMI result Body Mass Index 38.0 Labs 05/11/23 19:10 05/11/23 19:10 Medications Medications Current Medications Acetaminophen (Acetaminophen 325 Mg Tablet) 650 mg PO Q6H PRN PRN Reason: Headache/Pain Mild Scale (1-3) Al Hydroxide/Mg Hydroxide (Magnesium Hydrox/Alum Hydrox 30 Ml Oral.Susp) 30 ml PO Q6H PRN PRN Reason: Heartburn/Nausea Last Admin: 05/12/23 19:12 Dose: 30 ml Clonazepam (Clonazepam 0.5 Mg Tablet) 0.5 mg PO BID [facility] Last Admin: 05/22/23 10:18 Dose: 0.5 mg Clozapine (Clozapine 100 Mg Tablet) 500 mg PO BEDTIME [facility] Last Admin: 05/21/23 21:33 Dose: 500 mg Docusate Sodium (Docusate Sodium 100 Mg Capsule) 100 mg PO BID [facility] Last Admin: 05/22/23 10:17 Dose: 100 mg Ergocalciferol (Ergocalciferol (Vitamin D2) 1,250 Mcg Capsule) 1,250 mcg PO Mo [facility] Last Admin: 05/18/23 21:36 Dose: 1,250 mcg Hydroxyzine HCl (Hydroxyzine Hcl 25 Mg Tablet) 25 mg PO Q6H PRN PRN Reason: Anxiety Last Admin: 05/19/23 19:06 Dose: 25 mg Magnesium Hydroxide (Milk Of Magnesia 30 Ml Oral.Susp) 30 ml PO DAILY PRN PRN Reason: Constipation Last Admin: 05/21/23 21:33 Dose: 30 ml Melatonin (Melatonin 3 Mg Tablet) 9 mg PO BEDTIME PRN PRN Reason: insomnia Last Admin: 05/21/23 21:33 Dose: 9 mg Risperidone (Risperidone 1 Mg Tablet) 1 mg PO BID PRN PRN Reason: auditory hallucinations Last Admin: 05/21/23 16:25 Dose: 1 mg Sertraline HCl (Sertraline Hcl 25 Mg Tablet) 25 mg PO DAILY [facility] Last Admin: 05/22/23 10:18 Dose: 25 mg Trazodone HCl (Trazodone Hcl 100 Mg Tablet) 100 mg PO BEDTIME [facility] Last Admin: 05/21/23 21:33 Dose: 100 mg Trazodone HCl (Trazodone Hcl 50 Mg Tablet) 50 mg PO BEDTIME MRX1 PRN PRN Reason: Insomnia Last Admin: 05/21/23 21:33 Dose: 50 mg Allergies Allergies Allergy/AdvReac Type Severity Reaction Status Date / Time haloperidol [From HALDOL] AdvReac Unknown EYES Verified 10/07/21 16:11 ROLLED BACK Assessment & Plan Assessment & Plan (1) Suicidal ideation: Status: Acute Code(s): R45.851 - Suicidal ideations Assessment and Plan: 05/16/23 agrees to let staff know if feels will act on thoughts (2) Auditory hallucinations: Status: Acute Code(s): R44.0 - Auditory hallucinations Assessment and Plan: 05/17/23 ongoing - discussed distraction strategies I tried (3) Schizoaffective disorder, depressive type: Status: Acute Code(s): F25.1 - Schizoaffective disorder, depressive type (4) PTSD (post-traumatic stress disorder): Status: Acute Code(s): F43.10 - Post-traumatic stress disorder, unspecified Plan 05/12: continue home medications regimen. allow time for reconstitution. discharge to home once stabilized. keep safe. 05/13: start paxil 20 mg daily for depression, as pt reports h/o good prior experience on it. pt reported she intended to sign CV, otherwise 12b up tomorrow and she will need to discharge. stable. modest improvement in Sx. 3/29: signed CV yesterday. slept late into afternoon today, paxil DCed and zoloft started to minimize problematic drug-drug interactions. begin risperidone taper by changing 2 BID to 1 BID as of tonight; pt perceives minimal benefit from it since it was added to regimen. 05/16/23 CTP 05/17/2305/17: clozapine level 1619 (toxicity may occur over 900), norclozapine 977 (nml range 25-400). pt reports she has been informed that as long as she is not having signs of toxicity these elevated levels are OK. no signs or Sx of toxicity noted. Sx improved. continue risperidone taper, down to 0.5 mg BID as of tonight. 05/18: vacillating mood. continue current mgmt. pt supportive of continuing risperidone taper, which will be advanced tomorrow. 05/19: DC scheduled risperidone, add back risperidone 1 mg BID PRN AH per pt request. moderate improvement in mood and psychotic Sx since admission. continue current mgmt otherwise. 05/20: add melatonin per pt request, otherwise continue current mgmt. mood fluctuating, AH OK. vague but indicating some improvement. 05/21: mood stable today. presentation stable. had PRN risperidone yesterday, which was helpful. continue current mgmt. gradually improving Sx. Reason for continued inpatient stay Substantial Risk for: harm to self, inability to function and rapid decompensation Time Spent With Patient Time: Total time managing care of this patient today __25__ minutes.
[2023-05-22] MEDS: cloZAPine 100 MG TABLET 500 MG PO (21:36)
[2023-05-22] MEDS: traZODone HCL 100 MG TABLET PO (21:37)
[2023-05-22 21:40] VITALS: BP 120/78; PULSE 105; RESP 16; TEMP 37.1; O2SAT 95
[2023-05-22] MEDS: Melatonin 3 MG TABLET 9 MG PO (22:31)
[2023-05-22] MEDS: traZODone HCL 50 MG TABLET PO (22:31)
[2023-05-23 08:05] VITALS: BP 100/58; PULSE 82; RESP 16; TEMP 36.8; O2SAT 95
[2023-05-23] MEDS: clonazePAM 0.5 MG TABLET PO ×2 (09:16→21:44)
[2023-05-23] MEDS: Docusate Sodium 100 MG CAPSULE PO ×2 (09:16→21:44)
[2023-05-23] MEDS: Sertraline HCL 25 MG TABLET PO (09:16)
[2023-05-23] MEDS: Acetaminophen 325 MG TABLET 650 MG PO (09:31)
--- NOTE | 2023-05-23 11:31 | HO.PSYCHPN ---
Subjective Subjective Date of Service: 05/23/23 Reason For Visit: SI Subjective Notes: Conditional Voluntary Interim History: met with patient. Discussed with Nursing. Patient reports that things are getting better and heading in the right direction. Reports that she does hear voices at baseline, but they are much less intense now in getting close to baseline. Denies current suicidal thoughts. Feels safe in the hospital. Sleeping well. No concerns regarding medications. Eating around half her meals which is an improvement. Medication Compliance: Yes Side effects from medications: No Attending Groups: Yes Review of Systems Acute medical concerns: No Review of Systems Review of Systems Nothing acute Mental Status Exam Mental Status Exam Narrative: Adequately dressed and groomed.? Cooperative. PMR.? Speech decr rate, amount, loudness, tone. incr latency.? Thoughts linear.? Affect less blunted, hypo-intense, non-labile.? mood stable. no SI/SIBI/HI/VH expressed; AH OK. Diagnostics Vital Signs (24Hr): Vital Signs - 24 hr 05/22/23 21:40 05/23/23 08:05 Temperature 98.7 F 98.2 F Pulse Rate 105 H 82 Respiratory Rate 16 16 Blood Pressure 120/78 100/58 L Pulse Oximetry 95 95 Oxygen Delivery Method Room Air Room Air BMI result Body Mass Index 38.0 Labs 05/11/23 19:10 05/11/23 19:10 Medications Medications Current Medications Acetaminophen (Acetaminophen 325 Mg Tablet) 650 mg PO Q6H PRN PRN Reason: Headache/Pain Mild Scale (1-3) Last Admin: 05/23/23 09:31 Dose: 650 mg Al Hydroxide/Mg Hydroxide (Magnesium Hydrox/Alum Hydrox 30 Ml Oral.Susp) 30 ml PO Q6H PRN PRN Reason: Heartburn/Nausea Last Admin: 05/12/23 19:12 Dose: 30 ml Clonazepam (Clonazepam 0.5 Mg Tablet) 0.5 mg PO BID [facility] Last Admin: 05/23/23 09:16 Dose: 0.5 mg Clozapine (Clozapine 100 Mg Tablet) 500 mg PO BEDTIME [facility] Last Admin: 05/22/23 21:36 Dose: 500 mg Docusate Sodium (Docusate Sodium 100 Mg Capsule) 100 mg PO BID [facility] Last Admin: 05/23/23 09:16 Dose: 100 mg Ergocalciferol (Ergocalciferol (Vitamin D2) 1,250 Mcg Capsule) 1,250 mcg PO Mo [facility] Last Admin: 05/18/23 21:36 Dose: 1,250 mcg Hydroxyzine HCl (Hydroxyzine Hcl 25 Mg Tablet) 25 mg PO Q6H PRN PRN Reason: Anxiety Last Admin: 05/19/23 19:06 Dose: 25 mg Magnesium Hydroxide (Milk Of Magnesia 30 Ml Oral.Susp) 30 ml PO DAILY PRN PRN Reason: Constipation Last Admin: 05/21/23 21:33 Dose: 30 ml Melatonin (Melatonin 3 Mg Tablet) 9 mg PO BEDTIME PRN PRN Reason: insomnia Last Admin: 05/22/23 22:31 Dose: 9 mg Risperidone (Risperidone 1 Mg Tablet) 1 mg PO BID PRN PRN Reason: auditory hallucinations Last Admin: 05/21/23 16:25 Dose: 1 mg Sertraline HCl (Sertraline Hcl 25 Mg Tablet) 25 mg PO DAILY [facility] Last Admin: 05/23/23 09:16 Dose: 25 mg Trazodone HCl (Trazodone Hcl 100 Mg Tablet) 100 mg PO BEDTIME [facility] Last Admin: 05/22/23 21:37 Dose: 100 mg Trazodone HCl (Trazodone Hcl 50 Mg Tablet) 50 mg PO BEDTIME MRX1 PRN PRN Reason: Insomnia Last Admin: 05/22/23 22:31 Dose: 50 mg Allergies Allergies Allergy/AdvReac Type Severity Reaction Status Date / Time haloperidol [From HALDOL] AdvReac Unknown EYES Verified 10/07/21 16:11 ROLLED BACK Assessment & Plan Assessment & Plan (1) Suicidal ideation: Status: Acute Code(s): R45.851 - Suicidal ideations Assessment and Plan: 05/16/23 agrees to let staff know if feels will act on thoughts (2) Auditory hallucinations: Status: Acute Code(s): R44.0 - Auditory hallucinations Assessment and Plan: 05/17/23 ongoing ah- discussed distraction strategies I tried (3) Schizoaffective disorder, depressive type: Status: Acute Code(s): F25.1 - Schizoaffective disorder, depressive type (4) PTSD (post-traumatic stress disorder): Status: Acute Code(s): F43.10 - Post-traumatic stress disorder, unspecified Plan 05/12: continue home medications regimen. allow time for reconstitution. discharge to home once stabilized. keep safe. 05/13: start paxil 20 mg daily for depression, as pt reports h/o good prior experience on it. pt reported she intended to sign CV, otherwise 12b up tomorrow and she will need to discharge. stable. modest improvement in Sx. 05/14: signed CV yesterday. slept late into afternoon today, paxil DCed and zoloft started to minimize problematic drug-drug interactions. begin risperidone taper by changing 2 BID to 1 BID as of tonight; pt perceives minimal benefit from it since it was added to regimen. 05/16/23 CTP 05/17/2305/17: clozapine level 1619 (toxicity may occur over 900), norclozapine 977 (nml range 25-400). pt reports she has been informed that as long as she is not having signs of toxicity these elevated levels are OK. no signs or Sx of toxicity noted. Sx improved. continue risperidone taper, down to 0.5 mg BID as of tonight. 05/18: vacillating mood. continue current mgmt. pt supportive of continuing risperidone taper, which will be advanced tomorrow. 05/19: DC scheduled risperidone, add back risperidone 1 mg BID PRN AH per pt request. moderate improvement in mood and psychotic Sx since admission. continue current mgmt otherwise. 05/20: add melatonin per pt request, otherwise continue current mgmt. mood fluctuating, AH OK. vague but indicating some improvement. 05/21: mood stable today. presentation stable. had PRN risperidone yesterday, which was helpful. continue current mgmt. gradually improving Sx. 05/22: no changes Reason for continued inpatient stay Substantial Risk for: rapid decompensation Time Spent With Patient Time: Total time managing care of this patient today ____ minutes.
[2023-05-23 21:00] VITALS: BP 119/80; PULSE 95; RESP 16; TEMP 36.8; O2SAT 96
[2023-05-23] MEDS: traZODone HCL 100 MG TABLET PO (21:44)
[2023-05-23] MEDS: cloZAPine 100 MG TABLET 500 MG PO (21:44)
[2023-05-23] MEDS: traZODone HCL 50 MG TABLET PO (22:59)
[2023-05-23] MEDS: Melatonin 3 MG TABLET 9 MG PO (22:59)
[2023-05-24 07:40] VITALS: BP 94/50; PULSE 81; RESP 16; TEMP 36.6; O2SAT 97
[2023-05-24] MEDS: Sertraline HCL 25 MG TABLET PO (09:14)
[2023-05-24] MEDS: Docusate Sodium 100 MG CAPSULE PO ×2 (09:14→21:32)
[2023-05-24] MEDS: clonazePAM 0.5 MG TABLET PO ×2 (09:14→21:32)
[2023-05-24] MEDS: Acetaminophen 325 MG TABLET 650 MG PO (09:33)
--- NOTE | 2023-05-24 12:07 | HO.PSYCHPN ---
Subjective Subjective Date of Service: 05/24/23 Reason For Visit: SI Subjective Notes: Conditional Voluntary Interim History: met with patient. Discussed with Nursing. Mood continues to gradually improve and voices are approaching baseline i.e. much less intense now in getting close to baseline. Denies current suicidal thoughts. Feels safe in the hospital. Sleeping well. No concerns regarding medications. Medication Compliance: Yes Side effects from medications: No Attending Groups: Intermittent Review of Systems Acute medical concerns: No Review of Systems Review of Systems Nothing acute Mental Status Exam Mental Status Exam Narrative: Adequately dressed and groomed.? Cooperative. PMR.? Speech decr rate, amount, loudness, tone. incr latency.? Thoughts linear.? Affect less blunted, hypo-intense, non-labile.? mood stable. no SI/SIBI/HI/VH expressed; AH OK. Diagnostics Vital Signs (24Hr): Vital Signs - 24 hr 05/23/23 21:00 05/24/23 07:40 Temperature 98.3 F 97.9 F Pulse Rate 95 81 Respiratory Rate 16 16 Blood Pressure 119/80 94/50 L Pulse Oximetry 96 97 Oxygen Delivery Method Room Air Room Air BMI result Body Mass Index 38.0 Labs 05/11/23 19:10 05/11/23 19:10 Medications Medications Current Medications Acetaminophen (Acetaminophen 325 Mg Tablet) 650 mg PO Q6H PRN PRN Reason: Headache/Pain Mild Scale (1-3) Last Admin: 05/24/23 09:33 Dose: 650 mg Al Hydroxide/Mg Hydroxide (Magnesium Hydrox/Alum Hydrox 30 Ml Oral.Susp) 30 ml PO Q6H PRN PRN Reason: Heartburn/Nausea Last Admin: 05/12/23 19:12 Dose: 30 ml Clonazepam (Clonazepam 0.5 Mg Tablet) 0.5 mg PO BID [facility] Last Admin: 05/24/23 09:14 Dose: 0.5 mg Clozapine (Clozapine 100 Mg Tablet) 500 mg PO BEDTIME [facility] Last Admin: 05/23/23 21:44 Dose: 500 mg Docusate Sodium (Docusate Sodium 100 Mg Capsule) 100 mg PO BID [facility] Last Admin: 05/24/23 09:14 Dose: 100 mg Ergocalciferol (Ergocalciferol (Vitamin D2) 1,250 Mcg Capsule) 1,250 mcg PO Mo [facility] Last Admin: 04/01/24 21:36 Dose: 1,250 mcg Hydroxyzine HCl (Hydroxyzine Hcl 25 Mg Tablet) 25 mg PO Q6H PRN PRN Reason: Anxiety Last Admin: 05/19/23 19:06 Dose: 25 mg Magnesium Hydroxide (Milk Of Magnesia 30 Ml Oral.Susp) 30 ml PO DAILY PRN PRN Reason: Constipation Last Admin: 05/21/23 21:33 Dose: 30 ml Melatonin (Melatonin 3 Mg Tablet) 9 mg PO BEDTIME PRN PRN Reason: insomnia Last Admin: 05/23/23 22:59 Dose: 9 mg Risperidone (Risperidone 1 Mg Tablet) 1 mg PO BID PRN PRN Reason: auditory hallucinations Last Admin: 05/21/23 16:25 Dose: 1 mg Sertraline HCl (Sertraline Hcl 25 Mg Tablet) 25 mg PO DAILY [facility] Last Admin: 05/24/23 09:14 Dose: 25 mg Trazodone HCl (Trazodone Hcl 100 Mg Tablet) 100 mg PO BEDTIME [facility] Last Admin: 05/23/23 21:44 Dose: 100 mg Trazodone HCl (Trazodone Hcl 50 Mg Tablet) 50 mg PO BEDTIME MRX1 PRN PRN Reason: Insomnia Last Admin: 05/23/23 22:59 Dose: 50 mg Allergies Allergies Allergy/AdvReac Type Severity Reaction Status Date / Time haloperidol [From HALDOL] AdvReac Unknown EYES Verified 10/07/21 16:11 ROLLED BACK Assessment & Plan Assessment & Plan (1) Suicidal ideation: Status: Acute Code(s): R45.851 - Suicidal ideations Assessment and Plan: 05/16/23 agrees to let staff know if feels will act on thoughts (2) Auditory hallucinations: Status: Acute Code(s): R44.0 - Auditory hallucinations Assessment and Plan: 05/17/23 ongoing ah- discussed distraction strategies I tried (3) Schizoaffective disorder, depressive type: Status: Acute Code(s): F25.1 - Schizoaffective disorder, depressive type (4) PTSD (post-traumatic stress disorder): Status: Acute Code(s): F43.10 - Post-traumatic stress disorder, unspecified Plan 05/12: continue home medications regimen. allow time for reconstitution. discharge to home once stabilized. keep safe. 05/13: start paxil 20 mg daily for depression, as pt reports h/o good prior experience on it. pt reported she intended to sign CV, otherwise 12b up tomorrow and she will need to discharge. stable. modest improvement in Sx. 05/14: signed CV yesterday. slept late into afternoon today, paxil DCed and zoloft started to minimize problematic drug-drug interactions. begin risperidone taper by changing 2 BID to 1 BID as of tonight; pt perceives minimal benefit from it since it was added to regimen. 05/16/23 CTP 05/17/2305/17: clozapine level 1619 (toxicity may occur over 900), norclozapine 977 (nml range 25-400). pt reports she has been informed that as long as she is not having signs of toxicity these elevated levels are OK. no signs or Sx of toxicity noted. Sx improved. continue risperidone taper, down to 0.5 mg BID as of tonight. 05/18: vacillating mood. continue current mgmt. pt supportive of continuing risperidone taper, which will be advanced tomorrow. 05/19: DC scheduled risperidone, add back risperidone 1 mg BID PRN AH per pt request. moderate improvement in mood and psychotic Sx since admission. continue current mgmt otherwise. 05/20: add melatonin per pt request, otherwise continue current mgmt. mood fluctuating, AH OK. vague but indicating some improvement. 05/21: mood stable today. presentation stable. had PRN risperidone yesterday, which was helpful. continue current mgmt. gradually improving Sx. 05/22: no changes 05/23: no changes Reason for continued inpatient stay Substantial Risk for: inability to function Time Spent With Patient Time: Total time managing care of this patient today ____ minutes.
[2023-05-24 21:00] VITALS: BP 126/82; PULSE 97; RESP 16; TEMP 36.9; O2SAT 97
[2023-05-24] MEDS: cloZAPine 100 MG TABLET 500 MG PO (21:30)
[2023-05-24] MEDS: traZODone HCL 100 MG TABLET PO (21:32)
[2023-05-24] MEDS: traZODone HCL 50 MG TABLET PO (21:32)
[2023-05-24] MEDS: Melatonin 3 MG TABLET 9 MG PO (21:33)
[2023-05-25 09:09] VITALS: BP 126/88; PULSE 88; RESP 16; TEMP 36.5; O2SAT 97
[2023-05-25] MEDS: Docusate Sodium 100 MG CAPSULE PO ×2 (09:09→21:45)
[2023-05-25] MEDS: clonazePAM 0.5 MG TABLET PO ×2 (09:09→21:45)
[2023-05-25] MEDS: Sertraline HCL 25 MG TABLET PO (09:09)
--- NOTE | 2023-05-25 15:58 | P.PNPSI_ITS ---
Subjective Subjective Date of Service: 05/25/23 Reason For Visit: SI Interim History: sleeping mid-morning, rousable. states she is sleeping well in the night and acknowledges daytime sleepiness. MD broaches her high dose/level of clozapine and suggests lowering the dose to help with daytime sedation. she declines any dose reduction, stating that they tried that once and it didn't go well. she states her Sx worsened substantially and her clozaril had to be returned to prior dosing level. asking about discharge thursday so she can go on vacation with her family. per staff, dep/anx 3. taking meds. faint AH. increased AH eves. slept 7-8 hours. Mental Status Exam Mental Status Exam Narrative: Adequately dressed and groomed.? Cooperative. PMR.? Speech decr rate, amount, loudness, tone. incr latency.? Thoughts linear.? Affect blunted, hypo-intense, non-labile.? mood OK. no SI/SIBI/HI/VH expressed; AH waxing and waning. Diagnostics Vital Signs (24Hr): Vital Signs - 24 hr 05/24/23 21:00 05/25/23 09:09 Temperature 98.4 F 97.7 F Pulse Rate 97 88 Respiratory Rate 16 16 Blood Pressure 126/82 126/88 Pulse Oximetry 97 97 Oxygen Delivery Method Room Air Room Air BMI result Body Mass Index 38.0 Labs 05/11/23 19:10 05/11/23 19:10 Medications Medications Current Medications Acetaminophen (Acetaminophen 325 Mg Tablet) 650 mg PO Q6H PRN PRN Reason: Headache/Pain Mild Scale (1-3) Last Admin: 05/24/23 09:33 Dose: 650 mg Al Hydroxide/Mg Hydroxide (Magnesium Hydrox/Alum Hydrox 30 Ml Oral.Susp) 30 ml PO Q6H PRN PRN Reason: Heartburn/Nausea Last Admin: 05/12/23 19:12 Dose: 30 ml Clonazepam (Clonazepam 0.5 Mg Tablet) 0.5 mg PO BID [facility] Last Admin: 05/25/23 09:09 Dose: 0.5 mg Clozapine (Clozapine 100 Mg Tablet) 500 mg PO BEDTIME [facility] Last Admin: 05/24/23 21:30 Dose: 500 mg Docusate Sodium (Docusate Sodium 100 Mg Capsule) 100 mg PO BID [facility] Last Admin: 05/25/23 09:09 Dose: 100 mg Ergocalciferol (Ergocalciferol (Vitamin D2) 1,250 Mcg Capsule) 1,250 mcg PO Mo [facility] Last Admin: 05/18/23 21:36 Dose: 1,250 mcg Hydroxyzine HCl (Hydroxyzine Hcl 25 Mg Tablet) 25 mg PO Q6H PRN PRN Reason: Anxiety Last Admin: 05/19/23 19:06 Dose: 25 mg Magnesium Hydroxide (Milk Of Magnesia 30 Ml Oral.Susp) 30 ml PO DAILY PRN PRN Reason: Constipation Last Admin: 05/21/23 21:33 Dose: 30 ml Melatonin (Melatonin 3 Mg Tablet) 9 mg PO BEDTIME PRN PRN Reason: insomnia Last Admin: 05/24/23 21:33 Dose: 9 mg Risperidone (Risperidone 1 Mg Tablet) 1 mg PO BID PRN PRN Reason: auditory hallucinations Last Admin: 05/21/23 16:25 Dose: 1 mg Sertraline HCl (Sertraline Hcl 25 Mg Tablet) 25 mg PO DAILY [facility] Last Admin: 05/25/23 09:09 Dose: 25 mg Trazodone HCl (Trazodone Hcl 100 Mg Tablet) 100 mg PO BEDTIME [facility] Last Admin: 05/24/23 21:32 Dose: 100 mg Trazodone HCl (Trazodone Hcl 50 Mg Tablet) 50 mg PO BEDTIME MRX1 PRN PRN Reason: Insomnia Last Admin: 05/24/23 21:32 Dose: 50 mg Allergies Allergies Allergy/AdvReac Type Severity Reaction Status Date / Time haloperidol [From HALDOL] AdvReac Unknown EYES Verified 10/07/21 16:11 ROLLED BACK Assessment & Plan Assessment & Plan (1) Suicidal ideation: Status: Acute Code(s): R45.851 - Suicidal ideations Assessment and Plan: 05/16/23 agrees to let staff know if feels will act on thoughts (2) Auditory hallucinations: Status: Acute Code(s): R44.0 - Auditory hallucinations Assessment and Plan: 05/17/23 ongoing ah- discussed distraction strategies I tried (3) Schizoaffective disorder, depressive type: Status: Acute Code(s): F25.1 - Schizoaffective disorder, depressive type (4) PTSD (post-traumatic stress disorder): Status: Acute Code(s): F43.10 - Post-traumatic stress disorder, unspecified Plan 05/12: continue home medications regimen. allow time for reconstitution. discharge to home once stabilized. keep safe. 05/13: start paxil 20 mg daily for depression, as pt reports h/o good prior experience on it. pt reported she intended to sign CV, otherwise 12b up tomorrow and she will need to discharge. stable. modest improvement in Sx. 05/14: signed CV yesterday. slept late into afternoon today, paxil DCed and zoloft started to minimize problematic drug-drug interactions. begin risperidone taper by changing 2 BID to 1 BID as of tonight; pt perceives minimal benefit from it since it was added to regimen. 05/16/23 CTP 05/17/2305/17: clozapine level 1619 (toxicity may occur over 900), norclozapine 977 (nml range 25-400). pt reports she has been informed that as long as she is not having signs of toxicity these elevated levels are OK. no signs or Sx of toxicity noted. Sx improved. continue risperidone taper, down to 0.5 mg BID as of tonight. 05/18: vacillating mood. continue current mgmt. pt supportive of continuing risperidone taper, which will be advanced tomorrow. 05/19: DC scheduled risperidone, add back risperidone 1 mg BID PRN AH per pt request. moderate improvement in mood and psychotic Sx since admission. continue current mgmt otherwise. 05/20: add melatonin per pt request, otherwise continue current mgmt. mood fluctuating, AH OK. vague but indicating some improvement. 05/21: mood stable today. presentation stable. had PRN risperidone yesterday, which was helpful. continue current mgmt. gradually improving Sx. 05/22: no changes 05/23: no changes 05/24: continue current mgmt. declines clozapine dose reduction. asking for DC thursday. continue current mgmt. Reason for continued inpatient stay Substantial Risk for: harm to self, inability to function and rapid decompensation Time Spent With Patient Time: Total time managing care of this patient today _25___ minutes.
[2023-05-25] MEDS: risperiDONE 1 MG TABLET PO (17:53)
[2023-05-25 20:14] VITALS: BP 125/93; PULSE 95; RESP 16; TEMP 37.1; O2SAT 96
[2023-05-25] MEDS: traZODone HCL 100 MG TABLET PO (21:45)
[2023-05-25] MEDS: traZODone HCL 50 MG TABLET PO (21:45)
[2023-05-25] MEDS: Melatonin 3 MG TABLET 9 MG PO (21:45)
[2023-05-25] MEDS: cloZAPine 100 MG TABLET 500 MG PO (21:45)
[2023-05-25] MEDS: Ergocalciferol (Vitamin D2) 1,250 MCG CAPSULE 1250 MCG PO (22:14)
[2023-05-26 06:00] VITALS: BP 114/67; PULSE 78; RESP 18; TEMP 36.4; O2SAT 96
[2023-05-26] MEDS: clonazePAM 0.5 MG TABLET PO ×2 (10:07→21:35)
[2023-05-26] MEDS: Sertraline HCL 25 MG TABLET PO (10:07)
[2023-05-26] MEDS: Docusate Sodium 100 MG CAPSULE PO ×2 (10:07→21:35)
--- NOTE | 2023-05-26 17:03 | HO.PSYCHPN ---
Subjective Subjective Date of Service: 05/26/23 Reason For Visit: SI Interim History: calm, cooperative. states she declined to have blood drawn once, but she is generally speaking OK with blood draws. AH are background gibberish, denies SI. would like to discharge thursday, looking forward to vacation. her mother is coming to help. per staff, attended 2 groups yesterday. Mental Status Exam Mental Status Exam Narrative: Adequately dressed and groomed.? Cooperative. PMR.? Speech decr rate, amount, loudness, tone. incr latency.? Thoughts linear.? Affect blunted, hypo-intense, non-labile.? mood OK. no SI. no SIBI/HI/VH expressed; AH background gibberish. Diagnostics Vital Signs (24Hr): Vital Signs - 24 hr 05/25/23 20:14 05/26/23 06:00 Temperature 98.7 F 97.5 F Pulse Rate 95 78 Respiratory Rate 16 18 Blood Pressure 125/93 H 114/67 Pulse Oximetry 96 96 Oxygen Delivery Method Room Air Room Air BMI result Body Mass Index 38.0 Labs 05/11/23 19:10 05/11/23 19:10 Medications Medications Current Medications Acetaminophen (Acetaminophen 325 Mg Tablet) 650 mg PO Q6H PRN PRN Reason: Headache/Pain Mild Scale (1-3) Last Admin: 05/24/23 09:33 Dose: 650 mg Al Hydroxide/Mg Hydroxide (Magnesium Hydrox/Alum Hydrox 30 Ml Oral.Susp) 30 ml PO Q6H PRN PRN Reason: Heartburn/Nausea Last Admin: 05/12/23 19:12 Dose: 30 ml Clonazepam (Clonazepam 0.5 Mg Tablet) 0.5 mg PO BID [facility] Last Admin: 05/26/23 10:07 Dose: 0.5 mg Clozapine (Clozapine 100 Mg Tablet) 500 mg PO BEDTIME [facility] Last Admin: 05/25/23 21:45 Dose: 500 mg Docusate Sodium (Docusate Sodium 100 Mg Capsule) 100 mg PO BID [facility] Last Admin: 05/26/23 10:07 Dose: 100 mg Ergocalciferol (Ergocalciferol (Vitamin D2) 1,250 Mcg Capsule) 1,250 mcg PO Mo [facility] Last Admin: 05/25/23 22:14 Dose: 1,250 mcg Hydroxyzine HCl (Hydroxyzine Hcl 25 Mg Tablet) 25 mg PO Q6H PRN PRN Reason: Anxiety Last Admin: 05/19/23 19:06 Dose: 25 mg Magnesium Hydroxide (Milk Of Magnesia 30 Ml Oral.Susp) 30 ml PO DAILY PRN PRN Reason: Constipation Last Admin: 05/21/23 21:33 Dose: 30 ml Melatonin (Melatonin 3 Mg Tablet) 9 mg PO BEDTIME PRN PRN Reason: insomnia Last Admin: 05/25/23 21:45 Dose: 9 mg Risperidone (Risperidone 1 Mg Tablet) 1 mg PO BID PRN PRN Reason: auditory hallucinations Last Admin: 05/25/23 17:53 Dose: 1 mg Sertraline HCl (Sertraline Hcl 25 Mg Tablet) 25 mg PO DAILY [facility] Last Admin: 05/26/23 10:07 Dose: 25 mg Trazodone HCl (Trazodone Hcl 100 Mg Tablet) 100 mg PO BEDTIME [facility] Last Admin: 05/25/23 21:45 Dose: 100 mg Trazodone HCl (Trazodone Hcl 50 Mg Tablet) 50 mg PO BEDTIME MRX1 PRN PRN Reason: Insomnia Last Admin: 05/25/23 21:45 Dose: 50 mg Allergies Allergies Allergy/AdvReac Type Severity Reaction Status Date / Time haloperidol [From HALDOL] AdvReac Unknown EYES Verified 10/07/21 16:11 ROLLED BACK Assessment & Plan Assessment & Plan (1) Suicidal ideation: Status: Acute Code(s): R45.851 - Suicidal ideations Assessment and Plan: 05/16/23 agrees to let staff know if feels will act on thoughts (2) Auditory hallucinations: Status: Acute Code(s): R44.0 - Auditory hallucinations Assessment and Plan: 05/17/23 ongoing - discussed distraction strategies I tried (3) Schizoaffective disorder, depressive type: Status: Acute Code(s): F25.1 - Schizoaffective disorder, depressive type (4) PTSD (post-traumatic stress disorder): Status: Acute Code(s): F43.10 - Post-traumatic stress disorder, unspecified Plan 05/12: continue home medications regimen. allow time for reconstitution. discharge to home once stabilized. keep safe. 05/13: start paxil 20 mg daily for depression, as pt reports h/o good prior experience on it. pt reported she intended to sign CV, otherwise 12b up tomorrow and she will need to discharge. stable. modest improvement in Sx. 05/14: signed CV yesterday. slept late into afternoon today, paxil DCed and zoloft started to minimize problematic drug-drug interactions. begin risperidone taper by changing 2 BID to 1 BID as of tonight; pt perceives minimal benefit from it since it was added to regimen. 05/16/23 CTP 05/17/2305/17: clozapine level 1619 (toxicity may occur over 900), norclozapine 977 (nml range 25-400). pt reports she has been informed that as long as she is not having signs of toxicity these elevated levels are OK. no signs or Sx of toxicity noted. Sx improved. continue risperidone taper, down to 0.5 mg BID as of tonight. 05/18: vacillating mood. continue current mgmt. pt supportive of continuing risperidone taper, which will be advanced tomorrow. 05/19: DC scheduled risperidone, add back risperidone 1 mg BID PRN AH per pt request. moderate improvement in mood and psychotic Sx since admission. continue current mgmt otherwise. 05/20: add melatonin per pt request, otherwise continue current mgmt. mood fluctuating, AH OK. vague but indicating some improvement. 05/21: mood stable today. presentation stable. had PRN risperidone yesterday, which was helpful. continue current mgmt. gradually improving Sx. 05/22: no changes 05/23: no changes 05/24: continue current mgmt. declines clozapine dose reduction. asking for DC thursday. continue current mgmt. 05/25: denies SI. AH are background [facility]. planning for thursday discharge. continue current mgmt. Reason for continued inpatient stay Substantial Risk for: harm to self, inability to function and rapid decompensation Time Spent With Patient Time: Total time managing care of this patient today __25__ minutes.
[2023-05-26 20:00] VITALS: BP 135/82; PULSE 113; RESP 18; TEMP 36.9; O2SAT 99
[2023-05-26] MEDS: Melatonin 3 MG TABLET 9 MG PO (21:33)
[2023-05-26] MEDS: cloZAPine 100 MG TABLET 500 MG PO (21:34)
[2023-05-26] MEDS: traZODone HCL 100 MG TABLET PO (21:34)
[2023-05-27 06:00] VITALS: BP 92/56; PULSE 82; RESP 16; TEMP 36.4; O2SAT 95
[2023-05-27 08:28] LABS: Neut%MD 47.8 %; Neutrophils Absolute Auto 3.6 x10*3/uL (2.0-8.3); WBCANC 7.5 X10*3/uL
[2023-05-27] MEDS: clonazePAM 0.5 MG TABLET PO ×2 (09:33→21:37)
[2023-05-27] MEDS: Docusate Sodium 100 MG CAPSULE PO ×2 (09:33→21:37)
[2023-05-27] MEDS: Sertraline HCL 25 MG TABLET PO (09:33)
--- NOTE | 2023-05-27 15:37 | P.PNPSI_ITS ---
Subjective Subjective Date of Service: 05/27/23 Reason For Visit: SI Interim History: no change in presentation. denies SI, AH minimized. planning for thursday noon discharge. per staff, +, attending grousp in afternoon. taking meds. slept all NOC. Mental Status Exam Mental Status Exam Narrative: Adequately dressed and groomed.? Cooperative. PMR.? Speech decr rate, amount, loudness, tone. incr latency.? Thoughts linear.? Affect blunted, hypo-intense, non-labile.? mood OK. no SI. no SIBI/HI/VH expressed; background. Diagnostics Vital Signs (24Hr): Vital Signs - 24 hr 05/26/23 20:00 05/27/23 06:00 Temperature 98.5 F 97.6 F Pulse Rate 113 H 82 Respiratory Rate 18 16 Blood Pressure 135/82 92/56 L Pulse Oximetry 99 95 Oxygen Delivery Method Room Air Room Air BMI result Body Mass Index 38.0 Labs 05/11/23 19:10 05/11/23 19:10 Labs: Laboratory Results - last 48 hr 05/27/23 08:09 Absolute Neuts (auto) 3.6 Medications Medications Current Medications Acetaminophen (Acetaminophen 325 Mg Tablet) 650 mg PO Q6H PRN PRN Reason: Headache/Pain Mild Scale (1-3) Last Admin: 05/24/23 09:33 Dose: 650 mg Al Hydroxide/Mg Hydroxide (Magnesium Hydrox/Alum Hydrox 30 Ml Oral.Susp) 30 ml PO Q6H PRN PRN Reason: Heartburn/Nausea Last Admin: 05/12/23 19:12 Dose: 30 ml Clonazepam (Clonazepam 0.5 Mg Tablet) 0.5 mg PO BID [facility] Last Admin: 05/27/23 09:33 Dose: 0.5 mg Clozapine (Clozapine 100 Mg Tablet) 500 mg PO BEDTIME [facility] Last Admin: 05/26/23 21:34 Dose: 500 mg Docusate Sodium (Docusate Sodium 100 Mg Capsule) 100 mg PO BID [facility] Last Admin: 05/27/23 09:33 Dose: 100 mg Ergocalciferol (Ergocalciferol (Vitamin D2) 1,250 Mcg Capsule) 1,250 mcg PO Mo [facility] Last Admin: 05/25/23 22:14 Dose: 1,250 mcg Hydroxyzine HCl (Hydroxyzine Hcl 25 Mg Tablet) 25 mg PO Q6H PRN PRN Reason: Anxiety Last Admin: 05/19/23 19:06 Dose: 25 mg Magnesium Hydroxide (Milk Of Magnesia 30 Ml Oral.Susp) 30 ml PO DAILY PRN PRN Reason: Constipation Last Admin: 05/21/23 21:33 Dose: 30 ml Melatonin (Melatonin 3 Mg Tablet) 9 mg PO BEDTIME PRN PRN Reason: insomnia Last Admin: 05/26/23 21:33 Dose: 9 mg Risperidone (Risperidone 1 Mg Tablet) 1 mg PO BID PRN PRN Reason: auditory hallucinations Last Admin: 05/25/23 17:53 Dose: 1 mg Sertraline HCl (Sertraline Hcl 25 Mg Tablet) 25 mg PO DAILY [facility] Last Admin: 05/27/23 09:33 Dose: 25 mg Trazodone HCl (Trazodone Hcl 100 Mg Tablet) 100 mg PO BEDTIME [facility] Last Admin: 05/26/23 21:34 Dose: 100 mg Trazodone HCl (Trazodone Hcl 50 Mg Tablet) 50 mg PO BEDTIME MRX1 PRN PRN Reason: Insomnia Last Admin: 05/25/23 21:45 Dose: 50 mg Allergies Allergies Allergy/AdvReac Type Severity Reaction Status Date / Time haloperidol [From HALDOL] AdvReac Unknown EYES Verified 10/07/21 16:11 ROLLED BACK Assessment & Plan Assessment & Plan (1) Suicidal ideation: Status: Acute Code(s): R45.851 - Suicidal ideations Assessment and Plan: 05/16/23 agrees to let staff know if feels will act on thoughts (2) Auditory hallucinations: Status: Acute Code(s): R44.0 - Auditory hallucinations Assessment and Plan: 05/17/23 ongoing - discussed distraction strategies I tried (3) Schizoaffective disorder, depressive type: Status: Acute Code(s): F25.1 - Schizoaffective disorder, depressive type (4) PTSD (post-traumatic stress disorder): Status: Acute Code(s): F43.10 - Post-traumatic stress disorder, unspecified Plan 05/12: continue home medications regimen. allow time for reconstitution. discharge to home once stabilized. keep safe. 05/13: start paxil 20 mg daily for depression, as pt reports h/o good prior experience on it. pt reported she intended to sign CV, otherwise 12b up tomorrow and she will need to discharge. stable. modest improvement in Sx. 05/14: signed CV yesterday. slept late into afternoon today, paxil DCed and zoloft started to minimize problematic drug-drug interactions. begin risperidone taper by changing 2 BID to 1 BID as of tonight; pt perceives minimal benefit from it since it was added to regimen. 05/16/23 CTP 05/17/2305/17: clozapine level 1619 (toxicity may occur over 900), norclozapine 977 (nml range 25-400). pt reports she has been informed that as long as she is not having signs of toxicity these elevated levels are OK. no signs or Sx of toxicity noted. Sx improved. continue risperidone taper, down to 0.5 mg BID as of tonight. 05/18: vacillating mood. continue current mgmt. pt supportive of continuing risperidone taper, which will be advanced tomorrow. 05/19: DC scheduled risperidone, add back risperidone 1 mg BID PRN AH per pt request. moderate improvement in mood and psychotic Sx since admission. continue current mgmt otherwise. 05/20: add melatonin per pt request, otherwise continue current mgmt. mood fluctuating, AH OK. vague but indicating some improvement. 05/21: mood stable today. presentation stable. had PRN risperidone yesterday, which was helpful. continue current mgmt. gradually improving Sx. 05/22: no changes 05/23: no changes 05/24: continue current mgmt. declines clozapine dose reduction. asking for DC thursday. continue current mgmt. 05/25: denies SI. AH are background gibberish. planning for thursday discharge. continue current mgmt. 05/26: stable presentation. planning for thursday noon discharge. continue current mgmt. Reason for continued inpatient stay Substantial Risk for: inability to function and rapid decompensation Time Spent With Patient Time: Total time managing care of this patient today _25___ minutes.
[2023-05-27] MEDS: risperiDONE 1 MG TABLET PO (16:59)
[2023-05-27] MEDS: traZODone HCL 100 MG TABLET PO (21:37)
[2023-05-27] MEDS: cloZAPine 100 MG TABLET 500 MG PO (21:37)
[2023-05-27] MEDS: Melatonin 3 MG TABLET 9 MG PO (22:25)
[2023-05-27 22:31] VITALS: BP 119/79; PULSE 100; RESP 18; TEMP 36.9; O2SAT 97
[2023-05-28] MEDS: clonazePAM 0.5 MG TABLET PO ×2 (08:54→21:36)
[2023-05-28] MEDS: Docusate Sodium 100 MG CAPSULE PO ×2 (08:55→21:36)
[2023-05-28] MEDS: Sertraline HCL 25 MG TABLET PO (08:55)
[2023-05-28 10:10] VITALS: BP 100/57; PULSE 86; RESP 20; TEMP 36.4; O2SAT 95
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
[2023-05-28] MEDS: risperiDONE 1 MG TABLET PO (19:22)
[2023-05-28] MEDS: hydrOXYzine HCL 25 MG TABLET PO (19:22)
[2023-05-28 20:10] VITALS: BP 113/69; PULSE 94; RESP 16; TEMP 36.9; O2SAT 96
[2023-05-28] MEDS: cloZAPine 100 MG TABLET 500 MG PO (21:35)
[2023-05-28] MEDS: traZODone HCL 100 MG TABLET PO (21:36)
[2023-05-28] MEDS: Melatonin 3 MG TABLET 9 MG PO (21:37)
[2023-05-29 07:45] VITALS: BP 132/87; PULSE 85; RESP 14; TEMP 36.4; O2SAT 96
[2023-05-29] MEDS: Sertraline HCL 25 MG TABLET PO (08:45)
[2023-05-29] MEDS: Docusate Sodium 100 MG CAPSULE PO (08:45)
[2023-05-29] MEDS: clonazePAM 0.5 MG TABLET PO (08:45)
== END 2023-05-29 11:58 | disposition home or self-care (01) | DRG 750 ==
LOC: HO.ED 05-12 11:58 → HO.PADLT16 05-12 12:17
PROVIDERS: Physician Assistant Medical; Admitting Provider Psychiatry & Neurology Psychiatry; Emergency Provider Emergency Medicine Emergency Medical Services; Visit Provider Psychiatry & Neurology Psychiatry
DX: F25.1 Schizoaffective disorder, depressive type (principal); R45.851 Suicidal ideations; F43.12 Post-traumatic stress disorder, chronic; Z20.822 Contact with and (suspected) exposure to COVID-19; Z79.899 Other long term (current) drug therapy
CPT/HCPCS: 36415; 80053; 80143; 80159; 80179; 80307; 81001; 84702; 85025; 85048; 87635; 93005; 99285

== ENCOUNTER → 2023-05-12 07:36 | Outpatient (BNV) | payer BC, SELFPAY | PROVIDERS: Admitting Provider Psychiatry & Neurology Psychiatry; Emergency Provider Emergency Medicine Emergency Medical Services; Visit Provider Internal Medicine Cardiovascular Disease | DX: R07.9 Chest pain, unspecified (principal) | CPT/HCPCS: 93010 ==

== ENCOUNTER → 2023-05-12 10:39 | Outpatient (BNV) | payer BC, SELFPAY | PROVIDERS: Admitting Provider Psychiatry & Neurology Psychiatry; Emergency Provider Emergency Medicine Emergency Medical Services; Visit Provider Psychiatry & Neurology Psychiatry | DX: F25.1 Schizoaffective disorder, depressive type (principal); R45.851 Suicidal ideations; F43.11 Post-traumatic stress disorder, acute | CPT/HCPCS: 90792; 99231; 99232; 99239 ==

== ENCOUNTER 2023-06-04 12:16 | Outpatient (REF) | payer BC, SELFPAY ==
[2023-06-04 13:09] LABS: MANUAL DIFF FLAG NO
[2023-06-04 13:29] LABS: Basophils Percent Auto 0.5 % (0-2); Eosinophils Absolute Auto 0.1 X10*3/uL (0.0-0.4); Eosinophils Percent Auto 1.9 % (0-4); Hematocrit 38.8 % (37.0-47.0); Hemoglobin 12.7 g/dl (12.0-16.0); Imm Gran Abs Auto 0.04 X10*3/uL (0.00-0.03); Imm Gran Pct Auto 0.5 % (0.0-0.4); Lymphocytes Absolute Auto 2.6 X10*3/uL (1.2-4.9); Lymphocytes Percent Auto 35.4 % (20-40); Mean Corpuscular HGB Conc 32.7 g/dl (31.0-35.0); Mean Corpuscular Volume 88.6 fL (80.0-98.0); Mean Platelet Volume 11.5 fL (9.4-12.3); Monocytes Absolute Auto 0.4 X10*3/uL (0.1-1.2); Monocytes Percent Auto 5.6 % (2-11); Neutrophils Absolute Auto 4.1 x10*3/uL (2.0-8.3); Neutrophils Percent Auto 56.1 % (45-73); Platelet Count 280 X10*3/uL (160-400); Red Blood Count 4.38 X10*6/uL (4.20-5.50); Red Cell Distribution Width 14.6 % (11.0-16.0); White Blood Count 7.4 X10*3/uL (4.8-10.8)
== END 2023-06-04 12:17 | disposition home or self-care (01) ==
LOC: HO.HMGCLR 12:16
PROVIDERS: Visit Provider Psychiatry & Neurology Psychiatry
DX: F20.9 Schizophrenia, unspecified (principal); Z79.899 Other long term (current) drug therapy
CPT/HCPCS: 36415; 85025

== ENCOUNTER 2023-06-24 09:14 | Outpatient (REF) | payer BC, SELFPAY ==
[2023-06-24 13:55] LABS: MANUAL DIFF FLAG NO
[2023-06-24 14:00] LABS: Basophils Absolute Auto 0.1 X10*3/uL (0.0-0.2); Basophils Percent Auto 0.9 % (0-2); Eosinophils Absolute Auto 0.1 X10*3/uL (0.0-0.4); Eosinophils Percent Auto 1.7 % (0-4); Hematocrit 40.5 % (37.0-47.0); Hemoglobin 13.3 g/dl (12.0-16.0); Imm Gran Abs Auto 0.04 X10*3/uL (0.00-0.03); Imm Gran Pct Auto 0.5 % (0.0-0.4); Lymphocytes Absolute Auto 3.3 X10*3/uL (1.2-4.9); Mean Corpuscular HGB Conc 32.8 g/dl (31.0-35.0); Mean Corpuscular Hemoglobin 28.9 pg (27.0-33.0); Mean Platelet Volume 11.7 fL (9.4-12.3); Monocytes Absolute Auto 0.5 X10*3/uL (0.1-1.2); Monocytes Percent Auto 6.2 % (2-11); Neutrophils Absolute Auto 3.8 x10*3/uL (2.0-8.3); Neutrophils Percent Auto 48.7 % (45-73); Platelet Count 313 X10*3/uL (160-400); Red Cell Distribution Width 14.6 % (11.0-16.0); White Blood Count 7.8 X10*3/uL (4.8-10.8)
== END 2023-06-24 09:15 | disposition home or self-care (01) ==
LOC: HO.HMGCLR 09:14
PROVIDERS: Visit Provider Psychiatry & Neurology Psychiatry
DX: F25.0 Schizoaffective disorder, bipolar type (principal); Z79.899 Other long term (current) drug therapy
CPT/HCPCS: 36415; 85025

== ENCOUNTER 2023-07-22 11:58 | Outpatient (REF) | payer BC, SELFPAY ==
[2023-07-22 14:04] LABS: MANUAL DIFF FLAG NO
[2023-07-22 14:12] LABS: Basophils Absolute Auto 0.1 X10*3/uL (0.0-0.2); Basophils Percent Auto 0.9 % (0-2); Eosinophils Absolute Auto 0.1 X10*3/uL (0.0-0.4); Eosinophils Percent Auto 1.9 % (0-4); Hematocrit 39.3 % (37.0-47.0); Hemoglobin 12.9 g/dl (12.0-16.0); Imm Gran Abs Auto 0.03 X10*3/uL (0.00-0.03); Imm Gran Pct Auto 0.5 % (0.0-0.4); Lymphocytes Percent Auto 35.3 % (20-40); Mean Corpuscular HGB Conc 32.8 g/dl (31.0-35.0); Mean Corpuscular Hemoglobin 29.1 pg (27.0-33.0); Mean Corpuscular Volume 88.5 fL (80.0-98.0); Mean Platelet Volume 11.6 fL (9.4-12.3); Monocytes Absolute Auto 0.5 X10*3/uL (0.1-1.2); Monocytes Percent Auto 9.2 % (2-11); Neutrophils Percent Auto 52.2 % (45-73); Platelet Count 239 X10*3/uL (160-400); Red Blood Count 4.44 X10*6/uL (4.20-5.50); Red Cell Distribution Width 15.2 % (11.0-16.0); White Blood Count 5.7 X10*3/uL (4.8-10.8)
== END 2023-07-22 11:59 | disposition home or self-care (01) ==
LOC: HO.HMGCLR 11:58
PROVIDERS: Visit Provider Psychiatry & Neurology Psychiatry
DX: F20.9 Schizophrenia, unspecified (principal); F25.0 Schizoaffective disorder, bipolar type; Z79.899 Other long term (current) drug therapy
CPT/HCPCS: 36415; 85025

== ENCOUNTER 2023-08-24 13:00 | Outpatient (REF) | payer BC, SELFPAY ==
[2023-08-24 15:58] LABS: MANUAL DIFF FLAG NO
[2023-08-24 15:59] LABS: Basophils Absolute Auto 0.1 X10*3/uL (0.0-0.2); Eosinophils Absolute Auto 0.1 X10*3/uL (0.0-0.4); Eosinophils Percent Auto 1.7 % (0-4); Hematocrit 39.6 % (37.0-47.0); Hemoglobin 13.2 g/dl (12.0-16.0); Imm Gran Abs Auto 0.03 X10*3/uL (0.00-0.03); Imm Gran Pct Auto 0.4 % (0.0-0.4); Lymphocytes Absolute Auto 3.1 X10*3/uL (1.2-4.9); Lymphocytes Percent Auto 43.5 % (20-40); Mean Corpuscular HGB Conc 33.3 g/dl (31.0-35.0); Mean Corpuscular Hemoglobin 29.3 pg (27.0-33.0); Mean Corpuscular Volume 87.8 fL (80.0-98.0); Mean Platelet Volume 11.3 fL (9.4-12.3); Monocytes Absolute Auto 0.4 X10*3/uL (0.1-1.2); Monocytes Percent Auto 5.8 % (2-11); Neutrophils Absolute Auto 3.4 x10*3/uL (2.0-8.3); Neutrophils Percent Auto 47.6 % (45-73); Platelet Count 276 X10*3/uL (160-400); Red Blood Count 4.51 X10*6/uL (4.20-5.50); White Blood Count 7.1 X10*3/uL (4.8-10.8)
== END 2023-08-24 13:01 | disposition home or self-care (01) ==
LOC: HO.HMGCLR 13:00
PROVIDERS: Visit Provider Psychiatry & Neurology Psychiatry
DX: F20.9 Schizophrenia, unspecified (principal); F25.0 Schizoaffective disorder, bipolar type; Z79.899 Other long term (current) drug therapy
CPT/HCPCS: 36415; 85025

== ENCOUNTER 2023-09-21 11:09 | Outpatient (REF) | payer BC, SELFPAY ==
[2023-09-21 13:04] LABS: MANUAL DIFF FLAG NO
[2023-09-21 13:23] LABS: Basophils Absolute Auto 0.1 X10*3/uL (0.0-0.2); Basophils Percent Auto 0.8 % (0-2); Eosinophils Absolute Auto 0.1 X10*3/uL (0.0-0.4); Hematocrit 39.8 % (37.0-47.0); Hemoglobin 13.2 g/dl (12.0-16.0); Imm Gran Abs Auto 0.04 X10*3/uL (0.00-0.03); Imm Gran Pct Auto 0.6 % (0.0-0.4); Lymphocytes Absolute Auto 3.7 X10*3/uL (1.2-4.9); Lymphocytes Percent Auto 51.9 % (20-40); Mean Corpuscular HGB Conc 33.2 g/dl (31.0-35.0); Mean Corpuscular Hemoglobin 28.8 pg (27.0-33.0); Mean Corpuscular Volume 86.7 fL (80.0-98.0); Mean Platelet Volume 11.4 fL (9.4-12.3); Monocytes Absolute Auto 0.4 X10*3/uL (0.1-1.2); Monocytes Percent Auto 5.5 % (2-11); Neutrophils Absolute Auto 2.8 x10*3/uL (2.0-8.3); Neutrophils Percent Auto 39.2 % (45-73); Platelet Count 310 X10*3/uL (160-400); Red Blood Count 4.59 X10*6/uL (4.20-5.50); Red Cell Distribution Width 14.6 % (11.0-16.0); White Blood Count 7.2 X10*3/uL (4.8-10.8)
== END 2023-09-21 11:10 | disposition home or self-care (01) ==
LOC: HO.HMGCLR 11:09
PROVIDERS: Visit Provider Psychiatry & Neurology Psychiatry
DX: F20.9 Schizophrenia, unspecified (principal); Z79.899 Other long term (current) drug therapy
CPT/HCPCS: 36415; 85025

== ENCOUNTER 2023-10-20 10:22 | Outpatient (REF) | payer BC, SELFPAY ==
[2023-10-20 13:15] LABS: MANUAL DIFF FLAG NO
[2023-10-20 13:36] LABS: Basophils Absolute Auto 0.1 X10*3/uL (0.0-0.2); Basophils Percent Auto 0.8 % (0-2); Eosinophils Absolute Auto 0.1 X10*3/uL (0.0-0.4); Eosinophils Percent Auto 1.6 % (0-4); Hematocrit 40.2 % (37.0-47.0); Imm Gran Abs Auto 0.03 X10*3/uL (0.00-0.03); Imm Gran Pct Auto 0.4 % (0.0-0.4); Lymphocytes Absolute Auto 3.1 X10*3/uL (1.2-4.9); Lymphocytes Percent Auto 43.6 % (20-40); Mean Corpuscular HGB Conc 32.3 g/dl (31.0-35.0); Mean Corpuscular Hemoglobin 28.6 pg (27.0-33.0); Mean Corpuscular Volume 88.5 fL (80.0-98.0); Monocytes Absolute Auto 0.4 X10*3/uL (0.1-1.2); Monocytes Percent Auto 5.9 % (2-11); Neutrophils Absolute Auto 3.4 x10*3/uL (2.0-8.3); Neutrophils Percent Auto 47.7 % (45-73); Platelet Count 255 X10*3/uL (160-400); Red Blood Count 4.54 X10*6/uL (4.20-5.50); Red Cell Distribution Width 14.8 % (11.0-16.0); White Blood Count 7.1 X10*3/uL (4.8-10.8)
== END 2023-10-20 10:23 | disposition home or self-care (01) ==
LOC: HO.HMGCLR 10:22
PROVIDERS: Visit Provider Psychiatry & Neurology Psychiatry
DX: Z79.899 Other long term (current) drug therapy (principal); F20.9 Schizophrenia, unspecified; F25.0 Schizoaffective disorder, bipolar type
CPT/HCPCS: 36415; 85025

== ENCOUNTER → 2023-11-09 10:45 | Outpatient (BNV) | payer BC, SELFPAY | PROVIDERS: Visit Provider Psychiatry & Neurology Psychiatry | DX: F25.1 Schizoaffective disorder, depressive type (principal); F43.10 Post-traumatic stress disorder, unspecified; F41.9 Anxiety disorder, unspecified | CPT/HCPCS: 90792; 99213; 99214 ==

== ENCOUNTER 2023-11-17 14:10 | Outpatient (REF) | payer BC, SELFPAY ==
[2023-11-17 16:28] LABS: MANUAL DIFF FLAG NO
[2023-11-17 16:36] LABS: Basophils Absolute Auto 0.1 X10*3/uL (0.0-0.2); Basophils Percent Auto 0.9 % (0-2); Eosinophils Absolute Auto 0.1 X10*3/uL (0.0-0.4); Eosinophils Percent Auto 0.9 % (0-4); Hematocrit 39.7 % (37.0-47.0); Hemoglobin 12.9 g/dl (12.0-16.0); Imm Gran Abs Auto 0.04 X10*3/uL (0.00-0.03); Imm Gran Pct Auto 0.6 % (0.0-0.4); Lymphocytes Absolute Auto 2.2 X10*3/uL (1.2-4.9); Mean Corpuscular HGB Conc 32.5 g/dl (31.0-35.0); Mean Corpuscular Hemoglobin 29.1 pg (27.0-33.0); Mean Corpuscular Volume 89.4 fL (80.0-98.0); Mean Platelet Volume 11.8 fL (9.4-12.3); Monocytes Absolute Auto 0.5 X10*3/uL (0.1-1.2); Monocytes Percent Auto 6.6 % (2-11); Platelet Count 268 X10*3/uL (160-400); Red Blood Count 4.44 X10*6/uL (4.20-5.50); Red Cell Distribution Width 15.3 % (11.0-16.0); White Blood Count 6.8 X10*3/uL (4.8-10.8)
== END 2023-11-17 14:11 | disposition home or self-care (01) ==
LOC: HO.HMGCLR 14:10
PROVIDERS: Visit Provider Psychiatry & Neurology Psychiatry
DX: Z79.899 Other long term (current) drug therapy (principal); F20.2 Catatonic schizophrenia; F25.0 Schizoaffective disorder, bipolar type
CPT/HCPCS: 36415; 85025

== ENCOUNTER 2023-11-20 10:15 | Outpatient (RCR) | payer BC, SELFPAY ==
[2023-11-09 11:48] VITALS: BP 102/74; PULSE 96; TEMP 37.3
[2023-11-09 11:51] VITALS: BMI 37.6
--- NOTE | 2023-11-09 15:44 | PC.ADMIT ---
Patient is a 38 year old female who self referred to [facility] d/t increased depression, anxiety and low motivation to do things. Increased sleep and isolation. Experiencing AH, VH, and paranoid thoughts for the past few months. Patient stated AH are not new. She stated she experienced similar symptoms the last time she was at [facility] and felt it was helpful. Stated she hears voices telling her to do something to herself. She would not elaborate. She denied SI or thoughts to harm herself. She reports she is able to reach out for help when needed thus is at [facility]. Patient reports she was hospitalized in May 2023 at [facility]. Patient stated, I did not feel safe to be alone. I called crisis and someone showed up at my house and assessed me and from there I went to the hospital . Patient does not feel she needs inpatient hospitalization at this time. She has the crisis number if needed. Patient reports her therapist and are supportive. She reports compliance with medications. She was not aware that Risperdal and Klonopin are PRN medications that she can take twice a day if needed. She reports taking once a day. Medication education provided. Medications reconciled with patient and patient's pharmacy. See below for more information. Patent denied any substance use. Patient is alert and oriented x4. Calm and cooperative. Thoughts are clear and logical. She presented as preoccupied in thoughts at times with depressed mood and affect. She denied SI, no HI. She was given a copy of her safety plan if needed. She reports stresses including having a teenage son. Dr Johnson made some medication changes based on patient's presentation. I wrote down medication changes per Dr. Johnson and gave them to Daysi per her request. Patient appeared to understand the medication changes.
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
--- NOTE | 2023-11-12 14:58 | HO.PHP ---
Client's case has been opened and reviewed in team.
--- NOTE | 2023-11-13 12:24 | HO.PHPPROGNO ---
Subjective Subjective Date of Service: 11/13/23 Reason For Visit: schizophrenia Interim History: Patient seen for follow-up. She presents as flat, depressed. She complains of feeling sleepy this morning. Denies taking the risperidone this AM, I forgot . She says she has tried taking the AM dose but can recall which days she remembered to take the AM dose. She says she is tired all the time so does not seem that RIsperdal is contributing. She admits she sometimes forgets to take her AM meds. She reports being fully compliant with HS meds. She reports things are good at home. She reports doing okay. Trying to participate more . Feels bad that her has to do so much. I feel guilty She reports mood as stable . but presents flat, withdrawn. Appears internally preoccupied. She says I cant' focus . She endorses AH, reluctantly. Voices are generally negative they tell me I'm a piece of s&*t , sometimes CT-AH to harm herself but denies any thoughts of acting on the voices. Experiences transient passive SI, but denies any thoughts of giving up on life. None today, just AH. DEnies any VH or TH. She asked at one point to look in my office closet (which she has done during her previous admission to [facility]), which happened to be locked, and said that's good and did not feel the need for me to open it then. She endorses delusional thoughts of other's reading her mind but not overly preoccupied with this and has some insight. SHe denies any paranoid ideation when she is home. Denies any AI or HI. Sleep, appetite intact. Energy, motivation, concentration low. Was noted to have a severe vitamin D deficiency (01/2023 level of 9.6) she denies taking any vitamin D supplements. WIll order those today and check other nutritional labs along with routine lab work. She cotniunes on Clozaril, denies any issues. She is scheduled for next blood draw for CBC next week, she could have lab work done same time. Last ANC checked in Oct was 3.4. Medication Compliance: Intermittent Side effects from medications: No Attending Groups: Yes Review of Systems Acute medical concerns: No Mental Status Exam Mental Status Exam Narrative: Alert, oriented, in no acute distress. Groomed.? Slow gait, slow movements no tic or tremor, no arm swing when walking. Anxious, guarded, a little more engageable today.? Intermittent eye contact. Mood is depressed. Affect flat. Speech is normal rate, low volume, low prosody. mild latency. Thought process is circumstantial, scattered, but? without illogicality or FOI/STEPHANIE. Thought content relevant to stressors, paranoid ideation, some delusional content shared but maintains insight. ?Internally preoccupied. +AH, occasional CT-AH, denies VH/TH/OT. No thoughts of harming self or others. Cognition with remote and scattered memory impairment.. Sensorium clear. Insight fair but adequate. Judgment fair but adequate. Diagnostics Vital Signs (24Hr): BMI result Body Mass Index 37.6 Assessment & Plan Assessment & Plan (1) Schizoaffective disorder, depressive type: Status: Acute Code(s): F25.1 - Schizoaffective disorder, depressive type (2) PTSD (post-traumatic stress disorder): Status: Acute Code(s): F43.10 - Post-traumatic stress disorder, unspecified (3) Anxiety disorder, unspecified: Status: Acute Code(s): F41.9 - Anxiety disorder, unspecified Plan we discussed importance of adherence to medications (christin in AM patient only taking <2-3x/week) she is agreeable with VNA services continue risperidone 0.5 mg QAM (not adhering) increase risperidone to 1.5 mg QHS (1 mg tab + 0.5 mg tab) take night meds earlier - by 9pm continue sertraline 50 mg (1/2 tablet) daily for 2 -4 days, then increase to 50 mg tablet daily continue clonazepam 0.5 mg BID prn anxiety (patient usually takes at night - she was encouraged to bring some of the medication to program to target anxiety) continue clozapine 500 mg qhs continue trazodone 100 mg qhs continue all other regular medications?- melatonin 10 mg qhs prn Reviewed recent CBC from 10/2023 with ANC wnl, lab work from 04/2023 with HbA1c 6.1 (prediabetic), vitamin D 9.7 (severe deficiency) Lab slip given to check routine lab work, vitamin D, nutritional panel, glucose Hba1c still start vitamin D supplementation EKG, routine will be checked, last EKG from 04/2023 with abnormal findings Continue to monitor Patient educated on: diagnosis, medication risk/benefits and other (importance of medication compliance and strategies) Informed Consent: understands Reason for contiued partial hosp. stay Substantial Risk for: harm to self, inability to function, rapid decompensation and med/psych decompensation Certification I certify that partial hospital treatment is medically necessary due to the symptoms and problems resulting from the patient's mental illness and the failure to treat the patient at the partial hospital level of care would likely result in the patient requiring inpatient psychiatric care which could not be prevented at a less intensive level of care. Total time managing care of this patient today __40__ minutes. Discharge Plan Discharge Attending provider: Polina Johnson Additional Instructions: Appointment on December 04, 2023 at 12:[address] Adams at [facility] in [place]. Medications: New sertraline 50 mg tablet 50 mg PO DAILY Qty: 30 0RF Rx Instructions: take 1/2 tablet po daily for 2-4 days, then increase to one tablet po daily ergocalciferol (vitamin D2) [Vitamin D2] 1,250 mcg (50,000 unit) capsule 1,250 mcg PO QWEEK Qty: 14 0RF risperidone 0.5 mg tablet 0.5 mg PO BID Qty: 60 0RF Rx Instructions: in AM and late afternoon/suppertime Continued clonazepam 0.5 mg tablet 0.5 mg PO BID PRN (Reason: Anxiety) clozapine [Clozaril] 100 mg Tablet 100 mg PO BEDTIME clozapine [Clozaril] 200 mg Tablet 400 mg PO BEDTIME Rx Instructions: Take 2 tabs at bedtime along with 100 mg tablet for a total dose of 500 mg at bedtime. melatonin 10 mg Tablet 10 mg PO BEDTIME PRN (Reason: Insomnia) Rx Instructions: Patient stated she takes OTC as needed for insomnia. Reports she took a few nights ago. trazodone 100 mg tablet 100 mg PO BEDTIME 30 Days Qty: 30 0RF Changed risperidone 1 mg tablet 1 mg PO BEDTIME Qty: 30 0RF Patient Comments: Per doctor Alex take 1 mg at HS. Discontinued sertraline 25 mg Tablet 25 mg PO DAILY 30 Days Qty: 30 0RF Rx Instructions: Take 1/ tab for 2 days then take one tab daily. Stand Alone Forms: Patient Portal Discharge page Patient Education: Schizoaffective Disorder (DC) Print Language: Cape Verdean
--- NOTE | 2023-11-13 12:48 | PC.NURSE ---
Called and spoke to Cuauhtemoc from patient's PCP office requesting a referral for VNA services for medication management. Awaiting call back.
--- NOTE | 2023-11-13 13:59 | PC.NURSE ---
Doctor Alex recommended VNA services for medication management for Veronika for more support with medication adherence. She has a difficult time remembering to take medications during the day. She stated she does remember to take her medications at night. Veronika is also interested in VNA services. I called Veronika's PCP's office and spoke to Olga who coordinates referrals for VNA services. Patient will need to meet with her PCP in order to make the referral. I reviewed with Olga Tavarez's medication list. Veronika has an appointment with her PCP Dr. Adams on 12/01/23 at 0800 to start the process. Veronika is aware. I recommended that Veronika ask her for help with her medications in the meantime until she receives VNA services. Veronika agreed. Dr Johnson is aware.
--- NOTE | 2023-11-17 13:12 | PC.NURSE ---
Reece from [facility]'s doctors office called who coordinates VNA services for patients. She stated that [facility] insurance does not cover VNA services for medication management. Dr Johnson and Daysi are aware.
--- NOTE | 2023-11-17 22:16 | P.PNPSP_ITS ---
Subjective Subjective Date of Service: 11/17/23 Reason For Visit: schizophrenia Interim History: Patient seen for follow-up. She presents still as a but slowed and flat, but does appear a little brighter, better eye contact. She reports having a good weekend with her family. She took the AM risperidone 0.5 mg for the past 3 days in a row, but forgot this again morning. She admits her energy was a little better when she took the AM dose of risperidone. She continues to take RIsperdal 1 mg qhs and forgot about increasing the dose to 1.5 mg. Sounds like we should focus our efforts on improving adherence to AM dose, especially since she noticed that AH was significantly better on days she remembered to take risperidone in the AM. She says weekends are easier because her is around and can remind her. During the week he is around only in the evenings to remind her. On mornings she says she is always in a big brice getting things together and then getting my son to school, so I dont think about myself . She has insight into doing better when she is adherent with medication, even concentration, energy and anxiety were better when she takes the AM risperidone. She brightened and was a little self-deprecating in regards to being contradictory about not being motivated to take the AM RIsperdal even though she acknowledges she feels better I know, it doesn't make sense . We talked about possibly involving her if that would be helpful, which she wavered on, but said No, I can do it . She endorses some AH since this morning in groups, also was seeing some shadows briefly. When asked if she brought any meds with her, she suddenly recalls she does have some on her and says she will take the AM dose now. Medication Compliance: Intermittent Side effects from medications: No Attending Groups: Yes Review of Systems Acute medical concerns: No Mental Status Exam Mental Status Exam Narrative: Alert, oriented, in no acute distress. Groomed.? Slow gait, slow movements no tic or tremor, no arm swing when walking. Anxious, guarded, a little more engageable today.? Intermittent eye contact. Mood is depressed. Affect flat. Speech is normal rate, low volume, low prosody. mild latency. Thought process is circumstantial, scattered, but? without illogicality or FOI/STEPHANIE. Thought content relevant to stressors, paranoid ideation, some delusional content shared but maintains insight. ?Internally preoccupied. +AH, occasional CT-AH, denies VH/TH/OT. No thoughts of harming self or others. Cognition with remote and scattered memory impairment.. Sensorium clear. Insight fair but adequate. Judgment fair but adequate. Diagnostics Vital Signs (24Hr): BMI result Body Mass Index 37.6 Assessment & Plan Assessment & Plan (1) Schizoaffective disorder, depressive type: Status: Acute Code(s): F25.1 - Schizoaffective disorder, depressive type (2) PTSD (post-traumatic stress disorder): Status: Acute Code(s): F43.10 - Post-traumatic stress disorder, unspecified (3) Anxiety disorder, unspecified: Status: Acute Code(s): F41.9 - Anxiety disorder, unspecified Plan pending VNA services continue risperidone 0.5 mg QAM (not adhering) increase risperidone to 1.5 mg QHS (pt still at 1 mg qhs) alternatively she could take the 0.5 mg earlier in the evening to help with AVH in evening and continue 1 mg qhs continue sertraline 50 mg (1/2 tablet) daily for 2 -4 days, then increase to 50 mg tablet daily continue clonazepam 0.5 mg BID prn anxiety (patient usually takes at night - she was encouraged to bring some of the medication to program to target anxiety) continue clozapine 500 mg qhs continue trazodone 100 mg qhs continue all other regular medications?- melatonin 10 mg qhs prn continue vitamin D2 93032 IU q weekly Reviewed recent CBC from 10/2023 with ANC wnl, lab work from 04/2023 with HbA1c 6.1 (prediabetic), vitamin D 9.7 (severe deficiency) Pending routine lab work and EKG, reports she will have it done after groups today EKG, routine will be checked, last EKG from 04/2023 with abnormal findings Continue to monitor Certification I certify that partial hospital treatment is medically necessary due to the symptoms and problems resulting from the patient's mental illness and the failu re to treat the patient at the partial hospital level of care would likely result in the patient requiring inpatient psychiatric care which could not be prevented at a less intensive level of care. Total time managing care of this patient today ____ minutes. Discharge Plan Discharge Attending provider: Polina Johnson Additional Instructions: Appointment on December 04, 2023 at 12:[address] Adams at [facility] in [place]. Medications: New sertraline 50 mg tablet 50 mg PO DAILY Qty: 30 0RF Rx Instructions: take 1/2 tablet po daily for 2-4 days, then increase to one tablet po daily ergocalciferol (vitamin D2) [Vitamin D2] 1,250 mcg (50,000 unit) capsule 1,250 mcg PO QWEEK Qty: 14 0RF risperidone 0.5 mg tablet 0.5 mg PO BID Qty: 60 0RF Rx Instructions: in AM and late afternoon/suppertime Continued clonazepam 0.5 mg tablet 0.5 mg PO BID PRN (Reason: Anxiety) clozapine [Clozaril] 100 mg Tablet 100 mg PO BEDTIME clozapine [Clozaril] 200 mg Tablet 400 mg PO BEDTIME Rx Instructions: Take 2 tabs at bedtime along with 100 mg tablet for a total dose of 500 mg at bedtime. melatonin 10 mg Tablet 10 mg PO BEDTIME PRN (Reason: Insomnia) Rx Instructions: Patient stated she takes OTC as needed for insomnia. Reports she took a few nights ago. trazodone 100 mg tablet 100 mg PO BEDTIME 30 Days Qty: 30 0RF Changed risperidone 1 mg tablet 1 mg PO BEDTIME Qty: 30 0RF Patient Comments: Per doctor Alex take 1 mg at HS. Discontinued sertraline 25 mg Tablet 25 mg PO DAILY 30 Days Qty: 30 0RF Rx Instructions: Take 1/ tab for 2 days then take one tab daily. Stand Alone Forms: Patient Portal Discharge page Patient Education: Schizoaffective Disorder (DC) Print Language: Faroese
--- NOTE | 2023-11-20 21:28 | P.PNPSP_ITS ---
Subjective Subjective Date of Service: 11/20/23 Reason For Visit: schizophrenia Interim History: Patient seen for follow-up, anticipating discharge at the end of program today.? Feeling pretty good I did remember to take them this morning Patient has been taking the AM Risperdal more regularly and has noticed an improvement in mood, anxiety and AH. AH continues but is more in the background now . She heard voices briefly during groups but not the entire time, and denies any presently. She seems more present, attentive and engaged. Paranoid thoughts are also better, not totally resolved but not really an issue . Denies any other hallucinations. She reports the voices were most noticable in the evenings (before taking night meds). SHe has not increased the HS Risperdal and continues on 1 mg at 9 pm. She was encouraged to try taking an additional 0.5 mg around suppertime again. Sleep has been good. Appetite okay . She denies any acute issues or concerns. Medication compliant, medications well- tolerated. Denies any adverse effects.? Mood is stable.? Discharge from [facility] Continue regular medications Refills sent to pharmacy Will defer further medication management to outpatient provider *Safety plan reviewed *Discharge diagnoses, treatment course, discharge plan have been reviewed with patient (including medication regime, medication management, potential side effects) as well as treatment rationale were also revisited *Discharge paperwork signed and given to patient, copy sent for scanning to chart Medication Compliance: Yes Side effects from medications: No Attending Groups: Yes Review of Systems Acute medical concerns: No Medical Review of Systems: unchanged Mental Status Exam Mental Status Exam Narrative: Alert, oriented, in no acute distress. Slow gait. Mood stable. Affect slight increase in range in affect . Speech is normal. Thought process is linear, coherent. Thought content relevant to stressors, future-oriented. No delusional content elicited. Transient AH, denies CT-AH, denies VH/TH. ? No thoughts of harming self or others. Cognition with remote and scattered memory impairment.. Sensorium clear. Insight fair-good, judgment fair but adequate. Diagnostics Vital Signs (24Hr): BMI result Body Mass Index 37.6 Assessment & Plan Assessment & Plan (1) Schizoaffective disorder, depressive type: Status: Acute Code(s): F25.1 - Schizoaffective disorder, depressive type (2) PTSD (post-traumatic stress disorder): Status: Acute Code(s): F43.10 - Post-traumatic stress disorder, unspecified (3) Anxiety disorder, unspecified: Status: Acute Code(s): F41.9 - Anxiety disorder, unspecified Plan Discharge from [facility] continue risperidone 0.5 mg QAM continue risperidone 1 mg tab QHS encourage to utilize PRN risperidone 0.5 mg at supper time continue sertraline 50 mg (1/2 tablet) daily for 2 -4 days, then increase to 50 mg tablet daily continue clonazepam 0.5 mg BID prn anxiety (patient usually takes at night - she was encouraged to bring some of the medication to program to target anxiety) continue clozapine 500 mg qhs continue trazodone 100 mg qhs continue all other regular medications?- melatonin 10 mg qhs prn continue vit D2 18727 IU q weekly Reviewed recent CBC from 10/2023 with ANC wnl, lab work from 04/2023 with HbA1c 6.1 (prediabetic), vitamin D 9.7 (severe deficiency) Routine lab work apparently not done EKG, routine will be checked, last EKG from 04/2023 with abnormal findings Refills sent to pharmacy Will defer further medication management to outpatient provider *Safety plan reviewed *Discharge diagnoses, treatment course, discharge plan have been reviewed with patient (including medication regime, medication management, potential side effects) as well as treatment rationale were also revisited *Discharge paperwork signed and given to patient, copy sent for scanning to chart Patient educated on: diagnosis, medication risk/benefits and other (Med compliance) Informed Consent: understands Reason for contiued partial hosp. stay Substantial Risk for: stable for discharge Certification I certify that partial hospital treatment is medically necessary due to the symptoms and problems resulting from the patient's mental illness and the failure to treat the patient at the partial hospital level of care would likely result in the patient requiring inpatient psychiatric care which could not be prevented at a less intensive level of care. Telehealth Telehealth Telehealth Platform: Other (please specify) ([facility]) Location of provider rendering services: other (private office) Location of patient: other ([facility]) Patient Identification confirmed using: Name, : Yes Telehealth method: video Patient verbally consented to treatment: Yes Total time managing care of this patient today __30__ minutes. Discharge Plan Discharge Attending provider: Polina Johnson Additional Instructions: Appointment on December 04, 2023 at 12:[address] Adams at [facility] in [place]. Medications: New sertraline 50 mg tablet 50 mg PO DAILY Qty: 30 0RF Rx Instructions: take 1/2 tablet po daily for 2-4 days, then increase to one tablet po daily ergocalciferol (vitamin D2) [Vitamin D2] 1,250 mcg (50,000 unit) capsule 1,250 mcg PO QWEEK Qty: 14 0RF risperidone 0.5 mg tablet 0.5 mg PO BID Qty: 60 0RF Rx Instructions: in AM and late afternoon/suppertime Continued clonazepam 0.5 mg tablet 0.5 mg PO BID PRN (Reason: Anxiety) clozapine [Clozaril] 100 mg Tablet 100 mg PO BEDTIME clozapine [Clozaril] 200 mg Tablet 400 mg PO BEDTIME Rx Instructions: Take 2 tabs at bedtime along with 100 mg tablet for a total dose of 500 mg at bedtime. melatonin 10 mg Tablet 10 mg PO BEDTIME PRN (Reason: Insomnia) Rx Instructions: Patient stated she takes OTC as needed for insomnia. Reports she took a few nights ago. trazodone 100 mg tablet 100 mg PO BEDTIME 30 Days Qty: 30 0RF Changed risperidone 1 mg tablet 1 mg PO BEDTIME Qty: 30 0RF Patient Comments: Per doctor Alex take 1 mg at HS. Discontinued sertraline 25 mg Tablet 25 mg PO DAILY 30 Days Qty: 30 0RF Rx Instructions: Take 1/ tab for 2 days then take one tab daily. Stand Alone Forms: Patient Portal Discharge page Patient Education: Schizoaffective Disorder (DC) Print Language: Bermud[place]
== END 2023-11-20 23:59 | disposition home or self-care (01) ==
LOC: HO.PHPA 10:15
PROVIDERS: Visit Provider Psychiatry & Neurology Psychiatry
DX: F25.1 Schizoaffective disorder, depressive type (principal); F43.10 Post-traumatic stress disorder, unspecified; F41.9 Anxiety disorder, unspecified; Z79.899 Other long term (current) drug therapy
CPT/HCPCS: 90791; 90853

== ENCOUNTER 2023-12-12 11:26 | Outpatient (REF) | payer BC, SELFPAY ==
[2023-12-12 12:49] LABS: MANUAL DIFF FLAG NO
[2023-12-12 12:55] LABS: Basophils Percent Auto 0.4 % (0-2); Eosinophils Percent Auto 0.1 % (0-4); Hematocrit 39.7 % (37.0-47.0); Hemoglobin 13.3 g/dl (12.0-16.0); Imm Gran Abs Auto 0.02 X10*3/uL (0.00-0.03); Imm Gran Pct Auto 0.3 % (0.0-0.4); Lymphocytes Percent Auto 43.6 % (20-40); Mean Corpuscular HGB Conc 33.5 g/dl (31.0-35.0); Mean Corpuscular Hemoglobin 29.4 pg (27.0-33.0); Mean Corpuscular Volume 87.6 fL (80.0-98.0); Mean Platelet Volume 11.4 fL (9.4-12.3); Monocytes Absolute Auto 0.4 X10*3/uL (0.1-1.2); Monocytes Percent Auto 5.5 % (2-11); Neutrophils Absolute Auto 3.4 x10*3/uL (2.0-8.3); Neutrophils Percent Auto 50.1 % (45-73); Platelet Count 303 X10*3/uL (160-400); Red Blood Count 4.53 X10*6/uL (4.20-5.50); White Blood Count 6.9 X10*3/uL (4.8-10.8)
== END 2023-12-12 11:27 | disposition home or self-care (01) ==
LOC: HO.HMGCLR 11:26
PROVIDERS: Visit Provider Psychiatry & Neurology Psychiatry
DX: Z79.899 Other long term (current) drug therapy (principal); F25.0 Schizoaffective disorder, bipolar type
CPT/HCPCS: 36415; 85025

== ENCOUNTER 2024-01-11 08:56 | Outpatient (REF) | payer BC, SELFPAY ==
[2024-01-11 13:27] LABS: MANUAL DIFF FLAG NO
[2024-01-11 13:33] LABS: Basophils Percent Auto 0.5 % (0-2); Hematocrit 39.1 % (37.0-47.0); Hemoglobin 12.9 g/dl (12.0-16.0); Imm Gran Abs Auto 0.04 X10*3/uL (0.00-0.03); Imm Gran Pct Auto 0.5 % (0.0-0.4); Lymphocytes Percent Auto 39.9 % (20-40); Mean Corpuscular Hemoglobin 29.1 pg (27.0-33.0); Mean Corpuscular Volume 88.1 fL (80.0-98.0); Mean Platelet Volume 11.4 fL (9.4-12.3); Monocytes Absolute Auto 0.5 X10*3/uL (0.1-1.2); Neutrophils Absolute Auto 3.9 x10*3/uL (2.0-8.3); Neutrophils Percent Auto 52.1 % (45-73); Platelet Count 266 X10*3/uL (160-400); Red Blood Count 4.44 X10*6/uL (4.20-5.50); White Blood Count 7.5 X10*3/uL (4.8-10.8)
== END 2024-01-11 08:57 | disposition home or self-care (01) ==
LOC: HO.HMGCLR 08:56
PROVIDERS: Visit Provider Psychiatry & Neurology Psychiatry
DX: F25.0 Schizoaffective disorder, bipolar type (principal); Z79.899 Other long term (current) drug therapy
CPT/HCPCS: 36415; 85025

== ENCOUNTER 2024-02-08 12:46 | Outpatient (REF) | payer BC, SELFPAY ==
[2024-02-08 16:06] LABS: MANUAL DIFF FLAG NO
[2024-02-08 16:09] LABS: Basophils Absolute Auto 0.1 X10*3/uL (0.0-0.2); Basophils Percent Auto 0.5 % (0-2); Hematocrit 39.9 % (37.0-47.0); Hemoglobin 13.5 g/dl (12.0-16.0); Imm Gran Abs Auto 0.04 X10*3/uL (0.00-0.03); Imm Gran Pct Auto 0.4 % (0.0-0.4); Lymphocytes Absolute Auto 3.8 X10*3/uL (1.2-4.9); Lymphocytes Percent Auto 41.4 % (20-40); Mean Corpuscular HGB Conc 33.8 g/dl (31.0-35.0); Mean Corpuscular Hemoglobin 29.9 pg (27.0-33.0); Mean Corpuscular Volume 88.3 fL (80.0-98.0); Mean Platelet Volume 11.6 fL (9.4-12.3); Monocytes Absolute Auto 0.6 X10*3/uL (0.1-1.2); Monocytes Percent Auto 6.2 % (2-11); Neutrophils Absolute Auto 4.8 x10*3/uL (2.0-8.3); Neutrophils Percent Auto 51.5 % (45-73); Platelet Count 265 X10*3/uL (160-400); Red Blood Count 4.52 X10*6/uL (4.20-5.50); Red Cell Distribution Width 14.7 % (11.0-16.0); White Blood Count 9.3 X10*3/uL (4.8-10.8)
== END 2024-02-08 12:47 | disposition home or self-care (01) ==
LOC: HO.HMGCLR 12:46
PROVIDERS: Visit Provider Psychiatry & Neurology Psychiatry
DX: Z79.899 Other long term (current) drug therapy (principal); F25.0 Schizoaffective disorder, bipolar type
CPT/HCPCS: 36415; 85025